=== PATIENT | female | born 1995 | race Caucasian/White ===

== ENCOUNTER 2023-02-10 20:54 | Outpatient (REF) | payer SELFPAY ==
[2023-02-14 16:08] LABS: Age Gdln ACOG Testing Note (.); IGP, rfx Aptima HPV ASCU Note (.)
== END 2023-02-10 20:55 | disposition home or self-care (01) ==
LOC: LAB 20:54
PROVIDERS: Visit Provider Obstetrics & Gynecology
DX: Z12.4 Encounter for screening for malignant neoplasm of cervix (principal)
CPT/HCPCS: G0145

== ENCOUNTER 2023-03-21 11:03 | Outpatient (OUT) | payer OTHER, SELFPAY ==
[2023-03-21 11:42] LABS: Basophils Percent Auto 0.2 % (0.2-2.0); Eosinophils Absolute Auto 0.1 10^3/uL (0.0-0.7); Eosinophils Percent Auto 1.4 % (0.9-7.0); Hematocrit 34.2 % (36.0-48.0); Hemoglobin 11.3 g/dL (12.0-16.0); Immature Granulocytes Abs Auto 0.01 10^3/uL (0.00-0.03); Immature Granulocytes Pct Auto 0.2 % (0.0-0.5); Lymphocytes Absolute Auto 1.6 10^3/uL (1.2-3.8); Lymphocytes Percent Auto 28.8 % (20.5-60.0); Mean Corpuscular Volume 87.9 fL (81.0-99.0); Mean Platelet Volume 8.9 fL (9.5-13.5); Monocytes Absolute Auto 0.4 10^3/uL (0.3-0.8); Monocytes Percent Auto 7.4 % (1.7-12.0); Neutrophils Absolute Auto 3.4 10^3/uL (1.4-6.5); Platelet Count 234 10^3/uL (150-450); Red Blood Count 3.89 10^6/uL (4.20-5.40); Red Cell Distribution Width 12.8 % (11.0-15.0); White Blood Count 5.5 10^3/uL (4.0-11.0)
[2023-03-21 11:44] LABS: Erythrocyte Sedimentation Rate 9 mm/hr (<=20)
[2023-03-21 12:11] LABS: Estimated Average Glucose 100 mg/dL; Glycohemoglobin A1C 5.1 % (4.5-6.2)
[2023-03-21 12:26] LABS: Alanine Aminotransferase 58 U/L (14-59); Albumin Globulin Ratio 0.9; Albumin Level 3.6 g/dL (3.4-5.0); Alkaline Phosphatase 73 U/L (46-116); Anion Gap 8.5; Aspartate Amino Transferase 29 U/L (15-37); BUN Creatinine Ratio 16.4; Bilirubin Total 0.3 mg/dL (0.2-1.0); Calcium 8.5 mg/dL (8.5-10.1); Carbon Dioxide 27.5 mmol/L (21.0-32.0); Chloride 103 mmol/L (98-107); Estimated GFR (African America >60 (>=60); Estimated GFR (Non-African Ame >60 (>=60); Free T3 2.52 pg/mL (2.18-3.98); Globulin 3.8 g/dL; Glucose 81 mg/dL (74-106); Magnesium 1.9 mg/dL (1.8-2.4); Sodium 135 mmol/L (136-145); Total Protein 7.4 g/dL (6.4-8.2)
--- NOTE | 2023-03-21 13:19 | CA_ITS ---
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: : 1995 Requested By: SABRINA RAMIREZ Order Number: [id number] Reading MD: SHAHLA KENDALL Interpretive Statements Predominant rhythm is sinus with average rate of 75 bpm w 1st degree AV block Tachycardia - max rate of 123 bpm - longest episode of 14min 51sec with rates between 110-117 bpm Bradycardia - min rate of 46 bpm - longest episodeof 5min 49sec with rates between 55-59 bpm Ventricular ectopy - 9 PVC Patient triggered events: 21 - associated with symptoms or palpitations, chest pain, dizziness - associated with ventricular ectopy, PACs - associated with rates of 100, 120 and the remainder NSR Impression: Predominant rhythm is sinus with average rate of 75 bpm w 1st degree AV block FAstest rate of 123 bpm and slowest rate of 46 bpm 9 PVC Electronically Signed On 04-04-2023 7:18:00 EST by SHAHLA KENDALL
[2023-03-22 04:07] LABS: Antistreptolysin O Ab 91.2 IU/mL (0.0-200.0)
== END 2023-03-21 11:04 | disposition home or self-care (01) ==
LOC: CARD 11:03
PROVIDERS: PCP Family Medicine; Visit Provider Family Medicine
DX: R00.2 Palpitations (principal)
CPT/HCPCS: 36415; 80053; 83036; 83540; 83735; 84436; 84443; 84481; 85025; 85652; 86060; 93246

== ENCOUNTER 2023-09-10 15:18 | Outpatient (OUT) | payer OTHER, SELFPAY ==
--- NOTE | 2023-09-10 15:21 | US_ITS ---
Patient Name: MINNIE TURCIOS MR#: [id number] : 1995 Exam Date: 09/10/2023 Ordering Doctor: DR Saul Eugene . RADIOLOGY REPORT PROCEDURE: US BREAST LT LIMITED COMPARISON: None. INDICATIONS: mass of left breast, unspecified quadrant N63.20 TECHNIQUE: Breast ultrasound was performed, with evaluation focusing only on specific areas of concern. FINDINGS: DIAGNOSTIC CATEGORY 0--INCOMPLETE: NEED ADDITIONAL IMAGING EVALUATION. LEFT BREAST: No abnormal or suspicious findings via ultrasound evaluation. If palpable finding persists diagnostic mammography of left breast should be performed for further evaluation. RECOMMENDATIONS: MAMMOGRAPHIC VIEWS: LEFT BREAST - MLO, CC PLEASE NOTE: A NORMAL ULTRASOUND EXAMINATION DOES NOT EXCLUDE THE POSSIBILITY OF BREAST CANCER. A CLINICALLY SUSPICIOUS PALPABLE LUMP SHOULD BE BIOPSIED. Dictated by: Daljit Chamberlain M.D. on 09/12/2023 at 14:28 Approved by: Daljit Chamberlain M.D. on 09/12/2023 at 14:31
--- OUTSIDE RECORDS SUMMARY | 2023-09-10 15:48 | XMS_ITS | CCD ---
Author Organization [facility] Care Team Providers Care Length Control Tester Name Role Phone Bakari Amezcua Unavailable Unavailable Sadiq, Michael L Unavailable Unavailable Sadiq, Michael L Unavailable Unavailable BAKRAI AMEZCUA Unavailable Unavailable NO FAMILY DOCTOR, NO FAMILY DOCTOR Unavailable Unavailable GABINITHYA DELMY RUSS Unavailable Unav ailable NO FAMILY DOCTOR, NO FAMILY DOCTOR Unavailable Unavailable HOY ., DR BENNETT Admitting Unavailable HOY ., DR BENNETT Attending Unavailable HOY ., DR BENNETT Primary Care Unavailable HOY ., DR BENNETT Consulting Unavailable HOY ., DR BENNETT Admitting Unavailable HOY ., DR BENNETT Attending Unavailable HOY ., DR BENNETT Primary Care Unavailable HOY ., DR BENNETT Consulting Unavailable MIKE ., DR HO Admitting Unavailable MIKE ., DR HO Attending Unavailable BRENDA, DR HAL Varma Primary Care Unavailable MIKE ., DR HO Consulting Unavailable Problems Active Problems Problem Classification Problem Date Documented Da te Episodic/Chronic Malaise and fatigue (1 source) Other fatigue; Translations: [OTHER FATIGUE] Onset: 09-09-2022 Episodic Other upper respiratory infections (1 source) Chronic sinusitis, unspecified; Translations: [Chronic sinusitis, unspecified] Onset: 11-25-2017 Chronic Unclassified (2 sources) Unspecified infectious disease / B99.9(ICD-9) Onset: 01-15-2018 Unclassified (2 sources) Chronic sinusitis, unspecified / J32.9(ICD-9) Onset: 11-25-2017 Past or Other Problems Problem Classification Problem Date Documented Date Episodic/Chronic Immunizations and screening for infectious disease (2 sources) Encounter for screening for human papillomavirus (HPV); Translations: [Encounter for screening for infections with a predominantly sexual mode of transmission] Onset: 12-28-2021 Episodic Other female genital disorders (1 source) Other specified noninflammatory disorders of vagina; Translations: [OTH SPEC NONINFLAMMATORY D/O VAGINA] Onset: 12-28-2021 Episodic Other screening for suspected conditions (not mental disorders or infectious disease) (4 sources) Encounter for screening for malignant neoplasm of cervix; Translations: [ENC SCREENING MALIG NEOPLASM CERV] Onset: 12-25-2021 Episodic Unclassified (1 source) Unspecified infectious disease; Translations: [Unspecified infectious disease] Onset: 01-15-2018 Results Test Name Value Interpretation Reference Range Facility CBC AUTO DIFFon 09-04-2022 BASO # 0.0 103/ul Normal 0.0-0.1 [facility] Comment on above: Performed By: #### C BC #### [facility] [address] [address] [address] Jinny Palomino Basophils/100 WBC (Bld) 0.2 % Normal 0.2-2.0 [facility] Comment on above: Performed By: #### C BC #### [facility] [address] [address] [address] Jinny Palomino EO # 0.1 103/ul Normal 0.0-0.7 [facility] Comment on above: Performed By: #### C BC #### [facility] [address] [address] [address] Jinny Palomino Eosinophils/100 WBC (Bld) 1.9 % Normal 0.9-7.0 [facility] Comment on above: Performed By: #### C BC #### [facility] [address] [address] [address] Jinny Palomino Erythrocyte distribution width (RBC) [Ratio] 12.6 % Normal 11.0-15.0 [facility] Comment on above: Performed By: #### C BC #### [facility] [address] [address] [address] Jinny Palomino Hematocrit (Bld) [Volume fraction] 35.7 % Critically low 36.0-48.0 [facility] Comment on above: Performed By: #### C BC #### [facility] [address] [address] [address] Jinny Palomino Hemoglobin (Bld) [Mass/Vol] 12.3 g/dL Normal 12.0-16.0 [facility] Comment on above: Performed By: #### C BC #### [facility] [address] [place] [address] Dr. Jinny Palomino IG # 0.01 10e3/ul Normal 0.00-0.03 [facility] Comment on above: Performed By: #### C BC #### [facility] [address] [place] [address] Dr. Jinyn Palomino IG % 0.2 % Normal 0.0-0.5 [facility] Comment on above: Performed By: #### C BC #### [facility] [address] [place] [address] Dr. Jinny Palomino LYMPH # 2.2 103/ul Normal 1.2-3.8 [facility] Comment on above: Performed By: #### C BC #### [facility] [address] [place] [address] Dr. Jinny Palomino Lymphocytes/100 WBC (Bld) 37.2 % Normal 20.5-60.0 [facility] Comment on above: Performed By: #### C BC #### [facility] [address] [place] [address] Dr. Jinny Palomino MANUAL DIFF REQ NO Normal [facility] Comment on above: Performed By: #### C BC #### [facility] [address] [place] [address] Dr. Jinny Palomino MCH (RBC) [Entitic mass] 29.1 pg Normal 26.7-34.0 [facility] Comment on above: Performed By: #### C BC #### [facility] [address] [place] [address] Dr. Jinny Palomino MCHC (RBC) [Mass/Vol] 34.5 g/dL Normal 29.9-35.2 [facility] Comment on above: Performed By: #### C BC #### [facility] [address] [place] [address] Dr. Jinny Palomino MCV (RBC) [Entitic vol] 84.6 fL Normal 81.0-99.0 [facility] Comment on above: Performed By: #### C BC #### [facility] [address] [place] [address] Dr. Jinny Palomino MONO # 0.6 103/ul Normal 0.3-0.8 [facility] Comment on above: Performed By: #### C BC #### [facility] [address] [place] [address] Dr. Jinny Palomino Monocytes/100 WBC (Bld) 9.9 % Normal 1.7-12.0 [facility] Comment on above: Performed By: #### C BC #### [facility] [address] [place] [address] Dr. Jinny Palomino NEUT # 3.0 103/ul Normal 1.4-6.5 [facility] Comment on above: Performed By: #### C BC #### [facility] [address] [place] [address] Dr. Jinny Palomino Neutrophils/100 WBC (Bld) 50.6 % Normal 43.0-75.0 [facility] Comment on above: Performed By: #### C BC #### [facility] [address] [place] [address] Dr. Jinny Palomino Platelet mean volume (Bld) [Entitic vol] 9.2 fL Critically low 9.5-13.5 [facility] Comment on above: Performed By: #### C BC #### [facility] [address] [place] [address] Dr. Jinny Palomino PLT 271 103/ul Normal 150-450 [facility] Comment on above: Performed By: #### C BC #### [facility] [address] [place] [address] Dr. Jinny Palomino RBC 4.22 106/ul Normal 4.20-5.40 [facility] Comment on above: Performed By: #### C BC #### [facility] [address] [place] [address] Dr. Jinny Palomino WBC 5.8 103/ul Normal 4.0-11.0 [facility] Comment on above: Performed By: #### C BC #### [facility] [address] [place] [address] Dr. Jinny Palomino FREE THYROXINE INDEX T7on FTI 2.87 Normal 1.30-4.50 [facility] Comment on above: Performed By: #### T SH, CMP, T7 #### [facility] [address] [place] [address] Dr. Jinny Palomino T3U 35.0 % Normal 30.0-39.0 [facility] Comment on above: Performed By: #### T SH, CMP, T7 #### [facility] [address] [place] [address] Dr. Jinny Palomino T4 [Mass/Vol] 8.20 ug/dL Normal 4.80-13.90 [facility] Comment on above: Performed By: #### T SH, CMP, T7 #### [facility] [address] [place] [address] Dr. Jinny Palomino PROF 14(COMP METB)on 023 Albumin [Mass/Vol] 3.8 g/dL Normal 3.4-5.0 [facility] Comment on above: Performed By: #### T SH, CMP, T7 #### [facility] [address] [place] [address] Dr. Jinny Palomino Albumin/Globulin [Mass ratio] 0.9 {ratio} Normal [facility] Comment on above: Performed By: #### T SH, CMP, T7 #### [facility] [address] [place] [address] Dr. Jinny Palomino ALP [Catalytic activity/Vol] 68 U/L Normal 46-116 [facility] Comment on above: Performed By: #### T SH, CMP, T7 #### [facility] [address] [place] [address] Dr. Jinny Palomino ALT [Catalytic activity/Vol] 34 U/L Normal 14-59 [facility] Comment on above: Performed By: #### T SH, CMP, T7 #### [facility] [address] [place] [address] Dr. Jinny Palomino Anion gap [Moles/Vol] 11.9 mmol/L Normal [facility] Comment on above: Performed By: #### T SH, CMP, T7 #### [facility] [address] [place] [address] Dr. Jinny Palomino AST [Catalytic activity/Vol] 16 U/L Normal 15-37 [facility] Comment on above: Performed By: #### T SH, CMP, T7 #### [facility] [address] [place] [address] Dr. Jinny Palomino Bilirubin [Mass/Vol] 0.2 mg/dL Normal 0.2-1.0 [facility] Comment on above: Performed By: #### T SH, CMP, T7 #### [facility] [address] [place] [address] Dr. Jinny Palomino Calcium [Mass/Vol] 9.3 mg/dL Normal 8.5-10.1 [facility] Comment on above: Performed By: #### T SH, CMP, T7 #### [facility] [address] [place] [address] Dr. Jinny Palomino Chloride [Moles/Vol] 104 mmol/L Normal 98-107 [facility] Comment on above: Performed By: #### T SH, CMP, T7 #### [facility] [address] [place] [address] Dr. Jinny Palomino CO2 [Moles/Vol] 24.7 mmol/L Normal 21.0-32.0 [facility] Comment on above: Performed By: #### T SH, CMP, T7 #### [facility] [address] [place] [address] Dr. Jinny Palomino Creatinine [Mass/Vol] 0.58 mg/dL Normal 0.55-1.02 [facility] Comment on above: Performed By: #### T SH, CMP, T7 #### [facility] [address] [place] [address] Dr. Jinny Palomino EGFR-AF VINCENTIAN >60 Normal >=60 [facility] Comment on above: Performed By: #### T SH, CMP, T7 #### [facility] [address] [place] [address] Dr. Jinny Palomino EGFR-NON AF VINCENTIAN >60 Normal >=60 [facility] Comment on above: Performed By: #### T LIV, CMP, T7 #### [facility] [address] [address] [address] Jinny Palomino Globulin (S) [Mass/Vol] 4.0 g/dL Normal [facility] Comment on above: Performed By: #### T LIV, CMP, T7 #### [facility] [address] [place] [address] Dr. iJnny Palomino Glucose [Mass/Vol] 88 mg/dL Normal 74-106 [facility] Comment on above: Performed By: #### T LIV CMP, T7 #### [facility] [address] [place] [address] Dr. Jinny Palomino Potassium [Moles/Vol] 3.6 mmol/L Normal 3.5-5.1 [facility] Comment on above: Performed By: #### T LIV CMP, T7 #### [facility] [address] [place] [address] Dr. Jinny Palomino Protein [Mass/Vol] 7.8 g/dL Normal 6.4-8.2 [facility] Comment on above: Performed By: #### T LIV CMP, T7 #### [facility] [address] [place] [address] Dr. Jinny Palomino Sodium [Moles/Vol] 137 mmol/L Normal 136-145 [facility] Comment on above: Performed By: #### T LIV CMP, T7 #### [facility] [address] [place] [address] Dr. Jinny Palomino Urea nitrogen [Mass/Vol] 10.0 mg/dL Normal 7.0-18.0 [facility] Comment on above: Performed By: #### T LIV, CMP, T7 #### [facility] [address] [place] [address] Dr. Jinny Palomino Urea nitrogen/Creatinin e [Mass ratio] 17.2 mg/mg Normal [facility] Comment on above: Performed By: #### T LIV, CMP, T7 #### [facility] [address] [place] [address] Dr. Jinny Palomino TSHon 09-04-2022 TSH 2.195 uIU/mL Normal 0.358-3.740 [facility] Comment on above: Performed By: #### T SH, CMP, T7 #### [facility] [address] [place] [address] Dr. Jinny Palomino VITAMIN D 25 OHon 09-04-2022 VIT D 25-OH 40.3 ng/mL Normal [facility] Comment on above: Performed By: #### V ITAD #### [facility] [address] [place] [address] Dr. Jinny Palomino VIT D RANGES SEE BELOW Normal [facility] Comment on above: Result Comment: <20 ng/mL Vit D deficient 20 - <30 ng/mL Vit D insufficient 30 - 100 ng/mL Vit D sufficient >100 ng/mL Potential Toxicity Performed By: #### V ITAD #### [facility] [address] [place] [address] Dr. Jinny Palomino GLYCOHEMOGLOBIN A1Con 2022 ADA RECOMMENDATION SEE BELOW Normal [facility] Comment on above: Result Comment: ADA RECOMMENDED LIMIT 4.0 - 6.0 ADA THERAPEUTIC TARGET < 7.0 ACTION SUGGESTED > 7.0 Performed By: #### D ATA1C #### [facility] [address] [place] [address] Dr. Jinny Palomino Glucose [Mass/Vol] 105 mg/dL Normal [facility] Comment on above: Performed By: #### D ATA1C #### [facility] [address] [place] [address] Dr. Jinny Palomino HbA1c (Bld) [Mass fraction] 5.3 % Normal 4.5-6.2 [facility] Comment on above: Performed By: #### D ATA1C #### [facility] [address] [place] [address] Dr. Jinny Palomino US Pelvic Complete w/Transva ginalon 06-18-2022 US Pelvic Complete w/Transvaginal COMPARISON: NONE. TECHNIQUE: Grayscale images and Doppler images transabdominal and endovaginal images of the pelvis were obtained in multiple planes. FINDINGS: The uterus measures 5.9 x 4.6 x 3.2 cm, the endometrium measures 7 mm There is no free fluid. The right ovary measures 2.2 x 1.9 x 2.2 cm The left ovary measures 3.9 x 1.9 x 2.5cm Both ovaries demonstrate vascular flow. There are small follicular cysts. The largest simple cyst in the left ovary width a diameter of 1.2 x 1.3 x 1.2 cm. IMPRESSION: The study is within normal limits. 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 Performed at: [address] [id number] PhD Preet Blevins Performed By: #### 8 [id number], [id number], [id number], [id number], [id number], [id number] ####[facility] [address] [place] [address] HCV Antibody RFX to Quant PC José Luis 02-01-2022 HCV Ab Signal/Cutoff IA [Rel units/Vol] {ratio} Invalid Interpretation Code 0.0-0.9 [facility] Comment on above: Result Comment: Perf ormed at: [address] [id number] PhD Preet Blevins Performed By: #### 8 [id number], [id number], [id number], [id number], [id number], [id number] ####[facility] [address] [place] [address] Hep Bs Abon 02-01-2022 HBV surface Ab Ql (S) Reactive Invalid Interpretation Code [facility] Comment on above: Result Comment: Non Reactive: Inconsistent with immunity, less than 10 mIU/mL Reactive: Consistent with immunity, greater than 9.9 mIU/mL Performed at: [address] [id number] PhD Preet Blevins Performed By: #### 8 [id number], [id number], [id number], [id number], [id number], [id number] #### [facility] [address] [place] [address] Hep Bs Agon 02-01-2022 HBV surface Ag IA Ql Negative Invalid Interpretation Code Negative [facility] Comment on above: Result Comment: Perf ormed at: [facility] [address] [id number] PhD Preet Blevins Performed By: #### 8 [id number], [id number], [id number], [id number], [id number], [id number] ####[facility] [address] [place] [address] Jhony 01-30-2022 ALT No additional P-5'-P [Catalytic activity/Vol] 16 Int._Unit/L Normal 6-46 [facility] Comment on above: Performed By: #### 8 [id number], [id number], [id number], [id number], [id number], [id number] #### [facility] [address] [place] [address] Consent for Treatmenton Consent for Treatment [id number]:12 7 Normal [facility] HIV-1/2 Ag/Ab Comboon 2021 HIV 1+2 Ab and HIV1 p24 Ag IA.rapid Nom (S/P/Bld) Negative Normal Negative [facility] Comment on above: Performed By: #### 8 [id number], [id number], [id number], [id number], [id number], [id number] #### [facility] [address] [place] [address] HIV 1+2 Ab+HIV1 p24 Ag IA Ql Non-Reactive Normal Non-Reactive [facility] Comment on above: Performed By: #### 8 [id number], [id number], [id number], [id number], [id number], [id number] #### [facility] [address] [place] [address] HIV Combo Internal Control Line Reactive Normal Reactive [facility] Comment on above: Performed By: #### 8 [id number], [id number], [id number], [id number], [id number], [id number] #### [facility] [address] [place] [address] HIV-1/2 Ag/Ab Combo Negative for HIV-1 and/or HIV-2 antibodies and HIV-1 p24 antigen. Normal Negative [facility] Physician Orderon 01-30-2022 Physician Order [id number]:1 27 Normal [facility] PAP ACOG PANEL 2: 21 to 29on 12-29-2021 . . Normal [facility] Comment on above: Performed By: #### 4 [id number] #### [facility] [address] [place] [address] Dr. Jinny Palomino Age Gdln ACOG Testing - [facility] Comment on above: Performed By: #### 4 [id number] #### [facility] [address] [place] [address] Dr. Jinny Palomino DIAGNOSIS: Comment [facility] Comment on above: Result Comment: NEGA TIVE FOR INTRAEPITHELIAL LESION OR MALIGNANCY. Performed By: #### 4 [id number] #### [facility] [address] [place] [address] Dr. Jinny Palomino Methodology: Comment [facility] Comment on above: Result Comment: This liquid based ThinPrep(R) pap test was screened with the use of an image guided system. Performed By: #### 4 [id number] #### [facility] [address] [place] [address] Dr. Jinny Palomino Note: Comment [facility] Comment on above: Result Comment: The Pap smear is a screening test designed to aid in the detection of premalignant and malignant conditions of the uterine cervix. It is not a diagnostic procedure and should not be used as the sole means of detecting cervical cancer. Both false-positive and false-negative reports do occur. . Performed By: #### 4 [id number] #### [facility] [address] [place] [address] Dr. Jinny Palomino Performed by: Comment Normal [facility] Comment on above: Result Comment: Allison Coyle, Gasoline Attendant (ASCP) Performed By: #### 4 [id number] #### [facility] [address] [place] [address] Dr. Jinny Palomino Reflex Criteria: Comment Normal [facility] Comment on above: Result Comment: The HPV DNA reflex criteria were not met with this specimen result therefore, no HPV testing was performed. . Performed By: #### 4 [id number] #### [facility] [address] [place] [address] Dr. Jinny Palomino Specimen adequacy: Comment Normal [facility] Comment on above: Result Comment: Sati sfactory for evaluation. Endocervical and/or squamous metaplastic cells (endocervical component) are present. Performed By: #### 4 [id number] #### [facility] [address] [place] [address] Dr. Jinny Palomino CHLAMYDIA/GONOCOCCUS RANDALL (SW AB/URINE/PAPon 12-28-2021 Chlamydia trachomatis, RANDALL Negative Normal Negative [facility] Comment on above: Performed By: #### C T/NGNA #### [facility] [address] [place] [address] Dr. Jinny Palomino Neisseria gonorrhoeae, RANDALL Negative Normal Negative [facility] Comment on above: Performed By: #### C T/NGNA #### [facility] [address] [place] [address] Dr. Jinny Palomino VAGINITIS/VAGINOSIS DNA PROB Prosper 12-27-2021 [place] species Negative Normal Negative [facility] Comment on above: Performed By: #### V AGINT #### [facility] [address] [place] [address] Dr. Jinny Palomino Gardnerella vaginalis Negative Normal Negative [facility] Comment on above: Performed By: #### V AGINT #### [facility] [address] [address] [address] Jinny Palomino Trichomonas vaginalis Negative Normal Negative [facility] Comment on above: Performed By: #### V AGINT #### [facility] [address] [address] [address] Jinny Palomino Hep Bs Abon 2021 HBV surface Ab Ql (S) Reactive Invalid Interpretation Code [facility] Comment on above: Result Comment: Non Reactive: Inconsistent with immunity, less than 10 mIU/mL Reactive: Consistent with immunity, greater than 9.9 mIU/mL Performed at: [address] [id number] PhD Preet Blevins Performed By: #### 1 [id number], [id number], [id number], [id number] #### [facility] [address] [place] [address] Measles/Mumps/Rubella Immuni tyon 2021 MeV IgG IA Qn (S) 59.4 A unit/mL Invalid Interpretation Code Immune >16.4 [facility] Comment on above: Result Comment: Nega tive <13.5 Equivocal 13.5 - 16.4 Positive >16.4 Presence of antibodies to Rubeola is presumptive evidence of immunity except when acute infection is suspected. Performed By: #### 1 [id number], [id number], [id number], [id number] #### [facility] [address] [place] [address] MuV IgG IA Qn (S) 52.4 A unit/mL Invalid Interpretation Code Immune >10.9 [facility] Comment on above: Result Comment: Nega tive <9.0 Equivocal 9.0 - 10.9 Positive >10.9 A positive result generally indicates past exposure to Mumps virus or previous vaccination. Performed at: [facility] [address] [place] [address] [id number] PhD Preet Blevins Performed By: #### 1 [id number], [id number], [id number], [id number] #### [facility] [address] [place], [place] [id number] Rubella virus IgG Qn (S) [IU]/mL Low Immune >0.99 [facility] Comment on above: Result Comment: Non- immune <0.90 Equivocal 0.90 - 0.99 Immune >0.99 Performed By: #### 1 [id number], [id number], [id number], [id number] #### [facility] [address] [place] [address]31 Quantiferon-TB Plus (Client Incubated)on 2021 Gamma interferon background IA Qn (Bld) 0.03 International_Unit/mL Invalid Interpretation Code [facility] Comment on above: Performed By: #### 1 [id number], [id number], [id number], [id number] #### [facility] [address] [place] [address] 32622 M. tuberculosis stim IFN-g by CD4+ CD8+ T-cells corrected for background Qn (Bld) 0.06 International_Unit/mL Invalid Interpretation Code [facility] Comment on above: Performed By: #### 1 [id number], [id number], [id number], [id number] #### [facility] [address] [place], [place] [id number] M. tuberculosis stim IFN-g by CD4+ T-cells corrected for background Qn (Bld) 0.04 International_Unit/mL Invalid Interpretation Code [facility] Comment on above: Performed By: #### 1 [id number], [id number], [id number], [id number] #### [facility] [address] [place] [address] 43930 M. tuberculosis stim IFN-g Ql (Bld) [Interp] Negative Invalid Interpretation Code Negative [facility] Comment on above: Result Comment: The specimen received for QuantiFERON testing was incubated by the ordering institution. Specific procedures outlined in our Directory of Services and in the package insert for the QuantiFERON Gold (In Tube) test must be followed to enable for proper stimulation of cells for the production of interferon gamma. Chemiluminescence immunoassay methodology Performed at: [address] [id number] PhD Preet Blevins Performed By: #### 1 [id number], [id number], [id number], [id number] #### [facility] [address] [place] [address] Mitogen stimulated gamma interferon Qn (Bld) >10.00 Invalid Interpretation Code [facility] Comment on above: Performed By: #### 1 [id number], [id number], [id number], [id number] #### [facility] [address] [place] [address] Service comment (Unsp spec) [Interp] Comment Invalid Interpretation Code [facility] Comment on above: Result Comment: The QuantiFERON-TB Gold Plus result is determined by subtracting the Nil value from either TB antigen (Ag) tube. The mitogen tube serves as a control for the test. Performed By: #### 1 [id number], [id number], [id number], [id number] #### [facility] [address] [place] [address]24 Varic IgGon 2021 VZV IgG IA Qn (S) 236 Invalid Interpretation Code Immune >165 [facility] Comment on above: Result Comment: Nega tive <135 Equivocal 135 - 165 Positive >165 A positive result generally indicates exposure to the pathogen or administration of specific immunoglobulins, but it is not indication of active infection or stage of disease. Performed at: [facility] [address] [place], [place] [id number] PhD Preet Blevins Performed By: #### 1 [id number], [id number], [id number], [id number] #### [facility] [address] [place] [address] Consent for Treatmenton 07-24 Consent for Treatment [id number]#1.00CD:12 7 Normal [facility] Physician Orderon 08-03-2021 Physician Order [id number]#1.00CD:1 27 Normal [facility] Pneumococcal Abs, IgG (23 Se rotypes)on 01-15-2018 Pneumo Serotyp 10A, IgG (PNX) 16.60 ug/mL Normal [facility] Comment on above: Performed By: #### P NEM2 ####[id number] [place] [address] Pneumo Serotyp 11A, IgG (PNX) 8.89 ug/mL Normal [facility] Comment on above: Performed By: #### P NEM2 ####[id number] [place] [address] Pneumo Serotyp 12F, IgG (PNX) 3.13 ug/mL [facility] Comment on above: Performed By: #### P NEM2 ####[id number] [place] [address] Pneumo Serotyp 15B, IgG (PNX) 27.97 ug/mL [facility] Comment on above: Performed By: #### P NEM2 ####[id number] [place] [address] Pneumo Serotyp 17F, IgG (PNX) 18.01 ug/mL Normal [facility] Comment on above: Performed By: #### P NEM2 ####[id number] [place] [address] Pneumo Serotyp 18C, IgG (P7,P13,PNX) 3.28 ug/mL Normal [facility] Comment on above: Performed By: #### P NEM2 ####[id number] [place] [address] Pneumo Serotyp 19A, IgG (P13,PNX) 5.63 ug/mL Normal [facility] Comment on above: Performed By: #### P NEM2 ####[id number] [place] [address] Pneumo Serotyp 19F, IgG (P7,P13,PNX) 0.73 ug/mL Normal [facility] Comment on above: Performed By: #### P NEM2 ####[id number] [place] [address] Pneumo Serotyp 2, IgG (PNX) 13.09 ug/mL Normal [facility] Comment on above: Performed By: #### P NEM2 ####[id number] [place] [address] Pneumo Serotyp 20, IgG (PNX) 4.93 ug/mL Normal [facility] Comment on above: Performed By: #### P NEM2 ####[id number] [place] [address] Pneumo Serotyp 22F, IgG (PNX) 1.92 ug/mL Normal [facility] Comment on above: Performed By: #### P NEM2 ####[id number] [place] [address] Pneumo Serotyp 23F, IgG (P7,P13,PNX) 2.05 ug/mL Normal [facility] Comment on above: Performed By: #### P NEM2 ####[id number] [place] [address] Pneumo Serotyp 33F, IgG (PNX) 2.40 ug/mL Normal [facility] Comment on above: Performed By: #### P NEM2 ####[id number] [place] [address] Pneumo Serotype 1, IgG (P13,PNX) 10.98 ug/mL Normal [facility] Comment on above: Performed By: #### P NEM2 ####[id number] [place] [address] Pneumo Serotype 14, IgG (P7,P13,PNX) 1.63 ug/mL Normal [facility] Comment on above: Performed By: #### P NEM2 ####[id number] [place] [address] Pneumo Serotype 3, IgG (P13,PNX) 2.46 ug/mL Normal [facility] Comment on above: Performed By: #### P NEM2 ####[id number] [place] [address] Pneumo Serotype 4, IgG (P7,P13,PNX) 4.97 ug/mL Normal [facility] Comment on above: Performed By: #### P NEM2 ####[id number] [place] [address] Pneumo Serotype 5, IgG (P13,PNX) 6.58 ug/mL Normal [facility] Comment on above: Performed By: #### P NEM2 ####[id number] [place] [address] Pneumo Serotype 6B, IgG (P7,P13,PNX) 0.37 ug/mL Normal [facility] Comment on above: Performed By: #### P NEM2 ####[id number] [place] [address] Pneumo Serotype 7F, IgG (P13,PNX) 14.71 ug/mL Normal [facility] Comment on above: Performed By: #### P NEM2 ####[id number] [place] [address] Pneumo Serotype 8, IgG (PNX) 7.28 ug/mL Normal [facility] Comment on above: Performed By: #### P NEM2 ####[id number] [place] [address] Pneumo Serotype 9N, IgG (PNX) 1.94 ug/mL Normal [facility] Comment on above: Performed By: #### P NEM2 ####[id number] [place] [address] Pneumo Serotype 9V, IgG (P7,P13,PNX) 2.30 ug/mL [facility] Comment on above: Performed By: #### P NEM2 ####[id number] [place] [address] Pneumo Serotype Interp See Note Normal [facility] Comment on above: Result Comment: INTE RPRETIVE INFORMATION: Streptococcus pneumoniae Antibodies,IgGA pre- and post-vaccination comparison is required toadequately assess the humoral immune response to Prevnar 7(P7), Prevnar 13 (P13), and/or Pneumovax 23 (PNX)Streptococcus pneumoniae vaccines. Pre-vaccination samplesshould be collected prior to vaccine administration.Post-vaccination samples should be obtained at least 4 weeksafter immunization. Testing of post-vaccination samples alonewill provide only general immune status of the individual tovarious pneumococcal serotypes.In the case of pure polysaccharide vaccine, indication ofimmune system competence is further delineated as an adequateresponse to at least 50 percent of the serotypes in thevaccine challenge for those 2-5 years of age and to at least70 percent of the serotypes in the vaccine challenge for those6-65 years of age. Individual immune response may vary basedon age, past exposure, immunocompetence, and pneumococcalserotype.Responder Status Antibody RatioNon-Responder . . . . . . . . . . . . . . Less than 2-foldWeak Responder . . . . . . . . . . . . . 2-fold to 4-foldGood Responder . . . . . . . . . . . . . Greater than 4-foldA response to 50-70 percent or more of the serotypes in thevaccine challenge is considered a normal humoral response(1).Antibody concentration greater than 1.0 - 1.3 ug/mL isgenerally considered long-term protection(2).References:1. Sherry BUENROSTRO, Stanley JW, Jordy X, HE, Clemente HR.Multilaboratory assessment of threshold versus fold-changealgorithms for minimizing analytical variability inmultiplexed pneumococcal IgG measurements. Clin VaccineImmunol. 2014;21(7):982-8.2. Sherry BUENROSTRO, Clemente HR. Use and Clinical Interpretation ofPneumococcal Antibody Measurements in the Evaluation ofHumoral Immune Function. Clin Vaccine Immunol.2015;22(2):148-152.Test developed and characteristics determined by [employer]. See Compliance Statement B: appAttach/CSPerformed by [employer],[address] [place] [address] [email or web address], Vishnu Queen MD - Lab. Director Performed By: #### P NEM2 ####[id number] [place] [address] Complement Act, Totalon 07-0 Complement Act, Total 137 Units Normal 60-144 [facility] Comment on above: Result Comment: INTE RPRETIVE INFORMATION: Complement Activity, Total EIA59 Units or less .......... Num00-458 Units .............. Fjveex924 Units or greater ....... HighPerformed by [employer],[address] [id number] [email or web address], Vishnu Queen MD - Lab. Director Performed By: #### 1 [id number] ####[id number] [place] [address] Diphtheria/Tetanus IgGon Diptheria Ab, IgG 4.8 IU/mL Normal [facility] Comment on above: Result Comment: INTE RPRETIVE INFORMATION: Diphtheria Ab, IgGAntibody concentration of greater than 0.1 IU/mL is usuallyconsidered protective.Responder status is determined according to the ratio of a onemonth post-vaccination sample to pre-vaccinationconcentrations of Diphtheria IgG Abs as follows:1. If the one month post-vaccination concentration is lessthan 1.0 IU/mL, the patient is considered to be anon-responder.2. If the post-vaccination concentration is greater than orequal to 1.0 IU/mL, a patient with a ratio of less than1.5 is a non-responder, a ratio of 1.5 to less than 3.0,a weak responder, and a ratio of 3.0 or greater, a goodresponder.3. If the pre-vaccination concentration is greater than1.0 IU/mL, it may be difficult to assess the responsebased on a ratio alone. A post-vaccination concentrationabove 2.5 IU/mL in this case is usually adequate.Test developed and characteristics determined by [employer]. See Compliance Statement B: [employer]/ Performed By: #### 0 [id number] ####[id number] [place] [address] Tetanus Ab, IgG 5.2 IU/mL Normal [facility] Comment on above: Result Comment: INTE RPRETIVE INFORMATION: Tetanus Ab, IgGAntibody concentration of greater than 0.1 IU/mL is usuallyconsidered protective.Responder status is determined according to the ratio of aone-month post-vaccination sample to pre-vaccinationconcentration of Tetanus IgG Abs as follows:1. If the one month post-vaccination concentration isless than 1.0 IU/mL, the patient is considered anon-responder.2. If the post-vaccination concentration is greater thanor equal to 1.0 IU/mL, a patient with a ratio of lessthan 1.5 is a non-responder, a ratio of 1.5 to lessthan 3.0, a weak responder, and a ratio of 3.0 orgreater, a good responder.3. If the pre-vaccination concentration is greater than1.0 IU/mL, it may be difficult to assess the responsebased on a ratio alone. A post-vaccinationconcentration above 2.5 IU/mL in this case is usuallyadequate.Test developed and characteristics determined by [employer]. See Compliance Statement B: appAttach/CSPerformed by [employer],[address] [place] [address] [email or web address], Vishnu Queen MD - Lab. Director Performed By: #### 0 [id number] ####[id number] [place] [address] H. Influenzae B, IgGon 11-25 H. Influenzae B, IgG 4.1 ug/mL Normal [facility] Comment on above: Result Comment: INTE RPRETIVE INFORMATION: H. Influenzae b Ab, IgGLess than 1.0 ug/mL ...... Antibody concentration notprotective.1.0 ug/mL or greater ..... Antibodies to H. Influenzae bdetected. Suggestive ofprotection.Responder status is determined according to the ratio ofpost-vaccination concentration to pre-vaccinationconcentration of Haemophilus influenza b antibody, IgG asfollows:1. If the post-vaccination concentration is less than3.0 ug/mL, the patient is considered to be anon-responder.2. If the post-vaccination concentration is greater thanor equal to 3.0 ug/mL, a patient with a ratio ofgreater than or equal to 4 is a good responder, a ratioof 2-4 is a weak responder, and a ratio of less than 2is considered a non-responder.Test developed and characteristics determined by [employer]. See Compliance Statement B: appAttach/CSPerformed by [employer],[address] [place] [address] [email or web address], Vishnu Queen MD - Lab. Director Performed By: #### 0 [id number] ####[id number] [place] [address] IgG Subclasseson 11-25-2017 IgG mass conc 1130 mg/dL Normal 700-1600 [facility] Comment on above: Result Comment: MONO CLONAL PROTEINS MAY CAUSE FALSELY LOWRESULTS IN THIS ASSAY. SERUM PROTEINELECTROPHORESIS SHOULD BE DONE THEFIRST TEST TO EVALUATE MONOCLONAL GAMMOPATHY. IgG Subclass 1 841 mg/dL Normal 490-1140 [facility] IgG Subclass 2 288 mg/dL Normal 150-640 [facility] IgG Subclass 3 55 mg/dL Normal 11-85 [facility] IgG Subclass 4 10 mg/dL Normal 3-[address] [facility] [address] [facility] Comment on above: Result Comment: DUE TO INHERENT IMPRECISION OF METHODS, THESUM OF COMPONENTS MAY DIFFER FROM TOTAL IGGBY MUCH 20%. Immunoglobulin Qnt (IgA, IgG , IgM)on 11-25-2017 IgA mass conc 241 mg/dL Normal 70-[address] [facility] Comment on above: Result Comment: MONO CLONAL PROTEINS MAY CAUSE FALSELY LOWRESULTS IN THIS ASSAY. SERUM PROTEINELECTROPHORESIS SHOULD BE DONE THEFIRST TEST TO EVALUATE MONOCLONAL GAMMOPATHY. IgM mass conc 60 mg/dL Normal 40-[address] [facility] Comment on above: Result Comment: MONO CLONAL PROTEINS MAY CAUSE FALSELY LOWRESULTS IN THIS ASSAY. SERUM PROTEINELECTROPHORESIS SHOULD BE DONE THEFIRST TEST TO EVALUATE MONOCLONAL GAMMOPATHY. Office Visit (Otolaryngology )on 11-25-2017 Office Visit (Otolaryngology) Chief ComplaintRECURRENT STREP THROAT NO PCP History of Present IllnessThe patient is a 22-year-old female who is seen today were evaluation of recurrent strep pharyngitis. According to the patient she has had too many episodes to count. She gets associated bouts of stomatitis. She has no other worrisome ENT issues. Prior to surgical wisdom teeth removal otherwise unremarkable. Numerous rounds of antibiotic therapy for her previous throat infections.The patient's intake form incorporating patient medical history, social history, family history, and review of systems was reviewed by me today in the office and signed on this date and entered into the EMR system. Review of SystemsA detailed review of systems is as noted on the intake form and is reviewed with the patient and is signed by me on this date. Family History No pertinent family history Social History Never a smoker Allergies No Known Drug Allergies Recorded By: Emelina Rosario; 11/25/2017 3:23:22 PM Vitals Vital Signs Recorded: [id number] 03:14FVUxjtmw6 ft 2 tsAvsfiq459 lb BMI Vbywljiypw75.61BSA Calculated1.64 Physical ExamGeneral appearance: No acute distress. Normal facies. Symmetric facial movement. No gross lesions of the face are noted.No acute distress.The external ear structures appear normal. The ear canals patent and the tympanic membranes are intact without evidence of air-fluid levels, retraction, or congenital defects. Anterior rhinoscopy notes essentially a midline nasal septum. Examination is noted for normal healthy mucosal membranes without any evidence of lesions, polyps, or exudate. The tongue is normally mobile. There are no lesions on the gingiva, buccal, or oral mucosa. There are no oral cavity masses.The neck is negative for mass lymphadenopathy. The trachea and parotid are clear. The thyroid bed is grossly unremarkable. The salivary gland structures are grossly unremarkable. The laryngeal structures are noted for grossly normal appearance. The true vocal cords, the false focal cords, and the remaining structures including the epiglottis, piriform sinuses, and base of tongue are all grossly normal. There is no evidence of gross mass nodule, polyp, tumor or other defect. Diagnoses/Problems Chronic pharyngitis (472.1) (J31.2) Provider ImpressionsHistory of chronic pharyngitis. At this point in time if not seen her with an active infection and based on her history she certainly could have some evidence of stomatitis or mucositis in addition to the history of pharyngitis. I would like to see her the next time she gets an infection plan accordingly. Based on the numerous recurrent pattern however she could certainly also be considered a candidate for tonsillectomy and I may consider that if indeed she gets further issues. I will go ahead and check an immune blood panel just to make sure were not missing some sort of immune deficiency. If that is all unremarkable I will ask that she make a definitive decision as to how aggressive she wants to get with tonsillectomy. Long thorough discussion today with the patient and her mother in that regard.Thank you again for allowing us to participate in the care of this patient.This note was created with voice recognition software and has not been corrected for typographical or grammatical errors. Patient Discussion/SummaryHistory of chronic pharyngitis. At this point in time if not seen her with an active infection and based on her history she certainly could have some evidence of stomatitis or mucositis in addition to the history of pharyngitis. I would like to see her the next time she gets an infection plan accordingly. Based on the numerous recurrent pattern however she could certainly also be considered a candidate for tonsillectomy and I may consider that if indeed she gets further issues. I will go ahead and check an immune blood panel just to make sure were not missing some sort of immune deficiency. If that is all unremarkable I will ask that she make a definitive decision as to how aggressive she wants to get with tonsillectomy. Long thorough discussion today with the patient and her mother in that regard. Signatures Electronically signed by : Bakari Amezcua MD; Nov 25 2017 6:08PM EST (Author) Normal [facility] Pneumococcal Abs, IgG (23 Se rotypes)on 11-25-2017 Pneumo Serotyp 10A, IgG (PNX) 3.18 ug/mL Normal [facility] Comment on above: Performed By: #### P NEM2 ####[id number] [place] [address] Pneumo Serotyp 11A, IgG (PNX) 1.78 ug/mL Normal [facility] Comment on above: Performed By: #### P NEM2 ####[id number] [place] [address] Pneumo Serotyp 12F, IgG (PNX) 0.25 ug/mL Normal [facility] Comment on above: Performed By: #### P NEM2 ####[id number] [place] [address] Pneumo Serotyp 15B, IgG (PNX) 4.19 ug/mL Normal [facility] Comment on above: Performed By: #### P NEM2 ####[id number] [place] [address] Pneumo Serotyp 17F, IgG (PNX) 3.99 ug/mL Normal [facility] Comment on above: Performed By: #### P NEM2 ####[id number] [place] [address] Pneumo Serotyp 18C, IgG (P7,P13,PNX) 0.08 ug/mL Normal [facility] Comment on above: Performed By: #### P NEM2 ####[id number] [place] [address] Pneumo Serotyp 19A, IgG (P13,PNX) 1.98 ug/mL Normal [facility] Comment on above: Performed By: #### P NEM2 ####[id number] [place] [address] Pneumo Serotyp 19F, IgG (P7,P13,PNX) 0.27 ug/mL Normal [facility] Comment on above: Performed By: #### P NEM2 ####[id number] [place] [address] Pneumo Serotyp 2, IgG (PNX) 6.07 ug/mL Normal [facility] Comment on above: Performed By: #### P NEM2 ####[id number] [place] [address] Pneumo Serotyp 20, IgG (PNX) 1.46 ug/mL Normal [facility] Comment on above: Performed By: #### P NEM2 ####[id number] [place] [address] Pneumo Serotyp 22F, IgG (PNX) 0.12 ug/mL Normal [facility] Comment on above: Performed By: #### P NEM2 ####[id number] [place] [address] Pneumo Serotyp 23F, IgG (P7,P13,PNX) 0.27 ug/mL Normal [facility] Comment on above: Performed By: #### P NEM2 ####[id number] [place] [address] Pneumo Serotyp 33F, IgG (PNX) 1.01 ug/mL Normal [facility] Comment on above: Performed By: #### P NEM2 ####[id number] [place] [address] Pneumo Serotype 1, IgG (P13,PNX) 0.07 ug/mL Normal [facility] Comment on above: Performed By: #### P NEM2 ####[id number] [place] [address] Pneumo Serotype 14, IgG (P7,P13,PNX) 0.16 ug/mL Normal [facility] Comment on above: Performed By: #### P NEM2 ####[id number] [place] [address] Pneumo Serotype 3, IgG (P13,PNX) 0.71 ug/mL Normal [facility] Comment on above: Performed By: #### P NEM2 ####[id number] [place] [address] Pneumo Serotype 4, IgG (P7,P13,PNX) 0.41 ug/mL Normal [facility] Comment on above: Performed By: #### P NEM2 ####[id number] [place] [address] Pneumo Serotype 5, IgG (P13,PNX) 1.93 ug/mL Normal [facility] Comment on above: Performed By: #### P NEM2 ####[id number] [place] [address] Pneumo Serotype 6B, IgG (P7,P13,PNX) 0.23 ug/mL Normal [facility] Comment on above: Performed By: #### P NEM2 ####[id number] [place] [address] Pneumo Serotype 7F, IgG (P13,PNX) 0.82 ug/mL Normal [facility] Comment on above: Performed By: #### P NEM2 ####[id number] [place] [address] Pneumo Serotype 8, IgG (PNX) 0.37 ug/mL Normal [facility] Comment on above: Performed By: #### P NEM2 ####[id number] [place] [address] Pneumo Serotype 9N, IgG (PNX) 0.30 ug/mL Normal [facility] Comment on above: Performed By: #### P NEM2 ####[id number] [place] [address] Pneumo Serotype 9V, IgG (P7,P13,PNX) 0.05 ug/mL Normal [facility] Comment on above: Performed By: #### P NEM2 ####[id number] [place] [address] Pneumo Serotype Interp See Note Normal [facility] Comment on above: Result Comment: INTE RPRETIVE INFORMATION: Streptococcus pneumoniae Antibodies,IgGA pre- and post-vaccination comparison is required toadequately assess the humoral immune response to Prevnar 7(P7), Prevnar 13 (P13), and/or Pneumovax 23 (PNX)Streptococcus pneumoniae vaccines. Pre-vaccination samplesshould be collected prior to vaccine administration.Post-vaccination samples should be obtained at least 4 weeksafter immunization. Testing of post-vaccination samples alonewill provide only general immune status of the individual tovarious pneumococcal serotypes.In the case of pure polysaccharide vaccine, indication ofimmune system competence is further delineated as an adequateresponse to at least 50 percent of the serotypes in thevaccine challenge for those 2-5 years of age and to at least70 percent of the serotypes in the vaccine challenge for those6-65 years of age. Individual immune response may vary basedon age, past exposure, immunocompetence, and pneumococcalserotype.Responder Status Antibody RatioNon-Responder . . . . . . . . . . . . . . Less than 2-foldWeak Responder . . . . . . . . . . . . . 2-fold to 4-foldGood Responder . . . . . . . . . . . . . Greater than 4-foldA response to 50-70 percent or more of the serotypes in thevaccine challenge is considered a normal humoral response(1).Antibody concentration greater than 1.0 - 1.3 ug/mL isgenerally considered long-term protection(2).References:1. Sherry BUENROSTRO, Stanley RUSHING, Jordy X, Prince OLEA, Clemente NULL.Multilaboratory assessment of threshold versus fold-changealgorithms for minimizing analytical variability inmultiplexed pneumococcal IgG measurements. Clin VaccineImmunol. 2014;21(7):982-8.2. Sherry BUENROSTRO, Clemente NULL. Use and Clinical Interpretation ofPneumococcal Antibody Measurements in the Evaluation ofHumoral Immune Function. Clin Vaccine Immunol.2015;22(2):148-152.Test developed and characteristics determined by [employer]. See Compliance Statement B: [employer]/CSPerformed by [employer],[address] [place] [address] [email or web address], Vishnu Queen MD - Lab. Director Performed By: #### P NEM2 ####[id number] [place] [address] Encounters Encounter Date Encounter Type Care Provider Facility Start: 09-09-2022 Encounter for genera l adult medical examination without abnormal findings DR SABRINA RAMIREZ . [facility] Start: 09-04-2022 End: 09-05-[address] SABRINA RAMIREZ . Facility:[facility] Start: 09-04-2022 End: 09-05-2022 Encounter for general adult medical examination without abnormal findings DR SABRINA RAMIREZ . Facility:[facility] Start: 08-22-2022 End: 08-23-[address] SABRINA RAMIREZ . Facility:[facility] Start: 12-25-2021 End: 12-25-[address] VIC MCKEON . Facility:[facility] Start: 01-15-2018 Patient encounter DELMY ASHLEY NITHYA P[place]TA [place]DA Facility:[facility] Start: 11-25-2017 Patient encounter BAKARI AMEZCUA Jimena y:[facility] Start: 11-25-2017 Ambulatory Bakari Amezcua Facility :[id number] Payers Date Payer Category Payer Unknown [id number] 1995 Unknown [id number] 1995 Unknown [id number] 1959 Private Health Insurance [id number] 1959 Self-pay Unknown [id number] Unknown [id number] [id number] Unknown [id number] Summary Purpose Family History No Family History Records FoundNo Family History Records FoundNo Family History Records FoundNo Family History Records FoundNo Family History Records FoundNo Family History Records Found Advance Directives No Advanced Directives Records FoundNo Advanced Directives Records FoundNo Advanced Directives Records FoundNo Advanced Directives Records FoundNo Advanced Directives Records FoundNo Advanced Directives Records Found Additional Source Comments INFORMATION SOURCE (unrecogn ized section and content) DATE CREATED AUTHOR 11/25/2017 [employer] DATE CREATED AUTHOR AUTHOR'S ORGANIZ ATION 12/02/2017 [facility] DATE CREATED AUTHOR AUTHOR'S ORGANIZ ATION 02/16/2018 [facility] DATE CREATED AUTHOR AUTHOR'S ORGANIZ ATION 02/01/2022 Ilir Wallace [facility] DATE CREATED AUTHOR AUTHOR'S ORGANIZ ATION 06/19/2022 [facility] dical Specialist DATE CREATED AUTHOR AUTHOR'S ORGANIZ ATION 09/09/2022 Agap[employer] prado FOR RECORDS PERTAINING TO PATIENTS WHO ARE OR HAVE BEEN ENROLLED IN A CHEMICAL DEPENDENCY/SUBSTANCEABUSE PROGRAM, SOME INFORMATION MAY BE OMITTED. This clinical summary was aggregated from multiple sources. Caution should be exercised in using it in the provision of clinical care. This summary normalizes information from multiple sources, and as a consequence, information in this document may materially change the coding, format and clinical context of patient data. In addition, data may be omitted in some cases. CLINICAL DECISIONS SHOULD BE BASED ON THE PRIMARY CLINICAL RECORDS. [employer] provides no warranty or guarantee of the accuracy or completeness of information in this document.
== END 2023-09-10 15:19 | disposition home or self-care (01) ==
LOC: US 15:18
PROVIDERS: PCP Family Medicine; Visit Provider Obstetrics & Gynecology
DX: N63.20 Unspecified lump in the left breast, unspecified quadrant (principal); N60.22 Fibroadenosis of left breast
CPT/HCPCS: 76642

== ENCOUNTER 2023-11-03 12:46 | Outpatient (OUT) | payer OTHER, SELFPAY ==
--- NOTE | 2023-11-03 | MM_ITS ---
Patient Name: MINNIE TURCIOS MR#: [id number] : 1995 Exam Date: 11/03/2023 Ordering Doctor: DR Saul Eugene . CORRECTION: UNDER THE FINDINGS THE LEFT AND RIGHT BREAST ARE SWITCHED. THE FINDINGS were changed to read: RIGHT BREAST: No significant suspicious finding LEFT BREAST: No significant suspicious finding. Llewellyn marker upper outer quadrant, anterior breast corresponding to the patient's palpable abnormality. No mammographic abnormality Corrected on: 11/06/2023; RADIOLOGY REPORT PROCEDURE: MM TOMOSYNTHESIS DIAGNOSTIC BI COMPARISON: US BREAST LT LIMITED, 09/10/2023. INDICATIONS: Mass of Left Breast Calculator Name NCI Breast Cancer Risk Assessment Tool 5 Year Breast Cancer Risk Not Applicable. Lifetime Breast Cancer Risk Not Applicable. Personal Breast Cancer No Personal Ovarian Cancer No Treatments None Family Cancers None LOCATION: [facility] BREAST COMPOSITION: There are scattered areas of fibroglandular density. FINDINGS: DIAGNOSTIC CATEGORY 1--NEGATIVE. Scattered benign-appearing lymph nodes are present. RIGHT BREAST: No significant suspicious finding LEFT BREAST: No significant suspicious finding. Llewellyn marker upper outer quadrant, anterior breast corresponding to the patient's palpable abnormality. No mammographic abnormality RECOMMENDATIONS: No mammographic or ultrasound abnormality to correspond to the patient's left breast mass. Further evaluation should be based on CLINICAL EVALUATION. PLEASE NOTE: A NORMAL MAMMOGRAM DOES NOT EXCLUDE THE POSSIBILITY OF BREAST CANCER. A CLINICALLY SUSPICIOUS PALPABLE LUMP SHOULD BE BIOPSIED. Dictated by: Farshad Fitzgerald MD on 11/03/2023 at 13:12 Approved by: Farshad Fitzgerald MD on 11/03/2023 at 13:17 Dictated by: Farshad Fitzgerald MD on 11/06/2023 at 10:34 Approved by: Farshad Fitzgerald MD on 11/06/2023 at 10:34
--- OUTSIDE RECORDS SUMMARY | 2023-11-03 12:53 | XMS_ITS | CCD ---
Author Organization [facility] Care Team Providers Care Ultra Sound Technician Name Role Phone Bakari Amezcua Unavailable Unavailable Sadiq, Michael L Unavailable Unavailable Kb Babcockberto L Unavailable Unavailable BAKARI AMEZCUA Unavailable Unavailable NO FAMILY DOCTOR, NO FAMILY DOCTOR Unavailable Unavailable CHELSI ZAPATACY Unavailable Unav ailable NO FAMILY DOCTOR, NO [...] Unavailable MIKE ., DR HO Attending Unavailable GUTIERREZ, DR HAL Varma Primary Care Unavailable MIKE [...] 09-04-2022 BASO # 0.0 103/ul Normal 0.0-0.1 [facility] Comment on above: Performed By: #### C BC #### [facility] [address] [address] [address] Jinny Palomino Basophils/100 WBC (Bld) 0.2 % Normal 0.2-2.0 [facility] Comment on above: Performed By: #### C BC #### [facility] [address] [address] [address] Jinny Palomino EO # 0.1 103/ul Normal 0.0-0.7 [facility] Comment on above: Performed By: #### C BC #### [facility] [address] [address] [address] Jinny Palomino Eosinophils/100 WBC (Bld) 1.9 % Normal 0.9-7.0 [facility] Comment on above: Performed By: #### C BC #### [facility] [address] [address] [address] Jinny Palomino Erythrocyte distribution width (RBC) [Ratio] 12.6 % Normal 11.0-15.0 [facility] Comment on above: Performed By: #### C BC #### [facility] [address] [address] [address] Jinny Palomino Hematocrit (Bld) [Volume fraction] 35.7 % Critically low 36.0-48.0 [facility] Comment on above: Performed By: #### C BC #### [facility] [address] [address] [address] Jinny Palomino Hemoglobin (Bld) [Mass/Vol] 12.3 g/dL Normal 12.0-16.0 [facility] Comment on above: Performed By: #### C BC #### [facility] [address] [place] [address] Dr. Jinny Palomino IG # 0.01 10e3/ul Normal 0.00-0.03 [facility] Comment on above: Performed By: #### C BC #### [facility] [address] [place] [address] Dr. Jinny Palomino IG % 0.2 % Normal 0.0-0.5 [facility] Comment on above: Performed By: #### C BC #### [facility] [address] [place] [address] Dr. Jinny Palomino LYMPH # 2.2 103/ul Normal 1.2-3.8 [facility] Comment on above: Performed By: #### C BC #### [facility] [address] [place] [address] Dr. Jinny Palomino Lymphocytes/100 WBC (Bld) 37.2 % Normal 20.5-60.0 [facility] Comment on above: Performed By: #### C BC #### [facility] [address] [place] [address] Dr. Jinny Palomino MANUAL DIFF REQ NO Normal [facility] Comment on above: Performed By: #### C BC #### [facility] [address] [place] [address] Dr. Jinny Palomino MCH (RBC) [Entitic mass] 29.1 pg Normal 26.7-34.0 [facility] Comment on above: Performed By: #### C BC #### [facility] [address] [place] [address] Dr. Jinny Palomino MCHC (RBC) [Mass/Vol] 34.5 g/dL Normal 29.9-35.2 [facility] Comment on above: Performed By: #### C BC #### [facility] [address] [place] [address] Dr. Jinny Palomino MCV (RBC) [Entitic vol] 84.6 fL Normal 81.0-99.0 [facility] Comment on above: Performed By: #### C BC #### [facility] [address] [place] [address] Dr. Jinny Palomino MONO # 0.6 103/ul Normal 0.3-0.8 [facility] Comment on above: Performed By: #### C BC #### [facility] [address] [place] [address] Dr. Jinny Palomino Monocytes/100 WBC (Bld) 9.9 % Normal 1.7-12.0 [facility] Comment on above: Performed By: #### C BC #### [facility] [address] [place] [address] Dr. Jinny Palomino NEUT # 3.0 103/ul Normal 1.4-6.5 [facility] Comment on above: Performed By: #### C BC #### [facility] [address] [place] [address] Dr. Jinny Palomino Neutrophils/100 WBC (Bld) 50.6 % Normal 43.0-75.0 [facility] Comment on above: Performed By: #### C BC #### [facility] [address] [place] [address] Dr. Jinny Palomino Platelet mean volume (Bld) [Entitic vol] 9.2 fL Critically low 9.5-13.5 [facility] Comment on above: Performed By: #### C BC #### [facility] [address] [place] [address] Dr. Jinny Palomino PLT 271 103/ul Normal 150-450 [facility] Comment on above: Performed By: #### C BC #### [facility] [address] [place] [address] Dr. Jinny Palomino RBC 4.22 106/ul Normal 4.20-5.40 [facility] Comment on above: Performed By: #### C BC #### [facility] [address] [place] [address] Dr. Jinny Palomino WBC 5.8 103/ul Normal 4.0-11.0 [facility] Comment on above: Performed By: #### C BC #### [facility] [address] [place] [address] Dr. Jinny Palomino FREE THYROXINE INDEX T7on FTI 2.87 Normal 1.30-4.50 [facility] Comment on above: Performed By: #### T SH, CMP, T7 #### [facility] [address] [place] [address] Dr. Jinny Palomino T3U 35.0 % Normal 30.0-39.0 [facility] Comment on above: Performed By: #### T SH, CMP, T7 #### [facility] [address] [place] [address] Dr. Jinny Palomino T4 [Mass/Vol] 8.20 ug/dL Normal 4.80-13.90 [facility] Comment on above: Performed By: #### T SH, CMP, T7 #### [facility] [address] [place] [address] Dr. Jinny Palomino PROF 14(COMP METB)on 023 Albumin [Mass/Vol] 3.8 g/dL Normal 3.4-5.0 [facility] Comment on above: Performed By: #### T SH, CMP, T7 #### [facility] [address] [place] [address] Dr. Jinny Palomino Albumin/Globulin [Mass ratio] 0.9 {ratio} Normal [facility] Comment on above: Performed By: #### T SH, CMP, T7 #### [facility] [address] [place] [address] Dr. Jinny Palomino ALP [Catalytic activity/Vol] 68 U/L Normal 46-116 [facility] Comment on above: Performed By: #### T SH, CMP, T7 #### [facility] [address] [place] [address] Dr. Jinny Palomino ALT [Catalytic activity/Vol] 34 U/L Normal 14-59 [facility] Comment on above: Performed By: #### T SH, CMP, T7 #### [facility] [address] [place] [address] Dr. Jinny Palomino Anion gap [Moles/Vol] 11.9 mmol/L Normal [facility] Comment on above: Performed By: #### T SH, CMP, T7 #### [facility] [address] [address] [address] Jinny Palomino AST [Catalytic activity/Vol] 16 U/L Normal 15-37 [facility] Comment on above: Performed By: #### T SH, CMP, T7 #### [facility] [address] [place] [address] Dr. Jinny Palomino Bilirubin [Mass/Vol] 0.2 mg/dL Normal 0.2-1.0 [facility] Comment on above: Performed By: #### T SH, CMP, T7 #### [facility] [address] [place] [address] Dr. Jinny Palomino Calcium [Mass/Vol] 9.3 mg/dL Normal 8.5-10.1 [facility] Comment on above: Performed By: #### T SH, CMP, T7 #### [facility] [address] [place] [address] Dr. Jinny Palomino Chloride [Moles/Vol] 104 mmol/L Normal 98-107 [facility] Comment on above: Performed By: #### T SH, CMP, T7 #### [facility] [address] [place] [address] Dr. Jinny Palomino CO2 [Moles/Vol] 24.7 mmol/L Normal 21.0-32.0 [facility] Comment on above: Performed By: #### T SH, CMP, T7 #### [facility] [address] [place] [address] Dr. Jinny Palomino Creatinine [Mass/Vol] 0.58 mg/dL Normal 0.55-1.02 [facility] Comment on above: Performed By: #### T SH, CMP, T7 #### [facility] [address] [place] [address] Dr. Jinny Palomino EGFR-AF SOMALI >60 Normal >=60 [facility] Comment on above: Performed By: #### T SH, CMP, T7 #### [facility] [address] [place] [address] Dr. Jinny Palomino EGFR-NON AF SOMALI >60 Normal >=60 [facility] Comment on above: Performed By: #### T LIV CMP, T7 #### [facility] [address] [place] [address] Dr. Jinny Palomino Globulin (S) [Mass/Vol] 4.0 g/dL Normal [facility] Comment on above: Performed By: #### T LIV CMP, T7 #### [facility] [address] [place] [address] Dr. Jinny Palomino Glucose [Mass/Vol] 88 mg/dL Normal 74-106 [facility] Comment on above: Performed By: #### T LIV CMP, T7 #### [facility] [address] [place] [address] Dr. Jinny Palomino Potassium [Moles/Vol] 3.6 mmol/L Normal 3.5-5.1 [facility] Comment on above: Performed By: #### T LIV CMP, T7 #### [facility] [address] [place] [address] Dr. Jinny Palomino Protein [Mass/Vol] 7.8 g/dL Normal 6.4-8.2 [facility] Comment on above: Performed By: #### T LIV CMP, T7 #### [facility] [address] [place] [address] Dr. Jinny Palomino Sodium [Moles/Vol] 137 mmol/L Normal 136-145 [facility] Comment on above: Performed By: #### T LIV CMP, T7 #### [facility] [address] [place] [address] Dr. Jinny Palomino Urea nitrogen [Mass/Vol] 10.0 mg/dL Normal 7.0-18.0 [facility] Comment on above: Performed By: #### T LIV CMP, T7 #### [facility] [address] [place] [address] Dr. Jinny Palomino Urea nitrogen/Creatinin e [Mass ratio] 17.2 mg/mg Normal [facility] Comment on above: Performed By: #### T LIV CMP, T7 #### [facility] [address] [place] [address] Dr. Jinny Palomino TSHon 09-04-2022 TSH 2.195 uIU/mL Normal 0.358-3.740 [facility] Comment on above: Performed By: #### T SH, CMP, T7 #### [facility] [address] [place] [address] Dr. Jinny Palomino VITAMIN D 25 OHon 09-04-2022 VIT D 25-OH 40.3 ng/mL Normal [facility] Comment on above: Performed By: #### V ITAD #### [facility] [address] [place] [address] Dr. Jinny Palomino VIT D RANGES SEE BELOW Normal [facility] Comment on above: Result Comment: <20 ng/mL Vit D deficient 20 - <30 ng/mL Vit D insufficient 30 - 100 ng/mL Vit D sufficient >100 ng/mL Potential Toxicity Performed By: #### V ITAD #### [facility] [address] [place] [address] Dr. Jinny Palomino GLYCOHEMOGLOBIN A1Con 2022 ADA RECOMMENDATION SEE BELOW Normal [facility] Comment on above: Result Comment: ADA RECOMMENDED LIMIT 4.0 - 6.0 ADA THERAPEUTIC TARGET < 7.0 ACTION SUGGESTED > 7.0 Performed By: #### D ATA1C #### [facility] [address] [place] [address] Dr. Jinny Palomino Glucose [Mass/Vol] 105 mg/dL Normal [facility] Comment on above: Performed By: #### D ATA1C #### [facility] [address] [place] [address] Dr. Jinny Palomino HbA1c (Bld) [Mass fraction] 5.3 % Normal 4.5-6.2 [facility] Comment on above: Performed By: #### D ATA1C #### [facility] [address] [place] [address] Dr. Jinny Palomino US Pelvic Complete w/Transva [...] by CELSO GONZALEZ on 06/18/2022 1404 Normal [facility] Assistant Media Buyer .Interpretation:on HCV Ab IA Ql Comment Invalid Interpretation Code [facility] Comment on above: Result Comment: Nega tive Not infected with HCV, unless recent infection is suspected or other evidence exists to indicate HCV infection. Performed at: [address] [id number] PhD Preet Blevins Performed By: #### 8 [id number], [id number], [id number], 0063954, [id number], [id number] ####[facility] [id number] [place] [address] HCV Antibody RFX to Quant PC José Luis 02-01-2022 HCV Ab Signal/Cutoff IA [Rel units/Vol] {ratio} Invalid Interpretation Code 0.0-0.9 [facility] Comment on above: Result Comment: Perf ormed at: [address] [id number] PhD Preet Blevins Performed By: #### 8 [id number], [id number], [id number], [id number], [id number], [id number] ####[facility] [id number] [place] [address] Hep Bs Abon 02-01-2022 HBV surface Ab Ql (S) Reactive Invalid Interpretation Code [facility] Comment on above: Result Comment: Non Reactive: Inconsistent with immunity, less than 10 mIU/mL Reactive: Consistent with immunity, greater than 9.9 mIU/mL Performed at: [address] [id number] PhD Preet Blevins Performed By: #### 8 [id number], [id number], [id number], 8969630, [id number], [id number] #### [facility] [address] [place] [address] Hep Bs Agon 02-01-2022 HBV surface Ag IA Ql Negative Invalid Interpretation Code Negative [facility] Comment on above: Result Comment: Perf ormed at: [facility] [address] [place], [place] [id number] PhD Preet Blevins Performed By: #### 8 [id number], [id number], [id number], 0836470, [id number], [id number] ####[facility] [address] [place] [address] Jhony 01-30-2022 ALT No additional P-5'-P [Catalytic activity/Vol] 16 Int._Unit/L Normal 6-46 [facility] Comment on above: Performed By: #### 8 [id number], [id number], 6684921, 9885784, [id number], [id number] #### [facility] [address] [place] [address] Consent for Treatmenton 090 Consent for Treatment [id number]#1.00CD:12 7 Normal [facility] HIV-1/2 Ag/Ab Comboon 2021 HIV 1+2 Ab and HIV1 p24 Ag IA.rapid Nom (S/P/Bld) Negative Normal Negative [facility] Comment on above: Performed By: #### 8 [id number], [id number], 6037644, 7513621, [id number], [id number] #### [facility] [address] [place] [address] HIV 1+2 Ab+HIV1 p24 Ag IA Ql Non-Reactive Normal Non-Reactive [facility] Comment on above: Performed By: #### 8 [id number], [id number], 0184299, 2903845, [id number], [id number] #### [facility] [address] [place] [address] HIV Combo Internal Control Line Reactive Normal Reactive [facility] Comment on above: Performed By: #### 8 [id number], [id number], 3269322, 4805392, [id number], [id number] #### [facility] [address] [place] [address] HIV-1/2 Ag/Ab Combo Negative for HIV-1 and/or HIV-2 antibodies and HIV-1 p24 antigen. Normal Negative [facility] Physician Orderon 01-30-2022 Physician Order [id number]#1.00CD:1 27 Normal [facility] PAP ACOG PANEL 2: 21 to 29on 12-29-2021 . . Normal [facility] Comment on above: Performed By: #### 4 [id number] #### [facility] [address] [place] [address] Dr. Jinny Palomino Age Gdln ACOG Testing 21- [facility] Comment on above: Performed By: #### 4 [id number] #### [facility] [address] [place] [address] Dr. Jinny Palomino DIAGNOSIS: Comment [facility] Comment on above: Result Comment: NEGA TIVE FOR INTRAEPITHELIAL LESION OR MALIGNANCY. Performed By: #### 4 [id number] #### [facility] [address] [place] [address] Dr. Jinny Palomino Methodology: Comment [facility] Comment on above: Result Comment: This liquid based ThinPrep(R) pap test was screened with the use of an image guided system. Performed By: #### 4 [id number] #### [facility] [address] [place] [address] Dr. Jinny Palomino Note: Comment [facility] Comment on above: Result Comment: The Pap smear is a screening test designed to aid in the detection of premalignant and malignant conditions of the uterine cervix. It is not a diagnostic procedure and should not be used as the sole means of detecting cervical cancer. Both false-positive and false-negative reports do occur. . Performed By: #### 4 [id number] #### [facility] [address] [place] [address] Dr. Jinny Palomino Performed by: Comment Normal [facility] Comment on above: Result Comment: Allison Coyle, Manager Qa (ASCP) Performed By: #### 4 [id number] #### [facility] [address] [place] [address] Dr. Jinny Palomino Reflex Criteria: Comment Normal [facility] Comment on above: Result Comment: The HPV DNA reflex criteria were not met with this specimen result therefore, no HPV testing was performed. . Performed By: #### 4 [id number] #### [facility] [address] [place] [address] Dr. Jinny Palomino Specimen adequacy: Comment Normal [facility] Comment on above: Result Comment: Sati sfactory for evaluation. Endocervical and/or squamous metaplastic cells (endocervical component) are present. Performed By: #### 4 [id number] #### [facility] [address] [place] [address] Dr. Jinny Palomino CHLAMYDIA/GONOCOCCUS RANDALL (SW AB/URINE/PAPon 12-28-2021 Chlamydia trachomatis, RANDALL Negative Normal Negative [facility] Comment on above: Performed By: #### C T/NGNA #### [facility] [address] [place] [address] Dr. Jinny Palomino Neisseria gonorrhoeae, RANDALL Negative Normal Negative [facility] Comment on above: Performed By: #### C T/NGNA #### [facility] [address] [place] [address] Dr. Jinny Palomino VAGINITIS/VAGINOSIS DNA PROB Prosper 12-27-2021 [place] species Negative Normal Negative [facility] Comment on above: Performed By: #### V AGINT #### [facility] [address] [place] [address] Dr. Jinny Palomino Gardnerella vaginalis Negative Normal Negative [facility] Comment on above: Performed By: #### V AGINT #### [facility] [address] [address] [address] Jinny Palomino Trichomonas vaginalis Negative Normal Negative [facility] Comment on above: Performed By: #### V AGINT #### [facility] [address] [place], [place] [address] Dr. Jinny Palomino Hep Bs Abon 2021 HBV surface Ab Ql (S) Reactive Invalid Interpretation Code [facility] Comment on above: Result Comment: Non Reactive: Inconsistent with immunity, less than 10 mIU/mL Reactive: Consistent with immunity, greater than 9.9 mIU/mL Performed at: [address] [id number] PhD Preet Blevins Performed By: #### 1 [id number], [id number], 5846116, [id number] #### [facility] [address] [id number] Measles/Mumps/Rubella Immuni tyon 2021 MeV IgG IA Qn (S) 59.4 A unit/mL Invalid Interpretation Code Immune >16.4 [facility] Comment on above: Result Comment: Nega tive <13.5 Equivocal 13.5 - 16.4 Positive >16.4 Presence of antibodies to Rubeola is presumptive evidence of immunity except when acute infection is suspected. Performed By: #### 1 [id number], [id number], 4987272, [id number] #### [facility] [address] [id number] MuV IgG IA Qn (S) 52.4 A unit/mL Invalid Interpretation Code Immune >10.9 [facility] Comment on above: Result Comment: Nega tive <9.0 Equivocal 9.0 - 10.9 Positive >10.9 A positive result generally indicates past exposure to Mumps virus or previous vaccination. Performed at: [facility] [address] [place] [address] [id number] PhD Preet Blevins Performed By: #### 1 [id number], [id number], 9301152, [id number] #### [facility] [address] [place] [address] Rubella virus IgG Qn (S) [IU]/mL Low Immune >0.99 [facility] Comment on above: Result Comment: Non- immune <0.90 Equivocal 0.90 - 0.99 Immune >0.99 Performed By: #### 1 [id number], [id number], 4220396, [id number] #### [facility] [address] [place], [place] [id number] Quantiferon-TB Plus (Client Incubated)on 2021 Gamma interferon background IA Qn (Bld) 0.03 International_Unit/mL Invalid Interpretation Code [facility] Comment on above: Performed By: #### 1 [id number], [id number], 8643428, [id number] #### [facility] [address] [place] [address] M. tuberculosis stim IFN-g by CD4+ CD8+ T-cells corrected for background Qn (Bld) 0.06 International_Unit/mL Invalid Interpretation Code [facility] Comment on above: Performed By: #### 1 7812995, 206843556, 8747372, [id number] #### [facility] [address] [place], [place] [address] M. tuberculosis stim IFN-g by CD4+ T-cells corrected for background Qn (Bld) 0.04 International_Unit/mL Invalid Interpretation Code [facility] Comment on above: Performed By: #### 1 [id number], 262990930, 0675258, [id number] #### [facility] [address] [place] [address] M. tuberculosis stim IFN-g Ql (Bld) [Interp] Negative Invalid Interpretation Code Negative [facility] Comment on above: Result Comment: The specimen received for QuantiFERON testing was incubated by the ordering institution. Specific procedures outlined in our Directory of Services and in the package insert for the QuantiFERON Gold (In Tube) test must be followed to enable for proper stimulation of cells for the production of interferon gamma. Chemiluminescence immunoassay methodology Performed at: [facility] [address] [place], [place] [id number] PhD Preet Blevins Performed By: #### 1 [id number], [id number], 8656336, [id number] #### [facility] [address] [place] [address] Mitogen stimulated gamma interferon Qn (Bld) >10.00 Invalid Interpretation Code [facility] Comment on above: Performed By: #### 1 [id number], [id number], 8429404, [id number] #### [facility] [address] [place] [address] Service comment (Unsp spec) [Interp] Comment Invalid Interpretation Code [facility] Comment on above: Result Comment: The QuantiFERON-TB Gold Plus result is determined by subtracting the Nil value from either TB antigen (Ag) tube. The mitogen tube serves as a control for the test. Performed By: #### 1 [id number], [id number], 0737506, [id number] #### [facility] [address] [place] [address] Varic IgGon 2021 VZV IgG IA Qn (S) 236 Invalid Interpretation Code Immune >165 [facility] Comment on above: Result Comment: Nega tive <135 Equivocal 135 - 165 Positive >165 A positive result generally indicates exposure to the pathogen or administration of specific immunoglobulins, but it is not indication of active infection or stage of disease. Performed at: [facility] [address] [place], [place] [id number] PhD Preet Blevins Performed By: #### 1 [id number], [id number], 3730204, [id number] #### [facility] [address] [place] [address] Consent for Treatmenton 07-24 Consent for Treatment [id number]#[id number]:12 7 Normal [facility] Physician Orderon 08-03-2021 Physician Order [id number]#1.00CD:1 27 Normal [facility] Pneumococcal Abs, IgG (23 Se rotypes)on 01-15-2018 Pneumo Serotyp 10A, IgG (PNX) 16.60 ug/mL Normal [facility] Comment on above: Performed By: #### P NEM2 ####[id number] [place] [address] Pneumo Serotyp 11A, IgG (PNX) 8.89 ug/mL Normal [facility] Comment on above: Performed By: #### P NEM2 ####[id number] [place] [address] Pneumo Serotyp 12F, IgG (PNX) 3.13 ug/mL Normal [facility] Comment on above: Performed By: #### P NEM2 ####[id number] [place] [address] Pneumo Serotyp 15B, IgG (PNX) 27.97 ug/mL [facility] Comment on above: Performed By: #### P NEM2 ####[id number] [place] [address] Pneumo Serotyp 17F, IgG (PNX) 18.01 ug/mL Normal [facility] Comment on above: Performed By: #### P NEM2 ####[id number] [place] [address] Pneumo Serotyp 18C, IgG (P7,P13,PNX) 3.28 ug/mL Normal [facility] Comment on above: Performed By: #### P NEM2 ####[id number] [place] [address] Pneumo Serotyp 19A, IgG (P13,PNX) 5.63 ug/mL Normal [facility] Comment on above: Performed By: #### P NEM2 ####[id number] [place] [address] Pneumo Serotyp 19F, IgG (P7,P13,PNX) 0.73 ug/mL Normal [facility] Comment on above: Performed By: #### P NEM2 ####[id number] [place] [address] Pneumo Serotyp 2, IgG (PNX) 13.09 ug/mL Normal [facility] Comment on above: Performed By: #### P NEM2 ####[id number] [place] [address] Pneumo Serotyp 20, IgG (PNX) 4.93 ug/mL Normal [facility] Comment on above: Performed By: #### P NEM2 ####[id number] [place] [address] Pneumo Serotyp 22F, IgG (PNX) 1.92 ug/mL Normal [facility] Comment on above: Performed By: #### P NEM2 ####[id number] [place] [address] Pneumo Serotyp 23F, IgG (P7,P13,PNX) 2.05 ug/mL Normal [facility] Comment on above: Performed By: #### P NEM2 ####[id number] [place] [address] Pneumo Serotyp 33F, IgG (PNX) 2.40 ug/mL Normal [facility] Comment on above: Performed By: #### P NEM2 ####[id number] [place] [address] Pneumo Serotype 1, IgG (P13,PNX) 10.98 ug/mL Normal [facility] Comment on above: Performed By: #### P NEM2 ####[id number] [place] [address] Pneumo Serotype 14, IgG (P7,P13,PNX) 1.63 ug/mL Normal [facility] Comment on above: Performed By: #### P NEM2 ####[id number] [place] [address] Pneumo Serotype 3, IgG (P13,PNX) 2.46 ug/mL Normal [facility] Comment on above: Performed By: #### P NEM2 ####[id number] [place] [address] Pneumo Serotype 4, IgG (P7,P13,PNX) 4.97 ug/mL Normal [facility] Comment on above: Performed By: #### P NEM2 ####[id number] [place] [address] Pneumo Serotype 5, IgG (P13,PNX) 6.58 ug/mL Normal [facility] Comment on above: Performed By: #### P NEM2 ####[id number] [place] [address] Pneumo Serotype 6B, IgG (P7,P13,PNX) 0.37 ug/mL Normal [facility] Comment on above: Performed By: #### P NEM2 ####[id number] [place] [address] Pneumo Serotype 7F, IgG (P13,PNX) 14.71 ug/mL Normal [facility] Comment on above: Performed By: #### P NEM2 ####[id number] [place] [address] Pneumo Serotype 8, IgG (PNX) 7.28 ug/mL Normal [facility] Comment on above: Performed By: #### P NEM2 ####[id number] [place] [address] Pneumo Serotype 9N, IgG (PNX) 1.94 ug/mL Normal [facility] Comment on above: Performed By: #### P NEM2 ####[id number] [place] [address] Pneumo Serotype 9V, IgG (P7,P13,PNX) 2.30 ug/mL Normal [facility] Comment on above: Performed By: #### P NEM2 ####[id number] [place] [address] Pneumo Serotype Interp See Note Normal [facility] Comment on above: Result Comment: INTE [...] Vaccine Immunol.2015;22(2):148-152.Test developed and characteristics determined by [facility]. See Compliance Statement B: [employer]/CSPerformed by [employer],[address] [place] [address] xpp.[employer], Vishnu Queen MD - Lab. Director Performed By: #### P NEM2 ####[id number] [place] [address] Complement Act, Totalon 07-0 Complement Act, Total 137 Units Normal 60-144 [facility] Comment on above: Result Comment: INTE RPRETIVE INFORMATION: Complement Activity, Total EIA59 Units or less .......... Aum98-145 Units .............. Mhbxgx205 Units or greater ....... HighPerformed by [employer],[address] [facility],[place] [id number] www.[employer], Vishnu Queen MD - Lab. Director Performed By: #### 1 [id number] ####[id number] [place] [address] Diphtheria/Tetanus IgGon Diptheria Ab, IgG 4.8 IU/mL Normal [facility] Comment on above: Result Comment: INTE RPRETIVE [...] usually adequate.Test developed and characteristics determined by [facility]. See Compliance Statement B: [employer]/CS Performed By: #### 0 [id number] ####[id number] [place] [address] Tetanus Ab, IgG 5.2 IU/mL Normal [facility] Comment on above: Result Comment: INTE RPRETIVE [...] is usuallyadequate.Test developed and characteristics determined by [facility]. See Compliance Statement B: [employer]/CSPerformed by [employer],[address] [place] [address] zun.[employer], Vishnu Queen MD - Lab. Director Performed By: #### 0 [id number] ####[id number] [place] [address] H. Influenzae B, IgGon 11-25 H. Influenzae B, IgG 4.1 ug/mL Normal [facility] Comment on above: Result Comment: INTE RPRETIVE [...] a non-responder.Test developed and characteristics determined by [facility]. See Compliance Statement B: [employer]/CSPerformed by [employer],[address] [place] [address] btj.[employer], Vishnu Queen MD - Lab. Director Performed By: #### 0 [id number] ####[id number] [place] [address] IgG Subclasseson 11-25-2017 IgG mass conc 1130 mg/dL Normal 700-1600 [facility] Comment on above: Result Comment: MONO CLONAL PROTEINS MAY CAUSE FALSELY LOWRESULTS IN THIS ASSAY. SERUM PROTEINELECTROPHORESIS SHOULD BE DONE THEFIRST TEST TO EVALUATE MONOCLONAL GAMMOPATHY. IgG Subclass 1 841 mg/dL Normal 490-1140 [facility] IgG Subclass 2 288 mg/dL Normal 150-640 [facility] IgG Subclass 3 55 mg/dL Normal 11-85 [facility] IgG Subclass 4 10 mg/dL Normal 3-200 [facility] Comment on above: Result Comment: DUE TO INHERENT IMPRECISION OF METHODS, THESUM OF COMPONENTS MAY DIFFER FROM TOTAL IGGBY MUCH 20%. Immunoglobulin Qnt (IgA, IgG , IgM)on 11-25-2017 IgA mass conc 241 mg/dL Normal 70-400 [facility] Comment on above: Result Comment: MONO CLONAL PROTEINS MAY CAUSE FALSELY LOWRESULTS IN THIS ASSAY. SERUM PROTEINELECTROPHORESIS SHOULD BE DONE THEFIRST TEST TO EVALUATE MONOCLONAL GAMMOPATHY. IgM mass conc 60 mg/dL Normal 40-230 [facility] Comment on above: Result Comment: MONO CLONAL [...] 11/25/2017 3:23:22 PM Vitals Vital Signs Recorded: [id number] 03:18NCYrvqfq5 ft 2 aeZzewft496 lb BMI Wfjzaflpqd14.61BSA Calculated1.64 Physical ExamGeneral appearance: No acute distress. [...] Nov 25 2017 6:08PM EST (Author) [facility] Pneum[facility] Abs, IgG (23 Se rotypes)on 11-25-2017 Pneumo Serotyp 10A, IgG (PNX) 3.18 ug/mL Normal [facility] Comment on above: Performed By: #### P NEM2 ####[id number] [place] [address] Pneumo Serotyp 11A, IgG (PNX) 1.78 ug/mL Normal [facility] Comment on above: Performed By: #### P NEM2 ####[id number] [place] [address] Pneumo Serotyp 12F, IgG (PNX) 0.25 ug/mL Normal [facility] Comment on above: Performed By: #### P NEM2 ####[id number] [place] [address] Pneumo Serotyp 15B, IgG (PNX) 4.19 ug/mL Normal [facility] Comment on above: Performed By: #### P NEM2 ####[id number] [place] [address] Pneumo Serotyp 17F, IgG (PNX) 3.99 ug/mL Normal [facility] Comment on above: Performed By: #### P NEM2 ####[id number] [place] [address] Pneumo Serotyp 18C, IgG (P7,P13,PNX) 0.08 ug/mL Normal [facility] Comment on above: Performed By: #### P NEM2 ####[id number] [place] [address] Pneumo Serotyp 19A, IgG (P13,PNX) 1.98 ug/mL Normal [facility] Comment on above: Performed By: #### P NEM2 ####[id number] [place] [address] Pneumo Serotyp 19F, IgG (P7,P13,PNX) 0.27 ug/mL Normal [facility] Comment on above: Performed By: #### P NEM2 ####[id number] [place] [address] Pneumo Serotyp 2, IgG (PNX) 6.07 ug/mL Normal [facility] Comment on above: Performed By: #### P NEM2 ####[id number] [place] [address] Pneumo Serotyp 20, IgG (PNX) 1.46 ug/mL Normal [facility] Comment on above: Performed By: #### P NEM2 ####[id number] [place] [address] Pneumo Serotyp 22F, IgG (PNX) 0.12 ug/mL Normal [facility] Comment on above: Performed By: #### P NEM2 ####[id number] [place] [address] Pneumo Serotyp 23F, IgG (P7,P13,PNX) 0.27 ug/mL Normal [facility] Comment on above: Performed By: #### P NEM2 ####[id number] [place] [address] Pneumo Serotyp 33F, IgG (PNX) 1.01 ug/mL Normal [facility] Comment on above: Performed By: #### P NEM2 ####[id number] [place] [address] Pneumo Serotype 1, IgG (P13,PNX) 0.07 ug/mL Normal [facility] Comment on above: Performed By: #### P NEM2 ####[id number] [place] [address] Pneumo Serotype 14, IgG (P7,P13,PNX) 0.16 ug/mL Normal [facility] Comment on above: Performed By: #### P NEM2 ####[id number] [place] [address] Pneumo Serotype 3, IgG (P13,PNX) 0.71 ug/mL [facility] Comment on above: Performed By: #### P NEM2 ####[id number] [place] [address] Pneumo Serotype 4, IgG (P7,P13,PNX) 0.41 ug/mL Normal [facility] Comment on above: Performed By: #### P NEM2 ####[id number] [place] [address] Pneumo Serotype 5, IgG (P13,PNX) 1.93 ug/mL Normal [facility] Comment on above: Performed By: #### P NEM2 ####[id number] [place] [address] Pneumo Serotype 6B, IgG (P7,P13,PNX) 0.23 ug/mL [facility] Comment on above: Performed By: #### P NEM2 ####[id number] [place] [address] Pneumo Serotype 7F, IgG (P13,PNX) 0.82 ug/mL Normal [facility] Comment on above: Performed By: #### P NEM2 ####[id number] [place] [address] Pneumo Serotype 8, IgG (PNX) 0.37 ug/mL Normal [facility] Comment on above: Performed By: #### P NEM2 ####[id number] [place] [address] Pneumo Serotype 9N, IgG (PNX) 0.30 ug/mL Normal [facility] Comment on above: Performed By: #### P NEM2 ####[id number] [place] [address] Pneumo Serotype 9V, IgG (P7,P13,PNX) 0.05 ug/mL Normal [facility] Comment on above: Performed By: #### P NEM2 ####[id number] [place] [address] Pneumo Serotype Interp See Note Normal [facility] [...] Vaccine Immunol.2015;22(2):148-152.Test developed and characteristics determined by [facility]. See Compliance Statement B: [employer]/CSPerformed by [employer],[address] [place] [address] qte.[employer], Vishnu Queen MD - Lab. Director Performed By: #### P NEM2 ####[id number] [place] [address] Encounters Encounter Date Encounter Type Care Provider Facility Start: 09-09-2022 Encounter for genera l adult medical examination without abnormal findings DR SABRINA RAMIREZ . [facility] Start: 09-04-2022 End: 09-05-[address] SABRINA RAMIREZ . Facility:[facility] Start: 09-04-2022 End: 09-05-2022 Encounter for general adult medical examination without abnormal findings DR SABRINA RAMIREZ . Facility:[facility] Start: 08-22-2022 End: 08-23-[address] SABRINA RAMIREZ . Facility:[facility] Start: 12-25-2021 End: 12-25-[address] VIC MCKEON . Facility:[facility] Start: 01-15-2018 Patient encounter DELMY ASHLEY NITHYA LITTLE CHUTE Facility:[facility] Start: 11-25-2017 Patient encounter BAKARI AMEZCUA Jimena y:[facility] Start: 11-25-2017 Ambulatory Bakari Amezcua Facility :9242 Payers Date Payer Category Payer Unknown [id number] 1995 Unknown [id number] 2.16.84 [id number] 1995 Unknown [id number] 2.16.84 [id number] 1959 Private Health Insurance [id number] 1959 Self-pay Unknown [id number] Unknown [id number] 2.16.84 [id number] Unknown [id number] Summary Purpose Family History No Family History [...] section and content) DATE CREATED AUTHOR 11/25/2017 [facility] DATE CREATED AUTHOR AUTHOR'S ORGANIZ ATION 12/02/2017 [facility] DATE CREATED AUTHOR AUTHOR'S ORGANIZ ATION 02/16/2018 [facility] DATE CREATED AUTHOR AUTHOR'S ORGANIZ ATION 02/01/2022 Ilir Wallace [facility] DATE CREATED AUTHOR AUTHOR'S ORGANIZ ATION 06/19/2022 [facility] dical Specialist DATE CREATED AUTHOR AUTHOR'S [...] BE BASED ON THE PRIMARY CLINICAL RECORDS. [employer] provides no warranty or guarantee of the accuracy or completeness of information in this document.
== END 2023-11-03 12:47 | disposition home or self-care (01) ==
LOC: MAMMO 12:47
PROVIDERS: PCP Family Medicine; Visit Provider Obstetrics & Gynecology
DX: N63.21 Unspecified lump in the left breast, upper outer quadrant (principal)
CPT/HCPCS: 77066; G0279

== ENCOUNTER 2024-02-23 21:37 | Outpatient (REF) | payer OTHER, SELFPAY ==
--- OUTSIDE RECORDS SUMMARY | 2024-02-23 21:41 | XMS_ITS | CCD ---
Author Organization [facility] Care Team Providers Care Commercial Management Accountant Name Role Phone Bakari Amezcua Unavailable Unavailable [...] 09-04-2022 BASO # 0.0 103/ul Normal 0.0-0.1 [facility] Comment on above: Performed By: #### C BC #### [facility] [address] [address] [address] Jinny Palomino Basophils/100 WBC (Bld) 0.2 % Normal 0.2-2.0 [facility] Comment on above: Performed By: #### C BC #### [facility] [address] [address] [address] Jinny Palomino EO # 0.1 103/ul Normal 0.0-0.7 [facility] Comment on above: Performed By: #### C BC #### [facility] [address] [address] [address] Jinny Palomino Eosinophils/100 WBC (Bld) 1.9 % Normal 0.9-7.0 [facility] Comment on above: Performed By: #### C BC #### [facility] [address] [address] [address] Jinny Palomino Erythrocyte distribution width (RBC) [Ratio] 12.6 % Normal 11.0-15.0 [facility] Comment on above: Performed By: #### C BC #### [facility] [address] [address] [address] Jinny Palomino Hematocrit (Bld) [Volume fraction] 35.7 % Critically low 36.0-48.0 [facility] Comment on above: Performed By: #### C BC #### [facility] [address] [address] [address] Jinny Palomino Hemoglobin (Bld) [Mass/Vol] 12.3 g/dL Normal 12.0-16.0 [facility] Comment on above: Performed By: #### C BC #### [facility] [address] [place] [address] Dr. Jinny Palomino IG # 0.01 10e3/ul Normal 0.00-0.03 [facility] Comment on above: Performed By: #### C BC #### [facility] [address] [place] [address] Dr. Jinny Palomino IG % 0.2 % Normal 0.0-0.5 [facility] Comment on above: Performed By: #### C BC #### [facility] [address] [place] [address] Dr. Jinny Palomino LYMPH # 2.2 103/ul Normal 1.2-3.8 [facility] Comment on above: Performed By: #### C BC #### [facility] [address] [place] [address] Dr. Jinny Palomino Lymphocytes/100 WBC (Bld) 37.2 % Normal 20.5-60.0 [facility] Comment on above: Performed By: #### C BC #### [facility] [address] [place] [address] Dr. Jinny Palomino MANUAL DIFF REQ NO Normal [facility] Comment on above: Performed By: #### C BC #### [facility] [address] [place] [address] Dr. Jinny Palomino MCH (RBC) [Entitic mass] 29.1 pg Normal 26.7-34.0 [facility] Comment on above: Performed By: #### C BC #### [facility] [address] [place] [address] Dr. Jinny Palomino MCHC (RBC) [Mass/Vol] 34.5 g/dL Normal 29.9-35.2 [facility] Comment on above: Performed By: #### C BC #### [facility] [address] [place] [address] Dr. Jinny Palomino MCV (RBC) [Entitic vol] 84.6 fL Normal 81.0-99.0 [facility] Comment on above: Performed By: #### C BC #### [facility] [address] [place] [address] Dr. Jinny Palomino MONO # 0.6 103/ul Normal 0.3-0.8 [facility] Comment on above: Performed By: #### C BC #### [facility] [address] [place] [address] Dr. Jinny Palomino Monocytes/100 WBC (Bld) 9.9 % Normal 1.7-12.0 [facility] Comment on above: Performed By: #### C BC #### [facility] [address] [place] [address] Dr. Jinny Palomino NEUT # 3.0 103/ul Normal 1.4-6.5 [facility] Comment on above: Performed By: #### C BC #### [facility] [address] [place] [address] Dr. Jinny Palomino Neutrophils/100 WBC (Bld) 50.6 % Normal 43.0-75.0 [facility] Comment on above: Performed By: #### C BC #### [facility] [address] [place] [address] Dr. Jinny Palomino Platelet mean volume (Bld) [Entitic vol] 9.2 fL Critically low 9.5-13.5 [facility] Comment on above: Performed By: #### C BC #### [facility] [address] [place] [address] Dr. Jinny Palomino PLT 271 103/ul Normal 150-450 [facility] Comment on above: Performed By: #### C BC #### [facility] [address] [place] [address] Dr. Jinny Palomino RBC 4.22 106/ul Normal 4.20-5.40 [facility] Comment on above: Performed By: #### C BC #### [facility] [address] [place] [address] Dr. Jinny Palomino WBC 5.8 103/ul Normal 4.0-11.0 [facility] Comment on above: Performed By: #### C BC #### [facility] [address] [place] [address] Dr. Jinny Palomino FREE THYROXINE INDEX T7on FTI 2.87 Normal 1.30-4.50 [facility] Comment on above: Performed By: #### T SH, CMP, T7 #### [facility] [address] [place] [address] Dr. Jinny Palomino T3U 35.0 % Normal 30.0-39.0 [facility] Comment on above: Performed By: #### T SH, CMP, T7 #### [facility] [address] [place] [address] Dr. Jinny Palomino T4 [Mass/Vol] 8.20 ug/dL Normal 4.80-13.90 [facility] Comment on above: Performed By: #### T SH, CMP, T7 #### [facility] [address] [place] [address] Dr. Jinny Palomino PROF 14(COMP METB)on 023 Albumin [Mass/Vol] 3.8 g/dL Normal 3.4-5.0 [facility] Comment on above: Performed By: #### T SH, CMP, T7 #### [facility] [address] [place] [address] Dr. Jinny Palomino Albumin/Globulin [Mass ratio] 0.9 {ratio} Normal [facility] Comment on above: Performed By: #### T SH, CMP, T7 #### [facility] [address] [place] [address] Dr. Jinny Palomino ALP [Catalytic activity/Vol] 68 U/L Normal 46-116 [facility] Comment on above: Performed By: #### T SH, CMP, T7 #### [facility] [address] [place] [address] Dr. Jinny Palomino ALT [Catalytic activity/Vol] 34 U/L Normal 14-59 [facility] Comment on above: Performed By: #### T SH, CMP, T7 #### [facility] [address] [place] [address] Dr. Jinny Palomino Anion gap [Moles/Vol] 11.9 mmol/L Normal [facility] Comment on above: Performed By: #### T SH, CMP, T7 #### [facility] [address] [address] [address] Jinny Palomino AST [Catalytic activity/Vol] 16 U/L Normal 15-37 [facility] Comment on above: Performed By: #### T SH, CMP, T7 #### [facility] [address] [place] [address] Dr. Jinny Palomino Bilirubin [Mass/Vol] 0.2 mg/dL Normal 0.2-1.0 [facility] Comment on above: Performed By: #### T SH, CMP, T7 #### [facility] [address] [place] [address] Dr. Jinny Palomino Calcium [Mass/Vol] 9.3 mg/dL Normal 8.5-10.1 [facility] Comment on above: Performed By: #### T SH, CMP, T7 #### [facility] [address] [place] [address] Dr. Jinny Palomino Chloride [Moles/Vol] 104 mmol/L Normal 98-107 [facility] Comment on above: Performed By: #### T SH, CMP, T7 #### [facility] [address] [place] [address] Dr. Jinny Palomino CO2 [Moles/Vol] 24.7 mmol/L Normal 21.0-32.0 [facility] Comment on above: Performed By: #### T SH, CMP, T7 #### [facility] [address] [place] [address] Dr. Jinny Palomino Creatinine [Mass/Vol] 0.58 mg/dL Normal 0.55-1.02 [facility] Comment on above: Performed By: #### T SH, CMP, T7 #### [facility] [address] [place] [address] Dr. Jinny Palomino EGFR-AF AZERBAIJANI >60 Normal >=60 [facility] Comment on above: Performed By: #### T SH, CMP, T7 #### [facility] [address] [place] [address] Dr. Jinny Palomino EGFR-NON AF AZERBAIJANI >60 Normal >=60 [facility] Comment on above: Performed By: #### T LIV CMP, T7 #### [facility] [address] [place] [address] Dr. Jinny Palomino Globulin (S) [Mass/Vol] 4.0 g/dL Normal [facility] Comment on above: Performed By: #### T LIV CMP, T7 #### [facility] [address] [place] [address] Dr. Jinny Palomino Glucose [Mass/Vol] 88 mg/dL Normal 74-106 [facility] Comment on above: Performed By: #### T LIV CMP, T7 #### [facility] [address] [place] [address] Dr. Jinny Palomino Potassium [Moles/Vol] 3.6 mmol/L Normal 3.5-5.1 [facility] Comment on above: Performed By: #### T LVI CMP, T7 #### [facility] [address] [place] [address] Dr. Jinny Palomino Protein [Mass/Vol] 7.8 g/dL Normal 6.4-8.2 [facility] Comment on above: Performed By: #### T LIV CMP, T7 #### [facility] [address] [place] [address] Dr. Jinny Palomino Sodium [Moles/Vol] 137 mmol/L Normal 136-145 [facility] Comment on above: Performed By: #### T LIV CMP, T7 #### [facility] [address] [place] [address] Dr. Jinny Palomino Urea nitrogen [Mass/Vol] 10.0 mg/dL Normal 7.0-18.0 [facility] Comment on above: Performed By: #### T LIV CMP, T7 #### [facility] [address] [place] [address] Dr. Jinny Palomino Urea nitrogen/Creatinin e [Mass ratio] 17.2 mg/mg Normal [facility] Comment on above: Performed By: #### T LIV CMP, T7 #### [facility] [address] [place] [address] Dr. Jinny Palomino TSHon 09-04-2022 TSH 2.195 uIU/mL Normal 0.358-3.740 [facility] Comment on above: Performed By: #### T SH, CMP, T7 #### [facility] [address] [place] [address] Dr. Jinny Palomino VITAMIN D 25 OHon 09-04-2022 VIT D 25-OH 40.3 ng/mL Normal [facility] Comment on above: Performed By: #### V ITAD #### [facility] [address] [place] [address] Dr. Jinny Palomino VIT D RANGES SEE BELOW Normal [facility] Comment on above: Result Comment: <20 ng/mL Vit D deficient 20 - <30 ng/mL Vit D insufficient 30 - 100 ng/mL Vit D sufficient >100 ng/mL Potential Toxicity Performed By: #### V ITAD #### [facility] [address] [place] [address] Dr. Jinny Palomino GLYCOHEMOGLOBIN A1Con 2022 ADA RECOMMENDATION SEE BELOW Normal [facility] Comment on above: Result Comment: ADA RECOMMENDED LIMIT 4.0 - 6.0 ADA THERAPEUTIC TARGET < 7.0 ACTION SUGGESTED > 7.0 Performed By: #### D ATA1C #### [facility] [address] [place] [address] Dr. Jinny Palomino Glucose [Mass/Vol] 105 mg/dL Normal [facility] Comment on above: Performed By: #### D ATA1C #### [facility] [address] [place] [address] Dr. Jinny Palomino HbA1c (Bld) [Mass fraction] 5.3 % Normal 4.5-6.2 [facility] Comment on above: Performed By: #### D ATA1C #### [facility] [address] [place] [address] Dr. Jinny Palomino US Pelvic Complete w/Transva [...] by CELSO GONZALEZ on 06/18/2022 1404 Normal [facility] Inspector Repairer [place] .Interpretation:on HCV Ab IA Ql Comment Invalid Interpretation Code [facility] Comment on above: Result Comment: Nega tive Not infected with HCV, unless recent infection is suspected or other evidence exists to indicate HCV infection. Performed at: [address] [id number] PhD Preet Blevins Performed By: #### 8 [id number], [id number], [id number], [id number], [id number], [id number] ####[facility] [id number] [place] [address] HCV Antibody RFX to Quant PC José Luis 02-01-2022 HCV Ab Signal/Cutoff IA [Rel units/Vol] {ratio} Invalid Interpretation Code 0.0-0.9 [facility] Comment on above: Result Comment: Perf ormed at: [address] [id number] PhD Preet Blevins Performed By: #### 8 [id number], [id number], [id number], [id number], [id number], [id number] ####[facility] [id number] [place] [address] Hep Bs Abon 02-01-2022 HBV surface Ab Ql (S) Reactive Invalid Interpretation Code [facility] Comment on above: Result Comment: Non Reactive: Inconsistent with immunity, less than 10 mIU/mL Reactive: Consistent with immunity, greater than 9.9 mIU/mL Performed at: [address] [id number] PhD Preet Blevins Performed By: #### 8 [id number], [id number], [id number], [id number], [id number], [id number] #### [facility] [address] [place] [address] Hep Bs Agon 02-01-2022 HBV surface Ag IA Ql Negative Invalid Interpretation Code Negative [facility] Comment on above: Result Comment: Perf ormed at: [facility] [address] [place], [place] [id number] PhD Preet Blevins Performed By: #### 8 [id number], [id number], [id number], 7827362, [id number], [id number] ####[facility] [id number] [place] [address] Jhony 01-30-2022 ALT No additional P-5'-P [Catalytic activity/Vol] 16 Int._Unit/L Normal 6-46 [facility] Comment on above: Performed By: #### 8 [id number], [id number], [id number], 2516558, [id number], [id number] #### [facility] [address] [place] [address] Consent for Treatmenton 090 Consent for Treatment [id number]:12 7 Normal [facility] HIV-1/2 Ag/Ab Comboon 2021 HIV 1+2 Ab and HIV1 p24 Ag IA.rapid Nom (S/P/Bld) Negative Normal Negative [facility] Comment on above: Performed By: #### 8 [id number], [id number], [id number], [id number], [id number], [id number] #### [facility] [address] [place] [address] HIV 1+2 Ab+HIV1 p24 Ag IA Ql Non-Reactive Normal Non-Reactive [facility] Comment on above: Performed By: #### 8 [id number], [id number], 1690058, 4424403, [id number], [id number] #### [facility] [address] [place] [address] HIV Combo Internal Control Line Reactive Normal Reactive [facility] Comment on above: Performed By: #### 8 [id number], [id number], 5214362, 1537334, [id number], [id number] #### [facility] [address] [place] [address] HIV-1/2 Ag/Ab Combo Negative for HIV-1 and/or HIV-2 antibodies and HIV-1 p24 antigen. Normal Negative [facility] Physician Orderon 01-30-2022 Physician Order [id number]:1 27 Normal [facility] PAP ACOG PANEL 2: 21 to 29on 12-29-2021 . . Normal [facility] Comment on above: Performed By: #### 4 [id number] #### [facility] [address] [place] [address] Dr. Jinny Palomino Age Gdln ACOG Testing 21- [facility] Comment on above: Performed By: #### 4 [id number] #### [facility] [address] [place] [address] Dr. Jinny Palomino DIAGNOSIS: Comment [facility] Comment on above: Result Comment: NEGA TIVE FOR INTRAEPITHELIAL LESION OR MALIGNANCY. Performed By: #### 4 [id number] #### [facility] [address] [place] [address] Dr. Jinny Palomino Methodology: Comment [facility] Comment on above: Result Comment: This liquid based ThinPrep(R) pap test was screened with the use of an image guided system. Performed By: #### 4 [id number] #### [facility] [address] [place] [address] Dr. Jinny Palomino Note: Comment [facility] Comment on above: Result Comment: The Pap smear is a screening test designed to aid in the detection of premalignant and malignant conditions of the uterine cervix. It is not a diagnostic procedure and should not be used as the sole means of detecting cervical cancer. Both false-positive and false-negative reports do occur. . Performed By: #### 4 [id number] #### [facility] [address] [place] [address] Dr. Jinny Palomino Performed by: Comment Normal [facility] Comment on above: Result Comment: Allison Coyle, Supervisor Order Takers (ASCP) Performed By: #### 4 [id number] #### [facility] [address] [place] [address] Dr. Jinny Palomino Reflex Criteria: Comment Normal [facility] Comment on above: Result Comment: The HPV DNA reflex criteria were not met with this specimen result therefore, no HPV testing was performed. . Performed By: #### 4 [id number] #### [facility] [address] [place] [address] Dr. Jinny Palomino Specimen adequacy: Comment Normal [facility] Comment on above: Result Comment: Sati sfactory for evaluation. Endocervical and/or squamous metaplastic cells (endocervical component) are present. Performed By: #### 4 [id number] #### [facility] [address] [place] [address] Dr. Jinny Palomino CHLAMYDIA/GONOCOCCUS RANDALL (SW AB/URINE/PAPon 12-28-2021 Chlamydia trachomatis, RANDALL Negative Normal Negative [facility] Comment on above: Performed By: #### C T/NGNA #### [facility] [address] [place] [address] Dr. Jinny Palomino Neisseria gonorrhoeae, RANDALL Negative Normal Negative [facility] Comment on above: Performed By: #### C T/NGNA #### [facility] [address] [place] [address] Dr. Jinny Palomino VAGINITIS/VAGINOSIS DNA PROB Prosper 12-27-2021 [place] species Negative Normal Negative [facility] Comment on above: Performed By: #### V AGINT #### [facility] [address] [place] [address] Dr. Jinny Palomino Gardnerella vaginalis Negative Normal Negative [facility] Comment on above: Performed By: #### V AGINT #### [facility] [address] [address] [address] Jinny Palomino Trichomonas vaginalis Negative Normal Negative [facility] Comment on above: Performed By: #### V AGINT #### [facility] [address] [place], [place] [id number] Dr. Jinny Palomino Hep Bs Abon 2021 HBV surface Ab Ql (S) Reactive Invalid Interpretation Code [facility] Comment on above: Result Comment: Non Reactive: Inconsistent with immunity, less than 10 mIU/mL Reactive: Consistent with immunity, greater than 9.9 mIU/mL Performed at: [address] [id number] PhD Preet Blevins Performed By: #### 1 [id number], [id number], [id number], [id number] #### [facility] [address] [id number] Measles/Mumps/Rubella Immuni tyon 2021 MeV IgG IA Qn (S) 59.4 A unit/mL Invalid Interpretation Code Immune >16.4 [facility] Comment on above: Result Comment: Nega tive <13.5 Equivocal 13.5 - 16.4 Positive >16.4 Presence of antibodies to Rubeola is presumptive evidence of immunity except when acute infection is suspected. Performed By: #### 1 [id number], [id number], 5788489, [id number] #### [facility] [address] [id number] MuV IgG IA Qn (S) 52.4 A unit/mL Invalid Interpretation Code Immune >10.9 [facility] Comment on above: Result Comment: Nega tive <9.0 Equivocal 9.0 - 10.9 Positive >10.9 A positive result generally indicates past exposure to Mumps virus or previous vaccination. Performed at: [facility] [address] [place] [address] [id number] PhD Preet Blevins Performed By: #### 1 [id number], [id number], [id number], [id number] #### [facility] [address] [place] [address] Rubella virus IgG Qn (S) [IU]/mL Low Immune >0.99 [facility] Comment on above: Result Comment: Non- immune <0.90 Equivocal 0.90 - 0.99 Immune >0.99 Performed By: #### 1 [id number], [id number], 2193296, [id number] #### [facility] [address] [place], [place] [id number] Quantiferon-TB Plus (Client Incubated)on 2021 Gamma interferon background IA Qn (Bld) 0.03 International_Unit/mL Invalid Interpretation Code [facility] Comment on above: Performed By: #### 1 [id number], [id number], [id number], [id number] #### [facility] [address] [place] [address] M. tuberculosis stim IFN-g by CD4+ CD8+ T-cells corrected for background Qn (Bld) 0.06 International_Unit/mL Invalid Interpretation Code [facility] Comment on above: Performed By: #### 1 [id number], [id number], [id number], [id number] #### [facility] [address] [place], [place] [address] M. tuberculosis stim IFN-g by CD4+ T-cells corrected for background Qn (Bld) 0.04 International_Unit/mL Invalid Interpretation Code [facility] Comment on above: Performed By: #### 1 [id number], [id number], 7345922, [id number] #### [facility] [address] [place] [address] M. tuberculosis stim IFN-g Ql (Bld) [Interp] Negative Invalid Interpretation Code Negative [facility] Comment on above: Result Comment: The specimen received for QuantiFERON testing was incubated by the ordering institution. Specific procedures outlined in our Directory of Services and in the package insert for the QuantiFERON Gold (In Tube) test must be followed to enable for proper stimulation of cells for the production of interferon gamma. Chemiluminescence immunoassay methodology Performed at: [facility] [address] [place], [place] [id number] PhD Preet Blevins Performed By: #### 1 [id number], [id number], 4063562, [id number] #### [facility] [address] [place] [address] Mitogen stimulated gamma interferon Qn (Bld) >10.00 Invalid Interpretation Code [facility] Comment on above: Performed By: #### 1 [id number], [id number], 5805072, [id number] #### [facility] [address] [place] [address] Service comment (Unsp spec) [Interp] Comment Invalid Interpretation Code [facility] Comment on above: Result Comment: The QuantiFERON-TB Gold Plus result is determined by subtracting the Nil value from either TB antigen (Ag) tube. The mitogen tube serves as a control for the test. Performed By: #### 1 [id number], [id number], [id number], [id number] #### [facility] [address] [place] [address] Varic IgGon 2021 VZV IgG IA Qn (S) 236 Invalid Interpretation Code Immune >165 [facility] Comment on above: Result Comment: Nega tive <135 Equivocal 135 - 165 Positive >165 A positive result generally indicates exposure to the pathogen or administration of specific immunoglobulins, but it is not indication of active infection or stage of disease. Performed at: [facility] [address] [place], [place] [id number] PhD Preet Blevins Performed By: #### 1 [id number], [id number], [id number], [id number] #### [facility] [address] [place] [address] Consent for Treatmenton 07-24 Consent for Treatment [id number]#1.00CD:12 7 Normal [facility] Physician Orderon 08-03-2021 Physician Order [id number]#1.00CD:1 27 Normal [facility] Pneumococcal Abs, IgG (23 Se rotypes)on 01-15-2018 Pneumo Serotyp 10A, IgG (PNX) 16.60 ug/mL Normal [facility] Comment on above: Performed By: #### P NEM2 ####[id number] [place] [address] Pneumo Serotyp 11A, IgG (PNX) 8.89 ug/mL Normal [facility] Comment on above: Performed By: #### P NEM2 ####[id number] [place] [address] Pneumo Serotyp 12F, IgG (PNX) 3.13 ug/mL Normal [facility] Comment on above: Performed By: #### P NEM2 ####[id number] [place] [address] Pneumo Serotyp 15B, IgG (PNX) 27.97 ug/mL [facility] Comment on above: Performed By: #### P NEM2 ####[id number] [place] [address] Pneumo Serotyp 17F, IgG (PNX) 18.01 ug/mL Normal [facility] Comment on above: Performed By: #### P NEM2 ####[id number] [place] [address] Pneumo Serotyp 18C, IgG (P7,P13,PNX) 3.28 ug/mL Normal [facility] Comment on above: Performed By: #### P NEM2 ####[id number] [place] [address] Pneumo Serotyp 19A, IgG (P13,PNX) 5.63 ug/mL Normal [facility] Comment on above: Performed By: #### P NEM2 ####[id number] [place] [address] Pneumo Serotyp 19F, IgG (P7,P13,PNX) 0.73 ug/mL Normal [facility] Comment on above: Performed By: #### P NEM2 ####[id number] [place] [address] Pneumo Serotyp 2, IgG (PNX) 13.09 ug/mL Normal [facility] Comment on above: Performed By: #### P NEM2 ####[id number] [place] [address] Pneumo Serotyp 20, IgG (PNX) 4.93 ug/mL Normal [facility] Comment on above: Performed By: #### P NEM2 ####[id number] [place] [address] Pneumo Serotyp 22F, IgG (PNX) 1.92 ug/mL Normal [facility] Comment on above: Performed By: #### P NEM2 ####[id number] [place] [address] Pneumo Serotyp 23F, IgG (P7,P13,PNX) 2.05 ug/mL Normal [facility] Comment on above: Performed By: #### P NEM2 ####[id number] [place] [address] Pneumo Serotyp 33F, IgG (PNX) 2.40 ug/mL Normal [facility] Comment on above: Performed By: #### P NEM2 ####[id number] [place] [address] Pneumo Serotype 1, IgG (P13,PNX) 10.98 ug/mL Normal [facility] Comment on above: Performed By: #### P NEM2 ####[id number] [place] [address] Pneumo Serotype 14, IgG (P7,P13,PNX) 1.63 ug/mL Normal [facility] Comment on above: Performed By: #### P NEM2 ####[id number] [place] [address] Pneumo Serotype 3, IgG (P13,PNX) 2.46 ug/mL Normal [facility] Comment on above: Performed By: #### P NEM2 ####[id number] [place] [address] Pneumo Serotype 4, IgG (P7,P13,PNX) 4.97 ug/mL Normal [facility] Comment on above: Performed By: #### P NEM2 ####[id number] [place] [address] Pneumo Serotype 5, IgG (P13,PNX) 6.58 ug/mL Normal [facility] Comment on above: Performed By: #### P NEM2 ####[id number] [place] [address] Pneumo Serotype 6B, IgG (P7,P13,PNX) 0.37 ug/mL Normal [facility] Comment on above: Performed By: #### P NEM2 ####[id number] [place] [address] Pneumo Serotype 7F, IgG (P13,PNX) 14.71 ug/mL Normal [facility] Comment on above: Performed By: #### P NEM2 ####[id number] [place] [address] Pneumo Serotype 8, IgG (PNX) 7.28 ug/mL Normal [facility] Comment on above: Performed By: #### P NEM2 ####[id number] [place] [address] Pneumo Serotype 9N, IgG (PNX) 1.94 ug/mL Normal [facility] Comment on above: Performed By: #### P NEM2 ####[id number] [place] [address] Pneumo Serotype 9V, IgG (P7,P13,PNX) 2.30 ug/mL Normal [facility] Comment on above: Performed By: #### P NEM2 ####[id number] [place] [address] Pneumo Serotype Interp See Note Normal [facility] [...] Vaccine Immunol.2015;22(2):148-152.Test developed and characteristics determined by [employer]. See Compliance Statement B: [employer]/CSPerformed by [employer],[address] [place] [address] rli.[employer], Vishnu Queen MD - Lab. Director Performed By: #### P NEM2 ####[id number] [place] [address] Complement Act, Totalon 07-0 Complement Act, Total 137 Units Normal 60-144 [facility] Comment on above: Result Comment: INTE RPRETIVE INFORMATION: Complement Activity, Total EIA59 Units or less .......... Xof09-764 Units .............. Kdeuym214 Units or greater ....... HighPerformed by [employer],[address] [facility],[place] [id number] www.[employer], Vishnu Queen MD - Lab. Director Performed By: #### 1 [id number] ####[id number] [place] [address] Diphtheria/Tetanus IgGon Diptheria Ab, IgG 4.8 IU/mL Normal [facility] Comment on above: Result Comment: INTE RPRETIVE [...] usually adequate.Test developed and characteristics determined by [employer]. See Compliance Statement B: [employer] Performed By: #### 0 [id number] ####[id number] [place] [address] Tetanus Ab, IgG 5.2 IU/mL Normal [facility] Comment on above: Result Comment: INTE RPRETIVE [...] is usuallyadequate.Test developed and characteristics determined by [facility]. See Compliance Statement B: [employer]/CSPerformed by [employer],[address] [place] [address] ily.[employer], Vishnu Queen MD - Lab. Director Performed By: #### 0 [id number] ####[id number] [place] [address] H. Influenzae B, IgGon 11-25 H. Influenzae B, IgG 4.1 ug/mL Normal [facility] Comment on above: Result Comment: INTE RPRETIVE [...] a non-responder.Test developed and characteristics determined by [employer]. See Compliance Statement B: [employer]/CSPerformed by [employer],[address] [place] [address] oos.[employer], Vishnu Queen MD - Lab. Director Performed By: #### 0 [id number] ####[id number] [place] [address] IgG Subclasseson 11-25-2017 IgG mass conc 1130 mg/dL Normal 700-1600 [facility] Comment on above: Result Comment: MONO CLONAL PROTEINS MAY CAUSE FALSELY LOWRESULTS IN THIS ASSAY. SERUM PROTEINELECTROPHORESIS SHOULD BE DONE THEFIRST TEST TO EVALUATE MONOCLONAL GAMMOPATHY. IgG Subclass 1 841 mg/dL Normal 490-1140 [facility] IgG Subclass 2 288 mg/dL Normal 150-640 [facility] IgG Subclass 3 55 mg/dL Normal 11-85 [facility] IgG Subclass 4 10 mg/dL Normal 3-200 [facility] Comment on above: Result Comment: DUE TO INHERENT IMPRECISION OF METHODS, THESUM OF COMPONENTS MAY DIFFER FROM TOTAL IGGBY MUCH 20%. Immunoglobulin Qnt (IgA, IgG , IgM)on 11-25-2017 IgA mass conc 241 mg/dL Normal 70-400 [facility] Comment on above: Result Comment: [...] 11/25/2017 3:23:22 PM Vitals Vital Signs Recorded: [id number] 03:65QILdbcnw0 ft 2 hzCaauxi662 lb BMI Wunpyxsyhx07.61BSA Calculated1.64 Physical ExamGeneral appearance: No acute distress. [...] Nov 25 2017 6:08PM EST (Author) [facility] P[facility] Abs, IgG (23 Se rotypes)on 11-25-2017 Pneumo Serotyp 10A, IgG (PNX) 3.18 ug/mL Normal [facility] Comment on above: Performed By: #### P NEM2 ####[id number] [place] [address] Pneumo Serotyp 11A, IgG (PNX) 1.78 ug/mL Normal [facility] Comment on above: Performed By: #### P NEM2 ####[id number] [place] [address] Pneumo Serotyp 12F, IgG (PNX) 0.25 ug/mL Normal [facility] Comment on above: Performed By: #### P NEM2 ####[id number] [place] [address] Pneumo Serotyp 15B, IgG (PNX) 4.19 ug/mL Normal [facility] Comment on above: Performed By: #### P NEM2 ####[id number] [place] [address] Pneumo Serotyp 17F, IgG (PNX) 3.99 ug/mL Normal [facility] Comment on above: Performed By: #### P NEM2 ####[id number] [place] [address] Pneumo Serotyp 18C, IgG (P7,P13,PNX) 0.08 ug/mL Normal [facility] Comment on above: Performed By: #### P NEM2 ####[id number] [place] [address] Pneumo Serotyp 19A, IgG (P13,PNX) 1.98 ug/mL [facility] Comment on above: Performed By: #### P NEM2 ####[id number] [place] [address] Pneumo Serotyp 19F, IgG (P7,P13,PNX) 0.27 ug/mL Normal [facility] Comment on above: Performed By: #### P NEM2 ####[id number] [place] [address] Pneumo Serotyp 2, IgG (PNX) 6.07 ug/mL Normal [facility] Comment on above: Performed By: #### P NEM2 ####[id number] [place] [address] Pneumo Serotyp 20, IgG (PNX) 1.46 ug/mL Normal [facility] Comment on above: Performed By: #### P NEM2 ####[id number] [place] [address] Pneumo Serotyp 22F, IgG (PNX) 0.12 ug/mL Normal [facility] Comment on above: Performed By: #### P NEM2 ####[id number] [place] [address] Pneumo Serotyp 23F, IgG (P7,P13,PNX) 0.27 ug/mL Normal [facility] Comment on above: Performed By: #### P NEM2 ####[id number] [place] [address] Pneumo Serotyp 33F, IgG (PNX) 1.01 ug/mL Normal [facility] Comment on above: Performed By: #### P NEM2 ####[id number] [place] [address] Pneumo Serotype 1, IgG (P13,PNX) 0.07 ug/mL Normal [facility] Comment on above: Performed By: #### P NEM2 ####[id number] [place] [address] Pneumo Serotype 14, IgG (P7,P13,PNX) 0.16 ug/mL [facility] Comment on above: Performed By: #### P NEM2 ####[id number] [place] [address] Pneumo Serotype 3, IgG (P13,PNX) 0.71 ug/mL [facility] Comment on above: Performed By: #### P NEM2 ####[id number] [place] [address] Pneumo Serotype 4, IgG (P7,P13,PNX) 0.41 ug/mL [facility] Comment on above: Performed By: #### P NEM2 ####[id number] [place] [address] Pneumo Serotype 5, IgG (P13,PNX) 1.93 ug/mL Normal [facility] Comment on above: Performed By: #### P NEM2 ####[id number] [place] [address] Pneumo Serotype 6B, IgG (P7,P13,PNX) 0.23 ug/mL Normal [facility] Comment on above: Performed By: #### P NEM2 ####[id number] [place] [address] Pneumo Serotype 7F, IgG (P13,PNX) 0.82 ug/mL Normal [facility] Comment on above: Performed By: #### P NEM2 ####[id number] [place] [address] Pneumo Serotype 8, IgG (PNX) 0.37 ug/mL Normal [facility] Comment on above: Performed By: #### P NEM2 ####[id number] [place] [address] Pneumo Serotype 9N, IgG (PNX) 0.30 ug/mL Normal [facility] Comment on above: Performed By: #### P NEM2 ####[id number] [place] [address] Pneumo Serotype 9V, IgG (P7,P13,PNX) 0.05 ug/mL [facility] Comment on above: Performed By: #### P NEM2 ####[id number] [place] [address] Pneumo Serotype Interp See Note Normal [facility] [...] Vaccine Immunol.2015;22(2):148-152.Test developed and characteristics determined by [employer]. See Compliance Statement B: [employer]/CSPerformed by [employer],[address] [place] [address] xyl.[employer], Vishnu Queen MD - Lab. Director Performed By: #### P NEM2 ####[id number] [place] [address] Encounters Encounter Date Encounter Type Care Provider Facility Start: 09-09-2022 Encounter for genera l adult medical examination without abnormal findings DR SABRINA RAMIREZ . [facility] Start: 09-04-2022 End: 09-05-[address] SABRINA RAMIREZ . Facility:[facility] Start: 09-04-2022 End: 09-05-2022 Encounter for general adult medical examination without abnormal findings DR SABRINA RAMIREZ . Facility:[facility] Start: 08-22-2022 End: 08-23-[address] SABRINA RAMIREZ . Facility:[facility] Start: 12-25-2021 End: 12-25-[address] VIC MCKEON . Facility:[facility] Start: 01-15-2018 Patient encounter DELMY ASHLEY [place] Facility:[facility] Start: 11-25-2017 Patient encounter BAKARI AMEZCUA Jimena y:[facility] Start: 11-25-2017 Ambulatory Bakari Amezcua Facility :9242 Payers Date Payer Category Payer Unknown [id number] 1995 Unknown [id number] [id number] [id number] 1995 Unknown [id number] 2.16.84 [id number] 1959 Private Health Insurance [id number] 1959 Self-pay Unknown [id number] Unknown [id number] 2.16.84 [id number] Unknown [id number] Summary Purpose Family History No Family History [...] section and content) DATE CREATED AUTHOR 11/25/2017 [email or web address] DATE CREATED AUTHOR AUTHOR'S ORGANIZ ATION 12/02/2017 [facility] DATE CREATED AUTHOR AUTHOR'S ORGANIZ ATION 02/16/2018 [facility] DATE CREATED AUTHOR AUTHOR'S ORGANIZ ATION 02/01/[address] [facility] DATE CREATED AUTHOR AUTHOR'S ORGANIZ ATION 06/19/2022 [facility] dical Specialist DATE CREATED AUTHOR AUTHOR'S ORGANIZ [...] BE BASED ON THE PRIMARY CLINICAL RECORDS. [email or web address] provides no warranty or guarantee of the accuracy or completeness of information in this document.
== END 2024-02-23 21:38 | disposition home or self-care (01) ==
LOC: LAB 21:37
PROVIDERS: PCP Family Medicine; Visit Provider Obstetrics & Gynecology
DX: Z01.419 Encounter for gynecological examination (general) (routine) without abnormal findings (principal)
CPT/HCPCS: 88175

== ENCOUNTER 2024-08-13 10:30 | Outpatient (OUT) | payer OTHER, SELFPAY ==
[2024-08-13 11:10] LABS: Eosinophils Percent Auto 0.3 % (0.9-7.0); Hemoglobin 12.4 g/dL (12.0-16.0); Immature Granulocytes Abs Auto 0.01 10^3/uL (0.00-0.03); Immature Granulocytes Pct Auto 0.2 % (0.0-0.5); Lymphocytes Absolute Auto 1.1 10^3/uL (1.2-3.8); Lymphocytes Percent Auto 18.6 % (20.5-60.0); Mean Corpuscular HGB Conc 35.4 g/dL (29.9-35.2); Mean Corpuscular Hemoglobin 30.2 pg (26.7-34.0); Mean Corpuscular Volume 85.2 fL (81.0-99.0); Mean Platelet Volume 9.1 fL (9.5-13.5); Monocytes Absolute Auto 0.4 10^3/uL (0.3-0.8); Monocytes Percent Auto 7.5 % (1.7-12.0); Neutrophils Absolute Auto 4.3 10^3/uL (1.4-6.5); Neutrophils Percent Auto 73.4 % (43.0-75.0); Platelet Count 244 10^3/uL (150-450); Red Blood Count 4.11 10^6/uL (4.20-5.40); Red Cell Distribution Width 12.3 % (11.0-15.0); White Blood Count 5.9 10^3/uL (4.0-11.0)
[2024-08-13 11:26] LABS: Amphetamine Screen Urine NEGATIVE (NEGATIVE); Barbiturates Screen Urine NEGATIVE (NEGATIVE); Benzodiazepines Screen Urine NEGATIVE (NEGATIVE); Buprenorphine Screen Urine NEGATIVE (NEGATIVE); Cannabinoid Screen Urine NEGATIVE (NEGATIVE); Cocaine Screen Urine NEGATIVE (NEGATIVE); Methadone Screen Urine NEGATIVE (NEGATIVE); Methamphetamines Screen Urine NEGATIVE (NEGATIVE); Opiate Screen Urine NEGATIVE (NEGATIVE); Oxycodone Screen Urine NEGATIVE (NEGATIVE); Phencyclidine Screen Urine NEGATIVE (NEGATIVE); Tricyclic Antidepressant Urine NEGATIVE (NEGATIVE)
[2024-08-13 11:41] LABS: Estimated Average Glucose 108 mg/dL; Glycohemoglobin A1C 5.4 % (4.5-6.2)
[2024-08-14 06:12] LABS: HBsAg Screen Negative (Negative); HCV Ab Non Reactive (Non Reactive); HIV Ab/p24 Ag Screen Non Reactive (Non Reactive)
[2024-08-14 11:10] LABS: Rubella Antibodies, IgG <0.90 index (Immune >0.99)
[2024-08-14 12:08] LABS: Rapid Plasma Reagin, Quant Non Reactive titer (NonRea<1:1)
== END 2024-08-13 10:31 | disposition home or self-care (01) ==
PROVIDERS: PCP Family Medicine; Visit Provider Obstetrics & Gynecology
DX: Z34.01 Encounter for supervision of normal first pregnancy, first trimester (principal); N92.6 Irregular menstruation, unspecified
CPT/HCPCS: 36415; 80307; 83036; 85025; 86592; 86762; 86803; 86850; 86900; 86901; 87086; 87340; 87389

== ENCOUNTER 2024-09-23 15:01 | Outpatient (REF) | payer OTHER, SELFPAY ==
[2024-09-27 12:09] LABS: Age Gdln ACOG Testing Note (.); IGP, rfx Aptima HPV ASCU Note (.)
== END 2024-09-23 15:02 | disposition home or self-care (01) ==
LOC: LAB 15:01
PROVIDERS: PCP Family Medicine; Visit Provider Obstetrics & Gynecology
DX: Z01.419 Encounter for gynecological examination (general) (routine) without abnormal findings (principal)
CPT/HCPCS: 88175

== ENCOUNTER 2024-11-24 12:09 | Outpatient (OUT) | payer OTHER, SELFPAY ==
--- OUTSIDE RECORDS SUMMARY | 2023-12-18 13:03 | XMS_ITS ---
Author Organization The [facility] in [place] Address [address] [place] [address] Care Team Providers Care Underwriting Clerks Supervisor Name Role Phone Harsh Laguna Primary Care Provider REASON FOR VISIT Massage rx- Medications Medication SIG (Take, Route, Fr equency, Duration) Notes Start Date End Date Status Cyproheptadine HCl 4 MG Take 1 tablet by mouth once daily for 90 days Active Encounters Encounter Location Date Provider Diagnosis [facility] [address] [place] [address] 12/18/2023 Harsh Laguna Headache, unspecifie d R51.9 Assessments Encounter Date Diagnosis (ICD Code) Assessment Notes Treatment Notes Treatment Clinical Notes Section Notes 12/18/2023 Headache, unspecified (ICD-10 - R51.9) Plan Of Treatment Medication Medication Name Sig Start Date Stop Date Notes Cyproheptadine HCl 4 MG Take 1 tablet by mouth once daily for 90 days Progress Notes * Alia TURCIOS ADOB: [birth year] (28 yo F)Acc No.[id number]:12/18/2023 Patient: Christopher GONZALEZAlia ANGELA :1995 A ge:28 Y S ex:Female Address:[facility] [place] [address] * Refills Refill Cyproheptadine HCl Tablet, 4 MG, 90 Tablet, Take 1 tablet by mouth once daily, 90 days, Refills=3 * true * Date: Generated for Denis slacedo/Uzair/Maribell on: 0 11/24/2024 12:12 PM EDT
--- OUTSIDE RECORDS SUMMARY | 2023-12-18 13:18 | XMS_ITS ---
Author Organization The [facility] in [place] Address [address] [place] [address] Care Team Providers Care Hr Business Partner Name Role Phone Harsh Laguna Primary Care Provider [phone] REASON FOR VISIT RE:Doctor Encounters Encounter Location Date Provider Diagnosis [facility] [address] [place] [address] 12/18/2023 Harsh Laguna Plan Of Treatment No Information Progress Notes * Alia TURCIOS ADOB: [birth year] (28 yo F)Acc No.[id number]:12/18/2023 Patient: Christopher REYES Alia Avani :1995 A ge:28 Y S ex:Female Address:[facility] [address], [place] [address] * true * Date: Generated for Printi ng/Fadavidg/eTransmitting on: 0 11/24/2024 12:11 PM EDT
--- OUTSIDE RECORDS SUMMARY | 2024-04-09 07:00 | XMS_ITS ---
Author Organization The [facility] in [place] Address [address] [place] [address] Care Team Providers Care Palletizer Name Role Phone Harsh Laguna Primary Care [...] 04/09/2024 Encounters Encounter Location Date Provider Diagnosis [facility] [address] [facility] [place] [address] 04/09/2024 Harsh Laguna Migraine G43.909 Assessments Encounter [...] BRAIN WO CON 04/09/2024 Progress Notes * SAQIBREBEKA Aila ADOB: [birth year] (28 yo F)Acc No.[id number]:04/09/2024 Progress Note Patient: Alia BETANCOURT Provider: Sandra Laguna ([facility])MD :1995 A ge:28 Y S ex:Female Date:04/09/2024 Address:[facility] [address], [id number] Check In:10:54 AM ESTCheck O ut:11:45 AM EST Subjective: * Chief Complaints: * P resents to office with mom for c/o headaches for the past 2 months since stopping BCPAlso says she stopped the Cyproheptadine and Gabapentin * HPI: D epression Screening: PHQ-2 (2015 Edition) L ittle interest or pleasure in doing things?�Not at all F eeling down, depressed, or hopeless? 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 * ROS: E ENT: hearing changes d enies. v isual changes d enies.�non-healing mouth sores d enies. s wollen glands or neck lumps d enies. h oarseness d enies. s ore throat d enies. d ifficulty swallowing d enies. n ose bleeds d enies. n shon congestion d enies. e ar ache d enies. e ar discharge�denies. r inging in ears d enies. l ight sensitivity d enies. e ye pain d enies. b lurring d enies. e ye irritation d enies. d ouble vision d enies.�vision loss d enies. G eneral/Constitutional: Sweats: D enies. F atigue d enies. S leep problems d enies. A norexia d enies. M alaise d enies. W eight loss d enies.�Fatigue or Weakness d enies. F ever or [...] frequent cough d enies. C oughing up blood�denies. D ifficulty breathing d enies. P roductive cough d enies. S noring�denies. S hortness of breath that awakens from [...] face Modified On:08/31/2019W/U Status:confirmed E16.2 Hypoglycemia Modified On:08/24/2020/U Status:confirmed G89.29 Other chronic pain Modified On:12/04/2022W/U Status:confirmed R00.2 Palpitation Modified On:03/19/2023W/U Status:confirmed G43.909 Migraine Modified On:04/09/2024/U Status:confirmed * Medical History: * Surgical History: w isdom teeth Appendectomy 08/08/2018 * Hospitalization/Major Diagno stic Procedure: S ee above * Family History: F ather: , AVM- passed in 40's, diagnosed with Unspecified essential hypertension.�Mother: alive, Trigeminal Neuralgia. V-tach with cardiac ablation, diagnosed with Unspecified essential hypertension. P aternal Grandfather: , diagnosed with Unspecified heart disease.�Paternal Grandmother: , diagnosed with Other malignant neoplasm [...] NOSE: n o deformity, discharge, inflammation, or lesions.� MOUTH: m ucous membranes moist, normal oropharynx and posterior pharynx without lesions or exudates, tongue normal, dentition normal. NECK: n alfredo supple, no masses or palpable cervical nodes, trachea midline, thyroid without nodules, masses, tenderness, or enlargement. CHEST: n o chest wall deformity, no chest wall tenderness.� LUNGS: n ormal respiratory effort and clear [...] and affect. Assessment: * Assessment: [facility]. [facility] (Primary) Plan: * Treatment: * Procedure Codes: * Preventive Medicine: Screenings/Counseling: B [place] ACTION PLAN Above Normal BMI Follow-up D ietary management education, guidance, and counseling See treatment section of progress note for complete details of management plan. * * Sign off status: Completed Visit Status: C HK (Check Out) true * Provider: Sandra Laguna ([facility])MD Date: 1 06/09/2023 Generated for Printi ng/Fadavidg/eTransmitting on: 0 11/24/2024 12:11 PM EDT History and Physical Notes * HPI (History of Present Illness) Category Sub-Category Detail Notes Category Not es Depression Screening PHQ-2 (2015 Edition) Little interest or pleasure in doing things?: Not at all was on gabapentin for trigeminal neuralgia - not had headaches in the pats\ now does more in necka nd into scientologist area constant pressure Chnage in headche - [...]
--- OUTSIDE RECORDS SUMMARY | 2024-09-10 07:15 | XMS_ITS ---
Author Organization [facility] vices Address [address] [place] [phone] Care Team Providers Care Car Cleaner Name Role Phone Heaven Vera Unavailable [phone] Yuliet Lozano Unavailable [phone] REASON FOR VISIT Recall (A) (28) Social History Sex Assigned At : Social History Observation Description Sex Assigned At Female Encounters Encounter Location Date Provider Diagnosis [facility] [address] [place] [phone] 09/10/2024 Yuliet Lozano Plan Of Treatment Next Appt Details Provider Name:Deshawn Moon , 06/10/2025 09:45:00 AM, [address] [place], [place], [phone], Progress Notes * Alia BUNCHDOB: 6 (29 yo F)Acc No.[id number]:09/10/2024 Patient: Alia BETANCOURT Provider: Kimberlee Lozano DMD :1995 A ge:29 Y S ex:Female Date:09/10/2024 Address[address], [id number] Subjective: * Chief Complaints: * 1 . Recall (A) (28). * Medical History: Objective: * Vitals: Assessment: Plan: * Treatment: * Billing Information: * Visit Code: * Procedure Codes: * Electronic signature of Audra Lozano DMD on 11/24/2024 at 12:12 PM EDT Sign off status: Pending * Provider: Kimberlee Lozano DMD Date: 0 09/10/2024 Generated for Denis salcedo/Patrick on: 0 11/24/2024 12:12 PM EDT
--- OUTSIDE RECORDS SUMMARY | 2024-11-15 12:47 | XMS_ITS | Encounter Summary ---
Author Organization [employer] [facility] tem Address [id number] [address] [place] [address] Care Team Providers Care Commercial Attache Name Role Phone Belén Rooney MD Primary Care Provider [phone] Reason for Referral * Diagnostic Imaging (Routine) - Pending Review Specialty Diagnoses / Procedures Referred By Contac t Referred To Contact Maternal and Medicine Diagnoses Encounter for other screening follow-up Monochorionic diamniotic twin gestation in second trimester Procedures [facility] with or without consult Jefferson Anders MD [address] [facility], [address] [place] [address] Phone: tel: fax: Maternal- Medicine at [facility] [address] [place] [address] Phone: tel: fax: Referral ID Status Reason Start Date Expiration Date V isits Requested Visits Authorized [id number] Pending Review 11/12/2024 11/12/2025 1 1 Reason for Visit * Diagnostic Imaging (Routine) - Pending Review Specialty Diagnoses / Procedures Referred By Contac t Referred To Contact Maternal and Medicine Diagnoses Encounter for other screening follow-up Monochorionic diamniotic twin gestation in second trimester Procedures [facility] with or without consult Jefferson Anders MD [address], [address] [place] [address] Phone: tel: fax: Maternal- Medicine at [facility] [address] [place] [address] Phone: tel: fax: Referral ID Status Reason Start Date Expiration Date V isits Requested Visits Authorized [id number] Pending Review 11/12/2024 11/12/2025 1 1 Encounter Details Date Type Department Care Team (Latest Contact Info) Description 11/15/2024 12:47 PM EDT - 11/15/2024 11:59 PM EDT Hospital Encounter [facility] - [facility] US Imaging [address] [place] [address] Encounter for other screening follow-up; Monochorionic diamniotic twin gestation in second trimester Discharge Disposition: Home Social History Tobacco Use Types Packs/Day Years Used Date Smoking Tobacco: Never Smokeless Tobacco: Never Alcohol Use Standard Drinks/Week Comments Not Currently 0 (1 standard drink = 0.6 oz pur e alcohol) [facility] Utilities Answer Date Recorded In the past 12 months has e electric, gas, oil, or water company threatened to shut off services in your home? No 11/07/2024 PRAPARE - Transportation Answer Date Re corded In the past 12 months, has l ack of transportation kept you from medical appointments or from getting medications? No 10/24 In the past 12 months, has l ack of transportation kept you from meetings, work, or from getting things needed for daily living? No 11/07/2024 Housing Instability Answer Date Recorde d Are you worried or concerned that in the next two months you may not have stable housing that you own, rent or stay in as a part of a household? No 11/07/2024 Childcare Answer Date Recorded Childcare Unknown 11/04/2018 Employment Answer Date Recorded Employment Unknown 11/04/2018 Hunger Screening Answer Date Recorded Within the past 12 months we worried whether our food would run out before we got money to buy more. Never True 11/07/2024 Within the past 12 months th e food we bought just didn't last and we didn't have money to get more. Never True 11/07/2024 Purpose - Life Answer Date Recorded Purpose and direction in life Unknown Estimated Date of Delivery Comme nts Yes 03/15/2025 Based on last me nstrual period of 06/08/2024 Sex and Gender Information Value Date Recorded Sex Assigned at Not on file Legal Sex Female 11:52 AM EDT Gender Identity Female 10/04/2024 7:53 AM EDT Sexual Orientation Not on file documented as of this encounter Medications at Time of Discharge aspirin 81 mg Take 1 tablet (81 mg total) by mouth in the morning. busPIRone (BUSPAR) 5 mg tablet Take 1 tablet (5 mg total) by mouth in the morning and 1 tablet (5 mg total) before bedtime. 01/07/2023 cyproheptadine (PERIACTIN) 4 mg tablet 09/24/2016 docusate sodium (COLACE) 100 mg capsule Take 1 capsule (100 mg total) by mouth in the morning. doxepin (SINEquan) 10 mg capsule Take 1 capsule (10 mg total) by mouth in the morning and 1 capsule (10 mg total) before bedtime. 03/21/2023 escitalopram (LEXAPRO) 20 mg tablet Take 1 tablet (20 mg total) by mouth in the morning. 03/21/2023 magnesium oxide (MAG-OX) 400 mg tablet 09/24/2016 ondansetron (ZOFRAN) 4 mg tablet Take 4 mg by mouth every 8 (eight) hours as needed for nausea or vomiting. PIRMELLA 1-35 mg-mcg per tablet 10/01/2016 no115/iron/folic acid ( 19 ORAL) Take 1 tablet by mouth in the morning. documented as of this encounter Plan of Treatment Upcoming Encounters Date Type Department Care Team (Late st Contact Info) Description 11/29/2024 3:00 PM EDT Appointment [facility] - [facility] US Imaging [address] [place] [address] 12/06/2024 8:00 AM EDT Appointment [facility] - MFM US Imaging [address] [place] [address] 01/10/2025 8:30 AM EDT Office Visit Maternal- Medicine at [facility] [address] [place] [address] Jefferson Anders MD [address], [address] [place] [address] documented as of this encounter Procedures Procedure Name Priority Date/Time Associated Diagnosis Comments US MFM OB FOLLOW-UP, 1 FETUS Routine 11/15/2024 3:55 PM EDT Encounter for other screening follow-up Monochorionic diamniotic twin gestation in second trimester documented in this encounter Results * US MFM OB FOLLOW-UP, 1 FETUS (11/15/2024 3:55 PM EDT) Anatomical Region Laterality Modality OB-COMMUNICATIONS EDITOR Ultrasound 11/15/2024 1:46 PM EDT Narrative 11/16/2024 1:40 PM EDT NAME: ALIVIA HARTMAN : 1995 SEX: F Accession Number: [id number] ORDERING PHYSICIAN: JEFFERSON ANDERS REFERRING PHYSICIAN: VIC MCKEON Coding ----- --------- Procedures 46522: Follow-up Ultrasound, per fetus. 2 32993: Echocardiography, , cardiovascular system, real time with image documentation (2D), with or without M-mode recording; follow-up or repeat study. 2 14740: Transvaginal Ultrasound (OB) 56063: Doppler velocimetry, ; umbilical artery. 2 48009: Doppler velocimetry, ; middle cerebral artery. 2 20351: Doppler Ductus Venosus. 2 Indication ----- --------- Screening for follow-up survey, Screening for cervical length, Liberty-Di twin , IUGR-Poor growth-twin A, Pre term contractions. History ----- --------- OB History 1. Para 0 [id number] Maternal Assessment ----- --------- Physical Exam Height 157 cm, 5 ft 2 in. Weight 67 kg, 147 lb. Initial weight 64 kg, 141 lb. BMI 26.89 kg/m . Initial BMI 25.79 kg/m . Weight gain 3 kg, 6 lb Method ----- --------- Transabdominal and transvaginal ultrasound examination ----- --------- Twin . Number of fetuses: 2. Monochorionic-diamniotic Dating ----- --------- LMP on: 06/08/2024 GA by LMP 22 w + 6 d VICTOR M by LMP: 03/15/2025 Ultrasound examination on: 11/15/2024 GA by U/S based upon: AC, BPD, Femur, HC GA by U/S 21 w + 3 d VICTOR M by U/S: 03/25/2025 GA by U/S based upon (Fetus 2): AC, BPD, Femur, HC GA by U/S (Fetus 2) 22 w + 0 d VICTOR M by U/S (Fetus 2): 03/21/2025 Assigned: based on the LMP, selected on 09/27/2024 Assigned GA 22 w + 6 d Assigned VICTOR M: 03/15/2025 Fetus A: General Evaluation ----- --------- Cardiac activity Present. FHR 148 bpm. Presentation: cephalic, lower right Placenta: Placental site: posterior, previously documented away from cervical os Umbilical cord: Cord vessels: 3 vessel cord. Insertion site: velamentous insertion Amniotic fluid: Amount of AF: normal amount. MVP 4.3 cm Fetus B: General Evaluation ----- --------- Cardiac activity Present. FHR 159 bpm. Presentation: cephalic, upper left Placenta: Placental site: posterior, previously documented away from cervical os Umbilical cord: Cord vessels: 3 vessel cord. Insertion site: documented previously Amniotic fluid: Amount of AF: normal amount. MVP 4.0 cm Fetus A: Biometry ----- --------- Standard BPD 51.9 mm 21w 5d 11% Hadlock OFD 65.8 mm 22w 1d 27% Tamica HC 189.8 mm 21w 2d 2% Hadlock AC 160.5 mm 21w 1d 5% Hadlock Femur 37.0 mm 21w 5d 11% Hadlock Humerus 32.8 mm 21w 0d 5% Tamica HC / AC 1.18 EFW 424 g 4% Hadlock EFW discordance 18.8 % EFW (lb) 0 lb EFW (oz) 15 oz EFW by: Hadlock ([id number]) Extended Tibia 32.2 mm 21w 6d 16% Tamica Field Appraiser 5.5 mm Head / Face / Neck Cephalic index 0.79 54% Nicolaides Nasal bone: documented previously Extremities / Bony Struc FL / BPD 0.71 FL / HC 0.19 FL / AC 0.23 Other Structures FHR 148 bpm Fetus B: Biometry ----- --------- Standard BPD 50.1 mm 21w 1d 3% Hadlock OFD 66.7 mm 22w 3d 34% Tamica HC 188.1 mm 21w 1d 1% Hadlock Cerebellum tr 22.9 mm 21w 2d 26% Hill AC 179.0 mm 22w 5d 39% Hadlock Femur 40.4 mm 23w 0d 46% Hadlock Humerus 36.0 mm 22w 4d 30% Tamica HC / AC 1.05 EFW 522 g 33% Hadlock EFW discordance 18.8 % EFW (lb) 1 lb EFW (oz) 2 oz EFW by: Hadlock ([id number]) Extended Tibia 32.3 mm 22w 0d 18% Tamica Field Appraiser 5.3 mm CM 5.2 mm 35% Nicolaides Head / Face / Neck Cephalic index 0.75 16% Nicolaides Nasal bone: documented previously Extremities / Bony Struc FL / BPD 0.81 FL / HC 0.21 FL / AC 0.23 Other Structures FHR 159 bpm Fetus A: Anatomy ----- --------- The following structures appear normal: Head/Neck: Cranium. Lateral ventricles. Cavum septi pellucidi. Parenchyma. Face: Lips. Nose. Heart/Thorax: 4-chamber view. Diaphragm. Abdomen: Stomach. Kidneys. Bladder. Small bowel. Large bowel. Spine: Cervical spine. Thoracic spine. Lumbar spine. Sacral spine. Extremities/Skeleton: Right foot. Left foot. Skeleton The following structures were documented previously: Head / Neck Choroid plexus. Midline falx. Cerebellum. Cisterna magna. Vermis. Neck. Nuchal fold. Face Profile. Nasal bone. Maxilla. Mandible. Orbits. Heart / Thorax RVOT view. LVOT view. 3-vessel view. 7-bltoom-bdelbta view. Great vessels. Right lung. Left lung. Abdomen Abdom. wall. Cord insertion. Right renal artery. Left renal artery. Genitals. Extremities / Right upper arm. Right forearm. Right hand. Left upper arm. Left forearm. Left hand. Right upper leg. Right lower leg. Left upper leg. Left lower leg. Fetus B: Anatomy ----- --------- The following structures appear normal: Head / Neck Cranium. Lateral ventricles. Cavum septi pellucidi. Cerebellum. Cisterna magna. Parenchyma. Face Profile. Maxilla. Mandible. Heart / Thorax 4-chamber view. RVOT view. LVOT view. 3-vessel view. 3-wcbmzs-mbrqejw view. Great vessels. Diaphragm. Abdomen Stomach. Kidneys. Bladder. Small bowel. Large bowel. Extremities / Right hand. Left hand. Right foot. Left foot. Skeleton The following structures were documented previously: Head / Neck Choroid plexus. Midline falx. Vermis. Neck. Nuchal fold. Face Lips. Nose. Nasal bone. Orbits. Heart / Thorax Right lung. Left lung. Abdomen Abdom. wall. Cord insertion. Right renal artery. Left renal artery. Genitals. Spine Cervical spine. Thoracic spine. Lumbar spine. Sacral spine. Extremities / Right upper arm. Right forearm. Left upper arm. Left forearm. Right upper leg. Right lower leg. Left Skeleton upper leg. Left lower leg. Fetus A: Echocardiogram ----- --------- Situs documented previously Cardiac position normal Cardiac axis normal Cardiac size normal (approx. 1/3 of thoracic area) Cardiac rhythm regular (normal) 4-chamber view normal LVOT view documented previously RVOT view documented previously 3-vessel view documented previously 0-cliiwb-kbxcbfn view documented previously Aortic arch view documented previously Ductal arch view documented previously Bicaval view documented previously Interventricular septum documented previously Venous-atrial connections documented previously AV connections documented previously VA connections documented previously Pulmonary veins documented previously Right atrium documented previously Left atrium documented previously Atrial septum documented previously Foramen ovale documented previously Right ventricle documented previously Left ventricle documented previously Ventricular septum documented previously Cross-over gr. arteries documented previously Main PA documented previously Pulmonary arteries documented previously Linear insertion of AV valves no Pericardial effusion no Fetus B: Echocardiogram ----- --------- Situs situs solitus (normal) Cardiac position normal Cardiac axis normal Cardiac size normal (approx. 1/3 of thoracic area) Cardiac rhythm regular (normal) 4-chamber view normal LVOT view normal RVOT view normal 3-vessel view normal 4-eksvms-cixsony view normal Aortic arch view normal Ductal arch view normal Bicaval view normal Interventricular septum normal Venous-atrial connections normal AV connections normal VA connections normal Pulmonary veins normal Right atrium normal Left atrium normal Atrial septum normal Foramen ovale normal Right ventricle normal Left ventricle normal Ventricular septum normal Cross-over gr. arteries anterior great artery (confirmed to be the pulmonary artery by its branching) which crosses the course of the proximal aorta, indicative of normal relationship of the great arteries Main PA the main pulmonary artery can be seen bifurcating into the ductus arteriosus and the right pulmonary artery Pulmonary arteries normal Linear insertion of AV valves no Pericardial effusion no Fetus A: Doppler ----- --------- Umbilical Artery: normal PI 1.35 91% Ebbing PS 49.55 cm/s 96% Ebbing TAmax 27.62 cm/s 79% Ebbing MD 12.06 cm/s S / D 4.36 77% Kiran Mid Cerebral Artery: normal PI 1.32 5% Ebbing RI 0.72 28% Bahlmann PS 28.08 cm/s PS 0.97 MoM ED 7.82 cm/s TAmax 15.53 cm/s 82% Ebbing CPR PI 0.98 3% Ebbing Fetus B: Doppler ----- --------- Umbilical Artery: normal PI 1.12 53% Ebbing PS -42.21 cm/s TAmax -26.66 cm/s MD -12.97 cm/s S / D 3.38 35% Kiran Mid Cerebral Artery: normal PI 1.90 64% Ebbing RI 0.78 59% Bahlmann PS 24.82 cm/s PS 0.85 MoM ED 5.36 cm/s TAmax 12.69 cm/s 47% Ebbing CPR PI 1.70 57% Ebbing Maternal Structures ----- --------- Uterus Visualized Cervix Visualized Approach - Transvaginal: Cervical length 3.78 cm Right Ovary Not visualized Left Ovary Not visualized Cul de Sac Suboptimal. No free fluid visualized Impression ----- --------- Monochorionic-diamniotic twin . Twin A is cephalic, lower right. EFW is 424 g at the 4%, which is consistent with FGR. anatomic survey and echocardiogram did not reveal sonographic evidence of any gross structural abnormalities. The HC measures less than the 3rd percentile for the gestational age but reference biometric measurement within 2 SD of the mean (Chervenak and colleagues, 1984). Amniotic fluid MVP measures 4.3 cm. bladder and stomach are visualized. Umbilical artery S/D ratio in normal range. MCA PSV is in the unremarkable range for the evaluation of anemia. Ductus venosus demonstrates continuous forward flow. Twin B is cephalic, upper left. EFW is 522 g at the 33%. anatomic survey and echocardiogram did not reveal sonographic evidence of any gross structural abnormalities. The HC measures less than the 3rd percentile for the gestational age but reference biometric measurement within 2 SD of the mean (Chervenak and colleagues, 1984). Amniotic fluid MVP measures 4 cm. bladder and stomach are visualized. Umbilical artery S/D ratio in normal range. MCA PSV is in the unremarkable range for the evaluation of anemia. Ductus venosus demonstrates continuous forward flow. Velamentous cord insertion at the tip of the placenta appearing like marginal cord insertion. Previously documented vasa previa is now resolved measuring 3.3 cm away from the cervix. Recommendations ----- --------- Please see [facility] documentation from today. The patient is scheduled for weekly Umbilical, MCA, and Ductus Dopplers. The patient is scheduled in three weeks for Growth ultrasound and Dopplers. Subsequent follow up or other follow up as clinically determined by primary OB provider unless otherwise specified by [facility]. Results forwarded to ordering provider so they can follow up with the patient as necessary. Procedure Note Jefferson Anders MD - 11/16/2024 NAME: ALIVIA HARTMAN : 1995 SEX: F Accession Number: [id number] ORDERING PHYSICIAN: JEFFERSON ANDERS REFERRING PHYSICIAN: VIC MCKEON Coding ----- --------- Procedures 16079: Follow-up Ultrasound, per fetus. 2 21739: Echocardiography, , cardiovascular system, real timewith image documentation (2D), with or without M-mode recording; follow-up or repeat study. 2 34754: Transvaginal Ultrasound (OB) 11767: Doppler velocimetry, ; umbilical artery. 2 07775: Doppler velocimetry, ; middle cerebral artery. 2 87256: Doppler Ductus Venosus. 2 Indication ----- --------- Screening for follow-up survey, Screening for cervical length, Liberty-Ditwin , IUGR-Poor growth-twin A, Pre term contractions. History ----- --------- OB History 1. Para 0 [id number] Maternal Assessment ----- --------- Physical Exam Height 157 cm, 5 ft 2 in. Weight 67 kg, 147 lb. Initialweight 64 kg, 141 lb. BMI 26.89 kg/m . Initial BMI 25.79 kg/m . Weight gain 3 kg, 6 lb Method ----- --------- Transabdominal and transvaginal ultrasound examination ----- --------- Twin . Number of fetuses: 2. Monochorionic-diamniotic Dating ----- --------- LMP on: 06/08/2024 GA by LMP 22 w + 6 d VICTOR M by LMP: 03/15/2025 Ultrasound examination on: 11/15/2024 GA by U/S based upon: AC, BPD, Femur, HC GA by U/S 21 w + 3 d VICTOR M by U/S: 03/25/2025 GA by U/S based upon (Fetus 2): AC, BPD, Femur, HC GA by U/S (Fetus 2) 22 w + 0 d VCITOR M by U/S (Fetus 2): 03/21/2025 Assigned: based on the LMP, selected on 09/27/2024 Assigned GA 22 w + 6 d Assigned VICTOR M: 03/15/2025 Fetus A: General Evaluation ----- --------- Cardiac activity Present. FHR 148 bpm. Presentation: cephalic, lowerright Placenta: Placental site: posterior, previously documented away fromcervical os Umbilical cord: Cord vessels: 3 vessel cord. Insertion site: velamentousinsertion Amniotic fluid: Amount of AF: normal amount. MVP 4.3 cm Fetus B: General Evaluation ----- --------- Cardiac activity Present. FHR 159 bpm. Presentation: cephalic, upperleft Placenta: Placental site: posterior, previously documented away fromcervical os Umbilical cord: Cord vessels: 3 vessel cord. Insertion site: documentedpreviously Amniotic fluid: Amount of AF: normal amount. MVP 4.0 cm Fetus A: Biometry ----- --------- Standard BPD 51.9 mm 21w 5d 11% Hadlock OFD 65.8 mm 22w 1d 27% Tamica HC 189.8 mm 21w 2d 2% Hadlock AC 160.5 mm 21w 1d 5% Hadlock Femur 37.0 mm 21w 5d 11% Hadlock Humerus 32.8 mm 21w 0d 5% Tamica HC / AC 1.18 EFW 424 g 4% Hadlock EFW discordance 18.8 % EFW (lb) 0 lb EFW (oz) 15 oz EFW by: Hadlock ([id number]) Extended Tibia 32.2 mm 21w 6d 16% Tamica Field Appraiser 5.5 mm Head / Face / Neck Cephalic index 0.79 54% Nicolaides Nasal bone: documented previously Extremities / Bony Struc FL / BPD 0.71 FL / HC 0.19 FL / AC 0.23 Other Structures FHR 148 bpm Fetus B: Biometry ----- --------- Standard BPD 50.1 mm 21w 1d 3% Hadlock OFD 66.7 mm 22w 3d 34% Tamica HC 188.1 mm 21w 1d 1% Hadlock Cerebellum tr 22.9 mm 21w 2d 26% Hill AC 179.0 mm 22w 5d 39% Hadlock Femur 40.4 mm 23w 0d 46% Hadlock Humerus 36.0 mm 22w 4d 30% Tamica HC / AC 1.05 EFW 522 g 33% Hadlock EFW discordance 18.8 % EFW (lb) 1 lb EFW (oz) 2 oz EFW by: Hadlock ([id number]) Extended Tibia 32.3 mm 22w 0d 18% Tamica Field Appraiser 5.3 mm CM 5.2 mm 35% Nicolaides Head / Face / Neck Cephalic index 0.75 16% Nicolaides Nasal bone: documented previously Extremities / Bony Struc FL / BPD 0.81 FL / HC 0.21 FL / AC 0.23 Other Structures FHR 159 bpm Fetus A: Anatomy ----- --------- The following structures appear normal: Head/Neck: Cranium. Lateral ventricles. Cavum septi pellucidi.Parenchyma. Face: Lips. Nose. Heart/Thorax: 4-chamber view. Diaphragm. Abdomen: Stomach. Kidneys. Bladder. Small bowel. Large bowel. Spine: Cervical spine. Thoracic spine. Lumbar spine. Sacral spine. Extremities/Skeleton: Right foot. Left foot. Skeleton The following structures were documented previously: Head / Neck Choroid plexus. Midline falx. Cerebellum. Cisterna magna.Vermis. Neck. Nuchal fold. Face Profile. Nasal bone. Maxilla. Mandible. Orbits. Heart / Thorax RVOT view. LVOT view. 3-vessel view. 6-pjgdjw-okokuqk view.Great vessels. Right lung. Left lung. Abdomen Abdom. wall. Cord insertion. Right renal artery. Left renalartery. Genitals. Extremities / Right upper arm. Right forearm. Right hand. Left upper arm.Left forearm. Left hand. Right upper leg. Right lower leg. Left upper leg. Left lower leg. Fetus B: Anatomy ----- --------- The following structures appear normal: Head / Neck Cranium. Lateral ventricles. Cavum septi pellucidi.Cerebellum. Cisterna magna. Parenchyma. Face Profile. Maxilla. Mandible. Heart / Thorax 4-chamber view. RVOT view. LVOT view. 3-vessel view.4-sunezb-gyuzbba view. Great vessels. Diaphragm. Abdomen Stomach. Kidneys. Bladder. Small bowel. Large bowel. Extremities / Right hand. Left hand. Right foot. Left foot. Skeleton The following structures were documented previously: Head / Neck Choroid plexus. Midline falx. Vermis. Neck. Nuchal fold. Face Lips. Nose. Nasal bone. Orbits. Heart / Thorax Right lung. Left lung. Abdomen Abdom. wall. Cord insertion. Right renal artery. Left renalartery. Genitals. Spine Cervical spine. Thoracic spine. Lumbar spine. Sacral spine. Extremities / Right upper arm. Right forearm. Left upper arm. Leftforearm. Right upper leg. Right lower leg. Left Skeleton upper leg. Left lower leg. Fetus A: Echocardiogram ----- --------- Situs documented previously Cardiac position normal Cardiac axis normal Cardiac size normal (approx. 1/3 of thoracic area) Cardiac rhythm regular (normal) 4-chamber view normal LVOT view documented previously RVOT view documented previously 3-vessel view documented previously 9-xtvzva-yagcswx view documented previously Aortic arch view documented previously Ductal arch view documented previously Bicaval view documented previously Interventricular septum documented previously Venous-atrial connections documented previously AV connections documented previously VA connections documented previously Pulmonary veins documented previously Right atrium documented previously Left atrium documented previously Atrial septum documented previously Foramen ovale documented previously Right ventricle documented previously Left ventricle documented previously Ventricular septum documented previously Cross-over gr. arteries documented previously Main PA documented previously Pulmonary arteries documented previously Linear insertion of AV valves no Pericardial effusion no Fetus B: Echocardiogram ----- --------- Situs situs solitus (normal) Cardiac position normal Cardiac axis normal Cardiac size normal (approx. 1/3 of thoracic area) Cardiac rhythm regular (normal) 4-chamber view normal LVOT view normal RVOT view normal 3-vessel view normal 5-njntlz-gkntdll view normal Aortic arch view normal Ductal arch view normal Bicaval view normal Interventricular septum normal Venous-atrial connections normal AV connections normal VA connections normal Pulmonary veins normal Right atrium normal Left atrium normal Atrial septum normal Foramen ovale normal Right ventricle normal Left ventricle normal Ventricular septum normal Cross-over gr. arteries anterior great artery (confirmed to be thepulmonary artery by its branching) which crosses the course of the proximal aorta, indicative ofnormal relationship of the great arteries Main PA the main pulmonary artery can be seen bifurcatinginto the ductus arteriosus and the right pulmonary artery Pulmonary arteries normal Linear insertion of AV valves no Pericardial effusion no Fetus A: Doppler ----- --------- Umbilical Artery: normal PI 1.35 91% Ebbing PS 49.55 cm/s 96% Ebbing TAmax 27.62 cm/s 79% Ebbing MD 12.06 cm/s S / D 4.36 77% Kiran Mid Cerebral Artery: normal PI 1.32 5% Ebbing RI 0.72 28% Bahlmann PS 28.08 cm/s PS 0.97 MoM ED 7.82 cm/s TAmax 15.53 cm/s 82% Ebbing CPR PI 0.98 3% Ebbing Fetus B: Doppler ----- --------- Umbilical Artery: normal PI 1.12 53% Ebbing PS -42.21 cm/s TAmax -26.66 cm/s MD -12.97 cm/s S / D 3.38 35% Kiran Mid Cerebral Artery: normal PI 1.90 64% Ebbing RI 0.78 59% Bahlmann PS 24.82 cm/s PS 0.85 MoM ED 5.36 cm/s TAmax 12.69 cm/s 47% Ebbing CPR PI 1.70 57% Ebbing Maternal Structures ----- --------- Uterus Visualized Cervix Visualized Approach - Transvaginal: Cervical length 3.78 cm Right Ovary Not visualized Left Ovary Not visualized Cul de Sac Suboptimal. No free fluid visualized Impression ----- --------- Monochorionic-diamniotic twin . Twin A is cephalic, lower right. EFW is 424 g at the 4%, which is consistent with FGR. anatomic survey and echocardiogram did not reveal sonographicevidence of any gross structural abnormalities. The HC measures less than the 3rd percentile for the gestational agebut reference biometric measurement within 2 SD of the mean (Yonyak and colleagues, 1984). Amniotic fluid MVP measures 4.3 cm. bladder and stomach are visualized. Umbilical artery S/D ratio in normal range. MCA PSV is in the unremarkable range for the evaluation of anemia. Ductus venosus demonstrates continuous forward flow. Twin B is cephalic, upper left. EFW is 522 g at the 33%. anatomic survey and echocardiogram did not reveal sonographicevidence of any gross structural abnormalities. The HC measures less than the 3rd percentile for the gestational agebut reference biometric measurement within 2 SD of the mean (Yonyak and colleagues, 1984). Amniotic fluid MVP measures 4 cm. bladder and stomach are visualized. Umbilical artery S/D ratio in normal range. MCA PSV is in the unremarkable range for the evaluation of anemia. Ductus venosus demonstrates continuous forward flow. Velamentous cord insertion at the tip of the placenta appearing likemarginal cord insertion. Previously documented vasa previa is now resolved measuring 3.3 cm away from the cervix. Recommendations ----- --------- Please see [facility] documentation from today. The patient is scheduled for weekly Umbilical, MCA, and Ductus Dopplers. The patient is scheduled in three weeks for Growth ultrasound andDopplers. Subsequent follow up or other follow up as clinically determined byprimary OB provider unless otherwise specified by [facility]. Results forwarded to ordering provider so they can follow up with thepatient as necessary. us Jefferson Anders MD [facility] ORDERABLES Final Resul t documented in this encounter Visit Diagnoses Diagnosis Encounter for other screening follow-up Monochorionic diamniotic twin gestation in second trimester documented in this encounter Care Teams Commercial Attache Relationship Specialty Start Date End Date Belén Rooney MD [address] [place] [phone] PCP - General Family Medicine 09/29/18 documented as of this encounter
--- OUTSIDE RECORDS SUMMARY | 2024-11-15 14:30 | XMS_ITS | Encounter Summary ---
[facility] Organization [facility] tem Address [id number] [address] [place] [address] Care Team Providers Care Qa Developer Name Role Phone Belén Rooney MD Primary Care Provider [phone] Reason for Visit * Reason Comments Monochorionic Diamniotic Twin Growth Restriction Twin A Vasa Previa Encounter Details Date Type Department Care Team (Latest Contact Info) Description 11/15/2024 2:30 PM EDT Office Visit Maternal- Medicine at [facility] [address] [place] [phone] Jefferson Anders MD [address] [facility] [address] [place] [address] Monochorionic diamniotic twin gestation in second trimester (Primary Dx) Social History Tobacco Use Types Packs/Day Years Used Date Smoking Tobacco: Never Smokeless Tobacco: Never Tobacco Cessation:Counseling Given: Not Answered Alcohol Use Standard Drinks/Week Comments Not Currently 0 (1 standard drink = 0.6 oz pur e alcohol) [facility] Utilities Answer Date Recorded In the past 12 months has th e electric, gas, oil, or water company [...] on file documented as of this encounter Last Filed Vital Signs Vital Sign Reading Time Taken Comments Blood Pressure 108/70 11/15/2024 1:38 PM EDT Pulse 72 11/15/2024 1:38 PM EDT Temperature - - Respiratory Rate - - Oxygen Saturation - - Inhaled Oxygen Concentration - - Weight 66.9 kg (147 lb 6.4 oz) 11/15/2024 1:38 P M EDT Height 157.5 cm (5' 2.01 ) 11/15/2024 1:38 PM ED T Body Mass Index 26.95 11/15/2024 1:38 PM EDT documented in this encounter Progress Notes * Geeta Jacobs RN - 11/15/2024 2:30 PM EDT Headache/epigastric pain/blurry vision/swelling? No Cramping/contractions? No Spotting or vaginal bleeding? No Loss or gush of fluid like your water may have broken? No Recent ER visits or hospitalizations? 11/07/24 TTH for contractions Any concerns that you would like me to mention to the provider today? No ' * Jefferson Anders MD - 11/15/2024 2:30 PM EDT REASON FOR OFFICE VISIT: Monochorionic diamniotic twins HISTORY OF PRESENT ILLNESS: Alia Pedro is a pleasant 29 y.o. G 1 P0 at 22w6d due on Estimated Date of Delivery: 03/15/25 . has been complicated with Spontaneously conceiving monochorionic diamniotic twin gestation without evidence of hair-kn-opld transfusion syndrome. 2. Marginal cord insertion in twin a with growth restriction in twin A. Normal Doppler studies. 3. Suspected velamentous cord insertion within 2 cm from the internal os mimicking vasa previa ruled out. Placental cord insertion more than 3 cm away from the cervix. Placenta also 3 cm away from the cervix. Marginal cord insertion seen on transvaginal ultrasound. Currently the patient has no complaints. The patient denies nausea, vomiting, abdominal pain, vaginal bleeding, SOB or chest pain. Patient Active Problem List Diagnosis Trigeminal neuralgia uterine contractions Monochorionic diamniotic twin gestation in second trimester ALLERGIES: No Known Allergies CURRENT MEDICATIONS: Current Outpatient Medications: aspirin 81 mg, Take 1 tablet (81 mg total) by mouth in the morning., Disp: , Rfl: docusate sodium (COLACE) 100 mg capsule, Take 1 capsule (100 mg total) by mouth in the morning., Disp: , Rfl: no115/iron/folic acid ( 19 ORAL), Take 1 tablet by mouth in the morning., Disp: , Rfl: busPIRone (BUSPAR) 5 mg tablet, Take 1 tablet (5 mg total) by mouth in the morning and 1 tablet (5 mg total) before bedtime., Disp: , Rfl: cyproheptadine (PERIACTIN) 4 mg tablet, , Disp: , Rfl: doxepin (SINEquan) 10 mg capsule, Take 1 capsule (10 mg total) by mouth in the morning and 1 capsule (10 mg total) before bedtime. (Patient not taking: Reported on 04/13/2024), Disp: , Rfl: escitalopram (LEXAPRO) 20 mg tablet, Take 1 tablet (20 mg total) by mouth in the morning., Disp: , Rfl: magnesium oxide (MAG-OX) 400 mg tablet, , Disp: , Rfl: ondansetron (ZOFRAN) 4 mg tablet, Take 4 mg by mouth every 8 (eight) hours as needed for nausea or vomiting. (Patient not taking: Reported on 04/13/2024), Disp: , Rfl: PIRMELLA 1-35 mg-mcg per tablet, , Disp: , Rfl: Past Medical History: Diagnosis Date Depression Migraines Trigeminal neuralgia REVIEW OF SYSTEMS: Head and Neck: Negative for any dizziness and headaches. Cardiovascular and Respiratory System: Denies any chest pain, shortness of breath, and coughing. Abdominal and System: Denies any abdominal pain, nausea, vomiting, vaginal bleeding, and vaginal discharge REVIEW OF ULTRASOUND. Pertinent Ultrasound findings are see report. PHYSICAL EXAMINATION: BP 108/70 Pulse 72 Ht 157.5 cm (5' 2.01 ) Wt 66.9 kg (147 lb 6.4 oz) LMP 06/08/2024 BMI 26.95 kg/m² . Gravid abdomen, Respirations not labored. Normal gait well oriented in time place and person. RECOMMENDATION: 1. Pelvic rest discontinued. Vasa previa ruled out. 2. Weekly Doppler studies based on growth restriction. 3. Timing of delivery is contingent with growth restriction and twins and will be discussed later in the . 4. Will continue follow patient. 5. Follow-up office visit with growth ultrasound and 7-8 weeks at [facility]. 6. Initiate outpatient testing form once a week NST and NATHAN at 28 weeks gestation at her local Ob office. Thank you for allowing me to participate in [facility]. If there are any questions, please do not hesitate to call me. Sincerely, JEFFERSON ANDERS MD documented in this encounter Plan of Treatment Upcoming Encounters Date Type Department Care Team (Late st Contact Info) Description 11/29/2024 3:00 PM EDT Appointment [facility] [address] [place] [address] 12/06/2024 8:00 AM EDT Appointment [facility] - [facility] [address] [place] [address] 01/10/2025 8:30 AM EDT Office Visit Maternal- Medicine at [facility] [address] [place] [phone] Jefferson Anders MD [address] [facility], [address] [place] [address] documented as of this encounter Visit Diagnoses Diagnosis Monochorionic diamniotic twin gestation in second trimester- Primary documented in this encounter Care Teams Qa Developer Relationship Specialty Start Date End Date Belén Rooney MD [address] [place] [phone] PCP - General Family Medicine 09/29/18 documented as of this encounter
--- OUTSIDE RECORDS SUMMARY | 2024-11-16 14:20 | XMS_ITS | Encounter Summary ---
Author Organization [facility] Address [address] [place] [address] Care Team Providers Care Button Clamper Name Role Phone Marlon Laguna MD Primary Care Provider [phone] Saul Eugene DO Unavailable Reason for Visit * Reason Comments Routine Visit Encounter Details Date Type Department Care Team (Late st Contact Info) Description 11/16/2024 2:20 PM EDT Routine [facility] [address] [place] [address] Saul Eugene [address] [place], [facility] Second trimester ([facility]); 23 weeks gestation of ([facility]); Diabetes mellitus screening; Monochorionic diamniotic twin gestation in second trimester ([facility]) Social History Tobacco Use Types Packs/Day Years Used Date Smoking Tobacco: Never Alcohol Use Standard Drinks/Week Comments Not Currently 0 (1 standard drink = 0.6 oz pure alcohol) Occaisonal alcohol use Caffeine:1-2 cups per day Estimated Date of Delivery Comme nts Yes 03/15/2025 Based on last me nstrual period of 06/08/2024 Sex and Gender Information Value Date Recorded Sex Assigned at Female 02/10/2023 2:43 PM EDT Legal Sex Female 7:34 PM EDT Gender Identity Female 02/10/2023 2:43 PM EDT Sexual Orientation Straight 02/10/2023 2: 43 PM EDT documented as of this encounter Last Filed Vital Signs Vital Sign Reading Time Taken Comments Blood Pressure 108/70 11/16/2024 2:28 PM EDT Pulse - - Temperature - - Respiratory Rate - - Oxygen Saturation - - Inhaled Oxygen Concentration - - Weight 67 kg (147 lb 12.8 oz) 11/16/2024 2:28 PM EDT Height - - Body Mass Index 27.03 02/10/2023 11:39 AM EDT documented in this encounter Plan of Treatment Upcoming Encounters Date Type Department Care Team (Late st Contact Info) Description 11/30/2024 1:00 PM EDT Routine [facility] [address] [place] [phone] Saul Eugene, DO [address] [place] [address] [place] [address] 03/28/2025 2:00 PM EST Office Visit [facility] OB [address] [place], [place] [address] [phone] Saul Eugene, DO [address] [place] [address] Scheduled Orders Name Type Priority Associated Diagnoses Orde r Schedule CBC Lab Routine Diabetes mellitus screening Expected: 11/16/2024 (Approximate), Expires: 11/16/2025 Glucose tolerance, 1 hour Lab Routine Diabetes mellitus screening Expected: 11/16/2024 (Approximate), Expires: 11/16/2025 documented as of this encounter Goals Goal Patient Goal Type Associated Problems Recent Progress Patient-Stated? Author Reminders Care Plan OB Reminders No Open Scheduling, Background documented as of this encounter Visit Diagnoses Diagnosis Second trimester ([facility]) state, incidental 23 weeks gestation of ([facility]) Diabetes mellitus screening Screening for diabetes mellitus Monochorionic diamniotic twin gestation in second trimester ([facility]) documented in this encounter Additional Health Concerns Active Problems Noted Date Diagnosed Date OB Reminders 08/14/2024 documented as of this encounter Care Teams Button Clamper Relationship Specialty Start Date End Date Marlon Laguna MD [address] [place] [address] PCP - General Family Medicine 08/29/23 Saul Eugene DO [address] [place] [address] [place] [address] Referring Physician Obstetrics and Gynecology 08/16/24 documented as of this encounter
--- OUTSIDE RECORDS SUMMARY | 2024-11-22 07:59 | XMS_ITS | Encounter Summary ---
Author Organization [facility] tem Address [id number] [address] [place] [address] Care Team Providers Care Improvement Spec Name Role Phone Belén Rooney MD Primary Care Provider + [phone] Reason for Referral * Diagnostic Imaging (Routine) - Pending Review Specialty Diagnoses / Procedures Referred By Contac t Referred To Contact Maternal and Medicine Diagnoses Monochorionic diamniotic twin gestation in second trimester Procedures US [facility] with or without consult Benjamin Subramanian MD [address] [address] Phone: tel: fax: Maternal- Medicine at [address] [address] Phone: tel: fax: Referral ID Status Reason Start Date Expiration Date V isits Requested Visits Authorized [id number] Pending Review 10/13/2024 10/13/2025 1 1 Reason for Visit * Diagnostic Imaging (Routine) - Pending Review Specialty Diagnoses / Procedures Referred By Contac t Referred To Contact Maternal and Medicine Diagnoses Monochorionic diamniotic twin gestation in second trimester Procedures US [facility] with or without consult Benjamin Subramanian MD [address] [place] [address] Phone: tel: fax: Maternal- Medicine at [facility] [address] [facility] [place] [address] Phone: tel: fax: Referral ID Status Reason Start Date Expiration Date V isits Requested Visits Authorized [id number] Pending Review 10/13/2024 10/13/2025 1 1 Encounter Details Date Type Department Care Team (Latest Contact Info) Description 11/22/2024 7:59 AM EDT - 11/22/2024 11:59 PM EDT Hospital Encounter [facility] US Imaging [address] [place] [address] Monochorionic diamniotic twin gestation in second trimester Discharge Disposition: Home Social History Tobacco Use Types Packs/Day Years Used Date Smoking Tobacco: Never Smokeless Tobacco: Never Alcohol Use Standard Drinks/Week Comments Not Currently 0 (1 standard drink = 0.6 oz pur e alcohol) [facility]ARE [facility] Utilities Answer Date Recorded In [...] Info) Description 11/29/2024 3:00 PM EDT Appointment [facility] US Imaging [address] [place] [address] 12/06/2024 8:00 AM EDT Appointment [facility] US Imaging [address] [place] [phone] 01/10/2025 8:30 AM EDT Office Visit Maternal- Medicine at [facility] [address] [facility] [place] [phone] Jefferson Nava MD [address] [facility] [address] [place], [place] [phone] documented as of this encounter Procedures Procedure Name Priority Date/Time Associated Diagnosis Comments US MFM LMTD OB, 1 OR MORE FETUS Routine 11/22/2024 9:53 AM EDT Monochorionic diamniotic twin gestation in second trimester documented in this encounter Results * US MFM LMTD OB, 1 OR MORE FETUS (11/22/2024 9:53 AM EDT) Anatomical Region Laterality Modality OB-SEWER CONTRACTOR Ultrasound 11/22/2024 8:10 AM EDT Narrative 11/22/2024 10:59 AM EDT NAME: ALIVIA HARTMAN : 1995 SEX: F Accession Number: [id number] ORDERING PHYSICIAN: BNEJAMIN SUBRAMANIAN REFERRING PHYSICIAN: VIC MCKEON Coding ----- --------- Procedures 19771: Limited OB / NATHAN, 1 or More Fetuses 35002: Doppler velocimetry, ; umbilical artery. 2 04677: Doppler velocimetry, ; middle cerebral artery. 2 32048: Doppler Ductus Venosus. 2 Indication ----- --------- [place]-Di twin , IUGR-Poor growth-twin A, Pre term contractions, Supervision of high risk (elevated Doppler - Twin B) History ----- --------- OB History 1. Para 0 [id number] Maternal Assessment ----- --------- Physical Exam Height 157 cm, 5 ft 2 in. Weight 67 kg, 147 lb. Initial weight 64 kg, 141 lb. BMI 26.89 kg/m . Initial BMI 25.79 kg/m . Weight gain 3 kg, 6 lb Method ----- --------- Transabdominal ultrasound examination ----- --------- Twin . Number of fetuses: 2. Monochorionic-diamniotic Dating ----- --------- LMP on: 06/08/2024 GA by LMP 23 w + 6 d VICTOR M by LMP: 03/15/2025 Assigned: based on the LMP, selected on 09/27/2024 Assigned GA 23 w + 6 d Assigned VICTOR M: 03/15/2025 Fetus A: General Evaluation ----- --------- Cardiac activity Present. FHR 142 bpm. Presentation: lower, cephalic right Placenta: Placental site: posterior, previously documented away from cervical os Umbilical cord: Cord vessels: 3 vessel cord Amniotic fluid: Amount of AF: normal amount. MVP 3.9 cm Fetus B: General Evaluation ----- --------- Cardiac activity Present. FHR 140 bpm. Presentation: upper, cephalic left Placenta: Placental site: anterior, previously documented away from cervical os Umbilical cord: Cord vessels: 3 vessel cord Amniotic fluid: Amount of AF: normal amount. MVP 4.3 cm Fetus A: Anatomy ----- --------- The following structures appear normal: Face: Lips. Nose. Heart/Thorax: 4-chamber view. RVOT view. LVOT view. 3-vessel view. 2-kxrdnt-sqapqpv view. Situs. Bicaval view. Cardiac position. Cardiac axis. Cardiac size. Cardiac rhythm. Diaphragm. Abdomen: Stomach. Bladder. Fetus B: Anatomy ----- --------- The following structures appear normal: Face Lips. Heart / Thorax Cardiac rhythm. Abdomen Stomach. Bladder. Fetus A: Doppler ----- --------- Umbilical Artery: normal PI 1.35 93% Ebbing PS 33.70 cm/s 14% Ebbing TAmax -21.33 cm/s MD -9.87 cm/s S / D 4.10 74% Kiran Mid Cerebral Artery: normal PI 1.34 4% Ebbing RI 0.76 39% Bahlmann PS 29.59 cm/s PS 0.97 MoM ED 7.21 cm/s TAmax 16.69 cm/s 87% Ebbing CPR PI 0.99 2% Ebbing Ductus Venosus: normal Fetus B: Doppler ----- --------- Umbilical Artery: abnormal PI 1.42 97% Ebbing PS 62.41 cm/s >99% Ebbing TAmax 37.38 cm/s >99% Ebbing MD 14.63 cm/s S / D 5.13 96% Kiran Mid Cerebral Artery: normal PI 1.65 25% Ebbing RI 0.80 64% Bahlmann PS 28.75 cm/s PS 0.94 MoM ED 5.64 cm/s TAmax 14.00 cm/s 59% Ebbing CPR PI 1.16 5% Ebbing Ductus Venosus: normal Maternal Structures ----- --------- Uterus Visualized Cervix Suboptimal Approach - Transabdominal Right Ovary Not visualized Left Ovary Not examined Cul de Sac Suboptimal Impression ----- --------- Monochorionic-diamniotic twin . Twin A is lower, cephalic right with known FGR. Amniotic fluid MVP measures 3.9 cm. bladder and stomach are visualized. Umbilical artery S/D ratio in normal range. MCA PSV 0.97 MoM is in the unremarkable range for the evaluation of anemia. Ductus venosus demonstrates continuous forward flow. Velamentous cord insertion was not evaluated on today's exam. Twin B is upper, cephalic left. Amniotic fluid MVP measures 4.3 cm. bladder and stomach are visualized. Umbilical artery S/D ratio is measuring greater than the 95 percentile. MCA PSV 0.94 MoM is in the unremarkable range for the evaluation of anemia. Ductus venosus demonstrates continuous forward flow. There is no evidence of twin-twin transfusion syndrome or twin anemia polycythemia sequence. Recommendations ----- --------- Findings and limitations of sonogram explained to patient. The patient is scheduled for weekly for Dopplers and MVP. TTTS surveillance follow up every 2 weeks with growth of each fetus every 4 weeks. The patient is scheduled in two weeks for follow up growth ultrasound and Dopplers. Subsequent follow up or other follow up as clinically determined by primary OB provider unless otherwise specified by [facility]. Results forwarded to ordering provider so they can follow up with the patient as necessary. Procedure Note Gracy Woodall MD - 11/22/2024 NAME: ALIVIA HARTMAN : 1995 SEX: F Accession Number: [id number] ORDERING PHYSICIAN: BENJAMIN SUBRAMANIAN REFERRING PHYSICIAN: VIC MCKEON Coding ----- --------- Procedures 83512: Limited OB / NATHAN, 1 or More Fetuses 22904: Doppler velocimetry, ; umbilical artery. 2 39829: Doppler velocimetry, ; middle cerebral artery. 2 60142: Doppler Ductus Venosus. 2 Indication ----- --------- [place]-Di twin , IUGR-Poor growth-twin A, Pre termcontractions, Supervision of high risk (elevated Doppler - Twin B) History ----- --------- OB History 1. Para 0 [id number] Maternal Assessment ----- --------- Physical Exam Height 157 cm, 5 ft 2 in. Weight 67 kg, 147 lb. Initialweight 64 kg, 141 lb. BMI 26.89 kg/m . Initial BMI 25.79 kg/m . Weight gain 3 kg, 6 lb Method ----- --------- Transabdominal ultrasound examination ----- --------- Twin . Number of fetuses: 2. Monochorionic-diamniotic Dating ----- --------- LMP on: 06/08/2024 GA by LMP 23 w + 6 d VICTOR M by LMP: 03/15/2025 Assigned: based on the LMP, selected on 09/27/2024 Assigned GA 23 w + 6 d Assigned VICTOR M: 03/15/2025 Fetus A: General Evaluation ----- --------- Cardiac activity Present. FHR 142 bpm. Presentation: lower, cephalicright Placenta: Placental site: posterior, previously documented away fromcervical os Umbilical cord: Cord vessels: 3 vessel cord Amniotic fluid: Amount of AF: normal amount. MVP 3.9 cm Fetus B: General Evaluation ----- --------- Cardiac activity Present. FHR 140 bpm. Presentation: upper, cephalicleft Placenta: Placental site: anterior, previously documented away fromcervical os Umbilical cord: Cord vessels: 3 vessel cord Amniotic fluid: Amount of AF: normal amount. MVP 4.3 cm Fetus A: Anatomy ----- --------- The following structures appear normal: Face: Lips. Nose. Heart/Thorax: 4-chamber view. RVOT view. LVOT view. 3-vessel view.5-lnufrm-fwbalue view. Situs. Bicaval view. Cardiac position. Cardiac axis. Cardiac size. Cardiac rhythm. Diaphragm. Abdomen: Stomach. Bladder. Fetus B: Anatomy ----- --------- The following structures appear normal: Face Lips. Heart / Thorax Cardiac rhythm. Abdomen Stomach. Bladder. Fetus A: Doppler ----- --------- Umbilical Artery: normal PI 1.35 93% Ebbing PS 33.70 cm/s 14% Ebbing TAmax -21.33 cm/s MD -9.87 cm/s S / D 4.10 74% Kiran Mid Cerebral Artery: normal PI 1.34 4% Ebbing RI 0.76 39% Bahlmann PS 29.59 cm/s PS 0.97 MoM ED 7.21 cm/s TAmax 16.69 cm/s 87% Ebbing CPR PI 0.99 2% Ebbing Ductus Venosus: normal Fetus B: Doppler ----- --------- Umbilical Artery: abnormal PI 1.42 97% Ebbing PS 62.41 cm/s >99% Ebbing TAmax 37.38 cm/s >99% Ebbing MD 14.63 cm/s S / D 5.13 96% Kiran Mid Cerebral Artery: normal PI 1.65 25% Ebbing RI 0.80 64% Bahlmann PS 28.75 cm/s PS 0.94 MoM ED 5.64 cm/s TAmax 14.00 cm/s 59% Ebbing CPR PI 1.16 5% Ebbing Ductus Venosus: normal Maternal Structures ----- --------- Uterus Visualized Cervix Suboptimal Approach - Transabdominal Right Ovary Not visualized Left Ovary Not examined Cul de Sac Suboptimal Impression ----- --------- Monochorionic-diamniotic twin . Twin A is lower, cephalic right with known FGR. Amniotic fluid MVP measures 3.9 cm. bladder and stomach are visualized. Umbilical artery S/D ratio in normal range. MCA PSV 0.97 MoM is in the unremarkable range for the evaluation of fetalanemia. Ductus venosus demonstrates continuous forward flow. Velamentous cord insertion was not evaluated on today's exam. Twin B is upper, cephalic left. Amniotic fluid MVP measures 4.3 cm. bladder and stomach are visualized. Umbilical artery S/D ratio is measuring greater than the 95 percentile. MCA PSV 0.94 MoM is in the unremarkable range for the evaluation of fetalanemia. Ductus venosus demonstrates continuous forward flow. There is no evidence of twin-twin transfusion syndrome or twin anemiapolycythemia sequence. Recommendations ----- --------- Findings and limitations of sonogram explained to patient. The patient is scheduled for weekly for Dopplers and MVP. TTTS surveillance follow up every 2 weeks with growth of each fetus every4 weeks. The patient is scheduled in two weeks for follow up growth ultrasound andDopplers. Subsequent follow up or other follow up as clinically determined byprimary OB provider unless otherwise specified by MFM. Results forwarded to ordering provider so they can follow up with thepatient as necessary. us Benjamin Subramanian MD [facility] ORDERABLES Final Re sult documented in this encounter Visit Diagnoses Diagnosis Monochorionic diamniotic twin gestation in second trimester documented in this encounter Care Teams Improvement Spec Relationship Specialty Start Date End Date Belén Rooney MD [address] [place] [phone] PCP - General Family Medicine 09/29/18 documented as of this encounter
--- OUTSIDE RECORDS SUMMARY | 2024-11-24 12:12 | XMS_ITS | Encounter Summary ---
Author Organization [facility] Address [address] [place] [address] Care Team Providers Care Aerial Installer Name Role Phone Marlon Laguna MD Primary Care Provider [phone] Saul Eugene DO Unavailable Encounter Details Date Type Department Care Team (Late st Contact Info) Description 08/16/2024 Abstract [facility] OB [address] [place] [phone] Saul Eugene [address] [place], [place] [phone] Social History Tobacco Use Types Packs/Day Years [...] PM EDT documented as of this encounter Plan of Treatment Upcoming Encounters Date Type Department Care Team (Late st Contact Info) Description 11/30/2024 1:00 PM EDT Routine [facility] OB [address] [place] [phone] Saul Eugene, DO [address] [place] [address] 03/28/2025 2:00 PM EST Office Visit [facility] [address] [facility] [address] Saul Eugene, [address] [place] [address] documented as of this encounter Goals Goal Patient Goal Type Associated Problems Recent Progress Patient-Stated? Author Reminders Care Plan OB Reminders No Open Scheduling, Background documented as of this encounter Visit Diagnoses Not on filedocumented in this encounter Additional Health Concerns Active Problems Noted Date Diagnosed Date OB Reminders 08/14/2024 documented as of this encounter Care Teams Aerial Installer Relationship Specialty Start Date End Date Marlon Laguna MD [address] [facility] [place] [address] PCP - General Family Medicine 08/29/23 Saul Eugene DO [address] [place] [address] Referring Physician Obstetrics and Gynecology 08/16/24 documented as of this encounter
--- OUTSIDE RECORDS SUMMARY | 2024-11-24 12:12 | XMS_ITS | Encounter Summary ---
Author Organization [facility] Address [address] [place] [address] Care Team Providers Care Rehab Physician Name Role Phone Marlon Laguna MD Primary Care Provider [phone] Saul Eugene DO Unavailable Encounter Details Date Type Department Care Team (Late st Contact Info) Description 08/16/2024 Abstract [facility] OB [address] [place] [phone] Saul Eugene [address] [place], [place] [phone] Social History Tobacco Use Types Packs/Day Years [...] Description 11/30/2024 1:00 PM EDT Routine [facility] OB [address] [place] [phone] Saul Eugene, DO [address] [place] [address] 03/28/2025 2:00 PM EST Office Visit [facility] [address] [facility] [place] [address] Saul Eugene, [address] [address] documented as of this encounter Goals Goal Patient Goal Type Associated Problems Recent Progress Patient-Stated? Author Reminders Care Plan OB Reminders No Open Scheduling, Background documented as of this encounter Visit Diagnoses Not on filedocumented in this encounter Additional Health Concerns Active Problems Noted Date Diagnosed Date OB Reminders 08/14/2024 documented as of this encounter Care Teams Rehab Physician Relationship Specialty Start Date End Date Marlon Laguna MD [address] [facility] [place] [phone] PCP - General Family Medicine 08/29/23 Saul Eugene DO [address] [place] [address] Referring Physician Obstetrics and Gynecology 08/16/24 documented as of this encounter
--- OUTSIDE RECORDS SUMMARY | 2024-11-24 12:12 | XMS_ITS | Encounter Summary ---
Author Organization [employer] tem Address [id number] [address] [place] [address] Care Team Providers Care Machine Stone Polisher Name Role Phone Belén Rooney MD Primary Care Provider [phone] Encounter Details Date Type Department Care Team (Latest Contact Info) Description 11/13/2024 Travel Social History Tobacco Use Types Packs/Day Years Used Date Smoking Tobacco: Never Smokeless Tobacco: Never Alcohol Use Standard Drinks/Week Comments Not Currently 0 (1 standard drink = 0.6 oz pur e alcohol) RARE [facility] Utilities Answer Date Recorded In [...] on file documented as of this encounter Plan of Treatment Upcoming Encounters Date Type Department Care Team (Late st Contact Info) Description 11/29/2024 3:00 PM EDT Appointment [facility] US Imaging [address] [place] [address] 12/06/2024 8:00 AM EDT Appointment [facility] US Imaging [address] [place] [address] 01/10/2025 8:30 AM EDT Office Visit Maternal- Medicine at [facility] [address] [place] [address] Jefferson Nava MD [address] [facility] [address] [place] [address] documented as of this encounter Visit Diagnoses Not on filedocumented in this encounter Care Teams Machine Stone Polisher Relationship Specialty Start Date End Date Belén Rooney MD [address] [place] [phone] PCP - General Family Medicine 09/29/18 documented as of this encounter
--- OUTSIDE RECORDS SUMMARY | 2024-11-24 12:12 | XMS_ITS | Encounter Summary ---
Author Organization [email or web address] tem Address [id number] [address] [place] [address] Care Team Providers Care Bookkeepers Supervisor Name Role Phone Belén Rooney MD Primary Care Provider Encounter Details Date Type Department Care Team (Latest Contact Info) Description 11/20/2024 Travel Social History Tobacco Use Types Packs/Day Years Used Date Smoking Tobacco: Never Smokeless Tobacco: Never Alcohol Use Standard Drinks/Week Comments Not Currently 0 (1 standard drink = 0.6 oz pur e alcohol) [facility]ARE [facility] Utilities Answer Date Recorded In the past [...] Info) Description 11/29/2024 3:00 PM EDT Appointment [facility] US Imaging [address] [place] [address] 12/06/2024 8:00 AM EDT Appointment [facility] US Imaging [address] [place] [address] 01/10/2025 8:30 AM EDT Office Visit Maternal- Medicine at [facility] [address] [place] [address] Jefferson Nava MD [address] [facility], [address] [place] [address] documented as of this encounter Visit Diagnoses Not on filedocumented in this encounter Care Teams Bookkeepers Supervisor Relationship Specialty Start Date End Date Belén Rooney MD [address] [place] [phone] PCP - General Family Medicine 09/29/18 documented as of this encounter
--- OUTSIDE RECORDS SUMMARY | 2024-11-24 12:12 | XMS_ITS | Encounter Summary ---
Author Organization [employer] [facility] tem Address [id number] [address] [place] [address] Care Team Providers Care Overhauler Helper Name Role Phone Belén Rooney MD Primary Care Provider [phone] Reason for Referral * Diagnostic Imaging (Routine) - Pending Review Specialty Diagnoses / Procedures Referred By Burt sellers Referred To Contact Maternal and Medicine Diagnoses Monochorionic diamniotic twin gestation in second trimester Procedures US [facility] with or without consult Benjamin Subramanian MD [address] [address] Phone: tel: fax: Maternal- Medicine at [facility] [address] [place] [address] Phone: tel: fax: Referral ID Status Reason Start Date Expiration Date V isits Requested Visits Authorized [id number] Pending Review 10/13/2024 10/13/2025 1 1 Encounter Details Date Type Department Care Team (Late st Contact Info) Description 10/13/2024 Orders Only Maternal- Medicine at [facility] [address] [place] [phone] Brooklyn Campos RN Monochorionic diamniotic twin gestation in second trimester (Primary Dx) Social History Tobacco Use Types Packs/Day Years Used Date Smoking Tobacco: Never Smokeless Tobacco: Never Alcohol Use Standard Drinks/Week Comments Not Currently 0 (1 standard drink = 0.6 oz pur e alcohol) [facility] Child[facility] Answer Date Recorded Childcare Unknown 11/04/2018 Employment Answer Date Recorded Employment Unknown 11/04/2018 Hunger Screening Answer Date Recorded Within the past 12 months we worried whether our food would run out before we got money to buy more. Never True 09/27/2024 Within the past 12 months th e food we bought just didn't last and we didn't have money to get more. Never True 09/27/2024 Purpose - Life Answer Date Recorded Purpose [...] Info) Description 11/29/2024 3:00 PM EDT Appointment [facility] US Imaging [address] [place] [address] 12/06/2024 8:00 AM EDT Appointment [facility] US Imaging [address] [place] [address] 01/10/2025 8:30 AM EDT Office Visit Maternal- Medicine at [facility] [address] [place] [address] Jefferson Nava MD [address] [place] [address] documented as of this encounter Results * US MFM LMTD OB, 1 OR MORE FETUS (11/22/2024 9:53 AM EDT) Anatomical Region Laterality Modality OB-CONCRETE ENGINEER Ultrasound 11/22/2024 8:10 AM EDT Narrative 11/22/2024 10:59 AM EDT NAME: ALIVIA HARTMAN : 1995 SEX: F Accession Number: [id number] ORDERING PHYSICIAN: BENJAMIN SUBRAMANIAN REFERRING PHYSICIAN: VIC MCKEON Coding ----- --------- Procedures 73337: Limited OB / NATHAN, 1 or More Fetuses 38614: Doppler velocimetry, ; umbilical artery. 2 99133: Doppler velocimetry, ; middle cerebral artery. 2 53174: Doppler Ductus Venosus. 2 Indication ----- --------- [place]-Di twin , IUGR-Poor growth-twin A, Pre term contractions, Supervision of high risk (elevated Doppler - Twin B) History ----- --------- OB History 1. Para 0 [id number] Maternal Assessment ----- --------- Physical Exam Height [...] view. RVOT view. LVOT view. 3-vessel view. 7-aukxwd-bzfskgh view. Situs. Bicaval view. Cardiac position. Cardiac [...] PI 1.34 4% Ebbing RI 0.76 39% [facility] PS 29.59 cm/s PS 0.97 MoM ED [...] primary OB provider unless otherwise specified by MFM. Results forwarded to ordering provider so they can follow up with the patient as necessary. Procedure Note Gracy Woodall MD - 11/22/2024 NAME: ALIVIA HARTMAN : 1995 SEX: F Accession Number: [id number] ORDERING PHYSICIAN: BENJAMIN SUBRAMANIAN REFERRING PHYSICIAN: VIC MCKEON Coding ----- --------- Procedures 46095: Limited OB / NATHAN, 1 or More Fetuses 79847: Doppler velocimetry, ; umbilical artery. 2 12144: Doppler velocimetry, ; middle cerebral artery. 2 12441: Doppler Ductus Venosus. 2 Indication ----- --------- [place]-Di twin , IUGR-Poor growth-twin A, Pre termcontractions, Supervision of high risk (elevated Doppler - Twin B) History ----- --------- OB History 1. Para 0 [id number] Maternal Assessment ----- --------- Physical Exam Height [...] 4-chamber view. RVOT view. LVOT view. 3-vessel view.4-uaghiy-ccgrndp view. Situs. Bicaval view. Cardiac position. Cardiac [...] byprimary OB provider unless otherwise specified by [facility]. Results forwarded to ordering provider so they can follow up with thepatient as necessary. us Benjamin Subramanian MD [facility] ORDERABLES Final Re sult documented in this encounter Visit Diagnoses Diagnosis Monochorionic diamniotic twin gestation in second trimester- Primary Monochorionic diamniotic twin gestation in second trimester documented in this encounter Care Teams Overhauler Helper Relationship Specialty Start Date End Date Belén Rooney MD [address] [place] [phone] PCP - General Family Medicine 09/29/18 documented as of this encounter
--- OUTSIDE RECORDS SUMMARY | 2024-11-24 12:12 | XMS_ITS | Encounter Summary ---
Author Organization [facility] [employer] [facility] tem Address [facility][id number] [address] [place] [address] Care Team Providers Care Forming Machine Upkeep Mechanic Helper Name Role Phone Belén Rooney MD Primary Care Provider [phone] Encounter Details Date Type Department Care Team (Late st Contact Info) Description 11/23/2024 Orders Only Maternal- Medicine at [facility] [address] [facility] [place] [phone] Susan Beltran LPN Monochorionic diamniotic twin gestation in second trimester (Primary Dx); Intrauterine growth restriction affecting antepartum care of mother in second trimester, fetus 1; Velamentous insertion of umbilical cord in second trimester; Vasa previa, fetus 1 of multiple gestation; Palpitations Social History Tobacco Use Types Packs/Day Years Used Date Smoking Tobacco: Never Smokeless Tobacco: Never Alcohol Use Standard Drinks/Week Comments Not Currently 0 (1 standard drink = 0.6 oz pur e alcohol) [facility] Utilities Answer Date Recorded In the past 12 months has [employer] electric, gas, oil, or water company threatened [...] Info) Description 11/29/2024 3:00 PM EDT Appointment [facility] Imaging [address] [place] [address] 12/06/2024 8:00 AM EDT Appointment [facility] [address] [facility] [place] [place] [address] 01/10/2025 8:30 AM EDT Office Visit Maternal- Medicine at [facility] [address] [place] [address] Jefferson Nava MD [address], [address] [place] [address] documented as of this encounter Results * Unlisted Lab Test (11/12/2024) Free Cell Dna LOW RISK MANUALLY TRANSCRIBED RESULTS Blood (Arm) 11/12/2024 us Gracy Woodall MD LAB BLOOD ORDERABLES Final Resul t MANUALLY TRANSCRIBED RESULTS documented in this encounter Visit Diagnoses Diagnosis Monochorionic diamniotic twin gestation in second trimester- Primary Intrauterine growth restriction affecting antepartum care of mother in second trimester, fetus 1 Velamentous insertion of umbilical cord in second trimester Vasa previa, fetus 1 of multiple gestation Palpitations documented in this encounter Care Teams Forming Machine Upkeep Mechanic Helper Relationship Specialty Start Date End Date Belén Rooney MD [address] [place] [phone] PCP - General Family Medicine 09/29/18 documented as of this encounter
--- OUTSIDE RECORDS SUMMARY | 2024-11-24 12:12 | XMS_ITS | Encounter Summary ---
Author Organization [facility] [employer] [facility] tem Address [facility]-[id number] [address] [place] [address] Care Team Providers Care Building Equipment Operator Name Role Phone Belén Rooney MD Primary Care Provider [phone] Encounter Details Date Type Department Care Team (Late st Contact Info) Description 11/23/2024 Orders Only Maternal- Medicine at [facility] [address] [facility] [place] [phone] Susan Beltran LPN Monochorionic diamniotic twin gestation in second trimester; Intrauterine growth restriction affecting antepartum care of mother in second trimester, fetus 1; Velamentous insertion of umbilical cord in second trimester; Vasa previa, fetus 1 of multiple gestation; Palpitations Social History Tobacco Use Types Packs/Day Years Used Date Smoking Tobacco: Never Smokeless Tobacco: Never Alcohol Use Standard Drinks/Week Comments Not Currently 0 (1 standard drink = 0.6 oz pur e alcohol) [facility] Utilities Answer Date Recorded In the past 12 months has [employer] electric, gas, oil, or water company threatened [...] Info) Description 11/29/2024 3:00 PM EDT Appointment [facility] US Imaging [address] [place] [address] 12/06/2024 8:00 AM EDT Appointment [facility] US Imaging [address] [place] [address] 01/10/2025 8:30 AM EDT Office Visit Maternal- Medicine at [facility] [address] [place] [address] Jefferson Nava MD [address], [address] [place] [address] documented as of this encounter Procedures Procedure Name Priority Date/Time Associated Diagnosis Comments UNLISTED LAB TEST Routine 11/12/2024 Monochorionic diamniotic twin gestation in second trimester Intrauterine growth restriction affecting antepartum care of mother in second trimester, fetus 1 Velamentous insertion of umbilical cord in second trimester Vasa previa, fetus 1 of multiple gestation Palpitations documented in this encounter Results * Unlisted Lab Test (11/12/2024) Free Cell Dna LOW RISK MANUALLY TRANSCRIBED RESULTS Blood (Arm) 11/12/2024 us Gracy Woodall MD LAB BLOOD ORDERABLES Final Resul t MANUALLY TRANSCRIBED RESULTS documented in this encounter Visit Diagnoses Diagnosis Monochorionic diamniotic twin gestation in second trimester Intrauterine growth restriction affecting antepartum care of mother in second trimester, fetus 1 Velamentous insertion of umbilical cord in second trimester Vasa previa, fetus 1 of multiple gestation Palpitations documented in this encounter Care Teams Building Equipment Operator Relationship Specialty Start Date End Date Belén Rooney MD [address] [place] [phone] PCP - General Family Medicine 09/29/18 documented as of this encounter
--- OUTSIDE RECORDS SUMMARY | 2024-11-24 12:12 | XMS_ITS | Encounter Summary ---
Author Organization [facility] Address [address] [place] [address] Care Team Providers Care Loan Review Officer Name Role Phone Marlon Laguna MD Primary Care Provider [phone] Saul Eugene DO Unavailable Encounter Details Date Type Department Care Team (Late st Contact Info) Description 08/16/2024 Abstract [facility] OB [address] [place] [phone] Saul Eugene [address] [place], [place] [id number] Social History Tobacco Use Types Packs/Day Years [...] Description 11/30/2024 1:00 PM EDT Routine [facility] [address] [place] [address] Saul Eugene, DO [address] [place] [address] 03/28/2025 2:00 PM EST Office Visit [facility] [address] [place] [address] Saul Eugene, [address] [address] documented as of this encounter Goals Goal Patient Goal Type Associated Problems Recent Progress Patient-Stated? Author Reminders Care Plan OB Reminders No Open Scheduling, Background documented as of this encounter Visit Diagnoses Not on filedocumented in this encounter Additional Health Concerns Active Problems Noted Date Diagnosed Date OB Reminders 08/14/2024 documented as of this encounter Care Teams Loan Review Officer Relationship Specialty Start Date End Date Marlon Laguna MD [address] [facility] [place] [phone] PCP - General Family Medicine 08/29/23 Saul Eugene DO [address] [place] [address] Referring Physician Obstetrics and Gynecology 08/16/24 documented as of this encounter
--- OUTSIDE RECORDS SUMMARY | 2024-11-24 12:12 | XMS_ITS | Encounter Summary ---
Author Organization [facility] Address [address] [place] [address] Care Team Providers Care Chairman And Ceo Name Role Phone Marlon Laguna MD Primary Care Provider [phone] Saul Eugene DO Unavailable Encounter Details Date Type Department Care Team (Late st Contact Info) Description 03/03/2024 Orders Only [facility] OB [address] [place] [address] Gabrielle Mayer LPN [address] [place] [id number] Social History Tobacco Use Types Packs/Day Years Used Date Smoking Tobacco: Never Alcohol Use Standard Drinks/Week Comments Not Currently 0 (1 standard drink = 0.6 oz pure alcohol) Occaisonal alcohol use Caffeine:1-2 cups per day Comments No Sex and Gender Information Value Date Recorded Sex Assigned at Female 02/10/2023 2:43 PM EDT Legal Sex Female 7:34 PM EDT Gender Identity Female 02/10/2023 2:43 PM EDT Sexual Orientation Straight 02/10/2023 2: 43 PM EDT documented as of this encounter Plan of Treatment Upcoming Encounters Date Type Department Care Team (Late st Contact Info) Description 11/30/2024 1:00 PM EDT Routine [facility] [address] [place] [address] Saul Eugene, DO [address] [place] [address] 03/28/2025 2:00 PM EST Office Visit [facility] [address] [place] [phone] Saul Eugene, DO [address] [place], [place] [phone] documented as of this encounter Procedures Procedure Name Priority Date/Time Associated Diagnosis Comments PAP SMEAR Routine 02/23/2024 12:00 AM EDT documented in this encounter Results * Pap Smear (02/23/2024 12:00 AM EDT) Swab Cervical swab / Unknown us Saul Eugene DO LAB CYTOLOGY ORDERABLES Final Re sult EXTERNAL LAB documented in this encounter Visit Diagnoses Not on filedocumented in this encounter Care Teams Chairman And Ceo Relationship Specialty Start Date End Date Marlon Laguna MD [address] [facility] [place] [phone] PCP - General Family Medicine 08/29/23 Saul Eugene DO [address] [place] [address] Referring Physician Obstetrics and Gynecology 08/16/24 documented as of this encounter
--- OUTSIDE RECORDS SUMMARY | 2024-11-24 12:12 | XMS_ITS | Encounter Summary ---
Author Organization [facility] [employer] [facility] tem Address [facility]-[id number] [address] [place] [address] Care Team Providers Care Sr Community Manager Name Role Phone Belén Rooney MD Primary Care Provider Encounter Details Date Type Department Care Team (Late st Contact Info) Description 11/23/2024 Telephone Maternal- Medicine at [facility] [address] [place] [address] Susan Beltran LPN Social History Tobacco Use Types Packs/Day Years Used Date Smoking Tobacco: Never Smokeless Tobacco: Never Alcohol Use Standard Drinks/Week Comments Not Currently 0 (1 standard drink = 0.6 oz pur e alcohol) [facility] Utilities Answer Date Recorded In the past 12 months has e [employer], gas, oil, or water [employer] threatened to shut off services in your [...] on file documented as of this encounter Miscellaneous Notes * Telephone Encounter - Susan Beltran LPN - 11/23/2024 3:05 PM EDT Notified patient via voicemail of negative CFDNA results. documented in this encounter Plan of Treatment Upcoming Encounters Date Type Department Care Team (Late st Contact Info) Description 11/29/2024 3:00 PM EDT Appointment [facility] US Imaging [address] [place] [address] 12/06/2024 8:00 AM EDT Appointment [facility] Imaging [address] [place] [address] 01/10/2025 8:30 AM EDT Office Visit Maternal- Medicine at [facility] [address] [place] [address] Jefferson Nava MD [address], [address] [place] [address] documented as of this encounter Visit Diagnoses Not on filedocumented in this encounter Care Teams Sr Community Manager Relationship Specialty Start Date End Date Belén Rooney MD [address] [place] [phone] PCP - General Family Medicine 09/29/18 documented as of this encounter
--- OUTSIDE RECORDS SUMMARY | 2024-11-24 12:12 | XMS_ITS | Encounter Summary ---
Author Organization [facility] [employer] [facility] tem Address [id number] [address] [place] [address] Care Team Providers Care Slash Trimmer Name Role Phone Belén Rooney MD Primary Care Provider [phone] Encounter Details Date Type Department Care Team (Late st Contact Info) Description 11/17/2024 Telephone Maternal- Medicine at [facility] [address] [phone] Jefferson Nava MD [address] [facility], [address] [place] [address] Social History Tobacco Use Types Packs/Day Years Used Date Smoking Tobacco: Never Smokeless Tobacco: Never Alcohol Use Standard Drinks/Week Comments Not Currently 0 (1 standard drink = 0.6 oz pur e alcohol) [facility] Utilities Answer Date Recorded In the past 12 months has [employer] electric, gas, oil, or water company threatened [...] encounter Miscellaneous Notes * Telephone Encounter - Sherri Story - 11/17/2024 1:52 PM EDT Sales Management Intern lvm asking if pt would be able to come at 8:00 a.m. for her ultrasound on 12/06 instead of 9:00. documented in this encounter Plan of Treatment Upcoming Encounters Date Type Department Care Team (Late st Contact Info) Description 11/29/2024 3:00 PM EDT Appointment [facility] US Imaging [address] [place] [address] 12/06/2024 8:00 AM EDT Appointment [facility] US Imaging [address] [place] [address] 01/10/2025 8:30 AM EDT Office Visit Maternal- Medicine at [facility] [address] [place] [address] Jefferson Nava MD [address], [address] [place] [address] documented as of this encounter Visit Diagnoses Not on filedocumented in this encounter Care Teams Slash Trimmer Relationship Specialty Start Date End Date Belén Rooney MD [address] [place] [phone] PCP - General Family Medicine 09/29/18 documented as of this encounter
--- OUTSIDE RECORDS SUMMARY | 2024-11-24 12:12 | XMS_ITS | Encounter Summary ---
Author Organization [facility] tem Address [facility]-[id number] [address] [place] [address] Care Team Providers Care Technical Photographer Name Role Phone Belén Rooney MD Primary Care Provider Encounter Details Date Type Department Care Team (Late st Contact Info) Description 11/04/2024 Orders Only Maternal- Medicine at [facility] [address] [facility] [place] [phone] Susan Beltran LPN Intrauterine growth restriction affecting antepartum care of mother in second trimester, fetus 1; Velamentous insertion of umbilical cord in second trimester; Monochorionic diamniotic twin gestation in second trimester; Vasa previa, fetus 1 of multiple gestation; Palpitations Social History Tobacco Use Types Packs/Day Years Used Date Smoking Tobacco: Never Smokeless Tobacco: Never Alcohol Use Standard Drinks/Week Comments Not Currently 0 (1 standard drink = 0.6 oz pur e alcohol) [facility] Utilities Answer Date Recorded In the past 12 months has [employer] electric, gas, oil, or water company threatened [...] on file documented as of this encounter Functional Status documented as of this encounter Plan of Treatment Upcoming Encounters Date Type Department Care Team (Late st Contact Info) Description 11/29/2024 3:00 PM EDT Appointment [facility] US Imaging [address] [place] [address] 12/06/2024 8:00 AM EDT Appointment [facility] US Imaging [address] [place] [address] 01/10/2025 8:30 AM EDT Office Visit Maternal- Medicine at [facility] [address] [place] [address] Jefferson Nava MD [address], [address] [place] [address] documented as of this encounter Procedures Procedure Name Priority Date/Time Associated Diagnosis Comments UNLISTED LAB TEST Routine 10/26/2024 Intrauterine growth restriction affecting antepartum care of mother in second trimester, fetus 1 Velamentous insertion of umbilical cord in second trimester Monochorionic diamniotic twin gestation in second trimester Vasa previa, fetus 1 of multiple gestation Palpitations documented in this encounter Results * Unlisted Lab Test (10/26/2024) Free Cell Dna SEE SCANNED RESULTS MANUALLY TRANSCRIBED RESULTS Blood (Arm) 10/26/2024 us Gracy Woodall MD LAB BLOOD ORDERABLES Final Resul t MANUALLY TRANSCRIBED RESULTS documented in this encounter Visit Diagnoses Diagnosis Intrauterine growth restriction affecting antepartum care of mother in second trimester, fetus 1 Velamentous insertion of umbilical cord in second trimester Monochorionic diamniotic twin gestation in second trimester Vasa previa, fetus 1 of multiple gestation Palpitations documented in this encounter Care Teams Technical Photographer Relationship Specialty Start Date End Date Belén Rooney MD [address] [place] [phone] PCP - General Family Medicine 09/29/18 documented as of this encounter
--- OUTSIDE RECORDS SUMMARY | 2024-11-24 12:13 | XMS_ITS | Encounter Summary ---
Author Organization [facility] Address [address] [place] [address] Care Team Providers Care Furrier Apprentice Name Role Phone Marlon Laguna MD Primary Care Provider [phone] Saul Eugene DO Unavailable Encounter Details Date Type Department Care Team (Late st Contact Info) Description 11/22/2024 Abstract [facility] OB [address] [place] [phone] Saul Eugene [address] [place], [place] [phone] Social History Tobacco Use Types Packs/Day Years [...] Description 11/30/2024 1:00 PM EDT Routine [facility] [address] [place] [address] Saul Eugene, DO [address] [place] [address] 03/28/2025 2:00 PM EST Office Visit [facility] [address] [facility] [place] [address] Saul Eugene, [address] [place] [address] documented as of this encounter Goals Goal Patient Goal Type Associated Problems Recent Progress Patient-Stated? Author Reminders Care Plan OB Reminders No Open Scheduling, Background documented as of this encounter Visit Diagnoses Not on filedocumented in this encounter Additional Health Concerns Active Problems Noted Date Diagnosed Date OB Reminders 08/14/2024 documented as of this encounter Care Teams Furrier Apprentice Relationship Specialty Start Date End Date Marlon Laguna MD [address] [facility] [place] [address] PCP - General Family Medicine 08/29/23 Saul Eugene DO [address] [place] [address] Referring Physician Obstetrics and Gynecology 08/16/24 documented as of this encounter
--- OUTSIDE RECORDS SUMMARY | 2024-11-24 12:13 | XMS_ITS | Encounter Summary ---
Author Organization [employer] tem Address [id number] [address] [place] [address] Care Team Providers Care Java Portal Developer Name Role Phone Belén Rooney MD Primary Care Provider Reason for Visit * Reason Onset Date Comments Med Refill 07/05/2021 Encounter Details Date Type Department Care Team (Late st Contact Info) Description 07/05/2021 Refill [facility] - Farshad Ramsay MD [address] [address] Farshad Ramsay MD [address] [place] [address] Trigeminal neuralgia (Primary Dx) Social History Tobacco Use Types Packs/Day Years Used Date Smoking Tobacco: Never Smokeless Tobacco: Never Alcohol Use Standard Drinks/Week Comments Yes 0 (1 standard drink = 0.6 oz pur e alcohol) [facility] [employer] Answer Date Recorded Childcare Unknown 11/04/2018 Employment Answer Date Recorded Employment Unknown 11/04/2018 Purpose - Life Answer Date Recorded Purpose and direction in life Unknown Comments Unknown Sex and Gender Information Value Date Recorded Sex Assigned at Not on file Legal Sex Female 11:52 AM EDT Gender Identity Female 10/04/2024 7:53 AM EDT Sexual Orientation Not on file documented as of this encounter Miscellaneous Notes * Telephone Encounter - Dorothy Ramsay - 07/05/2021 2:51 PM EST At last appointment you discussed weaning her off of Neurontin for Trigeminal neuralgia. She is down to 300mg capsule daily but is asking if you would call in 100mg capsule to continue wean. Please advise. documented in this encounter Plan of Treatment Upcoming Encounters Date Type Department Care Team (Late st Contact Info) Description 11/29/2024 3:00 PM EDT Appointment [facility] US Imaging [address] [place] [address] 12/06/2024 8:00 AM EDT Appointment [facility] US Imaging [address] [place] [address] 01/10/2025 8:30 AM EDT Office Visit Maternal- Medicine at [facility] [address] [place] [address] Jefferson Nava MD [address] [facility] [place], [address] [place] [address] documented as of this encounter Visit Diagnoses Diagnosis Trigeminal neuralgia- Primary documented in this encounter Care Teams Java Portal Developer Relationship Specialty Start Date End Date Belén Rooney MD [address] [place] [phone] PCP - General Family Medicine 09/29/18 documented as of this encounter
--- OUTSIDE RECORDS SUMMARY | 2024-11-24 12:13 | XMS_ITS | Clinical Summary ---
Author Organization Weddingful tem Address [facility] [id number] [address] [place] [address] Care Team Providers Care Gas Welder Apprentice Name Role Phone Belén Rooney MD Primary Care Provider [phone] Allergies No known active allergies Medications PIRMELLA 1-35 mg-mcg per tablet 10/01/2016 Active magnesium oxide (MAG-OX) 400 mg tablet 09/24/2016 Active cyproheptadine (PERIACTIN) 4 mg tablet 09/24/2016 Active ondansetron (ZOFRAN) 4 mg tablet Take 4 mg by mouth every 8 (eight) hours as needed for nausea or vomiting. Active busPIRone (BUSPAR) 5 mg tablet Take 1 tablet (5 mg total) by mouth in the morning and 1 tablet (5 mg total) before bedtime. 01/07/2023 Active doxepin (SINEquan) 10 mg capsule Take 1 capsule (10 mg total) by mouth in the morning and 1 capsule (10 mg total) before bedtime. 03/21/2023 Active escitalopram (LEXAPRO) 20 mg tablet Take 1 tablet (20 mg total) by mouth in the morning. 03/21/2023 Active no115/iron/foli c acid ( 19 ORAL) Take 1 tablet by mouth in the morning. Active docusate sodium (COLACE) 100 mg capsule Take 1 capsule (100 mg total) by mouth in the morning. Active aspirin 81 mg Take 1 tablet (81 mg total) by mouth in the morning. Active Active Problems Problem Noted Date Diagnosed Date Monochorionic diamniotic twin gestation in secon d trimester 11/15/2024 uterine contractions 11/07/2024 Trigeminal neuralgia 04/11/2022 Estimated Date of Delivery Comme nts Yes 03/15/2025 Based on last me nstrual period of 06/08/2024 Encounters Date Type Department Care Team Description 11/23/2024 Orders Only Maternal- Medicine at [facility] [address] [place] [address] Susan Beltran LPN Monochorionic diamniotic twin gestation in second trimester; Intrauterine growth restriction affecting antepartum care of mother in second trimester, fetus 1; Velamentous insertion of umbilical cord in second trimester; Vasa previa, fetus 1 of multiple gestation; Palpitations 11/23/2024 Orders Only Maternal- Medicine at [facility] [address] [place] [address] Susan Beltran LPN Monochorionic diamniotic twin gestation in second trimester (Primary Dx); Intrauterine growth restriction affecting antepartum care of mother in second trimester, fetus 1; Velamentous insertion of umbilical cord in second trimester; Vasa previa, fetus 1 of multiple gestation; Palpitations 11/23/2024 Telephone Maternal- Medicine at [facility] [address] [place] [address] Susan Beltran LPN 11/22/2024 7:59 AM EDT - 11/22/2024 11:59 PM EDT Hospital Encounter [facility] US Imaging [address] [place] [address] Monochorionic diamniotic twin gestation in second trimester Discharge Disposition: Home 11/20/2024 Travel 11/17/2024 Telephone Maternal- Medicine at [facility] [address] [place] [address] Jefferson Nava MD 11/15/2024 2:30 PM EDT Office Visit Maternal- Medicine at [facility] [address] [facility] [place] [address] Jefferson Nava MD Monochorionic diamniotic twin gestation in second trimester (Primary Dx) 11/15/2024 12:47 PM EDT - 11/15/2024 11:59 PM EDT Hospital Encounter [facility] US Imaging [address] [place] [address] Encounter for other screening follow-up; Monochorionic diamniotic twin gestation in second trimester Discharge Disposition: Home 11/13/2024 Travel 11/08/2024 9:42 AM EDT - 11/08/2024 11:59 PM EDT Hospital Encounter [facility] US Imaging [address] [place] [address] Discharge Disposition: Home 11/08/2024 [facility] [address] [place] [address] Services, [facility]'s 11/07/2024 9:04 AM EDT - 11/07/2024 11:59 PM EDT Hospital Encounter [facility] US Imaging [address] [facility] [place] [address] Discharge Disposition: Home 11/07/2024 6:22 AM EDT - 11/08/2024 2:17 PM EDT Hospital Encounter [facility] - GEN 3 Antepartum [address] [place] [address] Farshad Negro MD Discharge Disposition: Home 11/07/2024 Travel 11/04/2024 Orders Only Maternal- Medicine at [facility] [address] [facility] [place] [address] Susan Betlran, MEDICAL PAYMENT POSTER Intrauterine growth restriction affecting antepartum care of mother in second trimester, fetus 1; Velamentous insertion of umbilical cord in second trimester; Monochorionic diamniotic twin gestation in second trimester; Vasa previa, fetus 1 of multiple gestation; Palpitations 11/04/2024 Orders Only Maternal- Medicine at [facility] [address] [place] [address] Susan Beltran LPN Intrauterine growth restriction affecting antepartum care of mother in second trimester, fetus 1 (Primary Dx); Velamentous insertion of umbilical cord in second trimester; Monochorionic diamniotic twin gestation in second trimester; Vasa previa, fetus 1 of multiple gestation; Palpitations 11/04/2024 Telephone Maternal- Medicine at [facility] [address] [place] [address] Susan Beltran LPN 11/01/2024 12:49 PM EDT - 11/01/2024 11:59 PM EDT Hospital Encounter [facility] US Imaging [address] [place] [address] Monochorionic diamniotic twin gestation in second trimester Discharge Disposition: Home 11/01/2024 Travel 10/30/2024 Travel 10/26/2024 11:30 AM EDT Office Visit Maternal- Medicine at [facility] [address] [place] [address] Gracy Woodall MD Intrauterine growth restriction affecting antepartum care of mother in second trimester, fetus 1 (Primary Dx); 20 weeks gestation of ; Velamentous insertion of umbilical cord in second trimester; Monochorionic diamniotic twin gestation in second trimester; Vasa previa, fetus 1 of multiple gestation 10/26/2024 9:00 AM EDT - 10/26/2024 11:59 PM EDT Hospital Encounter [facility] US Imaging [address] [place] [address] Palpitations; Monochorionic diamniotic twin gestation in second trimester Discharge Disposition: Home 10/24/2024 Travel 10/13/2024 Orders Only Maternal- Medicine at [facility] [address] [place] [address] Brooklyn Campos RN Monochorionic diamniotic twin gestation in second trimester (Primary Dx) 10/11/2024 3:29 PM EDT - 10/11/2024 11:59 PM EDT Hospital Encounter [facility] Imaging [address] [place] [address] Palpitations; Monochorionic diamniotic twin gestation in second trimester Discharge Disposition: Home 10/10/2024 Travel 10/04/2024 4:45 PM EDT - 10/04/2024 11:59 PM EDT Hospital Encounter [facility] - Cardiovascular [address] [place] [address] Palpitations Discharge Disposition: Home 10/04/2024 Travel 10/01/2024 Telephone Maternal- Medicine at [facility] [address] [place] [address] Susan Beltran LPN 10/01/2024 Telephone Maternal- Medicine at [facility] [address] [place] [address] Susan Beltran LPN 09/27/2024 10:30 AM EDT Office Visit Maternal- Medicine at [facility] [address] [place] [address] Benjamin Slade MD Simmonds, Lisa E, MD Monochorionic diamniotic twin gestation in second trimester (Primary Dx) 09/27/2024 9:01 AM EDT - 09/27/2024 11:59 PM EDT Hospital Encounter [facility] US Imaging [address] [place] [address] Screening, , for anatomic survey Discharge Disposition: Home 09/27/2024 Orders Only Maternal- Medicine at [facility] [address] [place] [address] Susan Beltran LPN Palpitations (Primary Dx); Monochorionic diamniotic twin gestation in second trimester 09/27/2024 Orders Only Maternal- Medicine at [facility] [address] [place] [address] Susan Beltran LPN Palpitations (Primary Dx) 09/25/2024 Travel from Last 3 Months Family History Medical History Relation Name Comments Heart disease Father Hypertension Father Stroke Father Cancer Maternal Aunt Diabetes Maternal Grandfather Heart disease Maternal Grandfather Brain cancer Maternal Grandmother Lung cancer Maternal Grandmother Hypertension Mother Heart disease Paternal Grandfather Lung cancer Paternal Grandmother Relation Name Status Comments Father Maternal Aunt Maternal Grandfather Maternal Grandmother Mother Paternal Grandfather Paternal Grandmother Social History Tobacco Use Types Packs/Day Years Used Date Smoking Tobacco: Never Smokeless Tobacco: Never Tobacco Cessation:Counseling Given: Not Answered Alcohol Use Standard Drinks/Week Comments Not Currently 0 (1 standard drink = 0.6 oz pur e alcohol) [facility] Utilities Answer Date Recorded In the past 12 months has th e [employer], gas, oil, or water enVerid threatened to shut off services in your [...] AM EDT Sexual Orientation Not on file Last Filed Vital Signs Vital Sign Reading Time Taken Comments Blood Pressure 108/70 11/15/2024 1:38 PM EDT Pulse 72 11/15/2024 1:38 PM EDT Temperature 37 C (98.6 F) 11/08/2024 8:30 AM EDT Respiratory Rate 14 11/08/2024 8:30 AM EDT Oxygen Saturation 100% 02/04/2019 10:34 AM EDT Inhaled Oxygen Concentration - - Weight 66.9 kg (147 lb 6.4 oz) 11/15/2024 1:38 P M EDT Height 157.5 cm (5' 2.01 ) 11/15/2024 1:38 PM ED T Body Mass Index 26.95 11/15/2024 1:38 PM EDT Plan of Treatment Upcoming Encounters Date Type Department Care Team (Late st Contact Info) Description 11/29/2024 3:00 PM EDT Appointment [facility] Imaging [address] [place] [address] 12/06/2024 8:00 AM EDT Appointment [facility] Imaging [address] [place] [address] 01/10/2025 8:30 AM EDT Office Visit Maternal- Medicine at [facility] [address] [place] [address] Jefferson Nava MD [address] [place] [address] Health Maintenance Due Date Last Done Comments Depression Screening 2007 Adult BMI Follow Up Plan 08/06/2013 DTaP,Tdap and Td Vaccines (7 - Td or Tdap) 04/26/2023 04/26/2013, 08/28/2000, 12/27/1996, Additional history exists Influenza Vaccine 01/24/2025 03/09/2019, , 03/05/2017, Additional history exists Adult BMI Screening 11/15/2025 11/15/2024 Tobacco Screening 11/15/2025 11/15/2024 Pap Smear 09/24/2027 09/23/2024, 02/23/2024 Medical Devices Not on file Procedures Procedure Name Priority Date/Time Associated Diagnosis Comments US MFM LMTD OB, 1 OR MORE FETUS Routine 11/22/2024 9:53 AM EDT Monochorionic diamniotic twin gestation in second trimester US M OB FOLLOW-UP, 1 FETUS Routine 11/15/2024 3:55 PM EDT Encounter for other screening follow-up Monochorionic diamniotic twin gestation in second trimester UNLISTED LAB TEST Routine 11/12/2024 Monochorionic diamniotic twin gestation in second trimester Intrauterine growth restriction affecting antepartum care of mother in second trimester, fetus 1 Velamentous insertion of umbilical cord in second trimester Vasa previa, fetus 1 of multiple gestation Palpitations US MFM LMTD OB, 1 OR MORE FETUS Routine 11/08/2024 10:45 AM EDT REPEATED ABORH Routine 11/07/2024 12:05 PM EDT REPEATED ABORH Routine 11/07/2024 11:18 AM EDT US M OB TRANSVAGINAL Routine 10:45 AM EDT EXTRA TUBES SST TOP Routine 11/07/2024 1 0:18 AM EDT EXTRA TUBES Routine 11/07/2024 10:18 AM EDT TYPE AND SCREEN Routine 11/07/2024 10:03 AM EDT CBC WITH AUTO DIFFERENTIAL STAT 11/07/2024 10:03 AM EDT STREP B SCREEN Routine 11/07/2024 8:50 AM EDT CHLAMYDIA/GC BY PCR CLARITZA SWAB Routine 11/07/2024 8:50 AM EDT VAGINITIS PANEL PCR Routine 11/07/2024 8 :50 AM EDT ER EXTRA URINE Routine 11/07/2024 7:39 AM EDT URINALYSIS Routine 11/07/2024 7:39 AM EDT URINE CULTURE STAT 11/07/2024 7:39 AM EDT US [facility] LMTD OB, 1 OR MORE FETUS Routine 11/01/2024 2:40 PM EDT Monochorionic diamniotic twin gestation in second trimester [facility] COMPREHENSIVE ANATOMIC SURVEY Routine 10/26/2024 12:47 PM EDT Palpitations Monochorionic diamniotic twin gestation in second trimester CYTOMEGALOVIRUS ANTIBODY, IGG Routine 10/26/2024 12:37 PM EDT Intrauterine growth restriction affecting antepartum care of mother in second trimester, fetus 1 20 weeks gestation of CMV IGM Routine 10/26/2024 12:37 PM EDT Intrauterine growth restriction affecting antepartum care of mother in second trimester, fetus 1 20 weeks gestation of UNLISTED LAB TEST Routine 10/26/2024 Intrauterine growth restriction affecting antepartum care of mother in second trimester, fetus 1 Velamentous insertion of umbilical cord in second trimester Monochorionic diamniotic twin gestation in second trimester Vasa previa, fetus 1 of multiple gestation Palpitations [facility] LMTD OB, 1 OR MORE FETUS Routine 10/11/2024 4:49 PM EDT Palpitations Monochorionic diamniotic twin gestation in second trimester ECG 12-LEAD Routine 10/04/2024 5:06 PM EDT Palpitations US MFM BASIC OB >/=14 WEEKS, 1 FETUS Routine 09/27/2024 10:59 AM EDT Screening, , for anatomic survey from Last 3 Months Results * US MFM LMTD OB, 1 OR MORE FETUS (11/22/2024 9:53 AM EDT) Only the most recent of8 resultswithin the time period is included. Anatomical Region Laterality Modality OB-PROVIDER RELATIONS MANAGER Ultrasound 11/22/2024 8:10 AM EDT Narrative 11/22/2024 10:59 AM EDT NAME: ALIVIA HARTMAN : 1995 SEX: F Accession Number: [id number] ORDERING PHYSICIAN: BENJAMIN SLADE REFERRING PHYSICIAN: VIC MCKEON Coding ----- --------- Procedures 96531: Limited OB / NATHAN, 1 or More Fetuses 72055: Doppler velocimetry, ; umbilical artery. 2 90670: Doppler velocimetry, ; middle cerebral artery. 2 87891: Doppler Ductus Venosus. 2 Indication ----- --------- Rincon-Di twin , IUGR-Poor growth-twin A, Pre term contractions, Supervision of high risk (elevated Doppler - Twin B) History ----- --------- OB History 1. Para 0 [id number] Maternal Assessment ----- --------- Physical Exam Height [...] view. RVOT view. LVOT view. 3-vessel view. 7-pfjdeb-slyqeac view. Situs. Bicaval view. Cardiac position. Cardiac [...] PI 1.34 4% [place] RI 0.76 39% [facility] PS 29.59 cm/s PS 0.97 MoM ED [...] primary OB provider unless otherwise specified by M. Results forwarded to ordering provider so they can follow up with the patient as necessary. Procedure Note Gracy Woodall MD - 11/22/2024 NAME: ALIVIA HARTMAN : 1995 SEX: F Accession Number: [id number] ORDERING PHYSICIAN: BENJAMIN SLADE REFERRING PHYSICIAN: VIC MCKEON Coding ----- --------- Procedures 53120: Limited OB / NATHAN, 1 or More Fetuses 83463: Doppler velocimetry, ; umbilical artery. 2 64890: Doppler velocimetry, ; middle cerebral artery. 2 30963: Doppler Ductus Venosus. 2 Indication ----- --------- Rincon-Di twin , IUGR-Poor growth-twin A, Pre termcontractions, Supervision of high risk (elevated Doppler - Twin B) History ----- --------- OB History 1. Para 0 [id number] Maternal Assessment ----- --------- Physical Exam Height [...] 4-chamber view. RVOT view. LVOT view. 3-vessel view.4-recgzo-arfnmmq view. Situs. Bicaval view. Cardiac position. Cardiac [...] byprimary OB provider unless otherwise specified by M. Results forwarded to ordering provider so they can follow up with thepatient as necessary. Benjamin Slade MD [facility] ORDERABLES Final Re sult * Unlisted Lab Test (11/12/2024) Only the most recent of2 resultswithin the time period is included. Free Cell Dna LOW RISK MANUALLY TRANSCRIBED RESULTS Blood (Arm) 11/12/2024 Gracy Woodall MD LAB BLOOD ORDERABLES Final Resul t MANUALLY TRANSCRIBED RESULTS * ABO Rh Repeat (11/07/2024 12:05 PM EDT) Only the most recent of2 resultswithin the time period is included. 11/07/2024 12:0 5 PM EDT Melody Estes MD BLOOD BANK TEST ORDERABLES F inal Result SUNQUEST * SST TOP (11/07/2024 10:18 AM EDT) Pathologist [facility] Extra Tube Auto Resulted 11/07/2024 12:01 PM EDT [facility] Blood Venous blood / Unknown 11/07/2024 10:18 AM EDT 11/07/2024 10:18 AM EDT Farshad Negro MD LAB BLOOD ORDERABLES Final Res ult Performing Organization Address City/[facility]/ZIP Co de Phone Number [facility] [address] [place] [address], [place] [phone] * (ABNORMAL) CBC auto differential (11/07/2024 10:03 AM EDT) WBC 9.6 4 - 11 x10E9/L 11/07/2024 10:34 AM EDT [facility] RBC Count 3.85 3.8 - 5.2 X10E12/L 11/07/2024 10:34 AM EDT [facility] Hemoglobin 11.3(L) 11.7 - 15.5 g/dL 11/07/2024 10:34 AM EDT [facility] Hematocrit 33.3(L) 35 - 47 % 11/07/2024 10:34 AM EDT [facility] MCV 86 80 - 100 fL 11/07/2024 10:34 AM EDT [facility] MCH 29.2 27 - 34 pg 11/07/2024 10:34 AM EDT [facility] MCHC 33.9 32 - 36 g/dL 11/07/2024 10:34 AM EDT [facility] RDW 13.8 11.5 - 15 % 11/07/2024 10:34 AM EDT [facility] Platelet Count 253 150 - 450 X10E9/L 11/07/2024 10:34 AM EDT [facility] MPV 7.4 7 - 12 fL 11/07/2024 10:34 AM EDT [facility] Neutrophils % 84.5 % 11/07/2024 10:34 AM EDT [facility] Lymphocytes % 9.8 % 11/07[facility]2024 [facility] Monocytes % 5.5 % 11/07/2024 10:34 AM EDT [facility] Eosinophils % 0.1 % 11/07/2024 10:34 AM EDT [facility] Basophils % 0.1 % 11/07/2024 10:34 AM EDT [facility] Neutrophils Absolute (A) 8.1(H) 1.5 - 6.6 10*3/uL 11/07/2024 10:34 AM EDT [facility] Lymphocytes Absolute 0.9(L) 1.0 - 3.5 10*3/uL 11/07/2024 10:34 AM EDT [facility] Monocytes Absolute 0.5 0.0 - 0.9 10*3/uL 11/07/2024 10:34 AM EDT [facility] Eosinophils Absolute 0.0 0.0 - 0.4 10*3/uL 11/07/2024 10:34 AM EDT [facility] Basophils Absolute 0.0 0.0 - 0.2 10*3/uL 11/07/2024 10:34 AM EDT [facility] Differential Type AUTOMATED DIFFERENTIAL 11/07/2024 10:34 AM EDT [facility] Blood Venous blood / Unknown Venipuncture / Unknown 11/07/2024 10:03 AM EDT 11/07/2024 10:03 AM EDT us Melody Estes MD LAB BLOOD ORDERABLES Final R esult [facility] [address] [place] [address], * Type and screen(includes indirect pedro) (11/07/2024 10:03 AM EDT) ABO A 11/07/2024 10:48 AM EDT [facility] RH Positive 11/07/2024 10:48 AM EDT [facility] Antibody Screen Negative 11/07/2024 10:48 AM EDT [facility] Blood Venous blood / Unknown Venipuncture / Unknown 11/07/2024 10:03 AM EDT 11/07/2024 10:03 AM EDT us Melody Estes MD BLOOD BANK TEST ORDERABLES E dited Result - Final [facility] [address] [place] [address], [facility] [address] [place] [address], * Chlamydia/GC by PCR Claritza Swab (11/07/2024 8:50 AM EDT) CHLAMYDIA DNA(PCR) Negative Negative 11/08/2024 11:15 AM EDT [facility] Comment:Chlamydia trachomati s not detected by nucleic acid amplification. This does not exclude the possibility of infection because results are dependent on adequate specimen collection. GONORRHOEAE DNA(PCR) Negative Negative 11/08/2024 11:15 AM EDT [facility] Comment:Neisseria gonorrhoea e not detected by nucleic acid amplification. This does not exclude the possibility of infection because results are dependent on adequate specimen collection. Swab Vaginal structure / Unknown 11/07/2024 8:50 AM EDT 11/07/2024 9:12 AM EDT Lisa Lopez ACCOUNTANT CONTROLLER-CNM MICROBIOLOGY - GENE RAL ORDERABLES Final Result [facility] [address] [place] [address], [place] [phone] * Vaginitis Panel PCR (11/07/2024 8:50 AM EDT) BACT. VAGINOSIS DNA Not Detected Not Detected 11/07/2024 3:09 PM EDT [facility] Comment:Qualitative results are reported based on detection and quantitation of targeted organism markers which include: Lactobacillus spp. (L. crispatus and L. jensenii), Gardnerella vaginalis, Atopobium vaginae, Bacterial Vaginosis Associated Bacteria-2 (BVAB-2) and Megasphaera-1. KENYA SPECIES DNA Not Detected Not Detected 11/07/2024 3:09 PM EDT [facility] Comment:[place] species not detected include: C. albicans, C. tropicalis, C. parapsilosis or C. dubliniensis. KENYA KRUSEI DNA Not Detected Not Detected 11/07/2024 3:09 PM EDT [facility] Comment:No [place] krusei de tected. KENYA GLABRATA DNA Not Detected Not Detected 11/07/2024 3:09 PM EDT [facility] Comment:No [place] glabrata detected. TRICHOMONAS VAG DNA Not Detected Not Detected 11/07/2024 3:09 PM EDT [facility] Comment: No Trichomonas vaginalis detected. BD MAX Vaginal Panel has not been evaluated for patients under 18 years old. Results for these patients should be reviewed and assessed in accordance with clinical presentation to determine patient diagnosis. Swab Vaginal structure / Unknown 11/07/2024 8:50 AM EDT 11/07/2024 9:12 AM EDT Lisa Lopez APRN-DORIS MICROBIOLOGY - GENE RAL ORDERABLES Final Result [facility] [address] [place] [address], * Strep B screen (11/07/2024 8:50 AM EDT) CULTURE RESULTS NEGATIVE FOR GROUP B STREPTOCOCCUS BY NUCLEIC ACID AMPLIFICATION 11/08/2024 3:27 PM EDT [facility] Swab (Vagina/Rectum) 11/07/2024 8:50 AM EDT 11/07/2024 9:12 AM EDT us Lisa Lopez APRN-DORIS MICROBIOLOGY - GENE RAL ORDERABLES Final Result Performing Organization Address City/[facility]/ZIP Co de Phone Number [facility] [address] [place] [address], [place] [phone] * Er Extra Urine (11/07/2024 7:39 AM EDT) Extra Tube Auto Resulted 11/07/2024 9:01 AM EDT [facility] Urine Urine specimen collection, clean catch / Unknown 11/07/2024 7:39 AM EDT 11/07/2024 7:51 AM EDT us Farshad Negro MD URINE ORDERABLES Final Result [facility] [address] [place] [address], * (ABNORMAL) Urinalysis (11/07/2024 7:39 AM EDT) COLOR Colorless Yellow, Colorless 11/07/2024 8:04 AM EDT [facility] TURBIDITY Hazy(A) Clear 11/07/2024 8:04 AM EDT [facility] SPECIFIC GRAVITY 1.003 1.003 - 1.035 11/07/2024 8:04 AM EDT [facility] NITRITE Negative Negative 11/07/2024 8:04 AM EDT [facility] PH,URINE 6.5 5.0 - 8.5 11/07/2024 8:04 AM EDT [facility] LEUKOCYTE ESTERASE Small(A) Negative 11/07/2024 8:04 AM EDT [facility] PROTEIN Negative Negative 11/07/2024 8:04 AM EDT [facility] KETONES (URINE) Negative Negative 8:04 AM EDT [facility] UROBILINOGEN <1.1 eu/dL <1.1 eu/dL 11/07/2024 8:04 AM EDT [facility] BILIRUBIN (URINE) Negative Negative 11/07/2024 8:04 AM EDT [facility] BLOOD/HGB Negative Negative 11/07/2024 8:04 AM EDT [facility] MUCOUS Present(A) None 11/07/2024 8:04 AM EDT [facility] R.B.CELLS 3 0 - 5 11/07/2024 8:04 AM EDT [facility] SQUAMOUS EPITHELIUM 9(H) 0 - 5 11/07/2024 8:04 AM EDT [facility] W.B.CELLS 9(H) 0 - 5 11/07/2024 8:04 AM EDT [facility] GLUCOSE (URINE) Negative Negative 8:04 AM EDT [facility] Urine 11/07/2024 7:39 AM EDT 11/07/2024 7:50 AM EDT us Lisa Nayely Lopez ACCOUNTANT CONTROLLER-CNM URINE ORDERABLES Fi nal Result [facility] [address] [place] [address], * Urine Culture Urine, Clean Catch Midstream (11/07/2024 7:39 AM EDT) CULTURE RESULTS NO GROWTH AT <1000 CFU/mL 11/08/2024 8:24 AM EDT [facility] Urine Urine specimen collection, clean catch / Unknown 11/07/2024 7:39 AM EDT 11/07/2024 7:50 AM EDT Lisa Lopez ACCOUNTANT CONTROLLER-CNM MICROBIOLOGY - GENE RAL ORDERABLES Final Result Performing Organization Address City/[facility]/ZIP Co de Phone Number [facility] [address] [place] [address], * CMV IgM (10/26/2024 12:37 PM EDT) CYTOMEGALOVIRUS IGM 0.2 <0.9 AI 10/26 2:54 PM EDT [facility] Blood Venous blood / Unknown Venipuncture / Unknown 10/26/2024 12:37 PM EDT 10/26/2024 12:37 PM EDT Narrative [facility] - 10/26/2024 2:54 PM EDT Intepretation < 0.9 Negative 0.9 - 1.0 Equivocal > 1.0 Positive The following results were obtained with the [employer] [address] [employer] IgM test. Results obtained from other [employer] assay methods may not be used interchangeably. Gracy Woodall MD LAB BLOOD ORDERABLES Final Resul t [facility] [address] [place] [address], * (ABNORMAL) Cytomegalovirus antibody, IgG (10/26/2024 12:37 PM EDT) CYTOMEGALOVIRUS IGG >8.0(H) <0.9 AI 10/26 2:54 PM EDT [facility] Blood Venous blood / Unknown Venipuncture / Unknown 10/26/2024 12:37 PM EDT 10/26/2024 12:37 PM EDT Narrative [facility] - 10/26/2024 2:54 PM EDT Intepretation < 0.9 Negative 0.9 - 1.0 Equivocal > 1.0 Positive Gracy Woodall MD LAB BLOOD ORDERABLES Final Resul t [facility] [address] [place] [address], * ECG 12 lead (10/04/2024 5:06 PM EDT) 10/04/2024 5:06 PM EDT Narrative [facility] - 10/06/2024 11:23 AM EDT Mya Dumont MD ECG ORDERABLES Final Result [facility] from Last 3 Months Insurance COUNT INCLUDES THE [facility] Advance Directives * Full Code (Latest Code Status on File) Date Activated Date Inactivated Comments 11/07/2024 9:33 AM 11/08/2024 4:22 PM Care Teams Gas Welder Apprentice Relationship Specialty Start Date End Date Belén Rooney MD [address] [place] [phone] PCP - General Family Medicine 09/29/18
--- OUTSIDE RECORDS SUMMARY | 2024-11-24 12:13 | XMS_ITS | Encounter Summary ---
Author Organization [facility] Address [address] [place] [address] Care Team Providers Care Jewelsmith Name Role Phone Marlon Laguna MD Primary Care Provider [phone] Saul Eugene DO Unavailable Encounter Details Date Type Department Care Team (Late st Contact Info) Description 10/27/2024 Abstract [facility] [address] [place] [phone] Saul Eugene [address] [place], [place] [id number] Social History Tobacco Use Types Packs/Day Years [...] Description 11/30/2024 1:00 PM EDT Routine [facility] [address] [place] [phone] Saul Eugene, DO [address] [place] [address] 03/28/2025 2:00 PM EST Office Visit [facility] [address] [facility] [place] [phone] Saul Eugene, [address] [place] [address] documented as of this encounter Goals Goal Patient Goal Type Associated Problems Recent Progress Patient-Stated? Author Reminders Care Plan OB Reminders No Open Scheduling, Background documented as of this encounter Visit Diagnoses Not on filedocumented in this encounter Additional Health Concerns Active Problems Noted Date Diagnosed Date OB Reminders 08/14/2024 documented as of this encounter Care Teams Jewelsmith Relationship Specialty Start Date End Date Marlon Laguna MD [address] [facility] [place] [phone] PCP - General Family Medicine 08/29/23 Saul Eugene DO [address] [place] [address] Referring Physician Obstetrics and Gynecology 08/16/24 documented as of this encounter
--- OUTSIDE RECORDS SUMMARY | 2024-11-24 12:13 | XMS_ITS | Encounter Summary ---
Author Organization [facility] Address [address] [place] [address] Care Team Providers Care Accounting Assistant Name Role Phone Marlon Laguna MD Primary Care Provider [phone] Saul Eugene DO Unavailable Encounter Details Date Type Department Care Team (Late st Contact Info) Description 10/11/2024 Abstract [facility] [address] [place] [phone] Saul Eugene [address] [place], [place] [phone] Social History Tobacco Use Types Packs/Day Years [...] Description 11/30/2024 1:00 PM EDT Routine [facility] [address] [place] [phone] Saul Eugene, DO [address] [place] [address] 03/28/2025 2:00 PM EST Office Visit [facility] [address] [facility] [place] [phone] Saul Eugene, [address] [place] [address] documented as of this encounter Goals Goal Patient Goal Type Associated Problems Recent Progress Patient-Stated? Author Reminders Care Plan OB Reminders No Open Scheduling, Background documented as of this encounter Visit Diagnoses Not on filedocumented in this encounter Additional Health Concerns Active Problems Noted Date Diagnosed Date OB Reminders 08/14/2024 documented as of this encounter Care Teams Accounting Assistant Relationship Specialty Start Date End Date Marlon Laguna MD [address] [facility] [place] [phone] PCP - General Family Medicine 08/29/23 Saul Eugene DO [address] [place] [address] Referring Physician Obstetrics and Gynecology 08/16/24 documented as of this encounter
--- OUTSIDE RECORDS SUMMARY | 2024-11-24 12:13 | XMS_ITS | Encounter Summary ---
Author Organization [facility] Address [address] [place] [address] Care Team Providers Care Nuclear Radiation Engineer Name Role Phone Marlon Laguna MD Primary Care Provider [phone] Saul Eugene DO Unavailable Encounter Details Date Type Department Care Team (Late st Contact Info) Description 09/27/2024 Abstract [facility] [address] [place] [phone] Saul Eugene [address] [place], [place] [phone] Social History Tobacco Use Types Packs/Day Years [...] Description 11/30/2024 1:00 PM EDT Routine [facility] [address] [place] [phone] Saul Eugene, DO [address] [place] [address] 03/28/2025 2:00 PM EST Office Visit [facility] [address] [facility] [place] [phone] Saul Eugene, [address] [place] [address] documented as of this encounter Goals Goal Patient Goal Type Associated Problems Recent Progress Patient-Stated? Author Reminders Care Plan OB Reminders No Open Scheduling, Background documented as of this encounter Visit Diagnoses Not on filedocumented in this encounter Additional Health Concerns Active Problems Noted Date Diagnosed Date OB Reminders 08/14/2024 documented as of this encounter Care Teams Nuclear Radiation Engineer Relationship Specialty Start Date End Date Marlon Laguna MD [address] [facility] [place] [phone] PCP - General Family Medicine 08/29/23 Saul Eugene DO [address] [place] [address] Referring Physician Obstetrics and Gynecology 08/16/24 documented as of this encounter
--- OUTSIDE RECORDS SUMMARY | 2024-11-24 12:13 | XMS_ITS | Encounter Summary ---
Author Organization [facility] Address [address] [place] [address] Care Team Providers Care Auto Body Estimator Name Role Phone Marlon Laguna MD Primary Care Provider [phone] Saul Eugene DO Unavailable Encounter Details Date Type Department Care Team (Late st Contact Info) Description 09/28/2024 Abstract [facility] [address] [place] [phone] Saul Eugene [address] [place], [place] [phone] Social History Tobacco Use Types Packs/Day Years [...] Description 11/30/2024 1:00 PM EDT Routine [facility] [address] [place] [phone] Saul Eugene, DO [address] [place] [address] 03/28/2025 2:00 PM EST Office Visit [facility] [address] [facility] [place] [place] [phone] Saul Eugene, [address] [place] [address] documented as of this encounter Goals Goal Patient Goal Type Associated Problems Recent Progress Patient-Stated? Author Reminders Care Plan OB Reminders No Open Scheduling, Background documented as of this encounter Visit Diagnoses Not on filedocumented in this encounter Additional Health Concerns Active Problems Noted Date Diagnosed Date OB Reminders 08/14/2024 documented as of this encounter Care Teams Auto Body Estimator Relationship Specialty Start Date End Date Marlon Laguna MD [address] [facility] [place] [phone] PCP - General Family Medicine 08/29/23 Saul Eugene DO [address] [place] [address] Referring Physician Obstetrics and Gynecology 08/16/24 documented as of this encounter
--- OUTSIDE RECORDS SUMMARY | 2024-11-24 12:13 | XMS_ITS | Clinical Summary ---
Author Organization [facility] Address [address] [place] [address] Care Team Providers [employer] Tax Manager Name Role Phone Marlon Laguna MD Primary Care Provider [phone] Vic Eugene DO Unavailable Allergies No known active allergies Medications Vit-Fe Fumarate-FA ( Vitamins) 28-0.8 MG tabletIndications :Well woman exam with routine gynecological exam Take 1 tablet by mouth Daily 30 tablet 11 4 02/23/20 25 Active magnesium oxide (Mag-Ox) 400 mg tablet Take 400 mg by mouth Daily Active docusate sodium (Colace) 100 MG capsule Take 100 mg by mouth in the morning and 100 mg before bedtime. Active aspirin 81 MG EC tablet Take 81 mg by mouth in the morning. Active Docusate Sodium (DSS) 100 MG capsule Take 100 mg by mouth in the morning. 11/17/19 25 Discontinu ed(Other) Encounters Date Type Department Care Team Description 11/23/2024 Travel 11/22/2024 Abstract [facility] OB [address] [place] [address] Vic Eugene, 11/22/2024 Abstract [facility] OB [facility] [place] [place] [address] Vic Eugene, 11/16/2024 2:20 PM EDT Routine [facility] OB [facility] [place] [address] Vic Eugene, DO Second trimester ([facility]); 23 weeks gestation of ([facility]); Diabetes mellitus screening; Monochorionic diamniotic twin gestation in second trimester ([facility]) 11/16/2024 Bamboo flowsheet [facility] [address] [place] [address] Vic Eugene, DO 11/09/2024 Travel 11/02/2024 Abstract [facility] OB [address] [place] [address] Ximena Aly MA 10/27/2024 Abstract [facility] [address] [place] [address] Vic Eugene, DO 10/20/2024 3:50 PM EDT Routine [facility] [address] [place] [address] Vic Eugene, 19 weeks gestation of ([facility]); Second trimester ([facility]) 10/20/2024 Bamboo flowsheet [facility] [address] [place] [address] Vic Eugene, DO 10/13/2024 Travel 10/12/2024 Abstract [facility] OB [address] [place] [address] Vic Eugene, DO 10/11/2024 Abstract [facility] OB [address] [place] [address] Vic Eugene, DO 10/01/2024 Orders Only [facility] OB [address] [place] [address] Ximena Aly MA 09/28/2024 Abstract [facility] [address] [place] [address] Vic Eugene, DO 09/27/20[address] Abstract [facility] [address] [place] [address] Vic Eugene, DO 09/24/[address] [address] [place] [address] Vic Eugene, DO 09/23/2024 11:10 AM EDT Routine [facility] [address] [place] [address] Vic Eugene, DO 15 weeks gestation of ([facility]); Second trimester ([facility]); Well woman exam with routine gynecological exam; Exposure to STD; Vaginal discharge; Monochorionic diamniotic twin gestation in second trimester ([facility]) 09/23/2024 Clinisync Result Encounter [facility] External Department Unsolicited Vic Eugene, DO 09/23/2024 External Result Encounter [facility] External Department Unsolicited Vic Eugene, DO 09/23/2024 Bamboo flowsheet [facility] [address] [place] [address] Vic Eugene, DO 09/19/2024 Travel 09/13/[address] [facility] [address] [place] [address] Gabrielle Mayer LPN 09/01/2024 1:10 PM EDT Routine [facility] [address] [place] [address] Vic Eugene, DO First trimester ([facility]); 12 weeks gestation of ([facility]); Monochorionic diamniotic twin gestation in first trimester ([facility]) 09/01/2024 Bamboo flowsheet [facility] [address] [place] [address] Vic Eugene, DO 08/25/2024 Travel from Last 3 Months Family History Medical History Relation Name Comments Hypertension Father Stroke Father Diabetes Maternal Grandfather Heart disease Maternal Grandfather Brain cancer Maternal Grandmother Lung cancer Maternal Grandmother Hypertension Mother Heart disease Paternal Grandfather Lung cancer Paternal Grandmother Relation Name Status Comments Father Maternal Grandfather Maternal Grandmother Mother Alive Paternal Grandfather Paternal Grandmother Social History Tobacco Use Types Packs/Day Years Used Date Smoking Tobacco: Never Tobacco Cessation:Counseling Given: Not Answered [...] Orientation Straight 02/10/2023 2: 43 PM EDT Last Filed Vital Signs Vital Sign Reading Time Taken Comments Blood Pressure 108/70 11/16/2024 2:28 PM EDT Pulse - - Temperature - - Respiratory Rate - - Oxygen Saturation - - Inhaled Oxygen Concentration - - Weight 67 kg (147 lb 12.8 oz) 11/16/2024 2:28 PM EDT Height 157.5 cm (5' 2 ) 02/10/2023 11:39 AM EDT Body Mass Index 27.03 02/10/2023 11:39 AM EDT Plan of Treatment Upcoming Encounters Date Type Department Care Team (Late st Contact Info) Description 11/30/2024 1:00 PM EDT Routine [facility] [address] [place] [place] [address] Vic Eugene, DO [address] [place] [address] 03/28/2025 2:00 PM EST Office Visit [facility] [address] [place] [address] Vic Eugene, DO [address] [place], [place] [id number] Goals Goal Patient Goal Type Associated Problems Recent Progress Patient-Stated? Author Reminders Care Plan OB Reminders No Open Scheduling, Background Procedures Procedure Name Priority Date/Time Associated Diagnosis Comments POCT URINALYSIS DIPSTICK Routine 10/20/2024 4:19 PM EDT 19 weeks gestation of ([facility]) Second trimester ([facility]) US OB 14+ WEEKS ANATOMY SCAN 09/27/2024 12:17 PM EDT RECURRENT VAGINITIS (HTRX) Routine 09/23/2024 11:57 AM EDT POCT URINALYSIS DIPSTICK Routine 09/23/2024 11:34 AM EDT 15 weeks gestation of ([facility]) Second trimester ([facility]) IGP,APTIMA HPV,AGE GDLN Routine 09/23/2024 11:12 AM EDT PAP SMEAR Routine 09/23/2024 12:00 AM EDT POCT URINALYSIS DIPSTICK Routine 09/01/2024 1:11 PM EDT First trimester ([facility]) 12 weeks gestation of ([facility]) from Last 3 Months Results * POCT urinalysis dipstick manually resulted (10/20/2024 4:19 PM EDT) Only the most recent of3 resultswithin the time period is included. Color, UA Yellow Clarity, UA Clear Glucose, UA Negative Negative - 1999(110) ++++ mg/dL Bilirubin, UA Negative Negative - 4(70) +++ mg/dL Ketones, UA Negative Negative - 160(16) ++++ mg/dL Spec Grav, UA 1.015 1 - 1.03 Blood, UA Negative Negative - 50 Nuno/mcL pH, UA 6.0 5 - 9 Protein, UA Negative Negative - 1999(20) ++++ mg/dL Urobilinogen, UA 0.2 0.2 - 12 mg/dL Leukocytes, UA Negative Negative - 500+++ Lisa/mcL Nitrite, UA Negative Negative - Positive Urine 10/20/2024 4:19 PM EDT us Vic Eugene DO POINT OF CARE TEST ENTER/EDIT OR DERABLES Final Result * US OB 14+ weeks anatomy scan (09/27/2024 12:17 PM EDT) Anatomical Region Laterality Modality Body Ultrasound 09/27/2024 12:1 7 PM EDT Narrative 09/27/2024 12:17 PM EDT THIS EXAM WAS PERFORMED AT [facility] NAME: ALIVIA HARTMAN : 1995 SEX: F Accession Number: [id number] ORDERING PHYSICIAN: VIC EUGENE REFERRING PHYSICIAN: VIC EUGENE Coding ----- --------- Procedures [id number]: Ultrasound, uterus, real time with image documentation, and maternal evaluation, after first trimester (> or = 14 weeks 0 days), transabdominal approach; single or first gestation. 2 Indication ----- --------- Screening for Anatomic Survey, Imperial-Di twin , History ----- --------- OB History 1. Para 0 [id number] Maternal Assessment ----- --------- Physical Exam Height 157 cm, 5 ft 2 in. Weight 64 kg, 141 lb. Initial weight 64 kg, 141 lb. BMI 25.79 kg/m???. Initial BMI 25.79 kg/m???. Weight gain 0 kg, 0 lb Method ----- --------- Transabdominal ultrasound examination. View: Suboptimal view: limited by early gestational age and positions ----- --------- Twin . Number of fetuses: 2. Monochorionic-diamniotic Dating ----- --------- LMP on: 06/08/2024 GA by LMP 15 w + 6 d VICTOR M by LMP: 03/15/2025 Ultrasound examination on: 09/27/2024 GA by U/S based upon: AC, BPD, Femur, HC GA by U/S 15 w + 3 d VICTOR M by U/S: 03/18/2025 GA by U/S based upon (Fetus 2): AC, BPD, Femur, HC GA by U/S (Fetus 2) 15 w + 5 d VICTOR M by U/S (Fetus 2): 03/16/2025 Assigned: based on the LMP, selected on 09/27/2024 Assigned GA 15 w + 6 d Assigned VICTOR M: 03/15/2025 Fetus A: General Evaluation ----- --------- Cardiac activity Present. FHR 144 bpm. Presentation: breech, Lower Right Placenta: Placental site: posterior Umbilical cord: Cord vessels: Not examined. Insertion site: not examined Amniotic fluid: Amount of AF: normal amount. MVP 2.1 cm Fetus B: General Evaluation ----- --------- Cardiac activity Present. FHR 146 bpm. Presentation: variable, Upper Left Placenta: Placental site: posterior Umbilical cord: Cord vessels: 3 vessel cord. Insertion site: not examined Amniotic fluid: Amount of AF: normal amount. MVP 2.2 cm Fetus A: Biometry ----- --------- Standard BPD 30.0 mm 15w 3d 28% Hadlock OFD 39.6 mm 15w 6d 52% Tamica HC 112.3 mm 15w 3d 16% Hadlock Cerebellum tr 14.3 mm 15w 2d 7% Hill AC 99.8 mm 16w 0d 58% Hadlock Femur 15.5 mm 14w 4d 6% Hadlock Humerus 16.9 mm 14w 6d 14% Tamica HC / AC 1.13 9% Hadlock EFW 121 g 14% Hadlock EFW discordance 10.4 % EFW (lb) 0 lb EFW (oz) 4 oz EFW by: Hadlock ([id number]) Extended Tibia 14.3 mm 15w 0d 17% Tamica CM 1.8 mm 2% Nicolaides Inner IOD 10.0 mm Outer IOD 21.8 mm Head / Face / Neck Cephalic index 0.76 12% Nicolaides Nasal bone: present Extremities / Bony Struc FL / BPD 0.52 1% Hadlock FL / HC 0.14 1% Hadlock FL / AC 0.16 <1% Hadlock Other Structures FHR 144 bpm Fetus B: Biometry ----- --------- Standard BPD 29.8 mm 15w 3d 25% Hadlock OFD 39.4 mm 15w 6d 50% Tamica HC 112.3 mm 15w 3d 16% Hadlock Cerebellum tr 15.1 mm 15w 6d 24% Hill AC 106.2 mm 16w 4d 75% Hadlock Femur 17.3 mm 15w 1d 18% Hadlock Humerus 17.9 mm 15w 1d 25% Tamica HC / AC 1.06 <1% Hadlock EFW 135 g 36% Hadlock EFW discordance 10.4 % EFW (lb) 0 lb EFW (oz) 5 oz EFW by: Hadlock ([id number]) Extended Tibia 14.7 mm 15w 0d 21% Tamica CM 2.5 mm 9% Nicolaides Head / Face / Neck Cephalic index 0.76 11% Nicolaides Nasal bone: not examined Extremities / Bony Struc FL / BPD 0.58 27% Hadlock FL / HC 0.15 10% Hadlock FL / AC 0.16 <1% Hadlock Other Structures FHR 146 bpm Fetus A: Anatomy ----- --------- The following structures appear normal: Head/Neck: Cranium. Choroid plexus. Midline falx. Cerebellum. Cisterna magna. Face: Profile. Nasal bone. Orbits. Heart/Thorax: Situs. Cardiac position. Cardiac axis. Cardiac size. Cardiac rhythm. Abdomen: Cord insertion. Stomach. Bladder. Extremities/Skeleton: Arms. Hands. Legs. Skeleton The following structures could not be adequately visualized: Head / Neck Cavum septi pellucidi. Face Maxilla. Mandible. Heart / Thorax 4-chamber view. Interventricular septum. Great vessels. Abdomen Small bowel. Large bowel. Extremities / Feet. Skeleton The following structures could not be examined: Head / Neck Lateral ventricles. Neck. Face Lips. Nose. Heart / Thorax RVOT view. LVOT view. 3-vessel view. 8-rwyvkm-weeaqef view. Diaphragm. Abdomen Kidneys. Right renal artery. Left renal artery. Genitals. Spine: Cervical spine. Thoracic spine. Lumbar spine. Sacral spine. Fetus B: Anatomy ----- --------- The following structures appear normal: Head / Neck Cranium. Choroid plexus. Midline falx. Cerebellum. Cisterna magna. Heart / Thorax Situs. Cardiac position. Cardiac axis. Cardiac size. Cardiac rhythm. Abdomen Abdom. wall. Cord insertion. Stomach. Bladder. Genitals. Extremities / Right upper arm. Right forearm. Right hand. Left upper arm. Left forearm. Right upper leg. Right lower leg. Left upper leg. Left lower leg. The following structures could not be adequately visualized: Head / Neck Cavum septi pellucidi. Heart / Thorax 4-chamber view. Interventricular septum. Great vessels. Abdomen Small bowel. Large bowel. The following structures could not be examined: Head / Neck Lateral ventricles. Vermis. Neck. Nuchal fold. Face Lips. Profile. Nose. Nasal bone. Maxilla. Mandible. Orbits. Heart / Thorax RVOT view. LVOT view. 3-vessel view. 2-pmyuis-pafaaqv view. Aortic arch view. Bicaval view. Ductal arch view. Right lung. Left lung. Diaphragm. Abdomen Kidneys. Right renal artery. Left renal artery. Spine Cervical spine. Thoracic spine. Lumbar spine. Sacral spine. Extremities / Left hand. Right foot. Left foot. Skeleton Maternal Structures ----- --------- Uterus Visualized Cervix Suboptimal Approach - Transabdominal Right Ovary Not visualized Left Ovary Not visualized Cul de Sac Suboptimal Impression ----- --------- Monochorionic-diamniotic twin consistent with 15w 6d with an VICTOR M of 03/15/2025. Twin A is breech, Lower Right. EFW is 121 g at the 14%. Amniotic fluid MVP measures 2.1 cm. Twin B is variable, Upper Left. EFW is 135 g at the 36%. Amniotic fluid MVP measures 2.2 cm. Recommendations ----- --------- Please see [facility] documentation from today. Subsequent follow up or other follow up as clinically determined by primary OB provider unless otherwise specified by M. Results forwarded to ordering provider so they can follow up with the patient as necessary. Procedure Note Radiology, Radiologist, - 09/27/2024 THIS EXAM WAS PERFORMED AT [facility] NAME: ALIVIA HARTMAN MANOJ : 1995 SEX: F Accession Number: [id number] ORDERING PHYSICIAN: VIC EUGENE REFERRING PHYSICIAN: VIC EUGENE Coding ----- --------- Procedures [id number]: Ultrasound, uterus, real time with imagedocumentation, and maternal evaluation, after first trimester (> or = 14 weeks 0 days), transabdominalapproach; single or first gestation. 2 Indication ----- --------- Screening for Anatomic Survey, Imperial-Di twin , History ----- --------- OB History 1. Para 0 [id number] Maternal Assessment ----- --------- Physical Exam Height 157 cm, 5 ft 2 in. Weight 64 kg, 141 lb. Initialweight 64 kg, 141 lb. BMI 25.79 kg/m???. Initial BMI 25.79 kg/m???. Weight gain 0 kg, 0 lb Method ----- --------- Transabdominal ultrasound examination. View: Suboptimal view: limited byearly gestational age and positions ----- --------- Twin . Number of fetuses: 2. Monochorionic-diamniotic Dating ----- --------- LMP on: 06/08/2024 GA by LMP 15 w + 6 d VICTOR M by LMP: 03/15/2025 Ultrasound examination on: 09/27/2024 GA by U/S based upon: AC, BPD, Femur, HC GA by U/S 15 w + 3 d VICTOR M by U/S: 03/18/2025 GA by U/S based upon (Fetus 2): AC, BPD, Femur, HC GA by U/S (Fetus 2) 15 w + 5 d VICTOR M by U/S (Fetus 2): 03/16/2025 Assigned: based on the LMP, selected on 09/27/2024 Assigned GA 15 w + 6 d Assigned VICTOR M: 03/15/2025 Fetus A: General Evaluation ----- --------- Cardiac activity Present. FHR 144 bpm. Presentation: breech, Lower Right Placenta: Placental site: posterior Umbilical cord: Cord vessels: Not examined. Insertion site: not examined Amniotic fluid: Amount of AF: normal amount. MVP 2.1 cm Fetus B: General Evaluation ----- --------- Cardiac activity Present. FHR 146 bpm. Presentation: variable, UpperLeft Placenta: Placental site: posterior Umbilical cord: Cord vessels: 3 vessel cord. Insertion site: notexamined Amniotic fluid: Amount of AF: normal amount. MVP 2.2 cm Fetus A: Biometry ----- --------- Standard BPD 30.0 mm 15w 3d 28% Hadlock OFD 39.6 mm 15w 6d 52% Tamica HC 112.3 mm 15w 3d 16% Hadlock Cerebellum tr 14.3 mm 15w 2d 7% Hill AC 99.8 mm 16w 0d 58% Hadlock Femur 15.5 mm 14w 4d 6% Hadlock Humerus 16.9 mm 14w 6d 14% Tamica HC / AC 1.13 9% Hadlock EFW 121 g 14% Hadlock EFW discordance 10.4 % EFW (lb) 0 lb EFW (oz) 4 oz EFW by: Hadlock ([id number]) Extended Tibia 14.3 mm 15w 0d 17% Tamica CM 1.8 mm 2% Nicolaides Inner IOD 10.0 mm Outer IOD 21.8 mm Head / Face / Neck Cephalic index 0.76 12% Nicolaides Nasal bone: present Extremities / Bony Struc FL / BPD 0.52 1% Hadlock FL / HC 0.14 1% Hadlock FL / AC 0.16 <1% Hadlock Other Structures FHR 144 bpm Fetus B: Biometry ----- --------- Standard BPD 29.8 mm 15w 3d 25% Hadlock OFD 39.4 mm 15w 6d 50% Tamica HC 112.3 mm 15w 3d 16% Hadlock Cerebellum tr 15.1 mm 15w 6d 24% Hill AC 106.2 mm 16w 4d 75% Hadlock Femur 17.3 mm 15w 1d 18% Hadlock Humerus 17.9 mm 15w 1d 25% Tamica HC / AC 1.06 <1% Hadlock EFW 135 g 36% Hadlock EFW discordance 10.4 % EFW (lb) 0 lb EFW (oz) 5 oz EFW by: Hadlock ([id number]) Extended Tibia 14.7 mm 15w 0d 21% Tamica CM 2.5 mm 9% Nicolaides Head / Face / Neck Cephalic index 0.76 11% Nicolaides Nasal bone: not examined Extremities / Bony Struc FL / BPD 0.58 27% Hadlock FL / HC 0.15 10% Hadlock FL / AC 0.16 <1% Hadlock Other Structures FHR 146 bpm Fetus A: Anatomy ----- --------- The following structures appear normal: Head/Neck: Cranium. Choroid plexus. Midline falx. Cerebellum. Cisternamagna. Face: Profile. Nasal bone. Orbits. Heart/Thorax: Situs. Cardiac position. Cardiac axis. Cardiac size. Cardiacrhythm. Abdomen: Cord insertion. Stomach. Bladder. Extremities/Skeleton: Arms. Hands. Legs. Skeleton The following structures could not be adequately visualized: Head / Neck Cavum septi pellucidi. Face Maxilla. Mandible. Heart / Thorax 4-chamber view. Interventricular septum. Great vessels. Abdomen Small bowel. Large bowel. Extremities / Feet. Skeleton The following structures could not be examined: Head / Neck Lateral ventricles. Neck. Face Lips. Nose. Heart / Thorax RVOT view. LVOT view. 3-vessel view. 1-aapfmh-ppujwndbxch. Diaphragm. Abdomen Kidneys. Right renal artery. Left renal artery. Genitals. Spine: Cervical spine. Thoracic spine. Lumbar spine. Sacral spine. Fetus B: Anatomy ----- --------- The following structures appear normal: Head / Neck Cranium. Choroid plexus. Midline falx. Cerebellum. Cisternamagna. Heart / Thorax Situs. Cardiac position. Cardiac axis. Cardiac size.Cardiac rhythm. Abdomen Abdom. wall. Cord insertion. Stomach. Bladder. Genitals. Extremities / Right upper arm. Right forearm. Right hand. Left upper arm.Left forearm. Right upper leg. Right lower leg. Left upper leg. Left lower leg. The following structures could not be adequately visualized: Head / Neck Cavum septi pellucidi. Heart / Thorax 4-chamber view. Interventricular septum. Great vessels. Abdomen Small bowel. Large bowel. The following structures could not be examined: Head / Neck Lateral ventricles. Vermis. Neck. Nuchal fold. Face Lips. Profile. Nose. Nasal bone. Maxilla. Mandible. Orbits. Heart / Thorax RVOT view. LVOT view. 3-vessel view. 9-yizyzu-aqtsqkh view.Aortic arch view. Bicaval view. Ductal arch view. Right lung. Left lung. Diaphragm. Abdomen Kidneys. Right renal artery. Left renal artery. Spine Cervical spine. Thoracic spine. Lumbar spine. Sacral spine. Extremities / Left hand. Right foot. Left foot. Skeleton Maternal Structures ----- --------- Uterus Visualized Cervix Suboptimal Approach - Transabdominal Right Ovary Not visualized Left Ovary Not visualized Cul de Sac Suboptimal Impression ----- --------- Monochorionic-diamniotic twin consistent with 15w 6d with an EDDof 03/15/2025. Twin A is breech, Lower Right. EFW is 121 g at the 14%. Amniotic fluid MVP measures 2.1 cm. Twin B is variable, Upper Left. EFW is 135 g at the 36%. Amniotic fluid MVP measures 2.2 cm. Recommendations ----- --------- Please see M documentation from today. Subsequent follow up or other follow up as clinically determined byprimary OB provider unless otherwise specified by [facility]. Results forwarded to ordering provider so they can follow up with thepatient as necessary. Vic Valorie DO IMG OB US PROCEDURES Final Resul t * (ABNORMAL) RECURRENT VAGINITIS (HTRX) (09/23/2024 11:57 AM EDT) [facility] ATOPOBIUM VAGINAE 0.000 19.961 - 24.689 ppm 09/24/2024 6:03 AM EDT [facility] ATOPOBIUM VAGINAE Not Detected 19.961 - 24.689 ppm 09/24/2024 6:03 AM EDT [facility] BVAB 2,3 (BACTERIAL VAGINOSIS ASSOCIATED BACTERIA 2, 3); MOBILUNCUS SPP 0.000 19.961 - 24.689 ppm 09/24/2024 6:03 AM EDT [facility] BVAB 2,3 (BACTERIAL VAGINOSIS ASSOCIATED BACTERIA 2, 3); MOBILUNCUS SPP Not Detected 19.961 - 24.689 ppm 09/24/2024 6:03 AM EDT [facility] ANDREIA ALBICANS, PARAPSILOSIS, TROPICALIS 0.000 19.961 - 30.770 ppm 09/24/2024 6:03 AM EDT [facility] ANDREIA ALBICANS, PARAPSILOSIS, TROPICALIS Not Detected 19.961 - 30.770 ppm 09/24/2024 6:03 AM EDT [facility] ANDREIA GLABRATA 0.000 23.000 - 32.138 ppm 09/24/2024 6:03 AM EDT [facility] ANDREIA GLABRATA Not Detected 23.000 - 32.138 ppm 09/24/2024 6:03 AM EDT [facility] ANDREIA KRUSEI 0.000 23.000 - 32.271 ppm 09/24/2024 6:03 AM EDT [facility] ANDREIA KRUSEI Not Detected 23.000 - 32.271 ppm 09/24/2024 6:03 AM EDT [facility] CHLAMYDIA TRACHOMATIS 0.000 23.000 - 31.467 ppm 09/24/2024 6:03 AM EDT [facility] CHLAMYDIA TRACHOMATIS Not Detected 23.000 - 31.467 ppm 09/24/2024 6:03 AM EDT [facility] GARDNERELLA VAGINALIS 32.818(A) 19.961 - 24.689 ppm 09/24/2024 6:03 AM EDT [facility] GARDNERELLA VAGINALIS Detected(A) 19.961 - 24.689 ppm 09/24/2024 6:03 AM EDT [facility] MEGASPHAERA (TYPES 1, 2) 0.000 19.961 - 24.689 ppm 09/24/2024 6:03 AM EDT [facility] MEGASPHAERA (TYPES 1, 2) Not Detected 19.961 - 24.689 ppm 09/24/2024 6:03 AM EDT [facility] NEISSERIA GONORRHOEAE 0.000 23.000 - 32.117 ppm 09/24/2024 6:03 AM EDT [facility] NEISSERIA GONORRHOEAE Not Detected 23.000 - 32.117 ppm 09/24/2024 6:03 AM EDT [facility] TRICHOMONAS VAGINALIS 0.000 23.000 - 32.119 ppm 09/24/2024 6:03 AM EDT [facility] TRICHOMONAS VAGINALIS Not Detected 23.000 - 32.119 ppm 09/24/2024 6:03 AM EDT [facility] MYCOPLASMA GENITALIUM 0.000 19.961 - 24.689 ppm 09/24/2024 6:03 AM EDT [facility] MYCOPLASMA GENITALIUM Not Detected 19.961 - 24.689 ppm 09/24/2024 6:03 AM EDT [facility] Tissue 09/23/2024 11:5 7 AM EDT 09/24/2024 1:38 AM EDT us Vic Valorie DO LAB BLOOD ORDERABLES Final Resul t [employer] [facility] [place] [address] * IGP,APTIMA HPV,AGE GDLN (09/23/2024 11:12 AM EDT) AGE GDLN ACOG TESTING Note . [facility] Comment: TESTS RESULT FLAG UNITS REF RANGE LAB Clinician Provided Cytology Information Source.............Cervix Other.............. No. of containers..01 ThinPrep Vial Age Algo ACOG Jill... - 01 FLAG LEGEND: L-Low Normal,H-High Normal,LL-Alert Low,HH-Alert High <-Panic Low,>-Panic High,A-Abnormal,AA-Critical Abnormal Performed at: 01 =[facility] [place] [address] Yuni Barakat MD, IGP, RFX APTIMA HPV ASCU Note . [facility] Comment: TESTS RESULT FLAG UNITS REF RANGE LAB DIAGNOSIS: 02 NEGATIVE FOR INTRAEPITHELIAL LESION OR MALIGNANCY. Specimen adequacy: 02 Satisfactory for evaluation. No endocervical component is identified. An endocervical component is not commonly seen in the patient. Performed by: 02 Karen Fitzgerald [employer] ([facility]) . 02 Note: Note 02 The Pap smear is a screening test designed to aid in the detection of premalignant and malignant conditions of the uterine cervix. It is not a diagnostic procedure and should not be used as the sole means of detecting cervical cancer. Both false-positive and false-negative reports do occur. Test Methodology: Note 02 This liquid based ThinPrep(R) pap test was screened with the use of an image guided system. . 02 The HPV DNA reflex criteria were not met with this specimen result therefore, no HPV testing was performed. FLAG LEGEND: L-Low Normal,H-High Normal,LL-Alert Low,HH-Alert High <-Panic Low,>-Panic High,A-Abnormal,AA-Critical Abnormal Performed at: [address] [place] [address] Yuni Barakat MD, Performed at: = - [facility] [id number] Equipment Cleaner And Tester: Yuni Barakat MD, Phone: [phone] Performed at: [address] [id number] Equipment Cleaner And Tester: Yuni Barakat MD, Phone: [phone] 09/23/2024 11:1 2 AM EDT 09/23/2024 3:08 PM EDT Narrative [facility] - 09/27/2024 12:09 PM EDT SPATULA-ALONE CERVIX us Vic Valorie DO LAB BLOOD ORDERABLES Final Resul t [facility] * Pap Smear (09/23/2024 12:00 AM EDT) Swab Cervical swab / Unknown us Vic Valorie DO LAB CYTOLOGY ORDERABLES Final Re sult EXTERNAL LAB from Last 3 Months Additional Health Concerns Active Problems Noted Date Diagnosed Date OB Reminders 08/14/2024 Insurance Care Teams International Tax Manager Relationship Specialty Start Date End Date Marlon Laguna MD [address] [place] [address] PCP - General Family Medicine 08/29/23 Vic Eugene DO [address] [place] [address] [place] [address] Referring Physician Obstetrics and Gynecology 08/16/24
--- OUTSIDE RECORDS SUMMARY | 2024-11-24 12:13 | XMS_ITS | Encounter Summary ---
Author Organization [facility] Address [address] [place] [address] Care Team Providers Care Equipment Maintenance Supervisor Name Role Phone Marlon Laguna MD Primary Care Provider [phone] Saul Eugene DO Unavailable Encounter Details Date Type Department Care Team (Latest Contact Info) Description 11/23/2024 Travel Social History Tobacco Use Types Packs/Day [...] BCP OB [address] [place] [phone] Saul Eugene DO [address] [place], [place] [phone] 03/28/2025 2:00 PM EST Office Visit [facility] [address] [facility] [place] [address] Saul Eugene DO [address] [place] [address] documented as of this encounter Goals Goal Patient Goal Type Associated Problems Recent Progress Patient-Stated? Author Reminders Care Plan OB Reminders No Open Scheduling, Background documented as of this encounter Visit Diagnoses Not on filedocumented in this encounter Additional Health Concerns Active Problems Noted Date Diagnosed Date OB Reminders 08/14/2024 documented as of this encounter Care Teams Equipment Maintenance Supervisor Relationship Specialty Start Date End Date Marlon Laguna MD [address] [facility] [place] [address] PCP - General Family Medicine 08/29/23 Saul Eugene DO [address] [place] [address] Referring Physician Obstetrics and Gynecology 08/16/24 documented as of this encounter
--- OUTSIDE RECORDS SUMMARY | 2024-11-24 12:13 | XMS_ITS | Encounter Summary ---
Author Organization [facility] Address [address] [place] [address] Care Team Providers Care Oim Consultant Name Role Phone Marlon Laguna MD Primary Care Provider [phone] Saul Eugene DO Unavailable Encounter Details Date Type Department Care Team (Late st Contact Info) Description 10/12/2024 Abstract [facility] OB [address] [place] [phone] Saul Eugene [address] [place], [place] [phone] Social History Tobacco Use Types Packs/Day Years [...] Description 11/30/2024 1:00 PM EDT Routine [facility] OB [address] [place] [address] Saul Eugene, DO [address] [place] [address] 03/28/2025 2:00 PM EST Office Visit [facility] OB [address] [facility] [place] [address] Saul Eugene, [address] [place] [address] documented as of this encounter Goals Goal Patient Goal Type Associated Problems Recent Progress Patient-Stated? Author Reminders Care Plan OB Reminders No Open Scheduling, Background documented as of this encounter Visit Diagnoses Not on filedocumented in this encounter Additional Health Concerns Active Problems Noted Date Diagnosed Date OB Reminders 08/14/2024 documented as of this encounter Care Teams Oim Consultant Relationship Specialty Start Date End Date Marlon Laguna MD [address] [facility] [place] [address] PCP - General Family Medicine 08/29/23 Saul Eugene DO [address] [place] [address] Referring Physician Obstetrics and Gynecology 08/16/24 documented as of this encounter
--- OUTSIDE RECORDS SUMMARY | 2024-11-24 12:13 | XMS_ITS | Patient Health Record ---
Author Organization [facility] [place] Address [address] [place] [address] Care Team Providers Care Parking Attendant Name Role Phone Hrash Laguna Primary Care Provider Allergies No Known Allergies Results Component Value Reference Range Notes CBC AUTO DIFF Reviewed date:08/13/2024 04:12:48 PM Interpretation: Performing Lab: Notes/Report: [facility] , White Blood Count 5.9 4.0-11.0 10 3/uL Red Blood Count 4.11 4.20-5.40 10 6/uL Hemoglobin 12.4 12.0-16.0 g/dL Hematocrit 35.0 36.0-48.0 % Mean Corpuscular Volume 85.2 81.0-99.0 fL Mean Corpuscular Hemoglobin 30.2 26.7-34.0 pg Mean Corpuscular HGB Conc 35.4 29.9-35.2 g/dL Red Cell Distribution Width 12.3 11.0-15.0 % Platelet Count 244 150-450 10 3/uL Mean Platelet Volume 9.1 9.5-13.5 fL Neutrophils Percent Auto 73.4 43.0-75.0 % Lymphocytes Percent Auto 18.6 20.5-60.0 % Monocytes Percent Auto 7.5 1.7-12.0 % Eosinophils Percent Auto 0.3 0.9-7.0 % Basophils Percent Auto 0.0 0.2-2.0 % Immature Granulocytes Pct Auto 0.2 0.0-0.5 % Neutrophils Absolute Auto 4.3 1.4-6.5 10 3/uL Lymphocytes Absolute Auto 1.1 1.2-3.8 10 3/uL Monocytes Absolute Auto 0.4 0.3-0.8 10 3/uL Eosinophils Absolute Auto 0.0 0.0-0.7 10 3/uL Basophils Absolute Auto 0.0 0.0-0.1 10 3/uL Immature Granulocytes Abs Auto 0.01 0.00-0.03 10 3/uL Performing Lab: see note - [facility] LB DRUG SCREEN RAPID (URINE) Reviewed date:08/13/2024 04:12:48 PM Interpretation: Performing Lab: Notes/Report: [facility] , Cannabinoid Screen Urine NEGATIVE NEGATIVE Phencyclidine Screen Urine NEGATIVE NEGATIVE Cocaine Screen Urine NEGATIVE NEGATIVE Methamphetamines Screen Urine NEGATIVE NEGATIVE Opiate Screen Urine NEGATIVE NEGATIVE Amphetamine Screen Urine NEGATIVE NEGATIVE Benzodiazepines Screen Urine NEGATIVE NEGATIVE Tricyclic Antidepressant Urine NEGATIVE NEGATIVE Methadone Screen Urine NEGATIVE NEGATIVE Barbiturates Screen Urine NEGATIVE NEGATIVE Oxycodone Screen Urine NEGATIVE NEGATIVE Buprenorphine Screen Urine NEGATIVE NEGATIVE DRUG CLASS TEST SYSTEM CUT-OFF CONCENTRATIONS ARE FOLLOWS: AMP (Amphetamine): 500 ng/mL BAR (Barbiturates): 200 ng/mL BZO (Benzodiazepines): 150 ng/mL BUP (Buprenorphine): 10 ng/mL CHICHI (Cocaine): 150 ng/mL mAMP (Methamphetamine): 500 ng/mL MTD (Methadone): 200 ng/mL OPI (Opiates): 100 ng/mL OXY (Oxycodone): 100 ng/mL PCP (Phencyclidine): 25 ng/mL THC (Cannabinoids): 50 ng/mL TCA (Trycyclic Antidepressants): 300 ng/mL Performing Lab: see note ML - [facility] LB RUBELLA AB IGG Reviewed date:08/14/2024 11:30:48 AM Interpretation: Performing Lab: Notes/Report: [facility] , Rubella Antibodies, IgG <0.90 Immune > 0.99 index Non-immune <0.90 Equivocal 0.90 - 0.99 Immune >0.99 Performed at: [address] [id number] Dry Food Products Mixer: Gen Oviedo PhD, Phone: [phone] Performing Lab: see note [facility] LB HIV Ab/p24 Ag with Reflex Reviewed date:08/14/2024 11:30:48 AM Interpretation: Performing Lab: Notes/Report: [facility] , HIV Ab/p24 Ag Screen Non Reactive Non Reactive HIV-1/HIV-2 antibodies and HIV-1 p24 antigen were NOT detected. There is no laboratory evidence of HIV infection. HIV Negative Performed at: [address] [id number] Dry Food Products Mixer: Gen Oviedo PhD, Phone: [phone] Performing Lab: see note - [facility] LB Rapid Plasma Reagin, Quant Reviewed date:08/14/2024 12:25:13 PM Interpretation: Performing Lab: Notes/Report: [facility] , Rapid Plasma Reagin, Quant Non Reactive NonRea<1:1 titer Please Note: This test does not meet current guidelines for screening and diagnosis of syphilis. This test is intended for following treatment response in patients being treated for syphilis infection. To screen for syphilis infection, a reflex cascade that includes both RPR and a treponema-specific assay should be utilized, such as Treponema pallidum (Syphilis) Screening [place] (315532) or Rapid Plasma Reagin (RPR) Test With Reflex to Quantitative RPR and Confirmatory Treponema pallidum Antibodies (534982). Performed at: [address] [id number] Dry Food Products Mixer: Gen Oviedo PhD, Phone: [phone] Performing Lab: see note [facility] LB HCV Antibody RFX to Quant PC R Reviewed date:08/14/2024 11:30:48 AM Interpretation: Performing Lab: Notes/Report: [facility] , HCV Ab Non Reactive Non Reactive Interpretation: Comment . Not infected with HCV unless early or acute infection is suspected (which may be delayed in an immunocompromised individual), or other evidence exists to indicate HCV infection. Performing Lab: see note [facility] HBsAg Screen Reviewed date:08/14/2024 12:25:02 PM Interpretation: Performing Lab: Notes/Report: [facility] , HBsAg Screen Negative Negative Performed at: [address] [id number] Dry Food Products Mixer: Gen Oviedo PhD, Phone: [phone] Performing Lab: see note [facility] Type and Screen Reviewed date:08/13/2024 04:12:48 PM Interpretation: Performing Lab: Notes/Report: [facility] , Blood Type A Positive Antibody Screen NEGATIVE GLYCOHEMOGLOBIN A1C Reviewed date:08/13/2024 04:12:48 PM Interpretation: Performing Lab: Notes/Report: [facility] , Glycohemoglobin A1C 5.4 4.5-6.2 % ADA RECOMMENDED LIMIT 4.0 - 6.0 ADA THERAPEUTIC TARGET < 7.0 ACTION SUGGESTED > 7.0 Estimated Average Glucose 108 Performing Lab: see note ML - [facility] LB IGP,Aptima HPV,Age Gdln Reviewed date:02/29/2024 10:30:54 AM Interpretation: Performing Lab: Notes/Report: BRUSH-SPATULA CERVIX ENDOCERVIX [facility] , Age Gdln ACOG Testing Note . TESTS RESULT FLAG UNITS REF RANGE LAB Clinician Provided Cytology Information Source.............Cervi x;Endocervix No. of containers..01 ThinPrep Vial Age Algo ACOG Jill... - 01 FLAG LEGEND: L-Low Normal,H-High Normal,LL-Alert Low,HH-Alert High <-Panic Low,>-Panic High,A-Abnormal,AA-Criti winsome Abnormal Performed at: 01 =G [facility] [address] [place] [address] Yuni Barakat MD, IGP, rfx Aptima HPV ASCU Note . TESTS RESULT FLAG UNITS REF RANGE LAB DIAGNOSIS: 02 NEGATIVE FOR INTRAEPITHELIAL LESION OR MALIGNANCY. Specimen adequacy: 02 Satisfactory for evaluation. Endocervical and/or squamous metaplastic cells (endocervical component) are present. Performed by: Mateus Coyle Picker Packer (ASC) . 02 Note: Note 02 The Pap [...] L-Low Normal,H-High Normal,LL-Alert Low,HH-Alert High <-Panic Low,>-Panic High,A-Abnormal,AA-Criti winsome Abnormal Performed at: [address] [facility] [address] [place] [address] Yuni Barakat MD, Performed at: = - [facility] [address], [place] [id number] Dry Food Products Mixer: Yuni Barakat MD, Phone: [phone] Performed at: - [facility] [id number] Dry Food Products Mixer: Yuni Barakat MD, Phone: [phone] Performing Lab: see note LC - [facility] LB IGP,Aptima HPV,Age Gdln Reviewed date:09/27/2024 07:57:34 PM Interpretation: Performing Lab: Notes/Report: SPATULA-ALONE CERVIX [facility] , Age Gdln ACOG Testing Note . TESTS RESULT FLAG UNITS REF RANGE LAB Clinician Provided Cytology Information Source.............Cervi x Other..............Pregn ant No. of containers..01 ThinPrep Vial Age Algo ACOG Jill... -23 06 FLAG LEGEND: L-Low Normal,H-High Normal,LL-Alert Low,HH-Alert High <-Panic Low,>-Panic High,A-Abnormal,AA-Criti winsome Abnormal Performed at: 01 =[facility] [place] [address] [facility] [place] [address] Yuni Baraakt MD, IGP, rfx Aptima HPV ASCU Note . TESTS RESULT FLAG UNITS REF RANGE LAB DIAGNOSIS: 02 NEGATIVE FOR INTRAEPITHELIAL LESION OR MALIGNANCY. Specimen adequacy: 02 Satisfactory for evaluation. No endocervical component is identified. An endocervical component is not commonly seen in the patient. Performed by: 02 Karen Fitzgerald Drafting Instructor ([facility]) . 02 Note: Note 02 The Pap [...] L-Low Normal,H-High Normal,LL-Alert Low,HH-Alert High <-Panic Low,>-Panic High,A-Abnormal,AA-Criti winsome Abnormal Performed at: [address] [facility] [address] [place] [address] Yuni Barakat MD, Performed at: =G - [facility] [address] [id number] Dry Food Products Mixer: Yuni Barakat MD, Phone: [phone] Performed at: - [facility] [id number] Dry Food Products Mixer: Yuni Barakat MD, Phone: [phone] Performing Lab: see note LC - [facility] LB Urine Culture, Routine Reviewed date:08/15/2024 09:38:56 AM Interpretation: Performing Lab: Notes/Report: [facility] , Urine Culture, Routine See Below For Report Urine Culture, Routine Urine Culture, Routine No growth Urine Culture, Routine Urine Culture, Routine Performed at: - [facility] [place] Urine Culture, Routine Urine Culture, Routine [address] [place], [place] [id number] Urine Culture, Routine Urine Culture, Routine Dry Food Products Mixer: Gen Oviedo PhD, Phone: [phone] Urine Culture, Routine Performing Lab: see note LC - [facility] LB SEE REPORT - Talent Acquisition Sourcer Id information not found for OBX-specific honey producer legend Reason For Referral No Information Medications Medication SIG (Take, Route, Frequency, Duration) Notes Start Date End Date Status Imitrex 100 MG 1 tablet at least 2 hours between doses as needed Orally Twice a day 04/09/2024 Active Flonase Allergy Relief 50 MCG/ACT 1 spray in each nostril Nasally Once a day for 60 Active Vitamin D 50 MCG (1999) 1 capsule Ora lly Once a day Active Magnesium 200 MG 2 tablets with a jonah l Orally Once a day Active Immunizations Vaccine Route Administration Date Status Comme nts Tdap Unknown 04/26/2013 Administered Social History Tobacco Use: Social History Observation Description Date Details (start date - stop date) Never Smoker NA - NA Tobacco Use/Smoking Question Answer Notes Patient is a nonsmoker Alcohol Screen (Audit-C) Question Answer Notes Did you have a drink contain ing alcohol in the past year? Yes How often did you have 6 or more drinks on one occasion in the past year? Never (0 point) How many drinks did you have on a typical day when you were drinking in the past year? 1 or 2 drinks (0 point) How often did you have a dri nk containing alcohol in the past year? Less than monthly (1 point) Points 1 Interpretation Negative AUDIT-C (Standard) Question Answer Notes Did you have a drink containing alcohol in the p ast year? No Points 0 Interpretation Negative Section Notes: Pursuing RN now () Pursuing RN now () Pursuing RN now () Pursuing RN now () Pursuing RN now () Pursuing RN now () Pursuing RN now () Pursuing RN now () Pursuing RN now () Pursuing RN now () Pursuing RN now () Pursuing RN now () Pursuing RN now () Pursuing RN now () Pursuing RN now () Pursuing RN now () Problems Problem Type SNOMED Code ICD Code Onset Dates Problem Status W/U Status Risk Notes Problem 54064268 Other chronic pain (G89.29) Active confirmed Problem 01943970 Anxiety (F41.9) Active confirmed Problem Palpitation (R00.2) Active confirmed Problem Migraine (72943321) Migraine (G43.909) Active confirmed Problem 516055492 Hypoglycemia (E16.2) Active confirmed Problem Seasonal allergy (460518255) Seasonal allergies (J30.2) Active confirmed Problem 95790819 Left-sided face pain (R51) Active confirmed Problem [id number] Trigeminal neuralgia of left side of face (G50.0) Active confirmed Vital Signs Blood pressure diastolic 78 mm Hg 04/09/2024 Height 62.5 in 04/09/2024 Blood pressure systolic 126 mm Hg 04/09/2024 Weight 143.8 lbs 04/09/2024 BMI 25.88 kg/m2 04/09/2024 Encounters Encounter Location Date Provider Diagnosis [facility] [address] [place] [address] 12/18/2023 Harsh Hoy Headache, unspecifie d R51.9 [facility] [address] [place] [address] 12/18/2023 Harsh Hoy [facility] [address] [place] [address] 04/09/2024 Harsh Hoy Migraine G43.909 Assessments Encounter Date Diagnosis (ICD Code) Assessment Notes Treatment Notes Treatment Clinical Notes Section Notes 04/09/2024 Migraine (ICD-10 - G43.909) 12/18/2023 Headache, unspecified (ICD-10 - R51.9) Plan Of Treatment Pending Test Test Name Order Date CMP (COMPLETE METABOLIC PANEL) HEMOGLOBIN A1C (GLYCO) 03/19/2023 IRON, TOTAL 03/19/2023 CBC WITH DIFF 03/19/2023 IGE 10/10/2022 IGG 10/10/2022 IGA 10/10/2022 IGM 10/10/2022 ANTISTREPTOLYSIN O AB (ASO) 03/19/2023 CBC AUTO DIFF 03/22/2023 FERRITIN 03/22/2023 IRON 03/22/2023 SED RATE WESTERGREN 03/19/2023 MRI BRAIN WO CON 04/09/2024 THYROID PANEL (T4/TSH/FREE T3) 3 ECHOCARDIO M/2D COMPLETE 03/19/2023 Holter Monitor - 3 days up to 14 days Insurance Providers Payer Name Payer Address Payer Phone Subscriber Number Group Number Insured Name Patient Relationship to Insured Coverage Start Date Coverage End Date [employer] [address] [place] [phone] [id number] Binta Bunch Spouse - patient is the spouse of the insured Medical (General) History Medical History History ICD Code Abdominal migraines Anxiety Trigeminal neuralgia Surgical History Surgery Date(Month/Year) wisdom teeth Appendectomy 08/08/2018 Hospitalization History Reason Date(Month/Year) See above
--- OUTSIDE RECORDS SUMMARY | 2024-11-24 12:13 | XMS_ITS | Encounter Summary ---
Author Organization [facility] Address [address] [place] [address] Care Team Providers Care General Intern Name Role Phone Marlon Laguna MD Primary Care Provider [phone] Saul Eugene DO Unavailable Encounter Details Date Type Department Care Team (Late st Contact Info) Description 11/02/2024 Abstract [facility] OB [address] [place] [address] Ximena Aly MA Social History Tobacco Use Types Packs/Day Years [...] Description 11/30/2024 1:00 PM EDT Routine [facility] OB [address] [place] [address] Saul Eugene DO [address] [place] [address] 03/28/2025 2:00 PM EST Office Visit [facility] OB [address] [facility] [place] [address] Saul Eugene DO [address] [facility] [place] [address] documented as of this encounter Goals Goal Patient Goal Type Associated Problems Recent Progress Patient-Stated? Author Reminders Care Plan OB Reminders No Open Scheduling, Background documented as of this encounter Visit Diagnoses Not on filedocumented in this encounter Additional Health Concerns Active Problems Noted Date Diagnosed Date OB Reminders 08/14/2024 documented as of this encounter Care Teams General Intern Relationship Specialty Start Date End Date Marlon Laguna MD [address] [facility] [place] [place] [address] PCP - General Family Medicine 08/29/23 Saul Eugene DO [address] [place] [address] Referring Physician Obstetrics and Gynecology 08/16/24 documented as of this encounter
--- OUTSIDE RECORDS SUMMARY | 2024-11-24 12:13 | XMS_ITS | Encounter Summary ---
Author Organization [facility] Address [address] [place] [address] Care Team Providers Care Radio Host Name Role Phone Marlon Laguna MD Primary Care Provider [phone] Saul Eugene DO Unavailable Encounter Details Date Type Department Care Team (Late st Contact Info) Description 09/12/2023 Clinisync Result Encounter [facility] External Department Unsolicited Saul Eugene, DO [address] [place], [place] [phone] Social History Tobacco Use Types Packs/Day Years [...] PM EDT Routine [facility] OB [address] [place] [phone] Saul Eugene, DO [address] [place], [place] [phone] 03/28/2025 2:00 PM EST Office Visit [facility] OB [address] [facility] [place] [phone] Saul Eugene, DO [address] [facility] [place] [address] documented as of this encounter Procedures Procedure Name Priority Date/Time Associated Diagnosis Comments US BREAST LT LIMITED 09/12/2023 2:31 PM EDT documented in this encounter Results * US BREAST LT LIMITED (09/12/2023 2:31 PM EDT) Anatomical Region Laterality Modality Other 09/12/2023 2:31 PM EDT Narrative 09/12/2023 2:32 PM EDT [address] [address] Ultrasound Report Signed Patient: MINNIE SWIFT MR#: [id number] : 1995 Acct:[id number] Age/Sex: 28 / F ADM Date: 09/10/23 Loc: US Attending Dr: Saul Eugene D.O. Ordering Physician: Saul Eugene D.O. Date of Service: 09/10/23 Procedure(s): US breast LT limited Accession Number(s): [id number] cc: Saul Eugene D.O.; Marlon Laguna M.D. Patient Name: MINNIE SWIFT MR#: [id number] : 1995 Exam Date: 09/10/2023 Ordering Doctor: DR Saul Eugene . RADIOLOGY REPORT PROCEDURE: US BREAST LT LIMITED COMPARISON: None. INDICATIONS: mass of left breast, unspecified quadrant N63.20 TECHNIQUE: Breast ultrasound was performed, with evaluation focusing only on specific areas of concern. FINDINGS: DIAGNOSTIC CATEGORY 0--INCOMPLETE: NEED ADDITIONAL IMAGING EVALUATION. LEFT BREAST: No abnormal or suspicious findings via ultrasound evaluation. If palpable finding persists diagnostic mammography of left breast should be performed for further evaluation. RECOMMENDATIONS: MAMMOGRAPHIC VIEWS: LEFT BREAST - MLO, CC PLEASE NOTE: A NORMAL ULTRASOUND EXAMINATION DOES NOT EXCLUDE THE POSSIBILITY OF BREAST CANCER. A CLINICALLY SUSPICIOUS PALPABLE LUMP SHOULD BE BIOPSIED. Dictated by: Daljit Chamberlain M.D. on 09/12/2023 at 14:28 Approved by: Daljit Chamberlain M.D. on 09/12/2023 at 14:31 Dictated By: Daljit Chamberlain M.D. Signed By: 09/12/23 1432 DD/ 1431 TD/TT: Slurry Control Operator Helper: Procedure Note Radiology, Radiologist, MD - 09/12/2023 [place] [address] Ultrasound Report Signed Patient: MINNIE SWIFT AMR#: [id number] : 1995Acct:[id number] Age/Sex: 28 FADM Date: 09/10/23 Loc: US Attending Dr: Saul Eugene D.O. Ordering Physician: Saul Eugene D.O. Date of Service: 09/10/23 Procedure(s): US breast LT limited Accession Number(s): [id number] cc: Saul Eugene D.O.; Marlon Laguna M.D. Patient Name: MINNIE SWIFT MR#: [id number] : 1995 Exam Date: 09/10/2023 Ordering Doctor: DR Saul Eugene . RADIOLOGY REPORT PROCEDURE: US BREAST LT LIMITED COMPARISON: None. INDICATIONS: mass of left breast, unspecified quadrant N63.20 TECHNIQUE: Breast ultrasound was performed, with evaluation focusingonly on specific areas of concern. FINDINGS: DIAGNOSTIC CATEGORY 0--INCOMPLETE: NEED ADDITIONAL IMAGING EVALUATION. LEFT BREAST: No abnormal or suspicious findings via ultrasoundevaluation. If palpable finding persists diagnostic mammography of left breast shouldbe performed for further evaluation. RECOMMENDATIONS: MAMMOGRAPHIC VIEWS: LEFT BREAST - MLO, CC PLEASE NOTE: A NORMAL ULTRASOUND EXAMINATION DOES NOT EXCLUDE THEPOSSIBILITY OF BREAST CANCER. A CLINICALLY SUSPICIOUS PALPABLE LUMP SHOULD BEBIOPSIED. Dictated by: Daljit Chamberlain M.D. on 09/12/2023 at 14:28 Approved by: Daljit Chamberlain M.D. on 09/12/2023 at 14:31 Dictated By: Daljit Chamberlain M.D. Signed By:09/12/23 1432 DD/ 143 TD/TT: Slurry Control Operator Helper: Saul Eugene DO [facility] Final Result documented in this encounter Visit Diagnoses Not on filedocumented in this encounter Care Teams Radio Host Relationship Specialty Start Date End Date Marlon Laguna MD [address] [facility] [place] [address] PCP - General Family Medicine 08/29/23 Saul Eugene DO [address] [place] [address] [place] [address] Referring Physician Obstetrics and Gynecology 08/16/24 documented as of this encounter
--- OUTSIDE RECORDS SUMMARY | 2024-11-24 12:13 | XMS_ITS | Encounter Summary ---
Author Organization [facility] Address [address] [place] [address] Care Team Providers Care Aeronautical Engineering Officer Name Role Phone Marlon Laguna MD Primary Care Provider [phone] Saul Eugene DO Unavailable Encounter Details Date Type Department Care Team (Late st Contact Info) Description 11/03/2023 Clinisync Result Encounter [facility] External Department Unsolicited Saul Eugene, DO [address] [place], [place] [phone] Social History Tobacco Use Types Packs/Day Years [...] Routine [facility] [address] [place] [phone] Saul Eugene, DO [address] [place], [place] [phone] 03/28/2025 2:00 PM EST Office Visit [facility] [address] [facility] [place] [address] Saul Eugene, DO [address] [facility] [place] [address] documented as of this encounter Procedures Procedure Name Priority Date/Time Associated Diagnosis Comments MM TOMOSYNTHESIS DIAGNOSTIC BI 11/03/2023 1:17 PM EDT documented in this encounter Results * MM TOMOSYNTHESIS DIAGNOSTIC BI (11/03/2023 1:17 PM EDT) Anatomical Region Laterality Modality Other 11/03/2023 1:17 PM EDT Narrative 11/03/2023 1:18 PM EDT The [address] [address] Mammography Report Signed Patient: MINNIE SWIFT MR#: [id number] : 1995 Acct:[id number] Age/Sex: 28 / F ADM Date: 11/03/23 Loc: MAMMO Attending Dr: Saul Eugene D.O. Ordering Physician: Saul Eugene D.O. Results: Date of Service: 11/03/23 Follow Up: Procedure(s): MM tomosynthesis diagnostic BI Accession Number(s): [id number] cc: Saul Eugene D.O.; Marlon Laguna M.D. Patient Name: MINNIE SWIFT MR#: [id number] : 1995 Exam Date: 11/03/2023 Ordering Doctor: DR Saul Eugene . RADIOLOGY REPORT PROCEDURE: MM TOMOSYNTHESIS DIAGNOSTIC BI COMPARISON: US BREAST LT LIMITED, 09/10/2023. INDICATIONS: Mass of Left Breast Calculator Name NCI Breast Cancer Risk Assessment Tool 5 Year Breast Cancer Risk Not Applicable. Lifetime Breast Cancer Risk Not Applicable. Personal Breast Cancer No Personal Ovarian Cancer No Treatments None Family Cancers None LOCATION: The [facility] BREAST COMPOSITION: There are scattered areas of fibroglandular density. FINDINGS: DIAGNOSTIC CATEGORY 1--NEGATIVE. Scattered benign-appearing lymph nodes are present. RIGHT BREAST: No significant suspicious finding. [place] marker upper outer quadrant, anterior breast corresponding to the patient's palpable abnormality. No mammographic abnormality LEFT BREAST: No significant suspicious finding. RECOMMENDATIONS: No mammographic or ultrasound abnormality to correspond to the patient's left breast mass. Further evaluation should be based on CLINICAL EVALUATION. PLEASE NOTE: A NORMAL MAMMOGRAM DOES NOT EXCLUDE THE POSSIBILITY OF BREAST CANCER. A CLINICALLY SUSPICIOUS PALPABLE LUMP SHOULD BE BIOPSIED. Dictated by: Farshad Fitzgerald MD on 11/03/2023 at 13:12 Approved by: Farshad Fitzgerald MD on 11/03/2023 at 13:17 Dictated By: Farshad Fitzgerald M.D. Signed By: 11/03/23 1318 DD/ 16 TD/TT: Streetcar Motorman: Procedure Note Radiology, Radiologist, MD - 11/03/2023 [place] [address] Mammography Report Signed Patient: MINNIE SWIFT AMR#: [id number] : 1995Acct:[id number] Age/Sex: Date: 11/03/23 Loc: MAMMO Attending Dr: Saul Eugene D.O. Ordering Physician: Saul Eugene D.O.Results: Date of Service: 11/03/23Follow Up: Procedure(s): MM tomosynthesis diagnostic BI Accession Number(s): [id number] cc: Saul Eugene D.O.; Marlon Laguna M.D. Patient Name: MINNIE SWIFT MR#: [id number] : 1995 Exam Date: 11/03/2023 Ordering Doctor: DR Saul Eugene . RADIOLOGY REPORT PROCEDURE: MM TOMOSYNTHESIS DIAGNOSTIC BI COMPARISON: US BREAST LT LIMITED, 09/10/2023. INDICATIONS: Mass of Left Breast Calculator Name NCI Breast Cancer Risk Assessment Tool 5 Year Breast Cancer Risk Not Applicable. Lifetime Breast Cancer Risk Not Applicable. Personal Breast Cancer No Personal Ovarian Cancer No Treatments None Family Cancers None LOCATION: The [facility] BREAST COMPOSITION: There are scattered areas of fibroglandulardensity. FINDINGS: DIAGNOSTIC CATEGORY 1--NEGATIVE. Scattered benign-appearing lymph nodes are present. RIGHT BREAST: No significant suspicious finding. [place] marker upperouter quadrant, anterior breast corresponding to the patient's palpableabnormality. No mammographic abnormality LEFT BREAST: No significant suspicious finding. RECOMMENDATIONS: No mammographic or ultrasound abnormality to correspond to the patient'sleft breast mass. Further evaluation should be based on CLINICAL EVALUATION. PLEASE NOTE: A NORMAL MAMMOGRAM DOES NOT EXCLUDE THE POSSIBILITY OFBREAST CANCER. A CLINICALLY SUSPICIOUS PALPABLE LUMP SHOULD BE BIOPSIED. Dictated by: Farshad Fitzgerald MD on 11/03/2023 at 13:12 Approved by: Farshad Fitzgerald MD on 11/03/2023 at 13:17 Dictated By: Farshad Fitzgerald M.D. Signed By:11/03/23 1318 DD/ TD/TT: Streetcar Motorman: Saul Eugene DO [facility] Final Result documented in this encounter Visit Diagnoses Not on filedocumented in this encounter Care Teams Aeronautical Engineering Officer Relationship Specialty Start Date End Date Marlon Laguna MD [address] [place] [address] PCP - General Family Medicine 08/29/23 Saul Eugene DO [address] [place] [address] [place] [address] Referring Physician Obstetrics and Gynecology 08/16/24 documented as of this encounter
--- OUTSIDE RECORDS SUMMARY | 2024-11-24 12:13 | XMS_ITS | Patient Health Record ---
Author Organization [facility] vices Address [address] [place], [place] [id number] Care Team Providers Care Vacuum Pan Tender Name Role Phone Heaven Vera Unavailable [phone] Yuliet Lozano Unavailable [phone] Allergies No Known Allergies Reason For Referral No Information Medications Medication SIG (Take, Route, Frequency, Duration) Notes Start Date End Date Status Wilmer 24 FE 1-20 MG-MCG(24) 1 tablet Orally Once a day Not-Taking Aspirin 81 Active Cyproheptadine HCl 4 MG 1 tablet Orally Twice a day Not-Taking Lexapro 20 MG 1 tablet Orally Once a day Not-Taking Active Amoxicillin 500 MG 1 tablet Orally Thre e times a day for 7 days 09/15/2023 Not-Takin g Gabapentin 100 MG 1 capsule Orally Onc e a day Not-Taking Ibuprofen 800 MG 1 tablet with food o r milk as needed Orally every 8 hrs for 7 days 09/15/2023 Not-Takin g Diflucan 150 MG 1 tablet Orally once for 1 days 09/15/2023 Not-Taking Social History Sex Assigned At : Social History Observation Description Sex Assigned At Female Tobacco Use/Smoking Question Answer Notes Additional Findings: Tobacco Non-User Current no n-smoker PRAPARE Question Answer Notes Date Completed/Updated: 06/20/2023 larry nt entered data What is your current housing situation? I have housing patient entered data Are you worried about losing your housing? No patient entered data What is the highest level of school that you have finished? 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 Check all that apply I do not have problems meeting my needs patient entered data Has lack of transportation k ept you from medical appointments, meetings, work or from getting things needed for daily living? No patient entered razia a How often do you see or talk to people that you care about and feel close to? (For example: talking to friends on the phone, visiting friends or family, going to mandaen or club meetings) More than 5 times a week patient entered data How stressed are you? Stress is when someone feels tense, nervous, anxious, or can't sleep at night because their mind is troubled A little bit patient entered data In the past year have you sp ent more than 2 nights in a row in a longterm, mcc, group home center, or juvenile correctional facility? No patient entered razia a Do you feel physically and emotionally safe where you currently live? Yes patient entered data In the past year, have you b een afraid of your partner or ex-partner? No patient entered data Are you a refugee? No patient en tered data What country are you from? [place] hannah chinchilla entered data Problems Problem Type SNOMED Code ICD Code Onset Dates Problem Status W/U Status Risk Notes Problem BMI 25.0-25.9,ad ult (Z68.25) Active confirmed Vital Signs Heart Rate 77 /min 11/19/2024 Blood pressure diastolic 63 mm Hg 11/19/2024 Height-cm 157.48 cm 11/19/2024 Weight-kg 66.23 kg 11/19/2024 Height 62 in 11/19/2024 Blood pressure systolic 101 mm Hg 11/19/2024 Weight 146 lbs 11/19/2024 BMI 26.7 kg/m2 11/19/2024 Encounters Encounter Location Date Provider Diagnosis Dental Main [address] [place] [phone] 02/23/2024 Heaven French-Hudley Necrosis of pulp K 04.1 and Encounter for dental examination and cleaning without abnormal findings Z01.20 Dental Main [address] [place], [place] [id number] 11/19/2024 Yuliet Lozano Dental caries into dentine K02.62 and Encounter for dental examination and cleaning with abnormal findings Z01.21 Assessments Encounter Date Diagnosis (ICD Code) Assessment Notes Treatment Notes Treatment Clinical Notes Section Notes 02/23/2024 Necrosis of pulp (ICD-10 - K04.1) 11/19/2024 Dental caries into dentine (ICD-10 - K02.62) 02/23/2024 Encounter for dental examination and cleaning without abnormal findings (ICD-10 - Z01.20) 11/19/2024 Encounter for dental examination and cleaning with abnormal findings (ICD-10 - Z01.21) Plan Of Treatment Next Appt Details Provider Name:Deshawn Moon , 06/10/2025 09:45:00 AM, [address] [place], [place], [id number], Insurance Providers Payer Name Payer Address Payer Phone Subscriber Number Group Number Insured Name Patient Relationship to Insured Coverage Start Date Coverage End Date [facility] [address] [place], [place] [id number] Sukhwinder Pedro Spouse - patient is the spouse of the insured
--- OUTSIDE RECORDS SUMMARY | 2024-11-24 12:13 | XMS_ITS | Encounter Summary ---
Author Organization [facility] Address [address] [place] [address] Care Team Providers Care Gate Cutter Name Role Phone Marlon Laguna MD Primary Care Provider [phone] Saul Eugene DO Unavailable Encounter Details Date Type Department Care Team (Late st Contact Info) Description 10/01/2024 Orders Only [facility] [address] [place] [address] Ximena Aly MA Social History Tobacco [...] Routine [facility] OB [address] [place] [address] Saul Eugene, [address] [place] [address] 03/28/2025 2:00 PM EST Office Visit [facility] [address] [facility] [place] [phone] Saul Eugene DO [address] [facility] [place] [address] documented as of this encounter Goals Goal Patient Goal Type Associated Problems Recent Progress Patient-Stated? Author Reminders Care Plan OB Reminders No Open Scheduling, Background documented as of this encounter Procedures Procedure Name Priority Date/Time Associated Diagnosis Comments PAP SMEAR Routine 09/23/2024 12:00 AM EDT documented in this encounter Results * Pap Smear (09/23/2024 12:00 AM EDT) Swab Cervical swab / Unknown Saul Eugene DO LAB CYTOLOGY ORDERABLES Final Re sult EXTERNAL LAB documented in this encounter Visit Diagnoses Not on filedocumented in this encounter Additional Health Concerns Active Problems Noted Date Diagnosed Date OB Reminders 08/14/2024 documented as of this encounter Care Teams Gate Cutter Relationship Specialty Start Date End Date Marlon Laguna MD [address] [facility] [place] [address] PCP - General Family Medicine 08/29/23 Saul Eugene DO [address] [place] [address] Referring Physician Obstetrics and Gynecology 08/16/24 documented as of this encounter
--- OUTSIDE RECORDS SUMMARY | 2024-11-24 12:13 | XMS_ITS | Encounter Summary ---
Author Organization [facility] Address [address] [place] [address] Care Team Providers Care Automobile Service Station Manager Name Role Phone Marlon Laguna MD Primary Care Provider [phone] Saul Eugene DO Unavailable Encounter Details Date Type Department Care Team (Late st Contact Info) Description 11/16/2024 Bamboo flowsheet [facility] OB [address] [place] [address] Saul Eugene [address] [place], [facility] Social History Tobacco Use Types Packs/Day Years [...] EDT Routine [facility] OB [address] [place] [address] Saul Eugene, [address] [place] [address] 03/28/2025 2:00 PM EST Office Visit [facility] B[facility] OB [address] [facility] [phone] Saul Eugene, [address] [facility] [place] [address] documented as of this encounter Goals Goal Patient Goal Type Associated Problems Recent Progress Patient-Stated? Author Reminders Care Plan OB Reminders No Open Scheduling, Background documented as of this encounter Visit Diagnoses Not on filedocumented in this encounter Additional Health Concerns Active Problems Noted Date Diagnosed Date OB Reminders 08/14/2024 documented as of this encounter Care Teams Automobile Service Station Manager Relationship Specialty Start Date End Date Marlon Laguna MD [address] [place] [address] PCP - General Family Medicine 08/29/23 Saul Eugene DO [address] [place] [address] Referring Physician Obstetrics and Gynecology 08/16/24 documented as of this encounter
--- OUTSIDE RECORDS SUMMARY | 2024-11-24 12:13 | XMS_ITS | Encounter Summary ---
Author Organization [facility] Address [id number] [address] [place] [address] Care Team Providers Care Order Department Supervisor Name Role Phone Belén Rooney MD Primary Care Provider [phone] Encounter Details Date Type Department Care Team (Late st Contact Info) Description 04/26/2021 Orders Only [facility] Neurology - Farshad Ramsay MD [address] [address] Farshad Ramsay MD [address] [place] [address] Trigeminal neuralgia Social History Tobacco Use Types Packs/Day Years [...] AM EDT Sexual Orientation Not on file COVID-19 Exposure Response Date Recorded In the last month, have you been in contact with someone who was confirmed or suspected to have Coronavirus / COVID-19? No / Unsure 04/23/2021 9:37 AM EST documented as of this encounter Plan of Treatment Upcoming Encounters Date Type Department Care Team (Late st Contact Info) Description 11/29/2024 3:00 PM EDT Appointment [facility] [address] [place] [address] 12/06/2024 8:00 AM EDT Appointment [facility] [address] [place] [address] 01/10/2025 8:30 AM EDT Office Visit Maternal- Medicine at [facility] [address] [place] [address] Jefferson Nava MD [address] [facility], [address] [place] [address] documented as of this encounter Procedures Procedure Name Priority Date/Time Associated Diagnosis Comments CBC WITH AUTO DIFFERENTIAL Routine 04/25/2021 Trigeminal neuralgia LIVER PANEL Routine 04/25/2021 Trigeminal neuralgia documented in this encounter Results * CBC auto differential (04/25/2021) 04/25/2021 us Farshad Ramsay MD LAB BLOOD ORDERABLES Final Result Performing Organization Address [facility] de Phone Number MANUALLY TRANSCRIBED RESULTS * Liver panel (04/25/2021) 04/25/2021 Farshad Ramsay MD LAB BLOOD ORDERABLES Edited Result - Final Performing Organization Address [facility] de Phone Number MANUALLY TRANSCRIBED RESULTS documented in this encounter Visit Diagnoses Diagnosis Trigeminal neuralgia documented in this encounter Care Teams Order Department Supervisor Relationship Specialty Start Date End Date Belén Rooney MD [address] [place] [phone] PCP - General Family Medicine 09/29/18 documented as of this encounter
--- OUTSIDE RECORDS SUMMARY | 2024-11-24 12:13 | XMS_ITS | Encounter Summary ---
Author Organization [facility] Address [address] [place] [address] Care Team Providers Care Binding Bench Worker Name Role Phone Marlon Laguna MD Primary Care Provider [phone] Saul Eugene DO Unavailable Encounter Details Date Type Department Care Team (Late st Contact Info) Description 11/22/2024 Abstract [facility] OB [address] [place] [phone] Saul Eugene [address], [place] [phone] Social History Tobacco Use Types Packs/Day Years [...] Description 11/30/2024 1:00 PM EDT Routine [facility] OB [address] [place] [address] Saul Eugene, DO [address] [place] [address] 03/28/2025 2:00 PM EST Office Visit [facility] [address] [facility] [place] [address] Saul Eugene, [address] [place] [address] documented as of this encounter Goals Goal Patient Goal Type Associated Problems Recent Progress Patient-Stated? Author Reminders Care Plan OB Reminders No Open Scheduling, Background documented as of this encounter Visit Diagnoses Not on filedocumented in this encounter Additional Health Concerns Active Problems Noted Date Diagnosed Date OB Reminders 08/14/2024 documented as of this encounter Care Teams Binding Bench Worker Relationship Specialty Start Date End Date Marlon Laguna MD [address] [facility] [place] [address] PCP - General Family Medicine 08/29/23 Saul Eugene DO [address] [place] [address] Referring Physician Obstetrics and Gynecology 08/16/24 documented as of this encounter
[2024-11-24 13:38] LABS: Hematocrit 32.1 % (36.0-48.0); Hemoglobin 10.8 g/dL (12.0-16.0); Immature Granulocytes Abs Auto 0.06 10^3/uL (0.00-0.03); Immature Granulocytes Pct Auto 0.6 % (0.0-0.5); Lymphocytes Absolute Auto 1.0 10^3/uL (1.2-3.8); Mean Corpuscular HGB Conc 33.6 g/dL (29.9-35.2); Mean Corpuscular Hemoglobin 29.4 pg (26.7-34.0); Mean Corpuscular Volume 87.5 fL (81.0-99.0); Platelet Count 231 10^3/uL (150-450); Red Blood Count 3.67 10^6/uL (4.20-5.40); White Blood Count 10.0 10^3/uL (4.0-11.0)
[2024-11-24 13:57] LABS: Glucose 1 Hour 165 mg/dL (<130)
== END 2024-11-24 12:10 | disposition home or self-care (01) ==
LOC: LAB 12:09
PROVIDERS: PCP Family Medicine; Visit Provider Obstetrics & Gynecology
DX: Z13.1 Encounter for screening for diabetes mellitus (principal)
CPT/HCPCS: 36415; 82950; 85025

== ENCOUNTER 2024-12-21 11:07 | Outpatient (OUT) | payer OTHER, SELFPAY ==
--- NOTE | 2024-12-21 | US_ITS ---
The [address] [address] Patient Name: MINNIE BUNCH MRN: [facility]:[id number] date: 1995 Sex: F Assigned Patient Location: Current Patient Location: Accession/Order Number: [id number] Exam Date: 12/21/2024 14:56 Report Date: 12/21/2024 15:00 At the request of: VIC MCKEON DO Procedure: US OB BPP w non-stress Biophysical profile. Reason for exam: No chorionic diamniotic twin gestation. COMPARISON: None TECHNIQUE: Transabdominal imaging of the gravid uterus was obtained. FINDINGS: The supervisor baking reports a fetus A BPP of 6 out of 8 with 0 points for breathing.. MVP is 6.3 cm. heart rate 135 bpm. The supervisor baking reports fetus B BPP of 8 out of 8. MVP is 3.7 cm. heart rate 139 bpm. US/US OB BPP w non-stress IMPRESSION: BPP 6out of 8 for Fetus A. Correlation with NST is recommended. BPP 8 out of 8 for fetus B. Impression dictated by: Barrington Spears Jr., D.O. 12/21/2024 3:00 PM Dictation Location: [facility] Electronically authenticated by: [id number] Y Date: 12/21/2024 15:00
--- NOTE | 2024-12-21 | US_ITS ---
The [address] [address] Patient Name: MINNIE BUNCH MRN: [facility]:[id number] date: 1995 Sex: F Assigned Patient Location: Current Patient Location: Accession/Order Number: [id number] Exam Date: 12/21/2024 14:56 Report Date: 12/21/2024 15:00 At the request of: VIC MCKEON DO Procedure: US OB BPP w non-stress Biophysical profile. Reason for exam: No chorionic diamniotic twin gestation. COMPARISON: None TECHNIQUE: Transabdominal imaging of the gravid uterus was obtained. FINDINGS: The brake repairer bus reports a fetus A BPP of 6 out of 8 with 0 points for breathing.. MVP is 6.3 cm. heart rate 135 bpm. The brake repairer bus reports fetus B BPP of 8 out of 8. MVP is 3.7 cm. heart rate 139 bpm. US/US OB BPP w non-stress IMPRESSION: BPP 6out of 8 for Fetus A. Correlation with NST is recommended. BPP 8 out of 8 for fetus B. Impression dictated by: Barrington Spears Jr., D.O. 12/21/2024 3:00 PM Dictation Location: [email or web address] Electronically authenticated by: [id number] Y Date: 12/21/2024 15:00
== END 2024-12-21 13:10 | disposition home or self-care (01) ==
LOC: US 11:07 → FBC 11:11
PROVIDERS: PCP Family Medicine; Visit Provider Obstetrics & Gynecology
DX: O30.033 Twin pregnancy, monochorionic/diamniotic, third trimester (principal); Z3A.28 28 weeks gestation of pregnancy
CPT/HCPCS: 76818

== ENCOUNTER 2024-12-24 09:58 | Outpatient (OUT) | payer OTHER, SELFPAY ==
--- OUTSIDE RECORDS SUMMARY | 2023-12-18 13:03 | XMS_ITS ---
Author Organization The [facility] in [place] Address [address] [place] [address] Care Team Providers Care Online Communications Manager Name Role Phone Harsh Laguna Primary Care Provider REASON FOR VISIT Massage rx- Medications Medication SIG (Take, Route, Fr equency, Duration) Notes Start Date End Date Status Cyproheptadine HCl 4 MG Take 1 tablet by mouth once daily for 90 days Active Encounters Encounter Location Date Provider Diagnosis [facility] [address] [place] [address] 12/18/2023 Harsh Laguna Headache, unspecifie d R51.9 [...] Alia TURCIOS ADOB: [birth year] (28 yo F)Acc No.[id number]:12/18/2023 Patient: Christopher GONZALEZAlia ANGELA :1995 A ge:28 Y S ex:Female Address:[facility] [place] [address] * Refills Refill Cyproheptadine HCl Tablet, 4 MG, 90 Tablet, Take 1 tablet by mouth once daily, 90 days, Refills=3 * true * Date: Generated for Denis salcedo/Uzair/Maribell on: 0 12/24/2024 10:03 AM EDT
--- OUTSIDE RECORDS SUMMARY | 2023-12-18 13:18 | XMS_ITS ---
Author Organization The [facility] in [place] Address [address] [place] [address] Care Team Providers Care Branch Coordinator Name Role Phone Harsh Laguna Primary Care Provider REASON FOR VISIT RE:Doctor Encounters Encounter Location Date Provider Diagnosis [facility] [address] [place] [address] 12/18/2023 Harsh Laguna Plan Of Treatment No Information Progress Notes * Alia TURCIOS ADOB: [birth year] (28 yo F)Acc No.[id number]:12/18/2023 Patient: Christopher REYES Alia Avani :1995 A ge:28 Y S ex:Female Address:[facility] [address], [place] [address] * true * Date: Generated for Printi ng/Fadavidg/eTransmitting on: 0 12/24/2024 10:01 AM EDT
--- OUTSIDE RECORDS SUMMARY | 2024-04-09 07:00 | XMS_ITS ---
Author Organization The [facility] in [place] Address [address] [place] [address] Care Team Providers Care Bracer Name Role Phone Harsh Laguna Primary Care [...] Status W/U Status Risk Notes Problem Migraine ([id number]) Migraine (G43.909) Active confirmed Vital Signs Blood pressure systolic 126 mm Hg 04/09/20 24 Blood pressure diastolic 78 mm Hg 024 Height 62.5 in 04/09/2024 Weight 143.8 lbs 04/09/2024 BMI 25.88 kg/m2 04/09/2024 Encounters Encounter Location Date Provider Diagnosis [facility] [address] [place] [address] 04/09/2024 Harsh Laguna Migraine G43.909 Assessments Encounter [...] BRAIN WO CON 04/09/2024 Progress Notes * Alia BUNCH ADOB: [birth year] (28 yo F)Acc No.[id number]:04/09/2024 Progress Note Patient: Alia BETANCOURT Provider: Sandra Laguna ([facility])MD :1995 A ge:28 Y S ex:Female Date:04/09/2024 Address:[facility] [address], [facility] Check In:10:54 AM ESTCheck O ut:11:45 AM [...] now does more in necka nd into jain area constant pressure Chnage in headche - [...] Procedure Codes: * Preventive Medicine: Screenings/Counseling: B [place] ACTION PLAN Above Normal BMI Follow-up D ietary management education, guidance, and counseling See treatment section of progress note for complete details of management plan. * * Sign off status: Completed Visit Status: C HK (Check Out) true * Provider: Sandra Laguna ([facility])MD Date: 1 06/09/2023 Generated for Printi ng/Fadavidg/eTransmitting on: 0 12/24/2024 10:01 AM EDT History and Physical Notes * HPI (History of Present Illness) Category Sub-Category Detail Notes Category Not es Depression Screening PHQ-2 (2015 Edition) Little interest or pleasure in doing things?: Not at all was on gabapentin for trigeminal neuralgia - not had headaches in the pats\ now does more in necka nd into jain area constant pressure Chnage in headche - [...]
--- OUTSIDE RECORDS SUMMARY | 2024-09-10 07:15 | XMS_ITS ---
Author Organization [facility] vices Address [address] [place] [phone] Care Team Providers Care Court Commissioner Name Role Phone Heaven Vera Unavailable [phone] Yuliet Lozano Unavailable [phone] REASON FOR VISIT Recall (A) (28) Social History Sex Assigned At : Social History Observation Description Sex Assigned At Female Encounters Encounter Location Date Provider Diagnosis [facility] [address] [place] [phone] 09/10/2024 Yuliet Lozano Plan Of Treatment Next Appt Details Provider Name:Deshawn Moon , 06/10/2025 09:45:00 AM, [address] [place] [address], [phone], Progress Notes * Alia BUNCHDOB: 6 (29 yo F)Acc No.[id number]:09/10/2024 Patient: Alia BETANCOURT Provider: Kimberlee Lozano DMD :1995 A ge:29 Y S ex:Female Date:09/10/2024 Address:[address], [id number] Subjective: * Chief Complaints: * 1 . Recall (A) (28). * Medical History: Objective: * Vitals: Assessment: Plan: * Treatment: * Billing Information: * Visit Code: * Procedure Codes: * Electronic signature of Audra Lozano DMD on 12/24/2024 at 10:02 AM EDT Sign off status: Pending * Provider: Kimberlee Lozano DMD Date: 0 09/10/2024 Generated for Denis salcedo/Uzair/Maribell on: 0 12/24/2024 10:02 AM EDT
--- OUTSIDE RECORDS SUMMARY | 2024-12-13 15:15 | XMS_ITS | Encounter Summary ---
Author Organization [facility] [place] [facility] tem Address [id number] [address] [place] [address] Care Team Providers Care Vendor Quality Supervisor Name Role Phone Belén Rooney MD Primary Care Provider + [phone] Reason for Referral * Diagnostic Imaging (Routine) - Pending Review Specialty Diagnoses / Procedures Referred By Burt sellers Referred To Contact Maternal and Medicine Diagnoses Intrauterine growth restriction affecting antepartum care of mother in second trimester, fetus 1 of multiple gestation Intrauterine growth restriction affecting antepartum care of mother in second trimester, fetus 2 of multiple gestation Monochorionic diamniotic twin gestation in second trimester Procedures US MF with or without consult Blaise Woodall MD [address] [facility] 1st [place] [address] Phone: tel: fax: Maternal- Medicine at [facility] [address] [place] [address] Phone: tel: fax: Referral ID Status Reason Start Date Expiration Date V isits Requested Visits Authorized [id number] Pending Review 12/08/2024 12/08/2025 1 1 Reason for Visit * Diagnostic Imaging (Routine) - Pending Review Specialty Diagnoses / Procedures Referred By Burt sellers Referred To Contact Maternal and Medicine Diagnoses Intrauterine growth restriction affecting antepartum care of mother in second trimester, fetus 1 of multiple gestation Intrauterine growth restriction affecting antepartum care of mother in second trimester, fetus 2 of multiple gestation Monochorionic diamniotic twin gestation in second trimester Procedures US [facility] with or without consult Blaise Woodall MD [address] [facility] 1st [place] [address] Phone: tel: fax: Maternal- Medicine at [facility] [address] [place] [address] Phone: tel: fax: Referral ID Status Reason Start Date Expiration Date V isits Requested Visits Authorized [id number] Pending Review 12/08/2024 12/08/2025 1 1 Encounter Details Date Type Department Care Team (Latest Contact Info) Description 12/13/2024 3:15 PM EDT - 12/13/2024 11:59 PM EDT Hospital Encounter [facility] US Imaging [address] [place] [address] Intrauterine growth restriction affecting antepartum care of mother in second trimester, fetus 1 of multiple gestation; Intrauterine growth restriction affecting antepartum care of mother in second trimester, fetus 2 of multiple gestation; Monochorionic diamniotic twin gestation in second trimester Discharge Disposition: Home Social History Tobacco Use Types Packs/Day Years Used Date Smoking Tobacco: Never Smokeless Tobacco: Never Alcohol Use Standard Drinks/Week Comments Not Currently 0 (1 standard drink = 0.6 oz pur e alcohol) [facility] Utilities Answer Date Recorded In the past 12 months has [employer], gas, oil, or water [employer] threatened to shut off services in your [...] got money to buy more. Never True 12/06/2024 Within the past 12 months th e food we bought just didn't last and we didn't have money to get more. Never True 12/06/2024 Purpose - Life Answer Date Recorded Purpose [...] Care Team (Late st Contact Info) Description 12/29/2024 11:[address] [facility] US Imaging [address] [place] [address] 12/29/2024 1:00 PM EDT Office Visit Maternal- Medicine at [facility] [address] [place] [address] Alex Subramanian MD [address], [address] [place] [address] 01/10/2025 8:30 AM EDT Office Visit Maternal- Medicine at [facility] [address] [place] [address] Jefferson Nava MD [address], [address] [place] [address] documented as of this encounter Procedures Procedure Name Priority Date/Time Associated Diagnosis Comments US MFM LMTD OB, 1 OR MORE FETUS Routine 12/13/2024 4:52 PM EDT Intrauterine growth restriction affecting antepartum care of mother in second trimester, fetus 1 of multiple gestation Intrauterine growth restriction affecting antepartum care of mother in second trimester, fetus 2 of multiple gestation Monochorionic diamniotic twin gestation in second trimester documented in this encounter Results * US MFM LMTD OB, 1 OR MORE FETUS (12/13/2024 4:52 PM EDT) Anatomical Region Laterality Modality OB-EXTERMINATOR HELPER Ultrasound 12/13/2024 3:39 PM EDT Narrative 12/13/2024 5:20 PM EDT NAME: ALIVIA HARTMAN MANOJ : 1995 SEX: F Accession Number: [id number] ORDERING PHYSICIAN: BLAISE WOODALL REFERRING PHYSICIAN: VIC MCKEON Coding ----- --------- Procedures 50015: Limited OB / NATHAN, 1 or More Fetuses 79855: Transvaginal Ultrasound (OB) 63836: Doppler velocimetry, ; umbilical artery. 2 65378: Doppler velocimetry, ; middle cerebral artery. 2 41383: Doppler Ductus Venosus. 2 Indication ----- --------- Banner-Di twin , IUGR-Poor growth-twin A & B, Pre term contractions, Supervision of high risk History ----- --------- OB History 1. Para 0 [id number] Maternal Assessment ----- --------- Physical Exam Height [...] --------- LMP on: 06/08/2024 GA by LMP 26 w + 6 d VICTOR M by LMP: 03/15/2025 Assigned: based on the LMP, selected on 09/27/2024 Assigned GA 26 w + 6 d Assigned VICTOR M: 03/15/2025 Fetus A: General Evaluation ----- --------- Cardiac activity Present. FHR 136 bpm. Presentation: lower, cephalic right Placenta: Placental site: posterior, away from cervical os Umbilical cord: Cord vessels: 3 vessel cord Amniotic fluid: Amount of AF: normal amount. MVP 5.5 cm Fetus B: General Evaluation ----- --------- Cardiac activity Present. FHR 146 bpm. Presentation: upper, breech left Placenta: Placental site: posterior, away from cervical os Umbilical cord: Cord vessels: 3 vessel cord Amniotic fluid: Amount of AF: normal amount. MVP 4.4 cm Fetus A: Anatomy ----- --------- The following structures appear normal: Face: Profile. Nasal bone. Heart/Thorax: 4-chamber view. RVOT view. LVOT view. 3-vessel view. 9-lzwawm-edzlyoh view. Cardiac position. Cardiac axis. Cardiac size. Cardiac rhythm. Diaphragm. Abdomen: Stomach. Bladder. Fetus B: Anatomy ----- --------- The following structures appear normal: Heart / Thorax Cardiac position. Cardiac axis. Cardiac size. Cardiac rhythm. Abdomen Stomach. Bladder. Fetus A: Doppler ----- --------- Umbilical Artery: normal PI 1.05 56% Ebbing PS 42.65 cm/s 52% Ebbing TAmax 28.09 cm/s 56% Ebbing MD 15.17 cm/s S / D 3.03 43% Kiran Mid Cerebral Artery: normal PI 1.26 <1% Ebbing RI 0.75 27% Bahlmann PS 30.91 cm/s PS 0.88 MoM ED 7.79 cm/s TAmax 18.37 cm/s 83% Ebbing CPR PI 1.20 2% Ebbing Ductus Venosus: normal Fetus B: Doppler ----- --------- Umbilical Artery: normal PI 1.18 82% Ebbing PS 57.12 cm/s 98% Ebbing TAmax 36.99 cm/s 96% Ebbing MD 17.80 cm/s S / D 3.61 71% Kiran Mid Cerebral Artery: normal PI 1.37 1% Ebbing RI 0.78 40% Bahlmann PS 30.13 cm/s PS 0.86 MoM ED 6.69 cm/s TAmax 17.05 cm/s 73% Ebbing CPR PI 1.17 1% Ebbing Ductus Venosus: normal Maternal Structures ----- --------- Uterus Visualized Cervix Visualized Approach - Transvaginal: Cervical length 3.60 cm Right Ovary Not visualized Left Ovary Not visualized Cul de Sac Visualized Impression ----- --------- Monochorionic-diamniotic twin at 26w6d gestation. Twin A is lower, cephalic right with known FGR (EFW 4%). Amniotic fluid MVP measures 5.5 cm. bladder and stomach are visualized. Umbilical artery S/D ratio in normal range. MCA PSV 0.88 MoM is in the unremarkable range for the evaluation of anemia. Ductus venosus demonstrates continuous forward flow. Previously suspected velamentous vs marginal cord insertion appears marginal, insertion at inferior aspect of placental edge. The cord insertion is measuring >4cm away from internal os. Twin B is upper, breech left, with known FGR (EFW 8%). Amniotic fluid MVP measures 4.4 cm. bladder and stomach are visualized. Umbilical artery S/D ratio in normal range. MCA PSV 0.86 MoM is in the unremarkable range for the evaluation of anemia. Ductus venosus demonstrates continuous forward flow. There is no evidence of twin-twin transfusion syndrome or twin anemia polycythemia sequence. Transvaginal cervical length measures 3.6 cm. Recommendations ----- --------- The patient is scheduled in 1 week(s) for Dopplers and MVP. The patient is scheduled in 2 week(s) for growth and Doppler. Subsequent follow up or other follow up as clinically determined by primary OB provider unless otherwise specified by MFM. Results forwarded to ordering provider so they can follow up with the patient as necessary. Procedure Note Blaise Woodall MD - 12/13/2024 NAME: ALIVIA HARTMAN : 1995 SEX: F Accession Number: [id number] ORDERING PHYSICIAN: BLAISE WOODALL REFERRING PHYSICIAN: VIC MCKEON Coding ----- --------- Procedures 42104: Limited OB / NATHAN, 1 or More Fetuses 95720: Transvaginal Ultrasound (OB) 13838: Doppler velocimetry, ; umbilical artery. 2 18462: Doppler velocimetry, ; middle cerebral artery. 2 58104: Doppler Ductus Venosus. 2 Indication ----- --------- Banner-Di twin , IUGR-Poor growth-twin A & B, Pre termcontractions, Supervision of high risk History ----- --------- OB History 1. Para 0 [id number] Maternal Assessment ----- --------- Physical Exam Height [...] --------- LMP on: 06/08/2024 GA by LMP 26 w + 6 d VICTOR M by LMP: 03/15/2025 Assigned: based on the LMP, selected on 09/27/2024 Assigned GA 26 w + 6 d Assigned VICTOR M: 03/15/2025 Fetus A: General Evaluation ----- --------- Cardiac activity Present. FHR 136 bpm. Presentation: lower, cephalicright Placenta: Placental site: posterior, away from cervical os Umbilical cord: Cord vessels: 3 vessel cord Amniotic fluid: Amount of AF: normal amount. MVP 5.5 cm Fetus B: General Evaluation ----- --------- Cardiac activity Present. FHR 146 bpm. Presentation: upper, breech left Placenta: Placental site: posterior, away from cervical os Umbilical cord: Cord vessels: 3 vessel cord Amniotic fluid: Amount of AF: normal amount. MVP 4.4 cm Fetus A: Anatomy ----- --------- The following structures appear normal: Face: Profile. Nasal bone. Heart/Thorax: 4-chamber view. RVOT view. LVOT view. 3-vessel view.8-imdhsm-cpuwbip view. Cardiac position. Cardiac axis. Cardiac size. Cardiac rhythm. Diaphragm. Abdomen: Stomach. Bladder. Fetus B: Anatomy ----- --------- The following structures appear normal: Heart / Thorax Cardiac position. Cardiac axis. Cardiac size. Cardiacrhythm. Abdomen Stomach. Bladder. Fetus A: Doppler ----- --------- Umbilical Artery: normal PI 1.05 56% Ebbing PS 42.65 cm/s 52% Ebbing TAmax 28.09 cm/s 56% Ebbing MD 15.17 cm/s S / D 3.03 43% Kiran Mid Cerebral Artery: normal PI 1.26 <1% Ebbing RI 0.75 27% [facility] 30.91 cm/s PS 0.88 MoM ED 7.79 cm/s TAmax 18.37 cm/s 83% Ebbing CPR PI 1.20 2% Ebbing Ductus Venosus: normal Fetus B: Doppler ----- --------- Umbilical Artery: normal PI 1.18 82% Ebbing PS 57.12 cm/s 98% Ebbing TAmax 36.99 cm/s 96% Ebbing MD 17.80 cm/s S / D 3.61 71% Kiran Mid Cerebral Artery: normal PI 1.37 1% Ebbing RI 0.78 40% Bahlmann PS 30.13 cm/s PS 0.86 MoM ED 6.69 cm/s TAmax 17.05 cm/s 73% Ebbing CPR PI 1.17 1% Ebbing Ductus Venosus: normal Maternal Structures ----- --------- Uterus Visualized Cervix Visualized Approach - Transvaginal: Cervical length 3.60 cm Right Ovary Not visualized Left Ovary Not visualized Cul de Sac Visualized Impression ----- --------- Monochorionic-diamniotic twin at 26w6d gestation. Twin A is lower, cephalic right with known FGR (EFW 4%). Amniotic fluid MVP measures 5.5 cm. bladder and stomach are visualized. Umbilical artery S/D ratio in normal range. MCA PSV 0.88 MoM is in the unremarkable range for the evaluation of fetalanemia. Ductus venosus demonstrates continuous forward flow. Previously suspected velamentous vs marginal cord insertion appearsmarginal, insertion at inferior aspect of placental edge. The cord insertion is measuring >4cm away from internal os. Twin B is upper, breech left, with known FGR (EFW 8%). Amniotic fluid MVP measures 4.4 cm. bladder and stomach are visualized. Umbilical artery S/D ratio in normal range. MCA PSV 0.86 MoM is in the unremarkable range for the evaluation of fetalanemia. Ductus venosus demonstrates continuous forward flow. There is no evidence of twin-twin transfusion syndrome or twin anemiapolycythemia sequence. Transvaginal cervical length measures 3.6 cm. Recommendations ----- --------- The patient is scheduled in 1 week(s) for Dopplers and MVP. The patient is scheduled in 2 week(s) for growth and Doppler. Subsequent follow up or other follow up as clinically determined byprimary OB provider unless otherwise specified by [facility]. Results forwarded to ordering provider so they can follow up with thepatient as necessary. Blaise Woodall MD [facility] ORDERABLES Final Result documented in this encounter Visit Diagnoses Diagnosis Intrauterine growth restriction affecting antepartum care of mother in second trimester, fetus 1 of multiple gestation Intrauterine growth restriction affecting antepartum care of mother in second trimester, fetus 2 of multiple gestation Monochorionic diamniotic twin gestation in second trimester documented in this encounter Care Teams Vendor Quality Supervisor Relationship Specialty Start Date End Date Belén Rooney MD [facility] [place] [address] PCP - General Family Medicine 09/29/18 documented as of this encounter
--- OUTSIDE RECORDS SUMMARY | 2024-12-14 13:50 | XMS_ITS | Encounter Summary ---
Author Organization [facility] Address [address] [place] [address] Care Team Providers Care Search Developer Name Role Phone Marlon Laguna MD Primary Care Provider [phone] Saul Eugene DO Unavailable Reason for Visit * Reason Comments Routine Visit Encounter Details Date Type Department Care Team (Late st Contact Info) Description 12/14/2024 1:50 PM EDT Routine [facility] [address] [place] [address] Saul Eugene DO [address] [place], [facility] Second trimester ([facility]); 27 weeks gestation of ([facility]); Monochorionic diamniotic twin gestation in second trimester ([facility]) Social History Tobacco Use Types [...] Info) Description 12/30/2024 11:30 AM EDT Routine [facility] [address] [place], [place] [address] [address] Saul Eugene [address] [place] [address] 03/28/2025 2:00 PM EST Office Visit [facility] [place] [address] Saul Eugene [address] [place] [address] documented as of this encounter Goals Goal Patient Goal Type Associated Problems Recent Progress Patient-Stated? Author Reminders Care Plan OB Reminders No Open Scheduling, Background documented as of this encounter Procedures Procedure Name Priority Date/Time Associated Diagnosis Comments POCT URINALYSIS DIPSTICK Routine 12/14/2024 2:03 PM EDT Second trimester ([facility]) documented in this encounter Results [...] - 9 Protein, UA Negative Negative - 2000(20) ++++ mg/dL Urobilinogen, UA 0.2 0.2 - 12 mg/dL Leukocytes, UA Negative Negative - 500+++ Lisa/mcL Nitrite, UA Negative Negative - Positive Urine 12/14/2024 2:03 PM EDT Saul Eugene DO POINT OF CARE TEST ENTER/EDIT OR DERABLES Final Result documented in this encounter Visit Diagnoses Diagnosis Second trimester ([facility]) state, incidental 27 weeks gestation of ([facility]) Monochorionic diamniotic twin gestation in second trimester ([facility]) documented in this encounter Additional Health Concerns Active Problems Noted Date Diagnosed Date OB Reminders 08/14/2024 documented as of this encounter Care Teams Search Developer Relationship Specialty [place] [address] [place], [place] [address], [place] [address] PCP - General Family Medicine 08/29/23 Saul Eugene DO [address] [place] [address] [place] [address] Referring Physician Obstetrics and Gynecology 08/16/24 documented as of this encounter
--- OUTSIDE RECORDS SUMMARY | 2024-12-20 14:54 | XMS_ITS | Encounter Summary ---
Author Organization [facility] tem Address [id number] [place] [address] Care Team Providers Care Machine Hoop Maker Name Role Phone eBlén Rooney MD Primary Care Provider [phone] Reason for Referral * Diagnostic Imaging (Routine) [...] without consult Blaise Woodall MD [address] [facility] 1[address] [place] [address] Phone: tel: fax: Maternal- Medicine at [facility] [address] [place] [address] Phone: tel: fax: Referral ID Status Reason Start Date Expiration Date V isits Requested Visits Authorized [id number] Pending Review 12/08/2024 12/08/2025 1 1 Reason [...] twin gestation in second trimester Procedures US [facility] with or without consult Blaise Woodall MD [address] [facility] 1st [place] [address] Phone: tel: fax: Maternal- Medicine at [facility] [address] [place] [address] Phone: tel: fax: Referral ID Status Reason Start Date Expiration Date V isits Requested Visits Authorized [id number] Pending Review 12/08/2024 12/08/2025 1 1 Encounter Details Date Type Department Care Team (Latest Contact Info) Description 12/20/2024 2:54 PM EDT - 12/20/2024 11:59 PM EDT Hospital Encounter [facility] - [facility] US Imaging [address] [place] [address] Intrauterine growth restriction affecting antepartum [...] oz pur e alcohol) [facility] Utilities Answer Date Recorded In the past 12 months has [employer], gas, oil, or water [employer] threatened to shut off services in your [...] Info) Description 12/29/2024 11:00 AM EDT Appointment [facility] - [facility] US Imaging [address] [place] [address] 12/29/2024 1:00 PM EDT Office Visit Maternal- Medicine at [facility] [address] [place] [address] Alex Subramanian MD [address], [address] [place] [address] 01/10/2025 8:30 AM EDT Office Visit Maternal- Medicine at [facility] [address] [place] [address] Jefferson Nava MD [address], [address] [place] [address] documented as of this encounter Procedures Procedure Name Priority Date/Time Associated Diagnosis Comments US MFM LMTD OB, 1 OR MORE FETUS Routine 12/20/2024 3:58 PM EDT Intrauterine growth restriction affecting antepartum care of mother in second trimester, fetus 1 of multiple gestation Intrauterine growth restriction affecting antepartum care of mother in second trimester, fetus 2 of multiple gestation Monochorionic diamniotic twin gestation in second trimester documented in this encounter Results * US MFM LMTD OB, 1 OR MORE FETUS (12/20/2024 3:58 PM EDT) Anatomical Region Laterality Modality OB-BUILDING SURVEYOR Ultrasound 12/20/2024 3:17 PM EDT Narrative 12/20/2024 4:11 PM EDT NAME: ALIVIA HARTMAN MANOJ : 1995 SEX: F Accession Number: [id number] ORDERING PHYSICIAN: BLAISE WOODALL REFERRING PHYSICIAN: VIC MCKEON Coding ----- --------- Procedures 14927: Limited OB / NATHAN, 1 or More Fetuses 27364: Doppler velocimetry, ; umbilical artery. 2 50061: Doppler velocimetry, ; middle cerebral artery. 2 21651: Doppler Ductus Venosus. 2 Indication ----- --------- [place]-Di twin , IUGR-Poor growth-twin A & B, Pre term contractions, Supervision of high risk History ----- --------- OB History 1. Para 0 [id number] Maternal Assessment ----- --------- Physical Exam Height 157 cm, 5 ft 2 in. Weight 67 kg, 147 lb. Initial weight 64 kg, 141 lb. BMI 26.89 kg/m . Initial BMI 25.79 kg/m . Weight gain 3 kg, 6 lb Method ----- --------- Transabdominal ultrasound examination ----- --------- Twin . Number of fetuses: 2. Monochorionic-diamniotic Dating ----- --------- LMP on: 06/08/2024 GA by LMP 27 w + 6 d VICTOR M by LMP: 03/15/2025 Assigned: based on the LMP, selected on 09/27/2024 Assigned GA 27 w + 6 d Assigned VICTOR M: 03/15/2025 Fetus A: General Evaluation ----- --------- Cardiac activity Present. FHR 138 bpm. Presentation: lower, cephalic right Placenta: Placental site: posterior, previously documented away from cervical os Umbilical cord: Cord vessels: 3 vessel cord Amniotic fluid: Amount of AF: normal amount. MVP 5.1 cm Fetus B: General Evaluation ----- --------- Cardiac activity Present. FHR 154 bpm. Presentation: upper, variable Left Placenta: Placental site: posterior, previously documented away from cervical os Umbilical cord: Cord vessels: 3 vessel cord Amniotic fluid: Amount of AF: normal amount. MVP 6.5 cm Fetus A: Anatomy ----- --------- The following structures appear normal: Heart/Thorax: Diaphragm. Abdomen: Stomach. Bladder. Fetus B: Anatomy ----- --------- The following structures appear normal: Abdomen Stomach. Bladder. Fetus A: Doppler ----- --------- Umbilical Artery: normal PI 1.08 68% Ebbing PS 40.41 cm/s 31% Ebbing TAmax 26.45 cm/s 35% Ebbing MD 12.88 cm/s S / D 3.43 68% Kiran Mid Cerebral Artery: normal PI 1.97 34% Ebbing RI 0.84 72% Bahlmann PS 37.04 cm/s PS 1.01 MoM ED 5.93 cm/s TAmax 15.80 cm/s 52% Ebbing CPR PI 1.82 23% Ebbing Ductus Venosus: normal Fetus B: Doppler ----- --------- Umbilical Artery: normal PI 1.27 94% Ebbing PS -47.56 cm/s TAmax -27.96 cm/s MD -11.88 cm/s S / D 3.98 88% Kiran Mid Cerebral Artery: normal PI 1.72 12% Ebbing RI 0.82 61% Bahlmann PS 36.18 cm/s PS 0.99 MoM ED 6.50 cm/s TAmax 17.22 cm/s 67% Ebbing CPR PI 1.36 3% Ebbing Ductus Venosus: normal Impression ----- --------- Monochorionic-diamniotic twin at 26w6d gestation. Twin A is lower, cephalic right with known FGR (EFW 4%). Amniotic fluid MVP measures 5.1 cm. bladder and stomach are visualized. Umbilical artery S/D ratio in normal range. MCA PSV 1.01 MoM is in the unremarkable range for the evaluation of anemia. Ductus venosus demonstrates continuous forward flow. Previously suspected velamentous vs marginal cord insertion was not evaluated on today's exam. Twin B is upper, variable Left, with known FGR (EFW 8%). Amniotic fluid MVP measures 6.5 cm. bladder and stomach are visualized. Umbilical artery S/D ratio in normal range. MCA PSV 0.99 MoM is in the unremarkable range for the evaluation of anemia. Ductus venosus demonstrates continuous forward flow. There is no evidence of twin-twin transfusion syndrome or twin anemia polycythemia sequence. Recommendations ----- --------- The patient is scheduled in 1 week(s) for growth and Doppler. Subsequent follow up or other follow up as clinically determined by primary OB provider unless otherwise specified by M. Results forwarded to ordering provider so they can follow up with the patient as necessary. Procedure Note Jefferson Nava MD - 12/20/2024 NAME: ALIVIA HARTMAN : 1995 SEX: F Accession Number: [id number] ORDERING PHYSICIAN: BLAISE WOODALL REFERRING PHYSICIAN: VIC MCKEON Coding ----- --------- Procedures 24303: Limited OB / NATHAN, 1 or More Fetuses 39821: Doppler velocimetry, ; umbilical artery. 2 08528: Doppler velocimetry, ; middle cerebral artery. 2 77224: Doppler Ductus Venosus. 2 Indication ----- --------- [place]-Di twin , IUGR-Poor growth-twin A & B, Pre termcontractions, Supervision of high risk History ----- --------- OB History 1. Para 0 [id number] Maternal Assessment ----- --------- Physical Exam Height 157 cm, 5 ft 2 in. Weight 67 kg, 147 lb. Initialweight 64 kg, 141 lb. BMI 26.89 kg/m . Initial BMI 25.79 kg/m . Weight gain 3 kg, 6 lb Method ----- --------- Transabdominal ultrasound examination ----- --------- Twin . Number of fetuses: 2. Monochorionic-diamniotic Dating ----- --------- LMP on: 06/08/2024 GA by LMP 27 w + 6 d VICTOR M by LMP: 03/15/2025 Assigned: based on the LMP, selected on 09/27/2024 Assigned GA 27 w + 6 d Assigned VICTOR M: 03/15/2025 Fetus A: General Evaluation ----- --------- Cardiac activity Present. FHR 138 bpm. Presentation: lower, cephalicright Placenta: Placental site: posterior, previously documented away fromcervical os Umbilical cord: Cord vessels: 3 vessel cord Amniotic fluid: Amount of AF: normal amount. MVP 5.1 cm Fetus B: General Evaluation ----- --------- Cardiac activity Present. FHR 154 bpm. Presentation: upper, variableLeft Placenta: Placental site: posterior, previously documented away fromcervical os Umbilical cord: Cord vessels: 3 vessel cord Amniotic fluid: Amount of AF: normal amount. MVP 6.5 cm Fetus A: Anatomy ----- --------- The following structures appear normal: Heart/Thorax: Diaphragm. Abdomen: Stomach. Bladder. Fetus B: Anatomy ----- --------- The following structures appear normal: Abdomen Stomach. Bladder. Fetus A: Doppler ----- --------- Umbilical Artery: normal PI 1.08 68% Ebbing PS 40.41 cm/s 31% Ebbing TAmax 26.45 cm/s 35% Ebbing MD 12.88 cm/s S / D 3.43 68% Kiran Mid Cerebral Artery: normal PI 1.97 34% Ebbing RI 0.84 72% Bahlmann PS 37.04 cm/s PS 1.01 MoM ED 5.93 cm/s TAmax 15.80 cm/s 52% Ebbing CPR PI 1.82 23% Ebbing Ductus Venosus: normal Fetus B: Doppler ----- --------- Umbilical Artery: normal PI 1.27 94% Ebbing PS -47.56 cm/s TAmax -27.96 cm/s MD -11.88 cm/s S / D 3.98 88% Kiran Mid Cerebral Artery: normal PI 1.72 12% Ebbing RI 0.82 61% Bahlmann PS 36.18 cm/s PS 0.99 MoM ED 6.50 cm/s TAmax 17.22 cm/s 67% Ebbing CPR PI 1.36 3% Ebbing Ductus Venosus: normal Impression ----- --------- Monochorionic-diamniotic twin at 26w6d gestation. Twin A is lower, cephalic right with known FGR (EFW 4%). Amniotic fluid MVP measures 5.1 cm. bladder and stomach are visualized. Umbilical artery S/D ratio in normal range. MCA PSV 1.01 MoM is in the unremarkable range for the evaluation of fetalanemia. Ductus venosus demonstrates continuous forward flow. Previously suspected velamentous vs marginal cord insertion was notevaluated on today's exam. Twin B is upper, variable Left, with known FGR (EFW 8%). Amniotic fluid MVP measures 6.5 cm. bladder and stomach are visualized. Umbilical artery S/D ratio in normal range. MCA PSV 0.99 MoM is in the unremarkable range for the evaluation of fetalanemia. Ductus venosus demonstrates continuous forward flow. There is no evidence of twin-twin transfusion syndrome or twin anemiapolycythemia sequence. Recommendations ----- --------- The patient is scheduled in 1 week(s) for growth and Doppler. Subsequent follow up or other follow up as clinically determined byprimary OB provider unless otherwise specified by M. Results forwarded to ordering provider so they can follow up with thepatient as necessary. us Blaise Woodall MD [facility] US ORDERABLES Final Result documented in this encounter Visit Diagnoses Diagnosis Intrauterine growth restriction affecting antepartum care of mother in second trimester, fetus 1 of multiple gestation Intrauterine growth restriction affecting antepartum care of mother in second trimester, fetus 2 of multiple gestation Monochorionic diamniotic twin gestation in second trimester documented in this encounter Care Teams Machine Hoop Maker Relationship Specialty Start Date End Date Belén Rooney MD [address] [place] [phone] (work) PCP - General Family Medicine 09/29/18 documented as of this encounter
--- OUTSIDE RECORDS SUMMARY | 2024-12-23 04:45 | XMS_ITS ---
Author Organization [facility] vices Address [address] [place] [phone] Care Team Providers Care Public Health Aide Name Role Phone Heaven Vera Unavailable [phone] Deshawn Moon Unavailable [phone] REASON FOR VISIT Recall (A) 29 Social History Sex Assigned At : Social History Observation Description Sex Assigned At Female Encounters Encounter Location Date Provider Diagnosis Dental Main [address] [place] [phone] 12/23/2024 Deshawn Moon Plan Of Treatment Next Appt Details Provider Name:Deshawn Moon , 06/10/2025 09:45:00 AM, [address] [place], [place], [phone], Progress Notes * Alia BUNCHDOB: 6 (29 yo F)Acc No.[id number]:12/23/2024 Patient: Alia BETANCOURT Provider: Christopher Moon DDS :1995 A ge:29 Y S ex:Female Date:12/23/2024 Address[address] [place], [id number] Subjective: * Chief Complaints: * 1 . Recall (A) 29. * Medical History: Objective: * Vitals: Assessment: Plan: * Treatment: * Billing Information: * Visit Code: * Procedure Codes: * Electronic signature of Nessa Moon DDS on 12/24/2024 at 10:02 AM EDT Sign off status: Pending * Provider: Christopher Moon DDS Date: 0 12/23/2024 Generated for Denis salcedo/Uzair/Maribell on: 0 12/24/2024 10:02 AM EDT
--- NOTE | 2024-12-24 | US_ITS ---
[address] [address] Patient Name: MINNIE BUNCH MRN: [id number] date: 1995 Sex: F Assigned Patient Location: [facility] Current Patient Location: Accession/Order Number: [id number] Exam Date: 12/24/2024 14:00 Report Date: 12/24/2024 14:02 At the request of: VIC MCKEON DO Procedure: US OB BPP w non-stress Biophysical profile. Reason for exam: Twin COMPARISON: 12/21/2024 TECHNIQUE: The folder operator reports a fetus A BPP of 8 out of 8. MVP is 8.4 cm. heart rate 163 bpm. The folder operator reports fetus B BPP of 8 out of 8. MVP is 5.4 cm. heart rate 147 bpm. US/US OB BPP w non-stress IMPRESSION: BPP 8out of 8 for Fetus A. BPP 8 out of 8 for fetus B. Impression dictated by: Barrington Spears Jr., D.O. 12/24/2024 2:02 PM Dictation Location: [place] [address] Electronically authenticated by: [id number] Y Date: 12/24/2024 14:02
--- OUTSIDE RECORDS SUMMARY | 2024-12-24 10:02 | XMS_ITS | Encounter Summary ---
Author Organization [facility] Address [address] [place] [address] Care Team Providers Care Zigzag Topstitcher Name Role Phone Marlon Laguna MD Primary Care Provider [phone] Saul Eugene DO Unavailable Encounter Details Date Type Department Care Team (Late st Contact Info) Description 10/12/2024 Abstract [facility] [address] [place] [phone] Saul Eugene DO [address] [place], [facility]11 Social History Tobacco Use Types Packs/Day Years [...] 11:30 AM EDT Routine [facility] [address] [place] [address] Saul Eugene DO [address] [place] [address] 03/28/2025 2:00 PM EST Office Visit [facility] [address] [place] [phone] Saul Eugene DO [address] [facility] [place] [address] documented as of this encounter Goals Goal Patient Goal Type Associated Problems Recent Progress Patient-Stated? Author Reminders Care Plan OB Reminders No Open Scheduling, Background documented as of this encounter Visit Diagnoses Not on filedocumented in this encounter Additional Health Concerns Active Problems Noted Date Diagnosed Date OB Reminders 08/14/2024 documented as of this encounter Care Teams Zigzag Topstitcher Relationship Specialty Start Date End Date Marlon Laguna MD [address] [facility] [place] [address] PCP - General Family Medicine 08/29/23 Saul Eugene DO [address] [place] [address] Referring Physician Obstetrics and Gynecology 08/16/24 documented as of this encounter
--- OUTSIDE RECORDS SUMMARY | 2024-12-24 10:02 | XMS_ITS | Encounter Summary ---
Author Organization [facility] Address [address] [place] [address] Care Team Providers Care It Network Engineer Name Role Phone Marlon Laguna MD Primary Care Provider [phone] Saul Eugene DO Unavailable Encounter Details Date Type Department Care Team (Late st Contact Info) Description 10/27/2024 Abstract [facility] [address] [place] [phone] Saul Eugene DO [address] [place], [facility]11 Social History Tobacco Use Types Packs/Day Years [...] [facility] [address] [place] [address] Saul Eugene DO [address] [place] [address] 03/28/2025 2:00 PM EST Office Visit [facility] [address] [place] [phone] Saul Eugene DO [address] [facility] [place] [address] documented as of this encounter Goals Goal Patient Goal Type Associated Problems Recent Progress Patient-Stated? Author Reminders Care Plan OB Reminders No Open Scheduling, Background documented as of this encounter Visit Diagnoses Not on filedocumented in this encounter Additional Health Concerns Active Problems Noted Date Diagnosed Date OB Reminders 08/14/2024 documented as of this encounter Care Teams It Network Engineer Relationship Specialty Start Date End Date Marlon Laguna MD [address] [facility] [place] [address] PCP - General Family Medicine 08/29/23 Saul Eugene DO [address] [place] [address] Referring Physician Obstetrics and Gynecology 08/16/24 documented as of this encounter
--- OUTSIDE RECORDS SUMMARY | 2024-12-24 10:02 | XMS_ITS | Encounter Summary ---
Author Organization [facility] Address [address] [place] [address] Care Team Providers Care Dining Services Director Name Role Phone Marlon Laguna MD Primary Care Provider [phone] Saul Eugene DO Unavailable Encounter Details Date Type Department Care Team (Late Contact Info) Description 10/01/2024 Orders Only [facility] [address] [place] [address] Ximena Aly MA Social History Tobacco [...] Encounters Date Type Department Care Team (Late Contact Info) Description 12/30/2024 11:30 AM EDT Routine [facility] [address] [place] [address] Saul Eugene DO [address] [place] [address] 03/28/2025 2:00 PM EST Office Visit [facility] [address] [place] [phone] Saul Eugene DO [address] [place] [address] documented as of this encounter Goals Goal [...] documented as of this encounter Care Teams Dining Services Director Relationship Specialty Start Date End Date Marlon Laguna MD [address] [facility] [place] [address] PCP - General Family Medicine 08/29/23 Saul Eugene DO [address] [place] [address] Referring Physician Obstetrics and Gynecology 08/16/24 documented as of this encounter
--- OUTSIDE RECORDS SUMMARY | 2024-12-24 10:02 | XMS_ITS | Encounter Summary ---
Author Organization [facility] Address [address] [place] [address] Care Team Providers Care Hand Stitcher Name Role Phone Marlon Laguna MD Primary Care Provider [phone] Saul Eugene DO Unavailable Encounter Details Date Type Department Care Team (Late st Contact Info) Description 08/16/2024 Abstract [facility] [address] [place] [phone] Saul Eugene DO [address] [place], [facility]11 Social History Tobacco Use Types Packs/Day Years [...] [facility] [address] [place] [address] Saul Eugene DO [address] [place] [address] 03/28/2025 2:00 PM EST Office Visit [facility] [address] [facility] [place] [phone] Saul Eugene DO [address] [facility] [place] [address] documented as of this encounter Goals Goal Patient Goal Type Associated Problems Recent Progress Patient-Stated? Author Reminders Care Plan OB Reminders No Open Scheduling, Background documented as of this encounter Visit Diagnoses Not on filedocumented in this encounter Additional Health Concerns Active Problems Noted Date Diagnosed Date OB Reminders 08/14/2024 documented as of this encounter Care Teams Hand Stitcher Relationship Specialty Start Date End Date Marlon Laguna MD [address] [facility] [place] [address] PCP - General Family Medicine 08/29/23 Saul Eugene DO [address] [place] [address] Referring Physician Obstetrics and Gynecology 08/16/24 documented as of this encounter
--- OUTSIDE RECORDS SUMMARY | 2024-12-24 10:02 | XMS_ITS | Clinical Summary ---
Author Organization DriverSide tem Address [id number] [address] [place] [address] Care Team Providers Care Vacuum Drier Operator Name Role Phone Belén Rooney MD Primary Care Provider [phone] Allergies No known active allergies Medications PIRMELLA [...] Encounters Date Type Department Care Team Description 12/20/2024 2:54 PM EDT - 12/20/2024 11:59 PM EDT Hospital Encounter [facility] US Imaging [address] [place] [address] Intrauterine growth restriction affecting antepartum care of mother in second trimester, fetus 1 of multiple gestation; Intrauterine growth restriction affecting antepartum care of mother in second trimester, fetus 2 of multiple gestation; Monochorionic diamniotic twin gestation in second trimester Discharge Disposition: Home 12/18/2024 Travel 12/13/2024 3:15 PM EDT - 12/13/2024 11:59 PM EDT Hospital Encounter [facility] US Imaging [address] [place] [address] Intrauterine growth restriction affecting antepartum care of mother in second trimester, fetus 1 of multiple gestation; Intrauterine growth restriction affecting antepartum care of mother in second trimester, fetus 2 of multiple gestation; Monochorionic diamniotic twin gestation in second trimester Discharge Disposition: Home 12/11/2024 Travel 12/08/2024 Orders Only Maternal- Medicine at [facility] [address] [place] [address] Geeta Jacobs, RN Intrauterine growth restriction affecting antepartum care of mother in second trimester, fetus 1 of multiple gestation (Primary Dx); Intrauterine growth restriction affecting antepartum care of mother in second trimester, fetus 2 of multiple gestation; Monochorionic diamniotic twin gestation in second trimester 12/07/2024 Telephone Maternal- Medicine at [facility] [address] [place] [address] Susan Beltran LPN 12/06/2024 9:45 AM EDT Office Visit Maternal- Medicine at [facility] [address] [place] [address] Blaise Tse MD Intrauterine growth restriction affecting antepartum care of mother in second trimester, fetus 2 of multiple gestation (Primary Dx); Intrauterine growth restriction affecting antepartum care of mother in second trimester, fetus 1 of multiple gestation; 25 weeks gestation of ; Velamentous insertion of umbilical cord in second trimester; Monochorionic diamniotic twin gestation in second trimester 12/06/2024 8:00 AM EDT - 12/06/2024 11:59 PM EDT Hospital Encounter [facility] US Imaging [address] [place] [address] Vasa previa, fetus 1 of multiple gestation; Intrauterine growth restriction affecting antepartum care of mother in second trimester, fetus 1; Monochorionic diamniotic twin gestation in second trimester Discharge Disposition: Home 12/06/2024 Orders Only Maternal- Medicine at [facility] [address] [place] [address] Ref Prov, Not In System 12/04/2024 Travel 12/01/2024 Orders Only Maternal- Medicine at [facility] [address] [place] [address] Arleth Jefferson CMA Vasa previa, fetus 1 of multiple gestation (Primary Dx); Intrauterine growth restriction affecting antepartum care of mother in second trimester, fetus 1; Monochorionic diamniotic twin gestation in second trimester 11/29/2024 2:56 PM EDT - 11/29/2024 11:59 PM EDT Hospital Encounter [facility] US Imaging [address] [place] [address] Monochorionic diamniotic twin , antepartum; IUGR (intrauterine growth restriction) affecting care of mother, second trimester, not applicable or unspecified fetus Discharge Disposition: Home 11/27/2024 Travel 11/23/2024 Orders Only Maternal- Medicine at [facility] [address] [place] [address] Susan Beltran LPN Monochorionic diamniotic twin gestation in second trimester; Intrauterine growth restriction affecting antepartum care of mother in second trimester, fetus 1; Velamentous insertion of umbilical cord in second trimester; Vasa previa, fetus 1 of multiple gestation; Palpitations 11/23/2024 Orders Only Maternal- Medicine at [facility] [address] [place] [address] Susan Beltran LPN Monochorionic diamniotic twin gestation in second trimester (Primary Dx); Intrauterine growth restriction affecting antepartum care of mother in second trimester, fetus 1; Velamentous insertion of umbilical cord in second trimester; Vasa previa, fetus 1 of multiple gestation; Palpitations 11/23/2024 Telephone Maternal- Medicine at [facility] [address] [place] [address] Susan Beltran LPN 11/22/2024 7:59 AM EDT - 11/22/2024 11:59 PM EDT Hospital Encounter [facility] US Imaging [address] [place] [address] Monochorionic diamniotic twin gestation in second trimester Discharge Disposition: Home 11/20/2024 Travel 11/17/2024 Telephone Maternal- Medicine at [facility] [address] [place] [address] Jefferson Nava MD 11/15/2024 2:30 PM EDT Office Visit Maternal- Medicine at [facility] [address] [address] Jefferson Nava MD Monochorionic diamniotic twin gestation in second trimester (Primary Dx) 11/15/2024 12:47 PM EDT - 11/15/2024 11:59 PM EDT Hospital Encounter [facility] US Imaging [address] [place] [address] Encounter for other screening follow-up; Monochorionic diamniotic twin gestation in second trimester Discharge Disposition: Home 11/13/2024 Travel 11/08/2024 9:42 AM EDT - 11/08/2024 11:59 PM EDT Hospital Encounter [facility] US Imaging [address] [place] [address] Discharge Disposition: Home 11/08/2024 Telephone [facility] [address] [place] [address] Services, [facility] 11/07/2024 9:04 AM EDT - 11/07/2024 11:59 PM EDT Hospital Encounter [facility] US Imaging [address] [place] [address] Discharge Disposition: Home 11/07/2024 6:22 AM EDT - 11/08/2024 2:17 PM EDT Hospital Encounter [facility] - GEN 3 Antepartum [address] [place] [address] Farshda Negro MD Discharge Disposition: Home 11/07/2024 Travel 11/04/2024 Orders Only Maternal- Medicine at [facility] [address] [place] [address] Susan Beltran LPN Intrauterine growth restriction affecting antepartum care of mother in second trimester, fetus 1; Velamentous insertion of umbilical cord in second trimester; Monochorionic diamniotic twin gestation in second trimester; Vasa previa, fetus 1 of multiple gestation; Palpitations 11/04/2024 Orders Only Maternal- Medicine at [facility] [address] [place] [address] Susan Beltran LPN Intrauterine growth restriction affecting antepartum care of mother in second trimester, fetus 1 (Primary Dx); Velamentous insertion of umbilical cord in second trimester; Monochorionic diamniotic twin gestation in second trimester; Vasa previa, fetus 1 of multiple gestation; Palpitations 11/04/2024 Telephone Maternal- Medicine at [facility] [address] [place] [address] Susan Beltran LPN 11/01/2024 12:49 PM EDT - 11/01/2024 11:59 PM EDT Hospital Encounter [facility] US Imaging [address] [place] [address] Monochorionic diamniotic twin gestation in second trimester Discharge Disposition: Home 11/01/2024 Travel 10/30/2024 Travel 10/26/2024 11:30 AM EDT Office Visit Maternal- Medicine at [facility] [address] [place] [address] Blaise Tse MD Intrauterine growth restriction affecting antepartum care of mother in second trimester, fetus 1 (Primary Dx); 20 weeks gestation of ; Velamentous insertion of umbilical cord in second trimester; Monochorionic diamniotic twin gestation in second trimester; Vasa previa, fetus 1 of multiple gestation 10/26/2024 9:00 AM EDT - 10/26/2024 11:59 PM EDT Hospital Encounter [facility] US Imaging [address] [place] [address] Palpitations; Monochorionic diamniotic twin gestation in second trimester Discharge Disposition: Home 10/24/2024 Travel 10/13/2024 Orders Only Maternal- Medicine at [facility] [address] [place] [address] Brooklyn Campos RN Monochorionic diamniotic twin gestation in second trimester (Primary Dx) 10/11/2024 3:29 PM EDT - 10/11/2024 11:59 PM EDT Hospital Encounter [facility] US Imaging [address] [place] [address] Palpitations; Monochorionic diamniotic twin gestation in second trimester Discharge Disposition: Home 10/10/2024 Travel 10/04/2024 4:45 PM EDT - 10/04/2024 11:59 PM EDT Hospital Encounter [facility] [address] [facility] [place] [address] Palpitations Discharge Disposition: Home 10/04/2024 Travel 10/01/2024 Telephone Maternal- Medicine at [facility] [address] [facility] [place] [address] Susan Beltran LPN 10/01/2024 Telephone Maternal- Medicine at [facility] [address] [place] [address] Susan Beltran LPN 09/27/2024 10:30 AM EDT Office Visit Maternal- Medicine at [facility] [address] [place] [address] Alex Subramanian MD Simmonds, Lisa E, MD Monochorionic diamniotic twin gestation in second trimester (Primary Dx) 09/27/2024 9:01 AM EDT - 09/27/2024 11:59 PM EDT Hospital Encounter [facility] US Imaging [address] [facility] [place] [address] Screening, , for anatomic survey Discharge Disposition: Home 09/27/2024 Orders Only Maternal- Medicine at [facility] [address] [place] [address] Susan Beltran LPN Palpitations (Primary Dx); Monochorionic diamniotic twin gestation in second trimester 09/27/2024 Orders Only Maternal- Medicine at [facility] [address] [facility] [place] [address] Susan Beltran LPN Palpitations (Primary Dx) 09/25/2024 [...] = 0.6 oz pur e alcohol) [facility] Utilities Answer Date Recorded In [...] Sign Reading Time Taken Comments Blood Pressure 114/63 12/06/2024 10:01 AM EDT Pulse 72 12/06/2024 10:01 AM EDT Temperature 37 C (98.6 F) 11/08/2024 [...] Info) Description 12/29/2024 11:00 AM EDT Appointment [facility] US Imaging [address] [place] [address] 12/29/2024 1:00 PM EDT Office Visit Maternal- Medicine at [facility] [address] [place] [address] Alex Subramanian MD [address], [address] [place] [address] 01/10/2025 8:30 AM EDT Office Visit Maternal- Medicine at [facility] [address] [place] [address] Jefferson Nava MD [address], [address] [place] [address] Health Maintenance Due Date Last Done Comments Depression Screening 2007 Adult BMI Follow Up Plan 08/06/2013 DTaP,Tdap and Td Vaccines (7 - Td or Tdap) 04/26/2023 04/26/2013, 08/28/2000, 12/27/1996, Additional history exists Influenza Vaccine 01/24/2025 03/09/2019, , 03/05/2017, Additional history exists Adult BMI Screening 11/15/2025 11/15/2024 Tobacco Screening 12/06/2025 12/06/2024 Pap Smear 09/24/2027 09/23/2024, 02/23/2024 Medical Devices [...] diamniotic twin gestation in second trimester US MFM LMTD OB, 1 OR MORE FETUS Routine 12/13/2024 4:52 PM EDT Intrauterine growth restriction affecting antepartum care of mother in second trimester, fetus 1 of multiple gestation Intrauterine growth restriction affecting antepartum care of mother in second trimester, fetus 2 of multiple gestation Monochorionic diamniotic twin gestation in second trimester US M OB FOLLOW-UP, 1 FETUS Routine 12/06/2024 10:02 AM EDT Vasa previa, fetus 1 of multiple gestation Intrauterine growth restriction affecting antepartum care of mother in second trimester, fetus 1 Monochorionic diamniotic twin gestation in second trimester US M LMTD OB, 1 OR MORE FETUS Routine 11/29/2024 4:12 PM EDT Monochorionic diamniotic twin , antepartum IUGR (intrauterine growth restriction) affecting care of mother, second trimester, not applicable or unspecified fetus US MFM LMTD OB, 1 OR MORE FETUS Routine 11/22/2024 9:53 AM EDT Monochorionic diamniotic twin gestation in second trimester US M OB FOLLOW-UP, 1 FETUS Routine 11/15/2024 3:55 PM EDT Encounter for other screening follow-up Monochorionic diamniotic twin gestation in second trimester FREE CELL DNA (NON-[facility] SEND OUT) Routine 11/13/2024 11:51 AM EDT UNLISTED LAB TEST Routine 11/12/2024 Monochorionic diamniotic [...] ABORH Routine 11/07/2024 11:18 AM EDT US MFM OB TRANSVAGINAL Routine 10:45 AM EDT EXTRA [...] CULTURE STAT 11/07/2024 7:39 AM EDT US MFM LMTD OB, 1 OR MORE FETUS Routine 11/01/2024 2:40 PM EDT Monochorionic diamniotic twin gestation in second trimester US MFM COMPREHENSIVE ANATOMIC SURVEY Routine 10/26/2024 12:47 PM [...] fetus 1 of multiple gestation Palpitations US [facility] LMTD OB, 1 OR MORE FETUS Routine 10/11/2024 4:49 PM EDT Palpitations Monochorionic diamniotic twin gestation in second trimester ECG 12-LEAD Routine 10/04/2024 5:06 PM EDT Palpitations US [facility] BASIC OB >/=14 WEEKS, 1 FETUS Routine 09/27/2024 10:59 AM EDT Screening, , for anatomic survey from Last 3 Months Results * US [facility] LMTD OB, 1 OR MORE FETUS (12/20/2024 3:58 PM EDT) Only the most recent of12 resultswithin the time period is included. Anatomical Region Laterality Modality OB-DIRECTOR MUSEUM OR ZOO Ultrasound 12/20/2024 3:17 PM EDT Narrative 12/20/2024 4:11 PM EDT NAME: ALIVIA HARTMAN MANOJ : 1995 SEX: F Accession Number: [id number] ORDERING PHYSICIAN: BLAISE TSE REFERRING PHYSICIAN: VIC MCKEON Coding ----- --------- Procedures 55961: Limited OB / NATHAN, 1 or More Fetuses 33229: Doppler velocimetry, ; umbilical artery. 2 85431: Doppler velocimetry, ; middle cerebral artery. 2 71231: Doppler Ductus Venosus. 2 Indication ----- --------- Shoshone-Di twin , IUGR-Poor growth-twin A & B, Pre term contractions, Supervision of high risk History ----- --------- OB History 1. Para 0 [id number] Maternal Assessment ----- --------- Physical Exam Height [...] primary OB provider unless otherwise specified by [facility]. Results forwarded to ordering provider so they can follow up with the patient as necessary. Procedure Note Jefferson Nava MD - 12/20/2024 NAME: ALIVIA HARTMAN : 1995 SEX: F Accession Number: [id number] ORDERING PHYSICIAN: BLAISE TSE REFERRING PHYSICIAN: VIC MCKEON Coding ----- --------- Procedures 17904: Limited OB / NATHAN, 1 or More Fetuses 27008: Doppler velocimetry, ; umbilical artery. 2 91249: Doppler velocimetry, ; middle cerebral artery. 2 75045: Doppler Ductus Venosus. 2 Indication ----- --------- Shoshone-Di twin , IUGR-Poor growth-twin A & B, Pre termcontractions, Supervision of high risk History ----- --------- OB History 1. Para 0 [id number] Maternal Assessment ----- --------- Physical Exam Height [...] byprimary OB provider unless otherwise specified by [facility]. Results forwarded to ordering provider so they can follow up with thepatient as necessary. us Blaise Tse MD [facility] ORDERABLES Final Result * Free Cell DNA (Non-[facility] Send Out) (11/13/2024 11:51 AM EDT) us Not In System Ref Prov LAB BLOOD ORDERABLES Inga l Result MANUALLY TRANSCRIBED RESULTS * Unlisted Lab Test (11/12/2024) Only the most recent of2 resultswithin the time period is included. Free Cell Dna LOW RISK MANUALLY TRANSCRIBED RESULTS Blood (Arm) 11/12/2024 us Blasie Tse MD LAB BLOOD ORDERABLES Final Resul t MANUALLY TRANSCRIBED RESULTS * ABO Rh Repeat (11/07/2024 12:05 PM EDT) Only the most recent of2 resultswithin the time period is included. 11/07/2024 12:0 5 PM EDT us Melody Estes MD BLOOD BANK TEST ORDERABLES F inal Result [facility]QUEST * SST TOP (11/07/2024 10:18 AM EDT) Extra Tube Auto Resulted 11/07/2024 12:01 PM EDT [facility] Blood Venous blood / Unknown 11/07/2024 10:18 AM EDT 11/07/2024 10:18 AM EDT us Farshad Negro MD LAB BLOOD ORDERABLES Final Res ult Performing Organization Address City/[facility]/ZIP Co de Phone Number [facility] [address] [place] [address], [place] [phone] * (ABNORMAL) CBC auto differential (11/07/2024 10:03 AM EDT) WBC 9.6 4 - 11 x10E9/L 11/07/2024 10:34 AM EDT [facility] RBC Count 3.85 3.8 - 5.2 X10E12/L 11/07/2024 10:34 AM EDT [facility] Hemoglobin 11.3(L) 11.7 - 15.5 g/dL 11/07/2024 10:34 AM EDT [facility] Hematocrit 33.3(L) 35 - 47 % 11/07/2024 10:34 AM EDT [facility] MCV 86 80 - 100 fL 11/07/2024 10:34 AM EDT [facility] MCH 29.2 27 - 34 pg 11/07/2024 10:34 AM [facility] MCHC 33.9 32 - 36 g/dL 11/07/2024 10:34 AM EDT [facility] RDW 13.8 11.5 - 15 % 11/07/2024 10:34 AM EDT [facility] Platelet Count 253 150 - 450 X10E9/L 11/07/2024 10:34 AM EDT [facility] MPV 7.4 7 - 12 fL 11/07/2024 10:34 AM [facility] Neutrophils % 84.5 % 11/07/2024 10:34 AM [facility] Lymphocytes % 9.8 % 11/07/2024 10:34 AM EDT [facility] Monocytes % 5.5 % 11/07/2024 10:34 AM [facility] Eosinophils % 0.1 % 11/07/2024 10:34 AM EDT [facility] Basophils % 0.1 % 11/07/2024 10:34 AM [facility] Neutrophils Absolute (A) 8.1(H) 1.5 - 6.6 10*3/uL 11/07/2024 10:34 AM EDT [facility] Lymphocytes Absolute 0.9(L) 1.0 - 3.5 10*3/uL 11/07/2024 10:34 AM EDT [facility] Monocytes Absolute 0.5 0.0 - 0.9 10*3/uL 11/07/2024 10:34 AM EDT [facility] Eosinophils Absolute 0.0 0.0 - 0.4 10*3/uL 11/07/2024 10:34 AM EDT [facility] Basophils Absolute 0.0 0.0 - 0.2 10*3/uL 11/07/2024 10:34 AM EDT [facility] Differential Type AUTOMATED DIFFERENTIAL 11/07/2024 10:34 AM EDT [facility] Blood Venous blood / Unknown Venipuncture / Unknown 11/07/2024 10:03 AM EDT 11/07/2024 10:03 AM EDT us Melody Estes MD LAB BLOOD ORDERABLES Final R esult [facility] [address] [place] [address], * Type and screen(includes indirect pedro) (11/07/2024 10:03 AM EDT) Pathologist [facility] ABO A 11/07/2024 10:48 AM EDT [facility] RH Positive 11/07/2024 10:48 AM EDT [facility] Antibody Screen Negative 11/07/2024 10:48 AM EDT [facility] Blood Venous blood / Unknown Venipuncture / Unknown 11/07/2024 10:03 AM EDT 11/07/2024 10:03 AM EDT us Melody Estes MD BLOOD BANK TEST ORDERABLES E dited Result - Final [facility] BB - [facility] [address] [place] [address], [facility] [address] [place] [address], * Chlamydia/GC by PCR Claritza Swab (11/07/2024 8:50 AM EDT) Pathologist [facility] CHLAMYDIA DNA(PCR) Negative Negative 11/08/2024 11:15 AM EDT [facility] Comment:Chlamydia trachomati s not detected by nucleic acid amplification. This does not exclude the possibility of infection because results are dependent on adequate specimen collection. GONORRHOEAE DNA(PCR) Negative Negative 11/08/2024 11:15 AM EDT [facility] Comment:Neisseria gonorrhoea e not detected by nucleic acid amplification. This does not exclude the possibility of infection because results are dependent on adequate specimen collection. Swab Vaginal structure / Unknown 11/07/2024 8:50 AM EDT 11/07/2024 9:12 AM EDT Lisa Lopez MANAGER TRAFFIC-[facility] MICROBIOLOGY - GENE RAL ORDERABLES Final Result [facility] [address] [place] [address], * Vaginitis Panel PCR (11/07/2024 8:50 AM EDT) BACT. VAGINOSIS DNA Not Detected Not Detected 11/07/2024 3:09 PM EDT [facility] Comment:Qualitative results are reported based on detection and quantitation of targeted organism markers which include: Lactobacillus spp. (L. crispatus and L. jensenii), Gardnerella vaginalis, Atopobium vaginae, Bacterial Vaginosis Associated Bacteria-2 (BVAB-2) and Megasphaera-1. KENYA SPECIES DNA Not Detected Not Detected 11/07/2024 3:09 PM EDT [facility] Comment:[place] species not detected include: C. albicans, C. tropicalis, C. parapsilosis or C. dubliniensis. KENYA KRUSEI DNA Not Detected Not Detected 11/07/2024 3:09 PM EDT [facility] Comment:No [place] krusei de tected. KENYA GLABRATA DNA Not Detected Not Detected 11/07/2024 3:09 PM EDT [facility] Comment:No [place] glabrata detected. TRICHOMONAS VAG DNA Not Detected Not Detected 11/07/2024 3:09 PM EDT [facility] Comment: No Trichomonas vaginalis detected. BD MAX Vaginal Panel has not been evaluated for patients under 18 years old. Results for these patients should be reviewed and assessed in accordance with clinical presentation to determine patient diagnosis. Swab Vaginal structure / Unknown 11/07/2024 8:50 AM EDT 11/07/2024 9:12 AM EDT Lisa Lopez MANAGER TRAFFIC-[facility] MICROBIOLOGY - GENE RAL ORDERABLES Final Result Performing Organization Address City/[facility]/ZIP Co de Phone Number [facility] [address] [place] [address], [place] [phone] * Strep B screen (11/07/2024 8:50 AM EDT) CULTURE RESULTS NEGATIVE FOR GROUP B STREPTOCOCCUS BY NUCLEIC ACID AMPLIFICATION 11/08/2024 3:27 PM EDT [facility] Swab (Vagina/Rectum) 11/07/2024 8:50 AM EDT 11/07/2024 9:12 AM EDT Lisa Lopez APRN-CL[facility] MICROBIOLOGY - GENE RAL ORDERABLES Final Result Performing Organization Address [facility] de Phone Number [facility] [address] [place] [address], [place] [phone] * Er Extra Urine (11/07/2024 7:39 AM EDT) Extra Tube Auto Resulted 11/07/2024 9:01 AM EDT [facility] Urine Urine specimen collection, clean catch / Unknown 11/07/2024 7:39 AM EDT 11/07/2024 7:51 AM EDT Farshad Negro MD URINE ORDERABLES Final Result Performing Organization Address [facility]/ZIP Co de Phone Number [facility] [address] [place] [address], [place] [phone] * (ABNORMAL) Urinalysis (11/07/2024 7:39 AM EDT) COLOR Colorless Yellow, Colorless 11/07/2024 8:04 AM EDT [facility] TURBIDITY Hazy(A) Clear 11/07/2024 8:04 AM EDT [facility] SPECIFIC GRAVITY 1.003 1.003 - 1.035 11/07/2024 8:04 AM EDT [facility] NITRITE Negative Negative 11/07/2024 8:04 AM EDT [facility] PH,URINE 6.5 5.0 - 8.5 11/07/2024 8:04 AM EDT [facility] LEUKOCYTE ESTERASE Small(A) Negative 11/07/2024 8:04 AM EDT [facility] PROTEIN Negative Negative 11/07/2024 8:04 AM EDT [facility] KETONES (URINE) Negative Negative 8:04 AM EDT [facility] UROBILINOGEN <1.1 eu/dL <1.1 eu/dL 11/07/2024 8:04 AM EDT [facility] BILIRUBIN (URINE) Negative Negative 11/07/2024 8:04 AM EDT [facility] BLOOD/HGB Negative Negative 11/07/2024 8:04 AM EDT [facility] MUCOUS Present(A) None 11/07/2024 8:04 AM EDT [facility] R.B.CELLS 3 0 - 5 11/07/2024 8:04 AM EDT [facility] SQUAMOUS EPITHELIUM 9(H) 0 - 5 11/07/2024 8:04 AM EDT [facility] W.B.CELLS 9(H) 0 - 5 11/07/2024 8:04 AM EDT [facility] GLUCOSE (URINE) Negative Negative 8:04 AM EDT [facility] Urine 11/07/2024 7:39 AM EDT 11/07/2024 7:50 AM EDT us Lisa Lopez MANAGER TRAFFIC-CNM URINE ORDERABLES Fi nal Result [facility] [address] [place] [address], [place] [phone] * Urine Culture Urine, Clean Catch Midstream (11/07/2024 7:39 AM EDT) CULTURE RESULTS NO GROWTH AT <1000 CFU/mL 11/08/2024 8:24 AM EDT [facility] Urine Urine specimen collection, clean catch / Unknown 11/07/2024 7:39 AM EDT 11/07/2024 7:50 AM EDT Lisa Lopez APRN-[facility] MICROBIOLOGY - GENE RAL ORDERABLES Final Result Performing Organization Address City/[facility]/ZIP Co de Phone Number [facility] [address] [place] [address], * CMV IgM (10/26/2024 12:37 PM EDT) CYTOMEGALOVIRUS IGM 0.2 <0.9 AI 10/26 2:54 PM EDT [facility] Blood Venous blood / Unknown Venipuncture / Unknown 10/26/2024 12:37 PM EDT 10/26/2024 12:37 PM EDT Narrative [facility] - 10/26/2024 2:54 PM EDT Intepretation < 0.9 Negative 0.9 - 1.0 Equivocal > 1.0 Positive The following results were obtained with the [employer] 2[address] To[address] IgM test. Results obtained from other Supervisor [employer]'s assay methods may not be used interchangeably. Blaise Tse MD LAB BLOOD ORDERABLES Final Resul t [facility] [address] [place] [address], * (ABNORMAL) Cytomegalovirus antibody, IgG (10/26/2024 12:37 PM EDT) CYTOMEGALOVIRUS IGG >8.0(H) <0.9 AI 10/26 2:54 PM EDT [facility] Blood Venous blood / Unknown Venipuncture / Unknown 10/26/2024 12:37 PM EDT 10/26/2024 12:37 PM EDT Narrative [facility] - 10/26/2024 2:54 PM EDT Intepretation < 0.9 Negative 0.9 - 1.0 Equivocal > 1.0 Positive Blaise Tse MD LAB BLOOD ORDERABLES Final Resul t [facility] [address] [place] [address], * ECG 12 lead (10/04/2024 5:06 PM EDT) 10/04/2024 5:06 PM EDT Narrative [facility] - 10/06/2024 11:23 AM EDT Mya Dumont MD ECG ORDERABLES Final Result Performing Organization Address City/State/[facility] Co de Phone Number [facility] from Last 3 Months Insurance AENA Member Subscriber Plan / Payer (Ef fective 2024-Present) Name:MINNIE BUNCH Relation to Subscriber:Spouse Name:Sukhwinder Bunch Date of :1993 (Home) (Work) Address: [address] [place] [address] Payer ID:[id number] (NAIC) Type:Not on file Address: [facility] [id number] [place] [id number] Advance Directives * Full Code (Latest Code Status on File) Date Activated Date Inactivated Comments 11/07/2024 9:33 AM 11/08/2024 4:22 PM Care Teams Vacuum Drier Operator Relationship Specialty Start Date End Date Belén Rooney MD [address] [place] [phone] PCP - General Family Medicine 09/29/18
--- OUTSIDE RECORDS SUMMARY | 2024-12-24 10:02 | XMS_ITS | Encounter Summary ---
Author Organization [facility] Address [address] [place] [address] Care Team Providers Care Computer Art Instructor Name Role Phone Marlon Laguna MD Primary Care Provider [phone] Saul Eugene DO Unavailable Encounter Details Date Type Department Care Team (Late st Contact Info) Description 09/28/2024 Abstract [facility] [address] [place] [phone] Saul Eugene DO [address] [place], [facility]11 Social History Tobacco Use Types Packs/Day [...] [facility] [address] [place] [address] Saul Eugene DO [address] [place] [address] 03/28/2025 2:00 PM EST Office Visit [facility] [address] [facility] [phone] Saul Eugene DO [address] [facility] [place] [address] documented as of this encounter Goals Goal Patient Goal Type Associated Problems Recent Progress Patient-Stated? Author Reminders Care Plan OB Reminders No Open Scheduling, Background documented as of this encounter Visit Diagnoses Not on filedocumented in this encounter Additional Health Concerns Active Problems Noted Date Diagnosed Date OB Reminders 08/14/2024 documented as of this encounter Care Teams Computer Art Instructor Relationship Specialty Start Date End Date Marlon Laguna MD [address] [facility] [place] [address] PCP - General Family Medicine 08/29/23 Saul Eugene DO [address] [place] [address] Referring Physician Obstetrics and Gynecology 08/16/24 documented as of this encounter
--- OUTSIDE RECORDS SUMMARY | 2024-12-24 10:02 | XMS_ITS | Encounter Summary ---
Author Organization [facility] Address [address] [place] [address] Care Team Providers Care Academic Support Specialist Name Role Phone Marlon Laguna MD Primary Care Provider [phone] Saul Eugene DO Unavailable Encounter Details Date Type Department Care Team (Late st Contact Info) Description 12/06/2024 Abstract [facility] [address] [place] [phone] Saul Eugene DO [address] [place], [facility]11 Social History Tobacco Use Types Packs/Day [...] [facility] [address] [place] [address] Saul Eugene DO [address] [place] [address] 03/28/2025 2:00 PM EST Office Visit [facility] [address] [facility] [place] [place] [phone] Saul Eugene DO [address] [facility] [place] [address] documented as of this encounter Goals Goal Patient Goal Type Associated Problems Recent Progress Patient-Stated? Author Reminders Care Plan OB Reminders No Open Scheduling, Background documented as of this encounter Visit Diagnoses Not on filedocumented in this encounter Additional Health Concerns Active Problems Noted Date Diagnosed Date OB Reminders 08/14/2024 documented as of this encounter Care Teams Academic Support Specialist Relationship Specialty Start Date End Date Marlon Laguna MD [address] [facility] [place] [address] PCP - General Family Medicine 08/29/23 Saul Eugene DO [address] [place] [address] Referring Physician Obstetrics and Gynecology 08/16/24 documented as of this encounter
--- OUTSIDE RECORDS SUMMARY | 2024-12-24 10:02 | XMS_ITS | Encounter Summary ---
Author Organization [facility] Address [address] [place] [address] Care Team Providers Care Scaffold Builder Name Role Phone Marlon Laguna MD Primary Care Provider [phone] Saul Eugene DO Unavailable Encounter Details Date Type Department Care Team (Late st Contact Info) Description 12/01/2024 Abstract [facility] [address] [facility] [place] [address] Ximena Aly MA Social History Tobacco [...] 11:30 AM EDT Routine [facility] [address] [place] [address] Saul Eugene DO [address] [place] [address] 03/28/2025 2:00 PM EST Office Visit [facility] [address] [place] [phone] Saul uEgene DO [address] [place] [address] documented as of this encounter Goals Goal Patient Goal Type Associated Problems Recent Progress Patient-Stated? Author Reminders Care Plan OB Reminders No Open Scheduling, Background documented as of this encounter Visit Diagnoses Not on filedocumented in this encounter Additional Health Concerns Active Problems Noted Date Diagnosed Date OB Reminders 08/14/2024 documented as of this encounter Care Teams Scaffold Builder Relationship Specialty Start Date End Date Marlon Laguna MD [address] [place] [address] PCP - General Family Medicine 08/29/23 Saul Eugene DO [address] [place] [address] Referring Physician Obstetrics and Gynecology 08/16/24 documented as of this encounter
--- OUTSIDE RECORDS SUMMARY | 2024-12-24 10:02 | XMS_ITS | Encounter Summary ---
Author Organization [facility] Address [address] [place] [address] Care Team Providers Care Regional Truck Driver Name Role Phone Marlon Laguna MD Primary Care Provider [phone] Saul Eugene DO Unavailable Encounter Details Date Type Department Care Team (Late Contact Info) Description 03/03/2024 Orders Only [facility] [address] [place] [address] Gabrielle Mayer LPN [address] [place] [phone] Social History Tobacco Use Types Packs/Day Years [...] AM EDT Routine [facility] [address] [place] [address] Saul Eugene DO [address] [facility] [place] [address] 03/28/2025 2:00 PM EST Office Visit [facility] [address] [facility] [place] [phone] Saul Eugene DO [address] [facility] [place] [address] documented as of this encounter Procedures Procedure Name Priority Date/Time Associated Diagnosis Comments PAP SMEAR Routine 02/23/2024 12:00 AM EDT documented in this encounter Results * Pap Smear (02/23/2024 12:00 AM EDT) Swab Cervical swab / Unknown us Saul Eugene DO LAB CYTOLOGY ORDERABLES Final Re sult EXTERNAL LAB documented in this encounter Visit Diagnoses Not on filedocumented in this encounter Care Teams Regional Truck Driver Relationship Specialty Start Date End Date Marlon Laguna MD [address] [facility] [place] [address] PCP - General Family Medicine 08/29/23 Saul Eugene DO [address] [facility] [place] [address] Referring Physician Obstetrics and Gynecology 08/16/24 documented as of this encounter
--- OUTSIDE RECORDS SUMMARY | 2024-12-24 10:02 | XMS_ITS | Encounter Summary ---
Author Organization [employer] tem Address [id number] [address] [place] [address] Care Team Providers Care Rice Cleaning Machine Tender Name Role Phone Belén Rooney MD Primary Care Provider Encounter Details Date Type Department Care Team (Latest Contact Info) Description 12/11/2024 Travel Social History Tobacco Use Types Packs/Day Years Used Date Smoking Tobacco: Never Smokeless Tobacco: Never Alcohol Use Standard Drinks/Week Comments Not Currently 0 (1 standard drink = 0.6 oz pur e alcohol) [facility] Utilities Answer Date Recorded In the [...] Info) Description 12/29/2024 11:00 AM EDT Appointment [facility] US Imaging [address] [facility] [place] [address] 12/29/2024 1:00 PM EDT Office Visit Maternal- Medicine at [facility] [address] [facility] [place] [address] Alex Subramanian MD [address], [address] [place] [address] 01/10/2025 8:30 AM EDT Office Visit Maternal- Medicine at [facility] [address] [facility] [place] [address] Jefferson Nava MD [address], [address] [place] [address] documented as of this encounter Visit Diagnoses Not on filedocumented in this encounter Care Teams Rice Cleaning Machine Tender Relationship Specialty Start Date End Date Belén Rooney MD [address] [place] [phone] PCP - General Family Medicine 09/29/18 documented as of this encounter
--- OUTSIDE RECORDS SUMMARY | 2024-12-24 10:02 | XMS_ITS | Encounter Summary ---
Author Organization [facility] Address [address] [place] [address] Care Team Providers Care Patient Observation Assistant Name Role Phone Marlon Laguna MD Primary Care Provider [phone] Saul Eugene DO Unavailable Encounter Details Date Type Department Care Team (Late st Contact Info) Description 11/24/2024 Abstract [facility] [address] [place] [phone] Saul Eugene DO [address] [place], [facility]11 Social History Tobacco Use Types Packs/Day [...] [facility] [address] [place] [address] Saul Eugene DO [address] [place] [address] 03/28/2025 2:00 PM EST Office Visit [facility] [address] [facility] [place] [address] Saul Eugene DO [address] [facility] [place] [address] documented as of this encounter Goals Goal Patient Goal Type Associated Problems Recent Progress Patient-Stated? Author Reminders Care Plan OB Reminders No Open Scheduling, Background documented as of this encounter Visit Diagnoses Not on filedocumented in this encounter Additional Health Concerns Active Problems Noted Date Diagnosed Date OB Reminders 08/14/2024 documented as of this encounter Care Teams Patient Observation Assistant Relationship Specialty Start Date End Date Marlon Laguna MD [address] [facility] [place] [address] PCP - General Family Medicine 08/29/23 Saul Eugene DO [address] [place] [address] Referring Physician Obstetrics and Gynecology 08/16/24 documented as of this encounter
--- OUTSIDE RECORDS SUMMARY | 2024-12-24 10:02 | XMS_ITS | Encounter Summary ---
Author Organization [facility] [employer] [facility] tem Address [id number] [address] [place] [address] Care Team Providers Care Game Preserve Manager Name Role Phone Belén Rooney MD Primary Care Provider Encounter Details Date Type Department Care Team (Late st Contact Info) Description 11/04/2024 Orders Only Maternal- Medicine at [facility] [address] [facility] [place] [phone] Susan Beltran LPN Intrauterine growth restriction affecting [...] = 0.6 oz pur e alcohol) [facility] Utilities Answer Date Recorded In the past 12 months has [employer] electric, gas, oil, or water company threatened [...] Info) Description 12/29/2024 11:00 AM EDT Appointment [facility] US Imaging [address] [place] [phone] 12/29/2024 1:00 PM EDT Office Visit Maternal- Medicine at [facility] [address] [place] [address] Alex Subramanian MD [address], [address] [place] [address] 01/10/2025 8:30 AM EDT Office Visit Maternal- Medicine at [facility] [address] [place] [phone] Jefferson Nava MD [address], [address] [place] [address] documented as of this encounter Procedures Procedure [...] Palpitations documented in this encounter Care Teams Game Preserve Manager Relationship Specialty Start Date End Date Belén Rooney MD [address] [place] [phone] PCP - General Family Medicine 09/29/18 documented as of this encounter
--- OUTSIDE RECORDS SUMMARY | 2024-12-24 10:02 | XMS_ITS | Patient Health Record ---
Author Organization [facility] vices Address [address] [facility] [phone] Care Team Providers Care Express Manager Name Role Phone Heaven Vera Unavailable [phone] Deshawn Moon Unavailable [phone] Yuliet Lozano Unavailable [phone] Allergies No Known Allergies Reason For Referral [...] 1 tablet Orally Thre e times a day; Duration: 7 days 09/15/2023 Not-Taking Gabapentin 100 MG 1 capsule Orally Onc e a day Not-Taking Ibuprofen 800 MG 1 tablet with food o r milk as needed Orally every 8 hrs; Duration: 7 days 09/15/2023 Not-Taking Diflucan 150 MG 1 tablet Orally once ; Duration: 1 days 09/15/2023 Not-Taking Social History Sex Assigned At : Social History Observation Description Sex Assigned At Female Tobacco Use/Smoking Question Answer Notes Additional Findings: Tobacco Non-User Current no n-smoker PRAPARE Question Answer Notes Date Completed/Updated: 06/20/2023 juleee nt entered data What is your current housing situation? I have housing patient entered data Are you worried about losing your housing? No patient entered data What is the highest level of school that you have finished? 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 Stress is when someone feels tense, nervous, anxious, or can't sleep at night because their mind is troubled A little bit patient entered data In the past year have you sp ent more than 2 nights in a row in a nursing home, shelter, mcc center, or juvenile correctional facility? No patient [...] Encounter Location Date Provider Diagnosis Dental Main [facility] [place], [place] [id number] 02/23/2024 Heaven French-Hudley Necrosis of pulp K 04.1 and Encounter for dental examination and cleaning without abnormal findings Z01.20 Dental Main [address] [place], [place] [id number] 11/19/2024 Yuliet Lozano Dental caries into dentine [...] Name:Deshawn Moon , 06/10/2025 09:45:00 AM, [address] [place], [place], [id number], Insurance Providers Payer Name Payer Address Payer Phone Subscriber Number Group Number Insured Name Patient Relationship to Insured Coverage Start Date Coverage End Date [facility] [address] [place], [place] [id number] Sukhwinder Pedro Spouse - patient is the spouse of the insured
--- OUTSIDE RECORDS SUMMARY | 2024-12-24 10:02 | XMS_ITS | Encounter Summary ---
Author Organization [facility] Address [address] [place] [address] Care Team Providers Care Dean Of Faculty Name Role Phone Marlon Laguna MD Primary Care Provider [phone] Saul Eugene DO Unavailable Encounter Details Date Type Department Care Team (Late st Contact Info) Description 08/16/2024 Abstract [facility] [address] [place] [phone] Saul Eugene DO [address] [place], [place] [...] [facility] [address] [place] [address] Saul Eugene DO [address] [place] [address] 03/28/2025 2:00 PM EST Office Visit [facility] [address] [facility] [place] [address] Saul Eugene DO [address] [facility] [place] [address] documented as of this encounter Goals Goal Patient Goal Type Associated Problems Recent Progress Patient-Stated? Author Reminders Care Plan OB Reminders No Open Scheduling, Background documented as of this encounter Visit Diagnoses Not on filedocumented in this encounter Additional Health Concerns Active Problems Noted Date Diagnosed Date OB Reminders 08/14/2024 documented as of this encounter Care Teams Dean Of Faculty Relationship Specialty Start Date End Date Marlon Laguna MD [address] [place] [address] PCP - General Family Medicine 08/29/23 Saul Eugene DO [address] [place] [address] Referring Physician Obstetrics and Gynecology 08/16/24 documented as of this encounter
--- OUTSIDE RECORDS SUMMARY | 2024-12-24 10:02 | XMS_ITS | Encounter Summary ---
Author Organization [facility] [employer] [facility] tem Address [id number] [address] [place] [address] Care Team Providers Care Mobile Engineer Name Role Phone Belén Rooney MD Primary Care Provider Encounter Details Date Type Department Care Team (Late st Contact Info) Description 11/23/2024 Orders Only Maternal- Medicine at [facility] [address] [facility] [place] [phone] Susan Beltran LPN Monochorionic diamniotic twin gestation [...] Recorded In the past 12 months has [employer] electric, gas, oil, or water company threatened [...] Description 12/29/2024 11:00 AM EDT Appointment [facility] US Imaging [address] [place] [phone] 12/29/2024 1:00 PM EDT Office Visit Maternal- Medicine at [facility] [address] [place] [phone] Alex Subramanian MD [address], [address] [place] [address] 01/10/2025 8:30 AM EDT Office Visit Maternal- Medicine at [facility] [address] [place] [address] Jefferson Nava MD [address], [address] [place] [address] documented as of this encounter Procedures Procedure [...] Palpitations documented in this encounter Care Teams Mobile Engineer Relationship Specialty Start Date End Date Belén Rooney MD [address] [place] [phone] PCP - General Family Medicine 09/29/18 documented as of this encounter
--- OUTSIDE RECORDS SUMMARY | 2024-12-24 10:02 | XMS_ITS | Encounter Summary ---
Author Organization [facility] Address [address] [place] [address] Care Team Providers Care Icicle Machine Operator Name Role Phone Marlon Laguna MD Primary Care Provider [phone] Saul Eugene DO Unavailable Encounter Details Date Type Department Care Team (Late st Contact Info) Description 09/27/2024 Abstract [facility] [address] [place] [phone] Saul Eugene DO [address] [place], [facility]11 Social History Tobacco Use Types Packs/Day [...] [facility] [address] [place] [address] Saul Eugene DO [address] [place] [address] 03/28/2025 2:00 PM EST Office Visit [facility] [address] [facility] [place] [address] Saul Eugene DO [address] [facility] [place] [address] documented as of this encounter Goals Goal Patient Goal Type Associated Problems Recent Progress Patient-Stated? Author Reminders Care Plan OB Reminders No Open Scheduling, Background documented as of this encounter Visit Diagnoses Not on filedocumented in this encounter Additional Health Concerns Active Problems Noted Date Diagnosed Date OB Reminders 08/14/2024 documented as of this encounter Care Teams Icicle Machine Operator Relationship Specialty Start Date End Date Marlon Laguna MD [address] [facility] [place] [address] PCP - General Family Medicine 08/29/23 Saul Eugene DO [address] [place] [address] Referring Physician Obstetrics and Gynecology 08/16/24 documented as of this encounter
--- OUTSIDE RECORDS SUMMARY | 2024-12-24 10:02 | XMS_ITS | Encounter Summary ---
Author Organization [facility] Address [address] [place] [address] Care Team Providers Care Blocking Machine Operator Second Name Role Phone Marlon Laguna MD Primary Care Provider [phone] Saul Eugene DO Unavailable Encounter Details Date Type Department Care Team (Late st Contact Info) Description 10/11/2024 Abstract [facility] [address] [place] [phone] Saul Eugene DO [address] [place], [facility]11 Social History Tobacco Use Types Packs/Day Years [...] [facility] [address] [place] [address] Saul Eugene DO [address] [place] [address] 03/28/2025 2:00 PM EST Office Visit [facility] [address] [facility] [place] [address] Saul Eugene DO [address] [facility] [place] [address] documented as of this encounter Goals Goal Patient Goal Type Associated Problems Recent Progress Patient-Stated? Author Reminders Care Plan OB Reminders No Open Scheduling, Background documented as of this encounter Visit Diagnoses Not on filedocumented in this encounter Additional Health Concerns Active Problems Noted Date Diagnosed Date OB Reminders 08/14/2024 documented as of this encounter Care Teams Blocking Machine Operator Second Relationship Specialty Start Date End Date Marlon Laguna MD [address] [facility] [place] [address] PCP - General Family Medicine 08/29/23 Saul Eugene DO [address] [place] [address] Referring Physician Obstetrics and Gynecology 08/16/24 documented as of this encounter
--- OUTSIDE RECORDS SUMMARY | 2024-12-24 10:02 | XMS_ITS | Encounter Summary ---
Author Organization [employer] tem Address [id number] [address] [place] [address] Care Team Providers Care Superintendent Drivers Name Role Phone Belén Rooney MD Primary Care Provider [phone] Encounter Details Date Type Department Care Team (Latest Contact Info) Description 12/18/2024 Travel Social History Tobacco Use Types Packs/Day Years Used Date Smoking Tobacco: Never Smokeless Tobacco: Never Alcohol Use Standard Drinks/Week Comments Not Currently 0 (1 standard drink = 0.6 oz pur e alcohol) [facility] Utilities Answer Date Recorded In the [...] Info) Description 12/29/2024 11:00 AM EDT Appointment [facility] US Imaging [address] [facility] [place] [address] 12/29/2024 1:00 PM EDT Office Visit Maternal- Medicine at [facility] [address] [facility] [place] [address] Alex Subramanian MD [address], [address] [place] [address] 01/10/2025 8:30 AM EDT Office Visit Maternal- Medicine at [facility] [address] [facility] [place] [address] Jefferson Nava MD [address], [address] [place] [address] documented as of this encounter Visit Diagnoses Not on filedocumented in this encounter Care Teams Superintendent Drivers Relationship Specialty Start Date End Date Belén Rooney MD [address] [place] [phone] PCP - General Family Medicine 09/29/18 documented as of this encounter
--- OUTSIDE RECORDS SUMMARY | 2024-12-24 10:02 | XMS_ITS | Encounter Summary ---
Author Organization [facility] Address [address] [place] [address] Care Team Providers Care Outpatient Dietitian Name Role Phone Marlon Laguna MD Primary Care Provider [phone] Saul Eugene DO Unavailable Encounter Details Date Type Department Care Team (Late st Contact Info) Description 08/16/2024 Abstract [facility] [address] [place] [phone] Saul Eugene DO [address] [place], [id number] Social History Tobacco Use Types Packs/Day Years [...] [facility] [address] [place] [address] Saul Eugene DO [address] [place] [address] 03/28/2025 2:00 PM EST Office Visit [facility] [address] [place] [phone] Saul Eugene DO [address] [facility] [address] documented as of this encounter Goals Goal Patient Goal Type Associated Problems Recent Progress Patient-Stated? Author Reminders Care Plan OB Reminders No Open Scheduling, Background documented as of this encounter Visit Diagnoses Not on filedocumented in this encounter Additional Health Concerns Active Problems Noted Date Diagnosed Date OB Reminders 08/14/2024 documented as of this encounter Care Teams Outpatient Dietitian Relationship Specialty Start Date End Date Marlon Laguna MD [address] [facility] [place] [address] PCP - General Family Medicine 08/29/23 Saul Eugene DO [address] [place] [address] Referring Physician Obstetrics and Gynecology 08/16/24 documented as of this encounter
--- OUTSIDE RECORDS SUMMARY | 2024-12-24 10:02 | XMS_ITS | Encounter Summary ---
Author Organization [facility] Address [address] [place] [address] Care Team Providers Care Plastic Tool Maker Name Role Phone Marlon Laguna MD Primary Care Provider [phone] Saul Eugene DO Unavailable Encounter Details Date Type Department Care Team (Late st Contact Info) Description 11/02/2024 Abstract [facility] [address] [place] [address] Ximena Aly MA Social History Tobacco [...] EDT Routine [facility] [address] [place] [address] Saul Eugene DO [address] [place] [address] 03/28/2025 2:00 PM EST Office Visit [facility] [address] [place] [phone] Saul Eugene DO [address] [place] [address] documented as of this encounter Goals Goal Patient Goal Type Associated Problems Recent Progress Patient-Stated? Author Reminders Care Plan OB Reminders No Open Scheduling, Background documented as of this encounter Visit Diagnoses Not on filedocumented in this encounter Additional Health Concerns Active Problems Noted Date Diagnosed Date OB Reminders 08/14/2024 documented as of this encounter Care Teams Plastic Tool Maker Relationship Specialty Start Date End Date Marlon Laguna MD [address] [facility] [place] [phone] PCP - General Family Medicine 08/29/23 Saul Eugene DO [address] [place] [address] Referring Physician Obstetrics and Gynecology 08/16/24 documented as of this encounter
--- OUTSIDE RECORDS SUMMARY | 2024-12-24 10:02 | XMS_ITS | Encounter Summary ---
Author Organization [facility] [employer] [facility] tem Address [id number] [address] [place] [address] Care Team Providers Care Ambulatory Services Representative Name Role Phone Belén Rooney MD Primary Care Provider [phone] Encounter Details Date Type Department Care Team (Late st Contact Info) Description 12/06/2024 Orders Only Maternal- Medicine at [facility] [address] [place] [phone] Ref Prov, [place] [address] Social History Tobacco Use Types Packs/Day Years Used Date Smoking Tobacco: Never Smokeless Tobacco: Never Alcohol Use Standard Drinks/Week Comments Not Currently 0 (1 standard drink = 0.6 oz pur e alcohol) [facility] Utilities Answer Date Recorded In the past 12 months has [employer], [employer], or [employer] threatened to shut off services in your [...] EDT Appointment [facility] US Imaging [address] [place] [phone] 12/29/2024 1:00 PM EDT Office Visit Maternal- Medicine at [facility] [address] [place] [phone] Alex Subramanian MD [address], [address] [place] [address] 01/10/2025 8:30 AM EDT Office Visit Maternal- Medicine at [facility] [address] [place] [phone] Jefferson Nava MD [address], [address] [place] [address] documented as of this encounter Procedures Procedure Name Priority Date/Time Associated Diagnosis Comments FREE CELL DNA (NON-[facility] SEND OUT) Routine 11/13/2024 11:51 AM EDT documented in this encounter Results * Free Cell DNA (Non-[facility] Send Out) (11/13/2024 11:51 AM EDT) us Not In System Ref Prov LAB BLOOD ORDERABLES Inga l Result MANUALLY TRANSCRIBED RESULTS documented in this encounter Visit Diagnoses Not on filedocumented in this encounter Care Teams Ambulatory Services Representative Relationship Specialty Start Date End Date Belén Rooney MD [address] [place] [phone] PCP - General Family Medicine 09/29/18 documented as of this encounter
--- OUTSIDE RECORDS SUMMARY | 2024-12-24 10:03 | XMS_ITS | Patient Health Record ---
Author Organization [facility] [place] Address [address] [place] [address] Care Team Providers Care Successfactors Consultant Name Role Phone Harsh Laguna Primary Care Provider Allergies No Known Allergies Results Component Value Reference Range Notes CBC AUTO DIFF Reviewed date:08/13/2024 04:12:48 PM Interpretation: Performing Lab: Notes/Report: [facility] , White Blood Count 5.9 4.0-11.0 10 [...] 0.00-0.03 10 3/uL Performing Lab: see note ML - [facility] LB DRUG SCREEN RAPID (URINE) Reviewed date:08/13/2024 04:12:48 PM Interpretation: Performing Lab: Notes/Report: [facility] , Cannabinoid Screen Urine NEGATIVE NEGATIVE Phencyclidine [...] ng/mL Performing Lab: see note ML - [facility] LB CBC AUTO DIFF Reviewed date:11/24/2024 06:33:39 PM Interpretation: Performing Lab: Notes/Report: [facility] , White Blood Count 10.0 4.0-11.0 10 3/uL Red Blood Count 3.67 4.20-5.40 10 6/uL Hemoglobin 10.8 12.0-16.0 g/dL Hematocrit 32.1 36.0-48.0 % Mean Corpuscular Volume 87.5 81.0-99.0 fL Mean Corpuscular Hemoglobin 29.4 26.7-34.0 pg Mean Corpuscular HGB Conc 33.6 29.9-35.2 g/dL Red Cell Distribution Width 13.3 11.0-15.0 % Platelet Count 231 150-450 10 3/uL Mean Platelet Volume 9.3 9.5-13.5 fL Neutrophils Percent Auto 83.0 43.0-75.0 % Lymphocytes Percent Auto 10.4 20.5-60.0 % Monocytes Percent Auto 5.5 1.7-12.0 % Eosinophils Percent Auto 0.4 0.9-7.0 % Basophils Percent Auto 0.1 0.2-2.0 % Immature Granulocytes Pct Auto 0.6 0.0-0.5 % Neutrophils Absolute Auto 8.3 1.4-6.5 10 3/uL Lymphocytes Absolute Auto 1.0 1.2-3.8 10 3/uL Monocytes Absolute Auto 0.6 0.3-0.8 10 3/uL Eosinophils Absolute Auto 0.0 0.0-0.7 10 3/uL Basophils Absolute Auto 0.0 0.0-0.1 10 3/uL Immature Granulocytes Abs Auto 0.06 0.00-0.03 10 3/uL Performing Lab: see note ML - [facility] LB Glucose 1 Hour Reviewed date:11/24/2024 06:33:39 PM Interpretation: Performing Lab: Notes/Report: [facility] , Glucose 1 Hour 165 <130 mg/dL Performing Lab: see note ML - [facility] LB IGP,Aptima HPV,Age Gdln Reviewed date:09/27/2024 07:57:34 PM Interpretation: Performing Lab: Notes/Report: SPATULA-ALONE CERVIX [facility] , Age Gdln ACOG Testing Note . TESTS RESULT FLAG UNITS REF RANGE LAB Clinician Provided Cytology Information Source.............Cerv ix Other..............Preg nant No. of containers..01 ThinPrep Vial Age Algo ACOG Jill... -23 06 FLAG LEGEND: L-Low Normal,H-High Normal,LL-Alert Low,HH-Alert High <-Panic Low,>-Panic High,A-Abnormal,AA-Crit ical Abnormal Performed at: 01 [facility] [address] [place] [address] Yuni Barakat MD, IGP, rfx Aptima HPV ASCU Note . TESTS RESULT FLAG UNITS REF RANGE LAB DIAGNOSIS: 02 NEGATIVE FOR INTRAEPITHELIAL LESION OR MALIGNANCY. Specimen adequacy: 02 Satisfactory for evaluation. No endocervical component is identified. An endocervical component is not commonly seen in the patient. Performed by: Mateus Fitzgerald, Concrete Pump Operator (ASC) . 02 Note: Note 02 The [...] L-Low Normal,H-High Normal,LL-Alert Low,HH-Alert High <-Panic Low,>-Panic High,A-Abnormal,AA-Crit ical Abnormal Performed at: [address] [address] Yuni Barakat MD, Performed at: =[address] [id number] Rehabilitation Director: Yuni Barakat MD, Phone: [phone] Performed at: [address] [id number] Rehabilitation Director: Yuni Barakat MD, Phone: [phone] Performing Lab: see note [facility] LB Urine Culture, Routine Reviewed date:08/15/2024 09:38:56 AM Interpretation: Performing Lab: Notes/Report: [facility] , Urine Culture, Routine See Below For Report Urine Culture, Routine Urine Culture, Routine No growth Urine Culture, Routine Urine Culture, Routine Performed at: [facility] Urine Culture, Routine Urine Culture, Routine [address] [place] [phone] Urine Culture, Routine Urine Culture, Routine Rehabilitation Director: Reuben Oviedo PhD, Phone: [phone] Urine Culture, Routine Performing Lab: see note [facility] SEE [facility]PORT - Freezer Machine Operator Id information not found for OBX-specific music video producer legend HBsAg Screen Reviewed date:08/14/2024 12:25:02 PM Interpretation: Performing Lab: Notes/Report: [facility] , HBsAg Screen Negative Negative Performed at: [address] [id number] Rehabilitation Director: Gen Oviedo PhD, Phone: [phone] Performing Lab: see note [facility] HCV Antibody RFX to Quant PC R Reviewed date:08/14/2024 11:30:48 AM Interpretation: Performing Lab: Notes/Report: [facility] , HCV Ab Non Reactive Non Reactive Interpretation: Comment . Not infected with HCV unless early or acute infection is suspected (which may be delayed in an immunocompromised individual), or other evidence exists to indicate HCV infection. Performing Lab: see note - [facility] LB [...] utilized, such as Treponema pallidum (Syphilis) Screening [place] (190194) or Rapid Plasma Reagin (RPR) Test With Reflex to Quantitative RPR and Confirmatory Treponema pallidum Antibodies (673981). Performed at: [address] [id number] Rehabilitation Director: Gen Oviedo PhD, Phone: [phone] Performing Lab: see note [facility] HIV Ab/p24 Ag with Reflex Reviewed date:08/14/2024 11:30:48 AM Interpretation: Performing Lab: Notes/Report: [facility] , HIV Ab/p24 Ag Screen Non Reactive Non Reactive HIV-1/HIV-2 antibodies and HIV-1 p24 antigen were NOT detected. There is no laboratory evidence of HIV infection. HIV Negative Performed at: [address] [id number] Rehabilitation Director: Gen Oviedo PhD, Phone: [phone] Performing Lab: see note [facility] Type and Screen Reviewed date:08/13/2024 04:12:48 PM Interpretation: Performing Lab: Notes/Report: [facility] , Blood Type A Positive Antibody Screen NEGATIVE RUBELLA AB IGG Reviewed date:08/14/2024 11:30:48 AM Interpretation: Performing Lab: Notes/Report: [facility] , Rubella Antibodies, IgG <0.90 Immune > 0.99 index Non-immune <0.90 Equivocal 0.90 - 0.99 Immune >0.99 Performed at: [address], [place], [place] [id number] Rehabilitation Director: Gen Oviedo PhD, Phone: [phone] Performing Lab: see note LC - [facility] LB GLYCOHEMOGLOBIN A1C Reviewed date:08/13/2024 04:12:48 PM Interpretation: Performing Lab: Notes/Report: [facility] , Glycohemoglobin A1C 5.4 4.5-6.2 % ADA RECOMMENDED LIMIT 4.0 - 6.0 ADA THERAPEUTIC TARGET < 7.0 ACTION SUGGESTED > 7.0 Estimated Average Glucose 108 Performing Lab: see note ML - [facility] LB IGP,Aptima HPV,Age Gdln Reviewed date:02/29/2024 10:30:54 AM Interpretation: Performing Lab: Notes/Report: BRUSH-SPATULA CERVIX ENDOCERVIX [facility] , Age Gdln ACOG Testing Note . TESTS RESULT FLAG UNITS REF RANGE LAB Clinician Provided Cytology Information Source.............Cerv ix;Endocervix No. of containers..01 ThinPrep Vial Age Algo ACOG Jill... -23 06 FLAG LEGEND: L-Low Normal,H-High Normal,LL-Alert Low,HH-Alert High <-Panic Low,>-Panic High,A-Abnormal,AA-Crit ical Abnormal Performed at: 01 =G [facility] [address] Yuni Barakat MD, IGP, rfx Aptima HPV ASCU Note . TESTS RESULT FLAG UNITS REF RANGE LAB DIAGNOSIS: 02 NEGATIVE FOR INTRAEPITHELIAL LESION OR MALIGNANCY. Specimen adequacy: 02 Satisfactory for evaluation. Endocervical and/or squamous metaplastic cells (endocervical component) are present. Performed by: 02 Zak Coyle, Lip Cutter And Scorer ([facility]) . 02 Note: Note 02 The [...] L-Low Normal,H-High Normal,LL-Alert Low,HH-Alert High <-Panic Low,>-Panic High,A-Abnormal,AA-Crit ical Abnormal Performed at: [facility] [address] [place] [address] Yuni Barakat MD, Performed at: = - [facility] [id number] Rehabilitation Director: Yuni Barakat MD, Phone: [phone] Performed at: [facility] [place] [id number] Rehabilitation Director: Yuni Barakat MD, Phone: [phone] Performing Lab: see note - [facility] LB US OB BPP w non-stress Reviewed date:12/21/2024 03:07:55 PM Interpretation: Performing Lab: Notes/Report: Source Facility: [place] [address] Ultrasound Report Signed Patient: MINNIE BUNCH MR#: [id number] : 1995 Acct:[id number] Age/Sex: 29 / F ADM Date: 12/21/24 Loc: US Attending Dr: Vic Eugene D.O. Ordering Physician: Vic Eugene D.O. Date of Service: 12/21/24 Procedure(s): US OB BPP w non-stress Accession Number(s): [id number] cc: Vic Eugene D.O.; Marlon Laguna M.D. [place] [address] Patient Name: MINNIE BUNCH MRN: [facility]:[id number] date: 1995 Sex: F Assigned Patient Location: Current Patient Location: Accession/Order Number: [id number] Exam Date: 12/21/2024 14:56 Report Date: 12/21/2024 15:00 At the request of: VIC EUGENE DO Procedure: US OB BPP w non-stress Biophysical profile. Reason for exam: No chorionic diamniotic twin gestation. COMPARISON: None TECHNIQUE: Transabdominal imaging of the gravid uterus was obtained. FINDINGS: The geometry tutor reports a fetus A BPP of 6 out of 8 with 0 points for breathing.. MVP is 6.3 cm. heart rate 135 bpm. The geometry tutor reports fetus B BPP of 8 out of 8. MVP is 3.7 cm. heart rate 139 bpm. US/US OB BPP w non-stress IMPRESSION: BPP 6out of 8 for Fetus A. Correlation with NST is recommended. BPP 8 out of 8 for fetus B. Impression dictated by: Barrington Spears Jr., D.O. 12/21/2024 3:00 PM Dictation Location: [place] [address] Electronically authenticated by: [id number] Y Date: 12/21/2024 15:00 Dictated By: Barrington Spears M.D. Signed By: 12/21/24 1502 DD/ 1500 TD/TT: Artificial Log Machine Operator: [place] [address] Ultrasound Report Signed Patient: MINNIE BUNCH MR#: [id number] : 1995 Acct:[id number] Age/Sex: 29 / F ADM Date: 12/21/24 Loc: US Attending Dr: Vic Eugene D.O. Ordering Physician: Vic Eugene D.O. Date of Service: 12/21/24 Procedure(s): US OB BPP w non-stress Accession Number(s): [id number] cc: Vic Eugene D.O. ; Marlon Laguna M.D. [place] [id number] Patient Name: MINNIE BUNCH MRN: [id number] date: 1995 Sex: F Assigned Patient Location: US Current Patient Location: Accession/Order Number: [id number] Exam Date: 12/21/2024 14:56 Report Date: 12/21/2024 15:00 At the request of: VIC EUGENE DO Procedure: US OB fet al BPP w non-stress Biophysical profile. Reason for exam: No chorionic diamniotic twin gestation. COMPARISON: None TECHNIQUE: Transabdominal imaging of the gravid uterus was obtained. FINDINGS: The geometry tutor reports a fetus A BPP of 6 out of 8 with 0 points for breathing. . MVP is 6.3 cm. heart rate 135 bpm. The geometry tutor reports fetus B BPP of 8 out of 8. MVP is 3.7 cm. heart rate 139 bpm. US/US OB BPP w non-stress IMPRESSION: BPP 6out of 8 for Fetus A. Correlation with NST is recommended. BPP 8 out of 8 for fetus B. Impression dictated by: Barrington Spears Jr., D.O. 12/21/2024 3:00 PM Dictation Location: [place] [address] Electronically authenticated by: [id number] Y Date: 12/21/2024 15:00 Dictated By: Barrington Spears M.D. Signed By: 12/21/24 1502 DD/ 1500 TD/TT: Artificial Log Machine Operator: US OB BPP w non-stress Reviewed date:12/21/2024 03:07:55 PM Interpretation: Performing Lab: Notes/Report: Source Facility: [place] [address] Ultrasound Report Signed Patient: MINNIE BUNCH MR#: [id number] : 1995 Acct:[id number] Age/Sex: 29 / F ADM Date: 12/21/24 Loc: US Attending Dr: Vic Eugene D.O. Ordering Physician: Vic Eugene D.O. Date of Service: 12/21/24 Procedure(s): US OB BPP w non-stress Accession Number(s): [id number] cc: Vic Eugene D.O.; Marlon Laguna M.D. [place] [address] Patient Name: MINNIE BUNCH MRN: [id number] date: 1995 Sex: F Assigned Patient Location: US Current Patient Location: Accession/Order Number: [id number] Exam Date: 12/21/2024 14:56 Report Date: 12/21/2024 15:00 At the request of: VIC EUGENE DO Procedure: US OB BPP w non-stress Biophysical profile. Reason for exam: No chorionic diamniotic twin gestation. COMPARISON: None TECHNIQUE: Transabdominal imaging of the gravid uterus was obtained. FINDINGS: The geometry tutor reports a fetus A BPP of 6 out of 8 with 0 points for breathing.. MVP is 6.3 cm. heart rate 135 bpm. The geometry tutor reports fetus B BPP of 8 out of 8. MVP is 3.7 cm. heart rate 139 bpm. US/US OB BPP w non-stress IMPRESSION: BPP 6out of 8 for Fetus A. Correlation with NST is recommended. BPP 8 out of 8 for fetus B. Impression dictated by: Barrington Spears Jr., D.O. 12/21/2024 3:00 PM Dictation Location: [place] [address] Electronically authenticated by: [id number] Y Date: 12/21/2024 15:00 Dictated By: Barrington Spears M.D. Signed By: 12/21/24 1502 DD/ 1500 TD/TT: Artificial Log Machine Operator: [place] [address] Ultrasound Report Signed Patient: MINNIE BUNCH MR#: [id number] : 1995 Acct:[id number] Age/Sex: 29 / F ADM Date: 12/21/24 Loc: US Attending Dr: Vic Eugene D.O. Ordering Physician: Vic Eugene D.O. Date of Service: 12/21/24 Procedure(s): US OB BPP w non-stress Accession Number(s): [id number] cc: Vic Eugene D.O. ; Marlon Laguna M.D. [place] [id number] Patient Name: MINNIE BUNCH MRN: [id number] date: 1995 Sex: F Assigned Patient Location: US Current Patient Location: Accession/Order Number: [id number] Exam Date: 12/21/2024 14:56 Report Date: 12/21/2024 15:00 At the request of: VIC EUGENE DO Procedure: US OB fet al BPP w non-stress Biophysical profile. Reason for exam: No chorionic diamniotic twin gestation. COMPARISON: None TECHNIQUE: Transabdominal imaging of the gravid uterus was obtained. FINDINGS: The geometry tutor reports a fetus A BPP of 6 out of 8 with 0 points for breathing. . MVP is 6.3 cm. heart rate 135 bpm. The geometry tutor reports fetus B BPP of 8 out of 8. MVP is 3.7 cm. heart rate 139 bpm. US/US OB BPP w non-stress IMPRESSION: BPP 6out of 8 for Fetus A. Correlation with NST is recommended. BPP 8 out of 8 for fetus B. Impression dictated by: Barrington Spears Jr., D.ORodri 12/21/2024 3:00 PM Dictation Location: [employer] Electronically authenticated by: [id number] Y Date: 12/21/2024 15:00 Dictated By: Barrington Separs M.D. Signed By: 12/21/24 1502 DD/ 1500 TD/TT: Artificial Log Machine Operator: Reason For Referral No Information Medications Medication SIG (Take, Route, Frequency, Duration) Notes Start Date End Date Status Imitrex 100 MG 1 tablet at least 2 hours between doses as needed Orally Twice a day 04/09/2024 Active Flonase Allergy Relief 50 MCG/ACT 1 spray in each nostril Nasally Once a day for 60 Active Vitamin D 50 MCG (1999 UT) [...] Problem Status W/U Status Risk Notes Problem 53717909 Other chronic pain (G89.29) Active confirmed Problem 82593506 Anxiety (F41.9) Active confirmed Problem Palpitations (03506264) Palpitation (R00.2) Active confirmed Problem Migraine (81682400) Migraine (G43.909) Active confirmed Problem 126079272 Hypoglycemia (E16.2) Active confirmed Problem Seasonal allergy (510083886) Seasonal allergies (J30.2) Active confirmed Problem 06064180 Left-sided face pain (R51) Active confirmed Problem 74526161189895981 Trigeminal neuralgia of left side of face (G50.0) Active confirmed Vital Signs Blood pressure diastolic 78 mm Hg 04/09/2024 Height 62.5 in 04/09/2024 Blood pressure systolic 126 mm Hg 04/09/2024 Weight 143.8 lbs 04/09/2024 BMI 25.88 kg/m2 04/09/2024 Encounters Encounter Location Date Provider Diagnosis [facility] [address] [place] [address] 04/09/2024 Harsh Hoy Migraine G43.909 Assessments Encounter Date Diagnosis (ICD Code) Assessment Notes Treatment Notes Treatment Clinical Notes Section Notes 04/09/2024 Migraine (ICD-10 - G43.909) Plan Of Treatment Pending Test Test Name Order Date CMP (COMPLETE METABOLIC PANEL) HEMOGLOBIN A1C (GLYCO) 03/19/2023 IRON, TOTAL 03/19/2023 CBC WITH DIFF 03/19/2023 IGE 10/10/2022 IGG 10/10/2022 IGA 10/10/2022 IGM 10/10/2022 ANTISTREPTOLYSIN O AB (ASO) 03/19/2023 CBC AUTO DIFF 03/22/2023 FERRITIN 03/22/2023 IRON 03/22/2023 SED RATE WESTERGREN 03/19/2023 MRI BRAIN WO CON 04/09/2024 THYROID PANEL (T4/TSH/FREE T3) ECHOCARDIO M/2D COMPLETE 03/19/2023 Holter Monitor - 3 days up to 14 days Insurance Providers Payer Name Payer Address Payer Phone Subscriber Number Group Number Insured Name Patient Relationship to Insured Coverage Start Date Coverage End Date [facility] [address] [place] [phone] [id number] Binta Bunch Spouse - patient is the spouse of the insured Medical (General) History Medical History History ICD Code Abdominal migraines Anxiety Trigeminal neuralgia Surgical History Surgery Date(Month/Year) wisdom teeth Appendectomy 08/08/2018 Hospitalization History Reason Date(Month/Year) See above
--- OUTSIDE RECORDS SUMMARY | 2024-12-24 10:03 | XMS_ITS | Encounter Summary ---
Author Organization [facility] Address [address] [place] [address] Care Team Providers Care Hatchery Worker Name Role Phone Marlon Laguna MD Primary Care Provider [phone] Vic Eugene DO Unavailable Encounter Details Date Type Department Care Team (Late st Contact Info) Description 12/21/2024 Clinisync Result Encounter [facility] Unsolicited Vic Eugene, [address] [place], [place] [phone] Social History Tobacco Use Types Packs/Day Years [...] 12/30/2024 11:30 AM EDT Routine [facility] [place] [facility] [address] [place] [address] Vic Eugene, DO [address] [facility] [place] [address] 03/28/2025 2:00 PM EST Office Visit [facility] [place] [facility] [address] [facility] [place] [phone] Vic Eugene, DO [address] [facility] [place] [address] documented as of this encounter Goals Goal Patient Goal Type Associated Problems Recent Progress Patient-Stated? Author Reminders Care Plan OB Reminders No Open Scheduling, Background documented as of this encounter Procedures Procedure Name Priority Date/Time Associated Diagnosis Comments US OB BPP W NON-STRESS 12/21/2024 3:00 PM EDT documented in this encounter Results * US OB BPP W NON-STRESS (12/21/2024 3:00 PM EDT) Anatomical Region Laterality Modality Other 12/21/2024 3:00 PM EDT Narrative 12/21/2024 3:02 PM EDT The [address] [address] Ultrasound Report Signed Patient: MINNIE BUNCH MR#: [id number] : 1995 Acct:[id number] Age/Sex: 29 / F ADM Date: 12/21/24 Loc: US Attending Dr: Vic Eugene D.O. Ordering Physician: Vic Eugene D.O. Date of Service: 12/21/24 Procedure(s): US OB BPP w non-stress Accession Number(s): [id number] cc: Vic Eugene D.O.; Marlon Laguna M.D. The [address] [address] Patient Name: MINNIE BUNCH MRN: [id number] date: 1995 Sex: F Assigned Patient Location: US Current Patient Location: Accession/Order Number: [id number] Exam Date: 12/21/2024 14:56 Report Date: 12/21/2024 15:00 At the request of: VIC EUGENE DO Procedure: US OB BPP w non-stress Biophysical profile. Reason for exam: No chorionic diamniotic twin gestation. COMPARISON: None TECHNIQUE: Transabdominal imaging of the gravid uterus was obtained. FINDINGS: The sports medicine physician reports a fetus A BPP of 6 out of 8 with 0 points for breathing.. MVP is 6.3 cm. heart rate 135 bpm. The sports medicine physician reports fetus B BPP of 8 out of 8. MVP is 3.7 cm. heart rate 139 bpm. US/US OB BPP w non-stress IMPRESSION: BPP 6out of 8 for Fetus A. Correlation with NST is recommended. BPP 8 out of 8 for fetus B. Impression dictated by: Barrington Spears Jr., D.O. 12/21/2024 3:00 PM Dictation Location: [place] [address] Electronically authenticated by: [id number] Y Date: 12/21/2024 15:00 Dictated By: Barrington Spears M.D. Signed By: 12/21/24 1502 DD/ 1500 TD/TT: [employer] Freight Car Cleaner: Procedure Note Radiology, Radiologist, MD - 12/21/2024 [place] [address] Ultrasound Report Signed Patient: MINNIE BUNCH [facility]#: [id number] : 1995Acct:[id number] Age/Sex: Date: 12/21/24 Loc: US Attending Dr: Vic Eugene D.O. Ordering Physician: Vic Eugene D.O. Date of Service: 12/21/24 Procedure(s): US OB BPP w non-stress Accession Number(s): [id number] cc: Vic Eugene D.O.; Marlon Laguna M.D. The [place] [id number] Patient Name: MINNIE BUNCH MRN: [id number] date: 1995 Sex: F Assigned Patient Location: Current Patient Location: Accession/Order Number: [id number] Exam Date: 12/21/2024 14:56 Report Date: 12/21/2024 15:00 At the request of: VIC EUGENE DO Procedure: US OB BPP w non-stress Biophysical profile. Reason for exam: No chorionic diamniotic twin gestation. COMPARISON: None TECHNIQUE: Transabdominal imaging of the gravid uterus was obtained. FINDINGS: The sports medicine physician reports a fetus A BPP of 6 out of 8 with 0points for breathing.. MVP is 6.3 cm. heart rate 135 bpm. The sports medicine physician reports fetus B BPP of 8 out of 8. MVP is 3.7 cm. heart rate 139 bpm. US/US OB BPP w non-stress IMPRESSION: BPP 6out of 8 for Fetus A. Correlation with NST is recommended. BPP 8 out of 8 for fetus B. Impression dictated by: Barrington Spears Jr., D.O. 12/21/2024 3:00 PM Dictation Location: [place] [address] Electronically authenticated by: [id number] Y Date: 5:00 Dictated By: Barrington Spears M.D. Signed By:12/21/24 1502 DD/ 1500 TD/TT: [employer] Freight Car Cleaner: Vic Eugene DO [facility] Final Result documented in this encounter Visit Diagnoses Not on filedocumented in this encounter Additional Health Concerns Active Problems Noted Date Diagnosed Date OB Reminders 08/14/2024 documented as of this encounter Care Teams Hatchery Worker Relationship Specialty Start Date End Date Marlon Laguna MD [address] [facility] [place] [address] PCP - General Family Medicine 08/29/23 Vic Eugene DO [address] [place] [address] [place] [address] Referring Physician Obstetrics and Gynecology 08/16/24 documented as of this encounter
--- OUTSIDE RECORDS SUMMARY | 2024-12-24 10:03 | XMS_ITS | Encounter Summary ---
Author Organization [facility] Address [address] [place] [address] Care Team Providers Care Foxing Cutting Machine Operator Name Role Phone Marlon Laguna MD Primary Care Provider [phone] Saul Eugene DO Unavailable Encounter Details Date Type Department Care Team (Late st Contact Info) Description 12/14/2024 Bamboo flowsheet [facility] [address] [facility] [place] [address] Saul Eugene DO [address] [place], [facility] Social History Tobacco Use Types Packs/Day Years [...] AM EDT Routine [facility] [place] [facility] [address] [place] [address] Saul Eugene DO [address] [facility] [place] [address] 03/28/2025 2:00 PM EST Office Visit [facility] [place] [facility] [address] [place] [address] Saul Eugene DO [address] [facility] [place] [address] documented as of this encounter Goals Goal Patient Goal Type Associated Problems Recent Progress Patient-Stated? Author Reminders Care Plan OB Reminders No Open Scheduling, Background documented as of this encounter Visit Diagnoses Not on filedocumented in this encounter Additional Health Concerns Active Problems Noted Date Diagnosed Date OB Reminders 08/14/2024 documented as of this encounter Care Teams Foxing Cutting Machine Operator Relationship Specialty Start Date End Date Marlon Laguna MD [address] [facility] [place] [address] PCP - General Family Medicine 08/29/23 Saul Eugene DO [address] [facility] [place] [address] Referring Physician Obstetrics and Gynecology 08/16/24 documented as of this encounter
--- OUTSIDE RECORDS SUMMARY | 2024-12-24 10:03 | XMS_ITS | Encounter Summary ---
Author Organization [facility] Address [address] [place] [address] Care Team Providers Care Refining Machine Operator Name Role Phone Marlon Laguna MD Primary Care Provider [phone] Saul Eugene DO Unavailable Encounter Details Date Type Department Care Team (Late st Contact Info) Description 11/03/2023 Clinisync Result Encounter [facility] Unsolicited Saul Eugene DO [address] [place], [place] [phone] Social History Tobacco Use Types Packs/Day Years [...] AM EDT Routine [facility] [address] [place] [phone] Saul Eugene DO [address] [place] [address] 03/28/2025 2:00 PM EST Office Visit [facility] [address] [place] [phone] Saul Eugene DO [address] [place] [address] documented as of this encounter Procedures Procedure Name Priority Date/Time Associated Diagnosis Comments MM TOMOSYNTHESIS DIAGNOSTIC BI 11/03/2023 1:17 PM EDT documented in this encounter Results * MM TOMOSYNTHESIS DIAGNOSTIC BI (11/03/2023 1:17 PM EDT) Anatomical Region Laterality Modality Other 11/03/2023 1:17 PM EDT Narrative 11/03/2023 1:18 PM EDT The [address] [address] Mammography Report Signed Patient: MINNIE SWIFT MR#: [id number] : 1995 Acct:[id number] Age/Sex: 28 / F ADM Date: 11/03/23 Loc: MAMMO Attending Dr: Saul Eugene D.O. Ordering Physician: Saul Eugene D.O. Results: Date of Service: 11/03/23 Follow Up: Procedure(s): MM tomosynthesis diagnostic BI Accession Number(s): [id number] cc: Saul Eugene D.O.; Marlon Laguna M.D. Patient Name: MINNIE SWIFT MR#: [id number] : 1995 Exam Date: 11/03/2023 Ordering Doctor: [...] Treatments None Family Cancers None LOCATION: [facility] BREAST COMPOSITION: There are scattered areas of fibroglandular density. FINDINGS: DIAGNOSTIC CATEGORY 1--NEGATIVE. Scattered benign-appearing lymph nodes are present. RIGHT BREAST: No significant suspicious finding. [place] marker upper outer quadrant, anterior breast corresponding [...] Fitzgerald M.D. Signed By: 11/03/23 1318 DD/ 1317 TD/TT: Skidder Driver: Procedure Note Radiology, Radiologist, MD - 11/03/2023 [place] [address] Mammography Report Signed Patient: MINNIE SWIFT AMR#: [id number] : 1995Acct:[id number] Age/Sex: Date: 11/03/23 Loc: MAMMO Attending Dr: Saul Eugene D.O. Ordering Physician: Saul Eugene D.O.Results: Date of Service: 11/03/23Follow Up: Procedure(s): MM tomosynthesis diagnostic BI Accession Number(s): [id number] cc: Saul Eugene D.O.; Marlon Laguna M.D. Patient Name: MINNIE SWIFT MR#: [id number] : 1995 Exam Date: 11/03/2023 Ordering Doctor: [...] Treatments None Family Cancers None LOCATION: [facility] BREAST COMPOSITION: There are scattered areas of fibroglandulardensity. FINDINGS: DIAGNOSTIC CATEGORY 1--NEGATIVE. Scattered benign-appearing lymph nodes are present. RIGHT BREAST: No significant suspicious finding. [place] marker upperouter quadrant, anterior breast corresponding to [...] Fitzgerald M.D. Signed By:11/03/23 1318 DD/ TD/TT: Skidder Driver: Saul Eugene DO [facility] Final Result documented in this encounter Visit Diagnoses Not on filedocumented in this encounter Care Teams Refining Machine Operator Relationship Specialty Start Date End Date Marlon Laguna MD [address] [place] [phone] PCP - General Family Medicine 08/29/23 Saul Eugene DO [address] [place] [address] [place] [address] Referring Physician Obstetrics and Gynecology 08/16/24 documented as of this encounter
--- OUTSIDE RECORDS SUMMARY | 2024-12-24 10:03 | XMS_ITS | Clinical Summary ---
Author Organization [facility] Address [address] [place] [address] Care Team Providers Care Electrical Mechanic Name Role Phone Marlon Laguna MD Primary Care Provider [phone] Vic Eugene DO Unavailable Allergies No known active allergies Medications Vit-Fe Fumarate-FA ( Vitamins) 28-0.8 MG tabletIndications: Well woman exam with routine gynecological exam Take [...] mg by mouth in the morning. Active Lancets Ultra Thin miscIndications:Ge stational diabetes mellitus (GDM), antepartum, gestational diabetes method of control unspecified (HHS-HCC),Elevated glucose tolerance test 1 each by In Vitro route Daily Use to check FSBS four times daily 150 each 3 5 12/25/19 25 Active Alcohol Swabs (Alcohol Prep Pad) 70 % padsIndications:Ge stational diabetes mellitus (GDM), antepartum, gestational diabetes method of control unspecified (HHS-HCC),Elevated glucose tolerance test Apply 1 Pad topically Daily Use four times daily to check FSBS. 150 each 3 5 Active Glucose Blood (Blood Glucose Test) stripIndications:G estational diabetes mellitus (GDM), antepartum, gestational diabetes method of control unspecified ([facility]),Elevated glucose tolerance test 1 strip by In Vitro route Daily Use in the morning prior to breakfast, 1 hour after each meal for a total of 4times daily. 150 strip 3 5 12/25/19 25 Active Blood Glucose Monitoring Suppl (D-Care Glucometer) w/Device kitIndications:Ges tational diabetes mellitus (GDM), antepartum, gestational diabetes method of control unspecified ([facility]),Elevated glucose tolerance test 1 kit Daily Use four times daily to check FSBS. In the morning prior to breakfast & 1 hour after each meal for a total of 4times daily. 1 kit 5 11/25/19 26 Active Encounters Date Type Department Care Team Description 12/23/2024 Travel 12/21/2024 Clinisync Result Encounter [facility] External Department Unsolicited Vic Eugene, DO 12/21/2024 Clinisync Result Encounter [facility]OM[facility] External Department Unsolicited Vic Eugene, DO 12/14/2024 1:50 [place] [address] Vic Eugene, DO Second trimester ([facility]); 27 weeks gestation of ([facility]); Monochorionic diamniotic twin gestation in second trimester ([facility]) 12/14/20[place] [address] Vic Eugene, DO 12/14/2024 [place] [address] Vic Eugene, DO 12/07/2024 Travel 12/06/2024 [place] [address] Vic Eugene, DO 12/01/2024 [place] [address] Ximena Aly MA 11/30/2024 1:00 PM EDT Routine [facility] [place] [facility] [address] [place] [address] Vic Eugene, DO Second trimester ([facility]); 25 weeks gestation of ([facility]); Monochorionic diamniotic twin gestation in second trimester ([facility]) 11/30/2024 Bamboo flowsheet [facility] [address] [place] [address] Vic Eugene, DO 11/24/2024 Abstract [facility] [facility] [address] [place] [address] Vic Eugene, DO 11/24/2024 Telephone [facility] [place] [facility] [address] [place] [phone] Vic Eugene, DO 11/24/2024 Clinisync Result Encounter [facility] External Department Unsolicited Vic Eugene, DO 11/23/2024 Travel 11/22/2024 Abstract [facility] [address] [place] [address] Vic Eugene, DO 11/22/2024 Abstract [facility] [facility] [address] [place] [address] Vic Eugene, DO 11/16/2024 2:20 PM EDT Routine [facility] [place] [facility] [address] [place] [address] Vic Eugene, DO Second trimester ([facility]); 23 weeks gestation of ([facility]); Diabetes mellitus screening; Monochorionic diamniotic twin gestation in second trimester ([facility]) 11/16/2024 Bamboo flowsheet [facility] [place] [facility] [address] [place] [address] Vic Eugene, DO 11/09/2024 Travel 11/02/2024 Abstract [facility] [address] [place] [address] Ximena Aly, [place] 10/27/2024 Abstract [facility] [facility] [address] [place] [address] Vic Eugnee, DO 10/20/2024 3:50 PM EDT Routine [facility] [facility] [address] [place] [address] Vic Eugene, DO 19 weeks gestation of ([facility]); Second trimester ([facility]) 10/20/2024 Bamboo flowsheet [facility] [facility] [address] [place] [address] Vic Eugene, DO 10/13/2024 Travel 10/12/2024 Abstract [facility] [facility] [address] [place] [address] Vic Eugene, DO 10/11/2024 Abstract [facility] [facility] [address] [place] [address] Vic Eugene, DO 10/01/2024 Orders Only [facility] [place] [facility] [address] [place] [address] Ximena Aly, [place] 09/28/2024 Abstract [facility] [facility] [address] [place] [address] Vic Eugene, DO 09/27/2024 Abstract [facility] [place] [facility] [address] [place] [address] Vic Eugene, DO 09/24/2024 Telephone [facility] [address] [place] [address] [phone] Vic Eugene DO 09/23/2024 11:10 AM EDT [place] [address] Vic Eugene DO 15 weeks gestation of ([facility]); Second trimester ([facility]); Well woman exam with routine gynecological exam; Exposure to STD; Vaginal discharge; Monochorionic diamniotic twin gestation in second trimester ([facility]) 09/23/2024 Clinisync Result Encounter [facility]OMS External Department Unsolicited Vic Eugene, 09/23/2024 External Result Encounter [facility]OM[facility] External Department Unsolicited Vic Eugene, 09/23/2024 Bamboo flowsheet [facility] [address] [place] [address] Vic Eugene DO from Last 3 Months Family History Medical [...] 8 oz) 12/14/2024 1:57 PM EDT Height 157.5 cm (5' 2 ) 02/10/2023 11:39 AM EDT Body Mass Index 27.71 02/10/2023 11:39 AM EDT Plan of Treatment Upcoming Encounters Date Type Department Care Team (Late st Contact Info) Description 12/30/2024 11:30 AM EDT Routine [facility] [address] [place] [address] Vic Eugene, DO [address] [place] [address] 03/28/2025 2:00 PM EST Office Visit [facility] [address] [place] [phone] Vic Eugene, DO [address] [place], [place] [phone] Goals Goal Patient Goal Type Associated Problems Recent Progress Patient-Stated? Author Reminders Care Plan OB Reminders No Open Scheduling, Background Procedures Procedure Name Priority Date/Time Associated Diagnosis Comments US OB BPP W NON-STRESS 12/21/2024 3:00 PM EDT US OB BPP W NON-STRESS 12/21/2024 3:00 PM EDT POCT URINALYSIS DIPSTICK Routine 12/14/2024 2:03 PM EDT Second trimester ([facility]) GLUCOSE 1 HOUR Routine 11/24/2024 1:13 PM EDT ALL CBC WITH AUTO DIFF Routine 11/24/2024 1:13 PM EDT POCT URINALYSIS DIPSTICK Routine 10/20/2024 4:19 PM EDT 19 weeks gestation of ([facility]) Second trimester ([facility]) US OB 14+ WEEKS ANATOMY SCAN 09/27/2024 12:17 PM EDT RECURRENT VAGINITIS (HTRX) Routine 09/23/2024 11:57 AM EDT POCT URINALYSIS DIPSTICK Routine 09/23/2024 11:34 AM EDT 15 weeks gestation of ([facility]) Second trimester ([facility]) IGP,APTIMA HPV,AGE GDLN Routine 09/23/2024 11:12 AM EDT PAP SMEAR Routine 09/23/2024 12:00 AM EDT from Last 3 Months Results * US OB BPP W NON-STRESS (12/21/2024 3:00 PM EDT) Only the most recent of2 resultswithin the time period is included. Anatomical Region Laterality Modality Other 12/21/2024 3:00 PM EDT Narrative 12/21/2024 3:02 [place] [address] Ultrasound Report Signed Patient: MINNIE BUNCH MR#: [id number] : 1995 Acct:[id number] Age/Sex: 29 / F ADM Date: 12/21/24 Loc: US Attending Dr: Vic Eugene D.O. Ordering Physician: Vic Eugene D.O. Date of Service: 12/21/24 Procedure(s): US OB BPP w non-stress Accession Number(s): [id number] cc: Vic Eugene D.O.; Marlon Laguna M.D. [address] [address] Patient Name: MINNIE BUNCH MRN: [id number] date: 1995 Sex: F Assigned Patient Location: US Current Patient Location: Accession/Order Number: [id number] Exam Date: 12/21/2024 14:56 Report Date: 12/21/2024 15:00 At the request of: VIC EUGENE DO Procedure: US OB BPP w non-stress Biophysical profile. Reason for exam: No chorionic diamniotic twin gestation. COMPARISON: None TECHNIQUE: Transabdominal imaging of the gravid uterus was obtained. FINDINGS: The bioprocess engineer reports a fetus A BPP of 6 out of 8 with 0 points for breathing.. MVP is 6.3 cm. heart rate 135 bpm. The bioprocess engineer reports fetus B BPP of 8 out of 8. MVP is 3.7 cm. heart rate 139 bpm. US/US OB BPP w non-stress IMPRESSION: BPP 6out of 8 for Fetus A. Correlation with NST is recommended. BPP 8 out of 8 for fetus B. Impression dictated by: Barrington Spears Jr., D.O. 12/21/2024 3:00 PM Dictation Location: [facility] Electronically authenticated by: [id number] Y Date: 12/21/2024 15:00 Dictated By: Barrington Spears M.D. Signed By: 12/21/24 1502 DD/ 1500 TD/TT: Designer/Writer: Procedure Note Radiology, Radiologist, - 12/21/2024 [place] [address] Ultrasound Report Signed Patient: MINNIE BUNCH AMR#: [id number] : 1995Acct:[id number] Age/Sex: Date: 12/21/24 Loc: US Attending Dr: Vic Eugene D.O. Ordering Physician: Vic Eugene D.O. Date of Service: 12/21/24 Procedure(s): US OB BPP w non-stress Accession Number(s): [id number] cc: Vic Eugene D.O.; Marlon Laguna M.D. [facility] [place] [address] Patient Name: MINNIE BUNCH MRN: [facility]:[id number] date: 1995 Sex: F Assigned Patient Location: Current Patient Location: Accession/Order Number: [id number] Exam Date: 12/21/2024 14:56 Report Date: 12/21/2024 15:00 At the request of: VIC EUGENE DO Procedure: US OB BPP w non-stress Biophysical profile. Reason for exam: No chorionic diamniotic twin gestation. COMPARISON: None TECHNIQUE: Transabdominal imaging of the gravid uterus was obtained. FINDINGS: The bioprocess engineer reports a fetus A BPP of 6 out of 8 with 0points for breathing.. MVP is 6.3 cm. heart rate 135 bpm. The bioprocess engineer reports fetus B BPP of 8 out of 8. MVP is 3.7 cm. heart rate 139 bpm. US/US OB BPP w non-stress IMPRESSION: BPP 6out of 8 for Fetus A. Correlation with NST is recommended. BPP 8 out of 8 for fetus B. Impression dictated by: Barrington Spears Jr., D.O. 12/21/2024 3:00 PM Dictation Location: [place] [address] Electronically authenticated by: [id number] Y Date: 5:00 Dictated By: Barrington Spears M.D. Signed By:12/21/24 1502 DD/ 1500 TD/TT: Designer/Writer: us Vic Eugene DO [facility] Final Result * POCT urinalysis dipstick manually resulted (12/14/2024 2:03 PM EDT) Only the most recent of3 [...] - Positive Urine 12/14/2024 2:03 PM EDT Vic Valorie DO POINT OF CARE TEST ENTER/EDIT OR DERABLES Final Result * (ABNORMAL) GLUCOSE 1 HOUR (11/24/2024 1:13 PM EDT) GLUCOSE 1 HOUR 165(H) <130 mg/dL [facility] 11/24/2024 1:13 PM EDT 11/24/2024 1:34 PM EDT Narrative [facility] - 11/24/2024 1:58 PM EDT Vic Valorie DO LAB BLOOD ORDERABLES Final Resul t [facility] * (ABNORMAL) ALL CBC WITH AUTO DIFF (11/24/2024 1:13 PM EDT) Pathologist [facility] TB WBC 10.0 4.0 - 11.0 10 3/uL [facility] TB RBC 3.67(L) 4.20 - 5.40 10 6/uL [facility] TB HGB 10.8(L) 12.0 - 16.0 g/dL TB TB HCT 32.1(L) 36.0 - 48.0 % TB TB MCV 87.5 81.0 - 99.0 fL TB TB MCH 29.4 26.7 - 34.0 pg TBH TB MCHC 33.6 29.9 - 35.2 g/dL TB TB RDW 13.3 11.0 - 15.0 % TBH TBH PLT 231 150 - 450 10 3/uL TBH TBH MPV 9.3(L) 9.5 - 13.5 fL [facility]H NEUTROPHILS PERCENT AUTO 83.0(H) 43.0 - 75.0 % TBH LYMPHOCYTES PERCENT AUTO 10.4(L) 20.5 - 60.0 % TBH MONOCYTES PERCENT AUTO 5.5 1.7 - 12.0 % TBH TBH EO % 0.4(L) 0.9 - 7.0 % [facility]H BASOPHILS PERCENT AUTO 0.1(L) 0.2 - 2.0 % [facility] IMMATURE GRANULOCYTES PCT AUTO 0.6(H) 0.0 - 0.5 % TBH NEUTROPHILS ABSOLUTE AUTO 8.3(H) 1.4 - 6.5 10 3/uL TBH LYMPHOCYTES ABSOLUTE AUTO 1.0(L) 1.2 - 3.8 10 3/uL TBH MONOCYTES ABSOLUTE AUTO 0.6 0.3 - 0.8 10 3/uL TBH TBH EO # 0.0 0.0 - 0.7 10 3/uL TBH BASOPHILS ABSOLUTE AUTO 0.0 0.0 - 0.1 10 3/uL TB[facility] IMMATURE GRANULOCYTES ABS AUTO 0.06(H) 0.00 - 0.03 10 3/uL [facility] 11/24/2024 1:13 PM EDT 11/24/2024 1:34 PM EDT Narrative [facility] - 11/24/2024 1:39 PM EDT us Vic Eugene DO [facility] Final Result [facility] * US OB 14+ weeks anatomy scan (09/27/2024 12:17 PM EDT) Anatomical Region Laterality Modality Body Ultrasound 09/27/2024 12:1 7 PM EDT Narrative 09/27/2024 12:17 PM EDT THIS EXAM WAS PERFORMED AT [facility] NAME: ALIVIA HARTMAN : 1995 SEX: F Accession Number: [id number] ORDERING PHYSICIAN: VIC EUGENE REFERRING PHYSICIAN: VIC EUGENE Coding ----- --------- Procedures [id number]: Ultrasound, uterus, real time with image documentation, and maternal evaluation, after first trimester (> or = 14 weeks 0 days), transabdominal approach; single or first gestation. 2 Indication ----- --------- Screening for Anatomic Survey, Stafford-Di twin , History ----- --------- OB History 1. Para 0 [id number] Maternal Assessment ----- --------- Physical Exam Height [...] EFW (oz) 4 oz EFW by: Hadlock (BLU-II-FP-FL) Extended Tibia 14.3 mm 15w 0d 17% [...] EFW (oz) 5 oz EFW by: Hadlock (OGW-UY-CN-FL) Extended Tibia 14.7 mm 15w 0d 21% [...] Thorax RVOT view. LVOT view. 3-vessel view. 7-ekzgnr-bvhwrmn view. Diaphragm. Abdomen Kidneys. Right renal artery. [...] Thorax RVOT view. LVOT view. 3-vessel view. 3-ouuorh-jxxecbq view. Aortic arch view. Bicaval view. Ductal [...] 2.2 cm. Recommendations ----- --------- Please see [facility] documentation from today. Subsequent follow up or other follow up as clinically determined by primary OB provider unless otherwise specified by MFM. Results forwarded to ordering provider so they can follow up with the patient as necessary. Procedure Note Radiology, Radiologist, - 09/27/2024 THIS EXAM WAS PERFORMED AT [facility] NAME: ALIVIA HARTMAN : 1995 SEX: F Accession Number: [id number] ORDERING PHYSICIAN: VIC EUGENE REFERRING PHYSICIAN: VIC EUGENE Coding ----- --------- Procedures [id number]: Ultrasound, uterus, real time with imagedocumentation, and maternal evaluation, after first trimester (> or = 14 weeks 0 days), transabdominalapproach; single or first gestation. 2 Indication ----- --------- Screening for Anatomic Survey, Stafford-Di twin , History ----- --------- OB History 1. Para 0 [id number] Maternal Assessment ----- --------- Physical Exam Height [...] EFW (oz) 4 oz EFW by: Hadlock (TLE-KU-CH-FL) Extended Tibia 14.3 mm 15w 0d 17% [...] EFW (oz) 5 oz EFW by: Hadlock (ZSW-JL-CA-FL) Extended Tibia 14.7 mm 15w 0d 21% [...] Thorax RVOT view. LVOT view. 3-vessel view. 9-tlidnu-zixnehvpfqb. Diaphragm. Abdomen Kidneys. Right renal artery. Left [...] Thorax RVOT view. LVOT view. 3-vessel view. 0-cfyajs-pxvswzw view.Aortic arch view. Bicaval view. Ductal arch [...] 2.2 cm. Recommendations ----- --------- Please see [facility] documentation from today. Subsequent follow up or other follow up as clinically determined byprimary OB provider unless otherwise specified by MFM. Results forwarded to ordering provider so they can follow up with thepatient as necessary. us Vic Eugene DO [facility] OB US PROCEDURES Final Resul t * (ABNORMAL) RECURRENT VAGINITIS (HTRX) (09/23/2024 11:57 AM EDT) ATOPOBIUM VAGINAE 0.000 19.961 - 24.689 ppm 09/24/2024 6:03 AM EDT [facility] ATOPOBIUM VAGINAE Not Detected 19.961 - 24.689 ppm 09/24/2024 6:03 AM EDT [facility] BVAB 2,3 (BACTERIAL VAGINOSIS ASSOCIATED BACTERIA 2, 3); MOBILUNCUS SPP 0.000 19.961 - 24.689 ppm 09/24/2024 6:03 AM EDT [facility] BVAB 2,3 (BACTERIAL VAGINOSIS ASSOCIATED BACTERIA 2, 3); MOBILUNCUS SPP Not Detected 19.961 - 24.689 ppm 09/24/2024 6:03 AM EDT [facility] ANDREIA ALBICANS, PARAPSILOSIS, TROPICALIS 0.000 19.961 - 30.770 ppm 09/24/2024 6:03 AM EDT [facility] ANDREIA ALBICANS, PARAPSILOSIS, TROPICALIS Not Detected 19.961 - 30.770 ppm 09/24/2024 6:03 AM EDT [facility] ANDREIA GLABRATA 0.000 23.000 - 32.138 ppm 09/24/2024 6:03 AM EDT [facility] ANDREIA GLABRATA Not Detected 23.000 - 32.138 ppm 09/24/2024 6:03 AM EDT [facility] ANDREIA KRUSEI 0.000 23.000 - 32.271 ppm 09/24/2024 6:03 AM EDT [facility] ANDREIA KRUSEI Not Detected 23.000 - 32.271 ppm 09/24/2024 6:03 AM EDT [facility] CHLAMYDIA TRACHOMATIS 0.000 23.000 - 31.467 ppm 09/24/2024 6:03 AM EDT [facility] CHLAMYDIA TRACHOMATIS Not Detected 23.000 - 31.467 ppm 09/24/2024 6:03 AM EDT [facility] GARDNERELLA VAGINALIS 32.818(A) 19.961 - 24.689 ppm 09/24/2024 6:03 AM EDT [facility] GARDNERELLA VAGINALIS Detected(A) 19.961 - 24.689 ppm 09/24/2024 6:03 AM EDT [facility] MEGASPHAERA (TYPES 1, 2) 0.000 19.961 - 24.689 ppm 09/24/2024 6:03 AM EDT [facility] MEGASPHAERA (TYPES 1, 2) Not Detected 19.961 - 24.689 ppm 09/24/2024 6:03 AM EDT [facility] NEISSERIA GONORRHOEAE 0.000 23.000 - 32.117 ppm 09/24/2024 6:03 AM EDT [facility] NEISSERIA GONORRHOEAE Not Detected 23.000 - 32.117 ppm 09/24/2024 6:03 AM EDT [facility] TRICHOMONAS VAGINALIS 0.000 23.000 - 32.119 ppm 09/24/2024 6:03 AM EDT [facility] TRICHOMONAS VAGINALIS Not Detected 23.000 - 32.119 ppm 09/24/2024 6:03 AM EDT [facility] MYCOPLASMA GENITALIUM 0.000 19.961 - 24.689 ppm 09/24/2024 6:03 AM EDT [facility] MYCOPLASMA GENITALIUM Not Detected 19.961 - 24.689 ppm 09/24/2024 6:03 AM EDT [facility] Tissue 09/23/2024 11:5 7 AM EDT 09/24/2024 1:38 AM EDT us Vic Eugene DO LAB BLOOD ORDERABLES Final Resul t [facility] [address] [place] [address] * IGP,APTIMA HPV,AGE GDLN (09/23/2024 11:12 AM EDT) AGE GDLN ACOG TESTING Note . [facility] Comment: TESTS RESULT FLAG UNITS REF RANGE LAB Clinician Provided Cytology Information Source.............Cervix Other.............. No. of containers..01 ThinPrep Vial Age Algo ACOG Ijll... 21-23 06 FLAG LEGEND: L-Low Normal,H-High Normal,LL-Alert Low,HH-Alert High <-Panic Low,>-Panic High,A-Abnormal,AA-Critical Abnormal Performed at: 01 =G [facility] [address] [facility] [place] [address] Yuni Barakat MD, IGP, RFX APTIMA HPV ASCU Note . [facility] Comment: TESTS RESULT FLAG UNITS REF RANGE LAB DIAGNOSIS: 02 NEGATIVE FOR INTRAEPITHELIAL LESION OR MALIGNANCY. Specimen adequacy: 02 Satisfactory for evaluation. No endocervical component is identified. An endocervical component is not commonly seen in the patient. Performed by: Mateus Fitzgerald, Farm Assistant ([facility]) . 02 Note: Note 02 [...] <-Panic Low,>-Panic High,A-Abnormal,AA-Critical Abnormal Performed at: [address] [address] Yuni Barakat MD, Performed at: = - [facility] [address] [id number] Director Engineering: Yuni Barakat MD, Phone: [phone] Performed at: [facility] [id number] Director Engineering: Yuni Barakat MD, Phone: [phone] 09/23/2024 11:1 2 AM EDT 09/23/2024 3:08 PM EDT Narrative [facility] - 09/27/2024 12:09 PM EDT SPATULA-ALONE CERVIX Vic Valorie DO LAB BLOOD ORDERABLES Final Resul t Performing Organization Address [facility] Co de Phone Number [facility] * Pap Smear (09/23/2024 12:00 AM EDT) Swab Cervical swab / Unknown Vic Valorie DO LAB CYTOLOGY ORDERABLES Final Re sult Performing Organization Address [facility]/ZIP Co de Phone Number EXTERNAL LAB from Last 3 Months Additional Health Concerns Active Problems Noted Date Diagnosed Date OB Reminders 08/14/2024 Insurance Care Teams Electrical Mechanic Relationship Specialty Start Date End Date Marlon Laguna MD [address] [place] [address] PCP - General Family Medicine 08/29/23 Vic Eugene DO [address] [place] [address] [place] [address] Referring Physician Obstetrics and Gynecology 08/16/24
--- OUTSIDE RECORDS SUMMARY | 2024-12-24 10:03 | XMS_ITS | Encounter Summary ---
Author Organization [facility] Address [address] [place] [address] Care Team Providers Care Electronics Assembler Name Role Phone Marlon Laguna MD Primary Care Provider [phone] Saul Eugene DO Unavailable Encounter Details Date Type Department Care Team (Late st Contact Info) Description 11/22/2024 Abstract [facility] [address] [place] [phone] Saul Eugene DO [address] [place], [facility]11 Social History Tobacco Use Types Packs/Day [...] [facility] [address] [place] [address] Saul Eugene DO [address] [place] [address] 03/28/2025 2:00 PM EST Office Visit [facility] [place] [facility] [address] [place] [phone] Saul Eugene DO [address] [facility] [place] [address] documented as of this encounter Goals Goal Patient Goal Type Associated Problems Recent Progress Patient-Stated? Author Reminders Care Plan OB Reminders No Open Scheduling, Background documented as of this encounter Visit Diagnoses Not on filedocumented in this encounter Additional Health Concerns Active Problems Noted Date Diagnosed Date OB Reminders 08/14/2024 documented as of this encounter Care Teams Electronics Assembler Relationship Specialty Start Date End Date Marlon Laguna MD [address] [facility] [place] [address] PCP - General Family Medicine 08/29/23 Saul Eugene DO [address] [place] [address] Referring Physician Obstetrics and Gynecology 08/16/24 documented as of this encounter
--- OUTSIDE RECORDS SUMMARY | 2024-12-24 10:03 | XMS_ITS | Encounter Summary ---
Author Organization [facility] Address [address] [place] [address] Care Team Providers Care Fitness Plan Coordinator Name Role Phone Marlon Laguna MD Primary Care Provider [phone] Saul Eugene DO Unavailable Encounter Details Date Type Department Care Team (Latest Contact Info) Description 12/23/2024 Travel Social History Tobacco Use Types Packs/Day [...] AM EDT Routine [facility] [place] [facility] [address] [facility] [place] [address] Saul Eugene DO [address] [place], [place] [phone] 03/28/2025 2:00 PM EST Office Visit [facility] [place] [facility] [address] [place] [address] Saul Eugene DO [address] [place] [address] documented as of this encounter Goals Goal Patient Goal Type Associated Problems Recent Progress Patient-Stated? Author Reminders Care Plan OB Reminders No Open Scheduling, Background documented as of this encounter Visit Diagnoses Not on filedocumented in this encounter Additional Health Concerns Active Problems Noted Date Diagnosed Date OB Reminders 08/14/2024 documented as of this encounter Care Teams Fitness Plan Coordinator Relationship Specialty Start Date End Date Marlon Laguna MD [address] [facility] [place] [address] PCP - General Family Medicine 08/29/23 Saul Eugene DO [address] [place] [address] Referring Physician Obstetrics and Gynecology 08/16/24 documented as of this encounter
--- OUTSIDE RECORDS SUMMARY | 2024-12-24 10:03 | XMS_ITS | Encounter Summary ---
Author Organization [facility] Address [id number] [address] [place] [address] Care Team Providers Care Farm Agent Name Role Phone Belén Rooney MD Primary Care Provider Reason for Visit * Reason Onset Date Comments Med Refill 07/05/2021 Encounter Details Date Type Department Care Team (Late st Contact Info) Description 07/05/2021 Refill [facility] Neurology - Farshad Ramsay MD [address] [address] Farshad Ramsay MD [address] [place] [address] Trigeminal neuralgia (Primary Dx) Social History Tobacco [...] Info) Description 12/29/2024 11:00 AM EDT Appointment [facility] US Imaging [address] [place] [phone] 12/29/2024 1:00 PM EDT Office Visit Maternal- Medicine at [facility] [address] [facility] [place] [address] Alex Subramanian MD [address] [facility] [place], [address] [place] [address] 01/10/2025 8:30 AM EDT Office Visit Maternal- Medicine at [facility] [address] [place] [address] Jefferson Nava MD [address] [place], [address] [place] [address] documented as of this encounter Visit Diagnoses Diagnosis Trigeminal neuralgia- Primary documented in this encounter Care Teams Farm Agent Relationship Specialty Start Date End Date Belén Rooney MD [address] [place] [phone] PCP - General Family Medicine 09/29/18 documented as of this encounter
--- OUTSIDE RECORDS SUMMARY | 2024-12-24 10:03 | XMS_ITS | Encounter Summary ---
Author Organization [facility] Address [address] [place] [address] Care Team Providers Care Cooling System Operator Name Role Phone Marlon Laguna MD Primary Care Provider [phone] Vic Eugene DO Unavailable Encounter Details Date Type Department Care Team (Late st Contact Info) Description 12/21/2024 Clinisync Result Encounter [facility] External Department Unsolicited Vic Eugene, [address] [place], [place] [phone] Social History Tobacco Use Types Packs/Day Years [...] AM EDT Routine [facility] [place] [facility] [address] [place] [address] Vic Eugene, DO [address] [facility] [place] [address] 03/28/2025 2:00 PM EST Office Visit [facility] [place] [facility] [address] [facility] [place] [phone] Vic Eugene, DO [address] [facility] [place] [address] documented as of this encounter Goals Goal [...] EDT Narrative 12/21/2024 3:02 PM EDT The [address] [address] Ultrasound Report Signed Patient: MINNIE BUNCH MR#: [id number] : 1995 Acct:[id number] Age/Sex: 29 / F ADM Date: 12/21/24 Loc: US Attending Dr: Vic Eugene D.O. Ordering Physician: Vic Eugene D.O. Date of Service: 12/21/24 Procedure(s): US OB BPP w non-stress Accession Number(s): [id number] cc: Vic Eugene D.O.; Marlon Laguna M.D. The [address] [address] Patient Name: MINNIE BUNCH MRN: [id number] date: 1995 Sex: F Assigned Patient Location: US Current Patient Location: Accession/Order Number: [id number] Exam Date: 12/21/2024 14:56 Report Date: 12/21/2024 15:00 At the request of: VIC EUGENE DO Procedure: US OB BPP w non-stress Biophysical profile. Reason for exam: No chorionic diamniotic twin gestation. COMPARISON: None TECHNIQUE: Transabdominal imaging of the gravid uterus was obtained. FINDINGS: The senior oracle adf developer reports a fetus A BPP of 6 out of 8 with 0 points for breathing.. MVP is 6.3 cm. heart rate 135 bpm. The senior oracle adf developer reports fetus B BPP of 8 out of 8. MVP is 3.7 cm. heart rate 139 bpm. US/US OB BPP w non-stress IMPRESSION: BPP 6out of 8 for Fetus A. Correlation with NST is recommended. BPP 8 out of 8 for fetus B. Impression dictated by: Barrington Spears Jr., D.O. 12/21/2024 3:00 PM Dictation Location: [place] [address] Electronically authenticated by: [id number] Y Date: 12/21/2024 15:00 Dictated By: Barrington Spears M.D. Signed By: 12/21/24 1502 DD/ 1500 TD/TT: Wood Model Builder: Procedure Note Radiology, Radiologist, MD - 12/21/2024 [place] [address] Ultrasound Report Signed Patient: MINNIE BUNCH [facility]#: [id number] : 1995Acct:[id number] Age/Sex: Date: 12/21/24 Loc: US Attending Dr: Vic Eugene D.O. Ordering Physician: Vic Eugene D.O. Date of Service: 12/21/24 Procedure(s): US OB BPP w non-stress Accession Number(s): [id number] cc: Vic Eugene D.O.; Marlon Laguna M.D. The [place] [id number] Patient Name: MINNIE BUNCH MRN: [id number] date: 1995 Sex: F Assigned Patient Location: Current Patient Location: Accession/Order Number: [id number] Exam Date: 12/21/2024 14:56 Report Date: 12/21/2024 15:00 At the request of: VIC EUGENE DO Procedure: US OB BPP w non-stress Biophysical profile. Reason for exam: No chorionic diamniotic twin gestation. COMPARISON: None TECHNIQUE: Transabdominal imaging of the gravid uterus was obtained. FINDINGS: The senior oracle adf developer reports a fetus A BPP of 6 out of 8 with 0points for breathing.. MVP is 6.3 cm. heart rate 135 bpm. The senior oracle adf developer reports fetus B BPP of 8 out of 8. MVP is 3.7 cm. heart rate 139 bpm. US/US OB BPP w non-stress IMPRESSION: BPP 6out of 8 for Fetus A. Correlation with NST is recommended. BPP 8 out of 8 for fetus B. Impression dictated by: Barrington Spears Jr., D.O. 12/21/2024 3:00 PM Dictation Location: [place] [address] Electronically authenticated by: [id number] Y Date: 5:00 Dictated By: Barrington Spears M.D. Signed By:12/21/24 1502 DD/ 1500 TD/TT: Wood Model Builder: Vic Eugene DO [facility] Final Result documented in this encounter Visit Diagnoses Not on filedocumented in this encounter Additional Health Concerns Active Problems Noted Date Diagnosed Date OB Reminders 08/14/2024 documented as of this encounter Care Teams Cooling System Operator Relationship Specialty Start Date End Date Marlon Laguna MD [address] [facility] [place] [address] PCP - General Family Medicine 08/29/23 Vic Eugene DO [address] [place] [address] [place] [address] Referring Physician Obstetrics and Gynecology 08/16/24 documented as of this encounter
--- OUTSIDE RECORDS SUMMARY | 2024-12-24 10:03 | XMS_ITS | Encounter Summary ---
Author Organization [facility] Address [address] [place] [address] Care Team Providers Care Hairspring Vibrator Name Role Phone Marlon Laguna MD Primary Care Provider [phone] Saul Eugene DO Unavailable Encounter Details Date Type Department Care Team (Late st Contact Info) Description 11/22/2024 Abstract [facility] [address] [place] [phone] Saul Eugene DO [address] [place], [facility] Social History Tobacco Use Types Packs/Day [...] [facility] [address] [place] [address] Saul Eugene DO [address] [place] [address] 03/28/2025 2:00 PM EST Office Visit [facility] [place] [facility] [address] [facility] [place] [phone] Saul Eugene DO [address] [facility] [place] [address] documented as of this encounter Goals Goal Patient Goal Type Associated Problems Recent Progress Patient-Stated? Author Reminders Care Plan OB Reminders No Open Scheduling, Background documented as of this encounter Visit Diagnoses Not on filedocumented in this encounter Additional Health Concerns Active Problems Noted Date Diagnosed Date OB Reminders 08/14/2024 documented as of this encounter Care Teams Hairspring Vibrator Relationship Specialty Start Date End Date Marlon Laguna MD [address] [facility] [place] [address] PCP - General Family Medicine 08/29/23 Saul Eugene DO [address] [place] [address] Referring Physician Obstetrics and Gynecology 08/16/24 documented as of this encounter
--- OUTSIDE RECORDS SUMMARY | 2024-12-24 10:03 | XMS_ITS | Encounter Summary ---
Author Organization [facility] Address [address] [place] [address] Care Team Providers Care Licensed Funeral Director Name Role Phone Marlon Laguna MD Primary Care Provider [phone] Saul Eugene DO Unavailable Encounter Details Date Type Department Care Team (Late st Contact Info) Description 12/14/2024 Abstract [facility] [address] [place] [phone] Saul Eugene DO [address] [place], [facility] Social History Tobacco Use Types [...] [facility] [address] [place] [address] Saul Eugene DO [address] [place] [address] 03/28/2025 2:00 PM EST Office Visit [facility] [place] [facility] [address] [facility] [place] [phone] Saul Eugene DO [address] [facility] [place] [address] documented as of this encounter Goals Goal Patient Goal Type Associated Problems Recent Progress Patient-Stated? Author Reminders Care Plan OB Reminders No Open Scheduling, Background documented as of this encounter Visit Diagnoses Not on filedocumented in this encounter Additional Health Concerns Active Problems Noted Date Diagnosed Date OB Reminders 08/14/2024 documented as of this encounter Care Teams Licensed Funeral Director Relationship Specialty Start Date End Date Marlon Laguna MD [address] [facility] [place] [address] PCP - General Family Medicine 08/29/23 Saul Eugene DO [address] [place] [address] Referring Physician Obstetrics and Gynecology 08/16/24 documented as of this encounter
--- OUTSIDE RECORDS SUMMARY | 2024-12-24 10:03 | XMS_ITS | Encounter Summary ---
Author Organization [facility] Address [address] [place] [address] Care Team Providers Care Twenty One Dealer Name Role Phone Marlon Laguna MD Primary Care Provider [phone] Saul Eugene DO Unavailable Encounter Details Date Type Department Care Team (Late st Contact Info) Description 09/12/2023 Clinisync Result Encounter [facility] External Department Unsolicited Saul Eugene DO [address] [place] [place], [place] [phone] Social History Tobacco Use Types Packs/Day Years [...] AM EDT Routine [facility] [place] [facility] [address] [place] [phone] Saul Eugene DO [address] [place] [address] 03/28/2025 2:00 PM EST Office Visit [facility] [place] [facility] [address] [facility] [place] [phone] Saul Eugene DO [address] [facility] [place] [address] documented as of this encounter Procedures Procedure Name Priority Date/Time Associated Diagnosis Comments US BREAST LT LIMITED 09/12/2023 2:31 PM EDT documented in this encounter Results * US BREAST LT LIMITED (09/12/2023 2:31 PM EDT) Anatomical Region Laterality Modality Other 09/12/2023 2:31 PM EDT Narrative 09/12/2023 2:32 PM EDT [address] [address] Ultrasound Report Signed Patient: MINNIE SWIFT MR#: [id number] : 1995 Acct:[id number] Age/Sex: 28 / F ADM Date: 09/10/23 Loc: US Attending Dr: Saul Eugene D.O. Ordering Physician: Saul Eugene D.O. Date of Service: 09/10/23 Procedure(s): US breast LT limited Accession Number(s): [id number] cc: Saul Eugene D.O.; Marlon Laguna M.D. Patient Name: MINNIE SWIFT MR#: [id number] : 1995 Exam Date: 09/10/2023 Ordering Doctor: [...] Signed By: 09/12/23 1432 DD/ 1431 TD/TT: Commercial Management Accountant: Procedure Note Radiology, Radiologist, MD - 09/12/2023 [place] [address] Ultrasound Report Signed Patient: MINNIE SWIFT AMR#: [id number] : 1995Acct:[id number] Age/Sex: Date: 09/10/23 Loc: US Attending Dr: Saul Eugene D.O. Ordering Physician: Saul Eugene D.O. Date of Service: 09/10/23 Procedure(s): US breast LT limited Accession Number(s): [id number] cc: Saul Eugene D.O.; Marlon Laguna M.D. Patient Name: MINNIE SWIFT MR#: [id number] : 1995 Exam Date: 09/10/2023 Ordering Doctor: [...] evaluation. RECOMMENDATIONS: MAMMOGRAPHIC VIEWS: LEFT BREAST - MLO CC PLEASE NOTE: A NORMAL ULTRASOUND EXAMINATION DOES NOT EXCLUDE THEPOSSIBILITY OF BREAST CANCER. A CLINICALLY SUSPICIOUS PALPABLE LUMP SHOULD BEBIOPSIED. Dictated by: Daljit Chamberlain M.D. on 09/12/2023 at 14:28 Approved by: Daljit Chamberlain M.D. on 09/12/2023 at 14:31 Dictated By: Daljit Chamberlain M.D. Signed By:09/12/23 1432 DD/ 1431 TD/TT: Commercial Management Accountant: Saul Eugene DO [facility] Final Result documented in this encounter Visit Diagnoses Not on filedocumented in this encounter Care Teams Twenty One Dealer Relationship Specialty Start Date End Date Marlon Laguna MD [address] [place] [address] PCP - General Family Medicine 08/29/23 Saul Eugene DO [address] [place] [address] [place] [address] Referring Physician Obstetrics and Gynecology 08/16/24 documented as of this encounter
--- OUTSIDE RECORDS SUMMARY | 2024-12-24 10:03 | XMS_ITS | Encounter Summary ---
Author Organization [facility] Address [id number] [address] [place] [address] Care Team Providers Care Etiquette Teacher Name Role Phone Belén Rooney MD Primary Care Provider [phone] Encounter Details Date Type Department Care Team (Late st Contact Info) Description 04/26/2021 Orders Only [facility] Neu[facility] - Farshad Ramsay MD [address] [address] Farshad Ramsay MD [address] [place] [address] Trigeminal neuralgia Social History Tobacco Use Types [...] Info) Description 12/29/2024 11:00 AM EDT Appointment [facility] US Imaging [address] [place] [address] 12/29/2024 1:00 PM EDT Office Visit Maternal- Medicine at [facility] [address] [place] [address] Alex Subramanian MD [address], [address] [place] [address] 01/10/2025 8:30 AM EDT Office Visit Maternal- Medicine at [facility] [address] [place] [phone] Jefferson Nava MD [address], [address] [place] [address] documented as of this encounter Procedures Procedure Name Priority Date/Time Associated Diagnosis Comments CBC WITH AUTO DIFFERENTIAL Routine 04/25/2021 Trigeminal neuralgia LIVER PANEL Routine 04/25/2021 Trigeminal neuralgia documented in this encounter Results * CBC auto differential (04/25/2021) 04/25/2021 us Farshad Ramsay MD LAB BLOOD ORDERABLES Final Result Performing Organization Address City/[facility]/ZIP Co de Phone Number MANUALLY TRANSCRIBED RESULTS * Liver panel (04/25/2021) 04/25/2021 us Farshad Ramsay MD LAB BLOOD ORDERABLES Edited Result - Final MANUALLY TRANSCRIBED RESULTS documented in this encounter Visit Diagnoses Diagnosis Trigeminal neuralgia documented in this encounter Care Teams Etiquette Teacher Relationship Specialty Start Date End Date Belén Rooney MD [address] [place] [address] PCP - General Family Medicine 09/29/18 documented as of this encounter
--- OUTSIDE RECORDS SUMMARY | 2024-12-24 10:10 | XMS_ITS | CCD ---
Author Organization [facility] Care Team Providers Care Teacher Tutor Name Role Phone Seven Bakari Tavera Unavailable Unavailable Sadiq, Michael L Unavailable Unavailable Sadiq, Michael L Unavailable Unavailable BAKARI AMEZCUA Unavailable Unavailable NO FAMILY DOCTOR, NO FAMILY DOCTOR Unavailable Unavailable DELMY ZAPATA Unavailable Unav ailable NO FAMILY DOCTOR, NO FAMILY DOCTOR Unavailable Unavailable HOY ., DR BENNETT Admitting Unavailable HOY ., DR BENNETT Attending Unavailable HOY ., DR BENNETT Primary Care Unavailable HOY ., DR BENNETT Consulting Unavailable HOY ., DR BENNETT Admitting Unavailable HOY ., DR BENNETT Attending Unavailable HOY ., DR BENNETT Primary Care Unavailable HOY ., DR BENNETT Consulting Unavailable VALORIE ., DR HO Admitting Unavailable VALORIE ., DR HO Attending Unavailable BRENDA, DR BELÉN Varma Primary Care Unavailable VALORIE ., DR HO Consulting Unavailable Sabrina Ramirez MD Primary Care Provider [phone] PARMINDER RAMSAY Attending Unavailable ROONEY, BELÉN A Referring Unavailable BRENDA BELÉN A Primary Care Unavailable Belén Rooney MD Primary Care Provider [phone] Valorie DO, Saul Unavailable MYA WALTON Referring Unavailable JJ ROONEYHER A Primary Care Unavailable Sabrina Ramirez MD Primary Care Provider [phone] VALORIE, SAUL Attending Unavailable VALORIE, SAUL Attending Unavailable VALORIE, SAUL Attending Unavailable VALORIE, SAUL Attending Unavailable VALORIE, SAUL Attending Unavailable VALORIE, SAUL Attending Unavailable VALORIE, SAUL Attending Unavailable VALORIE, SAUL R Referring Unavailable BRENDA BELÉN A Primary Care Unavailable MYA WALTON Attending Unavailable VALORIE, SAUL R Referring Unavailable ROONEY, BELÉN A Primary Care Unavailable VALORIE, SAUL R Referring Unavailable ROONEY, BELÉN A Primary Care Unavailable VALORIE, SAUL R Referring Unavailable ROONEY, BELÉN A Primary Care Unavailable BLAISE WOODALL Attending Unavailable VALORIE, SAUL R Referring Unavailable ROONEY, BELÉN A Primary Care Unavailable VALORIE, SAUL R Referring Unavailable ROONEY, BELÉN A Primary Care Unavailable VALORIE, SAUL R Referring Unavailable ROONEY, BELÉN A Primary Care Unavailable PARMINDER NEGRO Admitting Unavailable PARMINDER NEGRO Attending Unavailable ROONEY, BELÉN A Primary Care Unavailable AMINA ANDERS Consulting Unavailable ELIEYMELODY Referring Unavailable ROONEY, BELÉN A Primary Care Unavailable ROONEY, BELÉN A Primary Care Unavailable VALORIE, SAUL R Referring Unavailable AMINA ANDERS Attending Unavailable VALORIE, SAUL R Referring Unavailable ROONEY, BELÉN A Primary Care Unavailable VALORIE, SAUL R Referring Unavailable ROONEY, BELÉN A Primary Care Unavailable VALORIE, SAUL R Referring Unavailable ROONEY, BELÉN A Primary Care Unavailable VALORIE, SAUL R Referring Unavailable ROONEY, BELÉN A Primary Care Unavailable VALORIE, SAUL R Referring Unavailable ROONEY, BELÉN A Primary Care Unavailable BLAISE WOODALL Attending Unavailable VALORIE, SAUL R Referring Unavailable ROONEY, BELÉN A Primary Care Unavailable VALORIE, SAUL R Referring Unavailable ROONEY, BELÉN A Primary Care Unavailable VALORIE, SAUL R Referring Unavailable ROONEY, BELÉN A Primary Care Unavailable Medications Current Medications Medication Drug Class(es) Dates Sig (Normalized) Sig (Original) acetaminophen 325 mg / butalbital 50 mg oral tablet (7 sources) Barbiturate End: 09-01-2024 Butalbital-Acetamin ophen 50-325 MG tablet 1 tablet as needed Orally Prn 09/01/2024 Discontinued (Other) acetaminophen 325 mg / butalbital 50 mg / caffeine 40 mg / codeine phosphate 30 mg oral capsule (7 sources) Opioid Agonist, Barbiturate, Central Nervous System Stimulant, Methylxanthine End: 09-01-2024 take 1 capsule by mouth every four hours as needed butalbital-acetamin fymyh-[id number]-zgwq ine (Fioricet W/Codeine) 53-409-65-30 MG capsule Take 1 capsule by mouth every 4 (four) hours if needed 09/01/2024 Discontinued (Other) aspirin 81 mg delayed release oral tablet (20 sources) Platelet Aggregation Inhibitor, Nonsteroidal Anti-inflammatory Drug take 1 tablet by mouth in the morning aspirin 81 MG EC tablet Take 81 mg by mouth in the morning. Active Blood Glucose Monitoring Suppl (D-Care Glucometer) w/Device kit (6 sources) Start: 11-24-2024 End: 11-24-2025 Blood Glucose Monitoring Suppl (D-Care Glucometer) w/Device kit Indications: Gestational diabetes mellitus (GDM), antepartum, gestational diabetes method of control unspecified ([facility]) , Elevated glucose tolerance test 1 kit Daily Use four times daily to check FSBS. In the morning prior to breakfast & 1 hour after each meal for a total of 4times daily. 1 kit 11/24/2024 11/24/2025 Active cyproheptadine hydrochloride 4 mg oral tablet (20 sources) Start: 09-24-2016 End: 09-01-2024 cyproheptadine (PERIACTIN) 4 mg tablet 09/24/2016 Active docusate sodium 100 mg oral capsule (20 sources) End: 11-16-2024 take 1 capsule by mouth in the morning docusate sodium (Colace) 100 MG capsule Take 100 mg by mouth in the morning and 100 mg before bedtime. Active doxepin hydrochloride 10 mg oral capsule (20 sources) Tricyclic Antidepressant Start: 03-21-2023 End: 09-01-2024 take 1 capsule by mouth in the morning, then take 1 capsule by mouth at bedtime doxepin (SINEquan) 10 mg capsule Take 1 capsule (10 mg total) by mouth in the morning and 1 capsule (10 mg total) before bedtime. 03/21/2023 Active ethinyl estradiol 0.035 mg / norethindrone 1 mg oral tablet (20 sources) Estrogen Start: 10-01-2016 PIRMELLA 1-35 mg-mcg per tablet 10/01/2016 Active End: 02-23-2024 norethindrone-ethinyl estrad iol (Nortrel 1/35, 21,) 1-35 MG-MCG tablet 1 tablet Orally Daily for Three Weeks, 1 Week off 02/23/2024 Discontinued (Therapy completed) isopropyl alcohol 0.7 ml/ml medicated pad (6 sources) Start: 11-24-2024 Alcohol Swabs (Alcohol Prep Pad) 70 % pads Indications: Gestational diabetes mellitus (GDM), antepartum, gestational diabetes method of control unspecified ([facility]) , Elevated glucose tolerance test Apply 1 Pad topically Daily Use four times daily to check FSBS. 150 each 3 11/24/2024 Active magnesium oxide 400 mg oral tablet (20 sources) Start: 09-24-2016 magnesium oxid e (MAG-OX) 400 mg tablet 09/24/2016 Active ondansetron 4 mg oral tablet (20 sources) Serotonin-3 Receptor Antagonist take 1 tablet by mouth every eight hours as needed for nausea and vomiting ondansetron (ZOFRAN) 4 mg tablet Take 4 mg by mouth every 8 (eight) hours as needed for nausea or vomiting. Active no115/iron/folic acid ( 19 ORAL) (19 sources) take 1 tablet by mouth in the morning no115/iron/folic acid ( 19 ORAL) Take 1 tablet by mouth in the morning. take 1 tablet by mouth in the mo rning no115/iron/folic acid ( 19 ORAL) Take 1 tablet by mouth in the morning. Active Vit-Fe Fumarate-FA ( Vitamins) 28-0.8 MG tablet (20 sources) Start: 02-23-2024 End: 02-22-2025 take 1 tablet by mouth once daily Vit-Fe Fumarate-FA ( Vitamins) 28-0.8 MG tablet Indications: Well woman exam with routine gynecological exam Take 1 tablet by mouth Daily 30 tablet 11 02/23/2024 02/22/2025 Active Completed/Discontinued Medications Medication Drug Class(es) Dates Sig (Normalized) Sig (Original) acetaminophen 500 mg oral tablet (1 source) Start: 11-07-2024 End: 11-08-2024 1,000 mg, oral, As needed, moderate pain - pain scale 4-6, Starting on 11/07/24 at 1047 ARIPiprazole 5 mg oral tablet (4 sources) Atypical Antipsychotic Start: 07-18-2023 End: 02-23-2024 take 1 tablet by mouth once daily, then take 0.5 tablet by mouth once daily ARIPiprazole (Abilify) 5 MG tablet TAKE 1 TABLET BY MOUTH DAILY FOR 1 WEEK, THEN 1/2 TABLET DAILY FOR 1 WEEK. 07/18/2023 02/23/2024 Discontinued (Therapy completed) Start: 05-27-2023 End: 02-23-2024 take 1 tablet by mouth once daily ARIPiprazole (Abilify) 2 MG tablet Take 2 mg by mouth Daily 05/27/2023 02/23/2024 Discontinued (Therapy completed) busPIRone hydrochloride 10 mg oral tablet (20 sources) Start: 11-07-2024 End: 11-08-2024 take 5 mg by mouth once daily 5 mg, oral, Daily, First dose on 11/07/24 at 1100, Look-alike/sound-alike medication - verify indication for use. Avoid grapefruit juice. Start: 01-07-2023 take 1 tablet by naty th in the morning, then take 1 tablet by mouth at bedtime busPIRone (BUSPAR) 5 mg tablet Take 1 tablet (5 mg total) by mouth in the morning and 1 tablet (5 mg total) before bedtime. 01/07/2023 Active calcium carbonate 500 mg chewable tablet (1 source) Start: 11-07-2024 End: 11-08-2024 200 mg, oral, Every 8 hours PRN, indigestion, heartburn, GI Distress, Starting on 11/07/24 at 0932, L&D Pre-Delivery, Ordered as elemental calcium. 200 mg elemental calcium = 500 mg calcium carbonate calcium chloride 0.0014 meq/ml / potassium chloride 0.004 meq/ml / sodium chloride 0.103 meq/ml / sodium lactate 0.028 meq/ml injectable solution (2 sources) Start: 11-07-2024 End: 11-07-2024 take 125 mL intravenously every hour 125 mL/hr, intravenous, Continuous, Starting on 11/07/24 at 0945, For 1 day, L&D Pre-Delivery Start: 11-07-2024 End: 11-07-2024 1,000 mL, intravenous, at 98 4 mL/hr, Administer over 61 Minutes, Once, On 11/07/24 at 0715, For 1 dose escitalopram 10 mg oral tablet (20 sources) Serotonin Reuptake Inhibitor Start: 11-07-2024 End: 11-08-2024 take 20 mg by mouth once daily 20 mg, oral, Daily, First dose on 11/07/24 at 1100, Look-alike/sound-alike medication - verify indication for use. Start: 03-21-2023 take 1 tablet by naty th in the morning escitalopram (LEXAPRO) 20 mg tablet Take 1 tablet (20 mg total) by mouth in the morning. 03/21/2023 Active Start: 01-21-2023 End: 02-23-2024 take 1 tablet by mouth in the morning escitalopram (Lexapro) 10 MG tablet Take 10 mg by mouth in the morning. 01/21/2023 02/23/2024 Discontinued Ethinyl Estradiol / Ferrous fumarate / Norethindrone (6 sources) Estrogen Start: 06-02-2023 End: 02-23-2024 norethindrone-ethinyl estrad iol (Wilmer Fe 1/20) 1-20 MG-MCG tablet Indications: Uses control Take 1 tablet by mouth in the morning. 28 tablet 12 06/02/2023 02/23/2024 Discontinued Start: 06-02-2023 End: 06-01-2024 norethindrone-ethinyl estrad iol (Wilmer Fe 1/20) 1-20 MG-MCG tablet Indications: Uses control Take 1 tablet by mouth in the morning. 28 tablet 12 06/02/2023 06/01/2024 Active Start: 02-18-2023 End: 02-23-2024 take 1 tablet by mouth in the morning norethindrone-ethinyl estradiol-iron (Lo Loestrin Fe) 1 MG-10 MCG / 10 MCG tablet Indications: control counseling Take 1 tablet by mouth in the morning. 28 tablet 2 02/18/2023 02/23/2024 Discontinued Start: 02-18-2023 take 1 tablet by naty th in the morning norethindrone-ethinyl estradiol-iron (Lo Loestrin Fe) 1 MG-10 MCG / 10 MCG tablet Indications: control counseling Take 1 tablet by mouth in the morning. 28 tablet 2 02/18/2023 Active Ethinyl Estradiol / Levonorgestrel (3 sources) Progestin, Estrogen, Progestin-containing Intrauterine Device Start: 02-10-2023 End: 02-23-2024 Levonorgest-Eth Estradiol-Iron (Balcoltra) 0.1-20 MG-MCG(21) tablet Indications: Uses control Balcoltra 28 tablet 11 02/10/2023 02/23/2024 Discontinued Start: 02-10-2023 Levonorgest-Et h Estradiol-Iron (Balcoltra) 0.1-20 MG-MCG(21) tablet Indications: Uses control Balcoltra 28 tablet 11 02/10/2023 Active ferrous sulfate 325 mg oral tablet (2 sources) Start: 03-25-2023 End: 02-23-2024 take 1 tablet by mouth in the morning SV Iron 325 (65 Fe) MG tablet Take 1 tablet by mouth in the morning and 1 tablet before bedtime. 03/25/2023 02/23/2024 Discontinued gabapentin 100 mg oral capsule (4 sources) Anti-epileptic Agent Start: 11-30-2022 End: 04-13-2024 take 1 capsule by mouth in the morning gabapentin (NEURONTIN) 100 mg capsule Indications: Trigeminal neuralgia Take 1 capsule (100 mg total) by mouth in the morning. 90 capsule 4 04/10/2023 04/13/2024 Discontinued hydrOXYzine hydrochloride 50 mg oral tablet (3 sources) Antihistamine Start: 12-23-2022 End: 02-23-2024 hydrOXYzine HCl (Atarax) 50 MG tablet Take 50 mg by mouth in the morning and 50 mg at noon and 50 mg in the evening and 50 mg before bedtime. 12/23/2022 02/23/2024 Discontinued ibuprofen 800 mg oral tablet (2 sources) Nonsteroidal Anti-inflammatory Drug Start: 09-15-2023 End: 02-23-2024 take 1 tablet by mouth every eight hours as needed ibuprofen 800 MG tablet TAKE 1 TABLET BY MOUTH EVERY 8 HOURS NEEDED WITH FOOD OR MILK 09/15/2023 02/23/2024 Discontinued (Therapy completed) LORazepam 0.5 mg oral tablet (2 sources) Benzodiazepine End: 02-23-2024 LORazepam (Ativan) 0.5 MG tablet 1 capsule 02/23/2024 Discontinued (Therapy completed) PNV,calcium 69-nyki-gqayj acid ( PLUS) 27 mg iron- 1 mg tablet 1 tablet (1 source) Start: 11-07-2024 End: 11-08-2024 take 1 tablet by mouth once daily 1 tablet, oral, Daily, First dose on 11/07/24 at 0945, L&D Pre-Delivery 125 ml sodium chloride 9 mg/ml prefilled syringe (1 source) Start: 11-07-2024 End: 11-08-2024 3 mL, intravenous, Every 12 hours, First dose on 11/07/24 at 2245 triazolam 0.25 mg oral tablet (2 sources) Benzodiazepine Start: 09-30-2023 End: 02-23-2024 triazolam (Halcion) 0.25 MG tablet TAKE 1 TABLET BY MOUTH THE NIGHT PRIOR TO PROCEDURE, THEN TAKE 1 TAB 1 HOUR PRIOR TO PROCEDURE 09/30/2023 02/23/2024 Discontinued (Therapy completed) Problems Active Problems Problem Classification Problem Date Documented Date Episodic/Chronic Cardiac dysrhythmias (10 sources) Palpitations; Translations: [Palpitations] Onset: 10-04-2024 09-27-2024 Episodic Early or threatened labor (12 sources) Premature uterine contraction; Translations: [False labor before 37 completed weeks of gestation, unspecified trimester] Onset: 11-07-2024 11-07-2024 Episodic Immunizations and screening for infectious disease (4 sources) Encounter for screening for human papillomavirus (HPV); Translations: [Encounter for screening for infections with a predominantly sexual mode of transmission] Onset: 12-28-2021 09-23-2024 Episodic Malaise and fatigue (1 source) Other fatigue; Translations: [OTHER FATIGUE] Onset: 09-09-2022 Episodic Other complications of (15 sources) growth restriction; Translations: [Maternal care for other known or suspected poor growth, second trimester, fetus 1] 11-04-2024 Episodic Other complications of (1 source) Maternal care for other known or suspected poor growth, second trimester, fetus 2; Translations: [Maternal care for other known or suspected poor growth, second trimester, fetus 2] Onset: 12-06-2024 Episodic Other complications of (1 source) Maternal care for other known or suspected poor growth, second trimester, not applicable or unspecified; Translations: [Maternal care for other known or suspected poor growth, second trimester, not applicable or unspecified] Onset: 11-29-2024 Episodic Other complications of (1 source) Maternal care for other known or suspected poor growth, second trimester, fetus 1; Translations: [Maternal care for other known or suspected poor growth, second trimester, fetus 1] Onset: 10-26-2024 Episodic Other female genital disorders (2 sources) Vaginal discharge; Translations: [Other specified noninflammatory disorders of vagina] 09-23-2024 Episodic Other and delivery including normal (20 sources) First trimester ; Translations: [Encounter for supervision of normal , unspecified, first trimester] Onset: 11-15-2024 09-01-2024 Episodic Other screening for suspected conditions (not mental disorders or infectious disease) (8 sources) Encounter for screening for malignant neoplasm of cervix; Translations: [Patient encounter status] Onset: 12-25-2021 Episodic Other upper respiratory infections (1 source) Chronic sinusitis, unspecified; Translations: [Chronic sinusitis, unspecified] Onset: 11-25-2017 Chronic Residual codes; unclassified (2 sources) Gestation period, 12 weeks; Translations: [12 weeks gestation of ] 09-01-2024 Episodic Residual codes; unclassified (2 sources) Gestation period, 15 weeks; Translations: [15 weeks gestation of ] 09-23-2024 Episodic Residual codes; unclassified (2 sources) Gestation period, 19 weeks; Translations: [19 weeks gestation of ] 10-20-2024 Episodic Residual codes; unclassified (1 source) Gestation period, 20 weeks; Translations: [20 weeks gestation of ] 10-26-2024 Episodic Residual codes; unclassified (2 sources) Gestation period, 23 weeks; Translations: [23 weeks gestation of ] 11-16-2024 Episodic Residual codes; unclassified (3 sources) Gestation period, 25 weeks; Translations: [25 weeks gestation of ] 11-30-2024 Episodic Residual codes; unclassified (1 source) 25 weeks gestation of ; Translations: [25 weeks gestation of ] Onset: 12-06-2024 Episodic Residual codes; unclassified (1 source) 20 weeks gestation of ; Translations: [20 weeks gestation of ] Onset: 10-26-2024 Episodic Umbilical cord complication (11 sources) Velamentous insertion of umbilical cord; Translations: [Velamentous insertion of umbilical cord, second trimester] Onset: 12-06-2024 5 Episodic Unclassified (2 sources) Unspecified infectious disease / B99.9(ICD-9) Onset: 01-15-2018 Unclassified (2 sources) Chronic sinusitis, unspecified / J32.9(ICD-9) Onset: 11-25-2017 Unclassified (20 sources) OB Reminders Onset: 08-14-2024 08-14-2024 Unclassified (1 source) PM MYCHART PREG BODY CHANGES Onset: 11-30-2024 11-30-2024 Unclassified (1 source) Contractions Onset: 11-07-2024 Unclassified (1 source) [place] Onset: 09-27-2024 Past or Other Problems Problem Classification Problem Date Documented Date Episodic/Chronic Other female genital disorders (1 source) Other specified noninflammatory disorders of vagina; Translations: [OTH SPEC NONINFLAMMATORY D/O VAGINA] Onset: 12-28-2021 Episodic Other nervous system disorders (20 sources) Trigeminal neuralgia; Translations: [Trigeminal neuralgia] Onset: 04-11-2022 04-13-2024 Episodic Unclassified (1 source) Unspecified infectious disease; Translations: [Unspecified infectious disease] Onset: 01-15-2018 Results Test Name Value Interpretation Reference Range Facility No Panel InformationOrdered By: Radiologist Radiology on 12-21-2024 [facility] Work Phone: No Panel Informationon 12-21 Radiology Study observation (narrative) [facility] OB BPP W NON-STRESS on 12-21-2024 [place] [address] Ultrasound Report Signed Patient: MINNIE BUNCH MR#: [id number] : 1995 Acct:[id number] Age/Sex: 29 / F ADM Date: 12/21/24 Loc: US Attending Dr: Saul Eugene D.O. Ordering Physician: Saul Eugene D.O. Date of Service: 12/21/24 Procedure(s): US OB BPP w non-stress Accession Number(s): [id number] cc: Saul Eugene D.O.; Sabrina Ramirez M.D. The [address] [address] Patient Name: MINNIE BUNCH MRN: [facility]:[id number] date: 1995 Sex: F Assigned Patient Location: US Current Patient Location: Accession/Order Number: [id number] Exam Date: 12/21/2024 14:56 Report Date: 12/21/2024 15:00 At the request of: SAUL EUGENE DO Procedure: US OB BPP w non-stress Biophysical profile. Reason for exam: No chorionic diamniotic twin gestation. COMPARISON: None TECHNIQUE: Transabdominal imaging of the gravid uterus was obtained. FINDINGS: The activities coordinator reports a fetus A BPP of 6 out of 8 with 0 points for breathing.. MVP is 6.3 cm. heart rate 135 bpm. The activities coordinator reports fetus B BPP of 8 out of 8. MVP is 3.7 cm. heart rate 139 bpm. US/US OB BPP w non-stress IMPRESSION: BPP 6out of 8 for Fetus A. Correlation with NST is recommended. BPP 8 out of 8 for fetus B. Impression dictated by: Barrington Spears Jr., D.O. 12/21/2024 3:00 PM Dictation Location: [place] [address] Electronically authenticated by: [id number] Y Date: 12/21/2024 15:00 Dictated By: Barrington Spears M.D. Signed By: 12/21/24 1502 DD/ 1500 TD/TT: Brush Maker Machine: [facility] Radiology, Radiologi MD carlos - 12/21/2024 [place] [address] Ultrasound Report Signed Patient: MINNIE BUNCH MR#: [id number] : 1995 Acct:[id number] Age/Sex: 29 / F ADM Date: 12/21/24 Loc: US Attending Dr: Saul Eugene D.O. Ordering Physician: Saul Eugene D.O. Date of Service: 12/21/24 Procedure(s): US OB BPP w non-stress Accession Number(s): [id number] cc: Saul Eugene D.O.; Sabrina Ramirez M.D. [place] [id number] Patient Name: MINNIE BUNCH MRN: [id number] date: 1995 Sex: F Assigned Patient Location: US Current Patient Location: Accession/Order Number: [id number] Exam Date: 12/21/2024 14:56 Report Date: 12/21/2024 15:00 At the request of: SAUL EUGENE DO Procedure: US OB BPP w non-stress Biophysical profile. Reason for exam: No chorionic diamniotic twin gestation. COMPARISON: None TECHNIQUE: Transabdominal imaging of the gravid uterus was obtained. FINDINGS: The activities coordinator reports a fetus A BPP of 6 out of 8 with 0 points for breathing.. MVP is 6.3 cm. heart rate 135 bpm. The activities coordinator reports fetus B BPP of 8 out of 8. MVP is 3.7 cm. heart rate 139 bpm. US/US OB BPP w non-stress IMPRESSION: BPP 6out of 8 for Fetus A. Correlation with NST is recommended. BPP 8 out of 8 for fetus B. Impression dictated by: Barrington Spears Jr., D.O. 12/21/2024 3:00 PM Dictation Location: [place] [address] Electronically authenticated by: [id number] Y Date: 12/21/2024 15:00 Dictated By: Barrington Spears M.D. Signed By: 12/21/24 1502 DD/ 1500 TD/TT: Brush Maker Machine: [facility] [place] [address] Ultrasound Report Signed Patient: MINNIE BUNCH MR#: [id number] : 1995 Acct:[id number] Age/Sex: 29 / F ADM Date: 12/21/24 Loc: US Attending Dr: Saul Eugene D.O. Ordering Physician: Saul Eugene D.O. Date of Service: 12/21/24 Procedure(s): US OB BPP w non-stress Accession Number(s): [id number] cc: Saul Eugene D.O.; Sabrina Ramirez M.D. The [place] [address] Patient Name: MINNIE BUNCH MRN: [facility]:[id number] date: 1995 Sex: F Assigned Patient Location: US Current Patient Location: Accession/Order Number: [id number] Exam Date: 12/21/2024 14:56 Report Date: 12/21/2024 15:00 At the request of: SAUL EUGENE DO Procedure: US OB BPP w non-stress Biophysical profile. Reason for exam: No chorionic diamniotic twin gestation. COMPARISON: None TECHNIQUE: Transabdominal imaging of the gravid uterus was obtained. FINDINGS: The activities coordinator reports a fetus A BPP of 6 out of 8 with 0 points for breathing.. MVP is 6.3 cm. heart rate 135 bpm. The activities coordinator reports fetus B BPP of 8 out of 8. MVP is 3.7 cm. heart rate 139 bpm. US/US OB BPP w non-stress IMPRESSION: BPP 6out of 8 for Fetus A. Correlation with NST is recommended. BPP 8 out of 8 for fetus B. Impression dictated by: Barrington Spears Jr., D.O. 12/21/2024 3:00 PM Dictation Location: [place] [address] Electronically authenticated by: [id number] Y Date: 12/21/2024 15:00 Dictated By: Barrington Spears M.D. Signed By: 12/21/24 1502 DD/ 1500 TD/TT: Brush Maker Machine: [facility] Radiology Radiologdede gonzalez MD - 12/21/2024 [place] [address] Ultrasound Report Signed Patient: MINNIE BUNCH MR#: [id number] : 1995 Acct:[id number] Age/Sex: 29 / F ADM Date: 12/21/24 Loc: US Attending Dr: Saul Eugene D.O. Ordering Physician: Saul Eugene D.O. Date of Service: 12/21/24 Procedure(s): US OB BPP w non-stress Accession Number(s): [id number] cc: Saul Eugene D.O.; Sabrina Ramirez M.D. [place] [id number] Patient Name: MINNIE BUNCH MRN: [id number] date: 1995 Sex: F Assigned Patient Location: US Current Patient Location: Accession/Order Number: [id number] Exam Date: 12/21/2024 14:56 Report Date: 12/21/2024 15:00 At the request of: SAUL EUGENE DO Procedure: US OB BPP w non-stress Biophysical profile. Reason for exam: No chorionic diamniotic twin gestation. COMPARISON: None TECHNIQUE: Transabdominal imaging of the gravid uterus was obtained. FINDINGS: The activities coordinator reports a fetus A BPP of 6 out of 8 with 0 points for breathing.. MVP is 6.3 cm. heart rate 135 bpm. The activities coordinator reports fetus B BPP of 8 out of 8. MVP is 3.7 cm. heart rate 139 bpm. US/US OB BPP w non-stress IMPRESSION: BPP 6out of 8 for Fetus A. Correlation with NST is recommended. BPP 8 out of 8 for fetus B. Impression dictated by: Barrington Spears Jr., D.O. 12/21/2024 3:00 PM Dictation Location: [place] [address] Electronically authenticated by: [id number] Y Date: 12/21/2024 15:00 Dictated By: Barrington Spears M.D. Signed By: 12/21/24 1502 DD/ 1500 TD/TT: Brush Maker Machine: [facility] ALL CBC WITH AUTO DIFFon BASOPHILS ABSOLUTE AUTO 0 [facility] Basophils/100 WBC (Bld) 0.1 % Low 0.2 - 2.0 % [facility] Eosinophils/100 WBC (Bld) 0.4 % Low 0.9 - 7.0 % [facility] Erythrocyte distribution width (RBC) [Ratio] 13.3 % 11.0 - 15.0 % [facility] Hematocrit (Bld) [Volume fraction] 32.1 % Low 36.0 - 48.0 % [facility] Hemoglobin (Bld) [Mass/Vol] 10.8 g/dL Low 12.0 - 16.0 g/dL [facility] IMMATURE GRANULOCYTES ABS AUTO 0.06 High [facility] Immature granulocytes/100 WBC (Bld) 0.6 % High 0.0 - 0.5 % [facility] Interpretation and review of laboratory results Abnormal [facility] LYMPHOCYTES ABSOLUTE AUTO 1 Low [facility] Lymphocytes/100 WBC (Bld) 10.4 % Low 20.5 - 60.0 % [facility] MCH (RBC) [Entitic mass] 29.4 pg 26.7 - 34.0 pg [facility] MCHC (RBC) [Mass/Vol] 33.6 g/dL 29.9 - 35.2 g/dL [facility] MCV (RBC) [Entitic vol] 87.5 fL 81.0 - 99.0 fL [facility] MONOCYTES ABSOLUTE AUTO 0.6 [facility] Monocytes/100 WBC (Bld) 5.5 % 1.7 - 12.0 % [facility] NEUTROPHILS ABSOLUTE AUTO 8.3 High [facility] Neutrophils/100 WBC (Bld) 83 % High 43.0 - 75.0 % [facility] Platelet mean volume (Bld) [Entitic vol] 9.3 fL Low 9.5 - 13.5 fL [facility] TBH EO # 0 [facility] TBH PLT 231 [facility] RBC 3.67 Low [facility] TB WBC 10 [facility] Unlisted Lab Teston 11-24-19 25 Free Cell Dna LOW RISK [facility] Bacteria identified Cx Nom ( U)on 11-08-2024 Bacteria identified Aer cx Nom (Unsp spec) NO GROWTH AT <1000 CFU/mL [facility] C. trachomatis DNA RANDALL+probe Ql (Unsp spec)Ordered By: Fidelina Lin on 11-08-2024 Interpretation and review of laboratory results Normal [facility] N. gonorrhoeae DNA RANDALL+probe Ql (Unsp spec) Negative Negative [facility] Comment on above: Neisseria gonorrhoea e not detected by nucleic acid amplification. This does not exclude the possibility of infection because results are dependent on adequate specimen collection. [facility] Chlamydia/GC by PCR Alexandra Sw abOrdered By: Fidelina Lin on 11-08-2024 C. trachomatis DNA RANDALL+probe Ql (Unsp spec) Negative Negative [facility] Comment on above: Chlamydia trachomati s not detected by nucleic acid amplification. This does not exclude the possibility of infection because results are dependent on adequate specimen collection. Strep B screenOrdered By: Jackelin Sigala on 11-08-2024 Bacteria identified Aer cx Nom (Unsp spec) NEGATIVE FOR GROUP B STREPTOCOCCUS BY NUCLEIC ACID AMPLIFICATION [facility] US MFM with or without consu lton 11-08-2024 NAME: ALIVIA HARTMAN : 1995 SEX: F Accession Number: [id number] ORDERING PHYSICIAN: ARMINDA ROME REFERRING PHYSICIAN: SAUL EUGENE Coding Procedures 66663: Limited OB / NATHAN, 1 or More Fetuses 81230: Doppler velocimetry, ; umbilical artery. 2 11637: Doppler velocimetry, ; middle cerebral artery. 2 54887: Doppler Ductus Venosus. 2 Indication [place]-Di twin , IUGR-Poor growth-twin A, Pre term contractions. History OB History 1. Para 0 [id number] Maternal Assessment Physical Exam Height 157 cm, 5 ft 2 in. Weight 65 kg, 144 lb. Initial weight 64 kg, 141 lb. BMI 26.34 kg/m . Initial BMI 25.79 kg/m . Weight gain 1 kg, 3 lb Method Transabdominal ultrasound examination Twin . Number of fetuses: 2. Monochorionic-diamniotic Dating LMP on: 06/08/2024 GA by LMP 21 w + 6 d VICTOR M by LMP: 03/15/2025 Assigned: based on the LMP, selected on 09/27/2024 Assigned GA 21 w + 6 d Assigned VICTOR M: 03/15/2025 Fetus A: General Evaluation Cardiac activity Present. FHR 151 bpm. movements: visualized. Presentation: Cephalic, Lower Right Placenta: Placental site: posterior, away from cervical os Umbilical cord: Cord vessels: 3 vessel cord Amniotic fluid: Amount of AF: normal amount. MVP 3.6 cm Fetus B: General Evaluation Cardiac activity Present. FHR 154 bpm. movements: visualized. Presentation: Breech, Upper Left Placenta: Placental site: posterior, away from cervical os Umbilical cord: Cord vessels: 3 vessel cord Amniotic fluid: Amount of AF: normal amount. MVP 3.4 cm Fetus A: Doppler Umbilical Artery: normal PI 1.38 92% Ebbing PS -35.76 cm/s TAmax -20.45 cm/s MD -7.97 cm/s S / D 4.58 78% Kiran Mid Cerebral Artery: normal PI 1.11 2% Ebbing RI 0.68 19% Bahlmann PS 21.81 cm/s PS 0.79 MoM ED 6.93 cm/s TAmax 12.79 cm/s 54% Ebbing CPR PI 0.80 2% Ebbing Ductus Venosus: normal Fetus B: Doppler Umbilical Artery: normal PI 1.07 36% Ebbing PS -42.76 cm/s TAmax -26.29 cm/s MD -12.39 cm/s S / D 3.21 21% Kiran Mid Cerebral Artery: normal PI 1.43 18% Ebbing RI 0.77 56% Bahlmann PS 25.71 cm/s PS 0.93 MoM ED 6.02 cm/s TAmax 14.62 cm/s 77% Ebbing CPR PI 1.34 30% Ebbing Ductus Venosus: normal Impression Monochorionic-diamniotic twin . Twin A is Cephalic, Lower Right. Amniotic fluid MVP measures 3.6 cm. ladder and stomach are visualized. Umbilical artery S/D ratio in normal range. MCA PSV is in the unremarkable range for the evaluation of anemia. Ductus venosus demonstrates continuous forward flow. Twin B is Breech, Upper Left. Amniotic fluid MVP measures 3.4 cm. bladder and stomach are visualized. Umbilical artery S/D ratio in normal range. MCA PSV is in the unremarkable range for the evaluation of anemia. Ductus venosus demonstrates continuous forward flow. Recommendations Subsequent follow up or other follow up as clinically determined by primary OB provider unless otherwise specified by [facility]. Results forwarded to ordering provider so they can follow up with the patient as necessary. [facility] Mya Walton MD - 11/08/2024 NAME: ALIVIA HARTMAN : 1995 SEX: F Accession Number: [id number] ORDERING PHYSICIAN: ARMINDA ROME REFERRING PHYSICIAN: SAUL EUGENE Coding Procedures 44396: Limited OB / NATHAN, 1 or More Fetuses 65990: Doppler velocimetry, ; umbilical artery. 2 23409: Doppler velocimetry, ; middle cerebral artery. 2 93460: Doppler Ductus Venosus. 2 Indication [place]-Di twin , IUGR-Poor growth-twin A, Pre term contractions. History OB History 1. Para 0 [id number] Maternal Assessment Physical Exam Height 157 cm, 5 ft 2 in. Weight 65 kg, 144 lb. Initial weight 64 kg, 141 lb. BMI 26.34 kg/m . Initial BMI 25.79 kg/m . Weight gain 1 kg, 3 lb Method Transabdominal ultrasound examination Twin . Number of fetuses: 2. Monochorionic-diamniotic Dating LMP on: 06/08/2024 GA by LMP 21 w + 6 d VICTOR M by LMP: 03/15/2025 Assigned: based on the LMP, selected on 09/27/2024 Assigned GA 21 w + 6 d Assigned VICTOR M: 03/15/2025 Fetus A: General Evaluation Cardiac activity Present. FHR 151 bpm. movements: visualized. Presentation: Cephalic, Lower Right Placenta: Placental site: posterior, away from cervical os Umbilical cord: Cord vessels: 3 vessel cord Amniotic fluid: Amount of AF: normal amount. MVP 3.6 cm Fetus B: General Evaluation Cardiac activity Present. FHR 154 bpm. movements: visualized. Presentation: Breech, Upper Left Placenta: Placental site: posterior, away from cervical os Umbilical cord: Cord vessels: 3 vessel cord Amniotic fluid: Amount of AF: normal amount. MVP 3.4 cm Fetus A: Doppler Umbilical Artery: normal PI 1.38 92% Ebbing PS -35.76 cm/s TAmax -20.45 cm/s MD -7.97 cm/s S / D 4.58 78% Kiran Mid Cerebral Artery: normal PI 1.11 2% Ebbing RI 0.68 19% Bahlmann PS 21.81 cm/s PS 0.79 MoM ED 6.93 cm/s TAmax 12.79 cm/s 54% Ebbing CPR PI 0.80 2% Ebbing Ductus Venosus: normal Fetus B: Doppler Umbilical Artery: normal PI 1.07 36% Ebbing PS -42.76 cm/s TAmax -26.29 cm/s MD -12.39 cm/s S / D 3.21 21% Kiran Mid Cerebral Artery: normal PI 1.43 18% Ebbing RI 0.77 56% Bahlmann PS 25.71 cm/s PS 0.93 MoM ED 6.02 cm/s TAmax 14.62 cm/s 77% Ebbing CPR PI 1.34 30% Ebbing Ductus Venosus: normal Impression Monochorionic-diamniotic twin . Twin A is Cephalic, Lower Right. Amniotic fluid MVP measures 3.6 cm. ladder and stomach are visualized. Umbilical artery S/D ratio in normal range. MCA PSV is in the unremarkable range for the evaluation of anemia. Ductus venosus demonstrates continuous forward flow. Twin B is Breech, Upper Left. Amniotic fluid MVP measures 3.4 cm. bladder and stomach are visualized. Umbilical artery S/D ratio in normal range. MCA PSV is in the unremarkable range for the evaluation of anemia. Ductus venosus demonstrates continuous forward flow. Recommendations Subsequent follow up or other follow up as clinically determined by primary OB provider unless otherwise specified by [facility]. Results forwarded to ordering provider so they can follow up with the patient as necessary. [facility] Radiology Study observation (narrative) [facility] ABO Rh Repeaton 11-07-2024 [facility] ABO A [facility] Rh Nom (Bld) Positive [facility] CBC WITH AUTO DIFFERENTIALon 11-07-2024 BASOPHILS ABSOLUTE COUNT (10*3/UL) BY AUTOMATED COUNT 0.0 10*3/uL Normal 0.0-0.2 [facility] Comment on above: Performed By: #### C BCA #### [facility] ([facility]) [address] [place] [address] VIR BASOPHILS RELATIVE PERCENT BY AUTOMATED COUNT 0.1 % Normal [facility] Comment on above: Performed By: #### C BCA #### [facility] ([facility]) [address] [place] [address] VIR CELLAVISION DIFFERENTIAL TYPE AUTOMATED DIFFERENTIAL Normal [facility] Comment on above: Performed By: #### C BCA #### [facility] ([facility]) [address] [place] [address] VIR Eosinophils (Bld) [#/Vol] 0.0 10*3/uL Normal 0.0-0.4 [facility] Comment on above: Performed By: #### C BCA #### [facility] ([facility]) [address] [place] [address] VIR EOSINOPHILS RELATIVE PERCENT BY AUTOMATED COUNT 0.1 % Normal [facility] Comment on above: Performed By: #### C BCA #### [facility] ([facility]) [address] [place] [address] VIR Erythrocyte distribution width (RBC) [Ratio] 13.8 % Normal 11.5-15 [facility] Comment on above: Performed By: #### C BCA #### [facility] ([facility]) [address] [place] [address] VIR Hematocrit (Bld) [Volume fraction] 33.3 % Low 35-47 [facility] Comment on above: Performed By: #### C BCA #### [facility] ([facility]) [address] [place] [address] VIR Hemoglobin (Bld) [Mass/Vol] 11.3 g/dL Low 11.7-15.5 [facility] Comment on above: Performed By: #### C BCA #### [facility] ([facility]) [address] [place] [address] VIR LYMPHOCYTES ABSOLUTE COUNT (10*3/UL) BY AUTOMATED COUNT 0.9 10*3/uL Low 1.0-3.5 [facility] Comment on above: Performed By: #### C BCA #### [facility] ([facility]) [address] [place] [address] VIR LYMPHOCYTES RELATIVE PERCENT BY AUTOMATED COUNT 9.8 % Normal [facility] Comment on above: Performed By: #### C BCA #### [facility] ([facility]) [address] [place] [address] VIR MCH (RBC) [Entitic mass] 29.2 pg Normal 27-34 [facility] Comment on above: Performed By: #### C BCA #### [facility] ([facility]) [address] [place] [address] VIR MCHC (RBC) [Mass/Vol] 33.9 g/dL Normal 32-36 [facility] Comment on above: Performed By: #### C BCA #### [facility] ([facility]) [address] [place] [address] VIR MCV (RBC) [Entitic vol] 86 fL Normal 80-100 [facility] Comment on above: Performed By: #### C BCA #### [facility] ([facility]) [address] [place] [address] VIR MONOCYTES ABSOLUTE COUNT (10*3/UL) BY AUTOMATED COUNT 0.5 10*3/uL Normal 0.0-0.9 [facility] Comment on above: Performed By: #### C BCA #### [facility] ([facility]) [address] [place] [address] VIR MONOCYTES RELATIVE PERCENT BY AUTOMATED COUNT 5.5 % Normal [facility] Comment on above: Performed By: #### C BCA #### [facility] ([facility]) [address] [place] [address] VIR NEUTROPHILS ABSOLUTE COUNT BY AUTOMATED COUNT 8.1 10*3/uL High 1.5-6.6 [facility] Comment on above: Performed By: #### C BCA #### [facility] ([facility]) [address] [place] [address] VIR NEUTROPHILS RELATIVE PERCENT BY AUTOMATED COUNT 84.5 % Normal [facility] Comment on above: Performed By: #### C BCA #### [facility] ([facility]) [address] [place] [address] VIR Platelet mean volume (Bld) [Entitic vol] 7.4 fL Normal 7-12 [facility] Comment on above: Performed By: #### C BCA #### [facility] ([facility]) [address] [place] [address] VIR Platelets (Bld) [#/Vol] 253 10*3/uL Normal 150-450 [facility] Comment on above: Performed By: #### C BCA #### [facility] ([facility]) [address] [place] [address] VIR RBC COUNT 3.85 X10E12/L Normal 3.8-5.2 [facility] Comment on above: Performed By: #### C BCA #### [facility] ([facility]) [address] [place] [address] VIR WBC (Bld) [#/Vol] 9.6 10*3/uL Normal 4-11 [facility] Comment on above: Performed By: #### C BCA #### [facility] ([facility]) [address] [place] [address] VIR CBC auto differentialon 06-1 5-2025 Basophils (Bld) [#/Vol] 0 10*3/uL 0.0 - 0.2 10*3/uL [facility] Basophils/100 WBC (Bld) 0.1 % [facility] Differential cell count method Nom (Bld) AUTOMATED DIFFERENTIAL [facility] Eosinophils (Bld) [#/Vol] 0 10*3/uL 0.0 - 0.4 10*3/uL [facility] Eosinophils/100 WBC (Bld) 0.1 % [facility] Erythrocyte distribution width (RBC) [Ratio] 13.8 % 11.5 - 15 % [facility] Hematocrit (Bld) [Volume fraction] 33.3 % Low 35 - 47 % [facility] Hemoglobin (Bld) [Mass/Vol] 11.3 g/dL Low 11.7 - 15.5 g/dL [facility] Interpretation and review of laboratory results Abnormal [facility] Lymphocytes (Bld) [#/Vol] 0.9 10*3/uL Low 1.0 - 3.5 10*3/uL [facility] Lymphocytes/100 WBC (Bld) 9.8 % [facility] MCH (RBC) [Entitic mass] 29.2 pg 27 - 34 pg [facility] MCHC (RBC) [Mass/Vol] 33.9 g/dL 32 - 3 6 g/dL [facility] MCV (RBC) [Entitic vol] 86 fL 80 - 100 fL [facility] Monocytes (Bld) [#/Vol] 0.5 10*3/uL 0.0 - 0.9 10*3/uL [facility] Monocytes/100 WBC (Bld) 5.5 % [facility] Neutrophils (Bld) [#/Vol] 8.1 10*3/uL High 1.5 - 6.6 10*3/uL [facility] Neutrophils/100 WBC (Bld) 84.5 % [facility] Platelet mean volume (Bld) [Entitic vol] 7.4 fL 7 - 12 fL [facility] Platelets (Bld) [#/Vol] 253 10*3/uL [facility] RBC (Bld) [#/Vol] 3.85 10*6/uL [facility] WBC LM Ql (Sput) 9.6 [facility] CHLAMYDIA/GC BY PCR ALEXANDRA SW ABon 11-07-2024 CHLAMYDIA/GC BY PCR ALEXANDRA SWAB CHLAMYDIA DNA(PCR) Negative Chlamydia trachomatis not detected by nucleic acid amplification. This does not exclude the possibility of infection because results are dependent on adequate specimen collection. GONORRHOEAE DNA(PCR) Negative Neisseria gonorrhoeae not detected by nucleic acid amplification. This does not exclude the possibility of infection because results are dependent on adequate specimen collection. Normal [facility] Comment on above: Performed By: #### C GS #### [facility] ([facility]) [address] [place] [address] VIR Er Extra Urineon 11-07-2024 Extra Tube Auto Resulted [facility] REPEATED ABORHon 11-07-2024 ABO_INTEP A Normal [facility] Comment on above: Performed By: #### A LANDEN #### [facility] ([facility]) [address] [place] [address] VIR RH_INTEP Positive [facility] Comment on above: Performed By: #### A LANDEN #### [facility] ([facility]) [address] [place] [address] VIR SST TOPon 11-07-2024 Extra Tube Auto Resulted [facility] STREP B SCREENon 11-07-2024 STREP B SCREEN CULTURE RESULTS NEGATIVE FOR GROUP B STREPTOCOCCUS BY NUCLEIC ACID AMPLIFICATION [facility] Comment on above: Performed By: #### S BSC #### [facility] ([facility]) [address] [place] [address] VIR TYPE AND SCREENon 11-07-2024 ABO_INTEP A [facility] Comment on above: Performed By: #### T SC #### [facility] ([facility]) [address] [place] [address] VIR RH_INTEP Positive [facility] Comment on above: Performed By: #### T SC #### [facility] ([facility]) [address] [place] [address] VIR Type and screen(includes ind irect pedro)on 11-07-2024 ABO A [facility] Rh Nom (Bld) Positive [facility] URINALYSISon 11-07-2024 Bilirubin Ql (U) Negative Normal Negative [facility] Comment on above: Performed By: #### U A #### [facility] ([facility]) [address] [place] [address] VIR BLOOD/HGB Negative Normal Negative [facility] Comment on above: Performed By: #### U A #### [facility] ([facility]) [address] [place] [address] VIR Color (U) Colorless Normal Yellow, Colorless [facility] Comment on above: Performed By: #### U A #### [facility] ([facility]) [address] [place] [address] VIR Glucose Ql (U) Negative Normal Negative [facility] Comment on above: Performed By: #### U A #### [facility] ([facility]) [address] [place] [address] VIR Ketones Ql (U) Negative Normal Negative [facility] Comment on above: Performed By: #### U A #### [facility] ([facility]) [address] [place] [address] VIR Leukocyte esterase Test strip Ql (U) Small Abnormal Negative [facility] Comment on above: Performed By: #### U A #### [facility] ([facility]) [address] [place] [address] VIR MUCOUS Present Abnormal None [facility] Comment on above: Performed By: #### U A #### [facility] ([facility]) [address] [place] [address] VIR Nitrite Ql (U) Negative Normal Negative [facility] Comment on above: Performed By: #### U A #### [facility] ([facility]) [address] [place] [address] VIR PH,URINE 6.5 Normal 5.0-8.5 [facility] Comment on above: Performed By: #### U A #### [facility] ([facility]) [address] [place] [address] VIR Protein Ql (U) Negative Normal Negative [facility] Comment on above: Performed By: #### U A #### [facility] ([facility]) [address] [place] [address] VIR R.B.CELLS 3 Normal 0-5 [facility] Comment on above: Performed By: #### U A #### [facility] ([facility]) [address] [place] [address] VIR Specific gravity (U) [Rel density] 1.003 Normal 1.003-1.035 [facility] Comment on above: Performed By: #### U A #### [facility] ([facility]) [address] [place] [address] VIR SQUAMOUS EPITHELIUM 9 High 0-5 [facility] Comment on above: Performed By: #### U A #### [facility] ([facility]) [address] [place] [address] VIR TURBIDITY Hazy Abnormal Clear [facility] Comment on above: Performed By: #### U A #### [facility] ([facility]) [address] [place] [address] VIR UROBILINOGEN <1.1 eu/dL Normal <1.1 eu/dL [facility] Comment on above: Performed By: #### U A #### [facility] ([facility]) [address] [place] [address] VIR W.B.CELLS 9 High 0-5 [facility] Comment on above: Performed By: #### U A #### [facility] ([facility]) [address] [place] [address] VIR URINE CULTUREon 11-07-2024 Bacteria identified Cx Nom (U) CULTURE RESULTS NO GROWTH AT <1000 CFU/mL Normal [facility] Comment on above: Performed By: #### U C #### [facility] ([facility]) [address] [place] [address] VIR US MFM with or without consu lton 11-07-2024 NAME: ALIVIA HARTMAN : 1995 SEX: F Accession Number: [id number] ORDERING PHYSICIAN: MYA WALTON REFERRING PHYSICIAN: MELODY ESTES Coding Procedures 89818: Limited OB / NATHAN, 1 or More Fetuses [address]9558: Transvaginal Ultrasound (OB) STAT Patient Location: Triage Indication [place]-Di twin , IUGR-Poor growth-twin A, Screening for cervical length History OB History 1. Para 0 [id number] Maternal Assessment Physical Exam Height 157 cm, 5 ft 2 in. Initial weight 64 kg, 141 lb. Initial BMI 25.79 kg/m Method Transabdominal and transvaginal ultrasound examination Twin . Number of fetuses: 2. Monochorionic-diamniotic Dating LMP on: 06/08/2024 GA by LMP 21 w + 5 d VICTOR M by LMP: 03/15/2025 Assigned: based on the LMP, selected on 09/27/2024 Assigned GA 21 w + 5 d Assigned VICTOR M: 03/15/2025 Fetus A: General Evaluation Cardiac activity Present. FHR 146 bpm. Presentation: cephalic, Lower Right Placenta: Placental site: posterior, away from cervical os Amniotic fluid: Amount of AF: normal amount. MVP 4.0 cm Fetus B: General Evaluation Cardiac activity Present. FHR 146 bpm. Presentation: transverse head maternal right, Upper Left Placenta: Placental site: posterior, away from cervical os Amniotic fluid: Amount of AF: normal amount. MVP 4.2 cm Fetus A: Anatomy The following structures appear normal: Abdomen: Stomach. Bladder. Fetus B: Anatomy The following structures appear normal: Abdomen Stomach. Bladder. Maternal Structures Uterus Visualized Cervix Visualized Approach - Transvaginal: Cervical length 3.00 cm Right Ovary Not visualized Left Ovary Not visualized Cul de Sac Visualized. No free fluid visualized Impression Monochorionic-diamniotic twin . Twin A is cephalic, Lower Right. Amniotic fluid MVP measures 4 cm. Bladder and stomach visualized. Velamentous cord insertion measures 2.78 cm away from internal os. Vasa Previa appears resolved on today's exam. Twin B is transverse head maternal right, Upper Left. Amniotic fluid MVP measures 4.2 cm. Bladder and stomach visualized. Recommendations Subsequent follow up or other follow up as clinically determined by primary OB provider unless otherwise specified by MFM. Results forwarded to ordering provider so they can follow up with the patient as necessary. [facility] Mya Walton MD - 11/07/2024 NAME: ALIVIA HARTMAN : 1995 SEX: F Accession Number: [id number] ORDERING PHYSICIAN: MYA WALTON REFERRING PHYSICIAN: MELODY ESTES Coding Procedures 36845: Limited OB / NATHAN, 1 or More Fetuses 29720: Transvaginal Ultrasound (OB) STAT Patient Location: Triage Indication [place]-Di twin , IUGR-Poor growth-twin A, Screening for cervical length History OB History 1. Para 0 [id number] Maternal Assessment Physical Exam Height 157 cm, 5 ft 2 in. Initial weight 64 kg, 141 lb. Initial BMI 25.79 kg/m Method Transabdominal and transvaginal ultrasound examination Twin . Number of fetuses: 2. Monochorionic-diamniotic Dating LMP on: 06/08/2024 GA by LMP 21 w + 5 d VICTOR M by LMP: 03/15/2025 Assigned: based on the LMP, selected on 09/27/2024 Assigned GA 21 w + 5 d Assigned VICTOR M: 03/15/2025 Fetus A: General Evaluation Cardiac activity Present. FHR 146 bpm. Presentation: cephalic, Lower Right Placenta: Placental site: posterior, away from cervical os Amniotic fluid: Amount of AF: normal amount. MVP 4.0 cm Fetus B: General Evaluation Cardiac activity Present. FHR 146 bpm. Presentation: transverse head maternal right, Upper Left Placenta: Placental site: posterior, away from cervical os Amniotic fluid: Amount of AF: normal amount. MVP 4.2 cm Fetus A: Anatomy The following structures appear normal: Abdomen: Stomach. Bladder. Fetus B: Anatomy The following structures appear normal: Abdomen Stomach. Bladder. Maternal Structures Uterus Visualized Cervix Visualized Approach - Transvaginal: Cervical length 3.00 cm Right Ovary Not visualized Left Ovary Not visualized Cul de Sac Visualized. No free fluid visualized Impression Monochorionic-diamniotic twin . Twin A is cephalic, Lower Right. Amniotic fluid MVP measures 4 cm. Bladder and stomach visualized. Velamentous cord insertion measures 2.78 cm away from internal os. Vasa Previa appears resolved on today's exam. Twin B is transverse head maternal right, Upper Left. Amniotic fluid MVP measures 4.2 cm. Bladder and stomach visualized. Recommendations Subsequent follow up or other follow up as clinically determined by primary OB provider unless otherwise specified by M. Results forwarded to ordering provider so they can follow up with the patient as necessary. [facility] Radiology Study observation (narrative) [facility] UrinalysisOrdered By: Susan brady on 11-07-2024 Bilirubin Ql (U) Negative Negative [facility] Color (U) Colorless Yellow, Colorless [facility] Epithelial cells Auto (Urine sed) [#/Area] 9 High 0 - 5 [facility] Glucose (U) [Mass/Vol] Negative Negative [facility] Hemoglobin Auto test strip Ql (U) Negative Negative [facility] Interpretation and review of laboratory results Abnormal [facility] Ketones (U) [Mass/Vol] Negative Negative [facility] Leukocyte esterase Auto test strip Ql (U) Small Abnormal Negative [facility] Mucus Ql (Urine sed) Present Abnormal None [facility] Nitrite Auto test strip Ql (U) Negative Negative [facility] pH (U) 6.5 [pH] 5.0 - 8.5 [facility] Protein (U) [Mass/Vol] Negative Negative [facility] RBC Auto (Urine sed) [#/Area] 3 0 - 5 [facility] Specific gravity Refractometry automated (U) [Rel density] 1.003 1.003 - 1.035 [facility] Turbidity Ql (U) Hazy Abnormal Clear [facility] Urobilinogen Qn (U) {Carline'U}/dL <1.1 eu/dL P [facility] WBC Auto (Urine sed) [#/Area] 9 High 0 - 5 [facility] VAGINITIS PANEL PCRon 2024 VAGINITIS PANEL PCR BACT. VAGINOSIS DNA Not Detected Qualitative results are reported based on detection and quantitation of targeted organism markers which include: Lactobacillus spp. (L. crispatus and L. jensenii), Gardnerella vaginalis, Atopobium vaginae, Bacterial Vaginosis Associated Bacteria-2 (BVAB-2) and Megasphaera-1. ANDREIA SPECIES DNA Not Detected Andreia species not detected include: C. albicans, C. tropicalis, C. parapsilosis or C. dubliniensis. ANDREIA KRUSEI DNA Not Detected No Andreia krusei detected. ANDREIA GLABRATA DNA Not Detected No Andreia glabrata detected. TRICHOMONAS VAG DNA Not Detected No Trichomonas vaginalis detected. BD MAX Vaginal Panel has not been evaluated for patients under 18 years old. Results for these patients should be reviewed and assessed in accordance with clinical presentation to determine patient diagnosis. Normal [facility] Comment on above: Performed By: #### V PPCR #### [facility] ([facility]) [address] [place] [address] VIR Vaginitis Panel PCROrdered B y: Lacie Duarte on 11-07-2024 Bacterial vaginosis DNA panel RANDALL+probe (Vag fld) Not detected Not Detected [facility] Comment on above: Qualitative results are reported based on detection and quantitation of targeted organism markers which include: Lactobacillus spp. (L. crispatus and L. jensenii), Gardnerella vaginalis, Atopobium vaginae, Bacterial Vaginosis Associated Bacteria-2 (BVAB-2) and Megasphaera-1. C. glabrata DNA RANDALL+probe Ql (Vag fld) Not detected Not Detected [facility] Comment on above: No Andreia glabrata detected. C. krusei DNA RANDALL+probe Ql (Vag fld) Not detected Not Detected [facility] Comment on above: No Andreia krusei de tected. Andreia sp 6 panel RANDALL+probe (Vag fld) Not detected Not Detected [facility] Comment on above: Andreia species not detected include: C. albicans, C. tropicalis, C. parapsilosis or C. dubliniensis. Interpretation and review of laboratory results Normal [facility] T. vaginalis DNA RANDALL+probe Ql (Vag fld) Not detected Not Detected [facility] Comment on above: No Trichomonas vagin reji detected. BD MAX Vaginal Panel has not been evaluated for patients under 18 years old. Results for these patients should be reviewed and assessed in accordance with clinical presentation to determine patient diagnosis. [facility] Unlisted Lab Teston 11-05-19 25 Free Cell Dna SEE SCANNED RESULTS [facility] CMV IGMon 10-26-2024 CYTOMEGALOVIRUS IGM 0.2 AI Normal <0.9 [facility] Comment on above: Order Comment: Intep retation < 0.9 Negative 0.9 - 1.0 Equivocal > 1.0 Positive The following results were obtained with the [employer] 2200 ToRC IgM test. Results obtained from other Railroad Surveyor's assay methods may not be used interchangeably. Performed By: #### C VM #### [facility] ([facility]) [facility] [address] [place] [address] VIR CMV IgMon 10-26-2024 CMV IgM IA Ql 0.2 NINF [facility] Interpretation and review of laboratory results Normal [facility] Intepretation < 0.9 Negative 0.9 - 1.0 Equivocal > 1.0 Positive The following results were obtained with the [employer] 2200 ToRC IgM test. Results obtained from other Railroad Surveyor[employer] assay methods may not be used interchangeably. [facility] CYTOMEGALOVIRUS ANTIBODY, IG Angel 10-26-2024 CYTOMEGALOVIRUS IGG >^8.0 High <0.9 [facility] Comment on above: Order Comment: Intep retation < 0.9 Negative 0.9 - 1.0 Equivocal > 1.0 Positive Performed By: #### C VG #### [facility] ([facility]) [address] [place] [address] VIR Cytomegalovirus antibody, Ig Angel 10-26-2024 CMV IgG IA Qn High NINF [facility] Interpretation and review of laboratory results Abnormal [facility] Intepretation < 0.9 Negative 0.9 - 1.0 Equivocal > 1.0 Positive [facility] Urinalysis macro (dipstick) panel (U)on 10-20-2024 Bilirubin, UA Negative Negative - 4(70) +++ mg/dL [facility] Blood, UA Negative Negative - 50 Nuno/mcL [facility] Clarity, UA Clear [facility] Color, UA Yellow [facility] Glucose, UA Negative Negative - 1999(110) ++++ mg/dL [facility] Interpretation and review of laboratory results Normal [facility] Ketones, UA Negative Negative - 160(16) ++++ mg/dL [facility] Leukocytes, UA Negative Negative - 500+++ Lisa/mcL [facility] Nitrite, UA Negative Negative - Positive [facility] pH, UA 6 5 - 9 [facility] Protein, UA Negative Negative - 1999(20) ++++ mg/dL [facility] Spec Grav, UA 1.015 1 - 1.03 [facility] Urobilinogen, UA 0.2 0.2 - 12 mg/dL [facility] IGP,APTIMA HPV,AGE GDLNon AGE GDLN ACOG TESTING Note . [facility] Comment on above: TESTS RESULT FLAG UN ITS REF RANGE LAB Clinician Provided Cytology Information Source.............Cervix Other.............. No. of containers..01 ThinPrep Vial Age Algo ACOG Jill... FLAG LEGEND: L-Low Normal,H-High Normal,LL-Alert Low,HH-Alert High <-Panic Low,>-Panic High,A-Abnormal,AA-Critical Abnormal Performed at: 01 =G [address] [address] Yuni Barakat MD, IGP, RFX APTIMA HPV ASCU Note . [facility] Comment on above: TESTS RESULT FLAG UN ITS REF RANGE LAB DIAGNOSIS: 02 NEGATIVE FOR INTRAEPITHELIAL LESION OR MALIGNANCY. Specimen adequacy: 02 Satisfactory for evaluation. No endocervical component is identified. An endocervical component is not commonly seen in the patient. Performed by: Mateus Fitzgerald, Alligator Hunter ([facility]) . 02 Note: Note 02 [...] <-Panic Low,>-Panic High,A-Abnormal,AA-Critical Abnormal Performed at: [address] [address] Yuni Barakat MD, Performed at: = - [facility] [id number] Rib Matcher And Fitter: Yuni Barakat MD, Phone: [phone] Performed at: [facility] [address] [id number] Rib Matcher And Fitter: Yuni Barakat MD, Phone: [phone] SPATULA-ALONE CERVIX [facility] RECURRENT VAGINITIS (HTRX)on 09-24-2024 ATOPOBIUM VAGINAE 0 [facility] ATOPOBIUM VAGINAE Not detected [facility] BVAB 2,3 (BACTERIAL VAGINOSIS ASSOCIATED BACTERIA 2, 3); MOBILUNCUS SPP 0 [facility] BVAB 2,3 (BACTERIAL VAGINOSIS ASSOCIATED BACTERIA 2, 3); MOBILUNCUS SPP Not detected [facility] ANDREIA ALBICANS, PARAPSILOSIS, TROPICALIS 0 [facility] ANDREIA ALBICANS, PARAPSILOSIS, TROPICALIS Not detected [facility] ANDREIA GLABRATA 0 [facility] ANDREIA GLABRATA Not detected [facility] ANDREIA KRUSEI 0 [facility] ANDREIA KRUSEI Not detected [facility] CHLAMYDIA TRACHOMATIS 0 [facility] CHLAMYDIA TRACHOMATIS Not detected [facility] GARDNERELLA VAGINALIS 32.818 Abnormal [facility] GARDNERELLA VAGINALIS Detected Abnormal [facility] Interpretation and review of laboratory results Abnormal [facility] MEGASPHAERA (TYPES 1, 2) 0 [facility] MEGASPHAERA (TYPES 1, 2) Not detected [facility] MYCOPLASMA GENITALIUM 0 [facility] MYCOPLASMA GENITALIUM Not detected N [facility] NEISSERIA GONORRHOEAE 0 [facility] NEISSERIA GONORRHOEAE Not detected [facility] TRICHOMONAS VAGINALIS 0 [facility] TRICHOMONAS VAGINALIS Not detected N [facility] Urinalysis macro (dipstick) panel (U)on 09-23-2024 Bilirubin, UA Negative Negative - 4(70) +++ mg/dL [facility] Blood, UA Negative Negative - 50 Nuno/mcL [facility] Clarity, UA Clear [facility] Color, UA Yellow [facility] Glucose, UA Negative Negative - 1999(110) ++++ mg/dL [facility] Interpretation and review of laboratory results Normal [facility] Ketones, UA Negative Negative - 160(16) ++++ mg/dL [facility] Leukocytes, UA Negative Negative - 500+++ Lisa/mcL [facility] Nitrite, UA Negative Negative - Positive [facility] pH, UA 6 5 - 9 [facility] Protein, UA Negative Negative - 1999(20) ++++ mg/dL [facility] Spec Grav, UA 1.015 1 - 1.03 [facility] Urobilinogen, UA 0.2 0.2 - 12 mg/dL [facility] Urinalysis macro (dipstick) panel (U)on 09-01-2024 Bilirubin, UA Negative Negative - 4(70) +++ mg/dL [facility] Blood, UA Negative Negative - 50 Nuno/mcL [facility] Clarity, UA Clear [facility] Color, UA Yellow [facility] Glucose, UA Negative Negative - 1999(110) ++++ mg/dL [facility] Interpretation and review of laboratory results Normal [facility] Ketones, UA Negative Negative - 160(16) ++++ mg/dL [facility] Leukocytes, UA Negative Negative - 500+++ Lisa/mcL [facility] Nitrite, UA Negative Negative - Positive [facility] pH, UA 5 5 - 9 [facility] Protein, UA Negative Negative - 1999(20) ++++ mg/dL [facility] Spec Grav, UA 1.02 1 - 1.03 [facility] Urobilinogen, UA 1.0 0.2 - 12 mg/dL [facility] Drug Screen, Urineon 025 Amphetamine/Methamphe tamine Negative [facility] Barbiturates Negative [facility] Benzodiazepines Negative [facility] Cocaine Metabolite Negative [facility] Methadone Negative [facility] Opiates Negative [facility] Oxycodone Negative [facility] Phencyclidine Negative [facility] Thc Marijuana, Urine Negative [facility] HIV 1&2 AB/AG Screen (P24 AG )on 08-13-2024 HIV 1&2 AB/AG Non-Reactive [facility] Hepatitis B surface antigeno n 08-13-2024 Hepatitis B Surface Antigen Negative [facility] Hepatitis C(HCV) Ab w/ Refle x to PCRon 08-13-2024 HCV Ab Ql (S) Non-Reactive [facility] No Panel InformationOrdered By: Geeta Jacobs on 08-13-2024 [facility] Syphilis Total(Unknown Syphi lis Status)on 08-13-2024 Syphilis Non-Reactive [facility] Type and screenOrdered By: Maribel Jacobs on 08-13-2024 Abo/Rh(D) Positive [facility] US OB TRANSVAGINALon 025 US OB TRANSVAGINAL EXAM: US OB TRANSVAG INAL HISTORY: Dating. COMPARISON: None available. TECHNIQUE: Two-dimensional transvaginal grayscale ultrasound imaging of the pelvis was performed. Color Doppler evaluation of the ovaries was also performed. FINDINGS: The uterus demonstrates a normal homogeneous echotexture. The cervix measures 3.6 cm in length and the cervical os is closed. The right ovary measures 3.1 x 1.6 x 2.4 cm and demonstrates a normal echotexture. There is normal color Doppler flow. The left ovary measures 1.9 x 1.6 x 1.8 cm and demonstrates a normal echotexture. There is normal color Doppler flow. No fluid is present within the cul-de-sac. There is a monochorionic/diamniotic, live twin intrauterine gestation identified. There is no subchorionic hemorrhage visualized. Two yolk sacs are visualized. Baby A: heart rate of 174 beats per minute and a crown-rump length measurement of 2.3 cm, correlating to a gestational age of 9 weeks 0 days (+/- 6 days). Baby B: heart rate of 175 beats per minute and a crown-rump length measurement of 2.4 cm, correlating to a gestational age of 9 weeks 0 days (+/-6 days). IMPRESSION: 1. Monochorionic/diamniotic twin, live intrauterine gestation 9 weeks, 3 days by LMP. Baby A's ultrasound measurements correlate with a gestational age of 9 weeks 0 days (+/- 6 days). Baby B's ultrasound measurements correlate with a gestational age of 9 weeks 0 days (+/- 6 days). VICTOR M by today's ultrasound is 03/18/2025. 2. Normal color Doppler evaluation of the bilateral ovaries. Electronically Signed:Electronically signed by JERRY ELI II, MD, PHD at 13-Aug-2024 08:36:36 PM [facility] Normal Not Available Comment on above: Order Comment: US OB TRANSVAGINAL No LMP recorded. IGP,APTIMA HPV,AGE GDLNon AGE GDLN ACOG TESTING Note . [facility] Comment on above: TESTS RESULT FLAG UN ITS REF RANGE LAB Clinician Provided Cytology Information Source.............Cervix;Endocervix No. of containers..01 ThinPrep Vial Age Algo ACOG Jill... FLAG LEGEND: L-Low Normal,H-High Normal,LL-Alert Low,HH-Alert High <-Panic Low,>-Panic High,A-Abnormal,AA-Critical Abnormal Performed at: 01 [facility] [address] Yuni Barakat MD, IGP, RFX APTIMA HPV ASCU Note . [facility] Comment on above: TESTS RESULT FLAG UN ITS REF RANGE LAB DIAGNOSIS: 02 NEGATIVE FOR INTRAEPITHELIAL LESION OR MALIGNANCY. Specimen adequacy: 02 Satisfactory for evaluation. Endocervical and/or squamous metaplastic cells (endocervical component) are present. Performed by: 02 Zak Coyle, [place] Worker (ASCP) . 02 Note: Note 02 The Pap [...] <-Panic Low,>-Panic High,A-Abnormal,AA-Critical Abnormal Performed at: [address] [place] [address] Yuni Barakat MD, Performed at: = - [facility], [place] [id number] Rib Matcher And Fitter: Yuni Barakat MD, Phone: [phone] Performed at: [facility] [address] [id number] Rib Matcher And Fitter: Yuni Barakat MD, Phone: [phone] BRUSH-SPATULA CERVIX ENDOCERVIX [facility] CBC AUTO DIFFon 09-04-2022 BASO # 0.0 103/ul Normal 0.0-0.1 [facility] Comment on above: Performed By: #### C BC #### [facility] [address] [place] [address] Dr. Jinny Palomino Basophils/100 WBC (Bld) 0.2 % Normal 0.2-2.0 [facility] Comment on above: Performed By: #### C BC #### [facility] [address] [place] [address] Dr. Jinny Palomino EO # 0.1 103/ul Normal 0.0-0.7 [facility] Comment on above: Performed By: #### C BC #### [facility] [address] [place] [address] Dr. Jinny Palomino Eosinophils/100 WBC (Bld) 1.9 % Normal 0.9-7.0 [facility] Comment on above: Performed By: #### C BC #### [facility] [address] [place] [address] Dr. Jinny Palomino Erythrocyte distribution width (RBC) [Ratio] 12.6 % Normal 11.0-15.0 [facility] Comment on above: Performed By: #### C BC #### [facility] [address] [place] [address] Dr. Jinny Palomino Hematocrit (Bld) [Volume fraction] 35.7 % Critically low 36.0-48.0 [facility] Comment on above: Performed By: #### C BC #### [facility] [address] [place] [address] Dr. Jinny Palomino Hemoglobin (Bld) [Mass/Vol] 12.3 g/dL Normal 12.0-16.0 [facility] Comment on above: Performed By: #### C BC #### [facility] [address] [place] [address] Dr. Jinny Palomino IG # 0.01 10e3/ul Normal 0.00-0.03 [facility] Comment on above: Performed By: #### C BC #### [facility] [address] [place] [address] Dr. Jinny Palomino IG % 0.2 % Normal 0.0-0.5 [facility] Comment on above: Performed By: #### C BC #### [facility] [address] [place] [address] Dr. Jinny Palomino LYMPH # 2.2 103/ul Normal 1.2-3.8 [facility] Comment on above: Performed By: #### C BC #### [facility] [address] [place] [address] Dr. Jinny Palomino Lymphocytes/100 WBC (Bld) 37.2 % Normal 20.5-60.0 [facility] Comment on above: Performed By: #### C BC #### [facility] [address] [place] [address] Dr. Jinny Palomino MANUAL DIFF REQ NO Normal [facility] Comment on above: Performed By: #### C BC #### [facility] [address] [place] [address] Dr. Jinny Palomino MCH (RBC) [Entitic mass] 29.1 pg Normal 26.7-34.0 [facility] Comment on above: Performed By: #### C BC #### [facility] [address] [place] [address] Dr. Jinny Palomino MCHC (RBC) [Mass/Vol] 34.5 g/dL Normal 29.9-35.2 [facility] Comment on above: Performed By: #### C BC #### [facility] [address] [place] [address] Dr. Jinny Palomino MCV (RBC) [Entitic vol] 84.6 fL Normal 81.0-99.0 [facility] Comment on above: Performed By: #### C BC #### [facility] [address] [place] [address] Dr. Jinny Palomino MONO # 0.6 103/ul Normal 0.3-0.8 [facility] Comment on above: Performed By: #### C BC #### [facility] [address] [place] [address] Dr. Jinny Palomino Monocytes/100 WBC (Bld) 9.9 % Normal 1.7-12.0 [facility] Comment on above: Performed By: #### C BC #### [facility] [address] [place] [address] Dr. Jinny Palomino NEUT # 3.0 103/ul Normal 1.4-6.5 [facility] Comment on above: Performed By: #### C BC #### [facility] [address] [address] [address] Jinny Palomino Neutrophils/100 WBC (Bld) 50.6 % Normal 43.0-75.0 [facility] Comment on above: Performed By: #### C BC #### [facility] [address] [place] [address] Dr. Jinny Palomino Platelet mean volume (Bld) [Entitic vol] 9.2 fL Critically low 9.5-13.5 [facility] Comment on above: Performed By: #### C BC #### [facility] [address] [place] [address] Dr. Jinny Palomino PLT 271 103/ul Normal 150-450 [facility] Comment on above: Performed By: #### C BC #### [facility] [address] [place] [address] Dr. Jinny Palomino RBC 4.22 106/ul Normal 4.20-5.40 [facility] Comment on above: Performed By: #### C BC #### [facility] [facility] [address] [place] [address] Dr. Jinny Palomino WBC 5.8 103/ul Normal 4.0-11.0 [facility] Comment on above: Performed By: #### C BC #### [facility] [address] [place] [address] Dr. Jniny Palomino FREE THYROXINE INDEX T7on FTI 2.87 Normal 1.30-4.50 [facility] Comment on above: Performed By: #### T SH, CMP, T7 #### [facility] [address] [place] [address] Dr. Jinny Palomino T3U 35.0 % Normal 30.0-39.0 [facility] Comment on above: Performed By: #### T SH, CMP, T7 #### [facility] [address] [place] [address] Dr. Jinny Palomino T4 [Mass/Vol] 8.20 ug/dL Normal 4.80-13.90 [facility] Comment on above: Performed By: #### T SH, CMP, T7 #### [facility] [address] [place] [address] Dr. Jinny Palomino PROF 14(COMP METB)on 023 Albumin [Mass/Vol] 3.8 g/dL Normal 3.4-5.0 [facility] Comment on above: Performed By: #### T SH, CMP, T7 #### [facility] [address] [place] [address] Dr. Jinny Palomino Albumin/Globulin [Mass ratio] 0.9 {ratio} Normal [facility] Comment on above: Performed By: #### T SH, CMP, T7 #### [facility] [address] [place] [address] Dr. Jinny Palomino ALP [Catalytic activity/Vol] 68 U/L Normal 46-116 [facility] Comment on above: Performed By: #### T SH, CMP, T7 #### [facility] [address] [place] [address] Dr. Jinny Palomino ALT [Catalytic activity/Vol] 34 U/L Normal 14-59 [facility] Comment on above: Performed By: #### T SH, CMP, T7 #### [facility] [address] [place] [address] Dr. Jinny Palomino Anion gap [Moles/Vol] 11.9 mmol/L Normal [facility] Comment on above: Performed By: #### T SH, CMP, T7 #### [facility] [address] [place] [address] Dr. Jinny Palomino AST [Catalytic activity/Vol] 16 U/L Normal 15-37 [facility] Comment on above: Performed By: #### T SH, CMP, T7 #### [facility] [address] [place] [address] Dr. Jinny Palomino Bilirubin [Mass/Vol] 0.2 mg/dL Normal 0.2-1.0 [facility] Comment on above: Performed By: #### T LIV CMP, T7 #### [facility] [address] [place] [address] Dr. Jinny Palomino Calcium [Mass/Vol] 9.3 mg/dL Normal 8.5-10.1 [facility] Comment on above: Performed By: #### T LIV CMP, T7 #### [facility] [address] [place] [address] Dr. Jinny Palomino Chloride [Moles/Vol] 104 mmol/L Normal 98-107 [facility] Comment on above: Performed By: #### T LIV CMP, T7 #### [facility] [address] [place] [address] Dr. Jinny Palomino CO2 [Moles/Vol] 24.7 mmol/L Normal 21.0-32.0 [facility] Comment on above: Performed By: #### T LIV CMP, T7 #### [facility] [address] [place] [address] Dr. Jinny Palomino Creatinine [Mass/Vol] 0.58 mg/dL Normal 0.55-1.02 [facility] Comment on above: Performed By: #### T LIV CMP, T7 #### [facility] [address] [place] [address] Dr. Jinny Palomino EGFR-AF LAO >60 Normal >=60 [facility] Comment on above: Performed By: #### T LIV CMP, T7 #### [facility] [address] [place] [address] Dr. Jinny Palomino EGFR-NON AF LAO >60 Normal >=60 [facility] Comment on above: Performed By: #### T LIV CMP, T7 #### [facility] [address] [place] [address] Dr. Jinny Palomino Globulin (S) [Mass/Vol] 4.0 g/dL Normal [facility] Comment on above: Performed By: #### T LIV CMP, T7 #### [facility] [address] [place] [address] Dr. Jinny Palomino Glucose [Mass/Vol] 88 mg/dL Normal 74-106 [facility] Comment on above: Performed By: #### T ABIGAIL PECK, T7 #### [facility] [address] [place] [address] Dr. Jinny Palomino Potassium [Moles/Vol] 3.6 mmol/L Normal 3.5-5.1 [facility] Comment on above: Performed By: #### Robin PECK CMP, T7 #### [facility] [address] [place] [address] Dr. Jinny Palomino Protein [Mass/Vol] 7.8 g/dL Normal 6.4-8.2 [facility] Comment on above: Performed By: #### Robin PECK CMP, T7 #### [facility] [address] [place] [address] Dr. Jinny Palomino Sodium [Moles/Vol] 137 mmol/L Normal 136-145 [facility] Comment on above: Performed By: #### Robin PECK CMP, T7 #### [facility] [address] [place] [address] Dr. Jinny Palomino Urea nitrogen [Mass/Vol] 10.0 mg/dL Normal 7.0-18.0 [facility] Comment on above: Performed By: #### Robin PECK CMP, T7 #### [facility] [address] [place] [address] Dr. Jinny Palomino Urea nitrogen/Creatinine [Mass ratio] 17.2 mg/mg Normal [facility] Comment on above: Performed By: #### T ABIGAIL PECK, T7 #### [facility] [address] [place] [address] Dr. Jinny Palomino TSHon 09-04-2022 TSH 2.195 uIU/mL Normal 0.358-3.740 [facility] Comment on above: Performed By: #### Robin PECK CMP, T7 #### [facility] [address] [place] [address] Dr. Jinny Palomino VITAMIN D 25 OHon 09-04-2022 VIT D 25-OH 40.3 ng/mL Normal [facility] Comment on above: Performed By: #### V ITAD #### [facility] [address] [place] [address] Dr. Jinny Palomino VIT D RANGES SEE BELOW Normal [facility] Comment on above: Result Comment: <20 ng/mL Vit D deficient 20 - <30 ng/mL Vit D insufficient 30 - 100 ng/mL Vit D sufficient >100 ng/mL Potential Toxicity Performed By: #### V ITAD #### [facility] [address] [place] [address] Dr. Jinny Palomino GLYCOHEMOGLOBIN A1Con 2022 ADA RECOMMENDATION SEE BELOW Normal [facility] Comment on above: Result Comment: ADA RECOMMENDED LIMIT 4.0 - 6.0 ADA THERAPEUTIC TARGET < 7.0 ACTION SUGGESTED > 7.0 Performed By: #### D ATA1C #### [facility] [address] [place] [address] Dr. Jinny Palomino Glucose [Mass/Vol] 105 mg/dL Normal [facility] Comment on above: Performed By: #### D ATA1C #### [facility] [address] [place] [address] Dr. Jinny Palomino HbA1c (Bld) [Mass fraction] 5.3 % Normal 4.5-6.2 [facility] Comment on above: Performed By: #### D ATA1C #### [facility] [address] [place] [address] Dr. Jinny Palomino US Pelvic Complete w/Transva [...] by CELSO GONZALEZ on 06/18/2022 1404 Normal [facility] Radiology Special Procedure Tech .Interpretation:on HCV Ab IA Ql Comment Invalid Interpretation Code [facility] Comment on above: Result Comment: Wyatt tisapna Not infected with HCV, unless recent infection is suspected or other evidence exists to indicate HCV infection. Performed at: [address] [id number] PhD Preet Blevins Performed By: #### 8 [id number], [id number], [id number], 3973215, [id number], [id number] ####[facility] [address] [place] [address] HCV Antibody RFX to Quant PC José Luis 02-01-2022 HCV Ab Signal/Cutoff IA [Rel units/Vol] {ratio} Invalid Interpretation Code 0.0-0.9 [facility] Comment on above: Result Comment: Perf ormed at: [address] [id number] PhD Preet Blevins Performed By: #### 8 [id number], [id number], 3264072, [id number], [id number], [id number] ####[facility] [address] [place] [address] Hep Bs Abon 02-01-2022 HBV surface Ab Ql (S) Reactive Invalid Interpretation Code [facility] Comment on above: Result Comment: Non Reactive: Inconsistent with immunity, less than 10 mIU/mL Reactive: Consistent with immunity, greater than 9.9 mIU/mL Performed at: [address] [id number] PhD Preet Blevins Performed By: #### 8 [id number], [id number], 6086916, [id number], [id number], [id number] #### [facility] [address] [place] [address] Hep Bs Agon 02-01-2022 HBV surface Ag IA Ql Negative Invalid Interpretation Code Negative [facility] Comment on above: Result Comment: Perf ormed at: [id number] [place], [place] [id number] PhD Preet Blevins Performed By: #### 8 [id number], [id number], 5934446, 4607433, [id number], [id number] ####[facility] [address] [place] [address] Jhony 01-30-2022 ALT No additional P-5'-P [Catalytic activity/Vol] 16 Int._Unit/L Normal 6-46 [facility] Comment on above: Performed By: #### 8 [id number], [id number], 9111287, 7879250, [id number], [id number] #### [facility] [address] [place] [address] Consent for Treatmenton Consent for Treatment [id number]#1.00CD:12 7 Normal [facility] HIV-1/2 Ag/Ab Comboon 2021 HIV 1+2 Ab and HIV1 p24 Ag IA.rapid Nom (S/P/Bld) Negative Normal Negative [facility] Comment on above: Performed By: #### 8 [id number], [id number], 7593973, 0694597, [id number], 1756541 #### [facility] [address] [place] [address] HIV 1+2 Ab+HIV1 p24 Ag IA Ql Non-Reactive Normal Non-Reactiv e [facility] Comment on above: Performed By: #### 8 [id number], [id number], 1651035, 8753413, [id number], 7493946 #### [facility] [address] [place] [address] HIV Combo Internal Control Line Reactive Normal Reactive [facility] Comment on above: Performed By: #### 8 [id number], [id number], 8826966, 4584923, [id number], 5781078 #### [facility] [address] [place] [address] HIV-1/2 Ag/Ab Combo Negative for HIV-1 a nd/or HIV-2 antibodies and HIV-1 p24 antigen. Normal Negative [facility] Physician Orderon 01-30-2022 Physician Order [id number]#1.00CD:1 27 Normal [facility] PAP ACOG PANEL 2: 21 to 29on 12-29-2021 . . Normal [facility] Comment on above: Performed By: #### 4 [id number] #### [facility] [address] [place] [address] Dr. Jinny Palomino Age Gdln ACOG Testing - [facility] Comment on above: Performed By: #### 4 [id number] #### [facility] [address] [place] [address] Dr. Jinny Palomino DIAGNOSIS: Comment [facility] Comment on above: Result Comment: NEGA TIVE FOR INTRAEPITHELIAL LESION OR MALIGNANCY. Performed By: #### 4 [id number] #### [facility] [address] [place] [address] Dr. Jinny Palomino Methodology: Comment [facility] Comment on above: Result Comment: This liquid based ThinPrep(R) pap test was screened with the use of an image guided system. Performed By: #### 4 [id number] #### [facility] [address] [place] [address] Dr. Jinny Palomino Note: Comment [facility] Comment on above: Result Comment: The Pap smear is a screening test designed to aid in the detection of premalignant and malignant conditions of the uterine cervix. It is not a diagnostic procedure and should not be used as the sole means of detecting cervical cancer. Both false-positive and false-negative reports do occur. . Performed By: #### 4 [id number] #### [facility] [address] [place] [address] Dr. Jinny Palomino Performed by: Comment [facility] Comment on above: Result Comment: Allison Coyle, [place] Worker (ASCP) Performed By: #### 4 [id number] #### [facility] [address] [place] [address] Dr. Jinny Palomino Reflex Criteria: Comment Normal [facility] Comment on above: Result Comment: The HPV DNA reflex criteria were not met with this specimen result therefore, no HPV testing was performed. . Performed By: #### 4 [id number] #### [facility] [address] [place] [address] Dr. Jinny Palomino Specimen adequacy: Comment Normal [facility] Comment on above: Result Comment: Sati sfactory for evaluation. Endocervical and/or squamous metaplastic cells (endocervical component) are present. Performed By: #### 4 [id number] #### [facility] [address] [place] [address] Dr. Jinny Palomino CHLAMYDIA/GONOCOCCUS RANDALL (SW AB/URINE/PAPon 12-28-2021 Chlamydia trachomatis, RANDALL Negative Normal Negative [facility] Comment on above: Performed By: #### C T/NGNA #### [facility] [address] [place] [address] Dr. Jinny Palomino Neisseria gonorrhoeae, RANDALL Negative Normal Negative [facility] Comment on above: Performed By: #### C T/NGNA #### [facility] [address] [place] [address] Dr. Jinny Palomino VAGINITIS/VAGINOSIS DNA PROB Prosper 12-27-2021 Andreia species Negative Normal Negative [facility] Comment on above: Performed By: #### V AGINT #### [facility] [address] [place] [address] Dr. Jinny Palomino Gardnerella vaginalis Negative Normal Negative [facility] Comment on above: Performed By: #### V AGINT #### [facility] [address] [place] [address] Dr. Jinny Palomino Trichomonas vaginalis Negative Normal Negative [facility] Comment on above: Performed By: #### V AGINT #### [facility] [address] [place] [address] Dr. Jinny Palomino Hep Bs Abon 2021 HBV surface Ab Ql (S) Reactive Invalid Interpretation Code [facility] Comment on above: Result Comment: Non Reactive: Inconsistent with immunity, less than 10 mIU/mL Reactive: Consistent with immunity, greater than 9.9 mIU/mL Performed at: [address] [id number] PhD Preet Blevins Performed By: #### 1 [id number], [id number], [id number], [id number] #### [facility] [address] [place] [address] Measles/Mumps/Rubella Immuni tyon 2021 MeV IgG IA Qn (S) 59.4 A unit/mL Invalid Interpretation Code Immune >16.4 [facility] Comment on above: Result Comment: Nega tive <13.5 Equivocal 13.5 - 16.4 Positive >16.4 Presence of antibodies to Rubeola is presumptive evidence of immunity except when acute infection is suspected. Performed By: #### 1 [id number], [id number], 4366482, [id number] #### [facility] [address] [place] [address] MuV IgG IA Qn (S) 52.4 A unit/mL Invalid Interpretation Code Immune >10.9 [facility] Comment on above: Result Comment: Nega tive <9.0 Equivocal 9.0 - 10.9 Positive >10.9 A positive result generally indicates past exposure to Mumps virus or previous vaccination. Performed at: [facility] [address] [place], [place] [id number] PhD Preet Blevins Performed By: #### 1 [id number], 916683928, 8676842, [id number] #### [facility] [address] [place] [address] Rubella virus IgG Qn (S) [IU]/mL Low Immune >0.99 [facility] Comment on above: Result Comment: Non- immune <0.90 Equivocal 0.90 - 0.99 Immune >0.99 Performed By: #### 1 [id number], 013268595, 9458148, [id number] #### [facility] [address] [place] [address] Quantiferon-TB Plus (Client Incubated)on 2021 Gamma interferon background IA Qn (Bld) 0.03 International_Unit/mL Invalid Interpretation Code [facility] Comment on above: Performed By: #### 1 7014308, [id number], 2103180, [id number] #### [facility] [address] [place] [address] M. tuberculosis stim IFN-g by CD4+ CD8+ T-cells corrected for background Qn (Bld) 0.06 International_Unit/mL Invalid Interpretation Code [facility] Comment on above: Performed By: #### 1 [id number], 361286258, 5726248, [id number] #### [facility] [address] [place] [address] M. tuberculosis stim IFN-g by CD4+ T-cells corrected for background Qn (Bld) 0.04 International_Unit/mL Invalid Interpretation Code [facility] Comment on above: Performed By: #### 1 [id number], 258856937, 1614911, [id number] #### [facility] [address] [place] [address] M. tuberculosis stim IFN-g Ql (Bld) [Interp] Negative Invalid Interpretation Code Negative [facility] Comment on above: Result Comment: The specimen received for QuantiFERON testing was incubated by the ordering institution. Specific procedures outlined in our Directory of Services and in the package insert for the QuantiFERON Gold (In Tube) test must be followed to enable for proper stimulation of cells for the production of interferon gamma. Chemiluminescence immunoassay methodology Performed at: [facility] [address] [place] [id number] [phone] PhD Preet Blevins Performed By: #### 1 [id number], 926906436, 2943335, [id number] #### [facility] [address] [place] [address] Mitogen stimulated gamma interferon Qn (Bld) >10.00 Invalid Interpretation Code [facility] Comment on above: Performed By: #### 1 [id number], 909075070, 5600323, [id number] #### [facility] [address] [place] [address] Service comment (Unsp spec) [Interp] Comment Invalid Interpretation Code [facility] Comment on above: Result Comment: The QuantiFERON-TB Gold Plus result is determined by subtracting the Nil value from either TB antigen (Ag) tube. The mitogen tube serves as a control for the test. Performed By: #### 1 [id number], [id number], 7326680, [id number] #### [facility] [address] [place] [address] Varic IgGon 2021 VZV IgG IA Qn (S) 236 Invalid Interpretation Code Immune >165 [facility] Comment on above: Result Comment: Nega tive <135 Equivocal 135 - 165 Positive >165 A positive result generally indicates exposure to the pathogen or administration of specific immunoglobulins, but it is not indication of active infection or stage of disease. Performed at: [facility] [id number] PhD Preet Blevins Performed By: #### 1 [id number], [id number], 9224319, [id number] #### [facility] [address] [place] [address] Consent for Treatmenton 07-24 Consent for Treatment [id number]#[id number]:12 7 Normal [facility] Physician Orderon 08-03-2021 Physician Order [id number]#1.00CD:1 27 Normal [facility] Pneumococcal Abs, IgG (23 Se rotypes)on 01-15-2018 Pneumo Serotyp 10A, IgG (PNX) 16.60 ug/mL [facility] Comment on above: Performed By: #### P NEM2 ####[id number] [place] [address] Pneumo Serotyp 11A, IgG (PNX) 8.89 ug/mL [facility] Comment on above: Performed By: #### P NEM2 ####[id number] [place] [address] Pneumo Serotyp 12F, IgG (PNX) 3.13 ug/mL Normal [facility] Comment on above: Performed By: #### P NEM2 ####[id number] [place] [address] Pneumo Serotyp 15B, IgG (PNX) 27.97 ug/mL Normal [facility] Comment on above: Performed By: #### P NEM2 ####[id number] [place] [address] Pneumo Serotyp 17F, IgG (PNX) 18.01 ug/mL Normal [facility] Comment on above: Performed By: #### P NEM2 ####[id number] [place] [address] Pneumo Serotyp 18C, IgG (P7,P13,PNX) 3.28 ug/mL Normal [facility] Comment on above: Performed By: #### P NEM2 ####[id number] [place] [address] Pneumo Serotyp 19A, IgG (P13,PNX) 5.63 ug/mL Normal [facility] Comment on above: Performed By: #### P NEM2 ####[id number] [place] [address] Pneumo Serotyp 19F, IgG (P7,P13,PNX) 0.73 ug/mL Normal [facility] Comment on above: Performed By: #### P NEM2 ####[id number] [place] [address] Pneumo Serotyp 2, IgG (PNX) 13.09 ug/mL Normal [facility] Comment on above: Performed By: #### P NEM2 ####[id number] [place] [address] Pneumo Serotyp 20, IgG (PNX) 4.93 ug/mL Normal [facility] Comment on above: Performed By: #### P NEM2 ####[id number] [place] [address] Pneumo Serotyp 22F, IgG (PNX) 1.92 ug/mL Normal [facility] Comment on above: Performed By: #### P NEM2 ####[id number] [place] [address] Pneumo Serotyp 23F, IgG (P7,P13,PNX) 2.05 ug/mL Normal [facility] Comment on above: Performed By: #### P NEM2 ####[id number] [place] [address] Pneumo Serotyp 33F, IgG (PNX) 2.40 ug/mL Normal [facility] Comment on above: Performed By: #### P NEM2 ####[id number] [place] [address] Pneumo Serotype 1, IgG (P13,PNX) 10.98 ug/mL Normal [facility] Comment on above: Performed By: #### P NEM2 ####[id number] [place] [address] Pneumo Serotype 14, IgG (P7,P13,PNX) 1.63 ug/mL Normal [facility] Comment on above: Performed By: #### P NEM2 ####[id number] [place] [address] Pneumo Serotype 3, IgG (P13,PNX) 2.46 ug/mL Normal [facility] Comment on above: Performed By: #### P NEM2 ####[id number] [place] [address] Pneumo Serotype 4, IgG (P7,P13,PNX) 4.97 ug/mL Normal [facility] Comment on above: Performed By: #### P NEM2 ####[id number] [place] [address] Pneumo Serotype 5, IgG (P13,PNX) 6.58 ug/mL Normal [facility] Comment on above: Performed By: #### P NEM2 ####[id number] [place] [address] Pneumo Serotype 6B, IgG (P7,P13,PNX) 0.37 ug/mL Normal [facility] Comment on above: Performed By: #### P NEM2 ####[id number] [place] [address] Pneumo Serotype 7F, IgG (P13,PNX) 14.71 ug/mL Normal [facility] Comment on above: Performed By: #### P NEM2 ####[id number] [place] [address] Pneumo Serotype 8, IgG (PNX) 7.28 ug/mL Normal [facility] Comment on above: Performed By: #### P NEM2 ####[id number] [place] [address] Pneumo Serotype 9N, IgG (PNX) 1.94 ug/mL Normal [facility] Comment on above: Performed By: #### P NEM2 ####[id number] [place] [address] Pneumo Serotype 9V, IgG (P7,P13,PNX) 2.30 ug/mL Normal [facility] Comment on above: Performed By: #### P NEM2 ####[id number] [place] [address] Pneumo Serotype Interp See Note Normal [facility] Comment on above: Result Comment: INTE RPRETIVE [...] protection(2).References:1. Sherry BUENROSTRO, Stanley JW, Jordy X, Prince OLEA, Clemente NULL.Multilaboratory assessment of threshold versus fold-changealgorithms for minimizing analytical variability inmultiplexed pneumococcal IgG measurements. Clin VaccineImmunol. 2014;21(7):982-8.2. Sherry BUENROSTRO, Clemente NULL. Use and Clinical Interpretation ofPneumococcal Antibody Measurements in the Evaluation ofHumoral Immune Function. Clin Vaccine Immunol.2015;22(2):148-152.Test developed and characteristics determined by [employer]. See Compliance Statement B: [employer],[address] [place] [id number] [employer], Vishnu Queen MD - Lab. Director Performed By: #### P NEM2 ####[id number] [place] [address] Complement Act, Totalon 07- Complement Act, Total 137 Units Normal 60-144 [facility] Comment on above: Result Comment: INTE RPRETIVE INFORMATION: Complement Activity, Total EIA59 Units or less .......... [id number] Units .............. [id number] Units or greater ....... HighPerformed by [employer],[address] [place] [id number] szb.[employer], Vishnu Queen MD - Lab. Director Performed By: #### [id number] ####[id number] [place] [address] Diphtheria/Tetanus IgGon Diptheria Ab, IgG 4.8 IU/mL Normal [facility] Comment on above: Result Comment: INTE RPRETIVE [...] usually adequate.Test developed and characteristics determined by [employer]. See Compliance Statement B: [employer]/CS Performed By: #### [id number] ####[id number] [place] [id number] Tetanus Ab, IgG 5.2 IU/mL [facility] Comment on above: Result Comment: INTE RPRETIVE [...] is usuallyadequate.Test developed and characteristics determined by [employer]. See Compliance Statement B: [employer]/CSPerformed by [employer],[address] [place] [address] jor.[employer], Vishnu Queen MD - Lab. Director Performed By: #### [id number] ####[id number] [place] [address] H. Influenzae B, IgGon 11-25 H. Influenzae B, IgG 4.1 ug/mL Normal [facility] Comment on above: Result [...] a non-responder.Test developed and characteristics determined by [facility]. See Compliance Statement B: [employer]/CSPerformed by [employer],[address] [place] [address] wpa.[employer], Vishnu Queen MD - Lab. Director Performed By: #### [id number] ####[id number] [place] [address] IgG Subclasseson 11-25-2017 IgG mass conc 1130 mg/dL Normal 700-1600 [facility] Comment on above: Result Comment: MONO CLONAL PROTEINS MAY CAUSE FALSELY LOWRESULTS IN THIS ASSAY. SERUM PROTEINELECTROPHORESIS SHOULD BE DONE THEFIRST TEST TO EVALUATE MONOCLONAL GAMMOPATHY. IgG Subclass 1 841 mg/dL Normal 490-1140 [facility] IgG Subclass 2 288 mg/dL Normal 150-640 [facility] IgG Subclass 3 55 mg/dL Normal 11-85 [facility] IgG Subclass 4 10 mg/dL Normal 3-200 [facility] Comment on above: Result Comment: DUE TO INHERENT IMPRECISION OF METHODS, THESUM OF COMPONENTS MAY DIFFER FROM TOTAL IGGBY MUCH 20%. Immunoglobulin Qnt (IgA, IgG , IgM)on 11-25-2017 IgA mass conc 241 mg/dL Normal 70-400 [facility] Comment on above: Result Comment: MONO CLONAL PROTEINS MAY CAUSE FALSELY LOWRESULTS IN THIS ASSAY. SERUM PROTEINELECTROPHORESIS SHOULD BE DONE THEFIRST TEST TO EVALUATE MONOCLONAL GAMMOPATHY. IgM mass conc 60 mg/dL Normal 40-230 [facility] Comment on above: Result Comment: MONO CLONAL [...] 11/25/2017 3:23:22 PM Vitals Vital Signs Recorded: [id number] 03:63SBAsbemr8 ft 2 [id number] lb BMI Nqkgyurqig52.61BSA Calculated1.64 Physical ExamGeneral appearance: No acute distress. [...] Nov 25 2017 6:08PM EST (Author) [facility] P[facility] Abs, IgG (23 Se rotypes)on 11-25-2017 Pneumo Serotyp 10A, IgG (PNX) 3.18 ug/mL Normal [facility] Comment on above: Performed By: #### P NEM2 ####[id number] [place] [address] Pneumo Serotyp 11A, IgG (PNX) 1.78 ug/mL Normal [facility] Comment on above: Performed By: #### P NEM2 ####[id number] [place] [address] Pneumo Serotyp 12F, IgG (PNX) 0.25 ug/mL Normal [facility] Comment on above: Performed By: #### P NEM2 ####[id number] [place] [address] Pneumo Serotyp 15B, IgG (PNX) 4.19 ug/mL Normal [facility] Comment on above: Performed By: #### P NEM2 ####[id number] [place] [address] Pneumo Serotyp 17F, IgG (PNX) 3.99 ug/mL Normal [facility] Comment on above: Performed By: #### P NEM2 ####[id number] [place] [address] Pneumo Serotyp 18C, IgG (P7,P13,PNX) 0.08 ug/mL Normal [facility] Comment on above: Performed By: #### P NEM2 ####[id number] [place] [address] Pneumo Serotyp 19A, IgG (P13,PNX) 1.98 ug/mL Normal [facility] Comment on above: Performed By: #### P NEM2 ####[id number] [place] [address] Pneumo Serotyp 19F, IgG (P7,P13,PNX) 0.27 ug/mL Normal [facility] Comment on above: Performed By: #### P NEM2 ####[id number] [facility] [address] Pneumo Serotyp 2, IgG (PNX) 6.07 ug/mL Normal [facility] Comment on above: Performed By: #### P NEM2 ####[id number] [place] [address] Pneumo Serotyp 20, IgG (PNX) 1.46 ug/mL Normal [facility] Comment on above: Performed By: #### P NEM2 ####[id number] [place] [address] Pneumo Serotyp 22F, IgG (PNX) 0.12 ug/mL Normal [facility] Comment on above: Performed By: #### P NEM2 ####[id number] [place] [address] Pneumo Serotyp 23F, IgG (P7,P13,PNX) 0.27 ug/mL Normal [facility] Comment on above: Performed By: #### P NEM2 ####[id number] [place] [address] Pneumo Serotyp 33F, IgG (PNX) 1.01 ug/mL Normal [facility] Comment on above: Performed By: #### P NEM2 ####[id number] [place] [address] Pneumo Serotype 1, IgG (P13,PNX) 0.07 ug/mL Normal [facility] Comment on above: Performed By: #### P NEM2 ####[id number] [place] [address] Pneumo Serotype 14, IgG (P7,P13,PNX) 0.16 ug/mL Normal [facility] Comment on above: Performed By: #### P NEM2 ####[id number] [place] [address] Pneumo Serotype 3, IgG (P13,PNX) 0.71 ug/mL Normal [facility] Comment on above: Performed By: #### P NEM2 ####[id number] [place] [address] Pneumo Serotype 4, IgG (P7,P13,PNX) 0.41 ug/mL Normal [facility] Comment on above: Performed By: #### P NEM2 ####[id number] [place] [address] Pneumo Serotype 5, IgG (P13,PNX) 1.93 ug/mL Normal [facility] Comment on above: Performed By: #### P NEM2 ####[id number] [place] [address] Pneumo Serotype 6B, IgG (P7,P13,PNX) 0.23 ug/mL Normal [facility] Comment on above: Performed By: #### P NEM2 ####[id number] [place] [address] Pneumo Serotype 7F, IgG (P13,PNX) 0.82 ug/mL Normal [facility] Comment on above: Performed By: #### P NEM2 ####[id number] [place] [address] Pneumo Serotype 8, IgG (PNX) 0.37 ug/mL Normal [facility] Comment on above: Performed By: #### P NEM2 ####[id number] [place] [address] Pneumo Serotype 9N, IgG (PNX) 0.30 ug/mL [facility] Comment on above: Performed By: #### P NEM2 ####[id number] [place] [address] Pneumo Serotype 9V, IgG (P7,P13,PNX) 0.05 ug/mL Normal [facility] Comment on above: Performed By: #### P NEM2 ####[id number] [place] [address] Pneumo Serotype Interp See Note Normal [facility] Comment on above: Result Comment: INTE RPRETIVE [...] protection(2).References:1. Sherry BUENROSTRO, Stanley JW, Jordy X, Prince OLEA, Clemente HR.Multilaboratory assessment of threshold versus fold-changealgorithms for minimizing analytical variability inmultiplexed pneumococcal IgG measurements. Clin VaccineImmunol. 2014;21(7):982-8.2. Sherry BUENROSTRO, Clemente NULL. Use and Clinical Interpretation ofPneumococcal Antibody Measurements in the Evaluation ofHumoral Immune Function. Clin Vaccine Immunol.2015;22(2):148-152.Test developed and characteristics determined by [facility]. See Compliance Statement B: [employer]/CSPerformed by [employer],[address] [place] [id number] fxz.[employer], Vishnu Queen MD - Lab. Director Performed By: #### P NEM2 ####[id number] [place] [address] Vital Signs Date Time Vital Sign Value Performing Clinician Facility 12-06-2024 10:01-0400 Diastolic blood pressure 63 mm[Hg] Blaise Woodall MD Work Phone: [facility] 12-06-2024 10:01-0400 Heart rate 72 /min Blaise Woodall MD Work Phone: [facility] 12-06-2024 10:01-0400 Systolic blood pressure 114 mm[Hg] Blaise Woodall MD Work Phone: [facility] 11-30-2024 13:37-0400 Body mass index (BMI) [Ratio] 27.25 kg/m2 Saul Valorie DO Work Phone: [facility] 11-30-2024 13:37-0400 Body weight 67.59 kg Saul Valorie DO Work Phone: [facility] 11-30-2024 13:37-0400 Diastolic blood pressure 68 mm[Hg] Saul Valorie DO Work Phone: [facility] 11-30-2024 13:37-0400 Systolic blood pressure 108 mm[Hg] Saul Valorie DO Work Phone: [facility] 11-16-2024 14:28-0400 Body mass index (BMI) [Ratio] 27.03 kg/m2 Saul Valorie DO Work Phone: [facility] 11-16-2024 14:28-0400 Body weight 67.04 kg Saul Valorie DO Work Phone: [facility] 11-16-2024 14:28-0400 Diastolic blood pressure 70 mm[Hg] Saul Valorie DO Work Phone: [facility] 11-16-2024 14:28-0400 Systolic blood pressure 108 mm[Hg] Saul Valorie DO Work Phone: [facility] 11-15-2024 13:38-0400 Body height 157.5 cm Amina Anders MD Work Phone: [facility] 11-15-2024 13:38-0400 Body mass index (BMI) [Ratio] 26.95 kg/m2 Amina Anders MD Work Phone: [facility] 11-15-2024 13:38-0400 Body weight 66.86 kg Amina Anders MD Work Phone: [facility] 11-15-2024 13:38-0400 Diastolic blood pressure 70 mm[Hg] Amina Anders MD Work Phone: [facility] 11-15-2024 13:38-0400 Heart rate 72 /min Amina Anders MD Work Phone: [facility] 11-15-2024 13:38-0400 Systolic blood pressure 108 mm[Hg] Amina Anders MD Work Phone: [facility] 11-08-2024 08:30-0400 Body temperature 98.6 [degF] Parminder Negro MD Work Phone: [facility] 11-08-2024 08:30-0400 Diastolic blood pressure 57 mm[Hg] Parminder Negro MD Work Phone: [facility] 11-08-2024 08:30-0400 Heart rate 74 /min Parminder Negro MD Work Phone: [facility] 11-08-2024 08:30-0400 Respiratory rate 14 /min Parminder Negro MD Work Phone: [facility] 11-08-2024 08:30-0400 Systolic blood pressure 99 mm[Hg] Parminder Negro MD Work Phone: [facility] 11-07-2024 06:48-0400 Body height 157.5 cm Parminder Negro MD Work Phone: [facility] 11-07-2024 06:48-0400 Body mass index (BMI) [Ratio] 26.34 kg/m2 Parminder Negro MD Work Phone: [facility] 11-07-2024 06:48-0400 Body weight 65.32 kg Parminder Negro MD Work Phone: [facility] 10-26-2024 09:14-0400 Body height 157.5 cm Blaise Woodall MD Work Phone: [facility] 10-26-2024 09:14-0400 Body mass index (BMI) [Ratio] 26.78 kg/m2 Blaise Woodall MD Work Phone: [facility] 10-26-2024 09:14-0400 Body weight 66.41 kg Blaise Woodall MD Work Phone: [facility] 10-26-2024 09:14-0400 Diastolic blood pressure 67 mm[Hg] Blaise Woodall MD Work Phone: [facility] 10-26-2024 09:14-0400 Heart rate 67 /min Blaise Woodall MD Work Phone: [facility] 10-26-2024 09:14-0400 Systolic blood pressure 109 mm[Hg] Blaise Woodall MD Work Phone: [facility] 10-20-2024 16:13-0400 Body mass index (BMI) [Ratio] 26.85 kg/m2 Saul Valorie DO Work Phone: [facility] 10-20-2024 16:13-0400 Body weight 66.59 kg Saul Valorie DO Work Phone: [facility] 10-20-2024 16:13-0400 Diastolic blood pressure 70 mm[Hg] Saul Valorie DO Work Phone: [facility] 10-20-2024 16:13-0400 Systolic blood pressure 110 mm[Hg] Saul Valorie DO Work Phone: [facility] 09-27-2024 09:58-0400 Body height 157.5 cm Mya Walton MD Work Phone: [facility] 09-27-2024 09:58-0400 Body mass index (BMI) [Ratio] 25.82 kg/m2 Mya Walton MD Work Phone: [facility] 09-27-2024 09:58-0400 Body weight 64.05 kg Mya Walton MD Work Phone: [facility] 09-27-2024 09:58-0400 Diastolic blood pressure 76 mm[Hg] Mya Walton MD Work Phone: [facility] 09-27-2024 09:58-0400 Heart rate 90 /min Mya Walton MD Work Phone: [facility] 09-27-2024 09:58-0400 Systolic blood pressure 122 mm[Hg] Mya Walton MD Work Phone: [facility] 09-23-2024 11:27-0400 Body mass index (BMI) [Ratio] 25.94 kg/m2 Saul Valorie DO Work Phone: [facility] 09-23-2024 11:27-0400 Body weight 64.32 kg Saul Valorie DO Work Phone: [facility] 09-23-2024 11:27-0400 Diastolic blood pressure 60 mm[Hg] Saul Valorie DO Work Phone: [facility] 09-23-2024 11:27-0400 Systolic blood pressure 100 mm[Hg] Saul Valorie DO Work Phone: [facility] 09-01-2024 13:17-0400 Body mass index (BMI) [Ratio] 25.75 kg/m2 Saul Valorie DO Work Phone: [facility] 09-01-2024 13:17-0400 Body weight 63.87 kg Saul Valorie DO Work Phone: [facility] 09-01-2024 13:17-0400 Diastolic blood pressure 70 mm[Hg] Saul Valorie DO Work Phone: [facility] 09-01-2024 13:17-0400 Systolic blood pressure 110 mm[Hg] Saul Valorie DO Work Phone: [facility] 04-13-2024 13:49-0500 Body mass index (BMI) [Ratio] 25.79 kg/m2 Parminder Ramsay MD Work Phone: [facility] 04-13-2024 13:49-0500 Body weight 63.96 kg Parminder Ramsay MD Work Phone: [facility] 04-13-2024 13:49-0500 Diastolic blood pressure 73 mm[Hg] Parminder Ramsay MD Work Phone: [facility] 04-13-2024 13:49-0500 Heart rate 70 /min Parminder Ramsay MD Work Phone: [facility] 04-13-2024 13:49-0500 Systolic blood pressure 108 mm[Hg] Parminder Ramsay MD Work Phone: [facility] 02-23-2024 14:29-0400 Body mass index (BMI) [Ratio] 26.34 kg/m2 Saul Valorie DO Work Phone: [facility] 02-23-2024 14:29-0400 Body weight 65.32 kg Saul Valorie DO Work Phone: [facility] 02-23-2024 14:29-0400 Diastolic blood pressure 62 mm[Hg] Saul Valorie DO Work Phone: [facility] 02-23-2024 14:29-0400 Systolic blood pressure 110 mm[Hg] Saul Valorie DO Work Phone: [facility] Healthcare Encounters Encounter Date Encounter Type Care Provider Facility Start: 12-21-2024 End: 12-21-2024 Clinisync Result Encounter Saul Valorie DO Work Phone: [facility] External Department Unsolicited Start: 12-21-2024 End: 12-21-2024 Clinisync Result Encounter Saul Valorie DO Work Phone: [facility] External Department Unsolicited Start: 12-20-2024 End: 12-20-2024 ambulatory SAUL R VALORIE [facility] Start: 12-14-2024 End: 12-14-2024 Bamboo flowsheet Saul Valorie DO Work Phone: [facility] Start: 12-14-2024 End: 12-14-2024 Bamboo flowsheet Saul Valorie DO Work Phone: [facility] Start: 12-14-2024 End: 12-14-2024 ambulatory SAUL VALORIE Not Available Start: 12-13-2024 End: 12-13-2024 ambulatory [facility] Start: 12-08-2024 End: 12-08-2024 Orders Only Geeta Jacobs RN [facility] Comment on above: Intrauterine growth restriction affecting antepartum care of mother in second trimester, fetus 1 of multiple gestation (Primary Dx); Intrauterine growth restriction affecting antepartum care of mother in second trimester, fetus 2 of multiple gestation; Monochorionic diamniotic twin gestation in second trimester Start: 12-07-2024 End: 12-07-2024 Telephone encounter Susan Beltran LPN [facility] Start: 12-06-2024 End: 12-06-2024 ambulatory BLAISEAvani WOODALL [facility] Start: 12-06-2024 End: 12-06-2024 Office outpatient visit 25 minutes Blaise Woodall MD Work Phone: [facility] Comment on above: Intrauterine growth restriction affecting antepartum care of mother in second trimester, fetus 2 of multiple gestation (Primary Dx); Intrauterine growth restriction affecting antepartum care of mother in second trimester, fetus 1 of multiple gestation; 25 weeks gestation of ; Velamentous insertion of umbilical cord in second trimester; Monochorionic diamniotic twin gestation in second trimester Start: 12-06-2024 End: 12-06-2024 ambulatory [facility] Start: 12-01-2024 End: 12-01-2024 Orders Only Arleth Jefferson CMA [facility] Comment on above: Vasa previa, fetus 1 of multiple gestation (Primary Dx); Intrauterine growth restriction affecting antepartum care of mother in second trimester, fetus 1; Monochorionic diamniotic twin gestation in second trimester Start: 11-30-2024 End: 11-30-2024 Hanso flowsheet Saul Valorie DO Work Phone: [facility] Start: 11-30-2024 End: 11-30-2024 Bamboo flowsheet Saul Valorie DO Work Phone: [facility] Start: 11-30-2024 End: 11-30-2024 ambulatory SAUL VALORIE Not Available Start: 11-30-2024 End: 11-30-2024 flow sheet Saul Valorie DO Work Phone: [facility] Comment on above: Second trimester pre gnancy ([facility]); 25 weeks gestation of ([facility]); Monochorionic diamniotic twin gestation in second trimester ([facility]) Start: 11-29-2024 End: 11-29-2024 ambulatory [facility] Start: 11-24-2024 End: 11-24-2024 Clinisync Result Encounter Saul Valorie DO Work Phone: [facility] External Department Unsolicited Start: 11-24-2024 End: 11-24-2024 Clinisync Result Encounter Saul Valorie DO Work Phone: [facility] Unsolicited Start: 11-23-2024 End: 11-23-2024 Orders Only Susan Beltran LPN [facility] Comment on above: Monochorionic diamni otic twin gestation in second trimester (Primary Dx); Intrauterine growth restriction affecting antepartum care of mother in second trimester, fetus 1; Velamentous insertion of umbilical cord in second trimester; Vasa previa, fetus 1 of multiple gestation; Palpitations Start: 11-22-2024 End: 11-22-2024 ambulatory [facility] Start: 11-17-2024 End: 11-17-2024 Telephone encounter Amina Anders MD Work Phone: [facility] Start: 11-16-2024 End: 11-16-2024 flow sheet Saul Valorie DO Work Phone: [facility] Comment on above: Second trimester pre gnancy ([facility]); 23 weeks gestation of ([facility]); Diabetes mellitus screening; Monochorionic diamniotic twin gestation in second trimester ([facility]) Start: 11-16-2024 End: 11-16-2024 ambulatory SAUL EUGENE Not Available Start: 11-16-2024 End: 11-16-2024 Bamboo flowsheet Saul Maloneo DO Work Phone: [facility] Start: 11-16-2024 End: 11-16-2024 Bamboo flowsheet Saul Maloneo DO Work Phone: [facility] Start: 11-15-2024 End: 11-15-2024 Office outpatient visit 25 minutes Amina Anders MD Work Phone: [facility] Comment on above: Monochorionic diamni otic twin gestation in second trimester (Primary Dx) Start: 11-15-2024 End: [facility]: 11-08-2024 End: 11-08-2024 Telephone encounter [facility] Work Phone: [facility] Start: 11-08-2024 End: 11-08-2024 Evaluation and management of inpatient BELÉN Varma ROONEY [facility] Start: 11-07-2024 End: 11-07-2024 [facility] Start: 11-07-2024 End: 11-08-2024 Evaluation and management of inpatient Parminder Negro MD Work Phone: [facility] - GEN 3 Antepartum Start: 11-04-2024 End: 11-04-2024 Orders Only Susan Beltran LPN [facility] Comment on above: Intrauterine growth restriction affecting antepartum care of mother in second trimester, fetus 1 (Primary Dx); Velamentous insertion of umbilical cord in second trimester; Monochorionic diamniotic twin gestation in second trimester; Vasa previa, fetus 1 of multiple gestation; Palpitations Start: 11-01-2024 End: 11-01-2024 [facility] Start: 10-26-2024 End: 10-26-2024 Office outpatient visit 40 minutes Blaise Woodall MD Work Phone: [facility] Comment on above: Intrauterine growth restriction affecting antepartum care of mother in second trimester, fetus 1 (Primary Dx); 20 weeks gestation of ; Velamentous insertion of umbilical cord in second trimester; Monochorionic diamniotic twin gestation in second trimester; Vasa previa, fetus 1 of multiple gestation Start: 10-26-2024 End: 10-26-2024 ambulatory SAUL R [facility] Start: 10-20-2024 End: 10-20-2024 ambulatory SAUL VALORIE Not Available Start: 10-20-2024 End: 10-20-2024 flow sheet Saul Valorie DO Work Phone: [facility] Comment on above: 19 weeks gestation o f ; Second trimester Start: 10-20-2024 End: 10-20-2024 Bamboo flowsheet Saul Valorie DO Work Phone: [facility] Start: 10-20-2024 End: 10-20-2024 Bamboo flowsheet Saul Valorie DO Work Phone: [facility] Start: 10-11-2024 End: 10-11-2024 [facility] Start: 10-04-2024 End: 10-04-2024 ambulatory [facility] Start: 10-01-2024 End: 10-01-2024 Telephone encounter Susan Beltran LPN [facility] Start: 09-27-2024 End: 09-27-2024 Office outpatient new 45 minutes Alex Subramanian MD Work Phone: [facility] Comment on above: Monochorionic diamni otic twin gestation in second trimester (Primary Dx) Start: 09-27-2024 End: 09-27-2024 Orders Only Susna Beltran LPN [facility] Comment on above: Palpitations (Primar y Dx) Palpitations (Primar y Dx); Monochorionic diamniotic twin gestation in second trimester Start: 09-23-2024 End: 09-23-2024 Bamboo flowsheet Saul Valorie DO Work Phone: [facility] Start: 09-23-2024 End: 09-27-2024 Bamboo flowsheet Saul Valorie DO Work Phone: [facility] Start: 09-23-2024 End: 09-27-2024 Clinisync Result Encounter Saul Valorie DO Work Phone: [facility] External Department Unsolicited Start: 09-23-2024 End: 09-24-2024 External Result Encounter Saul Valorie DO Work Phone: [facility] External Department Unsolicited Start: 09-23-2024 End: 09-23-2024 ambulatory SAUL VALORIE Not Available Start: 09-23-2024 End: 09-23-2024 Patient encounter procedure Saul Valorie DO Work Phone: [facility] Healthcare Start: 09-23-2024 End: 09-23-2024 Periodic preventive med est patient 18-39 yrs Saul Valorie DO Work Phone: [facility] Comment on above: 15 weeks gestation o f ; Second trimester ; Well woman exam with routine gynecological exam; Exposure to STD; Vaginal discharge; Monochorionic diamniotic twin gestation in second trimester Start: 09-01-2024 End: 09-01-2024 Bamboo flowsheet Saul Valorie DO Work Phone: [facility] Start: 09-01-2024 End: 09-01-2024 Bamboo flowsheet Saul Valorie DO Work Phone: [facility] Start: 09-01-2024 End: 09-01-2024 flow sheet Saul Valorie DO Work Phone: [facility] Comment on above: First trimester preg delmy; 12 weeks gestation of ; Monochorionic diamniotic twin gestation in first trimester Start: 09-01-2024 End: 09-01-2024 ambulatory SAUL VALORIE Not Available Start: 08-19-2024 End: 08-19-2024 Chart abstracting Alex Subramanian MD Work Phone: [facility] Start: 08-13-2024 End: 08-13-2024 ambulatory SAUL VALORIE Not Available Start: 04-13-2024 End: 04-13-2024 ambulatory PARMINDER RAMSAY [facility] Start: 04-13-2024 End: 04-13-2024 Office outpatient new 45 minutes Parminder Ramsay MD Work Phone: [facility] - Parminder Ramsay MD Comment on above: Trigeminal neuralgia (Primary Dx) Start: 02-23-2024 End: 02-23-2024 ambulatory SAUL VALORIE Not Available Start: 02-23-2024 End: 02-23-2024 Bamboo flowsheet Saul Valorie DO Work Phone: [facility] Start: 02-23-2024 End: 02-28-2024 Clinisync Result Encounter Saul Valorie DO Work Phone: [facility] External Department Unsolicited Start: 02-23-2024 End: 02-28-2024 Clinisync Result Encounter Saul Valorie DO Work Phone: [facility] Unsolicited Start: 02-23-2024 End: 02-23-2024 Patient encounter procedure Saul Valorie DO Work Phone: [facility] Start: 02-23-2024 End: 02-23-2024 Periodic preventive med est patient 18-39 yrs Saul Valorie DO Work Phone: [facility] Comment on above: Well woman exam with routine gynecological exam Start: 09-09-2022 Encounter for genera l adult medical examination without abnormal findings DR SABRINA RAMIREZ . [facility] Start: 09-04-2022 End: 09-05-[address] SABRINA RAMIREZ . Facility:[facility] Start: 09-04-2022 End: 09-05-2022 Encounter for general adult medical examination without abnormal findings DR SABRINA RAMIREZ . Facility:[facility] Start: 08-22-2022 End: 08-23-[address] SABRINA RAMIREZ . Facility:[facility] Start: 12-25-2021 End: 12-25-[address] SAUL EUGENE . Facility:[facility] Start: 01-15-2018 Patient encounter DELMY BARRIGA RAVENWOOD Facility:[facility] Start: 11-25-2017 Patient encounter BAKARI CARREONTILA Hess ity:[facility] Start: 11-25-2017 Ambulatory Bakari Liang Seven Facility :[id number] Procedures Date Procedure Procedure Detail Performing Clinician Start: 12-21-2024 US OB BPP W NON-STRESS Saul Eugene DO Work Phone: Start: 11-24-2024 ALL CBC WITH AUTO DIFF Saul Eugene DO Work Phone: Start: 11-08-2024 Doppler velocimetry middle cerebral art Arminda Lasalla DO Work Phone: Start: 11-07-2024 End: 11-07-2024 REPEATED ABORH Parminder Negro MD Work Phone: Start: 11-07-2024 End: 11-07-2024 Antibody screen Parminder Negro MD Work Phone: Comment on above: Performed By: #### T SC #### [facility] [address] [place] [address] VIR Start: 11-07-2024 Us uterus l imited 1/> fetuses Mya Walton MD Work Phone: Start: 11-07-2024 EXTRA TUBES Parminder pineda MD Work Phone: Start: 11-07-2024 EXTRA TUBES SST TOP Jameel Negro MD Work Phone: Start: 11-07-2024 Blood count complete auto&auto difrntl wbc Melody Estes MD Work Phone: Start: 11-07-2024 Blood typing serologic abo Melody Estes MD Work Phone: Start: 11-07-2024 Cul prsmptv pthgnc organism scrn w/colony estimj Lisa Daiadez [employer] WORKER[employer]CN Work Phone: Start: 11-07-2024 VAGINITIS PANEL PCR Car victor mchapo Daiadez [employer] WORKER[employer]CN Work Phone: Start: 11-07-2024 Culture bacterial quanttative colony count urine Lisa Daiadez [employer] WORKER[employer] Work Phone: Start: 11-07-2024 ER EXTRA URINE Parminder Negro MD Work Phone: Start: 10-20-2024 Urnls dip stick/tabl et rgnt non-auto w/o micrscp Saul Valorie DO Work Phone: Start: 09-23-2024 RECURRENT VAGINITIS (HTRX) Saul Valorie DO Work Phone: Start: 09-23-2024 Urnls dip stick/tabl et rgnt non-auto w/o micrscp Sual Valorie DO Work Phone: Start: 09-23-2024 IGP,APTIMA HPV,AGE GDLN Saul Valorie DO Work Phone: Start: 09-23-2024 Microscopic observat ion [Identifier] in Cervix by Cyto stain Blaise Woodall MD Work Phone: Start: 09-01-2024 Urnls dip stick/tabl et rgnt non-auto w/o micrscp Saul Valorie DO Work Phone: Start: 08-13-2024 Antibody screen Geovanna Subramanian MD Work Phone: Start: 08-13-2024 Drug scrn 1+ class nonchromo Not In System Ref Prov Start: 08-13-2024 Hepatitis c antibody No t In System Ref Prov Start: 08-13-2024 HIV 1&2 AB/AG SCREEN (P24 AG) Not In System Ref Prov Start: 08-13-2024 Iaad ia hepatitis b surface antigen Not In System Ref Prov Start: 08-13-2024 TYPE AND SCREEN Not In System Ref Prov Start: 02-23-2024 IGP,APTIMA HPV,AGE GDLN Saul Valorie DO Work Phone: Start: 02-23-2024 Microscopic observat ion [Identifier] in Cervix by Cyto stain Parminder Ramsay MD Work Phone: Plan of Treatment Date Care Activity Detail Author Start: 09-24-2027 [facility] Start: 02-22-2027 Screening for malignant neoplasm of cervix [facility] Start: 12-08-2025 End: 12-08-2025 US MFM with or without consult US MFM with or without consult Imaging Routine Intrauterine growth restriction affecting antepartum care of mother in second trimester, fetus 1 of multiple gestation Intrauterine growth restriction affecting antepartum care of mother in second trimester, fetus 2 of multiple gestation Monochorionic diamniotic twin gestation in second trimester Expected: 12/08/2025 (Approximate), Expires: 12/08/2025 [employer] Work Phone: Comment on above: Expected: 12/08/2025 (Approximate), Expires: 12/08/2025 Start: 12-06-2025 Tobacco Screening [facility] Start: 12-01-2025 End: 12-01-2025 US MFM with or without consult US MFM with or without consult Imaging Routine Vasa previa, fetus 1 of multiple gestation Intrauterine growth restriction affecting antepartum care of mother in second trimester, fetus 1 Monochorionic diamniotic twin gestation in second trimester Expected: 12/01/2025 (Approximate), Expires: 12/01/2025 [employer] Work Phone: Comment on above: Expected: 12/01/2025 (Approximate), Expires: 12/01/2025 Start: 11-15-2025 Adult BMI Screening Adult BMI Screen ing [facility] Start: 11-15-2025 Tobacco Screening Tobacco Screening [facility] Start: 11-07-2025 Adult BMI Screening Adult BMI Screen ing [facility] Start: 11-07-2025 Tobacco Screening Tobacco Screening [facility] Start: 10-26-2025 Adult BMI Screening Adult BMI Screen ing [facility] Start: 10-26-2025 Tobacco Screening Tobacco Screening [facility] Start: 09-27-2025 Adult BMI Screening Adult BMI Screen ing [facility] Start: 09-27-2025 Tobacco Screening Tobacco Screening [facility] Start: 04-13-2025 Adult BMI Screening Adult BMI Screen ing [facility] Start: 04-13-2025 Tobacco Screening Tobacco Screening [facility] Start: 03-28-2025 End: 03-28-2025 Patient encounter procedure [facility] Start: 03-01-2025 End: 03-01-2025 Patient encounter procedure 03/01/2025 2:00 PM EDT Office Visit [facility] [address] [place] [phone] Saul Eugene DO [address] [place] [address] [facility] Start: 01-24-2025 Influenza vaccination Influenza Vacc ine [facility] Start: 01-10-2025 End: 01-10-2025 Patient encounter procedure 01/10/2025 8:30 AM EDT Office Visit Maternal- Medicine at [facility] [address] [place] [phone] Amina Anders MD [address] [place] [address] Maternal- Medicine at [facility] Start: 12-30-2024 End: 12-30-2024 Patient encounter procedure 12/30/2024 11:30 AM EDT Routine [facility] [address] [place] [phone] Saul Eugene, DO [address] [place] [address] [facility] Start: 12-29-2024 End: 12-29-2024 Patient encounter procedure [facility] Start: 12-20-2024 End: 12-20-2024 Patient encounter procedure 12/20/2024 3:00 PM EDT Appointment [facility] [address] [facility] [place] [phone] [facility] Start: 12-14-2024 End: 12-14-2024 Patient encounter procedure [facility] Comment on above: Arrived Start: 12-13-2024 End: 12-13-2024 Patient encounter procedure 12/13/2024 3:15 PM EDT Appointment [facility] [address] [facility] [place] [address] [facility] Start: 12-06-2024 End: 12-06-2024 Patient encounter procedure [facility] Start: 11-30-2024 End: 06-02-2025 US biophysical profile w non stress test US biophysical profile w non stress test Imaging Routine Monochorionic diamniotic twin gestation in second trimester ([facility]) Expected: 11/30/2024 (Approximate), Expires: 06/02/2025 [facility] Work Phone: Comment on above: Expected: 11/30/2024 (Approximate), Expires: 06/02/2025 Start: 11-30-2024 End: 11-30-2024 Patient encounter procedure 11/30/2024 1:00 PM EDT Routine [facility] [address] [place] [phone] Saul Eugene, DO [address] [place], [place] [phone] [facility] Start: 11-29-2024 End: 11-29-2024 Patient encounter procedure 11/29/2024 3:00 PM EDT Appointment [facility] [address] [place] [address] [facility] Start: 11-22-2024 End: 11-22-2024 Patient encounter procedure 11/22/2024 8:00 AM EDT Appointment [facility] [address] [place] [address] [facility] Start: 11-16-2024 End: 11-16-2024 Patient encounter procedure 11/16/2024 2:20 PM EDT Routine [facility] [address] [place] [phone] Saul Eugene DO [address] [place] [address] Arrived [facility] Comment on above: Arrived Start: 11-16-2024 End: 11-16-2025 CBC panel - Blood by Automated count CBC Lab Routine Diabetes mellitus screening Expected: 11/16/2024 (Approximate), Expires: 11/16/2025 [facility] Work Phone: Comment on above: Expected: 11/16/2024 (Approximate), Expires: 11/16/2025 Start: 11-16-2024 End: 11-16-2025 Measurement of glucose 1 hour after glucose challenge for glucose tolerance test Glucose tolerance, 1 hour Lab Routine Diabetes mellitus screening Expected: 11/16/2024 (Approximate), Expires: 11/16/2025 [facility] Comment on above: Expected: 11/16/2024 (Approximate), Expires: 11/16/2025 Start: 11-15-2024 End: 11-15-2024 Patient encounter procedure 11/15/2024 2:30 PM EDT Office Visit Maternal- Medicine at [facility] [address] [place] [address] Amina Anders MD [address] [place] [address] [facility]- Medicine at [facility] Start: 11-15-2024 End: 11-15-2024 Patient encounter procedure [facility] Start: 11-09-2024 End: 11-09-2024 Patient encounter procedure 11/09/2024 7:30 AM EDT Appointment [facility] [address] [place] [address] [facility] Start: 11-01-2024 End: 11-01-2024 Patient encounter procedure 11/01/2024 1:00 PM EDT Appointment [facility] [address] [place] [address] [facility] Start: 10-26-2024 End: 10-26-2024 Patient encounter procedure 10/26/2024 9:00 AM EDT Appointment [facility] [address] [place] [address] [facility] Start: 10-20-2024 End: 10-20-2024 Patient encounter procedure 10/20/2024 3:50 PM EDT Routine [facility] [address] [place] [phone] Saul Eugene DO [address] [place] [address] [facility] Start: 10-11-2024 End: 10-11-2024 Patient encounter procedure 10/11/2024 3:30 PM EDT Appointment [facility] [address] [place] [address] [facility] Start: 10-04-2024 End: 10-04-2024 Patient encounter procedure 10/04/2024 4:45 PM EDT Appointment [facility] [address] [place] [address] [facility] Start: 09-27-2024 End: 09-27-2025 US MFM with or without consult US MFM with or without consult Imaging Routine Palpitations Monochorionic diamniotic twin gestation in second trimester Expected: 09/27/2024, Expires: 09/27/2025 [employer] Work Phone: Comment on above: Expected: 09/27/2024 , Expires: 09/27/2025 Start: 09-27-2024 End: 09-27-2024 Patient encounter procedure 09/27/2024 10:30 AM EDT Office Visit Maternal- Medicine at [facility] [address] [place] [address] Alex Subramanian MD [address] [address] [facility] at [facility] Start: 09-27-2024 End: 09-27-2024 Patient encounter procedure 09/27/2024 9:15 AM EDT Appointment [facility] [address] [place] [address] [facility] Start: 09-23-2024 End: 10-24-2024 Alpha fetoprotein, maternal Alpha fetoprotein, maternal Lab Routine 15 weeks gestation of Second trimester Expected: 09/23/2024 (Approximate), Expires: 10/24/2024 [facility] Comment on above: Expected: 09/23/2024 (Approximate), Expires: 10/24/2024 Start: 09-01-2024 End: 09-01-2024 Patient encounter procedure 09/01/2024 1:10 PM EDT Routine [facility] [address] [place] [phone] Saul Eugene DO [address] [place] [address] Arrived [facility] Comment on above: Arrived Start: 01-25-2024 Influenza vaccination Influenza Vacc ine [facility] Start: 04-26-2023 DTaP,Tdap and Td Vaccines (7 - Td or Tdap) DTaP,Tdap and Td Vaccines (7 - Td or Tdap) [facility] Start: 08-06-2013 Adult BMI Follow Up Plan Adult BMI Follow Up Plan [facility] Start: 2007 Depression Screening Depression Scre ening [facility] CHLAMYDIA TRACHOMATI S (GENITO/STI) CHLAMYDIA TRACHOMATIS (GENITO/STI) Lab Routine Exposure to STD Ordered: 09/23/2024 [facility] Comment on above: Ordered: 09/23/2024 Cytology Cervical or vaginal smear or scraping study Pap Smear Pathology and Cytology Routine Well woman exam with routine gynecological exam Ordered: 02/23/2024 [facility] Work Phone: Comment on above: Ordered: 02/23/2024 Cytology Cervical or vaginal smear or scraping study Pap Smear Pathology and Cytology Routine Well woman exam with routine gynecological exam Ordered: 09/23/2024 [facility] Comment on above: Ordered: 09/23/2024 End: 09-27-2025 ECG 12 lead ECG 12 lead ECG Routine Palpitations 1 Occurrences starting 09/27/2024 until 09/27/2025 [facility] Work Phone: Comment on above: 1 Occurrences starti ng 09/27/2024 until 09/27/2025 Neisseria gonorrhoea e DNA [Presence] in Unspecified specimen by RANDALL with probe detection Neisseria gonorrhea DNA probe, direct Lab Routine Exposure to STD Ordered: 09/23/2024 [facility] Comment on above: Ordered: 09/23/2024 SURESWAB(R) ADVANCED VAGINITIS PLUS, TMA SURESWAB(R) ADVANCED VAGINITIS PLUS, TMA Pathology and Cytology Routine Vaginal discharge Ordered: 09/23/2024 [facility] Work Phone: Comment on above: Ordered: 09/23/2024 Immunizations Immunization Date Immunization Notes Care Provider Denisse rosales 03-09-2019 influenza virus vaccine, unspecified formulation Parminder Ramsay MD Work Phone: [facility] Payers Date Payer Category Payer Private Health Insurance [facility] N [id number] 2024 Commercial Managed C are - POS [id number] 2024 Private Health Insurance [id number] 2022 Unknown [employer] [id number] 2022-Present [address] [place] [address] [id number] 2019 Unknown [id number] 1995 Unknown [id number] 2.16.840.1.408323.3.579.2. 593 1995 Unknown [id number] 2.16.840.1.196279.3.579.2. 593 1995 Unknown [id number] 2.16.840.1.230360.3.579.2. 1286 1995 Unknown [id number] 2.16.840.1.872066.3.579.2. 1285 1995 Unknown [id number] 2.16.840.1.878147.3.579.2. 1258 1995 Unknown [id number] 2.16.840.1.623557.3.579.2. 1258 1995 Unknown [id number] 2.16.840.1.771128.3.579.2. 1258 1995 Unknown [id number] 2.16.840.1.764522.3.579.2. 1258 1995 Unknown [id number] 2.16.840.1.179837.3.579.2. 1258 1995 Unknown [id number] 2.16.840.1.662387.3.579.2. 1258 1995 Unknown [id number] 2.16.840.1.291658.3.579.2. 1258 1995 Unknown [id number] 2.16.840.1.458188.3.579.2. 1258 1995 Unknown [id number] 2.16.840.1.202359.3.579.2. 1258 1995 Unknown [id number] 2.16.840.1.577644.3.579.2. 1285 1995 Unknown [id number] 2.16.840.1.948763.3.579.2. 1285 1995 Unknown [id number] 2.16.840.1.171809.3.579.2. 1285 1995 Unknown [id number] 2.16.840.1.693359.3.579.2. 1285 1995 Unknown [id number] 2.16.840.1.189849.3.579.2. 1285 1995 Unknown [id number] 2.16.840.1.477032.3.579.2. 1286 1995 Unknown [id number] 2.16.840.1.675720.3.579.2. 1286 1995 Unknown [id number] 2.16.840.1.992706.3.579.2. 128 1995 Unknown [id number] 2.16.840.1.910987.3.579.2. 1286 1995 Unknown [id number] 2.16.840.1.397445.3.579.2. 128 1995 Unknown [id number] 2.16.840.1.371733.3.579.2. 1285 1995 Unknown [id number] 2.16.840.1.402369.3.579.2. [facility] Unknown [id number] 2.16.840.1.891071.3.579.2. [facility] Unknown [id number] 2.16.840.1.794620.3.579.2. 128 1995 Unknown [id number] 2.16.840.1.119650.3.579.2. 1285 1995 Unknown [id number] 2.16.840.1.309365.3.579.2. 1285 1995 Unknown [id number] 2.16.840.1.171839.3.579.2. 1285 1995 Unknown [id number] 2.16.840.1.479521.3.579.2. 1286 1959 Private Health Insurance [id number] 1959 Self-pay Unknown [id number] Unknown [id number] 2.16.840.1.564494.3.579.2. 593 Unknown [id number] Social History Date Type Detail Facility Start: 01-29-2023 End: 09-27-2024 Tobacco smoking status NHIS Never smoked tobacco [facility] Start: 02-23-2024 End: 10-20-2024 Alcoholic beverage intake Ex-drinker (finding) [facility] Start: 07-06-2020 End: 02-23-2024 History of Social function [facility] Start: 07-06-2020 End: 02-23-[address] [facility] Start: 01-29-2023 Alcohol Comment Occaisonal alcohol use Caffeine:1-2 cups per day [facility] Start: 1995 Sex assigned at Female [facility] Start: 02-10-2023 Gender identity Identifies as female gender (finding) [facility] Start: 02-10-2023 Sexual orientation Heterosexual (finding) [facility] Start: 08-14-2018 End: 09-27-2024 Tobacco use and exposure Smokeless tobacco non-user [facility] Start: 04-13-2024 Alcoholic beverage intake Current drinker of alcohol (finding) [facility] Childcare Unknown [facility] [employer] Start: 10-28-2016 Alcohol Comment RARE [facility] Start: 1995 Sex assigned at Not on file [facility] Start: 12-29-2014 Sex Female (finding) [facility] Start: 06-22-2024 [facility] Has the [employer], or [employer] threatened to shut off services in your home in past 12Mo No [facility] Medical Equipment Procedure Code Equipment Code Equipment Origin al Text Equipment Identifier Dates 1 strip by In Vi tro route Daily Use in the morning prior to breakfast, 1 hour after each meal for a total of 4times daily. [id number] Start: 11-24-2024 End: 12-24-2024 1 each by In Vit ro route Daily Use to check FSBS four times daily [id number] Start: 11-24-2024 End: 12-24-2024 Goals Date Patient Goal Desired Activity /State Personal health goal Personal health goal Functional Status Date Assessment Result Facility 11-07-2024 Humiliation, Afraid, Rape, and Kick questionnaire [HARK] [facility] [employer] [facility] Clinical Notes 02-23-2024 to 12-07-2024 Telephone Encounter - Susan Beltran LPN - 12/07/2024 3:35 PM EDTTelephone Encounter - Susan Beltran LPN - 12/07/2024 3:35 PM EDAnahy Greco RN - 12/06/2024 9:45 AM EDTDischarge Instr - Activity Note Date & Type Note Facility 12-07-2024 Miscellaneous Notes Patient called with additional questions about our mychart conversation. Dr Woodall will call the patient to talk with her. documented in this encounter [facility] 12-07-2024 Telephone encounter Note Patient called with additional questions about our mychart conversation. Dr Woodall will call the patient to talk with her. [facility] 12-06-2024 History of Presen t illness Narrative Headache/epigastric pain/blurry vision/swelling? No Cramping/contractions? No Spotting or vaginal bleeding? No Loss or gush of fluid like your water may have broken? No Recent ER visits or hospitalizations? No Any concerns that you would like me to mention to the provider today? No REASON FOR OFFICE VISIT: add on FGR of twin B in monochorionic diamniotic twin HISTORY OF PRESENT ILLNESS: Minnie Bunch is a pleasant 29 y.o. at 25w6d due on Estimated Date of Delivery: 03/15/25 . has been complicated by: Monochorionic diamniotic twin FGR of twin A and twin B (new diagnosis today). Twin A EFW 4% and twin B EFW 8%. Twin B with elevated SD ratio. Velamentous cord insertion of twin A on posterior lower uterus traveling superiorly to posterior placenta. Velamentous cord measures >3cm from internal os on follow up imaging, no longer consistent with vasa previa. Currently the patient has no complaints. The patient denies headaches, vision changes, nausea, vomiting, right upper quadrant/epigastric pain, SOB or chest pain. She denies contractions, vaginal bleeding, leaking of fluid. She reports good movement. Aneuploidy screening: Low risk cell free DNA for trisomy 13, 18, 21, monosomy X and 22q11 deletion. Monozygotic twins. Carrier screening: Baby Girls x2 I have reviewed the pertinent available patient records including but not limited to notes, labs and images. OB History Para Term AB Living 1 SAB IAB Ectopic Multiple Live Births # Outcome Date GA Lbr Efrain/2nd Weight Sex Type Anes PTL Lv 1 Current ALLERGIES: No Known Allergies CURRENT MEDICATIONS: Current [...] mg-mcg per tablet, , Disp: , Rfl: PHYSICAL EXAMINATION: BP 114/63 Pulse 72 LMP 06/08/2024 . Well-appearing, no acute distress Normal gait well oriented in time place and person. Respirations not labored, speaking comfortably in complete sentences Gravid abdomen Lab Results Component Value Date WBC 9.6 11/07/2024 HGB 11.3 (L) 11/07/2024 HCT 33.3 (L) 11/07/2024 MCV 86 11/07/2024 PLT 253 11/07/2024 OVERALL ASSESMENT -Minnie Bunch is a pleasant 29 y.o. at 25w6d -monochorionic diamniotic twin , spontaneous - growth restriction of twin A - growth restriction of twin B -Velamentous cord insertion of twin A no longer consistent with a vasa previa, measures over 3 cm from internal os Counseling [facility] Guideline Recommendations for Delivery Timing ( committee opinion #[id number]) Multifetal gestation - uncomplicated Monochorionic diamniotic twins 34 0/7 - 37 6/7 Multi gestation complicated Monochorionic diamniotic twins with isolated growth restriction 32 0/7-34 6/7 Summary of Recommendations: Continue weekly umbilical artery Doppler, MCA Doppler and ductus venosus in the setting of isolated growth restriction and monochorionic diamniotic twin , through [facility] Repeat growth ultrasound in 3 weeks Weekly testing starting at 28 weeks gestation, through primary OB Preeclampsia precautions reviewed movement precautions reviewed Delivery at 34 week gestation with ANCS prior to delivery though pending clinical course Mode of delivery to be determined pending further growth. Velementous cord insertion measures >3cm from internal os. Recommend magnesium for neuroprotection/prematurity if delivery before 32 weeks Location of delivery to be discussed with primary OB depending on gestational age cut offs of NICU at local hospital. 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 Patient does have ultrasound and office visit scheduled with us. Thank you for allowing me to participate in the care of Minnie Bunch. If there any questions please do not hesitate to contact us. Total time spent was 35 minutes: Preparing to see the patient (e.g., review of tests) Obtaining and/or reviewing separately obtained history Performing a medically appropriate examination and/or evaluation Counseling and educating the patient/family/caregiver Ordering medications, tests, or procedures Referring and communicating with other health day care center director (not separately reported) Documenting clinical information in the electronic or other health record Blaise Woodall MD Maternal- Medicine [facility] [address] [place] [address] This document was created with [employer] technology. Though I make every effort to review the dictation as it is transcribed, on occasion the spoken word can be misinterpreted by the technology leading to inappropriate words, phrases, or sentences. This note is addressed to the requesting provider as a consultation for clinical guidance. Specific medical abbreviations are occasionally used and those are generally approved by the English?Board of?Obstetrics and?Gynecology?as well as?Amor s abbreviations. The above plan of care was based solely on the diagnoses for which a consultation was requested. ?More frequent testing may be indicated based on her other medical/obstetrical conditions. The management of other or medical conditions is beyond the scope of requested consultation and will continue to be followed by the primary transportation logistics internship or primary care provider. Note to patient: The Cures Act makes medical notes like these available to patients in the interest of transparency. However, be advised this is a medical document. It is intended as peer to peer communication. It is written in medical language and may contain abbreviations or verbiage that are unfamiliar. It may appear blunt or direct. Medical documents are intended to carry relevant information, facts as evident, and the clinical opinion of the practitioner. documented in this encounter [facility] 11-30-2024 History of Presen t illness Narrative Reason for Appointment: Patient ID: Minnie Bunch is a 29 y.o. female who presents for Routine Visit Patient presents today for Return OB appointment. MEDICATIONS Current Outpatient Medications Medication Instructions Alcohol Swabs (Alcohol Prep Pad) 70 % pads 1 Pad, Topical, Daily, Use four times daily to check FSBS. aspirin 81 mg, Oral, Daily RT Blood Glucose Monitoring Suppl (D-Care Glucometer) w/Device kit 1 kit, Does not [...] APPENDECTOMY 07/2018 Dr. Bess WISDOM TOOTH EXTRACTION [place] teeth REVIEW OF SYSTEMS Review of Systems: [...] nursing note reviewed. Exam conducted with a paper twister tender present. Vitals: Estimated body mass index is 27.25 kg/m as calculated from the following: Height as of 02/10/23: 5' 2 . Weight as of this encounter: 149 lb. BP: 108/68 Patient's last menstrual period was 06/08/2024. ASSESSMENT & PLAN ICD-10-CM 1. Second trimester ([facility]) Z34.92 2. 25 weeks gestation of ([facility]) Z3A.25 3. Monochorionic diamniotic twin gestation in second trimester ([facility]) O30.032 Return OB: Patient presents today for a routine obstetrics appointment. Patient is currently 25w0d . Patient states she is doing well but has complaints of being tired due to current . Patient has verbalizes frequent movement. labor precautions was discussed/given and patient was instructed to perform kick counts three times a day. Pt twin gestation. Given NST/BPP orders to start at 28 weeks. Pt to have celestone at 34-35 weeks. No orders of the defined types were placed in this encounter. Follow Up: Patient is to return to office in 3 week for routine OB appointment. Documented by Anali Li LPN on behalf of: Saul Eugene DO documented in this encounter [facility] 11-23-2024 Miscellaneous Notes Notified patient via voicemail of negative CFDNA results. documented in this encounter [facility] 11-23-2024 Telephone encounter Note Notified patient via voicemail of negative CFDNA results. [facility] 06-25-2025 Miscellaneous Notes [employer] Database Analyst mg asking if pt would be able to come at 8:00 a.m. for her ultrasound on 12/06 instead of 9:00. documented in this encounter [facility] 11-17-2024 Telephone encounter Note [employer] Database Analyst mg asking if pt would be able to come at 8:00 a.m. for her ultrasound on 12/06 instead of 9:00. [facility] 11-16-2024 History of Presen t illness Narrative Reason for Appointment: Patient ID: Minnie Bunch is a 29 y.o. female who presents for Routine Visit Patient presents today for Return OB appointment. MEDICATIONS Current Outpatient Medications Medication Instructions aspirin 81 mg, Oral, Daily RT docusate sodium (COLACE) 100 mg, 2 times daily magnesium oxide (MAG-OX) 400 mg, [...] APPENDECTOMY 07/2018 Dr. Bess WISDOM TOOTH EXTRACTION [place] teeth REVIEW OF SYSTEMS Review of Systems: [...] nursing note reviewed. Exam conducted with a paper twister tender present. Vitals: Estimated body mass index is 27.03 kg/m as calculated from the following: Height as of 02/10/23: 5' 2 . Weight as of this encounter: 147 lb 12.8 oz. BP: 108/70 Patient's last menstrual period was 06/08/2024. ASSESSMENT & PLAN ICD-10-CM 1. Second trimester ([facility]) Z34.92 POCT urinalysis dipstick manually resulted 2. 23 weeks gestation of ([facility]) Z3A.23 POCT urinalysis dipstick manually resulted 3. Diabetes mellitus screening Z13.1 CBC Glucose tolerance, 1 hour CBC Glucose tolerance, 1 hour 4. Monochorionic diamniotic twin gestation in second trimester ([facility]) O30.032 Return OB: Patient presents today for a routine obstetrics appointment. Patient is currently 23w0d . Patient states she is doing well but has complaints of being tired due to current . Patient has verbalizes frequent movement. labor precautions was discussed/given. Discussed admission to hospital with contractions. Pt to have cervical lengths as needed. Pt has complaints of bald spot. Pt to start nst/bpp weekly at 28 weeks. Orders Placed This Encounter Procedures CBC Glucose tolerance, 1 hour POCT urinalysis dipstick manually resulted Follow Up: Patient is to return to office in 2 week for routine OB appointment. Documented by Anali Li LPN on behalf of: Saul Eugene DO documented in this encounter [facility] 11-15-2024 History of Presen t illness Narrative Headache/epigastric pain/blurry vision/swelling? No Cramping/contractions? No Spotting or vaginal bleeding? No Loss or gush of fluid like your water may have broken? No Recent ER visits or hospitalizations? 11/07/24 TTH for contractions Any concerns that you would like me to mention to the provider today? No ' REASON FOR OFFICE VISIT: Monochorionic diamniotic twins HISTORY OF PRESENT ILLNESS: Minnie Bunch is a pleasant 29 y.o. G 1 P0 at 22w6d due on Estimated Date of Delivery: 03/15/25 . has been complicated with Spontaneously conceiving monochorionic diamniotic twin gestation without evidence of [id number] transfusion syndrome. 2. Marginal cord insertion in [...] lb 6.4 oz) LMP 06/08/2024 BMI 26.95 kg/m . Gravid abdomen, Respirations not labored. Normal [...] with growth ultrasound and 7-8 weeks at [facility]. 6. Initiate outpatient testing form once a week NST and NATAHN at 28 weeks gestation at her local Ob office. Thank you for allowing me to participate in [facility]. If there are any questions, please do not hesitate to call me. Sincerely, AMINA ANDERS MD documented in this encounter [facility] 11-08-2024 Miscellaneous Notes ----- Message from García Valera MD sent at 11/08/2024 1:27 PM EDT ----- Regarding: follow up Hello this patient is being discharged today. She was admitted for contractions in the setting of a mono/di twin . She was interested in transferring care to [facility]. I know she will have to coordinate that through her OB, but didn't know if we could help at all with that to make sure she has follow up. Thanks, García Images from the original note were not included. García Valera MD P [facility] Women Appointment Desk Hello this patient is being discharged today. She was admitted for contractions in the setting of a mono/di twin . She was interested in transferring care to [facility]. I know she will have to coordinate that through her OB, but didn't know if we could help at all with that to make sure she has follow up. Thanks, García Spoke w/patient she wants to speak w/her primary ob first before she decides to transfer. Cheryle documented in this encounter [facility] 11-08-2024 Telephone encounter Note ----- Message from García Valera MD sent at 11/08/2024 1:27 PM EDT ----- Regarding: follow up Hello this patient is being discharged today. She was admitted for contractions in the setting of a mono/di twin . She was interested in transferring care to [facility]. I know she will have to coordinate that through her OB, but didn't know if we could help at all with that to make sure she has follow up. Thanks, García [facility] 11-08-2024 Telephone encounter Note Images from the original note were not included. García Valera MD P [facility] Women Appointment Desk Tom this patient is being discharged today. She was admitted for contractions in the setting of a mono/di twin . She was interested in transferring care to [facility]. I know she will have to coordinate that through her OB, but didn't know if we could help at all with that to make sure she has follow up. Thanks, García Spoke w/patient she wants to speak w/her primary ob first before she decides to transfer. Cheryle [facility] 11-08-2024 Hospital Discharg e instructions Jennifer Chin RN - 11/08/2024 1:32 PM EDT Discharge Instructions for discharge to home, undelivered, provided to Minnie Bunch Diet: regular Fluids: drink 6-8 glasses of water a day, avoid alcohol, and avoid caffeine Elimination: empty bladder every 2-3 hours Activity: resume previous, unlimited activity Kick Count: Instruction/Reinforcement: discussed with patient N/A will begin at 28 weeks Call Provider: abdominal pain/cramping, burning/pain with urination, decreased or absent movement, dizziness, epigastric distress/pain, gushing of fluid from the vagina, leaking of fluid from the vagina, low, dull backache, severe headache, swelling of the face, hands, or feet, vaginal bleeding, visual disturbances, spots before eyes, or blurry vision, and vomiting/diarrhea 2-3 days in a row Signs of Labor: bloody show, increase in strength or frequency of contractions, leaking amniotic fluid , and regular contractions Next Appointment: keep next scheduled appointment Consults: N/A Prescriptions Given: N/A Discharge: home Discharged by: Jennifer Chin RN 11/08/2024 1:31 PM documented in this encounter [facility] 11-08-2024 Plan of care note Problem: Pain Goal: Patient goal is pain score less than 4, able to rest, and participant in treatment plan as appropriate Description: INTERVENTIONS: 1. Encourage patient or legal sales representative womens health to report early pain and ask for pain medicine when needed 2. Assess pain using appropriate pain scale and include the scale used when documenting 3. Administer analgesics based on type and severity of pain and evaluate response within appropriate time frame 4. Implement non-pharmacological measures as appropriate and evaluate response 5. Consider cultural and social influences on pain and pain management 6. Notify LIP if interventions ineffective or patient reports new pain 7. Monitor vital signs including pulse ox, end-tidal CO2 based on pain intervention 8. Reassess pain per policy 9. Teach patient or legal sales representative womens health interventions for comforting Outcome: Progressing Note: Evaluation of progress towards goal: comfortable Additional Comments: [facility] 11-08-2024 Miscellaneous Notes Problem: Pain Goal: Patient goal is pain score less than 4, able to rest, and participant in treatment plan as appropriate Description: INTERVENTIONS: 1. Encourage patient or legal sales representative womens health to report early pain and ask for pain medicine when needed 2. Assess pain using appropriate pain scale and include the scale used when documenting 3. Administer analgesics based on type and severity of pain and evaluate response within appropriate time frame 4. Implement non-pharmacological measures as appropriate and evaluate response 5. Consider cultural and social influences on pain and pain management 6. Notify LIP if interventions ineffective or patient reports new pain 7. Monitor vital signs including pulse ox, end-tidal CO2 based on pain intervention 8. Reassess pain per policy 9. Teach patient or legal sales representative womens health interventions for comforting Outcome: Progressing Note: Evaluation of progress towards goal: comfortable Additional Comments: Problem: Pain Goal: Patient goal is pain score less than 4, able to rest, and participant in treatment plan as appropriate Description: INTERVENTIONS: 1. Encourage patient or legal sales representative womens health to report early pain and ask for pain medicine when needed 2. Assess pain using appropriate pain scale and include the scale used when documenting 3. Administer analgesics based on type and severity of pain and evaluate response within appropriate time frame 4. Implement non-pharmacological measures as appropriate and evaluate response 5. Consider cultural and social influences on pain and pain management 6. Notify LIP if interventions ineffective or patient reports new pain 7. Monitor vital signs including pulse ox, end-tidal CO2 based on pain intervention 8. Reassess pain per policy 9. Teach patient or legal sales representative womens health interventions for comforting Outcome: Progressing Note: Evaluation of progress towards goal: comfortable Problem: Safety Goal: Patient will be injury free during hospitalization Description: INTERVENTIONS: 1. Assess patient's risk for falls and implement fall prevention plan of care per policy 2. Provide and maintain a safe environment 3. Proper use of double Identifiers 4. Medication administration using the 5 rights 5. Hand hygiene 6. Specimens are labeled at the bedside 7. Instruct patient/ patient sales representative womens health about use of safety devices 8. Include patient/ patient sales representative womens health in decisions related to safety Outcome: Progressing Note: Evaluation of progress towards goal: safety maintained Problem: Infection Goal: Absence of infection during hospitalization Description: INTERVENTIONS 1. Assess and monitor for signs and symptoms of infection. 2. Monitor lab/diagnostic results. 3. Monitor all insertion sites i.e., indwelling lines, tubes and drains. 4. Monitor endotracheal (as able) and nasal secretions for changes in amount and color. 5. Administer medications as ordered. 6. Instruct and encourage patient and family to use good hand hygiene technique. 7. Identify and instruct patient/patient sales representative womens health in use of appropriate isolation precautions for identified infection/symptoms. 8. Provide and discuss with patient/patient sales representative womens health on educational MDRO sheet. 9. Encourage and monitor nutritional status daily and consult sugar cane planter if indicated. 10. Implement neutropenic guidelines as needed. Outcome: Progressing Note: Evaluation of progress towards goal: no s/s infection Problem: Knowledge Deficit Goal: Patient/patient sales representative womens health demonstrates understanding of disease process, treatment plan, medications, and discharge instructions Description: INTERVENTIONS 1. Complete learning assessment and assess knowledge base 2. Provide teaching at level of understanding 3. Provide teaching via preferred learning method(s) Outcome: Progressing Note: Evaluation of progress towards goal: Verbalizing and understands/compliant with poc Problem: Discharge Planning Goal: Discharge to post-acute care, other facility, or home with appropriate resources Description: Patient's goal is: INTERVENTIONS 1. Conduct assessment to determine patient/family and health care team treatment goals, and need for post-acute services based on payer coverage, community resources, and patient preferences, and barriers to discharge 2. Coordinate with Social work, Care Navigation, and Utilization Review to arrange appropriate level of services according to patient's needs based on patient preference and payer coverage in collaboration with the physician and health care team 3. Address psychosocial, clinical, and financial barriers to discharge as identified in assessment in conjunction with the patient/family and health care team 4. Consult appropriate ancillary services (i.e.. PT/OT/ST, etc) as needed 5. Communicate with and update the patient/family, physician, and health care team regarding progress on the discharge plan 6. Identify discharge learning needs (meds, wound care, etc). 7. Arrange for needed discharge transportation as appropriate Outcome: Progressing Note: Evaluation of progress towards goal: awaiting for Drs to round tomorrow for POC Problem: Moderate - High Risk Fall Score Description: Solis Fall Score of =/> 25 or indicated by [facility] Assessment Goal: Patient should be free from fall Description: Interventions: 1. [place] to environment 2. Hourly rounds addressing the 4 P's (Pain, Positioning, Possessions, Potty) 3. Clear area of hazards (spills, clutter, electrical cords, unnecessary equipment) 4. Place equipment (bed & TV controls, call light, phone, urinal) within reach 5. Encourage patient to wear glasses and hearing aides as appropriate 6. Maintain bed in lowest position 7. Lock wheels on bed/wheelchair 8. Provide adequate lighting, including night light 9. Assess need for additional bedding, food/fluids, pain med's prior to sleep/routinely 10. Provide gripper slippers or personal non-skid footwear 11. Teach patient and patient sales representative womens health to maintain environment for safety and engage in all aspects of fall prevention program 12. Remind patient to call for help before getting out of bed 13. Initiate bed/chair/exit alarms supportive devices as appropriate, (chair wedge, no-skid floor mat, raised edge mattress, hip protectors) 14. Locate patient bed assignment for optimal visualization 15. Evaluate and identify Safe Patient Handling Equipment needs 16. Provide supervision when out of bed or chair 17. Utilize gait belt as needed to assist with ambulation 18. Place adaptive equipment (cane, walker) within reach 19. Request patient sales representative womens health bring adaptive equipment/mobility aids from home or obtain and provide as needed 20. Consult pharmacy regarding effects of med's affecting mobility, cognition, and alternatives 21. Obtain physician order for PT if risk factors associated with mobility are present 22. Obtain physician order for OT as appropriate 23. Utilize diversional activities 24. Educate patient and patient sales representative womens health how to maintain a safe environment during visitation times (notify nurse prior to leaving bedside) 25. Consider appropriateness of medical or non-certified medical technician assistant 26. Set up voiding schedule as appropriate (every 2 hours) Outcome: Progressing Note: Evaluation of progress towards goal: safety maintained Problem: Pain Goal: Patient goal is pain score less than 4, able to rest, and participant in treatment plan as appropriate Description: INTERVENTIONS: 1. Encourage patient or legal sales representative womens health to report early pain and ask for pain medicine when needed 2. Assess pain using appropriate pain scale and include the scale used when documenting 3. Administer analgesics based on type and severity of pain and evaluate response within appropriate time frame 4. Implement non-pharmacological measures as appropriate and evaluate response 5. Consider cultural and social influences on pain and pain management 6. Notify LIP if interventions ineffective or patient reports new pain 7. Monitor vital signs including pulse ox, end-tidal CO2 based on pain intervention 8. Reassess pain per policy 9. Teach patient or legal sales representative womens health interventions for comforting Outcome: Progressing Note: Evaluation of progress towards goal: comfortable Problem: Safety Goal: Patient will be injury free during hospitalization Description: INTERVENTIONS: 1. Assess patient's risk for falls and implement fall prevention plan of care per policy 2. Provide and maintain a safe environment 3. Proper use of double Identifiers 4. Medication administration using the 5 rights 5. Hand hygiene 6. Specimens are labeled at the bedside 7. Instruct patient/ patient sales representative womens health about use of safety devices 8. Include patient/ patient sales representative womens health in decisions related to safety Outcome: Progressing Note: Evaluation of progress towards goal: safety maintained Problem: Infection Goal: Absence of infection during hospitalization Description: INTERVENTIONS 1. Assess and monitor for signs and symptoms of infection. 2. Monitor lab/diagnostic results. 3. Monitor all insertion sites i.e., indwelling lines, tubes and drains. 4. Monitor endotracheal (as able) and nasal secretions for changes in amount and color. 5. Administer medications as ordered. 6. Instruct and encourage patient and family to use good hand hygiene technique. 7. Identify and instruct patient/patient sales representative womens health in use of appropriate isolation precautions for identified infection/symptoms. 8. Provide and discuss with patient/patient sales representative womens health on educational MDRO sheet. 9. Encourage and monitor nutritional status daily and consult sugar cane planter if indicated. 10. Implement neutropenic guidelines as needed. Outcome: Progressing Note: Evaluation of progress towards goal: no s/s infection Problem: Knowledge Deficit Goal: Patient/patient sales representative womens health demonstrates understanding of disease process, treatment plan, medications, and discharge instructions Description: INTERVENTIONS 1. Complete learning assessment and assess knowledge base 2. Provide teaching at level of understanding 3. Provide teaching via preferred learning method(s) Outcome: Progressing Note: Evaluation of progress towards goal: Verbalizing and understands/compliant with poc Problem: Discharge Planning Goal: Discharge to post-acute care, other facility, or home with appropriate resources Description: Patient's goal is: INTERVENTIONS 1. Conduct assessment to determine patient/family and health care team treatment goals, and need for post-acute services based on payer coverage, community resources, and patient preferences, and barriers to discharge 2. Coordinate with Social work, Care Navigation, and Utilization Review to arrange appropriate level of services according to patient's needs based on patient preference and payer coverage in collaboration with the physician and health care team 3. Address psychosocial, clinical, and financial barriers to discharge as identified in assessment in conjunction with the patient/family and health care team 4. Consult appropriate ancillary services (i.e.. PT/OT/ST, etc) as needed 5. Communicate with and update the patient/family, physician, and health care team regarding progress on the discharge plan 6. Identify discharge learning needs (meds, wound care, etc). 7. Arrange for needed discharge transportation as appropriate Outcome: Progressing Note: Evaluation of progress towards goal: awaiting for Drs to round tomorrow for POC Problem: Moderate - High Risk Fall Score Description: Solis Fall Score of =/> 25 or indicated by [facility] Assessment Goal: Patient should be free from fall Description: Interventions: 1. [place] to environment 2. Hourly rounds addressing the 4 P's (Pain, Positioning, Possessions, Potty) 3. Clear area of hazards (spills, clutter, electrical cords, unnecessary equipment) 4. Place equipment (bed & TV controls, call light, phone, urinal) within reach 5. Encourage patient to wear glasses and hearing aides as appropriate 6. Maintain bed in lowest position 7. Lock wheels on bed/wheelchair 8. Provide adequate lighting, including night light 9. Assess need for additional bedding, food/fluids, pain med's prior to sleep/routinely 10. Provide gripper slippers or personal non-skid footwear 11. Teach patient and patient sales representative womens health to maintain environment for safety and engage in all aspects of fall prevention program 12. Remind patient to call for help before getting out of bed 13. Initiate bed/chair/exit alarms supportive devices as appropriate, (chair wedge, no-skid floor mat, raised edge mattress, hip protectors) 14. Locate patient bed assignment for optimal visualization 15. Evaluate and identify Safe Patient Handling Equipment needs 16. Provide supervision when out of bed or chair 17. Utilize gait belt as needed to assist with ambulation 18. Place adaptive equipment (cane, walker) within reach 19. Request patient sales representative womens health bring adaptive equipment/mobility aids from home or obtain and provide as needed 20. Consult pharmacy regarding effects of med's affecting mobility, cognition, and alternatives 21. Obtain physician order for PT if risk factors associated with mobility are present 22. Obtain physician order for OT as appropriate 23. Utilize diversional activities 24. Educate patient and patient sales representative womens health how to maintain a safe environment during visitation times (notify nurse prior to leaving bedside) 25. Consider appropriateness of medical or non-certified medical technician assistant 26. Set up voiding schedule as appropriate (every 2 hours) Outcome: Progressing Note: Evaluation of progress towards goal: safety maintained Problem: Discharge Planning Goal: Discharge to post-acute care, other facility, or home with appropriate resources Description: Patient's goal is: INTERVENTIONS 1. Conduct assessment to determine patient/family and health care team treatment goals, and need for post-acute services based on payer coverage, community resources, and patient preferences, and barriers to discharge 2. Coordinate with Social work, Care Navigation, and Utilization Review to arrange appropriate level of services according to patient's needs based on patient preference and payer coverage in collaboration with the physician and health care team 3. Address psychosocial, clinical, and financial barriers to discharge as identified in assessment in conjunction with the patient/family and health care team 4. Consult appropriate ancillary services (i.e.. PT/OT/ST, etc) as needed 5. Communicate with and update the patient/family, physician, and health care team regarding progress on the discharge plan 6. Identify discharge learning needs (meds, wound care, etc). 7. Arrange for needed discharge transportation as appropriate Outcome: Progressing Note: Evaluation of progress towards goal: awaiting for Drs to round tomorrow for POC Additional Comments: Problem: Pain Goal: Patient goal is pain score less than 4, able to rest, and participant in treatment plan as appropriate Description: INTERVENTIONS: 1. Encourage patient or legal sales representative womens health to report early pain and ask for pain medicine when needed 2. Assess pain using appropriate pain scale and include the scale used when documenting 3. Administer analgesics based on type and severity of pain and evaluate response within appropriate time frame 4. Implement non-pharmacological measures as appropriate and evaluate response 5. Consider cultural and social influences on pain and pain management 6. Notify LIP if interventions ineffective or patient reports new pain 7. Monitor vital signs including pulse ox, end-tidal CO2 based on pain intervention 8. Reassess pain per policy 9. Teach patient or legal sales representative womens health interventions for comforting Outcome: Progressing Note: Evaluation of progress towards goal: comfortable Additional Comments: documented in this encounter [facility] 11-08-2024 History of Presen t illness Narrative Maternal- Medicine Minniemerced Bunch is a 29 y.o., at 21w6d, admitted for labor in current , which is monochorionic diamniotic twin gestation Doing well. No c/o. Denies contractions, bleeding, leaking fluid. Appreciates active movement x 2 Denies fever/chills, N/V VS BP 99/57 Pulse 74 Temp 36.8 C (98.2 F) (Oral) Resp 14 Ht 157.5 cm (5' 2 ) Wt 65.3 kg (144 lb) LMP 06/08/2024 BMI 26.34 kg/m Gen: NAD, sitting up comfortably in bed Abdomen: gravid, soft, NT Ext: b/l LEs without edema, erythema, tenderness PLAN: contractions - contractions stable, last SVE closed. Cervical length on TVUS 3.0 yesterday - monitor for labor Patient is comfortable, not in pain, without contractions at this time. Last cervical exam closed. Reviewed patient is ok for discharge with strict precautions to return to hospital with any pain, contractions, vaginal bleeding, or leaking fluid. Discussed that we recommend she continue with accommodations at work - patient should not work without these being abided by given she is at high risk for labor and complications given her monochorionic diamniotic twin gestation and contractions in current . Patient asked regarding viability - reviewed that if patient were to have an increased concern for labor, we will discuss risks and options in detail in regards to varying gestations amongst patient, MFM, and NICU Monochorionic diamniotic twin gestation, FGR on Baby A - continue with growth US q4 weeks and weekly dopplers Vasa previa not seen on US performed on 11/07 Patient is scheduled for [facility] US and appt with MFM on 11/[address] Tim Henning PA-C Maternal- Medicine Office phone: [phone] Genevieve Henning PA-C 11/08/24 0906 Antepartum Progress Note Subjective: Minnie Bunch is a 29 y.o. with an Estimated Date of Delivery: 03/15/25 at 21w6d a/w contractions. No acute events overnight. Patient doing well overall. Patient reports rare contractions overnight, denies loss of fluid, denies vaginal bleeding, reports movement. Vitals: Vitals: 11/07/24 0634 11/07/24 0648 11/07/24 1345 BP: 111/72 113/64 Pulse: 83 81 Resp: 20 16 Temp: 37 C (98.6 F) 37.1 C (98.8 F) TempSrc: Oral Oral Weight: 65.3 kg (144 lb) Height: 157.5 cm (5' 2 ) Physical Exam: Blood pressure 113/64, pulse 81, temperature 37.1 C (98.8 F), temperature source Oral, resp. rate 16, height 157.5 cm (5' 2 ), weight 65.3 kg (144 lb), last menstrual period 06/08/2024. General: Patient is AAO X 3 Abd: soft, no guarding, non tender, no rebound, and not distended, gravid Ext: no edema and negative homans FHT: 146/138 TOCO: none Current Medications: Current Facility-Administered Medications: acetaminophen (TYLENOL EXTRA STRENGTH) tablet 1,000 mg, 1,000 mg, oral, PRN, Chloé French DO busPIRone (BUSPAR) tablet 5 mg, 5 mg, oral, Daily, Chloé French DO calcium carbonate (TUMS) 200 mg elemental (500 mg) chewable tablet 200 mg, 200 mg, oral, Q8H PRN, Melody Estes MD escitalopram (LEXAPRO) tablet 20 mg, 20 mg, oral, Daily, Chloé French DO lactated ringers infusion, 250 mL/hr, intravenous, Continuous PRN, Melody Estes MD lactated ringers infusion, 125 mL/hr, intravenous, Continuous, Melody Estes MD, Last Rate: 125 mL/hr at 11/07/24 1020, 125 mL/hr at 11/07/24 1020 PNV,calcium 78-oavy-aawza acid ( PLUS) 27 mg iron- 1 mg tablet 1 tablet, 1 tablet, oral, Daily, Melody Estes MD sodium chloride 0.9 % infusion, 20 mL/hr, intravenous, Continuous PRN, Melody Estes MD Laboratory Results: No intake or output data in the 24 hours ending 11/07/24 1443 Lab Results Component Value Date WBC 9.6 11/07/2024 HGB 11.3 (L) 11/07/2024 HCT 33.3 (L) 11/07/2024 MCV 86 11/07/2024 PLT 253 11/07/2024 Lab Results Component Value Date GLU 88 09/29/2018 CALCIUM 9.8 12/27/2016 K 3.9 12/27/2016 CO2 25 12/27/2016 BUN 10 12/27/2016 CREATININE 0.58 12/27/2016 Lab Results Component Value Date ALBUMIN 4.6 12/27/2016 AST 17 12/27/2016 ALT 15 12/27/2016 ALKALINEPHO 67 11/17/2014 TOTALPROTEI 7.8 12/27/2016 A/P Minnie Bunch, 29 y.o. with an Estimated Date of Delivery: 03/15/25 at 21w6d, admitted with contractions 1. contractions - s/p fluid hydration - TOCO: none - CL 3cm - improved overnight, rare contractions 2. [place] di twins 3. H/o vasa previa - appears resolved on MFM US 4. FGR Baby A 5. Routine antepartum care - FHT QD - Reg diet - Rh+ - MDM consulted - MFM US 11/07: baby A ceph, post, dvp wnl baby B: transverse maternal right, upper left, post, dvp wnl. Velamentous cord insertion measures 2.78 cm away from internal os. Vasa Previa appears resolved on today's exam. MFM US 11/01: Baby A DVP 4.1cm cephalic nl dopplers, Baby B 4.2cm breech, nl dopplers MFM US 10/27: Baby A EFW 262g (7%), AC 13cm (14%), DVP 3.4cm, post pl, ceph. Vasa previa. Baby B: EFW 286g (15%), AC 14cm (36%), DVP 3.4cm, post pl. CL 3.57cm, discordance 8.5% DC today pending MFM recommendations Chloé French DO Dietary Aide Resident, PGY-2 Cosigned by Parminder Negro MD at 11/08/2024 2:37 PM EDT Associated attestation - Parminder Negro MD - 11/08/2024 2:37 PM EDT Attending Attestation: I saw the patient. I performed the critical/luis portions of the service. I was directly involved in the management and treatment plan of the patient. I reviewed the resident's note. . Additional Notes/Findings: Results from last 7 days Lab Units 11/07/24 1003 WBC x10E9/L 9.6 HEMOGLOBIN g/dL 11.3* HEMATOCRIT % 33.3* PLATELETS X10E9/L 253 No acute events overnight Assessment 1. at 21 weeks 6 days 2. contractions stable no evidence of of labor at this point 3. [place] amniotic diamniotic twin Plan As patient does not appear to be in active labor will discharge home today after MFM ultrasound documented in this encounter [facility] 11-08-2024 Hospital course Narrative Discharge Summary Reason for admission: contractoins Principal diagnosis: Intrauterine at 21w6d Secondary diagnosis: 1. [place]-di twins 2. Vasa previa baby A, appears resolved 3. FGR baby A nl dopplers Procedures: MF ultrasound Hospital course: Minnie Bunch is a 29 y.o. who presented with contractions. VNAP, GCCT, GBS, UA, urine culture all collected. She received fluid hydration and was on intermittent TOCO. Contractions resolved and were rare after this. She had an MFM US which showed a CL of 3cm and possible resolution of vasa previa. She was restarted on her home medications. MFM was consulted. She was given strict return precautions. Laboratory Results: Lab Results Component Value Date WBC 9.6 11/07/2024 HGB 11.3 (L) 11/07/2024 HCT 33.3 (L) 11/07/2024 MCV 86 11/07/2024 PLT 253 11/07/2024 Lab Results Component Value Date GLU 88 09/29/2018 CALCIUM 9.8 12/27/2016 K 3.9 12/27/2016 CO2 25 12/27/2016 BUN 10 12/27/2016 CREATININE 0.58 12/27/2016 Recent Results (from the past 72 hours) Urinalysis Collection Time: 11/07/24 7:39 AM Specimen: Urine Result Value Ref Range COLOR Colorless Yellow, Colorless TURBIDITY Hazy (A) Clear SPECIFIC GRAVITY 1.003 1.003 - 1.035 NITRITE Negative Negative PH,URINE 6.5 5.0 - 8.5 LEUKOCYTE ESTERASE Small (A) Negative PROTEIN Negative Negative KETONES (URINE) Negative Negative UROBILINOGEN <1.1 eu/dL <1.1 eu/dL BILIRUBIN (URINE) Negative Negative BLOOD/HGB Negative Negative MUCOUS Present (A) None R.B.CELLS 3 0 - 5 SQUAMOUS EPITHELIUM 9 (H) 0 - 5 W.B.CELLS 9 (H) 0 - 5 GLUCOSE (URINE) Negative Negative Er Extra Urine Collection Time: 11/07/24 7:39 AM Specimen: Urine, Clean Catch Midstream Result Value Ref Range Extra Tube Auto Resulted Vaginitis Panel PCR Collection Time: 11/07/24 8:50 AM Specimen: Vagina; Swab Result Value Ref Range BACT. VAGINOSIS DNA Not Detected Not Detected ANDREIA SPECIES DNA Not Detected Not Detected ANDREIA KRUSEI DNA Not Detected Not Detected ANDREIA GLABRATA DNA Not Detected Not Detected TRICHOMONAS VAG DNA Not Detected Not Detected Type and screen(includes indirect pedro) Collection Time: 11/07/24 10:03 AM Result Value Ref Range ABO A RH Positive Antibody Screen Negative CBC auto differential Collection Time: 11/07/24 10:03 AM Result Value Ref Range WBC 9.6 4 - 11 x10E9/L RBC Count 3.85 3.8 - 5.2 X10E12/L Hemoglobin 11.3 (L) 11.7 - 15.5 g/dL Hematocrit 33.3 (L) 35 - 47 % MCV 86 80 - 100 fL MCH 29.2 27 - 34 pg MCHC 33.9 32 - 36 g/dL RDW 13.8 11.5 - 15 % Platelet Count 253 150 - 450 X10E9/L MPV 7.4 7 - 12 fL Neutrophils Relative 84.5 % Lymphocytes Relative 9.8 % Monocytes Relative 5.5 % Eosinophils Relative 0.1 % Basophils Relative 0.1 % Neutrophils Absolute (A) 8.1 (H) 1.5 - 6.6 10*3/uL Lymphocytes Absolute 0.9 (L) 1.0 - 3.5 10*3/uL Monocytes Absolute 0.5 0.0 - 0.9 10*3/uL Eosinophils Absolute 0.0 0.0 - 0.4 10*3/uL Basophils Absolute 0.0 0.0 - 0.2 10*3/uL Differential Type AUTOMATED DIFFERENTIAL SST TOP Collection Time: 11/07/24 10:18 AM Result Value Ref Range Extra Tube Auto Resulted ABO Rh Repeat Collection Time: 11/07/24 11:18 AM Result Value Ref Range ABO A RH Positive Imaging Results: [facility] US 11/07: CL: 3cm Baby A ceph, post, dvp wnl baby B: transverse maternal right, upper left, post, dvp wnl. Velamentous cord insertion measures 2.78 cm away from internal os. Vasa Previa appears resolved on today's exam. Prescriptions given at discharge: none Condition of patient at discharge: Stable, good. Special instructions to the patient family: Please call our office ([phone]) or come to triage if you experience any of the following: Leaking or gush of fluid Vaginal bleeding Decreased movement if you are less than 37 weeks () and have more than 5 contractions per hour If you are greater than 37 weeks (term ) and have contractions that are at least 5 minutes apart, lasting a minute for 1 hour Pain or burning with urination Constant headache or dizziness Bad fever or chills Continuous severe pain in your abdomen Please perform kick counts if you are greater than 28 weeks of gestation (thrid trimester): Near your meal time in the morning and in the evening, lie down on yoru left side. Pick a time when your baby is awake. Note the time and start counting each time the baby moves The baby should move 5 times in 30 minutes, if the baby has not done this get up and walk around for a few minutes and try again If the baby still has not moved five times in 30 minutes then call your doctor Recommendations for follow-up care: 11/15 [facility] Disposition: home - Chloé French DO 11/08/24 7:39 AM Cosigned by Parminder Negro MD at 11/08/2024 1:36 PM EDT Associated attestation - Parminder Negro MD - 11/08/2024 1:36 PM EDT I have reviewed the discharge summary created by the resident. I agree with summary, follow-up and instructions. documented in this encounter [facility] 11-07-2024 Plan of care note Problem: Pain Goal: Patient goal is pain score less than 4, able to rest, and participant in treatment plan as appropriate Description: INTERVENTIONS: 1. Encourage patient or legal sales representative womens health to report early pain and ask for pain medicine when needed 2. Assess pain using appropriate pain scale and include the scale used when documenting 3. Administer analgesics based on type and severity of pain and evaluate response within appropriate time frame 4. Implement non-pharmacological measures as appropriate and evaluate response 5. Consider cultural and social influences on pain and pain management 6. Notify LIP if interventions ineffective or patient reports new pain 7. Monitor vital signs including pulse ox, end-tidal CO2 based on pain intervention 8. Reassess pain per policy 9. Teach patient or legal sales representative womens health interventions for comforting Outcome: Progressing Note: Evaluation of progress towards goal: comfortable Problem: Safety Goal: Patient will be injury free during hospitalization Description: INTERVENTIONS: 1. Assess patient's risk for falls and implement fall prevention plan of care per policy 2. Provide and maintain a safe environment 3. Proper use of double Identifiers 4. Medication administration using the 5 rights 5. Hand hygiene 6. Specimens are labeled at the bedside 7. Instruct patient/ patient sales representative womens health about use of safety devices 8. Include patient/ patient sales representative womens health in decisions related to safety Outcome: Progressing Note: Evaluation of progress towards goal: safety maintained Problem: Infection Goal: Absence of infection during hospitalization Description: INTERVENTIONS 1. Assess and monitor for signs and symptoms of infection. 2. Monitor lab/diagnostic results. 3. Monitor all insertion sites i.e., indwelling lines, tubes and drains. 4. Monitor endotracheal (as able) and nasal secretions for changes in amount and color. 5. Administer medications as ordered. 6. Instruct and encourage patient and family to use good hand hygiene technique. 7. Identify and instruct patient/patient sales representative womens health in use of appropriate isolation precautions for identified infection/symptoms. 8. Provide and discuss with patient/patient sales representative womens health on educational MDRO sheet. 9. Encourage and monitor nutritional status daily and consult sugar cane planter if indicated. 10. Implement neutropenic guidelines as needed. Outcome: Progressing Note: Evaluation of progress towards goal: no s/s infection Problem: Knowledge Deficit Goal: Patient/patient sales representative womens health demonstrates understanding of disease process, treatment plan, medications, and discharge instructions Description: INTERVENTIONS 1. Complete learning assessment and assess knowledge base 2. Provide teaching at level of understanding 3. Provide teaching via preferred learning method(s) Outcome: Progressing Note: Evaluation of progress towards goal: Verbalizing and understands/compliant with poc Problem: Discharge Planning Goal: Discharge to post-acute care, other facility, or home with appropriate resources Description: Patient's goal is: INTERVENTIONS 1. Conduct assessment to determine patient/family and health care team treatment goals, and need for post-acute services based on payer coverage, community resources, and patient preferences, and barriers to discharge 2. Coordinate with Social work, Care Navigation, and Utilization Review to arrange appropriate level of services according to patient's needs based on patient preference and payer coverage in collaboration with the physician and health care team 3. Address psychosocial, clinical, and financial barriers to discharge as identified in assessment in conjunction with the patient/family and health care team 4. Consult appropriate ancillary services (i.e.. PT/OT/ST, etc) as needed 5. Communicate with and update the patient/family, physician, and health care team regarding progress on the discharge plan 6. Identify discharge learning needs (meds, wound care, etc). 7. Arrange for needed discharge transportation as appropriate Outcome: Progressing Note: Evaluation of progress towards goal: awaiting for Drs to round tomorrow for POC Problem: Moderate - High Risk Fall Score Description: Solis Fall Score of =/> 25 or indicated by [facility] Assessment Goal: Patient should be free from fall Description: Interventions: 1. [place] to environment 2. Hourly rounds addressing the 4 P's (Pain, Positioning, Possessions, Potty) 3. Clear area of hazards (spills, clutter, electrical cords, unnecessary equipment) 4. Place equipment (bed & TV controls, call light, phone, urinal) within reach 5. Encourage patient to wear glasses and hearing aides as appropriate 6. Maintain bed in lowest position 7. Lock wheels on bed/wheelchair 8. Provide adequate lighting, including night light 9. Assess need for additional bedding, food/fluids, pain med's prior to sleep/routinely 10. Provide gripper slippers or personal non-skid footwear 11. Teach patient and patient sales representative womens health to maintain environment for safety and engage in all aspects of fall prevention program 12. Remind patient to call for help before getting out of bed 13. Initiate bed/chair/exit alarms supportive devices as appropriate, (chair wedge, no-skid floor mat, raised edge mattress, hip protectors) 14. Locate patient bed assignment for optimal visualization 15. Evaluate and identify Safe Patient Handling Equipment needs 16. Provide supervision when out of bed or chair 17. Utilize gait belt as needed to assist with ambulation 18. Place adaptive equipment (cane, walker) within reach 19. Request patient sales representative womens health bring adaptive equipment/mobility aids from home or obtain and provide as needed 20. Consult pharmacy regarding effects of med's affecting mobility, cognition, and alternatives 21. Obtain physician order for PT if risk factors associated with mobility are present 22. Obtain physician order for OT as appropriate 23. Utilize diversional activities 24. Educate patient and patient sales representative womens health how to maintain a safe environment during visitation times (notify nurse prior to leaving bedside) 25. Consider appropriateness of medical or non-certified medical technician assistant 26. Set up voiding schedule as appropriate (every 2 hours) Outcome: Progressing Note: Evaluation of progress towards goal: safety maintained Problem: Pain Goal: Patient goal is pain score less than 4, able to rest, and participant in treatment plan as appropriate Description: INTERVENTIONS: 1. Encourage patient or legal sales representative womens health to report early pain and ask for pain medicine when needed 2. Assess pain using appropriate pain scale and include the scale used when documenting 3. Administer analgesics based on type and severity of pain and evaluate response within appropriate time frame 4. Implement non-pharmacological measures as appropriate and evaluate response 5. Consider cultural and social influences on pain and pain management 6. Notify LIP if interventions ineffective or patient reports new pain 7. Monitor vital signs including pulse ox, end-tidal CO2 based on pain intervention 8. Reassess pain per policy 9. Teach patient or legal sales representative womens health interventions for comforting Outcome: Progressing Note: Evaluation of progress towards goal: comfortable Problem: Safety Goal: Patient will be injury free during hospitalization Description: INTERVENTIONS: 1. Assess patient's risk for falls and implement fall prevention plan of care per policy 2. Provide and maintain a safe environment 3. Proper use of double Identifiers 4. Medication administration using the 5 rights 5. Hand hygiene 6. Specimens are labeled at the bedside 7. Instruct patient/ patient sales representative womens health about use of safety devices 8. Include patient/ patient sales representative womens health in decisions related to safety Outcome: Progressing Note: Evaluation of progress towards goal: safety maintained Problem: Infection Goal: Absence of infection during hospitalization Description: INTERVENTIONS 1. Assess and monitor for signs and symptoms of infection. 2. Monitor lab/diagnostic results. 3. Monitor all insertion sites i.e., indwelling lines, tubes and drains. 4. Monitor endotracheal (as able) and nasal secretions for changes in amount and color. 5. Administer medications as ordered. 6. Instruct and encourage patient and family to use good hand hygiene technique. 7. Identify and instruct patient/patient sales representative womens health in use of appropriate isolation precautions for identified infection/symptoms. 8. Provide and discuss with patient/patient sales representative womens health on educational MDRO sheet. 9. Encourage and monitor nutritional status daily and consult sugar cane planter if indicated. 10. Implement neutropenic guidelines as needed. Outcome: Progressing Note: Evaluation of progress towards goal: no s/s infection Problem: Knowledge Deficit Goal: Patient/patient sales representative womens health demonstrates understanding of disease process, treatment plan, medications, and discharge instructions Description: INTERVENTIONS 1. Complete learning assessment and assess knowledge base 2. Provide teaching at level of understanding 3. Provide teaching via preferred learning method(s) Outcome: Progressing Note: Evaluation of progress towards goal: Verbalizing and understands/compliant with poc Problem: Discharge Planning Goal: Discharge to post-acute care, other facility, or home with appropriate resources Description: Patient's goal is: INTERVENTIONS 1. Conduct assessment to determine patient/family and health care team treatment goals, and need for post-acute services based on payer coverage, community resources, and patient preferences, and barriers to discharge 2. Coordinate with Social work, Care Navigation, and Utilization Review to arrange appropriate level of services according to patient's needs based on patient preference and payer coverage in collaboration with the physician and health care team 3. Address psychosocial, clinical, and financial barriers to discharge as identified in assessment in conjunction with the patient/family and health care team 4. Consult appropriate ancillary services (i.e.. PT/OT/ST, etc) as needed 5. Communicate with and update the patient/family, physician, and health care team regarding progress on the discharge plan 6. Identify discharge learning needs (meds, wound care, etc). 7. Arrange for needed discharge transportation as appropriate Outcome: Progressing Note: Evaluation of progress towards goal: awaiting for Drs to round tomorrow for POC Problem: Moderate - High Risk Fall Score Description: Solis Fall Score of =/> 25 or indicated by [facility] Assessment Goal: Patient should be free from fall Description: Interventions: 1. [place] to environment 2. Hourly rounds addressing the 4 P's (Pain, Positioning, Possessions, Potty) 3. Clear area of hazards (spills, clutter, electrical cords, unnecessary equipment) 4. Place equipment (bed & TV controls, call light, phone, urinal) within reach 5. Encourage patient to wear glasses and hearing aides as appropriate 6. Maintain bed in lowest position 7. Lock wheels on bed/wheelchair 8. Provide adequate lighting, including night light 9. Assess need for additional bedding, food/fluids, pain med's prior to sleep/routinely 10. Provide gripper slippers or personal non-skid footwear 11. Teach patient and patient sales representative womens health to maintain environment for safety and engage in all aspects of fall prevention program 12. Remind patient to call for help before getting out of bed 13. Initiate bed/chair/exit alarms supportive devices as appropriate, (chair wedge, no-skid floor mat, raised edge mattress, hip protectors) 14. Locate patient bed assignment for optimal visualization 15. Evaluate and identify Safe Patient Handling Equipment needs 16. Provide supervision when out of bed or chair 17. Utilize gait belt as needed to assist with ambulation 18. Place adaptive equipment (cane, walker) within reach 19. Request patient sales representative womens health bring adaptive equipment/mobility aids from home or obtain and provide as needed 20. Consult pharmacy regarding effects of med's affecting mobility, cognition, and alternatives 21. Obtain physician order for PT if risk factors associated with mobility are present 22. Obtain physician order for OT as appropriate 23. Utilize diversional activities 24. Educate patient and patient sales representative womens health how to maintain a safe environment during visitation times (notify nurse prior to leaving bedside) 25. Consider appropriateness of medical or non-certified medical technician assistant 26. Set up voiding schedule as appropriate (every 2 hours) Outcome: Progressing Note: Evaluation of progress towards goal: safety maintained Problem: Discharge Planning Goal: Discharge to post-acute care, other facility, or home with appropriate resources Description: Patient's goal is: INTERVENTIONS 1. Conduct assessment to determine patient/family and health care team treatment goals, and need for post-acute services based on payer coverage, community resources, and patient preferences, and barriers to discharge 2. Coordinate with Social work, Care Navigation, and Utilization Review to arrange appropriate level of services according to patient's needs based on patient preference and payer coverage in collaboration with the physician and health care team 3. Address psychosocial, clinical, and financial barriers to discharge as identified in assessment in conjunction with the patient/family and health care team 4. Consult appropriate ancillary services (i.e.. PT/OT/ST, etc) as needed 5. Communicate with and update the patient/family, physician, and health care team regarding progress on the discharge plan 6. Identify discharge learning needs (meds, wound care, etc). 7. Arrange for needed discharge transportation as appropriate Outcome: Progressing Note: Evaluation of progress towards goal: awaiting for Drs to round tomorrow for POC Additional Comments: [facility] 11-07-2024 Plan of care note Problem: Pain Goal: Patient goal is pain score less than 4, able to rest, and participant in treatment plan as appropriate Description: INTERVENTIONS: 1. Encourage patient or legal sales representative womens health to report early pain and ask for pain medicine when needed 2. Assess pain using appropriate pain scale and include the scale used when documenting 3. Administer analgesics based on type and severity of pain and evaluate response within appropriate time frame 4. Implement non-pharmacological measures as appropriate and evaluate response 5. Consider cultural and social influences on pain and pain management 6. Notify LIP if interventions ineffective or patient reports new pain 7. Monitor vital signs including pulse ox, end-tidal CO2 based on pain intervention 8. Reassess pain per policy 9. Teach patient or legal sales representative womens health interventions for comforting Outcome: Progressing Note: Evaluation of progress towards goal: comfortable Additional Comments: [facility] 11-07-2024 Consult note Associated Order (s): IP CONSULT TO MATERNAL MEDICINE Maternal- Medicine Attending: We discussed Minnie Bunch case at morning resident checkout and OB inpatient attending round. I have reviewed the patient's records then I have seen and examined this patient and discussed her history, physical exam, and assessment/plan with the residents, as well as coordination of care with her care team. I was directly involved in the management and treatment plan of the patient. I reviewed the resident's note. Gisel is well-known to our [facility] practice. She presented with complaints of contractions which for present on the monitor with no complaints of vaginal bleeding or leakage of fluid. She otherwise feels well this is complicated by a monochorionic diamniotic twin gestation with growth restriction of baby A. Her cervix appears long on transvaginal ultrasound and it appears that the Vasa previa has resolved. I would recommend following up on that at the next office scan as well. In light of her symptoms we will watch her overnight and if maternal and status continued to be reassuring she can be sent home Additional Notes/Findings: Results from last 7 days Lab Units 11/07/24 1003 WBC x10E9/L 9.6 HEMOGLOBIN g/dL 11.3* HEMATOCRIT % 33.3* PLATELETS X10E9/L 253 Invalid input(s): BRYON MCMAHAN MD [facility], the CDC, and other organizations representing maternal and public health professionals recommend that , , and lactating people and those considering receive the COVID-19 vaccination. Vaccination is the best method to reduce maternal and complications of SARS-CoV-2 infection. This document was created with [employer] technology. Though I make every effort to review the dictation as it is transcribed, on occasion the spoken word can be misinterpreted by the technology leading to inappropriate words, phrases, or sentences. This note is addressed to the requesting provider as a consultation for clinical guidance. Specific medical abbreviations are occasionally used and those are generally approved by the English?Board of?Obstetrics and?Gynecology?as well as?[place] s abbreviations. The above plan of care was based solely on the diagnoses for which a consultation was requested. ?More frequent testing may be indicated based on her other medical/obstetrical conditions. The management of other or medical conditions is beyond the scope of requested consultation and will continue to be followed by the primary transportation logistics internship or primary care provider. [facility] Work Phone: 11-07-2024 Consult note Associated Order (s): IP CONSULT TO MATERNAL MEDICINE Maternal- Medicine Attending: We discussed Minnie Salgadoanand case at morning resident checkout and OB inpatient attending round. I have reviewed the patient's records then I have seen and examined this patient and discussed her history, physical exam, and assessment/plan with the residents, as well as coordination of care with her care team. I was directly involved in the management and treatment plan of the patient. I reviewed the resident's note. Gisel is well-known to our [facility] practice. She presented with complaints of contractions which for present on the monitor with no complaints of vaginal bleeding or leakage of fluid. She otherwise feels well this is complicated by a monochorionic diamniotic twin gestation with growth restriction of baby A. Her cervix appears long on transvaginal ultrasound and it appears that the Vasa previa has resolved. I would recommend following up on that at the next office scan as well. In light of her symptoms we will watch her overnight and if maternal and status continued to be reassuring she can be sent home Additional Notes/Findings: Results from last 7 days Lab Units 11/07/24 1003 WBC x10E9/L 9.6 HEMOGLOBIN g/dL 11.3* HEMATOCRIT % 33.3* PLATELETS X10E9/L 253 Invalid input(s): BRYON MCMAHAN MD [facility], the CDC, and other organizations representing maternal and public health professionals recommend that , , and lactating people and those considering receive the COVID-19 vaccination. Vaccination is the best method to reduce maternal and complications of SARS-CoV-2 infection. This document was created with [employer] technology. Though I make every effort to review the dictation as it is transcribed, on occasion the spoken word can be misinterpreted by the technology leading to inappropriate words, phrases, or sentences. This note is addressed to the requesting provider as a consultation for clinical guidance. Specific medical abbreviations are occasionally used and those are generally approved by the English?Board of?Obstetrics and?Gynecology?as well as?[place] abbreviations. The above plan of care was based solely on the diagnoses for which a consultation was requested. ?More frequent testing may be indicated based on her other medical/obstetrical conditions. The management of other or medical conditions is beyond the scope of requested consultation and will continue to be followed by the primary transportation logistics internship or primary care provider. documented in this encounter [facility] 11-07-2024 History and physical note ObGyn History and Physical Chief Complaint: contractions SUBJECTIVE HPI Minnie Bunch is a 29 y.o. @ 21w5d who presents to triage with contractions. Patient states contractions started yesterday afternoon and have been consistent since. She states they are nonpainful but are present. She reports they occur every few minutes. She denies leakage of fluid or vaginal bleeding. She reports movement x2 complicated by: 1. [place]-di twins 2. Vasa previa baby A 3. FGR baby A nl dopplers Review of Systems - All pertinent positives are noted in the HPI. Other systems reviewed and are negative. Allergies No Known Allergies ObGyn Hx OB History Para Term AB Living 1 SAB IAB Ectopic Multiple Live Births # Outcome Date GA Lbr Efrain/2nd Weight Sex Type Anes PTL Lv 1 Current Medical Hx Past Medical History: Diagnosis Date Depression Migraines Trigeminal neuralgia Surgical Hx Past Surgical History: Procedure Laterality Date APPENDECTOMY WISDOM TOOTH EXTRACTION Family Hx Family History Problem Relation Age of Onset Hypertension Mother Hypertension Father Stroke Father Heart disease Father Cancer Maternal Aunt Lung cancer Maternal Grandmother Brain cancer Maternal Grandmother Diabetes Maternal Grandfather Heart disease Maternal Grandfather Lung cancer Paternal Grandmother Heart disease Paternal Grandfather Psychosocial Social History Socioeconomic History Marital status: Tobacco Use Smoking status: Never Smokeless tobacco: Never Vaping Use Vaping status: Never Used Substance and Sexual Activity Alcohol use: Not Currently Comment: RARE Drug use: No Sexual activity: Yes Social Drivers of Health Food Insecurity: No Food Insecurity (10/26/2024) Hunger Screening Food Insecurity - Worry: Never True Food Insecurity - Inability: Never True OBJECTIVE Vitals Vitals: 11/07/24 0634 11/07/24 0648 BP: 111/72 Pulse: 83 Resp: 20 Temp: 37 C (98.6 F) TempSrc: Oral Weight: 65.3 kg (144 lb) Height: 157.5 cm (5' 2 ) Physical Exam: Gen: NAD Abd: gravid, nontender Ext: no edema or redness in bilateral LE Neuro: AAOx3 SVE: closed FHT: Baby A 150bpm, Baby B 153bpm [place]: q2mins Labs Recent Results (from the past 36 hours) Urinalysis Collection Time: 11/07/24 7:39 AM Specimen: Urine Result Value Ref Range COLOR Colorless Yellow, Colorless TURBIDITY Hazy (A) Clear SPECIFIC GRAVITY 1.003 1.003 - 1.035 NITRITE Negative Negative PH,URINE 6.5 5.0 - 8.5 LEUKOCYTE ESTERASE Small (A) Negative PROTEIN Negative Negative KETONES (URINE) Negative Negative UROBILINOGEN <1.1 eu/dL <1.1 eu/dL BILIRUBIN (URINE) Negative Negative BLOOD/HGB Negative Negative MUCOUS Present (A) None R.B.CELLS 3 0 - 5 SQUAMOUS EPITHELIUM 9 (H) 0 - 5 W.B.CELLS 9 (H) 0 - 5 GLUCOSE (URINE) Negative Negative Er Extra Urine Collection Time: 11/07/24 7:39 AM Specimen: Urine, Clean Catch Midstream Result Value Ref Range Extra Tube Auto Resulted ABO/Rh: No results found for: ABOINTEP , RHINTEP Group B Strep: No results found for: EXTGBS Rubella: No results found for: RUBELLAIMMU Hepatitis B Surface Antigen: Lab Results Component Value Date HEPBSAG NEGATIVE 08/13/2024 HIV: Lab Results Component Value Date HIV4 NON REACTIVE 08/13/2024 RPR (VDRL): No results found for: SYPHILISTOT ASSESSMENT & PLAN Minniemerced Bunch is a 29 y.o. @ 21w5d who presents to triage with contractions in setting of mono/di twins 1. contractions - MFM US ordered - MFM consulted, appreciate recommendations - GCCT, Vaginitis, GBS collected - UA ordered with Ucx - Admit to special care due to preter contractions in setting of vasa previa, mono di twins with FGR - continuous toco - s/p fluid bolus, continue IVF 2. Routine antepartum care - CLD - MFM US 11/01: Baby A DVP 4.1cm cephalic nl dopplers, Baby B 4.2cm breech, nl dopplers - MFM US 10/27: Baby A EFW 262g (7%), AC 13cm (14%), DVP 3.4cm, post pl, ceph. Vasa previa. Baby B: EFW 286g (15%), AC 14cm (36%), DVP 3.4cm, post pl. CL 3.57cm, discordance 8.5% Pt discussed with Dr. Julio Estes MD Dietary Aide Resident, PGY-3 Cosigned by Lynne Kim MD at 11/07/2024 10:55 AM EDT Associated attestation - Lynne Kim MD - 11/07/2024 10:55 AM EDT Attending Attestation: I saw the patient. I performed the critical/luis portions of the service. I was directly involved in the management and treatment plan of the patient. I reviewed the resident's note. Additional Notes/Findings: Will observe d/t vasa previa, twins, contractions. MFM consulted, recs appreciated. Lynne Kim MD [facility] Work Phone: 11-07-2024 History and physical note ObGyn History and Physical Chief Complaint: contractions SUBJECTIVE HPI Minnie Bunch is a 29 y.o. @ 21w5d who presents to triage with contractions. Patient states contractions started yesterday afternoon and have been consistent since. She states they are nonpainful but are present. She reports they occur every few minutes. She denies leakage of fluid or vaginal bleeding. She reports movement x2 complicated by: 1. [place]-di twins 2. Vasa previa baby A 3. FGR baby A nl dopplers Review of Systems - All pertinent positives are noted in the HPI. Other systems reviewed and are negative. Allergies No Known Allergies ObGyn Hx OB History Para Term AB Living 1 SAB IAB Ectopic Multiple Live Births # Outcome Date GA Lbr Efrain/2nd Weight Sex Type Anes PTL Lv 1 Current Medical Hx Past Medical History: Diagnosis Date Depression Migraines Trigeminal neuralgia Surgical Hx Past Surgical History: Procedure Laterality Date APPENDECTOMY WISDOM TOOTH EXTRACTION Family Hx Family History Problem Relation Age of Onset Hypertension Mother Hypertension Father Stroke Father Heart disease Father Cancer Maternal Aunt Lung cancer Maternal Grandmother Brain cancer Maternal Grandmother Diabetes Maternal Grandfather Heart disease Maternal Grandfather Lung cancer Paternal Grandmother Heart disease Paternal Grandfather Psychosocial Social History Socioeconomic History Marital status: Tobacco Use Smoking status: Never Smokeless tobacco: Never Vaping Use Vaping status: Never Used Substance and Sexual Activity Alcohol use: Not Currently Comment: RARE Drug use: No Sexual activity: Yes Social Drivers of Health Food Insecurity: No Food Insecurity (10/26/2024) Hunger Screening Food Insecurity - Worry: Never True Food Insecurity - Inability: Never True OBJECTIVE Vitals Vitals: 11/07/24 0634 11/07/24 0648 BP: 111/72 Pulse: 83 Resp: 20 Temp: 37 C (98.6 F) TempSrc: Oral Weight: 65.3 kg (144 lb) Height: 157.5 cm (5' 2 ) Physical Exam: Gen: NAD Abd: gravid, nontender Ext: no edema or redness in bilateral LE Neuro: AAOx3 SVE: closed FHT: Baby A 150bpm, Baby B 153bpm [place]: q2mins Labs Recent Results (from the past 36 hours) Urinalysis Collection Time: 11/07/24 7:39 AM Specimen: Urine Result Value Ref Range COLOR Colorless Yellow, Colorless TURBIDITY Hazy (A) Clear SPECIFIC GRAVITY 1.003 1.003 - 1.035 NITRITE Negative Negative PH,URINE 6.5 5.0 - 8.5 LEUKOCYTE ESTERASE Small (A) Negative PROTEIN Negative Negative KETONES (URINE) Negative Negative UROBILINOGEN <1.1 eu/dL <1.1 eu/dL BILIRUBIN (URINE) Negative Negative BLOOD/HGB Negative Negative MUCOUS Present (A) None R.B.CELLS 3 0 - 5 SQUAMOUS EPITHELIUM 9 (H) 0 - 5 W.B.CELLS 9 (H) 0 - 5 GLUCOSE (URINE) Negative Negative Er Extra Urine Collection Time: 11/07/24 7:39 AM Specimen: Urine, Clean Catch Midstream Result Value Ref Range Extra Tube Auto Resulted ABO/Rh: No results found for: ABOINTEP , RHINTEP Group B Strep: No results found for: EXTGBS Rubella: No results found for: RUBELLAIMMU Hepatitis B Surface Antigen: Lab Results Component Value Date HEPBSAG NEGATIVE 08/13/2024 HIV: Lab Results Component Value Date HIV4 NON REACTIVE 08/13/2024 RPR (VDRL): No results found for: SYPHILISTOT ASSESSMENT & PLAN Minnie Bunch is a 29 y.o. @ 21w5d who presents to triage with contractions in setting of mono/di twins 1. contractions - MFM US ordered - MFM consulted, appreciate recommendations - GCCT, Vaginitis, GBS collected - UA ordered with Ucx - Admit to special care due to preter contractions in setting of vasa previa, mono di twins with FGR - continuous toco - s/p fluid bolus, continue IVF 2. Routine antepartum care - CLD - MFM US 11/01: Baby A DVP 4.1cm cephalic nl dopplers, Baby B 4.2cm breech, nl dopplers - MFM US 10/27: Baby A EFW 262g (7%), AC 13cm (14%), DVP 3.4cm, post pl, ceph. Vasa previa. Baby B: EFW 286g (15%), AC 14cm (36%), DVP 3.4cm, post pl. CL 3.57cm, discordance 8.5% Pt discussed with Dr. Julio Estes MD Dietary Aide Resident, PGY-3 Cosigned by Lynne Kim MD at 11/07/2024 10:55 AM EDT Associated attestation - Lynne Kim MD - 11/07/2024 10:55 AM EDT Attending Attestation: I saw the patient. I performed the critical/luis portions of the service. I was directly involved in the management and treatment plan of the patient. I reviewed the resident's note. Additional Notes/Findings: Will observe d/t vasa previa, twins, contractions. MFM consulted, recs appreciated. Lynne Kim MD documented in this encounter [facility] 11-04-2024 Miscellaneous Notes Notified patient of no result CFDNA. Oracle Database Analyst let patient know that Ronald should be reaching out to set up a re-draw. Gave patient policy writer sales's direct phone number and told patient to call policy writer sales if patient does not hear from Ronald in the next day or so. documented in this encounter [facility] 11-04-2024 Telephone encounter Note Notified patient of no result CFDNA. Oracle Database Analyst let patient know that Ronald should be reaching out to set up a re-draw. Gave patient policy writer sales's direct phone number and told patient to call policy writer sales if patient does not hear from Ronald in the next day or so. [facility] 10-26-2024 History of Presen t illness Narrative Headache/epigastric pain/blurry vision/swelling? NO Cramping/contractions? NO Abnormal vaginal discharge? NO Spotting or vaginal bleeding? NO Loss or gush of fluid like your water may have broken? NO Recent ER visits or hospitalizations? NO Any concerns that you would like me to mention to the provider today? NO REASON FOR OFFICE VISIT: Monochorionic diamniotic twin HISTORY OF PRESENT ILLNESS: Minnie Bunch is a pleasant 29 y.o. at 20w0d due on Estimated Date of Delivery: 03/15/25 . has been complicated by: Monochorionic diamniotic twin FGR of twin A with growth discrepancy of 8%. Velamentous cord insertion of twin A with vasa previa, measuring 1.6cm from internal os when measured with a relaxed lower uterine segment. Currently the patient has no complaints. The patient denies headaches, vision changes, nausea, vomiting, right upper quadrant/epigastric pain, SOB or chest pain. She denies contractions, vaginal bleeding, leaking of fluid. She reports good movement. Aneuploidy screening: none Carrier screening: Baby Girls x2 I have reviewed the pertinent available patient records including but not limited to notes, labs and images. OB History Para Term AB Living 1 SAB IAB Ectopic Multiple Live Births # Outcome Date GA Lbr Efrain/2nd Weight Sex Type Anes PTL Lv 1 Current ALLERGIES: No Known Allergies CURRENT MEDICATIONS: Current [...] mg-mcg per tablet, , Disp: , Rfl: REVIEW OF SYSTEMS: Head and Neck: Negative for any dizziness and headaches. Cardiovascular and Respiratory System: Denies any chest pain, shortness of breath, and coughing. Abdominal and System: Denies any abdominal pain, nausea, vomiting, vaginal bleeding, and vaginal discharge REVIEW OF ULTRASOUND. Pertinent Ultrasound findings are see report. PHYSICAL EXAMINATION: BP 109/67 (BP Site: Left Arm, BP Postition: Lying, BP CUFF SIZE: S (7-9 inches)) Pulse 67 Ht 157.5 cm (5' 2 ) Wt 66.4 kg (146 lb 6.4 oz) LMP 06/08/2024 BMI 26.78 kg/m . Well-appearing, no acute distress Normal gait well oriented in time place and person. Respirations not labored, speaking comfortably in complete sentences Gravid abdomen Abstract on 08/19/2024 Component Date Value Ref Range Status Abo/Rh(D) 08/13/2024 A Positive Final Antibody Screen 08/13/2024 NEGATIVE Final Methadone 08/13/2024 NEGATIVE Final Opiates 08/13/2024 NEGATIVE Final Amphetamine/Methamphetamine 08/13/2024 NEGATIVE Final Cocaine Metabolite 08/13/2024 NEGATIVE Final Phencyclidine 08/13/2024 NEGATIVE Final Thc Marijuana, Urine 08/13/2024 NEGATIVE Final Oxycodone 08/13/2024 NEGATIVE Final Barbiturates 08/13/2024 NEGATIVE Final Benzodiazepines 08/13/2024 NEGATIVE Final Syphilis 08/13/2024 NON REACTIVE Final HIV 1&2 AB/AG 08/13/2024 NON REACTIVE Final Hepatitis C Antibody 08/13/2024 NON REACTIVE Final Hepatitis B Surface Antigen 08/13/2024 NEGATIVE Final OVERALL ASSESMENT -Minnie Jordyn Bunch is a pleasant 29 y.o. at 20w0d - monochorionic diamniotic twin , spontaneous - growth restriction of twin A -Velamentous cord insertion of twin A with vasa previa Counseling growth restriction Monochorionic diamniotic twin We reviewed that twin pregnancies are more likely to be complicated by growth restriction, either isolated growth restriction or growth restriction of both twins. Today, isolated growth restriction of twin A is identified with EFW at 6%. EFW of twin B is at 15th percentile, with a discrepancy of 8%. We reviewed that monochorionic diamniotic twin pregnancies are monozygous, thus the genetic growth potential of the twins should Be similar. We reviewed the limitations of ultrasound an estimated weight. Today I discussed the possible etiologies of FGR including aneuploidy, infectious, uteroplacental insufficiency, constitutional small fetus, and early development of twin-twin transfusion syndrome. At this time, the umbilical artery Doppler, ductus venosus Doppler and MCA Doppler are normal for both twins. There was no evidence of twin-twin transfusion syndrome or twin anemia polycythemia sequence. diagnostic testing is recommended when unexplained isolated FGR is diagnosed at <32 weeks of gestation. If diagnotic testing is performed than CMV testing should also be performed. If diagnostic testing is not desired, serologic testing for CMV in the third trimester is not warranted in the absence of risk factors or ultrasound markers of infection. Limitations of serologies were reviewed. Options for further testing were discussed in detail during today's visit. The patient was offered cell free DNA screening. Although cell-free DNA is not a diagnostic test , it has high sensitivity and specificity for the most common aneuploidies. A negative cell free DNA does not ensure an unaffected . A patient with a positive screen should be referred for genetic counseling and offered invasive diagnosis for confirmation of screen results. Limitations of cell free DNA screening were reviewed with the patient. Cell free DNA does not replace the accuracy and diagnostic precision of amniocentesis which remains an option for all women. Patient desired to proceed with cell free DNA. We discussed the option of amniocentesis for definitive genetic testing. Amniocentesis allows for testing of chromosomal microarray, which can identify clinically significant microdeletions and microduplications in 6 percent of euploid fetuses with ultrasound abnormalities and 1.7 percent of euploid fetuses without ultrasound abnormalities in whom a karyotype was performed on a chorionic villus sample, amniocytes, or a percutaneous umbilical blood sample. I discussed complications of invasive testing, including a 1 in 900 risk for labor, rupture of membranes, infection or bleeding that may lead to pre-viable or delivery. The patient declined amniocentesis. In twin pregnancies, risk is dependent on chorionicity, gestational age at procedure and numbers of needle insertions. Two separate meta-analyses identified loss rates of 3.07% and 3.5% . A recent meta-analysis reported procedure related complication rate of 2% in dichorionic twins vs 8.7% in monochorionic twins; 2.8% if gestational age <24 vs 7.7% if gestational age >24. Patient declined amniocentesis at this time. Velamentous insertion of umbilical cord in second trimester Vasa previa We reviewed the sonographic assessment from today's images showing that the umbilical cord insertion of twin A appears velamentous inserting on the lower uterine aspect, inferior to the posterior placenta with bridging vessels traveling to the posterior placenta. The velamentous cord insertion is within 2 cm of the internal os, consistent with a diagnosis of vasa previa. In a velamentous cord insertion, the cord inserts into the chorion and the umbilical vessels then diverge as the vessels insert into the placenta. As the vessels diverge, there is no Wang's jelly present and the vessels are surrounded by membranes only. This can lead to potential complications including IUGR, PTD, distress, low scores, , and retained placenta. Vasa previa is a rare but potentially catastrophic complication in which vessels run through the membranes and are at risk of rupture with consequent exsanguination. If the condition goes unrecognized, it is associated with a mortality rate of almost 60%. It has been suggested that patients be hospitalized at 28 to 32 weeks and delivered at 34 to 36 weeks' gestation without confirmation of lung maturity by amniocentesis. This approach is based on the 10% risk of membrane rupture before labor and the high associated mortality rate. However, this risk does not take into account the risk of labor and deliveries with multi gestation. Cervical length today was reassuring at 3.5 cm. We discussed that as long as she maintains a stable cervical length, no vaginal bleeding, and is otherwise is without symptoms of labor or other co-morbid conditions continued outpatient management is possible at this time. [facility] Guideline Recommendations for Delivery Timing ( committee opinion #831) Multifetal gestation - uncomplicated Monochorionic diamniotic twins 34 0/7 - 37 6/7 Multi gestation complicated Monochorionic diamniotic twins with isolated growth restriction 32 0/7-34 6/7 Summary of Recommendations: Aneuploidy screening Ordered, declined amniocentesis CMV serologies ordered, though limitations reviewed with the patient. Recommend weekly umbilical artery Doppler, MCA Doppler and ductus venosus in the setting of isolated growth restriction and monochorionic diamniotic twin , through [facility] Recommend repeat growth ultrasound in 3 weeks with a attempted completion of level 2 anatomy ultrasound / echocardiogram, through [facility] Repeat transvaginal ultrasound evaluation of velamentous cord insertion in 3 weeks. At time of [facility] physician evaluation, lower uterine segment contraction was noted. Anticipate admission at 28 weeks gestation with delivery at 32-34 week GA given isolated growth restriction in mo-di twin and the vasa previa Delivery via section Recommend ANCS if delivery before 34 weeks. Recommend magnesium for neuroprotection/prematurity if delivery before 32 weeks DISPOSITION: At this point the patient is in complete care of her transportation logistics internship. Patient does have ultrasound and office visit scheduled with us. Thank you for allowing me to participate in the care of Minnie Bunch. If there any questions please do not hesitate to contact us. Total time spent was 80 minutes: Preparing to see the patient (e.g., review of tests) Obtaining and/or reviewing separately obtained history Performing a medically appropriate examination and/or evaluation Counseling and educating the patient/family/caregiver Ordering medications, tests, or procedures Referring and communicating with other health day care center director (not separately reported) Documenting clinical information in the electronic or other health record Blaise Woodall MD Maternal- Medicine [place] [id number] [facility] [address] [place] [id number] [facility], the CDC, and other organizations representing maternal and public health professionals recommend that , , and lactating people and those considering receive the COVID-19 vaccination. Vaccination is the best method to reduce maternal and complications of SARS-CoV-2 infection. This document was created with [employer] technology. Though I make every effort to review the dictation as it is transcribed, on occasion the spoken word can be misinterpreted by the technology leading to inappropriate words, phrases, or sentences. This note is addressed to the requesting provider as a consultation for clinical guidance. Specific medical abbreviations are occasionally used and those are generally approved by the English?Board of?Obstetrics and?Gynecology?as well as?Amor herman abbreviations. The above plan of care was based solely on the diagnoses for which a consultation was requested. ?More frequent testing may be indicated based on her other medical/obstetrical conditions. The management of other or medical conditions is beyond the scope of requested consultation and will continue to be followed by the primary transportation logistics internship or primary care provider. Note to patient: The 21st Century Cures Act makes medical notes like these available to patients in the interest of transparency. However, be advised this is a medical document. It is intended as peer to peer communication. It is written in medical language and may contain abbreviations or verbiage that are unfamiliar. It may appear blunt or direct. Medical documents are intended to carry relevant information, facts as evident, and the clinical opinion of the practitioner. documented in this encounter [facility] 10-20-2024 History of Presen t illness Narrative Reason for Appointment: Patient ID: Minnie Bunch is a 29 y.o. female who presents for Routine Visit Patient presents today for Return OB appointment. MEDICATIONS Current Outpatient Medications Medication Instructions docusate sodium (COLACE) 100 mg, 2 times daily magnesium oxide (MAG-OX) 400 mg, [...] Migraine Migraine Paresthesia of hand Trigeminal neuralgia (CMS/HCC) Well woman exam HISTORY PAST MEDICAL HISTORY SOCIAL HISTORY Past Medical History: Diagnosis Date Abnormal uterine bleeding BMI 26.0-26.9,adult Breast lump Herpangina Ingrown hair Migraine Migraine stomach migraine Paresthesia of hand Trigeminal neuralgia (CMS/HCC) Well woman exam Social History Tobacco Use [...] APPENDECTOMY 07/2018 Dr. Bess WISDOM TOOTH EXTRACTION [place] teeth REVIEW OF SYSTEMS Review of Systems: [...] nursing note reviewed. Exam conducted with a paper twister tender present. Vitals: Estimated body mass index is 26.85 kg/m as calculated from the following: Height as of 02/10/23: 5' 2 . Weight as of this encounter: 146 lb 12.8 oz. BP: 110/70 Patient's last menstrual period was 06/08/2024. ASSESSMENT & PLAN ICD-10-CM 1. 19 weeks gestation of Z3A.19 POCT urinalysis dipstick manually resulted 2. Second trimester Z34.92 POCT urinalysis dipstick manually resulted Patient presents today for a routine obstetrics appointment. Patient is currently 19w1d with a Estimated Date of Delivery: 03/15/25. Pt sees [facility] Friday, for anatomy scan. Pt doing well. Pt having racing heart beat, denies chest pain and shortness of breath. Documented by Anali Li LPN on behalf of: Saul Eugene DO documented in this encounter [facility] 10-01-2024 Miscellaneous Notes Oracle Database Analyst spoke with Dr Woodall who states the patient should have the EKG completed. Oracle Database Analyst called and notified patient who verbalized understanding. The number for scheduling EKG was given to the patient. documented in this encounter [facility] 10-01-2024 Telephone encounter Note [employer] Database Analyst spoke with Dr Woodall who states the patient should have the EKG completed. Oracle Database Analyst called and notified patient who verbalized understanding. The number for scheduling EKG was given to the patient. 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 Patient states she is seeing her primary OB next week, is it okay to wait for EKG or get it done? Will confer with Dr Woodall as Dr Walton is [place] and call patient back. 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 Patient states she is seeing her primary OB next week, is it okay to wait for EKG or get it done? Will confer with Dr Woodall as Dr Walton is [place] and call patient back. [facility] 09-27-2024 History of Presen t illness Narrative Headache/epigastric pain/blurry vision/swelling? Having difficulty with vision, but not blurry vision Cramping/contractions? No Abnormal vaginal discharge? No Spotting/vaginal bleeding? No Loss or gush of fluid like your water may have broken? No Do you have cats at home? No Do you change the litter box (reason: risk of toxoplasmosis)? N/A Genetic testing done this here or other office? No Have you been seen here at [facility] in a previous ? No Recent ER visits or hospitalizations? No Bring blood sugar log or meter with you today? (Please bring them with you for every visit at [facility]) No Flu vaccine (Mar-July)? No Any concerns that you would like me to mention to the provider today? She does know gender!! Heart palpitations with normal activity, when resting, when working, feels like a dropped beat. Hx palpitation pre-. Is getting plenty of water intake. Wants to make sure that is normal. REASON FOR CONSULTATION: Monochorionic diamniotic twin gestation. HISTORY OF PRESENT ILLNESS: Minnie Bunch is a pleasant 29 y.o. at 15w6d due on Estimated Date of Delivery: 03/15/25 . Currently the patient has no complaints. The patient denies nausea, vomiting, abdominal pain, vaginal bleeding, SOB or chest pain. PAST OBSTETRICAL HISTORY: OB History 1 Para Term AB Living SAB IAB Ectopic Multiple Live Births SURGICAL HISTORY: Past Surgical History: Procedure Laterality Date APPENDECTOMY WISDOM TOOTH EXTRACTION ALLERGIES: No Known Allergies CURRENT MEDICATIONS: Current Outpatient Medications: docusate sodium (COLACE) 100 mg capsule, Take 1 capsule (100 mg total) by mouth in the morning., Disp: , Rfl: magnesium oxide (MAG-OX) 400 mg tablet, , Disp: , Rfl: no115/iron/folic acid ( 19 [...] mouth in the morning., Disp: , Rfl: ondansetron (ZOFRAN) 4 mg tablet, Take 4 mg by mouth every 8 (eight) hours as needed for nausea or vomiting. (Patient not taking: Reported on 04/13/2024), Disp: , Rfl: PIRMELLA 1-35 mg-mcg per tablet, , Disp: , Rfl: REVIEW OF SYSTEMS: Head and Neck: Negative for any dizziness and headaches. Cardiovascular and Respiratory System: Denies any chest pain, shortness of breath, and coughing. Abdominal and System: Denies any abdominal pain, nausea, vomiting, vaginal bleeding, and vaginal discharge FAMILY/GENETIC HISTORY: No family history of VTE, cardiac defects and mental retardation . SOCIAL HISTORY:Patient denies tobacco use, alcohol use, or drug use. REVIEW OF TESTS AND ULTRASOUND REPORTS: see today's ultrasound report HABITS: Patient activity no restrictions, diet no restrictions PHYSICAL EXAMINATION: BP 122/76 (BP Site: Right Arm, BP Postition: Sitting) Pulse 90 Ht 157.5 cm (5' 2.01 ) Wt 64 kg (141 lb 3.2 oz) LMP 06/08/2024 BMI 25.82 kg/m . Gravid abdomen, Respirations not labored. DISCUSSION: Monochorionic diamniotic (BHARTI) twin gestation. We reviewed with the patient the different types of twinning and the high risk issues that are associated with monochorionic diamniotic twinning. I reviewed with the patient that monochorionic twins are fetuses that share 1 placenta but have 2 separate amniotic sacs. They are also known as identical twins and share genetic material. However, due to the sharing of the placenta there is significant potential for intrauterine growth restriction and this occurs in about 25% of multifetal gestations. I explained to the patient that monochorionic diamniotic twins, due to shared placenta, are at risk of having pathologic vascular connections which may place them at increased risk of sudden intrauterine . Xhfd-ri-wzhd transfusion syndrome due to an aberrant vascular communication between the fetuses with a common placenta occurs about 15% of monochorionic diamniotic twin gestations. Cslb-nm-shyn transfusion syndrome has a great risk for , especially for the donor twin and this can be in the range of 18% to 35%. If there is a demise the other twin has an over 80% chance of serious neurologic comorbidity and mortality related to the of the other twin. Often the case of intrauterine demise of 1 twin the surviving twin also dies. I also reviewed with her the risk of labor due to multiple gestation. We also discussed the risk of preeclampsia or gestational hypertension in multifetal . Preeclampsia or gestational hypertension may necessitate iatrogenic early delivery depending on the severity of these. We recommend early 24 hour urine protein collection and preeclampsia labs and repeating these at 28 weeks gestation to get a new baseline. Delivery timing We explained to the patient that the timing of delivery is contingent upon the status of the babies throughout the and we recommend planned delivery of apparently uncomplicated (for example normal growth and amniotic fluid volume) monochorionic diamniotic twins at 36 -37 weeksgestation. We did remind the patient that a monochorionic diamniotic twin gestation and planned delivery does not necessitate delivery. The mode of delivery will be contingent upon the clinical status of the , the positions, the weights and gestational age at the time of anticipated delivery. This discussion will be undertaken with her obstetric provider later in the . Palpitations- EKG was ordered. If she has persistent palpitations would consider Holter monitor and cardiology consultation SUMMARY/RECOMMENDATION: The following is a summary of our recommendations: 1. Aneuploidy screening- discussed the differences between screening and diagnostic testing and they are still undecided. 2. Baby ASA daily (BMI) 3. Anatomy scan MFM And echocardiogram 20-22 weeks 4. Ultrasound surveillance every 2 weeks for gpfl-gm-ymmk transfusion syndrome 5. GDM screening at 24-28 weeks 6. Initiate surveillance at 32 weeks or sooner if clinically indicated 7. Delivery timing: at 36-37 weeks if remains uncomplicated 8. Delivery method to be determined by the presentation fetus is as we get closer to delivery TIME OF CONSULTATION: We spent 45 minutes with the patient, >50% in discussion and counseling, coordination of care which was [id number]-[id number]-[id number]. documented in this encounter [facility] 09-23-2024 History of Presen t illness Narrative Reason for Appointment: Patient ID: Minnie Bunch is a 29 y.o. female who presents for Routine Visit Patient presents today for Return OB appointment. MEDICATIONS Current Outpatient Medications Medication Instructions magnesium oxide (MAG-OX) 400 mg, Daily Vit-Fe [...] Migraine Migraine Paresthesia of hand Trigeminal neuralgia (CMS/HCC) Well woman exam HISTORY PAST MEDICAL HISTORY SOCIAL HISTORY Past Medical History: Diagnosis Date Abnormal uterine bleeding BMI 26.0-26.9,adult Breast lump Herpangina Ingrown hair Migraine Migraine stomach migraine Paresthesia of hand Trigeminal neuralgia (CMS/HCC) Well woman exam Social History Tobacco Use [...] APPENDECTOMY 07/2018 Dr. Bess WISDOM TOOTH EXTRACTION [place] teeth REVIEW OF SYSTEMS Review of Systems: Review of Systems All other systems reviewed and are negative. OBJECTIVE Objective: Physical Exam Constitutional: Appearance: Normal appearance. She is well-developed. Genitourinary: Vulva normal. Breasts: Breasts are soft. Right: Normal. Left: Normal. Cardiovascular: Rate and Rhythm: Normal rate and [...] nursing note reviewed. Exam conducted with a paper twister tender present. Vitals: Estimated body mass index is 25.94 kg/m as calculated from the following: Height as of 02/10/23: 5' 2 . Weight as of this encounter: 141 lb 12.8 oz. BP: 100/60 Patient's last menstrual period was 06/08/2024. ASSESSMENT & PLAN ICD-10-CM 1. 15 weeks gestation of Z3A.15 POCT urinalysis dipstick manually resulted Alpha fetoprotein, maternal Alpha fetoprotein, maternal 2. Second trimester Z34.92 POCT urinalysis dipstick manually resulted Alpha fetoprotein, maternal Alpha fetoprotein, maternal 3. Well woman exam with routine gynecological exam Z01.419 Pap Smear 4. Exposure to STD Z20.2 CHLAMYDIA TRACHOMATIS (GENITO/STI) Neisseria gonorrhea DNA probe, direct 5. Vaginal discharge N89.8 SURESWAB(R) ADVANCED VAGINITIS PLUS, TMA 6. Monochorionic diamniotic twin gestation in second trimester O30.032 Return OB/Annual Exam: Patient presents today for an annual exam/routine obstetrics appointment. Patient is currently 15w2d with TWIN GESTATION. Patient is doing well and states she has no complaints. Pap/cultures was obtained without difficulty and patient was given [facility] order to have obtained. Discussed delivery concerns/questions. Patient sees [facility]FM next week and will have anatomy done through them. Orders Placed This Encounter Procedures CHLAMYDIA TRACHOMATIS (GENITO/STI) Neisseria gonorrhea DNA probe, direct Alpha fetoprotein, maternal POCT urinalysis dipstick manually resulted Follow Up: Patient is to return to our office in 4 weeks for routine OB appointment Documented by Oneyda Sood LPN on behalf of: Saul Eugene DO documented in this encounter [facility] 09-01-2024 History of Presen t illness Narrative Reason for Appointment: Patient ID: Minnie Bunch is a 29 y.o. female who presents for Routine Visit Patient presents today for Return OB appointment. MEDICATIONS Current Outpatient Medications Medication Instructions Vit-Fe Fumarate-FA ( Vitamins) 28-0.8 MG tablet 1 tablet, Oral, Daily ALLERGIES No Known Allergies PROBLEMS Active Ambulatory Problems Diagnosis Date Noted No Active Ambulatory Problems Resolved Ambulatory Problems Diagnosis Date Noted No Resolved Ambulatory Problems Past Medical History: Diagnosis Date Abnormal uterine bleeding BMI 26.0-26.9,adult Breast lump Herpangina Ingrown hair Migraine Migraine Paresthesia of hand Trigeminal neuralgia (CMS/HCC) Well woman exam HISTORY PAST MEDICAL HISTORY SOCIAL HISTORY Past Medical History: Diagnosis Date Abnormal uterine bleeding BMI 26.0-26.9,adult Breast lump Herpangina Ingrown hair Migraine Migraine stomach migraine Paresthesia of hand Trigeminal neuralgia (CMS/HCC) Well woman exam Social History Tobacco Use [...] APPENDECTOMY 07/2018 Dr. Bess WISDOM TOOTH EXTRACTION [place] teeth REVIEW OF SYSTEMS Review of Systems: [...] nursing note reviewed. Exam conducted with a paper twister tender present. Vitals: Estimated body mass index is 25.75 kg/m as calculated from the following: Height as of 02/10/23: 5' 2 . Weight as of this encounter: 140 lb 12.8 oz. BP: 110/70 Patient's last menstrual period was 06/08/2024. ASSESSMENT & PLAN ICD-10-CM 1. First trimester Z34.91 POCT urinalysis dipstick manually resulted 2. 12 weeks gestation of Z3A.12 POCT urinalysis dipstick manually resulted 3. Monochorionic diamniotic twin gestation in first trimester O30.031 New OB: Patient presents today for 1st time obstetrics appointment with provider. Patient is currently 12w1d . Patients history has been reviewed in great detail including any potential risks. Patient stated she currently has no complaints. Expectations throughout regarding labs, ultrasounds, and appointments have been discussed with the patient in detail. It was reiterated that the patient is to drink 6-8 glasses of water a day, eat 6 small meals a day, do not consume raw or undercooked meat, and [facility] away from [facility]. Patient has been consulted regarding any further do's and don'ts of . Patient voiced understanding and all questions and concerns were answered. Pt is twin gestation referred to [facility]. Pt to start baby aspirin at 14 weeks. Orders Placed This Encounter Procedures POCT urinalysis dipstick manually resulted Follow Up: Patient is to return in 4 weeks for routine OB appointment. Documented by Anali Li LPN on behalf of: Saul Eugene DO documented in this encounter [facility] 04-13-2024 History of Presen t illness Narrative Images from the original note were not included. Neurology 04/13/2024 History of Present Illness: Follow-up for trigeminal neuralgia. She was on low-dose Neurontin 100 mg daily and about this past January she stopped it. She has been pain-free. She has had some regular headaches and she states there are good days and bad days , but the terrible trigeminal pain has not returned. Her PCP has ordered an MRI of the brain. She and her new are going to try to have children. She asked my opinion about medication options. I have told her that any medicine she takes, her baby gets. I have suggested that she only use Tylenol if needed. She agrees. I have told her that I do not manage issues and complications, and if that turns out to be a problem she may need to go to an academic center. Past Medical History: Diagnosis Date Depression Family History Problem Relation Age of Onset Stroke Father Heart disease Father Cancer Maternal Aunt Cancer Maternal Grandmother No Known Allergies Current Outpatient Medications Medication Instructions busPIRone (BUSPAR) 5 mg, oral, 2 times daily cyproheptadine (PERIACTIN) 4 mg tablet No dose, route, or frequency recorded. doxepin (SINEQUAN) 10 mg, 2 times daily escitalopram (LEXAPRO) 20 mg, oral, Daily magnesium oxide (MAG-OX) 400 mg tablet No dose, route, or frequency recorded. ondansetron (ZOFRAN) 4 mg, Every 8 hours PRN PIRMELLA 1-35 mg-mcg per tablet No dose, route, or frequency recorded. Review of systems: Other than what is mentioned above, a review of systems is negative for HEENT, cardiovascular, pulmonary, gastrointestinal, urinary, musculoskeletal, skin, endocrine, and immunologic. Physical Examination: Vitals: 04/13/24 1349 BP: 108/73 BP Site: Left Wrist BP Postition: Sitting Pulse: 70 Weight: 64 kg (141 lb) Neurological Examination: Normal conjugate ocular movements. Equal pupils. Symmetric face. Intact speech. No dysarthria or aphasia. Fully oriented. Friendly and pleasant. Full symmetric motor movements arms/legs. Coordination appears intact. No observed tremor or other abnormal movements. No observed ataxia. Normal gait. Assessment/Plan: 1. Trigeminal neuralgia Please see HPI above. Follow Up: As needed. Parminder Ramsay MD documented in this encounter [facility] 02-23-2024 History of Presen t illness Narrative Reason for Appointment: Patient ID: Minnie Swift is a 28 y.o. female who presents for Gynecologic Exam Patient presents today for Annual Exam. MEDICATIONS Current Outpatient Medications Medication Instructions Butalbital-Acetaminophen 50-325 MG tablet 1 tablet as needed Orally Prn bijpuzjkjo-koayxldmttwbl-pwtlam ne-codeine (Fioricet W/Codeine) 66-628-31-30 MG capsule 1 capsule, Oral, Every 4 hours PRN cyproheptadine (Periactin) 4 MG tablet 1 tablet, Oral, Daily doxepin (SINEquan) 10 MG capsule TAKE 1 TO 2 CAPSULES BY MOUTH EVERY 6 HOURS ALLERGIES No Known Allergies PROBLEMS Active Ambulatory Problems Diagnosis Date Noted No Active Ambulatory Problems Resolved Ambulatory Problems Diagnosis Date Noted No Resolved Ambulatory Problems Past Medical History: Diagnosis Date Abnormal uterine bleeding BMI 26.0-26.9,adult Breast lump Herpangina Ingrown hair Migraine (CMS/HCC) Migraine (CMS/HCC) Paresthesia of hand Trigeminal neuralgia (CMS/HCC) Well woman exam HISTORY PAST MEDICAL HISTORY SOCIAL HISTORY Past Medical History: Diagnosis Date Abnormal uterine bleeding BMI 26.0-26.9,adult Breast lump Herpangina Ingrown hair Migraine (CMS/HCC) Migraine (CMS/HCC) stomach migraine Paresthesia of hand Trigeminal neuralgia (CMS/HCC) Well woman exam Social History Tobacco Use [...] APPENDECTOMY 07/2018 Dr. Bess WISDOM TOOTH EXTRACTION [place] teeth REVIEW OF SYSTEMS Review of Systems: Review of Systems All other systems reviewed and are negative. OBJECTIVE Objective: Physical Exam Constitutional: Appearance: Normal appearance. She is well-developed. Genitourinary: Vulva normal. Breasts: Breasts are soft. Right: Normal. Left: Normal. Cardiovascular: Rate and Rhythm: Normal rate and [...] nursing note reviewed. Exam conducted with a paper twister tender present. Vitals: Estimated body mass index is 26.34 kg/m as calculated from the following: Height as of 02/10/23: 5' 2 . Weight as of this encounter: 144 lb. BP: 110/62 Patient's last menstrual period was 02/17/2024 (exact date). ASSESSMENT & PLAN ICD-10-CM 1. Well woman exam with routine gynecological exam Z01.419 Pap Smear Annual Exam: Patient presents today for an annual exam. Patient states she is doing well and has no complaints. Pap was obtained without difficulty. Follow Up: Patient is to return in one year for annual unless needed otherwise. Documented by Oneyda Sood LPN on behalf of: Saul Eugene DO documented in this encounter [facility] Healthcare Evaluation note Diagnosis Well woman exam with routine gynecological exam Routine gynecological examination documented [facility] encounter [facility] Diagnosis Trigeminal neuralgia- Primary [facility] Diagnosis First trimester state, incidental 12 weeks gestation of Monochorionic diamniotic twin gestation in first trimester documented in this encounter [facility] HealthcareEvaluation note* Diagnosis 15 weeks gestation of Second trimester state, incidental Well woman exam with routine gynecological exam Routine gynecological examination Exposure to STD Vaginal discharge Leukorrhea, not specified as infective Monochorionic diamniotic twin gestation in second trimester documented [facility]* Diagnosis Palpitations- Primary [facility] Diagnosis Palpitations- Primary Monochorionic diamniotic twin gestation in second trimester [facility] Diagnosis Monochorionic diamniotic twin gestation in second trimester- Primary [facility] Diagnosis 19 weeks gestation of Second trimester state, incidental documented [facility]* Diagnosis Intrauterine growth restriction affecting antepartum care of mother in second trimester, fetus 1- Primary Velamentous insertion of umbilical cord in second trimester Monochorionic diamniotic twin gestation in second trimester Vasa previa, fetus 1 of multiple gestation Palpitations [facility]* Diagnosis Intrauterine growth restriction affecting antepartum care of mother in second trimester, fetus 1- Primary 20 weeks gestation of Velamentous insertion of umbilical cord in second trimester Monochorionic diamniotic twin gestation in second trimester Vasa previa, fetus 1 of multiple gestation [facility] Diagnosis uterine contractions- Primary [facility] Diagnosis Monochorionic diamniotic twin gestation in second trimester- Primary [facility] Diagnosis Monochorionic diamniotic twin gestation in second trimester- Primary Intrauterine growth restriction affecting antepartum care of mother in second trimester, fetus 1 Velamentous insertion of umbilical cord in second trimester Vasa previa, fetus 1 of multiple gestation Palpitations [facility] Diagnosis Second trimester (HHS-HCC) state, incidental 23 weeks gestation of (HHS-HCC) Diabetes mellitus screening Screening for diabetes mellitus Monochorionic diamniotic twin gestation in second trimester (HHS-HCC) documented [facility]* Diagnosis Vasa previa, fetus 1 of multiple gestation- Primary Intrauterine growth restriction affecting antepartum care of mother in second trimester, fetus 1 Monochorionic diamniotic twin gestation in second trimester [facility] Diagnosis Second trimester (HHS-HCC) state, incidental 25 weeks gestation of (HHS-HCC) Monochorionic diamniotic twin gestation in second trimester (HHS-HCC) documented [facility]* Diagnosis Intrauterine growth restriction affecting antepartum care of mother in second trimester, fetus 2 of multiple gestation- Primary Intrauterine growth restriction affecting antepartum care of mother in second trimester, fetus 1 of multiple gestation 25 weeks gestation of Velamentous insertion of umbilical cord in second trimester Monochorionic diamniotic twin gestation in second trimester [facility] Diagnosis Intrauterine growth restriction affecting antepartum care of mother in second trimester, fetus 1 of multiple gestation- Primary Intrauterine growth restriction affecting antepartum care of mother in second trimester, fetus 2 of multiple gestation Monochorionic diamniotic twin gestation in second trimester documented [facility] filedocumented in this encounter [facility] on filedocumented in this encounter [facility] filedocumented in this [facility] on filedocumented in this encounter [facility] on filedocumented in this encounter [facility] on filedocumented in this encounter [facility] on filedocumented in this encounter [facility] on filedocumented in this encounter [facility] on filedocumented in this encounter [facility]ructions[facility] on filedocumented in this encounter [facility] System[facility] for referral (narrative)* Misc (Routine) - Pending Review Specialty Diagnoses / Procedures Referred By Burt sellers Referred To Contact Procedures Discharge Follow-Up García Valera MD [address] [address] Phone: tel: fax: Referral ID Status Reason Start Date Expiration Date V isits Requested Visits Authorized [id number] Pending Review 11/08/2024 11/08/2025 1 1 [facility] Summary Purpose Family History No Family History Records FoundNo Family History Records FoundNo Family History Records FoundNo Family History Records FoundNo Family History Records FoundNo Family History Records FoundNo Family History Records FoundNo Family History Records FoundNo Family History Records FoundNo Family History Records Found Advance Directives No Advanced Directives Records Found Date Activated Date Inactivated Comments 11/07/2024 9:33 AM 11/08/2024 4:22 PM Date Activated Date Inactivated Comments 11/07/2024 9:33 AM 11/08/2024 4:22 PM Additional Source Comments INFORMATION SOURCE (unrecogn ized section and content) DATE CREATED AUTHOR 11/25/2017 [facility] DATE CREATED AUTHOR AUTHOR'S ORGANIZ ATION 12/02/2017 [facility] DATE CREATED AUTHOR AUTHOR'S ORGANIZ ATION 02/16/2018 [facility] DATE CREATED AUTHOR AUTHOR'S ORGANIZ ATION 02/01/2022 [facility] DATE CREATED AUTHOR AUTHOR'S ORGANIZ ATION 06/19/2022 [facility] dical Specialist DATE CREATED AUTHOR AUTHOR'S ORGANIZ ATION 09/09/2022 [facility] [place] [facility] DATE CREATED AUTHOR AUTHOR'S ORGANIZ ATION 04/16/2024 [facility] DATE CREATED AUTHOR AUTHOR'S ORGANIZ ATION 10/05/2024 [facility] DATE CREATED AUTHOR AUTHOR'S ORGANIZ ATION 12/16/2024 [facility] dical Specialists EPIC DATE CREATED AUTHOR AUTHOR'S ORGANIZ ATION 12/21/2024 [facility] Care Teams (unrecognized sec tion and content) Teacher Tutor Relationship Specialty Start Date End Date Sabrina Ramirez MD [address] [phone] PCP - General Family Medicine 08/29/23 Teacher Tutor Relationship Specialty Start Date End Date Sabrina Ramirez MD [address] [phone] PCP - General Family Medicine 08/29/23 Teacher Tutor Relationship Specialty Start Date End Date Sabrina Ramirez MD [address] [phone] PCP - General Family Medicine 08/29/23 Teacher Tutor Relationship Specialty Start Date End Date Belén Rooney MD [address] [place] [phone] PCP - General Family Medicine 09/29/18 Teacher Tutor Relationship Specialty Start Date End Date Belén Rooney MD [address] [place] [phone] PCP - General Family Medicine 09/29/18 Teacher Tutor Relationship Specialty Start Date End Date Sabrina Ramirez MD [address] [place] [address] PCP - General Family Medicine 08/29/23 Saul Eugene DO [facility] [address] [facility] [place] [address] Referring Physician Obstetrics and Gynecology 08/16/24 Teacher Tutor Relationship Specialty Start Date End Date Sabrina Ramirez MD [facility] [place] [address] PCP - General Family Medicine 08/29/23 Saul Eugene DO [facility] [address] [place] [address] Referring Physician Obstetrics and Gynecology 08/16/24 Teacher Tutor Relationship Specialty Start Date End Date Sabrina Ramirez MD [facility] [place] [address] PCP - General Family Medicine 08/29/23 Saul Eguene DO [facility] [address] [facility] [place] [address] Referring Physician Obstetrics and Gynecology 08/16/24 Teacher Tutor Relationship Specialty Start Date End Date Sabrina Ramirez MD [address] [place] [address] PCP - General Family Medicine 08/29/23 Saul Eugene DO [facility] [place] [address] Referring Physician Obstetrics and Gynecology 08/16/24 Teacher Tutor Relationship Specialty Start Date End Date Sabrina Ramirez MD [address] [place] [facility] [address] PCP - General Family Medicine 08/29/23 Saul Eugene DO [address] [place] [address] [facility] [place] [address] Referring Physician Obstetrics and Gynecology 08/16/24 Teacher Tutor Relationship Specialty Start Date End Date Belén Rooney MD [address] [place] [address] PCP - General Family Medicine 09/29/18 Teacher Tutor Relationship Specialty Start Date End Date Belén Rooney MD [address] [place] [address] PCP - General Family Medicine 09/29/18 Teacher Tutor Relationship Specialty Start Date End Date Belén Rooney MD [address] [place] [address] PCP - General Family Medicine 09/29/18 Teacher Tutor Relationship Specialty Start Date End Date Sabrina Ramirez MD [address] [place] [address] PCP - General Family Medicine 08/29/23 Saul Eugene DO [address] [place], [place] [address], [place] [address] Referring Physician Obstetrics and Gynecology 08/16/24 Teacher Tutor Relationship Specialty Start Date End Date Sabrina Ramirez MD [address] [place] [address] PCP - General Family Medicine 08/29/23 Saul Eugene DO [address] [place] [address] [place] [address] Referring Physician Obstetrics and Gynecology 08/16/24 Teacher Tutor Relationship Specialty Start Date End Date Belén Rooney MD [address] [phone] (Work) PCP - General Family Medicine 09/29/18 Teacher Tutor Relationship Specialty Start Date End Date Belén Rooney MD [address] [address] PCP - General Family Medicine 09/29/18 Teacher Tutor Relationship Specialty Start Date End Date Belén Rooney MD [address] [phone] (Work) PCP - General Family Medicine 09/29/18 Teacher Tutor Relationship Specialty Start Date End Date Belén Rooney MD [address] [address] PCP - General Family Medicine 09/29/18 Teacher Tutor Relationship Specialty Start Date End Date Belén Rooney MD [address] [address] PCP - General Family Medicine 09/29/18 Teacher Tutor Relationship Specialty Start Date End Date Belén Rooney MD [address] [address] PCP - General Family Medicine 09/29/18 Teacher Tutor Relationship Specialty Start Date End Date Sabrina Ramirez MD [address] [place] [address] PCP - General Family Medicine 08/29/23 Saul Eugene DO [facility] [address] [place] [address] Referring Physician Obstetrics and Gynecology 08/16/24 Teacher Tutor Relationship Specialty Start Date End Date Belén Rooney MD [address] [place] [phone] PCP - General Family Medicine 09/29/18 Teacher Tutor Relationship Specialty Start Date End Date Sabrina Ramirez MD [address] [place] [address] PCP - General Family Medicine 08/29/23 Saul Eugene DO [facility] [address] [phone] Referring Physician Obstetrics and Gynecology 08/16/24 Teacher Tutor Relationship Specialty Start Date End Date Sabrina Ramirez MD [address] [place] [address] PCP - General Family Medicine 08/29/23 Saul Eugene DO [facility] [address] [facility] [place] [address] Referring Physician Obstetrics and Gynecology 08/16/24 Teacher Tutor Relationship Specialty Start Date End Date Sabrina Ramirez MD [address] [place] [address] PCP - General Family Medicine 08/29/23 Saul Eugene DO [facility] [place] [address] Referring Physician Obstetrics and Gynecology 08/16/24 Teacher Tutor Relationship Specialty Start Date End Date Belén Rooney MD [address] [phone] PCP - General Family Medicine 09/29/18 Teacher Tutor Relationship Specialty Start Date End Date Sabrina Ramirez MD [address] [place] [address] PCP - General Family Medicine 08/29/23 Saul Eugene DO [address] [facility] [place] [address] Referring Physician Obstetrics and Gynecology 08/16/24 Teacher Tutor Relationship Specialty Start Date End Date Belén Rooney MD [address] [phone] PCP - General Family Medicine 09/29/18 Teacher Tutor Relationship Specialty Start Date End Date Belén Rooney MD [address] [phone] PCP - General Family Medicine 09/29/18 Reason for Visit (unrecogniz ed section and content) Reason Comments Gynecologic Exam Reason Comments Trigeminal Neuralgia 1 year follow up, S he states that she is doing good and stopped the Gabapentin the end of Jan and is doing great. She does state she has been getting some recurrent headaches since then also. She does have a order to get a MRI brain from her PCP which is not scheduled yet. Reason Comments Routine Visit Reason Comments [place] Reason Comments [place] Palpitations Reason Comments Contractions On and off throughou t the night, worse since 0500 Specialty Diagnoses / Procedures Referred By Contac t Referred To Contact Diagnoses uterine contractions Parminder Negro MD [address], [address] [address] Phone: tel: fax: Referral ID Status Reason Start Date Expiration Date Visits Re quested Visits Authorized [id number] 1 1 Reason Comments Monochorionic Diamniotic Twin Growth Restriction Twin A Vasa Previa Reason Comments Add On FGR Twins Twin B Elevated Dopplers Scheduled Active and Recently Administ ered Medications (unrecognized section and content) Medication Order 11/06/2024 11/07/2024 11/08/2024 busPIRone (BUSPAR) tablet 5 mg 5 mg, oral, Daily, First dose on 11/07/24 at 1100, Look-alike/sound-alike medication - verify indication for use. Avoid grapefruit juice. 1100 (Not Given - Provider: Nely Breaux RN - Reason: Patient/family refused) 0900 (Not Given - Provider: Jennifer Chin RN - Reason: Patient/family refused) escitalopram (LEXAPRO) tablet 20 mg 20 mg, oral, Daily, First dose on 11/07/24 at 1100, Look-alike/sound-alike medication - verify indication for use. 1100 (Not Given - Provider: Nely Breaux RN - Reason: Patient/family refused) 0900 (Not Given - Provider: Jennifer Chin RN - Reason: Patient/family refused) lactated ringers bolus (COMPLETED) 1,000 mL, intravenous, at 984 mL/hr, Administer over 61 Minutes, Once, On 11/07/24 at 0715, For 1 dose 0736 (New Bag - Provider: Nely Breaux RN)0837 (Stop Bag - Provider: Nely Breaux RN) PNV,calcium 78-obik-hjepj acid ( PLUS) 27 mg iron- 1 mg tablet 1 tablet 1 tablet, oral, Daily, First dose on 11/07/24 at 0945, L&D Pre-Delivery 0945 (Hold - Provider: Nely Breaux RN - Reason: Other - Comment: pt does not want her medication right now) 0900 (Not Given - Provider: Jennifer Chin RN - Reason: Patient/family refused) sodium chloride 0.9 % flush 3 mL 3 mL, intravenous, Every 12 hours, First dose on 11/07/24 at 2245 2245 (Given - Provider: Park Paul RN) 0900 (Due - Provider: Britney Cervantes [facility]) Continuous Medication Order 11/06/2024 11/07/2024 11/08/2024 lactated ringers infusion (CANCELED) 125 mL/hr, intravenous, Continuous, Starting on 11/07/24 at 0945, For 1 day, L&D Pre-Delivery 1020 (New Bag - Provider: Violette Breaux RN)1654 (New Bag - Provider: Julia Limon RN)2233 (Stop Bag - Provider: Park Paul RN - Comment: [Order ends at this time. Document the following action when infusion is complete: Stop Bag]) PRN Medication Order 11/06/2024 11/07/2024 11/08/2024 acetaminophen (TYLENOL EXTRA STRENGTH) tablet 1,000 mg 1,000 mg, oral, As needed, moderate pain - pain scale 4-6, Starting on 11/07/24 at 1047 calcium carbonate (TUMS) 200 mg elemental (500 mg) chewable tablet 200 mg 200 mg, oral, Every 8 hours PRN, indigestion, heartburn, GI Distress, Starting on 11/07/24 at 0932, L&D Pre-Delivery, Ordered as elemental calcium. 200 mg elemental calcium = 500 mg calcium carbonate lactated ringers infusion 250 mL/hr, intravenous, Continuous PRN, to improve utero-placental perfusion and/or relieve cord compression, Starting on 11/07/24 at 0932, For 1 day, L&D Pre-Delivery sodium chloride 0.9 % infusion 20 mL/hr, intravenous, Continuous PRN, per policy for blood product transfusion, Starting on 11/07/24 at 0933, For 24 hours, Initiate prior to blood product transfusion. Continue before and after each blood product transfusion. Discontinue upon completion of blood product transfusion(s). FOR RECORDS PERTAINING TO PATIENTS WHO ARE [...] BE BASED ON THE PRIMARY CLINICAL RECORDS. [facility] [employer] [facility]. provides no warranty or guarantee of the accuracy or completeness of information in this document.
--- NOTE | 2024-12-24 10:56 | US_ITS ---
[address] [address] Patient Name: MINNIE BUNCH MRN: [id number] date: 1995 Sex: F Assigned Patient Location: [facility] Current Patient Location: Accession/Order Number: [id number] Exam Date: 12/24/2024 14:00 Report Date: 12/24/2024 14:02 At the request of: LIZABETH BOOKER MD Procedure: US OB BPP w non-stress Biophysical profile. Reason for exam: Twin COMPARISON: 12/21/2024 TECHNIQUE: The hard hat diver reports a fetus A BPP of 8 out of 8. MVP is 8.4 cm. heart rate 163 bpm. The hard hat diver reports fetus B BPP of 8 out of 8. MVP is 5.4 cm. heart rate 147 bpm. US/US OB BPP w non-stress IMPRESSION: BPP 8out of 8 for Fetus A. BPP 8 out of 8 for fetus B. Impression dictated by: Barrington Spears Jr., D.O. 12/24/2024 2:02 PM Dictation Location: [place] [address] Electronically authenticated by: [id number] Date: 12/24/2024 14:02
== END 2024-12-24 11:30 | disposition home or self-care (01) ==
LOC: FBCO 10:00 → FBC 10:07
PROVIDERS: PCP Family Medicine; Visit Provider Obstetrics & Gynecology
DX: O30.039 Twin pregnancy, monochorionic/diamniotic, unspecified trimester (principal)
CPT/HCPCS: 59025; 76818

== ENCOUNTER 2024-12-28 13:54 | Outpatient (OUT) | payer OTHER, SELFPAY ==
--- OUTSIDE RECORDS SUMMARY | 2023-12-18 13:03 | XMS_ITS ---
Author Organization The [facility] in [place] Address [address] [place] [address] Care Team Providers Care Avionics Systems Integration Specialist Name Role Phone Harsh Laguna Primary Care Provider REASON FOR VISIT Massage rx- Medications Medication SIG (Take, Route, Fr equency, Duration) Notes Start Date End Date Status Cyproheptadine HCl 4 MG Take 1 tablet by mouth once daily for 90 days Active Encounters Encounter Location Date Provider Diagnosis [facility] [address] [place] [address] 12/18/2023 Harsh Laguna Headache, unspecifie d R51.9 [...] Alia TURCIOS ADOB: [birth year] (28 yo F)Acc No.[id number]:12/18/2023 Patient: Christopher GONZALEZAlia ANGELA :1995 A ge:28 Y S ex:Female Address:[facility] [place] [address] * Refills Refill Cyproheptadine HCl Tablet, 4 MG, 90 Tablet, Take 1 tablet by mouth once daily, 90 days, Refills=3 * true * Date: Generated for Denis salcedo/Uzair/Maribell on: 0 12/28/2024 01:57 PM EDT
--- OUTSIDE RECORDS SUMMARY | 2023-12-18 13:18 | XMS_ITS ---
Author Organization The [facility] in [place] Address [address] [place] [address] Care Team Providers Care Vice President Corporate Communications Name Role Phone Harsh Laguna Primary Care Provider [phone] REASON FOR VISIT RE:Doctor Encounters Encounter Location Date Provider Diagnosis [facility] [address] [place] [address] 12/18/2023 Harsh Laguna Plan Of Treatment No Information Progress Notes * Alia TURCIOS ADOB: [birth year] (28 yo F)Acc No.[id number]:12/18/2023 Patient: Christopher REYES Alia Avani :1995 A ge:28 Y S ex:Female Address:[facility] [address], [place] [address] * true * Date: Generated for Printi ng/Fadavidg/eTransmitting on: 0 12/28/2024 01:56 PM EDT
--- OUTSIDE RECORDS SUMMARY | 2024-04-09 07:00 | XMS_ITS ---
Author Organization The [facility] in [place] Address [address] [place] [address] Care Team Providers Care Student Services Coordinator Name Role Phone Harsh Laguna Primary Care Provider [phone] Allergies No Known Allergies REASON FOR VISIT [...] 04/09/2024 Encounters Encounter Location Date Provider Diagnosis [facility] [address] [facility] [place] [address] 04/09/2024 Harsh Laguna Migraine G43.909 Assessments Encounter [...] * SAQIBREBEKAAlia ADOB: [birth year] (28 yo F)Acc No.[id number]:04/09/2024 Progress Note Patient: Alia BETANCOURT Provider: Sandra Laguna ([facility])MD :1995 A ge:28 Y S ex:Female Date:04/09/2024 Address:[facility] [address], [facility] Check In:10:54 AM ESTCheck O ut:11:45 AM [...] now does more in necka nd into adventism area constant pressure Chnage in headche - [...] Procedure Codes: * Preventive Medicine: Screenings/Counseling: B [place] ACTION PLAN Above Normal BMI Follow-up D ietary management education, guidance, and counseling See treatment section of progress note for complete details of management plan. * * Sign off status: Completed Visit Status: C HK (Check Out) true * Provider: Sandra Laguna ([facility])MD Date: 1 06/09/2023 Generated for Indui denisse/Uzair/eTransmitting on: 0 12/28/2024 01:55 PM EDT History and Physical Notes * HPI (History of Present Illness) Category Sub-Category Detail Notes Category Not es Depression Screening PHQ-2 (2015 Edition) Little interest or pleasure in doing things?: Not at all was on gabapentin for trigeminal neuralgia - not had headaches in the pats\ now does more in necka nd into adventism area constant pressure Chnage in headche - [...]
--- OUTSIDE RECORDS SUMMARY | 2024-09-10 07:15 | XMS_ITS ---
Author Organization [facility] vices Address [address] [place] [phone] Care Team Providers Care Sock Examiner Name Role Phone Heaven Vera Unavailable [phone] Yuliet Lozano Unavailable [phone] REASON FOR VISIT Recall (A) (28) Social History Sex Assigned At : Social History Observation Description Sex Assigned At Female Encounters Encounter Location Date Provider Diagnosis [facility] [address] [place] [phone] 09/10/2024 Yuliet Lozano Plan Of Treatment Next Appt Details Provider Name:Deshawn Moon , 06/10/2025 09:45:00 AM, [address] [place], [place], [phone], Progress Notes * Alia BUNCHDOB: 6 (29 yo F)Acc No.[id number]:09/10/2024 Patient: Alia BETANCOURT Provider: Kimberlee Lozano DMD :1995 A ge:29 Y S ex:Female Date:09/10/2024 Address[address], [id number] Subjective: * Chief Complaints: * 1 . Recall (A) (28). * Medical History: Objective: * Vitals: Assessment: Plan: * Treatment: * Billing Information: * Visit Code: * Procedure Codes: * Electronic signature of Audra Lozano DMD on 12/28/2024 at 01:57 PM EDT Sign off status: Pending * Provider: Kimberlee Lozano DMD Date: 0 09/10/2024 Generated for Denis salcedo/Uzair/Maribell on: 0 12/28/2024 01:57 PM EDT
--- OUTSIDE RECORDS SUMMARY | 2024-12-13 15:15 | XMS_ITS | Encounter Summary ---
Author Organization [facility] tem Address [id number] [address] [place] [address] Care Team Providers Care Picc Nurse Name Role Phone Belén Rooney MD Primary Care Provider + [phone] Reason for Referral * Diagnostic Imaging (Routine) [...] without consult Blaise Woodall MD [address] [facility] 1st [place] [address] Phone: tel: fax: Maternal- Medicine at [facility] [address] [place] [address] Phone: tel: fax: Referral ID Status Reason Start Date Expiration Date V isits Requested Visits Authorized [id number] Pending Review 12/08/2024 12/08/2025 1 1 Reason [...] twin gestation in second trimester Procedures US [facility] with or without consult Blaise Woodall MD [address] [facility] 1st [place] [address] Phone: tel: fax: Maternal- Medicine at [facility] [address] [place] [address] Phone: tel: fax: Referral ID Status Reason Start Date Expiration Date V isits Requested Visits Authorized [id number] Pending Review 12/08/2024 12/08/2025 1 1 Encounter Details Date Type Department Care Team (Latest Contact Info) Description 12/13/2024 3:15 PM EDT - 12/13/2024 11:59 PM EDT Hospital Encounter [facility] US Imaging [address] [place] [address] Intrauterine growth restriction affecting antepartum [...] = 0.6 oz pur e alcohol) [facility] Utilities Answer Date Recorded In the past 12 months has [email or web address], gas, oil, or water [employer] threatened to shut off services in your [...] Info) Description 12/29/2024 11:00 AM EDT Appointment [facility] US Imaging [address] [place] [address] 12/29/2024 1:00 PM EDT Office Visit Maternal- Medicine at [facility] [address] [place] [address] Alex Subramanian MD [address], [address] [place] [address] 01/10/2025 8:30 AM EDT Office Visit Maternal- Medicine at [facility] [address] [place] [address] Jefferson Nava MD [address], [address] [place] [address] documented as of this encounter Procedures Procedure [...] 4:52 PM EDT) Anatomical Region Laterality Modality OB-SCRAP CHARGER Ultrasound 12/13/2024 3:39 PM EDT Narrative 12/13/2024 5:20 PM EDT NAME: ALIVIA HARTMAN MANOJ : 1995 SEX: F Accession Number: [id number] ORDERING PHYSICIAN: BLAISE WOODALL REFERRING PHYSICIAN: VIC MCKEON Coding ----- --------- Procedures 65550: Limited OB / NATHAN, 1 or More Fetuses 37835: Transvaginal Ultrasound (OB) 45432: Doppler velocimetry, ; umbilical artery. 2 67043: Doppler velocimetry, ; middle cerebral artery. 2 43547: Doppler Ductus Venosus. 2 Indication ----- --------- [place]-Di twin , IUGR-Poor growth-twin A & B, Pre term contractions, Supervision of high risk History ----- --------- OB History 1. Para 0 [id number] Maternal Assessment ----- --------- Physical Exam Height [...] view. RVOT view. LVOT view. 3-vessel view. 2-fpnele-kvudcnj view. Cardiac position. Cardiac axis. Cardiac size. [...] HARTMAN : 1995 SEX: F Accession Number: [id number] ORDERING PHYSICIAN: BLAISE WOODALL REFERRING PHYSICIAN: VIC MCKEON Coding ----- --------- Procedures 37116: Limited OB / NATHAN, 1 or More Fetuses 65002: Transvaginal Ultrasound (OB) 63567: Doppler velocimetry, ; umbilical artery. 2 60163: Doppler velocimetry, ; middle cerebral artery. 2 72259: Doppler Ductus Venosus. 2 Indication ----- --------- [place]-Di twin , IUGR-Poor growth-twin A & B, Pre termcontractions, Supervision of high risk History ----- --------- OB History 1. Para 0 [id number] Maternal Assessment ----- --------- Physical Exam Height [...] 4-chamber view. RVOT view. LVOT view. 3-vessel view.7-rwnokn-ozrucrp view. Cardiac position. Cardiac axis. Cardiac size. [...] PI 1.26 <1% Ebbing RI 0.75 27% [facility] PS 30.91 cm/s PS 0.88 MoM ED [...] byprimary OB provider unless otherwise specified by [facility]. Results forwarded to ordering provider so they can follow up with thepatient as necessary. Blaise Woodall MD [facility] ORDERABLES Final Result documented in this encounter Visit Diagnoses Diagnosis Intrauterine growth restriction affecting antepartum care of mother in second trimester, fetus 1 of multiple gestation Intrauterine growth restriction affecting antepartum care of mother in second trimester, fetus 2 of multiple gestation Monochorionic diamniotic twin gestation in second trimester documented in this encounter Care Teams Picc Nurse Relationship Specialty Start Date End Date Belén Rooney MD [facility] [place] [address] PCP - General Family Medicine 09/29/18 documented as of this encounter
--- OUTSIDE RECORDS SUMMARY | 2024-12-14 13:50 | XMS_ITS | Encounter Summary ---
Author Organization [facility] Address [address] [place] [address] Care Team Providers Care Marketing Financial Analyst Name Role Phone Marlon Laguna MD Primary Care Provider [phone] Saul Eugene DO Unavailable Reason for Visit * Reason Comments Routine Visit Encounter Details Date Type Department Care Team (Late st Contact Info) Description 12/14/2024 1:50 PM EDT Routine [facility] [address] [place] [address] Saul Eugene DO [address] [facility] [address] [address] [place], [facility] Second trimester ([facility]); 27 weeks gestation of ([facility]); Monochorionic diamniotic twin gestation in second trimester ([facility]) Social History Tobacco Use Types [...] Sign Reading Time Taken Comments Blood Pressure 122/64 12/14/2024 1:57 PM EDT Pulse - - Temperature - - Respiratory Rate - - Oxygen Saturation - - Inhaled Oxygen Concentration - - Weight 68.7 kg (151 lb 8 oz) 12/14/2024 1:57 PM EDT Height - - Body Mass Index 27.71 02/10/2023 11:39 AM EDT documented in this encounter Progress Notes * Anali Li LPN - 12/14/2024 1:50 PM EDT Reason for Appointment: Patient ID: Alia Pedro is a 29 y.o. female who presents for Routine Visit Patient presents today for Return OB appointment. MEDICATIONS Current Outpatient Medications Medication Instructions Alcohol Swabs (Alcohol Prep Pad) 70 % pads 1 Pad, Topical, Daily, Use four times daily to check FSBS. aspirin 81 mg, Oral, Daily RT Blood Glucose Monitoring Suppl (D-PlaySight Glucometer) w/Device kit 1 kit, Does not apply, Daily, Use four times daily to check FSBS. In the morning prior to breakfast & 1 hour after each meal for a total of 4times daily. docusate sodium (COLACE) 100 mg, 2 times daily Glucose Blood (Blood Glucose Test) strip 1 strip, In Vitro, Daily, Use in the morning prior to breakfast, 1 hour after each meal for a total of 4times daily. Lancets Ultra Thin misc 1 each, In Vitro, Daily, Use to check FSBS four times daily magnesium oxide (MAG-OX) 400 mg, Daily Vit-Fe Fumarate-FA ( Vitamins) 28-0.8 MG tablet 1 tablet, Oral, Daily ALLERGIES No Known Allergies PROBLEMS Active Ambulatory Problems Diagnosis Date Noted No Active Ambulatory Problems Resolved Ambulatory Problems Diagnosis Date Noted No Resolved Ambulatory Problems Past Medical History: Diagnosis Date Abnormal uterine bleeding BMI 26.0-26.9,adult Breast lump Herpangina Ingrown hair Migraine Migraine Paresthesia of hand Trigeminal neuralgia Well woman exam HISTORY PAST MEDICAL HISTORY SOCIAL HISTORY Past Medical History: Diagnosis Date Abnormal uterine bleeding BMI 26.0-26.9,adult Breast lump Herpangina Ingrown hair Migraine Migraine stomach migraine Paresthesia of hand Trigeminal neuralgia Well woman exam Social History Tobacco Use Smoking status: Never Smokeless tobacco: Not on file Substance Use Topics Alcohol use: Not Currently Comment: Occaisonal alcohol use Caffeine:1-2 cups per day Drug use: Never FAMILY HISTORY Family History Problem Relation Name Age of Onset Hypertension Mother Hypertension Father Stroke Father Lung cancer Maternal Grandmother Brain cancer Maternal Grandmother Heart disease Maternal Grandfather Diabetes Maternal Grandfather Lung cancer Paternal Grandmother Heart disease Paternal Grandfather SURGICAL HISTORY Past Surgical History: Procedure Laterality Date APPENDECTOMY 07/2018 Dr. Bess WISDOM TOOTH EXTRACTION [place] teeth REVIEW OF SYSTEMS Review of Systems: Review of Systems Constitutional: Negative. HENT: Negative. Eyes: Negative. Respiratory: Negative. Cardiovascular: Negative. Gastrointestinal: Negative. Genitourinary: Negative. Musculoskeletal: Negative. Skin: Negative. Neurological: Negative. All other systems reviewed and are negative. Hematological: Negative. Endocrine: Negative. Allergic/Immunologic: Negative. OBJECTIVE Objective: Physical Exam Constitutional: Appearance: Normal appearance. She is well-developed. Cardiovascular: Rate and Rhythm: Normal rate and regular rhythm. Pulmonary: Effort: Pulmonary effort is normal. Breath sounds: Normal breath sounds. Abdominal: General: Bowel sounds are normal. There is no distension. Palpations: Abdomen is soft. Tenderness: There is no abdominal tenderness. There is no guarding or rebound. Musculoskeletal: General: No swelling. Normal range of motion. Right lower leg: No edema. Left lower leg: No edema. Neurological: Mental Status: She is alert and oriented to person, place, and time. Skin: General: Skin is warm and dry. Psychiatric: Mood and Affect: Mood normal. Behavior: Behavior normal. Vitals and nursing note reviewed. Exam conducted with a chha present. Vitals: Estimated body mass index is 27.71 kg/m?? as calculated from the following: Height as of 02/10/23: 5' 2 . Weight as of this encounter: 151 lb 8 oz. BP: 122/64 Patient's last menstrual period was 06/08/2024. ASSESSMENT & PLAN ICD-10-CM 1. Second trimester ([facility]) Z34.92 POCT urinalysis dipstick manually resulted 2. 27 weeks gestation of ([facility]) Z3A.27 3. Monochorionic diamniotic twin gestation in second trimester ([facility]) O30.032 Return OB: Patient presents today for a routine obstetrics appointment. Patient is currently 27w0d . Patient states she is doing well but has complaints of being tired due to current . Patient has verbalizes frequent movement. labor precautions was discussed/given and patient was instructed to perform kick counts three times a day. Both babies are head down, baby a is atthe 4th% (IUGR), baby B at the 8th%. Orders Placed This Encounter Procedures POCT urinalysis dipstick manually resulted Follow Up: Patient is to return to office in 2 week for routine OB appointment. Documented by Anali Li LPN on behalf of: Saul Eugene DO documented in this encounter Plan of Treatment Upcoming Encounters Date Type Department Care Team (Late st Contact Info) Description 12/30/2024 11:30 AM EDT Routine [facility] [address] [place] [phone] Saul Eugene DO [address] [place] [address] 03/28/2025 2:00 PM EST Office Visit [facility] [address] [place] [address] Saul Eugene DO [address] [address] documented as of this encounter Goals Goal Patient Goal Type Associated Problems Recent Progress Patient-Stated? Author Reminders Care Plan OB Reminders No Open Scheduling, Background documented as of this encounter Procedures Procedure Name Priority Date/Time Associated Diagnosis Comments POCT URINALYSIS DIPSTICK Routine 12/14/2024 2:03 PM EDT Second trimester ([facility]) documented in this encounter Results * POCT urinalysis dipstick manually resulted (12/14/2024 2:03 PM EDT) Color, UA Yellow Clarity, UA Clear Glucose, UA Negative Negative - 2000(110) ++++ mg/dL Bilirubin, UA Negative Negative - 4(70) +++ mg/dL Ketones, UA Negative Negative - 160(16) ++++ mg/dL Spec Grav, UA 1.005 1 - 1.03 Blood, UA Negative Negative - 50 Nuno/mcL pH, UA 6.5 5 - 9 Protein, UA Negative Negative - 1999(20) ++++ mg/dL Urobilinogen, UA 0.2 0.2 - 12 mg/dL Leukocytes, UA Negative Negative - 500+++ Lisa/mcL Nitrite, UA Negative Negative - Positive Urine 12/14/2024 2:03 PM EDT Saul Eugene DO POINT OF CARE TEST ENTER/EDIT OR DERABLES Final Result documented in this encounter Visit Diagnoses Diagnosis Second trimester ([facility]) state, incidental 27 weeks gestation of ([facility]) Monochorionic diamniotic twin gestation in second trimester ([facility]) documented in this encounter Additional Health Concerns Active Problems Noted Date Diagnosed Date OB Reminders 08/14/2024 documented as of this encounter Care Teams Marketing Financial Analyst Relationship Specialty Start Date End Date Marlon aLguna MD [address] [place] [address] PCP - General Family Medicine 08/29/23 Saul Eugene DO [address] [place] [address] [place] [address] Referring Physician Obstetrics and Gynecology 08/16/24 documented as of this encounter
--- OUTSIDE RECORDS SUMMARY | 2024-12-20 14:54 | XMS_ITS | Encounter Summary ---
Author Organization [employer])[facility] centerParacosm [facility] tem Address [id number] [address] [place] [address] Care Team Providers Care Sand Temperer Name Role Phone Belén Rooney MD Primary Care Provider + [phone] Reason for Referral * Diagnostic Imaging (Routine) [...] without consult Blaise Woodall MD [address] [facility] 1st [place] [address] Phone: tel: fax: Maternal- Medicine at [facility] [address] [place] [address] Phone: tel: fax: Referral ID Status Reason Start Date Expiration Date V isits Requested Visits Authorized [id number] Pending Review 12/08/2024 12/08/2025 1 1 Reason [...] twin gestation in second trimester Procedures US [facility] with or without consult Blaise Woodall MD [address] [facility] 1st [place] [address] Phone: tel: fax: Maternal- Medicine at [facility] [address] [place] [address] Phone: tel: fax: Referral ID Status Reason Start Date Expiration Date V isits Requested Visits Authorized [id number] Pending Review 12/08/2024 12/08/2025 1 1 Encounter Details Date Type Department Care Team (Latest Contact Info) Description 12/20/2024 2:54 PM EDT - 12/20/2024 11:59 PM EDT Hospital Encounter [facility] US Imaging [address] [place] [address] Intrauterine growth restriction affecting antepartum [...] = 0.6 oz pur e alcohol) [facility] Utilities Answer Date Recorded In the past 12 months has [employer], gas, oil, or water [employer] threatened to shut off services in your [...] Info) Description 12/29/2024 11:00 AM EDT Appointment [facility] US Imaging [address] [place] [address] 12/29/2024 1:00 PM EDT Office Visit Maternal- Medicine at [facility] [address] [place] [address] Alex Subramanian MD [address], [address] [place] [address] 01/10/2025 8:30 AM EDT Office Visit Maternal- Medicine at [facility] [address] [place] [address] Jefferson Nava MD [address], [address] [place] [address] documented as of this encounter Procedures Procedure [...] 3:58 PM EDT) Anatomical Region Laterality Modality OB-ELECTRIC METER INSTALLER HELPER Ultrasound 12/20/2024 3:17 PM EDT Narrative 12/20/2024 4:11 PM EDT NAME: ALIVIA HARTMAN MANOJ : 1995 SEX: F Accession Number: [id number] ORDERING PHYSICIAN: BLAISE WOODALL REFERRING PHYSICIAN: VIC MCKEON Coding ----- --------- Procedures 30534: Limited OB / NATHAN, 1 or More Fetuses 27785: Doppler velocimetry, ; umbilical artery. 2 55508: Doppler velocimetry, ; middle cerebral artery. 2 75502: Doppler Ductus Venosus. 2 Indication ----- --------- [place] twin , IUGR-Poor growth-twin A & B, Pre term contractions, Supervision of high risk History ----- --------- OB History 1. Para 0 [id number] Maternal Assessment ----- --------- Physical Exam Height [...] HARTMAN : 1995 SEX: F Accession Number: [id number] ORDERING PHYSICIAN: BLAISE WOODALL REFERRING PHYSICIAN: VIC MCKEON Coding ----- --------- Procedures 36361: Limited OB / NATHAN, 1 or More Fetuses 43733: Doppler velocimetry, ; umbilical artery. 2 01493: Doppler velocimetry, ; middle cerebral artery. 2 88260: Doppler Ductus Venosus. 2 Indication ----- --------- [place] twin , IUGR-Poor growth-twin A & B, Pre termcontractions, Supervision of high risk History ----- --------- OB History 1. Para 0 [id number] Maternal Assessment ----- --------- Physical Exam Height [...] thepatient as necessary. us Blaise Woodall MD [facility] US ORDERABLES Final Result documented in this encounter Visit Diagnoses Diagnosis Intrauterine growth restriction affecting antepartum care of mother in second trimester, fetus 1 of multiple gestation Intrauterine growth restriction affecting antepartum care of mother in second trimester, fetus 2 of multiple gestation Monochorionic diamniotic twin gestation in second trimester documented in this encounter Care Teams Sand Temperer Relationship Specialty Start Date End Date Belén Rooney MD [address] [place] [address] (work) PCP - General Family Medicine 09/29/18 documented as of this encounter
--- OUTSIDE RECORDS SUMMARY | 2024-12-23 04:45 | XMS_ITS ---
Author Organization [facility] vices Address [address] [place] [phone] Care Team Providers Care Commodity Supervisor Name Role Phone Heaven Vera Unavailable [phone] Deshawn Moon Unavailable [phone] REASON FOR VISIT Recall (A) 29 Social History Sex Assigned At : Social History Observation Description Sex Assigned At Female Encounters Encounter Location Date Provider Diagnosis Dental Main [address] [place] [phone] 12/23/2024 Deshawn Moon Plan Of Treatment Next Appt Details Provider Name:Deshawn Moon , 06/10/2025 09:45:00 AM, [address] [place], [place], [phone], Progress Notes * Alia BUNCHDOB: [birth year] (29 yo F)Acc No.[id number]:12/23/2024 Patient: Alia BETANCOURT Provider: Christopher Moon DDS :1995 A ge:29 Y S ex:Female Date:12/23/2024 Address:[address] [place], [id number] Subjective: * Chief Complaints: * 1 . Recall (A) 29. * Medical History: Objective: * Vitals: Assessment: Plan: * Treatment: * Billing Information: * Visit Code: * Procedure Codes: * Electronic signature of Nessa Moon DDS on 12/28/2024 at 01:56 PM EDT Sign off status: Pending * Provider: Christopher Moon DDS Date: 0 12/23/2024 Generated for Denis salcedo/Uzair/Maribell on: 0 12/28/2024 01:56 PM EDT
--- NOTE | 2024-12-28 13:55 | US_ITS ---
[address] [address] Patient Name: MINNIE BUNCH MRN: [id number] date: 1995 Sex: F Assigned Patient Location: [facility] Current Patient Location: Accession/Order Number: [id number] Exam Date: 12/28/2024 15:37 Report Date: 12/28/2024 15:38 At the request of: VIC MCKEON DO Procedure: US OB BPP w non-stress Biophysical profile. Reason for exam: Twin COMPARISON: 12/24/2024 TECHNIQUE: The appraiser auditor reports a fetus A BPP of 8 out of 8. MVP is 4.8 cm. heart rate 141 bpm. The appraiser auditor reports fetus B BPP of 8 out of 8. MVP is 5.7 cm. heart rate 150 bpm. US/US OB BPP w non-stress IMPRESSION: BPP 8out of 8 for Fetus A. BPP 8 out of 8 for fetus B. Impression dictated by: Barrington Spears Jr., D.O. 12/28/2024 3:38 PM Dictation Location: [facility] Electronically authenticated by: [id number] Y Date: 12/28/2024 15:38
--- NOTE | 2024-12-28 13:55 | US_ITS ---
The [address] [address] Patient Name: MINNIE BUNCH MRN: [id number] date: 1995 Sex: F Assigned Patient Location: US Current Patient Location: Accession/Order Number: [id number] Exam Date: 12/28/2024 15:37 Report Date: 12/28/2024 15:38 At the request of: VIC MCKEON DO Procedure: US OB BPP w non-stress Biophysical profile. Reason for exam: Twin COMPARISON: 12/24/2024 TECHNIQUE: The personal clothing laundry aide reports a fetus A BPP of 8 out of 8. MVP is 4.8 cm. heart rate 141 bpm. The personal clothing laundry aide reports fetus B BPP of 8 out of 8. MVP is 5.7 cm. heart rate 150 bpm. US/US OB BPP w non-stress IMPRESSION: BPP 8out of 8 for Fetus A. BPP 8 out of 8 for fetus B. Impression dictated by: Barrington Spears Jr., D.O. 12/28/2024 3:38 PM Dictation Location: [place] [address] Electronically authenticated by: [id number] Y Date: 12/28/2024 15:38
--- OUTSIDE RECORDS SUMMARY | 2024-12-28 13:56 | XMS_ITS | Encounter Summary ---
Author Organization [facility] Address [address] [place] [address] Care Team Providers Care Licensing Registration Examiner Name Role Phone Marlon Laguna MD Primary Care Provider [phone] Saul Eugene DO Unavailable Encounter Details Date Type Department Care Team (Late st Contact Info) Description 08/16/2024 Abstract [facility] PALMER [address] [place] [phone] Saul Eugene DO [address] [place], [facility] Social History Tobacco Use Types Packs/Day [...] PALMER [address] [place] [address] Saul Eugene DO [address] [place] [address] 03/28/2025 2:00 PM EST Office Visit [facility] [address] [place] [phone] Saul Eugene DO [address] [facility] [place] [address] documented as of this encounter Goals Goal Patient Goal Type Associated Problems Recent Progress Patient-Stated? Author Reminders Care Plan OB Reminders No Open Scheduling, Background documented as of this encounter Visit Diagnoses Not on filedocumented in this encounter Additional Health Concerns Active Problems Noted Date Diagnosed Date OB Reminders 08/14/2024 documented as of this encounter Care Teams Licensing Registration Examiner Relationship Specialty Start Date End Date Marlon Laguna MD [address] [facility] [place] [address] PCP - General Family Medicine 08/29/23 Saul Eugene DO [address] [place] [address] Referring Physician Obstetrics and Gynecology 08/16/24 documented as of this encounter
--- OUTSIDE RECORDS SUMMARY | 2024-12-28 13:56 | XMS_ITS | Encounter Summary ---
Author Organization [facility] [employer] [facility] tem Address [facility] [id number] [address] [place] [address] Care Team Providers Care Tax Commissioner Name Role Phone Belén Rooney MD Primary Care Provider Encounter Details Date Type Department Care Team (Late st Contact Info) Description 11/23/2024 Orders Only Maternal- Medicine at [facility] [address] [facility] [place] [phone] Susan Beltran LPN Monochorionic diamniotic twin gestation [...] oz pur e alcohol) RARE [facility] Utilities Answer Date Recorded In the past 12 months has [employer] electric, gas, oil, or water company threatened [...] Info) Description 12/29/2024 11:00 AM EDT Appointment [facility] - [facility] US Imaging [address] [place] [phone] 12/29/2024 1:00 PM EDT Office Visit Maternal- Medicine at [facility] [address] [place] [phone] Alex Subramanian MD [address], [address] [place] [address] 01/10/2025 8:30 AM EDT Office Visit Maternal- Medicine at [facility] [address] [place] [phone] Jefferson Nava MD [address], [address] [place] [address] documented as of this encounter Procedures Procedure [...] Palpitations documented in this encounter Care Teams Tax Commissioner Relationship Specialty Start Date End Date Belén Rooney MD [address] [place] [phone] PCP - General Family Medicine 09/29/18 documented as of this encounter
--- OUTSIDE RECORDS SUMMARY | 2024-12-28 13:56 | XMS_ITS | Encounter Summary ---
Author Organization [facility] [employer] [facility] tem Address [id number] [address] [place] [address] Care Team Providers Care Lot Boss Name Role Phone Belén Rooney MD Primary Care Provider [phone] Encounter Details Date Type Department Care Team (Late st Contact Info) Description 12/06/2024 Orders Only Maternal- Medicine at [facility] [address] [place] [phone] Ref Prov, [place] [address] Social History Tobacco Use Types Packs/Day Years Used Date Smoking Tobacco: Never Smokeless Tobacco: Never Alcohol Use Standard Drinks/Week Comments Not Currently 0 (1 standard drink = 0.6 oz pur e alcohol) [facility]ARE [facility] Utilities Answer Date Recorded In the past 12 months has [employer], gas, oil, or water [employer] threatened to shut off services in your [...] Info) Description 12/29/2024 11:00 AM EDT Appointment [facility] - [facility] US Imaging [address] [place] [phone] 12/29/2024 1:00 PM EDT Office Visit Maternal- Medicine at [facility] [address] [place] [phone] Alex Subramanian MD [address], [address] [place] [address] 01/10/2025 8:30 AM EDT Office Visit Maternal- Medicine at [facility] [address] [place] [phone] Jefferson Nava MD [address], [address] [place] [address] documented as of this encounter Procedures Procedure [...] on filedocumented in this encounter Care Teams Lot Boss Relationship Specialty Start Date End Date Belén Rooney MD [address] [place] [phone] PCP - General Family Medicine 09/29/18 documented as of this encounter
--- OUTSIDE RECORDS SUMMARY | 2024-12-28 13:56 | XMS_ITS | Encounter Summary ---
Author Organization [employer] [facility] tem Address [id number] [address] [place] [address] Care Team Providers Care Malware Analyst Name Role Phone Belén Rooney MD Primary Care Provider [phone] Reason for Referral * Diagnostic Imaging (Routine) - Pending Review Specialty Diagnoses / Procedures Referred By Burt sellers Referred To Contact Maternal and Medicine Diagnoses Monochorionic diamniotic twin gestation in second trimester Procedures US [facility] with or without consult Benjamin Subramanian MD [address] [address] Phone: tel: fax: Maternal- Medicine at [facility] [address] [place] [address] Phone: tel: fax: Referral ID Status Reason Start Date Expiration Date V isits Requested Visits Authorized [id number] Pending Review 10/13/2024 10/13/2025 1 1 Encounter Details Date Type Department Care Team (Late st Contact Info) Description 10/13/2024 Orders Only Maternal- Medicine at [facility] [address] [place] [phone] Brooklyn Campos RN Monochorionic diamniotic twin gestation [...] Info) Description 12/29/2024 11:00 AM EDT Appointment [facility] - [facility] US Imaging [address] [place] [phone] 12/29/2024 1:00 PM EDT Office Visit Maternal- Medicine at [facility] [address] [place] [address] Benjamin Subramanian MD [address], [address] [place] [address] 01/10/2025 8:30 AM EDT Office Visit Maternal- Medicine at [facility] [address] [place] [phone] Jefferson Nava MD [address], [address] [place] [address] documented as of this encounter Results * US MFM LMTD OB, 1 OR MORE FETUS (11/22/2024 9:53 AM EDT) Anatomical Region Laterality Modality OB-SAMPLE SUPERVISOR Ultrasound 11/22/2024 8:10 AM EDT Narrative 11/22/2024 10:59 AM EDT NAME: ALIVIA HARTMAN : 1995 SEX: F Accession Number: [id number] ORDERING PHYSICIAN: BENJAMIN SUBRAMANIAN REFERRING PHYSICIAN: VIC MCKEON Coding ----- --------- Procedures 78771: Limited OB / NATHAN, 1 or More Fetuses 20820: Doppler velocimetry, ; umbilical artery. 2 15793: Doppler velocimetry, ; middle cerebral artery. 2 87550: Doppler Ductus Venosus. 2 Indication ----- --------- [place]-Di twin , IUGR-Poor growth-twin A, Pre term contractions, Supervision of high risk (elevated Doppler - Twin B) History ----- --------- OB History 1. Para 0 [id number] Maternal Assessment ----- --------- Physical Exam Height [...] view. RVOT view. LVOT view. 3-vessel view. 7-pjppla-fzqrewd view. Situs. Bicaval view. Cardiac position. Cardiac [...] HARTMAN : 1995 SEX: F Accession Number: [id number] ORDERING PHYSICIAN: BENJAMIN SUBRAMANIAN REFERRING PHYSICIAN: VIC MCKEON Coding ----- --------- Procedures 07410: Limited OB / NATHAN, 1 or More Fetuses 13052: Doppler velocimetry, ; umbilical artery. 2 96846: Doppler velocimetry, ; middle cerebral artery. 2 64120: Doppler Ductus Venosus. 2 Indication ----- --------- [place]-Di twin , IUGR-Poor growth-twin A, Pre termcontractions, Supervision of high risk (elevated Doppler - Twin B) History ----- --------- OB History 1. Para 0 [id number] Maternal Assessment ----- --------- Physical Exam Height [...] 4-chamber view. RVOT view. LVOT view. 3-vessel view.4-slesoe-zsgipax view. Situs. Bicaval view. Cardiac position. Cardiac [...] byprimary OB provider unless otherwise specified by [facility]. Results forwarded to ordering provider so they can follow up with thepatient as necessary. us Benjamin Subramanian MD IM US ORDERABLES Final Re sult documented in this encounter Visit Diagnoses Diagnosis Monochorionic diamniotic twin gestation in second trimester- Primary Monochorionic diamniotic twin gestation in second trimester documented in this encounter Care Teams Malware Analyst Relationship Specialty Start Date End Date Belén Rooney MD [address] [place] [phone] PCP - General Family Medicine 09/29/18 documented as of this encounter
--- OUTSIDE RECORDS SUMMARY | 2024-12-28 13:56 | XMS_ITS | Encounter Summary ---
Author Organization [employer] tem Address [facility][id number] [address] [place] [address] Care Team Providers Care Rail Car Driver Name Role Phone Belén Rooney MD Primary Care Provider Encounter Details Date Type Department Care Team (Latest Contact Info) Description 12/18/2024 Travel Social History Tobacco Use Types Packs/Day Years Used Date Smoking Tobacco: Never Smokeless Tobacco: Never Alcohol Use Standard Drinks/Week Comments Not Currently 0 (1 standard drink = 0.6 oz pur e alcohol) [facility]ARE [facility] Utilities Answer Date Recorded In the [...] Info) Description 12/29/2024 11:00 AM EDT Appointment [facility] US Imaging [address] [facility] [place] [address] 12/29/2024 1:00 PM EDT Office Visit Maternal- Medicine at [facility] [address] [facility] [place] [address] Alex Subramanian MD [address], [address] [place] [address] 01/10/2025 8:30 AM EDT Office Visit Maternal- Medicine at [facility] [address] [facility] [place] [address] Jefferson Nava MD [address], [address] [place] [address] documented as of this encounter Visit Diagnoses Not on filedocumented in this encounter Care Teams Rail Car Driver Relationship Specialty Start Date End Date Belén Rooney MD [address] [place] [phone] PCP - General Family Medicine 09/29/18 documented as of this encounter
--- OUTSIDE RECORDS SUMMARY | 2024-12-28 13:56 | XMS_ITS | Encounter Summary ---
Author Organization [facility] Address [address] [place] [address] Care Team Providers Care Tobacco Feeder Catcher Name Role Phone Marlon Laguna MD Primary Care Provider [phone] Saul Eugene DO Unavailable Encounter Details Date Type Department Care Team (Late st Contact Info) Description 08/16/2024 Abstract KOKO PALMER [address] [place] [phone] Saul Eugene DO [address] [place], [facility]11 Social History Tobacco Use Types Packs/Day [...] NOMKt PALMER [address] [place] [address] Saul Eugene DO [address] [place] [address] 03/28/2025 2:00 PM EST Office Visit [facility] [address] [facility] [place] [address] Saul Eugene DO [address] [facility] [place] [address] documented as of this encounter Goals Goal Patient Goal Type Associated Problems Recent Progress Patient-Stated? Author Reminders Care Plan OB Reminders No Open Scheduling, Background documented as of this encounter Visit Diagnoses Not on filedocumented in this encounter Additional Health Concerns Active Problems Noted Date Diagnosed Date OB Reminders 08/14/2024 documented as of this encounter Care Teams Tobacco Feeder Catcher Relationship Specialty Start Date End Date Marlon Laguna MD [address] [facility] [address] PCP - General Family Medicine 08/29/23 Saul Eugene DO [address] [place] [address] Referring Physician Obstetrics and Gynecology 08/16/24 documented as of this encounter
--- OUTSIDE RECORDS SUMMARY | 2024-12-28 13:56 | XMS_ITS | Encounter Summary ---
Author Organization [facility] Address [address] [place] [address] Care Team Providers Care Route Driver Coin Machines Name Role Phone Marlon Laguna MD Primary Care Provider [phone] Saul Eugene DO Unavailable Encounter Details Date Type Department Care Team (Late Contact Info) Description 03/03/2024 Orders Only [facility] [address] [place] [address] Gabrielle Mayer LPN [address] [place] [phone] Social History Tobacco Use Types Packs/Day Years [...] AM EDT Routine [facility] [address] [address] Saul Eugene DO [address] [facility] [place] [address] 03/28/2025 2:00 PM EST Office Visit [facility] [address] [facility] [place] [address] Saul Eugene DO [address] [facility] [place] [address] documented as of this encounter Procedures Procedure Name Priority Date/Time Associated Diagnosis Comments PAP SMEAR Routine 02/23/2024 12:00 AM EDT documented in this encounter Results * Pap Smear (02/23/2024 12:00 AM EDT) Swab Cervical swab / Unknown us Saul Eugene DO LAB CYTOLOGY ORDERABLES Final Re sult EXTERNAL LAB documented in this encounter Visit Diagnoses Not on filedocumented in this encounter Care Teams Route Driver Coin Machines Relationship Specialty Start Date End Date Marlon Laguna MD [address] [place] [address] PCP - General Family Medicine 08/29/23 Saul Eugene DO [address] [facility] [place] [address] Referring Physician Obstetrics and Gynecology 08/16/24 documented as of this encounter
--- OUTSIDE RECORDS SUMMARY | 2024-12-28 13:56 | XMS_ITS | Encounter Summary ---
Author Organization [facility] Address [address] [place] [address] Care Team Providers Care Satellite Tv Installer Name Role Phone Marlon Laguna MD Primary Care Provider [phone] Saul Eugene DO Unavailable Encounter Details Date Type Department Care Team (Late st Contact Info) Description 08/16/2024 Abstract KOKO PALMER [address] [place] [phone] Saul Eugene DO [address] [place], [facility]11 Social History Tobacco Use Types Packs/Day Years [...] NOMKt PALMER [address] [place] [address] Saul Eugene DO [address] [place] [address] 03/28/2025 2:00 PM EST Office Visit [facility] [address] [facility] [place] [address] Saul Eugene DO [address] [facility] [place] [address] documented as of this encounter Goals Goal Patient Goal Type Associated Problems Recent Progress Patient-Stated? Author Reminders Care Plan OB Reminders No Open Scheduling, Background documented as of this encounter Visit Diagnoses Not on filedocumented in this encounter Additional Health Concerns Active Problems Noted Date Diagnosed Date OB Reminders 08/14/2024 documented as of this encounter Care Teams Satellite Tv Installer Relationship Specialty Start Date End Date Marlon Laguna MD [address] [facility] [place] [address] PCP - General Family Medicine 08/29/23 Salu Eugene DO [address] [place] [address] Referring Physician Obstetrics and Gynecology 08/16/24 documented as of this encounter
--- OUTSIDE RECORDS SUMMARY | 2024-12-28 13:56 | XMS_ITS | Encounter Summary ---
Author Organization [employer] tem Address [id number] [address] [place] [address] Care Team Providers Care Machine Technician Name Role Phone Belén Rooney MD Primary Care Provider Encounter Details Date Type Department Care Team (Latest Contact Info) Description 12/27/2024 Travel Social History Tobacco Use Types Packs/Day [...] 12/29/2024 11:00 AM EDT Appointment [facility] US Imaging [address] [facility] [place] [address] 12/29/2024 1:00 PM EDT Office Visit Maternal- Medicine at [facility] [address] [facility] [place] [address] Alex Subramanian MD [address], [address] [place] [address] 01/10/2025 8:30 AM EDT Office Visit Maternal- Medicine at [facility] [address] [facility] [place] [address] Jefferson Nava MD [address], [address] [place] [address] documented as of this encounter Visit Diagnoses Not on filedocumented in this encounter Care Teams Machine Technician Relationship Specialty Start Date End Date Belén Rooney MD [address] [place] [phone] PCP - General Family Medicine 09/29/18 documented as of this encounter
--- OUTSIDE RECORDS SUMMARY | 2024-12-28 13:56 | XMS_ITS | Encounter Summary ---
Author Organization [facility] Address [address] [place] [address] Care Team Providers Care Crew Truck Driver Name Role Phone Marlon Laguna MD Primary Care Provider [phone] Saul Eugene DO Unavailable Encounter Details Date Type Department Care Team (Late st Contact Info) Description 12/01/2024 Abstract [facility] [address] [place] [address] Ximena Aly MA Social [...] EDT Routine [facility] [address] [place] [address] Saul Eugene DO [address] [place] [address] 03/28/2025 2:00 PM EST Office Visit [facility] [address] [place] [phone] Saul Eugene DO [address] [place] [address] documented as of this encounter Goals Goal Patient Goal Type Associated Problems Recent Progress Patient-Stated? Author Reminders Care Plan OB Reminders No Open Scheduling, Background documented as of this encounter Visit Diagnoses Not on filedocumented in this encounter Additional Health Concerns Active Problems Noted Date Diagnosed Date OB Reminders 08/14/2024 documented as of this encounter Care Teams Crew Truck Driver Relationship Specialty Start Date End Date Marlon Laguna MD [address] [facility] [place] [phone] PCP - General Family Medicine 08/29/23 Saul Eugene DO [address] [place] [address] Referring Physician Obstetrics and Gynecology 08/16/24 documented as of this encounter
--- OUTSIDE RECORDS SUMMARY | 2024-12-28 13:56 | XMS_ITS | Encounter Summary ---
Author Organization [facility] Address [address] [place] [address] Care Team Providers Care Injection Moulding Machine Operator Name Role Phone Marlon Laguna MD Primary Care Provider [phone] Saul Eugene DO Unavailable Encounter Details Date Type Department Care Team (Late st Contact Info) Description 12/06/2024 Abstract [facility] PALMER [address] [place] [phone] Saul Eugene DO [address] [place], [facility] Social History Tobacco Use Types Packs/Day Years [...] PALMER [address] [place] [address] Saul Eugene DO [address] [place] [address] 03/28/2025 2:00 PM EST Office Visit [facility] [address] [facility] [place] [address] Saul Eugene DO [address] [facility] [place] [address] documented as of this encounter Goals Goal Patient Goal Type Associated Problems Recent Progress Patient-Stated? Author Reminders Care Plan OB Reminders No Open Scheduling, Background documented as of this encounter Visit Diagnoses Not on filedocumented in this encounter Additional Health Concerns Active Problems Noted Date Diagnosed Date OB Reminders 08/14/2024 documented as of this encounter Care Teams Injection Moulding Machine Operator Relationship Specialty Start Date End Date Marlon Laguna MD [address] [facility] [place] [address] PCP - General Family Medicine 08/29/23 Saul Eugene DO [address] [place] [address] Referring Physician Obstetrics and Gynecology 08/16/24 documented as of this encounter
--- OUTSIDE RECORDS SUMMARY | 2024-12-28 13:56 | XMS_ITS | Encounter Summary ---
Author Organization [facility] tem Address [id number] [address] [place] [address] Care Team Providers Care Slasher Tender Helper Name Role Phone Belén Rooney MD Primary Care Provider Encounter Details Date Type Department Care Team (Late st Contact Info) Description 11/04/2024 Orders Only Maternal- Medicine at [facility] [address] [facility] [place] [phone] Susan Beltran LPN Intrauterine growth restriction affecting [...] oz pur e alcohol) [facility] Utilities Answer Date Recorded In the past 12 months has [employer] electric, gas, oil, or water company threatened [...] Info) Description 12/29/2024 11:00 AM EDT Appointment [facility] [address] [place] [phone] 12/29/2024 1:00 PM EDT Office Visit Maternal- Medicine at [facility] [address] [place] [phone] Alex Subramanian MD [address], [address] [place] [address] 01/10/2025 8:30 AM EDT Office Visit Maternal- Medicine at [facility] [address] [place] [phone] Jefferson Nava MD [address], [address] [place] [address] documented as of this encounter Procedures Procedure [...] Palpitations documented in this encounter Care Teams Slasher Tender Helper Relationship Specialty Start Date End Date Belén Rooney MD [address] [place] [phone] PCP - General Family Medicine 09/29/18 documented as of this encounter
--- OUTSIDE RECORDS SUMMARY | 2024-12-28 13:57 | XMS_ITS | Encounter Summary ---
Author Organization [facility] Address [address] [place] [address] Care Team Providers Care Solvent Plant Treater Name Role Phone Marlon Laguna MD Primary Care Provider [phone] Saul Eugene DO Unavailable Encounter Details Date Type Department Care Team (Late st Contact Info) Description 11/24/2024 Abstract [facility] [address] [place] [phone] Saul Eugene DO [address] [place], [id number] Social History Tobacco Use Types Packs/Day Years [...] [facility] [address] [place] [address] Saul Eugene DO [address] [place] [address] 03/28/2025 2:00 PM EST Office Visit [facility] [place] [facility] [address] [place] [phone] Saul Eugene DO [address] [facility] [address] [place] [address] documented as of this encounter Goals Goal Patient Goal Type Associated Problems Recent Progress Patient-Stated? Author Reminders Care Plan OB Reminders No Open Scheduling, Background documented as of this encounter Visit Diagnoses Not on filedocumented in this encounter Additional Health Concerns Active Problems Noted Date Diagnosed Date OB Reminders 08/14/2024 documented as of this encounter Care Teams Solvent Plant Treater Relationship Specialty Start Date End Date Marlon Laguna MD [address] [facility] [place] [address] PCP - General Family Medicine 08/29/23 Saul Eugene DO [address] [place] [address] Referring Physician Obstetrics and Gynecology 08/16/24 documented as of this encounter
--- OUTSIDE RECORDS SUMMARY | 2024-12-28 13:57 | XMS_ITS | Encounter Summary ---
Author Organization [facility] Address [address] [place] [address] Care Team Providers Care Medical Information Officer Name Role Phone Marlon Laguna MD Primary Care Provider [phone] Saul Eugene DO Unavailable Encounter Details Date Type Department Care Team (Late Contact Info) Description 10/01/2024 Orders Only [facility] [place] [facility] [address] [place] [address] Ximena Aly MA Social History Tobacco [...] Routine [facility] [place] [facility] [address] [place] [address] Saul Eugene DO [address] [place] [address] 03/28/2025 2:00 PM EST Office Visit [facility] [place] [facility] [address] [place] [phone] Saul Eugene DO [address] [address] documented as of this encounter Goals Goal [...] documented as of this encounter Care Teams Medical Information Officer Relationship Specialty Start Date End Date Marlon Laguna MD [address] [facility] [place] [address] PCP - General Family Medicine 08/29/23 Saul Eugene DO [address] [place] [address] Referring Physician Obstetrics and Gynecology 08/16/24 documented as of this encounter
--- OUTSIDE RECORDS SUMMARY | 2024-12-28 13:57 | XMS_ITS | Encounter Summary ---
Author Organization [facility] Address [address] [place] [address] Care Team Providers Care Wash Box Operator Name Role Phone Marlon Laguna MD Primary Care Provider [phone] Saul Eugene DO Unavailable Encounter Details Date Type Department Care Team (Late st Contact Info) Description 10/11/2024 Abstract [facility] [address] [place] [phone] Saul Eugene DO [address] [place], [id number] Social History Tobacco Use Types Packs/Day Years [...] [facility] [address] [place] [address] Saul Eugene DO [address] [place] [address] 03/28/2025 2:00 PM EST Office Visit [facility] [place] [facility] [address] [facility] [place] [phone] Saul Eugene DO [address] [facility] [place] [address] documented as of this encounter Goals Goal Patient Goal Type Associated Problems Recent Progress Patient-Stated? Author Reminders Care Plan OB Reminders No Open Scheduling, Background documented as of this encounter Visit Diagnoses Not on filedocumented in this encounter Additional Health Concerns Active Problems Noted Date Diagnosed Date OB Reminders 08/14/2024 documented as of this encounter Care Teams Wash Box Operator Relationship Specialty Start Date End Date Marlon Laguna MD [address] [facility] [place] [address] PCP - General Family Medicine 08/29/23 Saul Eugene DO [address] [place] [address] Referring Physician Obstetrics and Gynecology 08/16/24 documented as of this encounter
--- OUTSIDE RECORDS SUMMARY | 2024-12-28 13:57 | XMS_ITS | Encounter Summary ---
Author Organization [facility] Address [address] [place] [address] Care Team Providers Care Endocrinologist Name Role Phone Marlon Laguna MD Primary Care Provider [phone] Saul Eugene DO Unavailable Encounter Details Date Type Department Care Team (Late st Contact Info) Description 11/22/2024 Abstract [facility] [address] [place] [phone] Saul Eugene DO [address] [place], [place] [...] [facility] [address] [place] [address] Saul Eugene DO [address] [place] [address] 03/28/2025 2:00 PM EST Office Visit [facility] [place] [facility] [address] [facility] [place] [phone] Saul Eugene DO [address] [facility] [place] [address] documented as of this encounter Goals Goal Patient Goal Type Associated Problems Recent Progress Patient-Stated? Author Reminders Care Plan OB Reminders No Open Scheduling, Background documented as of this encounter Visit Diagnoses Not on filedocumented in this encounter Additional Health Concerns Active Problems Noted Date Diagnosed Date OB Reminders 08/14/2024 documented as of this encounter Care Teams Endocrinologist Relationship Specialty Start Date End Date Marlon Laguna MD [address] [facility] [place] [address] PCP - General Family Medicine 08/29/23 Saul Eugene DO [address] [place] [address] Referring Physician Obstetrics and Gynecology 08/16/24 documented as of this encounter
--- OUTSIDE RECORDS SUMMARY | 2024-12-28 13:57 | XMS_ITS | Encounter Summary ---
Author Organization [facility] Address [address] [place] [address] Care Team Providers Care Echocardiograph Tech Name Role Phone Marlon Laguna MD Primary Care Provider [phone] Saul Eugene DO Unavailable Encounter Details Date Type Department Care Team (Late st Contact Info) Description 09/28/2024 Abstract [facility] [address] [place] [phone] Saul Eugene DO [address] [place], [id number] Social History Tobacco Use Types Packs/Day Years [...] [facility] [address] [place] [address] Saul Eugene DO [address] [place] [address] 03/28/2025 2:00 PM EST Office Visit [facility] [place] [facility] [address] [place] [phone] Saul Eugene DO [address] [facility] [place] [address] documented as of this encounter Goals Goal Patient Goal Type Associated Problems Recent Progress Patient-Stated? Author Reminders Care Plan OB Reminders No Open Scheduling, Background documented as of this encounter Visit Diagnoses Not on filedocumented in this encounter Additional Health Concerns Active Problems Noted Date Diagnosed Date OB Reminders 08/14/2024 documented as of this encounter Care Teams Echocardiograph Tech Relationship Specialty Start Date End Date Marlon Laguna MD [address] [facility] [place] [address] PCP - General Family Medicine 08/29/23 Saul Eugene DO [address] [place] [address] Referring Physician Obstetrics and Gynecology 08/16/24 documented as of this encounter
--- OUTSIDE RECORDS SUMMARY | 2024-12-28 13:57 | XMS_ITS | Clinical Summary ---
Author Organization [employer] tem Address [id number] [address] [place] [address] Care Team Providers Care Second Facing Baster Name Role Phone Belén Rooney MD Primary Care Provider [phone] Allergies No known active allergies Medications PIRMELLA [...] Encounters Date Type Department Care Team Description 12/27/2024 Travel 12/20/2024 2:54 PM EDT - 12/20/2024 11:59 PM EDT Hospital Encounter [facility] [address] [place] [phone] Intrauterine growth restriction affecting antepartum care of mother in second trimester, fetus 1 of multiple gestation; Intrauterine growth restriction affecting antepartum care of mother in second trimester, fetus 2 of multiple gestation; Monochorionic diamniotic twin gestation in second trimester Discharge Disposition: Home 12/18/2024 Travel 12/13/2024 3:15 PM EDT - 12/13/2024 11:59 PM EDT Hospital Encounter [facility] Imaging [address] [place] [address] Intrauterine growth restriction affecting antepartum care of mother in second trimester, fetus 1 of multiple gestation; Intrauterine growth restriction affecting antepartum care of mother in second trimester, fetus 2 of multiple gestation; Monochorionic diamniotic twin gestation in second trimester Discharge Disposition: Home 12/11/2024 Travel 12/08/2024 Orders Only Maternal- Medicine at [facility] [address] [place] [address] Geeta Jacobs, RN Intrauterine growth restriction affecting antepartum care of mother in second trimester, fetus 1 of multiple gestation (Primary Dx); Intrauterine growth restriction affecting antepartum care of mother in second trimester, fetus 2 of multiple gestation; Monochorionic diamniotic twin gestation in second trimester 12/07/2024 Telephone Maternal- Medicine at [facility] [address] [place] [address] Susan Beltran LPN 12/06/2024 9:45 AM EDT Office Visit Maternal- Medicine at [facility] [address] [place] [address] Blaise Woodall MD Intrauterine growth restriction affecting antepartum [...] - 12/06/2024 11:59 PM EDT Hospital Encounter [facility] Imaging [address] [place] [address] Vasa previa, fetus 1 of multiple gestation; Intrauterine growth restriction affecting antepartum care of mother in second trimester, fetus 1; Monochorionic diamniotic twin gestation in second trimester Discharge Disposition: Home 12/06/2024 Orders Only Maternal- Medicine at [facility] [address] [place] [address] Ref Prov, Not In System 12/04/2024 Travel 12/01/2024 Orders Only Maternal- Medicine at [facility] [address] [place] [address] Arleth Jefferson CMA Vasa previa, fetus 1 of multiple gestation (Primary Dx); Intrauterine growth restriction affecting antepartum care of mother in second trimester, fetus 1; Monochorionic diamniotic twin gestation in second trimester 11/29/2024 2:56 PM EDT - 11/29/2024 11:59 PM EDT Hospital Encounter [facility] Imaging [address] [place] [address] Monochorionic diamniotic twin , antepartum; IUGR (intrauterine growth restriction) affecting care of mother, second trimester, not applicable or unspecified fetus Discharge Disposition: Home 11/27/2024 Travel 11/23/2024 Orders Only Maternal- Medicine at [facility] [address] [place] [address] Susan Beltran LPN Monochorionic diamniotic twin gestation in second trimester; Intrauterine growth restriction affecting antepartum care of mother in second trimester, fetus 1; Velamentous insertion of umbilical cord in second trimester; Vasa previa, fetus 1 of multiple gestation; Palpitations 11/23/2024 Orders Only Maternal- Medicine at [facility] [address] [place] [address] Susan Beltran, CRAYON MOLDING MACHINE OPERATOR Monochorionic diamniotic twin gestation in second trimester (Primary Dx); Intrauterine growth restriction affecting antepartum care of mother in second trimester, fetus 1; Velamentous insertion of umbilical cord in second trimester; Vasa previa, fetus 1 of multiple gestation; Palpitations 11/23/2024 Telephone Maternal- Medicine at [facility] [address] [place] [address] Susan Beltran LPN 11/22/2024 7:59 AM EDT - 11/22/2024 11:59 PM EDT Hospital Encounter [facility] Imaging [address] [place] [address] Monochorionic diamniotic twin gestation in second trimester Discharge Disposition: Home 11/20/2024 Travel 11/17/2024 Telephone Maternal- Medicine at [facility] [address] [place] [address] Jefferson Nava MD 11/15/2024 2:30 PM EDT Office Visit Maternal- Medicine at [facility] [address] [place] [address] Jefferson Nava MD Monochorionic diamniotic twin gestation in second trimester (Primary Dx) 11/15/2024 12:47 PM EDT - 11/15/2024 11:59 PM EDT Hospital Encounter [facility] Imaging [address] [place] [address] Encounter for other screening follow-up; Monochorionic diamniotic twin gestation in second trimester Discharge Disposition: Home 11/13/2024 Travel 11/08/2024 9:42 AM EDT - 11/08/2024 11:59 PM EDT Hospital Encounter [facility] Imaging [address] [place] [address] Discharge Disposition: Home 11/08/[address] [facility] Women's Services [address] [place] [address] Services, [facility] Women's 11/07/2024 9:04 AM EDT - 11/07/2024 11:59 PM EDT Hospital Encounter [facility] Imaging [address] [place] [phone] Discharge Disposition: Home 11/07/2024 6:22 AM EDT - 11/08/2024 2:17 PM EDT Hospital Encounter [facility] - GEN 3 Antepartum [address] [place] [address] Farshad Negro MD Discharge Disposition: Home 11/07/2024 Travel 11/04/2024 Orders Only Maternal- Medicine at [facility] [address] [place] [address] Susan Beltran LPN Intrauterine growth restriction affecting antepartum care of mother in second trimester, fetus 1; Velamentous insertion of umbilical cord in second trimester; Monochorionic diamniotic twin gestation in second trimester; Vasa previa, fetus 1 of multiple gestation; Palpitations 11/04/2024 Orders Only Maternal- Medicine at [facility] [address] [place] [phone] Susan Beltran LPN Intrauterine growth restriction affecting antepartum care of mother in second trimester, fetus 1 (Primary Dx); Velamentous insertion of umbilical cord in second trimester; Monochorionic diamniotic twin gestation in second trimester; Vasa previa, fetus 1 of multiple gestation; Palpitations 11/04/2024 Telephone Maternal- Medicine at [facility] [address] [place] [address] Susan Beltran LPN 11/01/2024 12:49 PM EDT - 11/01/2024 11:59 PM EDT Hospital Encounter [facility] Imaging [address] [place] [address] Monochorionic diamniotic twin gestation in second trimester Discharge Disposition: Home 11/01/2024 Travel 10/30/2024 Travel 10/26/2024 11:30 AM EDT Office Visit Maternal- Medicine at [facility] [address] [place] [address] Blaise Woodall MD Intrauterine growth restriction affecting antepartum care of mother in second trimester, fetus 1 (Primary Dx); 20 weeks gestation of ; Velamentous insertion of umbilical cord in second trimester; Monochorionic diamniotic twin gestation in second trimester; Vasa previa, fetus 1 of multiple gestation 10/26/2024 9:00 AM EDT - 10/26/2024 11:59 PM EDT Hospital Encounter [facility] US Imaging [address] [place] [address] Palpitations; Monochorionic diamniotic twin gestation in second trimester Discharge Disposition: Home 10/24/2024 Travel 10/13/2024 Orders Only Maternal- Medicine at [facility] [address] [place] [address] Brooklyn Campos RN Monochorionic diamniotic twin gestation in second trimester (Primary Dx) 10/11/2024 3:29 PM EDT - 10/11/2024 11:59 PM EDT Hospital Encounter [facility] Imaging [address] [place] [address] Palpitations; Monochorionic diamniotic twin gestation in second trimester Discharge Disposition: Home 10/10/2024 Travel 10/04/2024 4:45 PM EDT - 10/04/2024 11:59 PM EDT Hospital Encounter [facility] - Cardiovascular [address] [place] [address] Palpitations Discharge Disposition: Home 10/04/2024 Travel 10/01/2024 Telephone Maternal- Medicine at [facility] [address] [place] [address] Susan Beltran LPN 10/01/2024 Telephone Maternal- Medicine at [facility] [address] [place] [address] Susan Beltran LPN 09/27/2024 10:30 AM EDT Office Visit Maternal- Medicine at [facility] [address] [place] [address] Alex Subramanian MD Simmonds, Lisa E, MD Monochorionic diamniotic twin gestation in second trimester (Primary Dx) 09/27/2024 9:01 AM EDT - 09/27/2024 11:59 PM EDT Hospital Encounter [facility] Imaging [address] [place] [address] Screening, , for anatomic survey Discharge Disposition: Home 09/27/2024 Orders Only Maternal- Medicine at [facility] [address] [place] [address] Susan Beltran LPN Palpitations (Primary Dx); Monochorionic diamniotic twin gestation in second trimester 09/27/2024 Orders Only Maternal- Medicine at [facility] [address] [place] [address] Susan Beltran LPN Palpitations (Primary Dx) from Last 3 Months Family History Medical [...] 0.6 oz pur e alcohol) [facility] Utilities Answer Date Recorded In the [...] Info) Description 12/29/2024 11:00 AM EDT Appointment [facility] Imaging [address] [place] [address] 12/29/2024 1:00 PM EDT Office Visit Maternal- Medicine at [facility] [address] [place] [address] Alex Subramanian MD [address], [address] [place] [address] 01/10/2025 8:30 AM EDT Office Visit Maternal- Medicine at [facility] [address] [place] [address] Jefferson Nava MD [address] [place], [address] [place] [address] Health Maintenance Due Date Last Done Comments [...] fetus 1 of multiple gestation Palpitations US [facility] LMTD OB, 1 OR MORE FETUS Routine 10/11/2024 4:49 PM EDT Palpitations Monochorionic diamniotic twin gestation in second trimester ECG 12-LEAD Routine 10/04/2024 5:06 PM EDT Palpitations US [facility] BASIC OB >/=14 WEEKS, 1 FETUS Routine 09/27/2024 10:59 AM EDT Screening, , for anatomic survey from Last 3 Months Results * US [facility] LMTD OB, 1 OR MORE FETUS (12/20/2024 3:58 PM EDT) Only the most recent of12 resultswithin the time period is included. Anatomical Region Laterality Modality OB-SWITCHING OPERATOR Ultrasound 12/20/2024 3:17 PM EDT Narrative 12/20/2024 4:11 PM EDT NAME: ALIVIA HARTMAN MANOJ : 1995 SEX: F Accession Number: [id number] ORDERING PHYSICIAN: BLAISE WOODALL REFERRING PHYSICIAN: VIC MCKEON Coding ----- --------- Procedures 31396: Limited OB / NATHAN, 1 or More Fetuses 36288: Doppler velocimetry, ; umbilical artery. 2 01189: Doppler velocimetry, ; middle cerebral artery. 2 71354: Doppler Ductus Venosus. 2 Indication ----- --------- Augusta-Di twin , IUGR-Poor growth-twin A & B, Pre term contractions, Supervision of high risk History ----- --------- OB History 1. Para 0 [id number] Maternal Assessment ----- --------- Physical Exam Height [...] -11.88 cm/s S / D 3.98 88% Ikran Mid Cerebral Artery: normal PI 1.72 12% [...] primary OB provider unless otherwise specified by [facility]. Results forwarded to ordering provider so they can follow up with the patient as necessary. Procedure Note Jefferson Nava MD - 12/20/2024 NAME: ALIVIA HARTMAN : 1995 SEX: F Accession Number: [id number] ORDERING PHYSICIAN: BLAISE WOODALL REFERRING PHYSICIAN: VIC MCKEON Coding ----- --------- Procedures 40340: Limited OB / NATHAN, 1 or More Fetuses 65099: Doppler velocimetry, ; umbilical artery. 2 42503: Doppler velocimetry, ; middle cerebral artery. 2 43521: Doppler Ductus Venosus. 2 Indication ----- --------- Augusta-Di twin , IUGR-Poor growth-twin A & B, Pre termcontractions, Supervision of high risk History ----- --------- OB History 1. Para 0 [id number] Maternal Assessment ----- --------- Physical Exam Height [...] byprimary OB provider unless otherwise specified by [facility]. Results forwarded to ordering provider so they can follow up with thepatient as necessary. us Blaise Woodall MD [facility] ORDERABLES Final Result * Free Cell DNA (Non-[facility] Send Out) (11/13/2024 11:51 AM EDT) us Not In System Ref Prov LAB BLOOD ORDERABLES Inga l Result MANUALLY TRANSCRIBED RESULTS * Unlisted Lab Test (11/12/2024) Only the most recent of2 resultswithin the time period is included. Free Cell Dna LOW RISK MANUALLY TRANSCRIBED RESULTS Blood (Arm) 11/12/2024 us Blaise Woodall MD LAB BLOOD ORDERABLES Final Resul t MANUALLY TRANSCRIBED RESULTS * ABO Rh Repeat (11/07/2024 12:05 PM EDT) Only the most recent of2 resultswithin the time period is included. 11/07/2024 12:0 5 PM EDT us Melody Estes MD BLOOD BANK TEST ORDERABLES F inal Result [facility] * SST TOP (11/07/2024 10:18 AM EDT) Extra Tube Auto Resulted 11/07/2024 12:01 PM EDT [facility] Blood Venous blood / Unknown 11/07/2024 10:18 AM EDT 11/07/2024 10:18 AM EDT us Farshad Negro MD LAB BLOOD ORDERABLES Final Res ult Performing Organization Address City/[facility]/ZIP Co de Phone Number [facility] [address] [place] [address], [place] [phone] * (ABNORMAL) CBC auto differential (11/07/2024 10:03 AM EDT) WBC 9.6 4 - 11 x10E9/L 11/07/2024 10:34 AM EDT [facility] RBC Count 3.85 3.8 - 5.2 X10E12/L 11/07/2024 10:34 AM EDT [facility] Hemoglobin 11.3(L) 11.7 - 15.5 g/dL 11/07/2024 10:34 AM EDT [facility] Hematocrit 33.3(L) 35 - 47 % 11/07/2024 10:34 AM EDT [facility] MCV 86 80 - 100 fL 11/07/2024 10:34 AM EDT [facility] MCH 29.2 27 - 34 pg [facility] MCHC 33.9 32 - 36 g/dL 11/07/2024 10:34 AM EDT [facility] RDW 13.8 11.5 - 15 % 11/07/2024 10:34 AM EDT [facility] Platelet Count 253 150 - 450 X10E9/L 11/07/2024 10:34 AM EDT [facility] MPV 7.4 7 - 12 fL 11/07[facility]24 [facility] Neutrophils % 84.5 % 11/07[facility]24 [facility] Lymphocytes % 9.8 % 11/07/2024 10:34 AM EDT [facility] Monocytes % 5.5 % 11/07[facility]2024 [facility] Eosinophils % 0.1 % 11/07/2024 10:34 AM EDT [facility] Basophils % 0.1 % 11/07/2024 10:34 AM [facility] Neutrophils Absolute (A) 8.1(H) 1.5 - 6.6 10*3/uL 11/07/2024 10:34 AM EDT [facility] Lymphocytes Absolute 0.9(L) 1.0 - 3.5 10*3/uL 11/07/2024 10:34 AM EDT [facility] Monocytes Absolute 0.5 0.0 - 0.9 10*3/uL 11/07/2024 10:34 AM EDT [facility] Eosinophils Absolute 0.0 0.0 - 0.4 10*3/uL 11/07/2024 10:34 AM EDT [facility] Basophils Absolute 0.0 0.0 - 0.2 10*3/uL 11/07/2024 10:34 AM EDT [facility] Differential Type AUTOMATED DIFFERENTIAL 11/07/2024 10:34 AM EDT [facility] Blood Venous blood / Unknown Venipuncture / Unknown 11/07/2024 10:03 AM EDT 11/07/2024 10:03 AM EDT us Melody Estes MD LAB BLOOD ORDERABLES Final R esult [facility] [address] [place] [address], * Type and screen(includes indirect pedro) (11/07/2024 10:03 AM EDT) Pathologist [facility] ABO A 11/07/2024 10:48 AM EDT [facility] RH Positive 11/07/2024 10:48 AM EDT [facility] Antibody Screen Negative 11/07/2024 10:48 AM EDT [facility] Blood Venous blood / Unknown Venipuncture / Unknown 11/07/2024 10:03 AM EDT 11/07/2024 10:03 AM EDT us Melody Estes MD BLOOD BANK TEST ORDERABLES E dited Result - Final [facility] - [facility] [address] [place] [address], [facility] [address] [place] [address], * Chlamydia/GC by PCR Claritza Swab (11/07/2024 8:50 AM EDT) Pathologist [facility] CHLAMYDIA DNA(PCR) Negative Negative 11/08/2024 11:15 AM EDT [facility] Comment:Chlamydia trachomati s not detected by nucleic acid amplification. This does not exclude the possibility of infection because results are dependent on adequate specimen collection. GONORRHOEAE DNA(PCR) Negative Negative 11/08/2024 11:15 AM EDT [facility] Comment:Neisseria gonorrhoea e not detected by nucleic acid amplification. This does not exclude the possibility of infection because results are dependent on adequate specimen collection. Swab Vaginal structure / Unknown 11/07/2024 8:50 AM EDT 11/07/2024 9:12 AM EDT Lisa Lopez BULK GAS SPECIALIST-CNM MICROBIOLOGY - GENE RAL ORDERABLES Final Result [facility] [address] [place] [address], * Vaginitis Panel PCR (11/07/2024 8:50 AM EDT) BACT. VAGINOSIS DNA Not Detected Not Detected 11/07/2024 3:09 PM EDT [facility] Comment:Qualitative results are reported based on detection and quantitation of targeted organism markers which include: Lactobacillus spp. (L. crispatus and L. jensenii), Gardnerella vaginalis, Atopobium vaginae, Bacterial Vaginosis Associated Bacteria-2 (BVAB-2) and Megasphaera-1. KENYA SPECIES DNA Not Detected Not Detected 11/07/2024 3:09 PM EDT [facility] Comment:[place] species not detected include: C. albicans, C. tropicalis, C. parapsilosis or C. dubliniensis. KENYA KRUSEI DNA Not Detected Not Detected 11/07/2024 3:09 PM EDT [facility] Comment:No [place] krusei de tected. KENYA GLABRATA DNA Not Detected Not Detected 11/07/2024 3:09 PM EDT [facility] Comment:No [place] glabrata detected. TRICHOMONAS VAG DNA Not Detected Not Detected 11/07/2024 3:09 PM EDT [facility] Comment: No Trichomonas vaginalis detected. BD MAX Vaginal Panel has not been evaluated for patients under 18 years old. Results for these patients should be reviewed and assessed in accordance with clinical presentation to determine patient diagnosis. Swab Vaginal structure / Unknown 11/07/2024 8:50 AM EDT 11/07/2024 9:12 AM EDT Lisa Lopez BULK GAS SPECIALIST-DORIS MICROBIOLOGY - GENE RAL ORDERABLES Final Result Performing Organization Address City/[facility]/ZIP Co de Phone Number [facility] [address] [place] [address], [place] [phone] * Strep B screen (11/07/2024 8:50 AM EDT) CULTURE RESULTS NEGATIVE FOR GROUP B STREPTOCOCCUS BY NUCLEIC ACID AMPLIFICATION 11/08/2024 3:27 PM EDT [facility] Swab (Vagina/Rectum) 11/07/2024 8:50 AM EDT 11/07/2024 9:12 AM EDT Lisa Lopez APRN-CLARE MICROBIOLOGY - GENE RAL ORDERABLES Final Result Performing Organization Address [facility] de Phone Number [facility] [address] [place] [address], [place] [phone] * Er Extra Urine (11/07/2024 7:39 AM EDT) Extra Tube Auto Resulted 11/07/2024 9:01 AM EDT [facility] Urine Urine specimen collection, clean catch / Unknown 11/07/2024 7:39 AM EDT 11/07/2024 7:51 AM EDT Farshad Negro MD URINE ORDERABLES Final Result Performing Organization Address [facility]/ZIP Co de Phone Number [facility] [address] [place] [address], [place] [phone] * (ABNORMAL) Urinalysis (11/07/2024 7:39 AM EDT) COLOR Colorless Yellow, Colorless 11/07/2024 8:04 AM EDT [facility] TURBIDITY Hazy(A) Clear 11/07/2024 8:04 AM EDT [facility] SPECIFIC GRAVITY 1.003 1.003 - 1.035 11/07/2024 8:04 AM EDT [facility] NITRITE Negative Negative 11/07/2024 8:04 AM EDT [facility] PH,URINE 6.5 5.0 - 8.5 11/07/2024 8:04 AM EDT [facility] LEUKOCYTE ESTERASE Small(A) Negative 11/07/2024 8:04 AM EDT [facility] PROTEIN Negative Negative 11/07/2024 8:04 AM EDT [facility] KETONES (URINE) Negative Negative 8:04 AM EDT [facility] UROBILINOGEN <1.1 eu/dL <1.1 eu/dL 11/07/2024 8:04 AM EDT [facility] BILIRUBIN (URINE) Negative Negative 11/07/2024 8:04 AM EDT [facility] BLOOD/HGB Negative Negative 11/07/2024 8:04 AM EDT [facility] MUCOUS Present(A) None 11/07/2024 8:04 AM EDT [facility] R.B.CELLS 3 0 - 5 11/07/2024 8:04 AM EDT [facility] SQUAMOUS EPITHELIUM 9(H) 0 - 5 11/07/2024 8:04 AM EDT [facility] W.B.CELLS 9(H) 0 - 5 11/07/2024 8:04 AM EDT [facility] GLUCOSE (URINE) Negative Negative 8:04 AM EDT [facility] [facility] Urine 11/07/2024 7:39 AM EDT 11/07/2024 7:50 AM EDT us Lisa Lopez BULK GAS SPECIALIST-CNM URINE ORDERABLES Fi nal Result [facility] [address] [place] [address], [place] [phone] * Urine Culture Urine, Clean Catch Midstream (11/07/2024 7:39 AM EDT) CULTURE RESULTS NO GROWTH AT <1000 CFU/mL 11/08/2024 8:24 AM EDT [facility] Urine Urine specimen collection, clean catch / Unknown 11/07/2024 7:39 AM EDT 11/07/2024 7:50 AM EDT Lisa Lopez APRN-[facility] MICROBIOLOGY - GENE RAL ORDERABLES Final Result Performing Organization Address City/[facility]/ZIP Co de Phone Number [facility] [address] [place] [address], * CMV IgM (10/26/2024 12:37 PM EDT) CYTOMEGALOVIRUS IGM 0.2 <0.9 AI 10/26 2:54 PM EDT [facility] Blood Venous blood / Unknown Venipuncture / Unknown 10/26/2024 12:37 PM EDT 10/26/2024 12:37 PM EDT Narrative [facility] - 10/26/2024 2:54 PM EDT Intepretation < 0.9 Negative 0.9 - 1.0 Equivocal > 1.0 Positive The following results were obtained with the [facility] [address] IgM test. Results obtained from other Partition [employer]er's assay methods may not be used interchangeably. Blaise Woodall MD LAB BLOOD ORDERABLES Final Resul t [facility] [address] [place] [address], * (ABNORMAL) Cytomegalovirus antibody, IgG (10/26/2024 12:37 PM EDT) CYTOMEGALOVIRUS IGG >8.0(H) <0.9 AI 10/26 2:54 PM EDT [facility] Blood Venous blood / Unknown Venipuncture / Unknown 10/26/2024 12:37 PM EDT 10/26/2024 12:37 PM EDT Narrative [facility] - 10/26/2024 2:54 PM EDT Intepretation < 0.9 Negative 0.9 - 1.0 Equivocal > 1.0 Positive Blaise Woodall MD LAB BLOOD ORDERABLES Final Resul t [facility] [address] [place] [address], * ECG 12 lead (10/04/2024 5:06 PM EDT) 10/04/2024 5:06 PM EDT Narrative [facility] - 10/06/2024 11:23 AM EDT Mya Dumont MD ECG ORDERABLES Final Result Performing Organization Address City/State/[facility] Co de Phone Number [facility] from Last 3 Months Insurance [employer] Advance Directives * Full Code (Latest Code Status on File) Date Activated Date Inactivated Comments 11/07/2024 9:33 AM 11/08/2024 4:22 PM Care Teams Second Facing Baster Relationship Specialty Start Date End Date Belén Rooney MD [address] [place] [phone] PCP - General Family Medicine 09/29/18
--- OUTSIDE RECORDS SUMMARY | 2024-12-28 13:57 | XMS_ITS | Encounter Summary ---
Author Organization [facility] Address [address] [place] [address] Care Team Providers Care Expeller Worker Name Role Phone Marlon Laguna MD Primary Care Provider [phone] Saul Eugene DO Unavailable Encounter Details Date Type Department Care Team (Late st Contact Info) Description 12/14/2024 Abstract [facility] [address] [place] [phone] Saul Eugene DO [address] [place], [facility]11 Social History Tobacco Use Types Packs/Day Years [...] [facility] [address] [place] [address] Saul Eugene DO [address] [place] [address] 03/28/2025 2:00 PM EST Office Visit [facility] [place] [facility] [address] [facility] [place] [address] Saul Eugene DO [address] [facility] [place] [address] documented as of this encounter Goals Goal Patient Goal Type Associated Problems Recent Progress Patient-Stated? Author Reminders Care Plan OB Reminders No Open Scheduling, Background documented as of this encounter Visit Diagnoses Not on filedocumented in this encounter Additional Health Concerns Active Problems Noted Date Diagnosed Date OB Reminders 08/14/2024 documented as of this encounter Care Teams Expeller Worker Relationship Specialty Start Date End Date Marlon Laguna MD [address] [facility] [place] [address] PCP - General Family Medicine 08/29/23 Saul Eugene DO [address] [place] [address] Referring Physician Obstetrics and Gynecology 08/16/24 documented as of this encounter
--- OUTSIDE RECORDS SUMMARY | 2024-12-28 13:57 | XMS_ITS | Encounter Summary ---
Author Organization [facility] Address [address] [place] [address] Care Team Providers Care Accounting Manager Cpa Name Role Phone Marlon Laguna MD Primary Care Provider [phone] Saul Eugene DO Unavailable Encounter Details Date Type Department Care Team (Late st Contact Info) Description 10/12/2024 Abstract [facility] [address] [place] [phone] Saul Eugene DO [address] [place], [facility]11 Social History Tobacco Use Types [...] [facility] [address] [place] [address] Saul Eugene DO [address] [place] [address] 03/28/2025 2:00 PM EST Office Visit [facility] [place] [facility] [address] [facility] [place] [address] Saul Eugene DO [address] [facility] [address] documented as of this encounter Goals Goal Patient Goal Type Associated Problems Recent Progress Patient-Stated? Author Reminders Care Plan OB Reminders No Open Scheduling, Background documented as of this encounter Visit Diagnoses Not on filedocumented in this encounter Additional Health Concerns Active Problems Noted Date Diagnosed Date OB Reminders 08/14/2024 documented as of this encounter Care Teams Accounting Manager Cpa Relationship Specialty Start Date End Date Marlon Laguna MD [address] [facility] [place] [address] PCP - General Family Medicine 08/29/23 Saul Eugene DO [address] [place] [address] Referring Physician Obstetrics and Gynecology 08/16/24 documented as of this encounter
--- OUTSIDE RECORDS SUMMARY | 2024-12-28 13:57 | XMS_ITS | Patient Health Record ---
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 Stress is when someone feels tense, nervous, anxious, or can't sleep at night because their mind is troubled A little bit patient entered data In the past year have you sp ent more than 2 nights in a row in a fci, group home, penitentiary center, or juvenile correctional facility? No patient [...] Vital Signs Heart Rate 77 /min 11/19/2024 Height-cm 157.48 cm 11/19/2024 Blood pressure diastolic 63 mm Hg 11/19/2024 Weight-kg 66.23 kg 11/19/2024 Height 62 in 11/19/2024 Blood pressure systolic 101 mm Hg 11/19/2024 Weight 146 lbs 11/19/2024 BMI 26.7 kg/m2 11/19/2024 Encounters Encounter Location Date Provider Diagnosis [facility] [place], [place] [phone] 02/23/2024 Heaven French-Hudley Necrosis of pulp K 04.1 and Encounter for dental examination and cleaning without abnormal findings Z01.20 Dental Main [address] [place], [place] [id number] 11/19/2024 Yuliet Lozano Dental caries into dentine [...] Name:Deshawn Moon , 06/10/2025 09:45:00 AM, [address] [place], [place], [id number], Insurance Providers Payer Name Payer Address Payer Phone Subscriber Number Group Number Insured Name Patient Relationship to Insured Coverage Start Date Coverage End Date [facility] [facility] [address] [place], [place] [id number] Sukhwinder Pedro Spouse - patient is the spouse of the insured
--- OUTSIDE RECORDS SUMMARY | 2024-12-28 13:57 | XMS_ITS | Encounter Summary ---
Author Organization [facility] Address [address] [place] [address] Care Team Providers Care Cow Tender Name Role Phone Marlon Laguna MD Primary Care Provider [phone] Saul Eugene DO Unavailable Encounter Details Date Type Department Care Team (Late st Contact Info) Description 12/14/2024 Bamboo flowsheet [facility] [address] [facility] [place] [address] Saul Eugene DO [address] [place], [facility]11 Social History Tobacco Use Types [...] AM EDT Routine [facility] [place] [facility] [address] [facility] [place] [phone] Saul Eugene DO [address] [facility] [place] [address] 03/28/2025 2:00 PM EST Office Visit [facility] [place] [facility] [address] [facility] [place] [address] Saul Eugene DO [address] [facility] [place] [address] documented as of this encounter Goals Goal Patient Goal Type Associated Problems Recent Progress Patient-Stated? Author Reminders Care Plan OB Reminders No Open Scheduling, Background documented as of this encounter Visit Diagnoses Not on filedocumented in this encounter Additional Health Concerns Active Problems Noted Date Diagnosed Date OB Reminders 08/14/2024 documented as of this encounter Care Teams Cow Tender Relationship Specialty Start Date End Date Marlon Laguna MD [address] [facility] [place] [address] PCP - General Family Medicine 08/29/23 Saul Eugene DO [address] [facility] [place] [address] Referring Physician Obstetrics and Gynecology 08/16/24 documented as of this encounter
--- OUTSIDE RECORDS SUMMARY | 2024-12-28 13:57 | XMS_ITS | Encounter Summary ---
Author Organization [facility] Address [address] [place] [address] Care Team Providers Care Call Center Professional Name Role Phone Marlon Laguna MD Primary Care Provider [phone] Vic Eugene DO Unavailable Encounter Details Date Type Department Care Team (Late st Contact Info) Description 12/21/2024 Clinisync Result Encounter [facility] External Department Unsolicited Vic Eugene, [address] [place], [place] [phone] Social History Tobacco Use Types Packs/Day Years [...] AM EDT Routine [facility] [place] [facility] [address] [place] [address] Vic Eugene, DO [address] [facility] [place] [address] 03/28/2025 2:00 PM EST Office Visit [facility] [place] [facility] [address] [facility] [place] [phone] Vic Eugene, DO [address] [facility] [place] [address] documented as of this encounter Goals Goal [...] EDT Narrative 12/21/2024 3:02 PM EDT The [address] [address] Ultrasound Report Signed Patient: MINNIE BUNCH MR#: [id number] : 1995 Acct:[id number] Age/Sex: 29 / F ADM Date: 12/21/24 Loc: US Attending Dr: Vic Eugene D.O. Ordering Physician: Vic Eugene D.O. Date of Service: 12/21/24 Procedure(s): US OB BPP w non-stress Accession Number(s): [id number] cc: Vic Eugene D.O.; Marlon Laguna M.D. The [address] [address] Patient Name: MINNIE BUNCH MRN: [id number] date: 1995 Sex: F Assigned Patient Location: US Current Patient Location: Accession/Order Number: [id number] Exam Date: 12/21/2024 14:56 Report Date: 12/21/2024 15:00 At the request of: VIC EUGENE DO Procedure: US OB BPP w non-stress Biophysical profile. Reason for exam: No chorionic diamniotic twin gestation. COMPARISON: None TECHNIQUE: Transabdominal imaging of the gravid uterus was obtained. FINDINGS: The electric motor and generator assembler reports a fetus A BPP of 6 out of 8 with 0 points for breathing.. MVP is 6.3 cm. heart rate 135 bpm. The electric motor and generator assembler reports fetus B BPP of 8 out of 8. MVP is 3.7 cm. heart rate 139 bpm. US/US OB BPP w non-stress IMPRESSION: BPP 6out of 8 for Fetus A. Correlation with NST is recommended. BPP 8 out of 8 for fetus B. Impression dictated by: Barrington Spears Jr., D.O. 12/21/2024 3:00 PM Dictation Location: [place] [address] Electronically authenticated by: [id number] Y Date: 12/21/2024 15:00 Dictated By: Barrington Spears M.D. Signed By: 12/21/24 1502 DD/ 1500 TD/TT: Turn Machine Operator: Procedure Note Radiology, Radiologist, MD - 12/21/2024 [place] [address] Ultrasound Report Signed Patient: MINNIE BUNCH [facility]#: [id number] : 1995Acct:[id number] Age/Sex: Date: 12/21/24 Loc: US Attending Dr: Vic Eugene D.O. Ordering Physician: Vic Eugene D.O. Date of Service: 12/21/24 Procedure(s): US OB BPP w non-stress Accession Number(s): [id number] cc: Vic Eugene D.O.; Marlon Laguna M.D. The [place] [id number] Patient Name: MINNIE BUNCH MRN: [id number] date: 1995 Sex: F Assigned Patient Location: Current Patient Location: Accession/Order Number: [id number] Exam Date: 12/21/2024 14:56 Report Date: 12/21/2024 15:00 At the request of: VIC EUGENE DO Procedure: US OB BPP w non-stress Biophysical profile. Reason for exam: No chorionic diamniotic twin gestation. COMPARISON: None TECHNIQUE: Transabdominal imaging of the gravid uterus was obtained. FINDINGS: The electric motor and generator assembler reports a fetus A BPP of 6 out of 8 with 0points for breathing.. MVP is 6.3 cm. heart rate 135 bpm. The electric motor and generator assembler reports fetus B BPP of 8 out of 8. MVP is 3.7 cm. heart rate 139 bpm. US/US OB BPP w non-stress IMPRESSION: BPP 6out of 8 for Fetus A. Correlation with NST is recommended. BPP 8 out of 8 for fetus B. Impression dictated by: Barrington Spears Jr., D.O. 12/21/2024 3:00 PM Dictation Location: [place] [address] Electronically authenticated by: [id number] Y Date: 5:00 Dictated By: Barrington Spears M.D. Signed By:12/21/24 1502 DD/ 1500 TD/TT: Turn Machine Operator: Vic Eugene DO [facility] Final Result documented in this encounter Visit Diagnoses Not on filedocumented in this encounter Additional Health Concerns Active Problems Noted Date Diagnosed Date OB Reminders 08/14/2024 documented as of this encounter Care Teams Call Center Professional Relationship Specialty Start Date End Date Marlon Laguna MD [address] [facility] [place] [address] PCP - General Family Medicine 08/29/23 Vic Eugene DO [address] [place] [address] [place] [address] Referring Physician Obstetrics and Gynecology 08/16/24 documented as of this encounter
--- OUTSIDE RECORDS SUMMARY | 2024-12-28 13:57 | XMS_ITS | Encounter Summary ---
Author Organization [facility] Address [address] [place] [address] Care Team Providers Care Customer Servicer Name Role Phone Marlon Laguna MD Primary Care Provider [phone] Vic Eugene DO Unavailable Encounter Details Date Type Department Care Team (Late st Contact Info) Description 12/21/2024 Clinisync Result Encounter [facility] External Department Unsolicited Vic Eugene, [address] [place], [place] [phone] Social History Tobacco Use Types Packs/Day Years [...] AM EDT Routine [facility] [place] [facility] [address] [place] [address] Vic Euegne, DO [address] [facility] [place] [address] 03/28/2025 2:00 PM EST Office Visit [facility] [place] [facility] [address] [place] [phone] Vic Eugene, DO [address] [facility] [place] [address] documented as of this encounter Goals Goal [...] EDT Narrative 12/21/2024 3:02 PM EDT The [address] [address] Ultrasound Report Signed Patient: MINNIE BUNCH MR#: [id number] : 1995 Acct:[id number] Age/Sex: 29 / F ADM Date: 12/21/24 Loc: US Attending Dr: Vic Eugene D.O. Ordering Physician: Vic Eugene D.O. Date of Service: 12/21/24 Procedure(s): US OB BPP w non-stress Accession Number(s): [id number] cc: Vic Eugene D.O.; Marlon Laguna M.D. The [address] [address] Patient Name: MINNIE BUNCH MRN: [id number] date: 1995 Sex: F Assigned Patient Location: US Current Patient Location: Accession/Order Number: [id number] Exam Date: 12/21/2024 14:56 Report Date: 12/21/2024 15:00 At the request of: VIC EUGENE DO Procedure: US OB BPP w non-stress Biophysical profile. Reason for exam: No chorionic diamniotic twin gestation. COMPARISON: None TECHNIQUE: Transabdominal imaging of the gravid uterus was obtained. FINDINGS: The fuel cell designer reports a fetus A BPP of 6 out of 8 with 0 points for breathing.. MVP is 6.3 cm. heart rate 135 bpm. The fuel cell designer reports fetus B BPP of 8 out of 8. MVP is 3.7 cm. heart rate 139 bpm. US/US OB BPP w non-stress IMPRESSION: BPP 6out of 8 for Fetus A. Correlation with NST is recommended. BPP 8 out of 8 for fetus B. Impression dictated by: Barrington Spears Jr., D.O. 12/21/2024 3:00 PM Dictation Location: [place] [address] Electronically authenticated by: [id number] Y Date: 12/21/2024 15:00 Dictated By: Barrington Spears M.D. Signed By: 12/21/24 1502 DD/ 1500 TD/TT: Nursing Administrator: Procedure Note Radiology, Radiologist, MD - 12/21/2024 [place] [address] Ultrasound Report Signed Patient: MINNIE BNUCH [facility]#: [id number] : 1995Acct:[id number] Age/Sex: Date: 12/21/24 Loc: US Attending Dr: Vic Eugene D.O. Ordering Physician: Vic Eugene D.O. Date of Service: 12/21/24 Procedure(s): US OB BPP w non-stress Accession Number(s): [id number] cc: Vic Eugene D.O.; Marlon Laguna M.D. The [place] [id number] Patient Name: MINNIE BUNCH MRN: [id number] date: 1995 Sex: F Assigned Patient Location: Current Patient Location: Accession/Order Number: [id number] Exam Date: 12/21/2024 14:56 Report Date: 12/21/2024 15:00 At the request of: VIC EUGENE DO Procedure: US OB BPP w non-stress Biophysical profile. Reason for exam: No chorionic diamniotic twin gestation. COMPARISON: None TECHNIQUE: Transabdominal imaging of the gravid uterus was obtained. FINDINGS: The fuel cell designer reports a fetus A BPP of 6 out of 8 with 0points for breathing.. MVP is 6.3 cm. heart rate 135 bpm. The fuel cell designer reports fetus B BPP of 8 out of 8. MVP is 3.7 cm. heart rate 139 bpm. US/US OB BPP w non-stress IMPRESSION: BPP 6out of 8 for Fetus A. Correlation with NST is recommended. BPP 8 out of 8 for fetus B. Impression dictated by: Barrington Spears Jr., D.O. 12/21/2024 3:00 PM Dictation Location: [place] [address] Electronically authenticated by: [id number] Y Date: 5:00 Dictated By: Barrington Spears M.D. Signed By:12/21/24 1502 DD/ 1500 TD/TT: Nursing Administrator: Vic Eugene DO [facility] Final Result documented in this encounter Visit Diagnoses Not on filedocumented in this encounter Additional Health Concerns Active Problems Noted Date Diagnosed Date OB Reminders 08/14/2024 documented as of this encounter Care Teams Customer Servicer Relationship Specialty Start Date End Date Marlon Laguna MD [address] [facility] [place] [address] PCP - General Family Medicine 08/29/23 Vic Eugene DO [address] [place] [address] [place] [address] Referring Physician Obstetrics and Gynecology 08/16/24 documented as of this encounter
--- OUTSIDE RECORDS SUMMARY | 2024-12-28 13:57 | XMS_ITS | Encounter Summary ---
Author Organization [facility] Address [address] [place] [address] Care Team Providers Care Line Up Machine Operator Name Role Phone Marlon Laguna MD Primary Care Provider [phone] Saul Eugene DO Unavailable Encounter Details Date Type Department Care Team (Late st Contact Info) Description 09/12/2023 Clinisync Result Encounter [facility] External Department Unsolicited Saul Eugene DO [address] [place], [place] [phone] Social History Tobacco Use Types Packs/Day Years [...] AM EDT Routine [facility] [place] [facility] [address] [facility] [place] [phone] Saul Eugene DO [address] [place] [address] 03/28/2025 2:00 PM EST Office Visit [facility] [place] [facility] [address] [facility] [place] [phone] Saul Eugene DO [address] [facility] [place] [address] documented as of this encounter Procedures Procedure Name Priority Date/Time Associated Diagnosis Comments US BREAST LT LIMITED 09/12/2023 2:31 PM EDT documented in this encounter Results * US BREAST LT LIMITED (09/12/2023 2:31 PM EDT) Anatomical Region Laterality Modality Other 09/12/2023 2:31 PM EDT Narrative 09/12/2023 2:32 PM EDT [address] [address] Ultrasound Report Signed Patient: MINNIE SWIFT MR#: [id number] : 1995 Acct:[id number] Age/Sex: 28 / F ADM Date: 09/10/23 Loc: US Attending Dr: Saul Eugene D.O. Ordering Physician: Saul Eugene D.O. Date of Service: 09/10/23 Procedure(s): US breast LT limited Accession Number(s): [id number] cc: Saul Eugene D.O.; Marlon Laguna M.D. Patient Name: MINNIE SWIFT MR#: [id number] : 1995 Exam Date: 09/10/2023 Ordering Doctor: [...] Signed By: 09/12/23 1432 DD/ 1431 TD/TT: Licensing Representative: Procedure Note Radiology, Radiologist, MD - 09/12/2023 [place] [address] Ultrasound Report Signed Patient: MINNIE SWIFT [facility]#: [id number] : 1995Acct:[id number] Age/Sex: Date: 09/10/23 Loc: US Attending Dr: Saul Eugene D.O. Ordering Physician: Saul Eugene D.O. Date of Service: 09/10/23 Procedure(s): US breast LT limited Accession Number(s): [id number] cc: Saul Eugene D.O.; Marlon Laguna M.D. Patient Name: MINNIE SWIFT MR#: [id number] : 1995 Exam Date: 09/10/2023 Ordering Doctor: [...] M.D. Signed By:09/12/23 1432 DD/ 1431 TD/TT: Licensing Representative: Saul Eugene DO [facility] Final Result documented in this encounter Visit Diagnoses Not on filedocumented in this encounter Care Teams Line Up Machine Operator Relationship Specialty Start Date End Date Marlon Laguna MD [address] [place] [address] PCP - General Family Medicine 08/29/23 Saul Eugene DO [address] [place] [address] [place] [address] Referring Physician Obstetrics and Gynecology 08/16/24 documented as of this encounter
--- OUTSIDE RECORDS SUMMARY | 2024-12-28 13:57 | XMS_ITS | Encounter Summary ---
Author Organization [facility] Address [address] [place] [address] Care Team Providers Care Physical Therapy Technician Name Role Phone Marlon Laguna MD Primary Care Provider [phone] Saul Eugene DO Unavailable Encounter Details Date Type Department Care Team (Late st Contact Info) Description 10/27/2024 Abstract [facility] [address] [place] [phone] Saul Eugene DO [address] [place], [facility]11 Social History Tobacco Use Types [...] Description 12/30/2024 11:30 AM EDT Routine [facility] [address] [place] [address] Saul Eugene DO [address] [place] [address] 03/28/2025 2:00 PM EST Office Visit [facility] [place] [facility] [address] [facility] [place] [address] Saul Eugene DO [address] [facility] [place] [address] documented as of this encounter Goals Goal Patient Goal Type Associated Problems Recent Progress Patient-Stated? Author Reminders Care Plan OB Reminders No Open Scheduling, Background documented as of this encounter Visit Diagnoses Not on filedocumented in this encounter Additional Health Concerns Active Problems Noted Date Diagnosed Date OB Reminders 08/14/2024 documented as of this encounter Care Teams Physical Therapy Technician Relationship Specialty Start Date End Date Marlon Laguna MD [address] [facility] [place] [address] PCP - General Family Medicine 08/29/23 Saul Eugene DO [address] [place] [address] Referring Physician Obstetrics and Gynecology 08/16/24 documented as of this encounter
--- OUTSIDE RECORDS SUMMARY | 2024-12-28 13:57 | XMS_ITS | Clinical Summary ---
Author Organization [facility] Address [address] [place] [address] Care Team Providers Care Customer Service Clerk Name Role Phone Marlon Laguna MD Primary Care Provider [phone] Vic Eugene DO Unavailable Allergies No known [...] mg by mouth in the morning. Active Alcohol Swabs (Alcohol Prep Pad) 70 % padsIndications:G estational diabetes mellitus (GDM), antepartum, gestational diabetes method of control unspecified (HHS-HCC),Elevate d glucose tolerance test Apply 1 Pad topically Daily Use four times daily to check FSBS. 150 each 3 5 Active Blood Glucose Monitoring Suppl (D-Care Glucometer) w/Device kitIndications:Ge stational diabetes mellitus (GDM), antepartum, gestational diabetes method of control unspecified (HHS-HCC),Elevate d glucose tolerance test 1 kit Daily Use four times daily to check FSBS. In the morning prior to breakfast & 1 hour after each meal for a total of 4times daily. 1 kit 5 11/25/19 26 Active Lancets Ultra Thin miscIndications:G estational diabetes mellitus (GDM), antepartum, gestational diabetes method of control unspecified ([facility]),Elevate d glucose tolerance test 1 each by In Vitro route Daily Use to check FSBS four times daily 150 each 3 5 12/25/19 25 Glucose Blood (Blood Glucose Test) stripIndications: Gestational diabetes mellitus (GDM), antepartum, gestational diabetes method of control unspecified ([facility]),Elevate d glucose tolerance test 1 strip by In Vitro route Daily Use in the morning prior to breakfast, 1 hour after each meal for a total of 4times daily. 150 strip 3 5 12/25/19 25 Encounters Date Type Department Care Team Description 12/24/2024 Clinisync Result Encounter NOMS External Department Unsolicited Vic Eugene, DO 12/23/2024 Travel 12/21/2024 Clinisync Result Encounter NOMS External Department Unsolicited Vic Eugene, DO 12/21/2024 Clinisync Result Encounter NOMS External Department Unsolicited Vic Eugene, DO 12/14/2024 1:50 PM EDT Routine [facility] [address] [place] [address] Vic Eugene, DO Second trimester ([facility]); 27 weeks gestation of ([facility]); Monochorionic diamniotic twin gestation in second trimester ([facility]) 12/14/2024 Abstract [facility] [address] [place] [address] Vic Eugene, DO 12/14/2024 Bamboo flowsheet [facility] [address] [place] [address] Vic Eugene, DO 12/07/2024 Travel 12/06/2024 Abstract [facility] [address] [place] [address] Vic Eugene, DO 12/01/2024 Abstract [facility] [place] [facility] [address] [facility] [place] [address] Ximena Aly MA 11/30/2024 1:00 PM EDT Routine [facility] [place] [facility] [address] [facility] [place] [address] Vic Eugene, DO Second trimester ([facility]); 25 weeks gestation of ([facility]); Monochorionic diamniotic twin gestation in second trimester ([facility]) 11/30/2024 Bamboo flowsheet [facility] [place] [address] [place] [address] [place] [address] Vic Eugene, DO 11/24/2024 Abstract [facility] [address] [place] [address] [place] [address] Vic Eugene, DO 11/24/2024 Telephone [facility] [address] [place] [address] [place] [address] Vic Eugene, DO 11/24/2024 Clinisync Result Encounter NOMS External Department Unsolicited Vic Eugene, DO 11/23/2024 Travel 11/22/2024 Abstract [facility] [address] [place] [address] [place] [address] Vic Eugene, DO 11/22/2024 Abstract [facility] [address] [place] [address] [place] [address] Vic Eugene, DO 11/16/2024 2:20 PM EDT Routine [facility] [place] [address] [facility] [place] [address] Vic Eugene, DO Second trimester ([facility]); 23 weeks gestation of ([facility]); Diabetes mellitus screening; Monochorionic diamniotic twin gestation in second trimester ([facility]) 11/16/2024 Bamboo flowsheet [facility] [address] [facility] [place] [address] Vic Eugene, 11/09/2024 Travel 11/02/2024 Abstract [facility] [address] [facility] [place] [address] Ximena Aly, JIN 10/27/2024 Abstract [facility] [place] [address] [facility] [place] [address] Vic Eugene, 10/20/2024 3:50 PM EDT Routine [facility] [address] [facility] [place] [address] Vic Eugene, 19 weeks gestation of ([facility]); Second trimester ([facility]) 10/20/2024 Bamboo flowsheet [facility] [place] [address] [facility] [place] [address] Vic Eugene, DO 10/13/2024 Travel 10/12/2024 Abstract [facility] [place] [address] [facility] [place] [address] Vic Eugene, 10/11/2024 Abstract [facility] [place] [address] [facility] [place] [address] Vic Eugene, DO 10/01/2024 Orders Only [facility] [place] [address] [facility] [place] [address] Ximena Aly, JIN 09/28/2024 Abstract [facility] [place] [address] [facility] [place] [address] Vic Eugene, DO 09/27/2024 Abstract [facility] [address] [facility] [place] [address] Vic Eugene, from Last 3 Months Family History Medical [...] Routine [facility] [address] [place] [address] Vic Eugene DO [address] [place], [place] [id number] 03/28/2025 2:00 PM EST Office Visit [facility] [address] [place] [address] Vic Eugene DO [address] [facility] [place] [address] Goals Goal Patient Goal Type Associated Problems Recent Progress Patient-Stated? Author Reminders Care Plan OB Reminders No Open Scheduling, Background Procedures Procedure Name Priority Date/Time Associated Diagnosis Comments US OB BPP W NON-STRESS 12/24/2024 2:02 PM EDT US OB BPP W NON-STRESS 12/21/2024 3:00 PM EDT US OB BPP W NON-STRESS 12/21/2024 3:00 PM EDT POCT URINALYSIS DIPSTICK Routine 12/14/2024 2:03 PM EDT Second trimester ([facility]) GLUCOSE 1 HOUR Routine 11/24/2024 1:13 PM EDT ALL CBC WITH AUTO DIFF Routine 11/24/2024 1:13 PM EDT POCT URINALYSIS DIPSTICK Routine 10/20/2024 4:19 PM EDT 19 weeks gestation of ([facility]) Second trimester ([facility]) US OB 14+ WEEKS ANATOMY SCAN 09/27/2024 12:17 PM EDT from Last 3 Months Results * US OB BPP W NON-STRESS (12/24/2024 2:02 PM EDT) Only the most recent of3 resultswithin the time period is included. Anatomical Region Laterality Modality Other 12/24/2024 2:02 PM EDT Narrative 12/24/2024 2:05 PM EDT The [address] [address] Ultrasound Report Signed Patient: MINNIE BUNCH MR#: [id number] : 1995 Acct:[id number] Age/Sex: 29 / F ADM Date: 12/24/24 [place] [facility] [place]: Vic Eugene D.O. Ordering Physician: Vic Eugene D.O. Date of Service: 12/24/24 Procedure(s): US OB BPP w non-stress Accession Number(s): [id number] cc: Vic Eugene D.O.; Marlon Laguna M.D. The [place] [address] Patient Name: MINNIE BUNCH MRN: [facility]:[id number] date: 1995 Sex: F Assigned Patient [place] [facility] [place] Patient Location: Accession/Order Number: [id number] Exam Date: 12/24/2024 14:00 Report Date: 12/24/2024 14:02 At the request of: VIC EUGENE DO Procedure: US OB BPP w non-stress Biophysical profile. Reason for exam: Twin COMPARISON: 12/21/2024 TECHNIQUE: The garage construction equipment mechanic reports a fetus A BPP of 8 out of 8. MVP is 8.4 cm. heart rate 163 bpm. The garage construction equipment mechanic reports fetus B BPP of 8 out of 8. MVP is 5.4 cm. heart rate 147 bpm. US/US OB BPP w non-stress IMPRESSION: BPP 8out of 8 for Fetus A. BPP 8 out of 8 for fetus B. Impression dictated by: Barrington Spears Jr., D.O. 12/24/2024 2:02 PM Dictation Location: [place] [address] Electronically authenticated by: [id number] Y Date: 12/24/2024 14:02 Dictated By: Barrington Spears M.D. Signed By: 12/24/24 1405 DD/ 140 TD/TT: Computer Sciences Professor: Procedure Note Radiology, Radiologist, MD - 12/24/2024 [place] [address] Ultrasound Report Signed Patient: MINNIE BUNCH AMR#: [id number] : 1995Acct:[id number] Age/Sex: 29 / FADM Date: 12/24/24 Loc: [facility] Attending Dr: Vic Eugene D.O. Ordering Physician: Vic Eugene D.O. Date of Service: 12/24/24 Procedure(s): US OB BPP w non-stress Accession Number(s): [id number] cc: Vic Eugene D.O.; Marlon Laguna M.D. [place] [address] Patient Name: MINNIE BUNCH MRN: [facility]:[id number] date: 1995 Sex: F Assigned Patient [place] [facility] [place] Patient Location: Accession/Order Number: [id number] Exam Date: 12/24/2024 14:00 Report Date: 12/24/2024 14:02 At the request of: VIC EUGENE DO Procedure: US OB BPP w non-stress Biophysical profile. Reason for exam: Twin COMPARISON: 12/21/2024 TECHNIQUE: The garage construction equipment mechanic reports a fetus A BPP of 8 out of 8. MVP is8.4 cm. heart rate 163 bpm. The garage construction equipment mechanic reports fetus B BPP of 8 out of 8. MVP is 5.4 cm. heart rate 147 bpm. US/US OB BPP w non-stress IMPRESSION: BPP 8out of 8 for Fetus A. BPP 8 out of 8 for fetus B. Impression dictated by: Barrington Spears Jr., D.O. 12/24/2024 2:02 PM Dictation Location: [place] [address] Electronically authenticated by: [id number] Y Date: 4:02 Dictated By: Barrington Spears M.D. Signed By:12/24/24 1405 DD/ 140 TD/TT: Computer Sciences Professor: us Vic Eugene DO [facility] Final Result * POCT urinalysis dipstick manually resulted (12/14/2024 2:03 PM EDT) Only the most recent of2 resultswithin the time period is included. Color, [...] DO LAB BLOOD ORDERABLES Final Resul t [facility] * (ABNORMAL) ALL CBC WITH AUTO DIFF (11/24/2024 1:13 PM EDT) TBH WBC 10.0 4.0 - 11.0 10 3/uL TBH TBH RBC 3.67(L) 4.20 - 5.40 10 6/uL TBH TBH HGB 10.8(L) 12.0 - 16.0 g/dL TBH TBH HCT 32.1(L) 36.0 - 48.0 % TBH TBH MCV 87.5 81.0 - 99.0 fL TBH TBH MCH 29.4 26.7 - 34.0 pg TBH TBH MCHC 33.6 29.9 - 35.2 g/dL TBH TBH RDW 13.3 11.0 - 15.0 % TBH [...] - 11/24/2024 1:39 PM EDT us Vic Valorie DO [facility] Final Result [facility] * US OB 14+ weeks anatomy scan (09/27/2024 12:17 PM EDT) Anatomical Region Laterality Modality Body Ultrasound 09/27/2024 12:1 7 PM EDT Narrative 09/27/2024 12:17 PM EDT THIS EXAM WAS PERFORMED AT [facility] NAME: ALIVIA HARTMAN : 1995 SEX: F Accession Number: [id number] ORDERING PHYSICIAN: VIC EUGENE REFERRING PHYSICIAN: VIC EUGENE Coding ----- --------- Procedures 35610: Ultrasound, uterus, real time with image documentation, and maternal evaluation, after first trimester (> or = 14 weeks 0 days), transabdominal approach; single or first gestation. 2 Indication ----- --------- Screening for Anatomic Survey, [place] twin , History ----- --------- OB History 1. Para 0 [id number] Maternal Assessment ----- --------- Physical Exam Height [...] EFW (oz) 4 oz EFW by: Hadlock (XTF-QC-MW-FL) Extended Tibia 14.3 mm 15w 0d 17% [...] EFW (oz) 5 oz EFW by: Hadlock (TRN-VL-JY-FL) Extended Tibia 14.7 mm 15w 0d 21% [...] Thorax RVOT view. LVOT view. 3-vessel view. 8-adymca-lvladtl view. Diaphragm. Abdomen Kidneys. Right renal artery. [...] Thorax RVOT view. LVOT view. 3-vessel view. 3-jqpsnz-qjvatji view. Aortic arch view. Bicaval view. Ductal [...] 2.2 cm. Recommendations ----- --------- Please see [facility] documentation from today. Subsequent follow up or other follow up as clinically determined by primary OB provider unless otherwise specified by [facility]. Results forwarded to ordering provider so they can follow up with the patient as necessary. Procedure Note Radiology, Radiologist, MD - 09/27/2024 THIS EXAM WAS PERFORMED AT [facility] NAME: ALIVIA HARTMAN MANOJ : 1995 SEX: F Accession Number: [id number] ORDERING PHYSICIAN: VIC EUGENE REFERRING PHYSICIAN: VIC EUGENE Coding ----- --------- Procedures 38096: Ultrasound, uterus, real time with imagedocumentation, and maternal evaluation, after first trimester (> or = 14 weeks 0 days), transabdominalapproach; single or first gestation. 2 Indication ----- --------- Screening for Anatomic Survey, [place] twin , History ----- --------- OB History 1. Para 0 [id number] Maternal Assessment ----- --------- Physical Exam Height [...] EFW (oz) 4 oz EFW by: Hadlock (DLX-LB-VO-FL) Extended Tibia 14.3 mm 15w 0d 17% [...] EFW (oz) 5 oz EFW by: Hadlock (SUS-TX-RF-FL) Extended Tibia 14.7 mm 15w 0d 21% [...] Thorax RVOT view. LVOT view. 3-vessel view. 3-bxciuo-dtntjjbfxyl. Diaphragm. Abdomen Kidneys. Right renal artery. Left [...] Thorax RVOT view. LVOT view. 3-vessel view. 8-zebqlv-jpnchnd view.Aortic arch view. Bicaval view. Ductal arch [...] 2.2 cm. Recommendations ----- --------- Please see [facility] documentation from today. Subsequent follow up or other follow up as clinically determined byprimary OB provider unless otherwise specified by [facility]. Results forwarded to ordering provider so they can follow up with thepatient as necessary. us Vic BENTIO OB US PROCEDURES Final Resul t from Last 3 Months Additional Health Concerns Active Problems Noted Date Diagnosed Date OB Reminders 08/14/2024 Insurance * Guarantor: Minnie Bunch Account Type Relation to Patient Date of Phone Billing Address Personal/Family Self 1995 [phone] (Home) [address] [place] [address] [employer] Care Teams Customer Service Clerk Relationship Specialty Start Date End Date Marlon Laguna MD [address] [place] [address] PCP - General Family Medicine 08/29/23 Vic Eugene DO [address] [place] [address] [place] [address] Referring Physician Obstetrics and Gynecology 08/16/24
--- OUTSIDE RECORDS SUMMARY | 2024-12-28 13:57 | XMS_ITS | Encounter Summary ---
Author Organization [facility] Address [address] [place] [address] Care Team Providers Care Telemarketer Supervisor Name Role Phone Marlon Laguna MD Primary Care Provider [phone] Saul Eugene DO Unavailable Encounter Details Date Type Department Care Team (Late st Contact Info) Description 11/03/2023 Clinisync Result Encounter [facility] External Department Unsolicited Saul Eugene DO [address] [place], [place] [address] Social History Tobacco Use Types Packs/Day Years [...] AM EDT Routine [facility] [address] [facility] [place] [place] [address] Saul Eugene DO [address] [place] [address] 03/28/2025 2:00 PM EST Office Visit [facility] [address] [facility] [place] [address] Saul Eugene DO [address] [facility] [place] [address] documented as of this encounter Procedures Procedure Name Priority Date/Time Associated Diagnosis Comments MM TOMOSYNTHESIS DIAGNOSTIC BI 11/03/2023 1:17 PM EDT documented in this encounter Results * MM TOMOSYNTHESIS DIAGNOSTIC BI (11/03/2023 1:17 PM EDT) Anatomical Region Laterality Modality Other 11/03/2023 1:17 PM EDT Narrative 11/03/2023 1:18 PM EDT The [address] [address] Mammography Report Signed Patient: MINNIE SWIFT MR#: [id number] : 1995 Acct:[id number] Age/Sex: 28 / F ADM Date: 11/03/23 Loc: MAMMO Attending Dr: Saul Eugene D.O. Ordering Physician: Saul Eugene D.O. Results: Date of Service: 11/03/23 Follow Up: Procedure(s): MM tomosynthesis diagnostic BI Accession Number(s): [id number] cc: Saul Eugene D.O.; Marlon Laguna M.D. Patient Name: MINNIE SWIFT MR#: [id number] : 1995 Exam Date: 11/03/2023 Ordering Doctor: [...] Treatments None Family Cancers None LOCATION: [facility] BREAST COMPOSITION: There are scattered areas of fibroglandular density. FINDINGS: DIAGNOSTIC CATEGORY 1--NEGATIVE. Scattered benign-appearing lymph nodes are present. RIGHT BREAST: No significant suspicious finding. Hagerman marker upper outer quadrant, anterior breast corresponding [...] Signed By: 11/03/23 1318 DD/ 1317 TD/TT: Explosives Detonator: Procedure Note Radiology, Radiologist, MD - 11/03/2023 [place] [address] Mammography Report Signed Patient: MINNIE SWIFT AMR#: [id number] : 1995Acct:[id number] Age/Sex: Date: 11/03/23 Loc: MAMMO Attending Dr: Saul Eugene D.O. Ordering Physician: Saul Eugene D.O.Results: Date of Service: 11/03/23Follow Up: Procedure(s): MM tomosynthesis diagnostic BI Accession Number(s): [id number] cc: Saul Eugene D.O.; Marlon Laguna M.D. Patient Name: MINNIE SWIFT MR#: [id number] : 1995 Exam Date: 11/03/2023 Ordering Doctor: [...] Treatments None Family Cancers None LOCATION: [facility] BREAST COMPOSITION: There are scattered areas of fibroglandulardensity. FINDINGS: DIAGNOSTIC CATEGORY 1--NEGATIVE. Scattered benign-appearing lymph nodes are present. RIGHT BREAST: No significant suspicious finding. Hagerman marker upperouter quadrant, anterior breast corresponding to [...] Fitzgerald M.D. Signed By:11/03/23 1318 DD/ TD/TT: Explosives Detonator: Saul Eugene DO [facility] Final Result documented in this encounter Visit Diagnoses Not on filedocumented in this encounter Care Teams Telemarketer Supervisor Relationship Specialty Start Date End Date Marlon Laguna MD [address] [place] [address] PCP - General Family Medicine 08/29/23 Saul Eugene DO [address] [place] [address] [place] [address] Referring Physician Obstetrics and Gynecology 08/16/24 documented as of this encounter
--- OUTSIDE RECORDS SUMMARY | 2024-12-28 13:57 | XMS_ITS | Encounter Summary ---
Author Organization [facility] Address [address] [place] [address] Care Team Providers Care Planer Feeder Name Role Phone Marlon Laguna MD Primary Care Provider [phone] Saul Eugene DO Unavailable Encounter Details Date Type Department Care Team (Late st Contact Info) Description 11/02/2024 Abstract [facility] [address] [place] [address] Ximena Aly MA Social [...] Saul Eugene DO [address] [place] [address] 03/28/2025 2:00 PM EST Office Visit [facility] [address] [place] [address] Saul Eugene DO [address] [place] [address] documented as of this encounter Goals Goal Patient Goal Type Associated Problems Recent Progress Patient-Stated? Author Reminders Care Plan OB Reminders No Open Scheduling, Background documented as of this encounter Visit Diagnoses Not on filedocumented in this encounter Additional Health Concerns Active Problems Noted Date Diagnosed Date OB Reminders 08/14/2024 documented as of this encounter Care Teams Planer Feeder Relationship Specialty Start Date End Date Marlon Laguna MD [address] [facility] [place] [address] PCP - General Family Medicine 08/29/23 Saul Eugene DO [address] [place] [address] Referring Physician Obstetrics and Gynecology 08/16/24 documented as of this encounter
--- OUTSIDE RECORDS SUMMARY | 2024-12-28 13:57 | XMS_ITS | Encounter Summary ---
Author Organization [facility] Address [address] [place] [address] Care Team Providers Care Hadoop Java Developer Name Role Phone Marlon Laguna MD Primary Care Provider [phone] Saul Eugene DO Unavailable Encounter Details Date Type Department Care Team (Late st Contact Info) Description 11/22/2024 Abstract [facility] [address] [place] [address] Saul Eugene DO [address] [place], [facility] Social History Tobacco Use Types Packs/Day [...] [facility] [address] [place] [address] Saul Eugene DO [address] [place] [address] 03/28/2025 2:00 PM EST Office Visit [facility] [facility] [address] [facility] [address] Saul Eugene DO [address] [facility] [place] [address] documented as of this encounter Goals Goal Patient Goal Type Associated Problems Recent Progress Patient-Stated? Author Reminders Care Plan OB Reminders No Open Scheduling, Background documented as of this encounter Visit Diagnoses Not on filedocumented in this encounter Additional Health Concerns Active Problems Noted Date Diagnosed Date OB Reminders 08/14/2024 documented as of this encounter Care Teams Hadoop Java Developer Relationship Specialty Start Date End Date Marlon Laguna MD [address] [facility] [place] [address] PCP - General Family Medicine 08/29/23 Saul Eugene DO [address] [place] [address] Referring Physician Obstetrics and Gynecology 08/16/24 documented as of this encounter
--- OUTSIDE RECORDS SUMMARY | 2024-12-28 13:57 | XMS_ITS | Encounter Summary ---
Author Organization [facility] Address [address] [place] [address] Care Team Providers Care Diamond Assorter Name Role Phone Marlon Laguna MD Primary Care Provider [phone] Saul Eugene DO Unavailable Encounter Details Date Type Department Care Team (Late st Contact Info) Description 09/27/2024 Abstract [facility] [address] [place] [address] Saul Eugene DO [address] [place], [facility] Social History Tobacco Use Types [...] [facility] [address] [place] [address] Saul Eugene DO [address] [place] [address] 03/28/2025 2:00 PM EST Office Visit [facility] [address] [facility] [place] [address] Saul Eugene DO [address] [facility] [place] [address] documented as of this encounter Goals Goal Patient Goal Type Associated Problems Recent Progress Patient-Stated? Author Reminders Care Plan OB Reminders No Open Scheduling, Background documented as of this encounter Visit Diagnoses Not on filedocumented in this encounter Additional Health Concerns Active Problems Noted Date Diagnosed Date OB Reminders 08/14/2024 documented as of this encounter Care Teams Diamond Assorter Relationship Specialty Start Date End Date Marlon Laguna MD [address] [facility] [place] [address] PCP - General Family Medicine 08/29/23 Saul Eugene DO [address] [place] [address] Referring Physician Obstetrics and Gynecology 08/16/24 documented as of this encounter
--- OUTSIDE RECORDS SUMMARY | 2024-12-28 13:57 | XMS_ITS | Encounter Summary ---
Author Organization [facility] Address [address] [place] [address] Care Team Providers Care Comedian Name Role Phone Marlon Laguna MD Primary Care Provider [phone] Saul Eugene DO Unavailable Encounter Details Date [...] AM EDT Routine [facility] [facility] [address] [facility] [place] [address] Saul Eugene DO [address] [place], [place] [address] 03/28/2025 2:00 PM EST Office Visit [facility] [facility] [address] [place] [address] Saul Eugene DO [address] [place] [address] documented as of this encounter Goals Goal Patient Goal Type Associated Problems Recent Progress Patient-Stated? Author Reminders Care Plan OB Reminders No Open Scheduling, Background documented as of this encounter Visit Diagnoses Not on filedocumented in this encounter Additional Health Concerns Active Problems Noted Date Diagnosed Date OB Reminders 08/14/2024 documented as of this encounter Care Teams Comedian Relationship Specialty Start Date End Date Marlon Laguna MD [address] [facility] [place] [address] PCP - General Family Medicine 08/29/23 Saul Eugene DO [address] [place] [address] Referring Physician Obstetrics and Gynecology 08/16/24 documented as of this encounter
--- OUTSIDE RECORDS SUMMARY | 2024-12-28 13:58 | XMS_ITS | Patient Health Record ---
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 01 =G [facility] FLAG LEGEND: No. of containers..01 ThinPrep Vial Age Algo ACOG Jill... 21-29 01 Performed at: [address] [facility] [place] [address] Clinician Provided Cytology Information Yuni Barakat MD, Source.............Cervi x;Endocervix L-Low Normal,H-High Normal,LL-Alert Low,HH-Alert High <-Panic Low,>-Panic High,A-Abnormal,AA-Criti winsome Abnormal TESTS RESULT FLAG UNITS REF RANGE LAB IGP, rfx Aptima HPV ASCU Note . <-Panic Low,>-Panic High,A-Abnormal,AA-Criti winsome Abnormal . 02 Performed at: Yuni Barakat MD, Die Sizer: Yuni Barakat MD, Phone: [phone] Performed at: =[facility] detection of premalignant and malignant conditions of the This liquid based ThinPrep(R) pap test was screened with TESTS RESULT FLAG UNITS REF RANGE LAB Performed by: 02 Note: Note 02 L-Low Normal,H-High Normal,LL-Alert Low,HH-Alert High [address] [place] [address], [place] [phone] Test Methodology: Note 02 Die Sizer: Yuni Barakat MD, Phone: [phone] should not be used as the sole means of detecting cervical . [address] [place], [place] [address] [place] [phone] uterine cervix. It is not a diagnostic procedure and NEGATIVE FOR INTRAEPITHELIAL LESION OR MALIGNANCY. cells (endocervical component) are present. Specimen adequacy: 02 The Pap smear is a screening test designed to aid in the result therefore, no HPV testing was performed. [address] [facility] [address] Performed at: [facility] 02 WB [facility] [place] cancer. Both false-positive and false-negative reports do The HPV DNA reflex criteria were not met with this specimen Satisfactory for evaluation. Endocervical and/or squamous metaplastic occur. the use of an image guided system. Zak Coyle, Newspaper Clipper (ASCP) DIAGNOSIS: 02 FLAG LEGEND: Performing Lab: see note LC - [facility] LB CBC AUTO DIFF Reviewed date:08/13/2024 04:12:48 PM Interpretation: Performing Lab: Notes/Report: [facility] , White Blood Count 5.9 4.0-11.0 [...] Performing Lab: see note ML - [facility] LB DRUG SCREEN RAPID (URINE) Reviewed date:08/13/2024 04:12:48 PM Interpretation: Performing Lab: Notes/Report: [facility] , Cannabinoid Screen Urine NEGATIVE NEGATIVE Phencyclidine Screen Urine NEGATIVE NEGATIVE Cocaine Screen Urine NEGATIVE NEGATIVE Methamphetamines Screen Urine NEGATIVE NEGATIVE Opiate Screen Urine NEGATIVE NEGATIVE Amphetamine Screen Urine NEGATIVE NEGATIVE Benzodiazepines Screen Urine NEGATIVE NEGATIVE Tricyclic Antidepressant Urine NEGATIVE NEGATIVE Methadone Screen Urine NEGATIVE NEGATIVE Barbiturates Screen Urine NEGATIVE NEGATIVE Oxycodone Screen Urine NEGATIVE NEGATIVE Buprenorphine Screen Urine NEGATIVE NEGATIVE MTD (Methadone): 200 ng/mL OXY (Oxycodone): 100 ng/mL THC (Cannabinoids): 50 ng/mL AMP (Amphetamine): 500 ng/mL BAR (Barbiturates): 200 ng/mL DRUG CLASS TEST SYSTEM CUT-OFF CONCENTRATIONS ARE BZO (Benzodiazepines): 150 ng/mL mAMP (Methamphetamine): 500 ng/mL BUP (Buprenorphine): 10 ng/mL FOLLOWS: PCP (Phencyclidine): 25 ng/mL TCA (Trycyclic Antidepressants): 300 ng/mL CHICHI (Cocaine): 150 ng/mL OPI (Opiates): 100 ng/mL Performing Lab: see note ML - [facility] LB Rapid Plasma Reagin, Quant Reviewed date:08/14/2024 12:25:13 PM Interpretation: Performing Lab: Notes/Report: [facility] , Rapid Plasma Reagin, Quant Non Reactive NonRea<1:1 titer Rapid Plasma Reagin (RPR) Test With Reflex to Quantitative Die Sizer: Gen Oviedo PhD, Phone: [phone] infection, a reflex cascade that includes both RPR and a intended for following treatment response in patients being Performed at: - [facility] RPR and Confirmatory Treponema pallidum Antibodies Please Note: This test does not meet current guidelines for treponema-specific assay should be utilized, such as (113399). screening and diagnosis of syphilis. This test is Treponema pallidum (Syphilis) Screening [place] (015115) or [address] [place] [phone] treated for syphilis infection. To screen for syphilis Performing Lab: see note - [facility] LB HBsAg Screen Reviewed date:08/14/2024 12:25:02 PM Interpretation: Performing Lab: Notes/Report: [facility] , HBsAg Screen Negative Negative Performed at: [facility] [address] [place] [phone] Die Sizer: Gen Oviedo PhD, Phone: [phone] Performing Lab: see note [facility] LB Urine Culture, Routine Reviewed date:08/15/2024 09:38:56 AM Interpretation: Performing Lab: Notes/Report: [facility] , Urine Culture, Routine See Below For Report Urine Culture, Routine Urine Culture, Routine No growth Urine Culture, Routine Urine Culture, Routine Performed at: [facility] Urine Culture, Routine Urine Culture, Routine [address] [place] [phone] Urine Culture, Routine Urine Culture, Routine Die Sizer: Reuben Oviedo PhD, Phone: [phone] Urine Culture, Routine Performing Lab: see note - [facility] LB SEE REPORT - Glazier Helper Id information not found for OBX-specific marketing producer legend CBC AUTO DIFF Reviewed date:11/24/2024 06:33:39 PM Interpretation: Performing Lab: Notes/Report: [facility] , White Blood Count 10.0 4.0-11.0 10 [...] 3/uL Performing Lab: see note ML - [facility] LB Glucose 1 Hour Reviewed date:11/24/2024 06:33:39 PM Interpretation: Performing Lab: Notes/Report: [facility] , Glucose 1 Hour 165 <130 mg/dL Performing Lab: see note - [facility] LB US OB BPP w non-stress Reviewed date:12/26/2024 07:41:14 PM Interpretation: Performing Lab: Notes/Report: Source Facility: [place] [address] [place] [address] Ultrasound Report Signed Patient: MINNIE BUNCH MR#: [id number] : 1995 Acct:[id number] Age/Sex: 29 / F ADM Date: 12/24/24 Loc: [facility] Attending Dr: Vic Eugene D.O. Ordering Physician: LIZABETH BOOKER M.D. Date of Service: 12/24/24 Procedure(s): US OB BPP w non-stress Accession Number(s): [id number] cc: LIZABETH BOOKER M.D.; Marlon Laguna M.D. [place] [address] Patient Name: MINNIE BUNCH MRN: [id number] date: 1995 Sex: F Assigned Patient Location: [facility] Current Patient Location: Accession/Order Number: [id number] Exam Date: 12/24/2024 14:00 Report Date: 12/24/2024 14:02 At the request of: LIZABETH BOOKER MD Procedure: US OB BPP w non-stress Biophysical profile. Reason for exam: Twin COMPARISON: 12/21/2024 TECHNIQUE: The straight line edger reports a fetus A BPP of 8 out of 8. MVP is 8.4 cm. heart rate 163 bpm. The straight line edger reports fetus B BPP of 8 out of 8. MVP is 5.4 cm. heart rate 147 bpm. US/US OB BPP w non-stress IMPRESSION: BPP 8out of 8 for Fetus A. BPP 8 out of 8 for fetus B. Impression dictated by: Barrington Spears Jr., D.O. 12/24/2024 2:02 PM Dictation Location: [place] [address] Electronically authenticated by: [id number] Y Date: 12/24/2024 14:02 Dictated By: Barrington Spears M.D. Signed By: 12/24/241404 DD/ 01 TD/TT: Water Reclamation Systems Operator: [place] [address] Ultrasound Report Signed Patient: MINNIE BUNCH MR#: [id number] : 1995 Acct:[id number] Age/Sex: 29 / F ADM Date: 12/24/24 Loc: [facility] Attending Dr: Vic Eugene D.O. Ordering Physician: LIZABETH BOOKER M.D. Date of Service: 12/24/24 Procedure(s): US OB BPP w non-stress Accession Number(s): [id number] cc: ANIVAL BOOKER M.D.; Marlon Laguna M.D. [place] [id number] Patient Name: MINNIE BUNCH MRN: [id number] date: 1995 Sex: F Assigned Patient Location: [facility] Current Patient Location: Accession/Order Number: [id number] Exam Date: 12/24/2024 14:00 Report Date: 12/24/2024 14:02 At the request of: LIZABETH BOKOER MD Procedure: US OB BPP w non-stress Biophysical profile. Reason for exam: Twi n COMPARISON: 12/21/2024 TECHNIQUE: The straight line edger reports a fetus A BPP of 8 out of 8. MVP is 8.4 cm. heart rate 163 bpm. The straight line edger reports fetus B BPP of 8 out of 8. MVP is 5.4 cm. heart rate 147 bpm. US/US OB BPP w non-stress IMPRESSION: BPP 8out of 8 for Fetus A. BPP 8 out of 8 for fetus B. Impression dictated by: Barrington Spears Jr., D.O. 12/24/2024 2:02 PM Dictation Location: [place] [address] Electronically authenticated by: [id number] Y Date: 12/24/2024 14:02 Dictated By: Barrington Spears M.D. Signed By: 12/24/24 1405 DD/ 140 TD/TT: Water Reclamation Systems Operator: US OB BPP w non-stress Reviewed date:12/26/2024 07:41:14 PM Interpretation: Performing Lab: Notes/Report: Source Facility: [place] [address] Ultrasound Report Signed Patient: MINNIE BUNCH MR#: [id number] : 1995 Acct:[id number] Age/Sex: 29 / F ADM Date: 12/24/24 Loc: [facility] Attending Dr: Vic Eugene D.O. Ordering Physician: Vic Eugene D.O. Date of Service: 12/24/24 Procedure(s): US OB BPP w non-stress Accession Number(s): [id number] cc: Vic Eugene D.O.; Marlon Laguna M.D. [place] [address] Patient Name: MINNIE BUNCH MRN: [id number] date: 1995 Sex: F Assigned Patient Location: [facility] Current Patient Location: Accession/Order Number: [id number] Exam Date: 12/24/2024 14:00 Report Date: 12/24/2024 14:02 At the request of: VIC EUGENE DO Procedure: US OB BPP w non-stress Biophysical profile. Reason for exam: Twin COMPARISON: 12/21/2024 TECHNIQUE: The straight line edger reports a fetus A BPP of 8 out of 8. MVP is 8.4 cm. heart rate 163 bpm. The straight line edger reports fetus B BPP of 8 out of 8. MVP is 5.4 cm. heart rate 147 bpm. US/US OB BPP w non-stress IMPRESSION: BPP 8out of 8 for Fetus A. BPP 8 out of 8 for fetus B. Impression dictated by: Barrington Spears Jr., D.O. 12/24/2024 2:02 PM Dictation Location: [place] [address] Electronically authenticated by: [id number] Y Date: 12/24/2024 14:02 Dictated By: Barrington Spears M.D. Signed By: 12/24/24 1405 DD/ 140 TD/TT: Water Reclamation Systems Operator: [place] [address] Ultrasound Report Signed Patient: MINNIE BUNCH MR#: [id number] : 1995 Acct:[id number] Age/Sex: 29 / F ADM Date: 12/24/24 Loc: [facility] Attending Dr: Vic Eugene D.O. Ordering Physician: Vic Eugene D.O. Date of Service: 12/24/24 Procedure(s): US OB BPP w non-stress Accession Number(s): [id number] cc: Vic Eugene D.O. ; Marlon Laguna M.D. [place] [address] Patient Name: MINNIE BUNCH MRN: [id number] date: 1995 Sex: F Assigned Patient Location: [facility] Current Patient Location: Accession/Order Number: [id number] Exam Date: 12/24/2024 14:00 Report Date: 12/24/2024 14:02 At the request of: VIC EUGENE DO Procedure: US OB BPP w non-stress Biophysical profile. Reason for exam: Twi n COMPARISON: 12/21/2024 TECHNIQUE: The straight line edger reports a fetus A BPP of 8 out of 8. MVP is 8.4 cm. heart rate 163 bpm. The straight line edger reports fetus B BPP of 8 out of 8. MVP is 5.4 cm. heart rate 147 bpm. US/US OB BPP w non-stress IMPRESSION: BPP 8out of 8 for Fetus A. BPP 8 out of 8 for fetus B. Impression dictated by: Barrington Spears Jr., D.O. 12/24/2024 2:02 PM Dictation Location: [place] Electronically authenticated by: [id number] Y Date: 12/24/2024 14:02 Dictated By: Barrington Spears M.D. Signed By: 12/24/24 1405 DD/ 1402 TD/TT: Water Reclamation Systems Operator: HCV Antibody RFX to Quant PC R Reviewed date:08/14/2024 11:30:48 AM Interpretation: Performing Lab: Notes/Report: [facility] , HCV Ab Non Reactive Non Reactive Interpretation: Comment . individual), or other evidence exists to indicate HCV Not infected with HCV unless early or acute infection is infection. suspected (which may be delayed in an immunocompromised Performing Lab: see note - [facility] LB HIV Ab/p24 Ag with Reflex Reviewed date:08/14/2024 11:30:48 AM Interpretation: Performing Lab: Notes/Report: [facility] , HIV Ab/p24 Ag Screen Non Reactive Non Reactive Die Sizer: Gen Oviedo PhD, Phone: [phone] HIV Negative detected. There is no laboratory evidence of HIV infection. Performed at: - [address] [phone] HIV-1/HIV-2 antibodies and HIV-1 p24 antigen were NOT Performing Lab: see note - [facility] LB RUBELLA AB IGG Reviewed date:08/14/2024 11:30:48 AM Interpretation: Performing Lab: Notes/Report: [facility] , Rubella Antibodies, IgG <0.90 Immune > 0.99 index Die Sizer: Gen Oviedo PhD, Phone: [phone] [address], [place] [phone] Performed at: CB - [facility] [place] Equivocal 0.90 - 0.99 Non-immune <0.90 Immune >0.99 Performing Lab: see note - [facility] LB GLYCOHEMOGLOBIN A1C Reviewed date:08/13/2024 04:12:48 PM Interpretation: Performing Lab: Notes/Report: [facility] , Glycohemoglobin A1C 5.4 4.5-6.2 % ADA THERAPEUTIC TARGET < 7.0 ACTION SUGGESTED > 7.0 ADA RECOMMENDED LIMIT 4.0 - 6.0 Estimated Average Glucose 108 Performing Lab: see note - [facility] US OB BPP w non-stress Reviewed date:12/21/2024 03:07:55 PM Interpretation: Performing Lab: Notes/Report: Source Facility: [place] [address] Ultrasound Report Signed Patient: MINNIE BUNCH MR#: [id number] : 1995 Acct:[id number] Age/Sex: 29 / F ADM Date: 12/21/24 Loc: US Attending Dr: Vic Eugene D.O. Ordering Physician: Vic Eugene D.O. Date of Service: 12/21/24 Procedure(s): US OB BPP w non-stress Accession Number(s): [id number] cc: Vic Eugene D.O.; Marlon Laguna M.D. [place] [address] Patient Name: MINNIE BUNCH MRN: [id number] date: 1995 Sex: F Assigned Patient Location: US Current Patient Location: Accession/Order Number: [id number] Exam Date: 12/21/2024 14:56 Report Date: 12/21/2024 15:00 At the request of: VIC EUGENE DO Procedure: US OB BPP w non-stress Biophysical profile. Reason for exam: No chorionic diamniotic twin gestation. COMPARISON: None TECHNIQUE: Transabdominal imaging of the gravid uterus was obtained. FINDINGS: The straight line edger reports a fetus A BPP of 6 out of 8 with 0 points for breathing.. MVP is 6.3 cm. heart rate 135 bpm. The straight line edger reports fetus B BPP of 8 out of 8. MVP is 3.7 cm. heart rate 139 bpm. US/US OB BPP w non-stress IMPRESSION: BPP 6out of 8 for Fetus A. Correlation with NST is recommended. BPP 8 out of 8 for fetus B. Impression dictated by: Barrington Spears Jr., D.O. 12/21/2024 3:00 PM [facility]ictation [facility] authenticated by: [id number] Y Date: 12/21/2024 15:00 Dictated By: Barrington Spears M.D. Signed By: 12/21/24 1502 DD/ 1500 TD/TT: Water Reclamation Systems Operator: [place] [address] Ultrasound Report Signed Patient: MINNIE BUNCH MR#: [id number] : 1995 Acct:[id number] Age/Sex: 29 / F ADM Date: 12/21/24 Loc: US Attending Dr: Vic Eugene D.O. Ordering Physician: Vic Eugene D.O. Date of Service: 12/21/24 Procedure(s): US OB BPP w non-stress Accession Number(s): [id number] cc: Vic Eugene D.O. ; Marlon Laguna M.D. [place] [address] Patient Name: MINNIE BUNCH MRN: [id number]:[id number] date: 1995 Sex: F Assigned Patient Location: US Current Patient Location: Accession/Order Number: [id number] Exam Date: 12/21/2024 14:56 Report Date: 12/21/2024 15:00 At the request of: VIC EUGENE DO Procedure: US OB BPP w non-stress Biophysical profile. Reason for exam: No chorionic diamniotic twin gestation. COMPARISON: None TECHNIQUE: Transabdominal imaging of the gravid uterus was obtained. FINDINGS: The straight line edger reports a fetus A BPP of 6 out of 8 with 0 points for breathing. . MVP is 6.3 cm. heart rate 135 bpm. The straight line edger reports fetus B BPP of 8 out of 8. MVP is 3.7 cm. heart rate 139 bpm. US/US OB BPP w non-stress IMPRESSION: BPP 6out of 8 for Fetus A. Correlation with NST is recommended. BPP 8 out of 8 for fetus B. Impression dictated by: Barrington Spears Jr., D.O. 12/21/2024 3:00 PM Dictation Location: [place] [address] Electronically authenticated by: [id number] Y Date: 12/21/2024 15:00 Dictated By: Barrington Spears M.D. Signed By: 12/21/24 1502 DD/ 1500 TD/TT: Water Reclamation Systems Operator: US OB BPP w non-stress Reviewed date:12/21/2024 03:07:55 PM Interpretation: Performing Lab: Notes/Report: Source Facility: [place] [address] Ultrasound Report Signed Patient: MINNIE BUNCH MR#: [id number] : 1995 Acct:[id number] Age/Sex: 29 / F ADM Date: 12/21/24 Loc: US Attending Dr: Vic Eugene D.O. Ordering Physician: Vic Eugene D.O. Date of Service: 12/21/24 Procedure(s): US OB BPP w non-stress Accession Number(s): [id number] cc: Vic Eugene D.O.; Marlon Laguna M.D. [facility] [place] [address] Patient Name: MINNIE BUNCH MRN: [facility]:[id number] date: 1995 Sex: F Assigned Patient Location: US Current Patient Location: Accession/Order Number: [id number] Exam Date: 12/21/2024 14:56 Report Date: 12/21/2024 15:00 At the request of: VIC EUGENE DO Procedure: US OB BPP w non-stress Biophysical profile. Reason for exam: No chorionic diamniotic twin gestation. COMPARISON: None TECHNIQUE: Transabdominal imaging of the gravid uterus was obtained. FINDINGS: The straight line edger reports a fetus A BPP of 6 out of 8 with 0 points for breathing.. MVP is 6.3 cm. heart rate 135 bpm. The straight line edger reports fetus B BPP of 8 out of 8. MVP is 3.7 cm. heart rate 139 bpm. US/US OB BPP w non-stress IMPRESSION: BPP 6out of 8 for Fetus A. Correlation with NST is recommended. BPP 8 out of 8 for fetus B. Impression dictated by: Barrington Spears Jr., D.O. 12/21/2024 3:00 PM Dictation Location: [employer] Electronically authenticated by: [id number] Y Date: 12/21/2024 15:00 Dictated By: Barrington Spears M.D. Signed By: 12/21/24 1502 DD/ 1500 TD/TT: Water Reclamation Systems Operator: [place] [address] Ultrasound Report Signed Patient: MINNIE BUNCH MR#: [id number] : 1995 Acct:[id number] Age/Sex: 29 / F ADM Date: 12/21/24 Loc: US Attending Dr: Vic Eugene D.O. Ordering Physician: Vic Eugene D.O. Date of Service: 12/21/24 Procedure(s): US OB BPP w non-stress Accession Number(s): [id number] cc: Vic Eugene D.O. ; Marlon Laguna M.D. [place] [address] Patient Name: MINNIE BUNCH MRN: [facility]:[id number] date: 1995 Sex: F Assigned Patient Location: Current Patient Location: Accession/Order Number: [id number] Exam Date: 12/21/2024 14:56 Report Date: 12/21/2024 15:00 At the request of: VIC EUGENE DO Procedure: US OB BPP w non-stress Biophysical profile. Reason for exam: No chorionic diamniotic twin gestation. COMPARISON: None TECHNIQUE: Transabdominal imaging of the gravid uterus was obtained. FINDINGS: The straight line edger reports a fetus A BPP of 6 out of 8 with 0 points for breathing. . MVP is 6.3 cm. heart rate 135 bpm. The straight line edger reports fetus B BPP of 8 out of 8. MVP is 3.7 cm. heart rate 139 bpm. US/US OB BPP w non-stress IMPRESSION: BPP 6out of 8 for Fetus A. Correlation with NST is recommended. BPP 8 out of 8 for fetus B. Impression dictated by: Barrington Spears Jr., D.O. 12/21/2024 3:00 PM Dictation Location: [employer] Electronically authenticated by: [id number] Y Date: 12/21/2024 15:00 Dictated By: Barrington Spears M.D. Signed By: 12/21/24 1502 DD/ 1500 TD/TT: Water Reclamation Systems Operator: Delilah STUART HPV,Age Gdln Reviewed date:09/27/2024 07:57:34 PM Interpretation: Performing Lab: Notes/Report: SPATULA-ALONE CERVIX [facility] , Age Gdln ACOG Testing Note . 01 =G [facility] Rick TESTS RESULT FLAG UNITS REF RANGE LAB Source.............Cervi x <-Panic Low,>-Panic High,A-Abnormal,AA-Criti winsome Abnormal Performed at: Other..............Pregn ant Clinician Provided Cytology Information L-Low Normal,H-High Normal,LL-Alert Low,HH-Alert High Age Algo ACOG Jill... FLAG LEGEND: No. of containers..[address] [place] [address] Yuni Barakat MD, IGP, rfx Aptima HPV ASCU Note . Specimen adequacy: DIAGNOSIS: 02 FLAG LEGEND: Satisfactory for evaluation. No endocervical component is identified. Note: Note 02 L-Low Normal,H-High Normal,LL-Alert Low,HH-Alert High Die Sizer: Yuni Barakat MD, Phone: [phone] cancer. Both false-positive and false-negative reports do the use of an image guided system. Performed at: [facility] should not be used as the sole means of detecting cervical uterine cervix. It is not a diagnostic procedure and This liquid based ThinPrep(R) pap test was screened with [address] [place] [address], [place] [phone] result therefore, no HPV testing was performed. NEGATIVE FOR INTRAEPITHELIAL LESION OR MALIGNANCY. Performed at: =[facility] detection of premalignant and malignant conditions of the occur. Yuni Barakat MD, . 02 [facility] [place], [place] [phone] Die Sizer: Yuni Barakat MD, Phone: [phone] The Pap smear is a screening test designed to aid in the [place] [address] TESTS RESULT FLAG UNITS REF RANGE LAB Karen Fitzgerald Crm Marketing Specialist (ASCP) . 06 27 WB [facility] Rick Performed by: Performed at: Test Methodology: Note 02 An endocervical component is not commonly seen in the patient. The HPV DNA reflex criteria were not met with this specimen <-Panic Low,>-Panic High,A-Abnormal,AA-Criti winsome Abnormal Performing Lab: see note LC - [facility] LB Type and Screen Reviewed date:08/13/2024 04:12:48 PM Interpretation: Performing Lab: Notes/Report: [facility] , Blood Type A Positive Antibody Screen NEGATIVE Reason For Referral No Information Medications Medication [...] Problem Status W/U Status Risk Notes Problem 77452933 Other chronic pain (G89.29) Active confirmed Problem 09699150 Anxiety (F41.9) Active confirmed Problem Palpitations (76072673) Palpitation (R00.2) Active confirmed Problem Migraine (29880546) Migraine (G43.909) Active confirmed Problem 311681883 Hypoglycemia (E16.2) Active confirmed Problem Seasonal allergy (224477595) Seasonal allergies (J30.2) Active confirmed Problem 53871759 Left-sided face pain (R51) Active confirmed Problem [id number] Trigeminal neuralgia of left side of face (G50.0) Active confirmed Vital Signs Blood pressure diastolic 78 mm Hg 04/09/2024 Height 62.5 in 04/09/2024 Blood pressure systolic 126 mm Hg 04/09/2024 Weight 143.8 lbs 04/09/2024 BMI 25.88 kg/m2 04/09/2024 Encounters Encounter Location Date Provider Diagnosis [facility] [address] [place] [address] 04/09/2024 Harsh Randolphy Migraine G43.909 Assessments Encounter Date Diagnosis (ICD [...] Insured Coverage Start Date Coverage End Date [facility] [address] [place] [phone] [id number] Binta Bunch Spouse - patient is the spouse of the insured Medical (General) History Medical History History ICD Code Abdominal migraines Anxiety Trigeminal neuralgia Surgical History Surgery Date(Month/Year) wisdom teeth Appendectomy 08/08/2018 Hospitalization History Reason Date(Month/Year) See above
--- OUTSIDE RECORDS SUMMARY | 2024-12-28 13:58 | XMS_ITS | Encounter Summary ---
Author Organization [facility] tem Address [facility] [id number] [address] [place] [address] Care Team Providers Care Warper Fixer Name Role Phone Belén Rooney MD Primary Care Provider Encounter Details Date Type Department Care Team (Late st Contact Info) Description 04/26/2021 Orders Only [facility] Neurology - Farshad Ramsay MD [address] [phone] Farshad Ramsay MD [address] [place] [id number] Trigeminal neuralgia Social History Tobacco Use Types [...] Info) Description 12/29/2024 11:00 AM EDT Appointment [facility] US Imaging [address] [place] [address] 12/29/2024 1:00 PM EDT Office Visit Maternal- Medicine at [facility] [address] [place] [address] Alex Subramanian MD [address], [address] [place] [phone] 01/10/2025 8:30 AM EDT Office Visit Maternal- Medicine at [facility] [address] [place] [phone] Jefferson Nava MD [address], [address] [place] [address] documented as of this encounter Procedures Procedure Name Priority Date/Time Associated Diagnosis Comments CBC WITH AUTO DIFFERENTIAL Routine 04/25/2021 Trigeminal neuralgia LIVER PANEL Routine 04/25/2021 Trigeminal neuralgia documented in this encounter Results * CBC auto differential (04/25/2021) 04/25/2021 us Farshad Ramsay MD LAB BLOOD ORDERABLES Final Result Performing Organization Address City/[facility]/ZIP Co de Phone Number MANUALLY TRANSCRIBED RESULTS * Liver panel (04/25/2021) 04/25/2021 us Farshad Ramsay MD LAB BLOOD ORDERABLES Edited Result - Final MANUALLY TRANSCRIBED RESULTS documented in this encounter Visit Diagnoses Diagnosis Trigeminal neuralgia documented in this encounter Care Teams Warper Fixer Relationship Specialty Start Date End Date Belén Rooney MD [address] [place] [phone] PCP - General Family Medicine 09/29/18 documented as of this encounter
--- OUTSIDE RECORDS SUMMARY | 2024-12-28 13:58 | XMS_ITS | Encounter Summary ---
Author Organization [employer] s tem Address [id number] [address] [place] [address] Care Team Providers Care Director Instrumentation Name Role Phone Belén Rooney MD Primary Care Provider Reason for Visit * Reason Onset Date Comments Med Refill 07/05/2021 Encounter Details Date Type Department Care Team (Late st Contact Info) Description 07/05/2021 Refill [facility] Neu[facility] - Farshad Ramsay MD [address] [phone] Farshad Ramsay MD [address] [place] [address] Trigeminal neuralgia (Primary Dx) Social History Tobacco [...] Info) Description 12/29/2024 11:00 AM EDT Appointment [facility] US Imaging [address] [facility] [place] [phone] 12/29/2024 1:00 PM EDT Office Visit Maternal- Medicine at [facility] [address] [facility] [place] [address] Alex Subramanian MD [address] [facility] [place], [address] [place] [address] 01/10/2025 8:30 AM EDT Office Visit Maternal- Medicine at [facility] [address] [place] [address] Jefferson Nava MD [address], [address] [place] [address] documented as of this encounter Visit Diagnoses Diagnosis Trigeminal neuralgia- Primary documented in this encounter Care Teams Director Instrumentation Relationship Specialty Start Date End Date Belén Rooney MD [address] [place] [phone] PCP - General Family Medicine 09/29/18 documented as of this encounter
[2024-12-28 14:30] VITALS: BP 121/64; PULSE 77
== END 2024-12-28 15:00 | disposition home or self-care (01) ==
LOC: US 13:54 → FBC 13:55
PROVIDERS: PCP Family Medicine; Visit Provider Obstetrics & Gynecology
DX: O30.039 Twin pregnancy, monochorionic/diamniotic, unspecified trimester (principal)
CPT/HCPCS: 76818

== ENCOUNTER 2024-12-30 08:09 | Outpatient (OUT) | payer OTHER, SELFPAY ==
--- OUTSIDE RECORDS SUMMARY | 2023-12-18 13:03 | XMS_ITS ---
Author Organization The [facility] in [place] Address [address] [place] [address] Care Team Providers Care Regulatory Lead Name Role Phone Harsh Laguna Primary Care Provider REASON FOR VISIT Massage rx- Medications Medication SIG (Take, Route, Fr equency, Duration) Notes Start Date End Date Status Cyproheptadine HCl 4 MG Take 1 tablet by mouth once daily for 90 days Active Encounters Encounter Location Date Provider Diagnosis [facility] [address] [place] [address] 12/18/2023 Harsh Laguna Headache, unspecifie d R51.9 [...] Alia TURCIOS ADOB: [birth year] (28 yo F)Acc No.[id number]:12/18/2023 Patient: Christopher GONZALEZAlia ANGELA :1995 A ge:28 Y S ex:Female Address:[facility] [place] [address] * Refills Refill Cyproheptadine HCl Tablet, 4 MG, 90 Tablet, Take 1 tablet by mouth once daily, 90 days, Refills=3 * true * Date: Generated for Denis salcedo/Uzair/Maribell on: 0 12/30/2024 08:18 AM EDT
--- OUTSIDE RECORDS SUMMARY | 2023-12-18 13:18 | XMS_ITS ---
Author Organization The [facility] in [place] Address [address] [place] [address] Care Team Providers Care Garageman Name Role Phone Harsh Laguna Primary Care Provider REASON FOR VISIT RE:Doctor Encounters Encounter Location Date Provider Diagnosis [facility] [address] [place] [address] 12/18/2023 Harsh Laguna Plan Of Treatment No Information Progress Notes * Alia TURCIOS ADOB: [birth year] (28 yo F)Acc No.[id number]:12/18/2023 Patient: Christopher REYES Alia Avani :1995 A ge:28 Y S ex:Female Address:[facility] [address], [place] [address] * true * Date: Generated for Printi ng/Fadavidg/eTransmitting on: 0 12/30/2024 08:12 AM EDT
--- OUTSIDE RECORDS SUMMARY | 2024-04-09 07:00 | XMS_ITS ---
Author Organization The [facility] in [place] Address [address] [place] [address] Care Team Providers Care Nursing Student Name Role Phone Harsh Laguna Primary Care Provider [phone] Allergies No Known Allergies REASON FOR VISIT [...] day 04/09/2024 Active Vitamin D 50 MCG (1999) 1 capsule Ora lly Once a day [...] Problem Migraine (G43.909) Active confirmed Vital Signs Blood pressure systolic 126 mm Hg 04/09/20 24 Blood pressure diastolic 78 mm Hg 024 Height 62.5 in 04/09/2024 Weight 143.8 lbs 04/09/2024 BMI 25.88 kg/m2 04/09/2024 Encounters Encounter Location Date Provider Diagnosis [facility] [address] [facility] [place] [address] 04/09/2024 Harsh Laguna Migraine G43.909 Assessments Encounter [...] * SAQIBREBEKAAlia ADOB: [birth year] (28 yo F)Acc No.[id number]:04/09/2024 Progress Note Patient: Alia BETANCOURT Provider: Sandra Laguna ([facility])MD :1995 A ge:28 Y S ex:Female Date:04/09/2024 Address:[facility] [address], [facility] Check In:10:54 AM ESTCheck O ut:11:45 AM [...] now does more in necka nd into protestant area constant pressure Chnage in headche - [...] Procedure Codes: * Preventive Medicine: Screenings/Counseling: B [place] ACTION PLAN Above Normal BMI Follow-up D ietary management education, guidance, and counseling See treatment section of progress note for complete details of management plan. * * Sign off status: Completed Visit Status: C HK (Check Out) true * Provider: Sandra Laguna ([facility])MD Date: 1 06/09/2023 Generated for Printi denisse/Uzair/eTransmitting on: 0 12/30/2024 08:11 AM EDT History and Physical Notes * HPI (History of Present Illness) Category Sub-Category Detail Notes Category Not es Depression Screening PHQ-2 (2015 Edition) Little interest or pleasure in doing things?: Not at all was on gabapentin for trigeminal neuralgia - not had headaches in the pats\ now does more in necka nd into protestant area constant pressure Chnage in headche - [...]
--- OUTSIDE RECORDS SUMMARY | 2024-09-10 07:15 | XMS_ITS ---
Author Organization [facility] vices Address [address] [place] [phone] Care Team Providers Care Interlibrary Loan Specialist Name Role Phone Heaven Vera Unavailable [phone] Yuliet Lozano Unavailable [phone] REASON FOR VISIT Recall (A) (28) Social History Sex Assigned At : Social History Observation Description Sex Assigned At Female Encounters Encounter Location Date Provider Diagnosis [facility] [address] [place] [phone] 09/10/2024 Yuliet Lozano Plan Of Treatment Next Appt Details Provider Name:Deshawn Moon , 06/10/2025 09:45:00 AM, [address] [place] [address], [phone], Progress Notes * Alia BUNCHDOB: 6 (29 yo F)Acc No.[id number]:09/10/2024 Patient: Alia BETANCOURT Provider: Kimberlee Lozano DMD :1995 A ge:29 Y S ex:Female Date:09/10/2024 Address:[address], [id number] Subjective: * Chief Complaints: * 1 . Recall (A) (28). * Medical History: Objective: * Vitals: Assessment: Plan: * Treatment: * Billing Information: * Visit Code: * Procedure Codes: * Electronic signature of Audra Lozano DMD on 12/30/2024 at 08:18 AM EDT Sign off status: Pending * Provider: Kimberlee Lozano DMD Date: 0 09/10/2024 Generated for Denis salcedo/Uzair/Maribell on: 0 12/30/2024 08:18 AM EDT
--- OUTSIDE RECORDS SUMMARY | 2024-12-20 14:54 | XMS_ITS | Encounter Summary ---
Author Organization [facility] [facility] Productionsb[facility] southG[facility] tem Address [id number] [address] [place] [address] Care Team Providers Care Tombstone Carver Name Role Phone Belén Rooney MD Primary Care Provider + [phone] Reason for Referral * Diagnostic Imaging (Routine) [...] without consult Blaise Woodall MD [address] [facility] 1st [place] [address] Phone: tel: fax: Maternal- Medicine at [facility] [address] [place] [address] Phone: tel: fax: Referral ID Status Reason Start Date Expiration Date V isits Requested Visits Authorized [id number] Pending Review 12/08/2024 12/08/2025 1 1 Reason [...] twin gestation in second trimester Procedures US [facility] with or without consult Blaise Woodall MD [address] [facility] 1st [place] [address] Phone: tel: fax: Maternal- Medicine at [facility] [address] [place] [address] Phone: tel: fax: Referral ID Status Reason Start Date Expiration Date V isits Requested Visits Authorized [id number] Pending Review 12/08/2024 12/08/2025 1 1 Encounter Details Date Type Department Care Team (Latest Contact Info) Description 12/20/2024 2:54 PM EDT - 12/20/2024 11:59 PM EDT Hospital Encounter [facility] US Imaging [address] [place] [address] Intrauterine growth restriction affecting antepartum [...] = 0.6 oz pur e alcohol) [facility] Utilities Answer Date Recorded In the past 12 months has [employer], gas, oil, or water [employer] threatened to shut off services in your [...] Info) Description 01/06/2025 8:45 AM EDT Appointment [facility] US Imaging [address] [place] [address] 01/10/2025 8:30 AM EDT Office Visit Maternal- Medicine at [facility] [address] [facility] [place] [address] Jefferson Nava MD [address], [address] [place] [address] 01/12/2025 9:00 AM EDT Appointment [facility] US Imaging [address] [place] [address] documented as of this encounter Procedures Procedure [...] 3:58 PM EDT) Anatomical Region Laterality Modality OB-IRISH MOSS OPERATOR Ultrasound 12/20/2024 3:17 PM EDT Narrative 12/20/2024 4:11 PM EDT NAME: ALIVIA HARTMAN : 1995 SEX: F Accession Number: [id number] ORDERING PHYSICIAN: BLAISE WOODALL REFERRING PHYSICIAN: VIC MCKEON Coding ----- --------- Procedures 93214: Limited OB / NATHAN, 1 or More Fetuses 94607: Doppler velocimetry, ; umbilical artery. 2 92054: Doppler velocimetry, ; middle cerebral artery. 2 42315: Doppler Ductus Venosus. 2 Indication ----- --------- [place]-Di twin , IUGR-Poor growth-twin A & B, Pre term contractions, Supervision of high risk History ----- --------- OB History 1. Para 0 [id number] Maternal Assessment ----- --------- Physical Exam Height [...] HARTMAN : 1995 SEX: F Accession Number: [id number] ORDERING PHYSICIAN: BLAISE WOODALL REFERRING PHYSICIAN: VIC MCKEON Coding ----- --------- Procedures 89504: Limited OB / NATHAN, 1 or More Fetuses 05732: Doppler velocimetry, ; umbilical artery. 2 28639: Doppler velocimetry, ; middle cerebral artery. 2 54855: Doppler Ductus Venosus. 2 Indication ----- --------- [place] twin , IUGR-Poor growth-twin A & B, Pre termcontractions, Supervision of high risk History ----- --------- OB History 1. Para 0 [id number] Maternal Assessment ----- --------- Physical Exam Height [...] byprimary OB provider unless otherwise specified by [facility]. Results forwarded to ordering provider so they can follow up with thepatient as necessary. Blaise Woodall MD [facility] ORDERABLES Final Result documented in this encounter Visit Diagnoses Diagnosis Intrauterine growth restriction affecting antepartum care of mother in second trimester, fetus 1 of multiple gestation Intrauterine growth restriction affecting antepartum care of mother in second trimester, fetus 2 of multiple gestation Monochorionic diamniotic twin gestation in second trimester documented in this encounter Care Teams Tombstone Carver Relationship Specialty Start Date End Date Belén Rooney MD [facility] [place] [phone] PCP - General Family Medicine 09/29/18 documented as of this encounter
--- OUTSIDE RECORDS SUMMARY | 2024-12-23 04:45 | XMS_ITS ---
Author Organization [facility] vices Address [address] [place] [phone] Care Team Providers Care Tax Collection Coordinator Name Role Phone Heaven Vera Unavailable [phone] Deshawn Moon Unavailable [phone] REASON FOR VISIT Recall (A) 29 Social History Sex Assigned At : Social History Observation Description Sex Assigned At Female Encounters Encounter Location Date Provider Diagnosis [facility] Main [address] [place] [phone] 12/23/2024 Deshawn Moon Plan Of Treatment Next Appt Details Provider Name:Deshawn Moon , 06/10/2025 09:45:00 AM, [address] [place], [place], [phone], Progress Notes * Alia BUNCHDOB: 6 (29 yo F)Acc No.[id number]:12/23/2024 Patient: Alia BETANCOURT Provider: Christopher Moon DDS :1995 A ge:29 Y S ex:Female Date:12/23/2024 Address:[address] [place], [id number] Subjective: * Chief Complaints: * 1 . Recall (A) 29. * Medical History: Objective: * Vitals: Assessment: Plan: * Treatment: * Billing Information: * Visit Code: * Procedure Codes: * Electronic signature of Nessa Moon DDS on 12/30/2024 at 08:12 AM EDT Sign off status: Pending * Provider: Christopher Moon DDS Date: 0 12/23/2024 Generated for Denis salcedo/Uzair/Maribell on: 0 12/30/2024 08:12 AM EDT
--- OUTSIDE RECORDS SUMMARY | 2024-12-29 10:47 | XMS_ITS | Encounter Summary ---
Author Organization [facility] tem Address [id number] [address] [place] [address] Care Team Providers Care Mba Internship Name Role Phone Belén Rooney MD Primary Care Provider + [phone] Reason for Referral * Diagnostic Imaging (Routine) - Pending Review Specialty Diagnoses / Procedures Referred By Butr sellers Referred To Contact Maternal and Medicine Diagnoses Intrauterine growth restriction affecting antepartum care of mother in second trimester, fetus 1 of multiple gestation Intrauterine growth restriction affecting antepartum care of mother in second trimester, fetus 2 of multiple gestation Monochorionic diamniotic twin gestation in second trimester Procedures US MF with or without consult Gracy Wooadll MD [address] [facility] 1[address] [place] [address] Phone: tel: fax: Maternal- Medicine at [facility] [address] [place] [address] Phone: tel: fax: Referral ID Status Reason Start Date Expiration Date V isits Requested Visits Authorized [id number] Pending Review 12/08/2024 12/08/2025 1 1 Reason [...] twin gestation in second trimester Procedures US [facility] with or without consult Gracy Woodall MD [address] [facility] 1[address] [place] [address] Phone: tel: fax: Maternal- Medicine at [facility] [address] [place] [address] Phone: tel: fax: Referral ID Status Reason Start Date Expiration Date V isits Requested Visits Authorized [id number] Pending Review 12/08/2024 12/08/2025 1 1 Encounter Details Date Type Department Care Team (Latest Contact Info) Description 12/29/2024 10:47 AM EDT - 12/29/2024 11:59 PM EDT Hospital Encounter [facility] - [facility] US Imaging [address] [place] [address] Intrauterine growth restriction affecting antepartum [...] = 0.6 oz pur e alcohol) [facility] Utilities Answer Date Recorded In the past 12 months has [employer], gas, oil, or water [employer] threatened to shut off services in your [...] magnesium oxide (MAG-OX) 400 mg tablet 09/24/2016 magnesium oxide (MAGOX) 400 mg tablet Take 1 tablet (400 mg total) by mouth before bedtime. ondansetron (ZOFRAN) 4 mg tablet Take 4 [...] Info) Description 01/06/2025 8:45 AM EDT Appointment [facility] US Imaging [address] [place] [phone] 01/10/2025 8:30 AM EDT Office Visit Maternal- Medicine at [facility] [address] [place] [phone] Jefferson Nava MD [address] [facility], [address] [place] [address] 01/12/2025 9:00 AM EDT Appointment [facility] US Imaging [address] [place] [phone] Pending Results Name Type Priority Associated Diagnoses Date /Time US MFM with or without consult Imaging Routine Intrauterine growth restriction affecting antepartum care of mother in second trimester, fetus 1 of multiple gestation Intrauterine growth restriction affecting antepartum care of mother in second trimester, fetus 2 of multiple gestation Monochorionic diamniotic twin gestation in second trimester 12/29/2024 12:59 PM EDT Scheduled Orders Name Type Priority Associated Diagnoses Orde r Schedule US MFM with or without consult Imaging Routine Intrauterine growth restriction affecting antepartum care of mother in second trimester, fetus 1 of multiple gestation Intrauterine growth restriction affecting antepartum care of mother in second trimester, fetus 2 of multiple gestation Monochorionic diamniotic twin gestation in second trimester Once for 1 Occurrences starting 12/29/2024 until 12/29/2024 documented as of this encounter Visit Diagnoses Diagnosis Intrauterine growth restriction affecting antepartum care of mother in second trimester, fetus 1 of multiple gestation Intrauterine growth restriction affecting antepartum care of mother in second trimester, fetus 2 of multiple gestation Monochorionic diamniotic twin gestation in second trimester documented in this encounter Care Teams Mba Internship Relationship Specialty Start Date End Date Belén Rooney MD [address] [place] [phone] PCP - General Family Medicine 09/29/18 documented as of this encounter
--- OUTSIDE RECORDS SUMMARY | 2024-12-29 13:00 | XMS_ITS | Encounter Summary ---
Author Organization [facility] tem Address [id number] [address] [place] [address] Care Team Providers Care Property Management Supervisor Name Role Phone Belén Rooney MD Primary Care Provider Reason for Visit * Reason Comments [place]ata[place]-di twins FGR both babies Velamentous cord insertion twin A Encounter Details Date Type Department Care Team (Late st Contact Info) Description 12/29/2024 1:00 PM EDT Office Visit Maternal- Medicine at [facility] [address] [place] [phone] Alex Subramanian MD [address] [facility], [address] [place] [id number] Social History Tobacco Use Types Packs/Day Years Used Date Smoking Tobacco: Never Smokeless Tobacco: Never Alcohol Use Standard Drinks/Week Comments Not Currently 0 (1 standard drink = 0.6 oz pur e alcohol) [facility] Utilities Answer Date Recorded In the past 12 months has e [employer], gas, oil, or water company threatened to [...] Sign Reading Time Taken Comments Blood Pressure 121/73 12/29/2024 11:16 AM EDT Pulse 89 12/29/2024 11:16 AM EDT Temperature - - Respiratory Rate - - Oxygen Saturation - - Inhaled Oxygen Concentration - - Weight 69.9 kg (154 lb 3.2 oz) 12/29/2024 11:16 AM EDT Height 157.5 cm (5' 2 ) 12/29/2024 11:16 AM EDT Body Mass Index 28.2 12/29/2024 11:16 AM EDT documented in this encounter Plan of Treatment Upcoming Encounters Date Type Department Care Team (Late st Contact Info) Description 01/06/2025 8:45 AM EDT Appointment [facility] US Imaging [address] [place] [address] 01/10/2025 8:30 AM EDT Office Visit Maternal- Medicine at [facility] [address] [place] [address] Jefferson Nava MD [address] [place] [address] 01/12/2025 9:00 AM EDT Appointment [facility] US Imaging [address] [place] [phone] documented as of this encounter Visit Diagnoses Not on filedocumented in this encounter Care Teams Property Management Supervisor Relationship Specialty Start Date End Date Belén Rooney MD [address] [place] [phone] PCP - General Family Medicine 09/29/18 documented as of this encounter
--- OUTSIDE RECORDS SUMMARY | 2024-12-30 08:11 | XMS_ITS | Encounter Summary ---
Author Organization [facility] tem Address [id number] [address] [place] [address] Care Team Providers Care Boat Hop Name Role Phone Belén Rooney MD Primary Care Provider [phone] Encounter Details Date Type Department Care Team (Latest Contact Info) Description 12/27/2024 Travel Social History Tobacco Use Types Packs/Day Years Used Date Smoking Tobacco: Never Smokeless Tobacco: Never Alcohol Use Standard Drinks/Week Comments Not Currently 0 (1 standard drink = 0.6 oz pur e alcohol) [facility] Utilities Answer Date Recorded In the [...] Info) Description 01/06/2025 8:45 AM EDT Appointment [facility] US Imaging [address] [place] [phone] 01/10/2025 8:30 AM EDT Office Visit Maternal- Medicine at [facility] [address] [place] [address] Jefferson Nava MD [address] [facility] [facility] [address] [place] [address] 01/12/2025 9:00 AM EDT Appointment [facility] US Imaging [address] [place] [phone] documented as of this encounter Visit Diagnoses Not on filedocumented in this encounter Care Teams Boat Hop Relationship Specialty Start Date End Date Belén Rooney MD [address] [place] [phone] PCP - General Family Medicine 09/29/18 documented as of this encounter
--- OUTSIDE RECORDS SUMMARY | 2024-12-30 08:12 | XMS_ITS | Encounter Summary ---
Author Organization [facility] Address [address] [place] [address] Care Team Providers Care Scenery Builder Name Role Phone Marlon Laguna MD Primary Care Provider [phone] Saul Eugene DO Unavailable Encounter Details Date Type Department Care Team (Late Contact Info) Description 03/03/2024 Orders Only [facility] [address] [place] [address] Gabrielle Mayer LPN [address] [place] [id number] Social History Tobacco Use Types Packs/Day Years [...] AM EDT Routine [facility] [address] [place] [address] Saul Eugene DO [address] [facility] [place] [address] 03/28/2025 2:00 PM EST Office Visit [facility] [address] [facility] [address] [place] [phone] Saul Eugene DO [address] [place] [address] documented as of this encounter Procedures Procedure Name Priority Date/Time Associated Diagnosis Comments PAP SMEAR Routine 02/23/2024 12:00 AM EDT documented in this encounter Results * Pap Smear (02/23/2024 12:00 AM EDT) Swab Cervical swab / Unknown us Saul Eugene DO LAB CYTOLOGY ORDERABLES Final Re sult EXTERNAL LAB documented in this encounter Visit Diagnoses Not on filedocumented in this encounter Care Teams Scenery Builder Relationship Specialty Start Date End Date Marlon Laguna MD [address] [facility] [place] [address] PCP - General Family Medicine 08/29/23 Saul Eugene DO [address] [place] [address] Referring Physician Obstetrics and Gynecology 08/16/24 documented as of this encounter
--- OUTSIDE RECORDS SUMMARY | 2024-12-30 08:12 | XMS_ITS | Encounter Summary ---
Author Organization [facility] tem Address [id number] [address] [place] [address] Care Team Providers Care Access Rn Name Role Phone Belén Rooney MD Primary Care Provider Encounter Details Date Type Department Care Team (Late st Contact Info) Description 11/04/2024 Orders Only Maternal- Medicine at [facility] [address] [facility] [place] [phone] Susan Beltran LPN Intrauterine growth restriction affecting [...] pur e alcohol) [facility] Utilities Answer Date Recorded In the past 12 months has [employer], gas, oil, or water company threatened [...] Info) Description 01/06/2025 8:45 AM EDT Appointment [facility] US Imaging [address] [place] [address] 01/10/2025 8:30 AM EDT Office Visit Maternal- Medicine at [facility] [address] [place] [address] Jefferson Nava MD [address], [address] [place] [address] 01/12/2025 9:00 AM EDT Appointment [facility] US Imaging [address] [place] [address] documented as of this encounter Procedures Procedure [...] Palpitations documented in this encounter Care Teams Access Rn Relationship Specialty Start Date End Date Belén Rooney MD [address] [place] [phone] PCP - General Family Medicine 09/29/18 documented as of this encounter
--- OUTSIDE RECORDS SUMMARY | 2024-12-30 08:12 | XMS_ITS | Encounter Summary ---
Author Organization [facility] tem Address [id number] [address] [place] [address] Care Team Providers Care Special Needs Bus Driver Name Role Phone Belén Rooney MD Primary Care Provider [phone] Reason for Referral * Diagnostic Imaging (Routine) - Pending Review Specialty Diagnoses / Procedures Referred By Burt sellers Referred To Contact Maternal and Medicine Diagnoses Monochorionic diamniotic twin gestation in second trimester Procedures US [facility] with or without consult Benjamin Subramanian MD [address] [address] Phone: tel: fax: Maternal- Medicine at [facility] [address] [place] [address] Phone: tel: fax: Referral ID Status Reason Start Date Expiration Date V isits Requested Visits Authorized [id number] Pending Review 10/13/2024 10/13/2025 1 1 Encounter Details Date Type Department Care Team (Late st Contact Info) Description 10/13/2024 Orders Only Maternal- Medicine at [facility] [address] [place] [phone] Brooklyn Campos RN Monochorionic diamniotic twin gestation [...] Info) Description 01/06/2025 8:45 AM EDT Appointment [facility] US Imaging [address] [place] [phone] 01/10/2025 8:30 AM EDT Office Visit Maternal- Medicine at [facility] [address] [place] [address] Jefferson Nava MD [address], [address] [place], [place] [phone] 01/12/2025 9:00 AM EDT Appointment [facility] US Imaging [address] [place] [address] documented as of this encounter Results * US MFM LMTD OB, 1 OR MORE FETUS (11/22/2024 9:53 AM EDT) Anatomical Region Laterality Modality OB-STEAM PAN SPONGER Ultrasound 11/22/2024 8:10 AM EDT Narrative 11/22/2024 10:59 AM EDT NAME: ALIVIA HARTMAN : 1995 SEX: F Accession Number: [id number] ORDERING PHYSICIAN: BENJAMIN SUBRAMANIAN REFERRING PHYSICIAN: VIC MCKEON Coding ----- --------- Procedures 89064: Limited OB / NATHAN, 1 or More Fetuses 76740: Doppler velocimetry, ; umbilical artery. 2 73143: Doppler velocimetry, ; middle cerebral artery. 2 78806: Doppler Ductus Venosus. 2 Indication ----- --------- [place]-Di twin , IUGR-Poor growth-twin A, Pre term contractions, Supervision of high risk (elevated Doppler - Twin B) History ----- --------- OB History 1. Para 0 [id number] Maternal Assessment ----- --------- Physical Exam Height [...] view. RVOT view. LVOT view. 3-vessel view. 4-ndusji-auhbpde view. Situs. Bicaval view. Cardiac position. Cardiac [...] PI 1.34 4% Ebbing RI 0.76 39% Bannerlmann PS 29.59 cm/s PS 0.97 MoM ED [...] HARTMAN : 1995 SEX: F Accession Number: [id number] ORDERING PHYSICIAN: BENJAMIN SUBRAMANIAN REFERRING PHYSICIAN: VIC MCKEON Coding ----- --------- Procedures 36710: Limited OB / NATHAN, 1 or More Fetuses 22914: Doppler velocimetry, ; umbilical artery. 2 19095: Doppler velocimetry, ; middle cerebral artery. 2 89658: Doppler Ductus Venosus. 2 Indication ----- --------- [place]-Di twin , IUGR-Poor growth-twin A, Pre termcontractions, Supervision of high risk (elevated Doppler - Twin B) History ----- --------- OB History 1. Para 0 [id number] Maternal Assessment ----- --------- Physical Exam Height [...] 4-chamber view. RVOT view. LVOT view. 3-vessel view.3-ccqnrh-zzswijy view. Situs. Bicaval view. Cardiac position. Cardiac [...] byprimary OB provider unless otherwise specified by [facility]. Results forwarded to ordering provider so they can follow up with thepatient as necessary. us Benjamin Subramanian MD [facility] ORDERABLES Final Re sult documented in this encounter Visit Diagnoses Diagnosis Monochorionic diamniotic twin gestation in second trimester- Primary Monochorionic diamniotic twin gestation in second trimester documented in this encounter Care Teams Special Needs Bus Driver Relationship Specialty Start Date End Date Belén Rooney MD [address] [place] [phone] PCP - General Family Medicine 09/29/18 documented as of this encounter
--- OUTSIDE RECORDS SUMMARY | 2024-12-30 08:13 | XMS_ITS | Encounter Summary ---
Author Organization [facility] Address [address] [place] [address] Care Team Providers Care Bobbin Cleaner Name Role Phone Marlon Laguna MD Primary Care Provider [phone] Saul Eugene DO Unavailable Encounter Details Date Type Department Care Team (Late st Contact Info) Description 08/16/2024 Abstract [facility] [address] [place] [phone] Saul Eugene DO [address] [place], [facility] Social History Tobacco Use Types Packs/Day [...] [facility] PAL[facility] [address] [place] [address] Saul Eugene DO [address] [place] [address] 03/28/2025 2:00 PM EST Office Visit [facility] [address] [facility] [place] [address] Saul Eugene DO [address] [facility] [place] [address] documented as of this encounter Goals Goal Patient Goal Type Associated Problems Recent Progress Patient-Stated? Author Reminders Care Plan OB Reminders No Open Scheduling, Background documented as of this encounter Visit Diagnoses Not on filedocumented in this encounter Additional Health Concerns Active Problems Noted Date Diagnosed Date OB Reminders 08/14/2024 documented as of this encounter Care Teams Bobbin Cleaner Relationship Specialty Start Date End Date Marlon Laguna MD [address] [facility] [place] [address] PCP - General Family Medicine 08/29/23 Saul Eugene DO [address] [place] [address] Referring Physician Obstetrics and Gynecology 08/16/24 documented as of this encounter
--- OUTSIDE RECORDS SUMMARY | 2024-12-30 08:13 | XMS_ITS | Encounter Summary ---
Author Organization [facility] Address [address] [place] [address] Care Team Providers Care Er Nurse Name Role Phone Marlon Laguna MD Primary Care Provider [phone] Saul Eugene DO Unavailable Encounter Details Date Type Department Care Team (Late st Contact Info) Description 08/16/2024 Abstract [facility] PAL[facility] [address] [place] [phone] Salu Eugene DO [address] [place], [facility] Social History Tobacco Use Types Packs/Day Years [...] PALMER [address] [place] [address] Saul Eugene DO [address] [place] [address] 03/28/2025 2:00 PM EST Office Visit [facility] [address] [facility] [place] [address] Saul Eugene DO [address] [facility] [place] [address] documented as of this encounter Goals Goal Patient Goal Type Associated Problems Recent Progress Patient-Stated? Author Reminders Care Plan OB Reminders No Open Scheduling, Background documented as of this encounter Visit Diagnoses Not on filedocumented in this encounter Additional Health Concerns Active Problems Noted Date Diagnosed Date OB Reminders 08/14/2024 documented as of this encounter Care Teams Er Nurse Relationship Specialty Start Date End Date Marlon Laguna MD [address] [facility] [place] [address] PCP - General Family Medicine 08/29/23 Saul Eugene DO [address] [place] [address] Referring Physician Obstetrics and Gynecology 08/16/24 documented as of this encounter
--- OUTSIDE RECORDS SUMMARY | 2024-12-30 08:13 | XMS_ITS | Encounter Summary ---
Author Organization [facility] Address [address] [place] [address] Care Team Providers Care Asp Net Programmer Name Role Phone Marlon Laguna MD Primary Care Provider [phone] Saul Eugene DO Unavailable Encounter Details Date Type Department Care Team (Late st Contact Info) Description 08/16/2024 Abstract [facility] PAL[facility] [address] [place] [phone] Saul Eugene DO [address] [place], [facility] Social History Tobacco Use Types Packs/Day [...] [facility] [address] [place] [address] Saul Eugene DO [address] [place] [address] 03/28/2025 2:00 PM EST Office Visit [facility] [address] [facility] [phone] Saul Eugene DO [address] [facility] [place] [address] documented as of this encounter Goals Goal Patient Goal Type Associated Problems Recent Progress Patient-Stated? Author Reminders Care Plan OB Reminders No Open Scheduling, Background documented as of this encounter Visit Diagnoses Not on filedocumented in this encounter Additional Health Concerns Active Problems Noted Date Diagnosed Date OB Reminders 08/14/2024 documented as of this encounter Care Teams Asp Net Programmer Relationship Specialty Start Date End Date Marlon Laguna MD [address] [place] [address] PCP - General Family Medicine 08/29/23 Saul Eugene DO [address] [place] [address] Referring Physician Obstetrics and Gynecology 08/16/24 documented as of this encounter
--- OUTSIDE RECORDS SUMMARY | 2024-12-30 08:13 | XMS_ITS | Encounter Summary ---
Author Organization [facility] tem Address [id number] [address] [place] [address] Care Team Providers Care Sap Sd Analyst Name Role Phone Belén Rooney MD Primary Care Provider [phone] Encounter Details Date Type Department Care Team (Late st Contact Info) Description 12/06/2024 Orders Only Maternal- Medicine at [facility] [address] [place] [address] Ref Prov, [place] [address] Social History Tobacco Use Types Packs/Day Years Used Date Smoking Tobacco: Never Smokeless Tobacco: Never Alcohol Use Standard Drinks/Week Comments Not Currently 0 (1 standard drink = 0.6 oz pur e alcohol) [facility] Utilities Answer Date Recorded In the past 12 months has [employer], gas, oil, or water [employer] threatened to shut off services in your [...] Info) Description 01/06/2025 8:45 AM EDT Appointment [facility] US Imaging [address] [place] [address] 01/10/2025 8:30 AM EDT Office Visit Maternal- Medicine at [facility] [address] [place] [address] Jefferson Nava MD [address], [address] [place] [address] 01/12/2025 9:00 AM EDT Appointment [facility] US Imaging [address] [place] [address] documented as of this encounter Procedures Procedure [...] on filedocumented in this encounter Care Teams Sap Sd Analyst Relationship Specialty Start Date End Date Belén Rooney MD [address] [place] [address] PCP - General Family Medicine 09/29/18 documented as of this encounter
--- OUTSIDE RECORDS SUMMARY | 2024-12-30 08:14 | XMS_ITS | Encounter Summary ---
Author Organization [facility] Address [address] [place] [address] Care Team Providers Care Drill Punch Operator Name Role Phone Marlon Laguna MD Primary Care Provider [phone] Saul Eugene DO Unavailable Encounter Details Date Type Department Care Team (Late st Contact Info) Description 12/01/2024 Abstract [facility] [place] [facility] [address] [place] [address] Ximena Aly MA Social History Tobacco [...] EDT Routine [facility] [address] [place] [address] Saul Eugene DO [address] [place] [address] 03/28/2025 2:00 PM EST Office Visit [facility] [place] [facility] [address] [place] [phone] Saul Eugene DO [address] [place] [address] documented as of this encounter Goals Goal Patient Goal Type Associated Problems Recent Progress Patient-Stated? Author Reminders Care Plan OB Reminders No Open Scheduling, Background documented as of this encounter Visit Diagnoses Not on filedocumented in this encounter Additional Health Concerns Active Problems Noted Date Diagnosed Date OB Reminders 08/14/2024 documented as of this encounter Care Teams Drill Punch Operator Relationship Specialty Start Date End Date Marlon Laguna MD [address] [place] [phone] PCP - General Family Medicine 08/29/23 Saul Eugene DO [address] [place] [address] Referring Physician Obstetrics and Gynecology 08/16/24 documented as of this encounter
--- OUTSIDE RECORDS SUMMARY | 2024-12-30 08:14 | XMS_ITS | Encounter Summary ---
Author Organization [facility] Address [address] [place] [address] Care Team Providers Care Grounds Restoration Specialist Name Role Phone Marlon Laguna MD Primary Care Provider [phone] Saul Eugene DO Unavailable Encounter Details Date Type Department Care Team (Late st Contact Info) Description 12/06/2024 Abstract [facility] [address] [place] [phone] Saul Eugene DO [address] [place], [facility] Social History Tobacco Use Types Packs/Day [...] PALMER [address] [place] [address] Saul Eugene DO [address] [place] [address] 03/28/2025 2:00 PM EST Office Visit [facility] [place] [facility] [address] [place] [address] Saul Eugene DO [address] [facility] [place] [address] documented as of this encounter Goals Goal Patient Goal Type Associated Problems Recent Progress Patient-Stated? Author Reminders Care Plan OB Reminders No Open Scheduling, Background documented as of this encounter Visit Diagnoses Not on filedocumented in this encounter Additional Health Concerns Active Problems Noted Date Diagnosed Date OB Reminders 08/14/2024 documented as of this encounter Care Teams Grounds Restoration Specialist Relationship Specialty Start Date End Date Marlon Laguna MD [address] [facility] [place] [address] PCP - General Family Medicine 08/29/23 Saul Eugene DO [address] [place] [address] Referring Physician Obstetrics and Gynecology 08/16/24 documented as of this encounter
--- OUTSIDE RECORDS SUMMARY | 2024-12-30 08:14 | XMS_ITS | Encounter Summary ---
Author Organization [facility] [facility] tem Address [id number] [address] [place] [address] Care Team Providers Care Defect Repairer Glassware Name Role Phone Belén Rooney MD Primary Care Provider [phone] Encounter Details Date Type Department Care Team (Latest Contact Info) Description 12/18/2024 Travel Social History Tobacco Use Types Packs/Day Years Used Date Smoking Tobacco: Never Smokeless Tobacco: Never Alcohol Use Standard Drinks/Week Comments Not Currently 0 (1 standard drink = 0.6 oz pur e alcohol) [facility] Utilities Answer Date Recorded In [...] Appointment [facility] Imaging [address] [place] [phone] 01/10/2025 8:30 AM EDT Office Visit Maternal- Medicine at [facility] [address] [place] [address] Jefferson Nava MD [address] [facility], [address] [place] [address] 01/12/2025 9:00 AM EDT Appointment [facility] [address] [place] [phone] documented as of this encounter Visit Diagnoses Not on filedocumented in this encounter Care Teams Defect Repairer Glassware Relationship Specialty Start Date End Date Belén Rooney MD [address] [place] [phone] PCP - General Family Medicine 09/29/18 documented as of this encounter
--- OUTSIDE RECORDS SUMMARY | 2024-12-30 08:15 | XMS_ITS | Encounter Summary ---
Author Organization [facility] Address [address] [place] [address] Care Team Providers Care Software Test Specialist Name Role Phone Marlon Laguna MD Primary Care Provider [phone] Saul Eugene DO Unavailable Encounter Details Date Type Department Care Team (Late st Contact Info) Description 09/28/2024 Abstract [facility] [address] [place] [phone] Saul Eugene DO [address] [place], [facility]11 Social History Tobacco Use Types [...] [facility] [address] [place] [address] Saul Eugene DO [address] [place] [address] 03/28/2025 2:00 PM EST Office Visit [facility] [address] [facility] [place] [address] Saul Eugene DO [address] [facility] [place] [address] documented as of this encounter Goals Goal Patient Goal Type Associated Problems Recent Progress Patient-Stated? Author Reminders Care Plan OB Reminders No Open Scheduling, Background documented as of this encounter Visit Diagnoses Not on filedocumented in this encounter Additional Health Concerns Active Problems Noted Date Diagnosed Date OB Reminders 08/14/2024 documented as of this encounter Care Teams Software Test Specialist Relationship Specialty Start Date End Date Marlon Laguna MD [address] [facility] [place] [address] PCP - General Family Medicine 08/29/23 Saul Eugene DO [address] [place] [address] Referring Physician Obstetrics and Gynecology 08/16/24 documented as of this encounter
--- OUTSIDE RECORDS SUMMARY | 2024-12-30 08:15 | XMS_ITS | Encounter Summary ---
Author Organization [facility] [employer] [facility] tem Address [id number] [address] [place] [address] Care Team Providers Care Content Assistant Name Role Phone Belén Rooney MD Primary Care Provider Encounter Details Date Type Department Care Team (Late st Contact Info) Description 11/23/2024 Orders Only Maternal- Medicine at [facility] [address] [facility] [place] [phone] Susan Beltran LPN Monochorionic diamniotic twin gestation [...] = 0.6 oz pur e alcohol) [facility] Utilities Answer Date Recorded In the past 12 months has [employer] electric, gas, oil, or water company threatened [...] 01/06/2025 8:45 AM EDT Appointment [facility] Imaging [address] [place] [phone] 01/10/2025 8:30 AM EDT Office Visit Maternal- Medicine at [facility] [address] [place] [address] Jefferson Nava MD [address] [place] [address] 01/12/2025 9:00 AM EDT Appointment [facility] [address] [place] [address] documented as of this encounter Procedures Procedure [...] Palpitations documented in this encounter Care Teams Content Assistant Relationship Specialty Start Date End Date Belén Rooney MD [address] [place] [phone] PCP - General Family Medicine 09/29/18 documented as of this encounter
--- OUTSIDE RECORDS SUMMARY | 2024-12-30 08:15 | XMS_ITS | Encounter Summary ---
Author Organization [facility] Address [address] [place] [address] Care Team Providers Care Environmental Services Director Name Role Phone Marlon Laguna MD Primary Care Provider [phone] Vic Eugene DO Unavailable Encounter Details Date Type Department Care Team (Late st Contact Info) Description 12/28/2024 Clinisync Result Encounter [facility] External Department Unsolicited Vic Eugene, [address] [place], [place] [phone] Social History Tobacco Use Types Packs/Day Years [...] AM EDT Routine [facility] [place] [facility] [address] [place] [address] Vic Eugene, DO [address] [facility] [place] [address] 03/28/2025 2:00 PM EST Office Visit [facility] [place] [facility] [address] [place] [phone] Vic Eugene, DO [address] [facility] [place] [address] documented as of this encounter Goals Goal Patient Goal Type Associated Problems Recent Progress Patient-Stated? Author Reminders Care Plan OB Reminders No Open Scheduling, Background documented as of this encounter Procedures Procedure Name Priority Date/Time Associated Diagnosis Comments US OB BPP W NON-STRESS 12/28/2024 3:38 PM EDT documented in this encounter Results * US OB BPP W NON-STRESS (12/28/2024 3:38 PM EDT) Anatomical Region Laterality Modality Other 12/28/2024 3:38 PM EDT Narrative 12/28/2024 3:41 PM EDT The [address] [address] Ultrasound Report Signed Patient: MINNIE BUNCH MR#: [id number] : 1995 Acct:[id number] Age/Sex: 29 / F ADM Date: 12/28/24 Loc: US Attending Dr: Vic Eugene D.O. Ordering Physician: Vic Eugene D.O. Date of Service: 12/28/24 Procedure(s): US OB BPP w non-stress Accession Number(s): [id number] cc: Vic Eugene D.O.; Marlon Laguna M.D. The [address] [address] Patient Name: MINNIE BUNCH MRN: [id number] date: 1995 Sex: F Assigned Patient Location: [facility] Current Patient Location: Accession/Order Number: [id number] Exam Date: 12/28/2024 15:37 Report Date: 12/28/2024 15:38 At the request of: VIC EUGENE DO Procedure: US OB BPP w non-stress Biophysical profile. Reason for exam: Twin COMPARISON: 12/24/2024 TECHNIQUE: The central sterile technician reports a fetus A BPP of 8 out of 8. MVP is 4.8 cm. heart rate 141 bpm. The central sterile technician reports fetus B BPP of 8 out of 8. MVP is 5.7 cm. heart rate 150 bpm. US/US OB BPP w non-stress IMPRESSION: BPP 8out of 8 for Fetus A. BPP 8 out of 8 for fetus B. Impression dictated by: Barrington Spears Jr., D.O. 12/28/2024 3:38 PM Dictation Location: [place] [address] Electronically authenticated by: [id number] Y Date: 12/28/2024 15:38 Dictated By: Barrington Spears M.D. Signed By: 12/28/24 1541 DD/ 1538 TD/TT: Motorcycle Delivery Driver: Procedure Note Radiology, Radiologist, - 12/28/2024 [place] [address] Ultrasound Report Signed Patient: MINNIE BUNCH AMR#: [id number] : 1995Acct:[id number] Age/Sex: 29 / FADM Date: 12/28/24 Loc: US Attending Dr: Vic Eugene D.O. Ordering Physician: Vic Eugene D.O. Date of Service: 12/28/24 Procedure(s): US OB BPP w non-stress Accession Number(s): [id number] cc: Vic Eugene D.O.; Marlon Laguna M.D. The [place] [address] Patient Name: MINNIE BUNCH MRN: [facility]:[id number] date: 1995 Sex: F Assigned Patient Location: [facility] Current Patient Location: Accession/Order Number: [id number] Exam Date: 12/28/2024 15:37 Report Date: 12/28/2024 15:38 At the request of: VIC EUGENE DO Procedure: US OB BPP w non-stress Biophysical profile. Reason for exam: Twin COMPARISON: 12/24/2024 TECHNIQUE: The central sterile technician reports a fetus A BPP of 8 out of 8. MVP is4.8 cm. heart rate 141 bpm. The central sterile technician reports fetus B BPP of 8 out of 8. MVP is 5.7 cm. heart rate 150 bpm. US/US OB BPP w non-stress IMPRESSION: BPP 8out of 8 for Fetus A. BPP 8 out of 8 for fetus B. Impression dictated by: Barrington Spears Jr., D.O. 12/28/2024 3:38 PM Dictation Location: [place] [address] Electronically authenticated by: [id number] Y Date: 5:38 Dictated By: Barrington Spears M.D. Signed By:12/28/24 1541 DD/ 1538 TD/TT: Motorcycle Delivery Driver: Vic Eugene DO [facility] Final Result documented in this encounter Visit Diagnoses Not on filedocumented in this encounter Additional Health Concerns Active Problems Noted Date Diagnosed Date OB Reminders 08/14/2024 documented as of this encounter Care Teams Environmental Services Director Relationship Specialty Start Date End Date Marlon Laguna MD [address] [place] [address] PCP - General Family Medicine 08/29/23 Vic Eugene DO [address] [place] [address] [place] [address] Referring Physician Obstetrics and Gynecology 08/16/24 documented as of this encounter
--- OUTSIDE RECORDS SUMMARY | 2024-12-30 08:15 | XMS_ITS | Encounter Summary ---
Author Organization [facility] Address [address] [place] [address] Care Team Providers Care Asphalt Surface Heater Operator Name Role Phone Marlon Laguna MD Primary Care Provider [phone] Saul Eugene DO Unavailable Encounter Details Date Type Department Care Team (Late st Contact Info) Description 09/27/2024 Abstract [facility] [address] [place] [phone] Saul Eugene DO [address] [place], [facility]11 Social History Tobacco Use Types Packs/Day [...] [facility] [address] [place] [address] Saul Eugene DO [address] [place] [address] 03/28/2025 2:00 PM EST Office Visit [facility] [place] [facility] [address] [facility] [place] [phone] Saul Eugene DO [address] [facility] [place] [address] documented as of this encounter Goals Goal Patient Goal Type Associated Problems Recent Progress Patient-Stated? Author Reminders Care Plan OB Reminders No Open Scheduling, Background documented as of this encounter Visit Diagnoses Not on filedocumented in this encounter Additional Health Concerns Active Problems Noted Date Diagnosed Date OB Reminders 08/14/2024 documented as of this encounter Care Teams Asphalt Surface Heater Operator Relationship Specialty Start Date End Date Marlon Laguna MD [address] [facility] [place] [address] PCP - General Family Medicine 08/29/23 Saul Eugene DO [address] [place] [address] Referring Physician Obstetrics and Gynecology 08/16/24 documented as of this encounter
--- OUTSIDE RECORDS SUMMARY | 2024-12-30 08:15 | XMS_ITS | Clinical Summary ---
Author Organization Dryad tem Address [id number] [address] [place] [address] Care Team Providers Care Merchandise Execution Leader Name Role Phone Belén Rooney MD Primary Care Provider [phone] Allergies No known active allergies Medications PIRMELLA [...] total) by mouth in the morning. Active magnesium oxide (MAGOX) 400 mg tablet Take 1 tablet (400 mg total) by mouth before bedtime. Active Active Problems Problem Noted Date Diagnosed Date Monochorionic diamniotic twin gestation in secon d trimester 11/15/2024 uterine contractions 11/07/2024 Trigeminal neuralgia 04/11/2022 Estimated Date of Delivery Comme nts Yes 03/15/2025 Based on last me nstrual period of 06/08/2024 Encounters Date Type Department Care Team Description 12/29/2024 1:00 PM EDT Office Visit Maternal- Medicine at [facility] [address] [place] [address] Alex Subramanian MD 12/29/2024 10:47 AM EDT - 12/29/2024 11:59 PM EDT Hospital Encounter [facility] - [facility] US Imaging [address] [place] [address] Intrauterine growth restriction affecting antepartum care of mother in second trimester, fetus 1 of multiple gestation; Intrauterine growth restriction affecting antepartum care of mother in second trimester, fetus 2 of multiple gestation; Monochorionic diamniotic twin gestation in second trimester Discharge Disposition: Home 12/29/2024 Orders Only Maternal- Medicine at [facility] [address] [place] [address] Tressa Das RN Intrauterine growth restriction affecting antepartum care of mother in second trimester, fetus 1 of multiple gestation (Primary Dx); Monochorionic diamniotic twin gestation in second trimester; Velamentous insertion of umbilical cord in third trimester 12/29/2024 Orders Only Maternal- Medicine at [facility] [address] [place] [address] Tressa Das RN Intrauterine growth restriction affecting antepartum care of mother in second trimester, fetus 1 of multiple gestation (Primary Dx); Monochorionic diamniotic twin gestation in second trimester; Velamentous insertion of umbilical cord in third trimester 12/27/2024 Travel 12/20/2024 2:54 PM EDT - 12/20/2024 11:59 PM EDT Hospital Encounter [facility] - [facility] US Imaging [address] [place] [address] Intrauterine growth restriction affecting antepartum care of mother in second trimester, fetus 1 of multiple gestation; Intrauterine growth restriction affecting antepartum care of mother in second trimester, fetus 2 of multiple gestation; Monochorionic diamniotic twin gestation in second trimester Discharge Disposition: Home 12/18/2024 Travel 12/13/2024 3:15 PM EDT - 12/13/2024 11:59 PM EDT Hospital Encounter [facility] - [facility] US Imaging [address] [place] [address] Intrauterine growth restriction affecting antepartum care of mother in second trimester, fetus 1 of multiple gestation; Intrauterine growth restriction affecting antepartum care of mother in second trimester, fetus 2 of multiple gestation; Monochorionic diamniotic twin gestation in second trimester Discharge Disposition: Home 12/11/2024 Travel 12/08/2024 Orders Only Maternal- Medicine at [facility] [address] [place] [address] Geeta Jacobs RN Intrauterine growth restriction affecting antepartum care of mother in second trimester, fetus 1 of multiple gestation (Primary Dx); Intrauterine growth restriction affecting antepartum care of mother in second trimester, fetus 2 of multiple gestation; Monochorionic diamniotic twin gestation in second trimester 12/07/2024 Telephone Maternal- Medicine at [facility] [address] [place] [place] [address] Susan Beltran LPN 12/06/2024 9:45 AM EDT Office Visit Maternal- Medicine at [facility] [address] [place] [place] [address] Blaise Tse MD Intrauterine growth restriction affecting [...] - 12/06/2024 11:59 PM EDT Hospital Encounter [facility] - [facility] US Imaging [address] [place] [address] Vasa previa, fetus 1 of multiple gestation; Intrauterine growth restriction affecting antepartum care of mother in second trimester, fetus 1; Monochorionic diamniotic twin gestation in second trimester Discharge Disposition: Home 12/06/2024 Orders Only Maternal- Medicine at [facility] [address] [place] [address] Ref Prov, Not In System 12/04/2024 Travel 12/01/2024 Orders Only Maternal- Medicine at [facility] [address] [facility] [place] [phone] Arleth Jefferson, MOHINDER Vasa previa, fetus 1 of multiple gestation (Primary Dx); Intrauterine growth restriction affecting antepartum care of mother in second trimester, fetus 1; Monochorionic diamniotic twin gestation in second trimester 11/29/2024 2:56 PM EDT - 11/29/2024 11:59 PM EDT Hospital Encounter [facility] - [facility] US Imaging [address] [facility] [place] [address] Monochorionic diamniotic twin , antepartum; IUGR (intrauterine growth restriction) affecting care of mother, second trimester, not applicable or unspecified fetus Discharge Disposition: Home 11/27/2024 Travel 11/23/2024 Orders Only Maternal- Medicine at [facility] [address] [place] [address] Susan Beltran LPN Monochorionic diamniotic twin gestation in second trimester; Intrauterine growth restriction affecting antepartum care of mother in second trimester, fetus 1; Velamentous insertion of umbilical cord in second trimester; Vasa previa, fetus 1 of multiple gestation; Palpitations 11/23/2024 Orders Only Maternal- Medicine at [facility] [address] [place] [address] Susan Beltran LPN Monochorionic diamniotic twin gestation in second trimester (Primary Dx); Intrauterine growth restriction affecting antepartum care of mother in second trimester, fetus 1; Velamentous insertion of umbilical cord in second trimester; Vasa previa, fetus 1 of multiple gestation; Palpitations 11/23/2024 Telephone Maternal- Medicine at [facility] [address] [place] [address] Susan Beltran LPN 11/22/2024 7:59 AM EDT - 11/22/2024 11:59 PM EDT Hospital Encounter [facility] - [facility] US Imaging [address] [place] [address] Monochorionic diamniotic twin gestation in second trimester Discharge Disposition: Home 11/20/2024 Travel 11/17/2024 Telephone Maternal- Medicine at [facility] [address] [place] [address] Jefferson Nava MD 11/15/2024 2:30 PM EDT Office Visit Maternal- Medicine at [facility] [address] [place] [address] Jefferson Nava MD Monochorionic diamniotic twin gestation in second trimester (Primary Dx) 11/15/2024 12:47 PM EDT - 11/15/2024 11:59 PM EDT Hospital Encounter [facility] - [facility] US Imaging [address] [place] [address] Encounter for other screening follow-up; Monochorionic diamniotic twin gestation in second trimester Discharge Disposition: Home 11/13/2024 Travel 11/08/2024 9:42 AM EDT - 11/08/2024 11:59 PM EDT Hospital Encounter [facility] - [facility] US Imaging [address] [place] [address] Discharge Disposition: Home 11/08/2024 Telephone [facility] [address] [place] [address] Services, [facility]'s 11/07/2024 9:04 AM EDT - 11/07/2024 11:59 PM EDT Hospital Encounter [facility] - [facility] US Imaging [address] [place] [address] Discharge Disposition: Home 11/07/2024 6:22 AM EDT - 11/08/2024 2:17 PM EDT Hospital Encounter [facility] - GEN 3 Antepartum [address] [facility] [place] [phone] Farshad Negro MD Discharge Disposition: Home 11/07/2024 Travel 11/04/2024 Orders Only Maternal- Medicine at [facility] [address] [place] [address] Susan Beltran LPN Intrauterine growth restriction affecting antepartum care of mother in second trimester, fetus 1; Velamentous insertion of umbilical cord in second trimester; Monochorionic diamniotic twin gestation in second trimester; Vasa previa, fetus 1 of multiple gestation; Palpitations 11/04/2024 Orders Only Maternal- Medicine at [facility] [address] [place] [address] Susan Beltran LPN Intrauterine growth restriction affecting antepartum care of mother in second trimester, fetus 1 (Primary Dx); Velamentous insertion of umbilical cord in second trimester; Monochorionic diamniotic twin gestation in second trimester; Vasa previa, fetus 1 of multiple gestation; Palpitations 11/04/2024 Telephone Maternal- Medicine at [facility] [address] [place] [address] Susan Beltran LPN 11/01/2024 12:49 PM EDT - 11/01/2024 11:59 PM EDT Hospital Encounter [facility] - [facility] US Imaging [address] [place] [address] Monochorionic diamniotic twin gestation in second trimester Discharge Disposition: Home 11/01/2024 Travel 10/30/2024 Travel 10/26/2024 11:30 AM EDT Office Visit Maternal- Medicine at [facility] [address] [place] [address] Blaise Tse MD Intrauterine growth restriction affecting antepartum care of mother in second trimester, fetus 1 (Primary Dx); 20 weeks gestation of ; Velamentous insertion of umbilical cord in second trimester; Monochorionic diamniotic twin gestation in second trimester; Vasa previa, fetus 1 of multiple gestation 10/26/2024 9:00 AM EDT - 10/26/2024 11:59 PM EDT Hospital Encounter [facility] - [facility] US Imaging [address] [place] [address] Palpitations; Monochorionic diamniotic twin gestation in second trimester Discharge Disposition: Home 10/24/2024 Travel 10/13/2024 Orders Only Maternal- Medicine at [facility] [address] [place] [address] Brooklyn Campos RN Monochorionic diamniotic twin gestation in second trimester (Primary Dx) 10/11/2024 3:29 PM EDT - 10/11/2024 11:59 PM EDT Hospital Encounter [facility] - [facility] US Imaging [address] [place] [address] Palpitations; Monochorionic diamniotic twin gestation in second trimester Discharge Disposition: Home 10/10/2024 Travel 10/04/2024 4:45 PM EDT - 10/04/2024 11:59 PM EDT Hospital Encounter [facility] - Cardiovascular [address] [place] [address] Palpitations Discharge Disposition: Home 10/04/2024 Travel 10/01/2024 Telephone Maternal- Medicine at [facility] [address] [place] [address] Susan Beltran LPN 10/01/2024 Telephone Maternal- Medicine at [facility] [address] [facility] [place] [address] Susan Beltran LPN from Last 3 Months Family History Medical [...] alcohol) [facility] Utilities Answer Date Recorded In the past 12 months has th e [employer], gas, oil, or water miiCard threatened to shut off services in your [...] Pulse 89 12/29/2024 11:16 AM EDT Temperature 37 C (98.6 F) 11/08/2024 8:30 AM EDT Respiratory Rate 14 11/08/2024 8:30 AM EDT Oxygen Saturation 100% 02/04/2019 10:34 AM EDT Inhaled Oxygen Concentration - - Weight 69.9 kg (154 lb 3.2 oz) 12/29/2024 11:16 AM EDT Height 157.5 cm (5' 2 ) 12/29/2024 11:16 AM EDT Body Mass Index 28.2 12/29/2024 11:16 AM EDT Plan of Treatment Upcoming Encounters Date Type Department Care Team (Late st Contact Info) Description 01/06/2025 8:45 AM EDT Appointment [facility] US Imaging [address] [place] [address] 01/10/2025 8:30 AM EDT Office Visit Maternal- Medicine at [facility] [address] [place] [address] Jefferson Nava MD [address] [facility] [address] [place] [address] 01/12/2025 9:00 AM EDT Appointment [facility] US Imaging [address] [address] Health Maintenance Due Date Last Done Comments Depression Screening 2007 Adult BMI Follow Up Plan 08/06/2013 DTaP,Tdap and Td Vaccines (7 - Td or Tdap) 04/26/2023 04/26/2013, 08/28/2000, 12/27/1996, Additional history exists Influenza Vaccine 01/24/2025 03/09/2019, , 03/05/2017, Additional history exists Adult BMI Screening 12/29/2025 12/29/2024 Tobacco Screening 12/29/2025 12/29/2024 Pap Smear 09/24/2027 09/23/2024, 02/23/2024 Medical Devices [...] twin gestation in second trimester US MFM OB FOLLOW-UP, 1 FETUS Routine 12/06/2024 10:02 [...] twin gestation in second trimester US MFM OB FOLLOW-UP, 1 FETUS Routine [...] diamniotic twin gestation in second trimester US [facility] COMPREHENSIVE ANATOMIC SURVEY Routine 10/26/2024 12:47 [...] 12-LEAD Routine 10/04/2024 5:06 PM EDT Palpitations from Last 3 Months Results * US MFM LMTD OB, 1 OR MORE FETUS (12/20/2024 3:58 PM EDT) Only the most recent of11 resultswithin the time period is included. Anatomical Region Laterality Modality OB-HAND PAINTER Ultrasound 12/20/2024 3:17 PM EDT Narrative 12/20/2024 4:11 PM EDT NAME: ALIVIA HARTMAN MANOJ : 1995 SEX: F Accession Number: [id number] ORDERING PHYSICIAN: BLAISE TSE REFERRING PHYSICIAN: VIC MCKEON Coding ----- --------- Procedures 53644: Limited OB / NATHAN, 1 or More Fetuses 36426: Doppler velocimetry, ; umbilical artery. 2 55239: Doppler velocimetry, ; middle cerebral artery. 2 54844: Doppler Ductus Venosus. 2 Indication ----- --------- Starr-Di twin , IUGR-Poor growth-twin A & B, Pre term contractions, Supervision of high risk History ----- --------- OB History 1. Para 0 [id number] Maternal Assessment ----- --------- Physical Exam Height [...] HARTMAN : 1995 SEX: F Accession Number: [id number] ORDERING PHYSICIAN: BLAISE TSE REFERRING PHYSICIAN: VIC MCKEON Coding ----- --------- Procedures 56657: Limited OB / NATHAN, 1 or More Fetuses 73497: Doppler velocimetry, ; umbilical artery. 2 29058: Doppler velocimetry, ; middle cerebral artery. 2 66568: Doppler Ductus Venosus. 2 Indication ----- --------- Starr-Di twin , IUGR-Poor growth-twin A & B, Pre termcontractions, Supervision of high risk History ----- --------- OB History 1. Para 0 [id number] Maternal Assessment ----- --------- Physical Exam Height [...] byprimary OB provider unless otherwise specified by [facility]. Results forwarded to ordering provider so they can follow up with thepatient as necessary. us Blaise Tse MD [facility] US ORDERABLES Final Result * Free Cell DNA (Non-[facility] Send Out) (11/13/2024 11:51 AM EDT) us Not In System Ref Prov LAB BLOOD ORDERABLES Inga l Result MANUALLY TRANSCRIBED RESULTS * Unlisted Lab Test (11/12/2024) Only the most recent of2 resultswithin the time period is included. Free Cell Dna LOW RISK MANUALLY TRANSCRIBED RESULTS Blood (Arm) 11/12/2024 us Blaise Tse MD LAB BLOOD ORDERABLES Final Resul t MANUALLY TRANSCRIBED RESULTS * ABO Rh Repeat (11/07/2024 12:05 PM EDT) Only the most recent of2 resultswithin the time period is included. 11/07/2024 12:0 5 PM EDT us Melody Estes MD BLOOD BANK TEST ORDERABLES F inal Result Performing Organization Address City/[facility]/ZIP Co de Phone Number SUNQUEST * SST TOP (11/07/2024 10:18 AM EDT) Extra Tube Auto Resulted 11/07/2024 12:01 PM EDT [facility] Blood Venous blood / Unknown 11/07/2024 10:18 AM EDT 11/07/2024 10:18 AM EDT us Farshad Negro MD LAB BLOOD ORDERABLES Final Res ult Performing Organization Address City/[facility]/ZIP Co de Phone Number [facility] [address] [place] [address], [place] [phone] * (ABNORMAL) CBC auto differential (11/07/2024 10:03 AM EDT) WBC 9.6 4 - 11 x10E9/L 11/07/2024 10:34 AM EDT [facility] RBC Count 3.85 3.8 - 5.2 X10E12/L 11/07/2024 10:34 AM EDT [facility] Hemoglobin 11.3(L) 11.7 - 15.5 g/dL 11/07/2024 10:34 AM EDT [facility] Hematocrit 33.3(L) 35 - 47 % 11/07/2024 10:34 AM EDT [facility] MCV 86 80 - 100 fL 11/07/2024 10:34 AM EDT [facility] MCH 29.2 27 - 34 pg 11/07/2024 10:34 AM EDT [facility] MCHC 33.9 32 - 36 g/dL 11/07/2024 10:34 AM EDT [facility] RDW 13.8 11.5 - 15 % 11/07/2024 10:34 AM EDT [facility] Platelet Count 253 150 - 450 X10E9/L 11/07/2024 10:34 AM EDT [facility] MPV 7.4 7 - 12 fL 11/07/2024 10:34 AM EDT [facility] Neutrophils % 84.5 % 11/07/2024 10:34 AM EDT [facility] Lymphocytes % 9.8 % 11/07/2024 10:34 AM EDT [facility] Monocytes % 5.5 % 11/07/2024 10:34 AM EDT [facility] Eosinophils % 0.1 % 11/07/2024 10:34 AM EDT [facility] Basophils % 0.1 % 11/07/2024 10:34 AM EDT [facility] Neutrophils Absolute (A) 8.1(H) 1.5 - 6.6 10*3/uL 11/07/2024 10:34 AM EDT [facility] Lymphocytes Absolute 0.9(L) 1.0 - 3.5 10*3/uL 11/07/2024 10:34 AM EDT [facility] Monocytes Absolute 0.5 0.0 - 0.9 10*3/uL 11/07/2024 10:34 AM EDT [facility] Eosinophils Absolute 0.0 0.0 - 0.4 10*3/uL 11/07/2024 10:34 AM EDT [facility] Basophils Absolute 0.0 0.0 - 0.2 10*3/uL 11/07/2024 10:34 AM EDT [facility] Differential Type AUTOMATED DIFFERENTIAL 11/07/2024 10:34 AM EDT [facility] Blood Venous blood / Unknown Venipuncture / Unknown 11/07/2024 10:03 AM EDT 11/07/2024 10:03 AM EDT us Melody Estes MD LAB BLOOD ORDERABLES Final R esult [facility] [address] [place] [address], * Type and screen(includes indirect pedro) (11/07/2024 10:03 AM EDT) Pathologist [facility] ABO A 11/07/2024 10:48 AM EDT [facility] RH Positive 11/07/2024 10:48 AM EDT [facility] Antibody Screen Negative 11/07/2024 10:48 AM EDT [facility] Blood Venous blood / Unknown Venipuncture / Unknown 11/07/2024 10:03 AM EDT 11/07/2024 10:03 AM EDT Melody Estes MD BLOOD BANK TEST ORDERABLES E dited Result - Final Performing Organization Address City/[facility]/ZIP Co de Phone Number [facility] [address] [place] [address], [facility] [address] [place] [address], * Chlamydia/GC by PCR Claritza Swab (11/07/2024 8:50 AM EDT) CHLAMYDIA DNA(PCR) Negative Negative 11/08/2024 11:15 AM EDT [facility] Comment:Chlamydia trachomati s not detected by nucleic acid amplification. This does not exclude the possibility of infection because results are dependent on adequate specimen collection. GONORRHOEAE DNA(PCR) Negative Negative 11/08/2024 11:15 AM EDT [facility] Comment:Neisseria gonorrhoea e not detected by nucleic acid amplification. This does not exclude the possibility of infection because results are dependent on adequate specimen collection. Swab Vaginal structure / Unknown 11/07/2024 8:50 AM EDT 11/07/2024 9:12 AM EDT Lisa Lopez SALES ASSOCIATE CASHIER-CNM MICROBIOLOGY - GENE RAL ORDERABLES Final Result [facility] [address] [place] [address], * Vaginitis Panel PCR (11/07/2024 8:50 AM EDT) BACT. VAGINOSIS DNA Not Detected Not Detected 11/07/2024 3:09 PM EDT [facility] Comment:Qualitative results are reported based on detection and quantitation of targeted organism markers which include: Lactobacillus spp. (L. crispatus and L. jensenii), Gardnerella vaginalis, Atopobium vaginae, Bacterial Vaginosis Associated Bacteria-2 (BVAB-2) and Megasphaera-1. KENYA SPECIES DNA Not Detected Not Detected 11/07/2024 3:09 PM EDT [facility] Comment:[place] species not detected include: C. albicans, C. tropicalis, C. parapsilosis or C. dubliniensis. KENYA KRUSEI DNA Not Detected Not Detected 11/07/2024 3:09 PM EDT [facility] Comment:No [place] krusei de tected. KENYA GLABRATA DNA Not Detected Not Detected 11/07/2024 3:09 PM EDT [facility] Comment:No [place] glabrata detected. TRICHOMONAS VAG DNA Not Detected Not Detected 11/07/2024 3:09 PM EDT [facility] Comment: No Trichomonas vaginalis detected. BD [...] RAL ORDERABLES Final Result Performing Organization Address City/[facility]/ZIP Co de Phone Number [facility] [address] [place] [address], [place] [phone] * Strep B screen (11/07/2024 8:50 AM EDT) CULTURE RESULTS NEGATIVE FOR GROUP B STREPTOCOCCUS BY NUCLEIC ACID AMPLIFICATION 11/08/2024 3:27 PM EDT [facility] Swab (Vagina/Rectum) 11/07/2024 8:50 AM EDT 11/07/2024 9:12 AM EDT Lisa MINOR MICROBIOLOGY - GENE RAL ORDERABLES Final Result Performing Organization Address [facility] Co de Phone Number [facility] [address] [place] [address], [place] [phone] * Er Extra Urine (11/07/2024 7:39 AM EDT) Extra Tube Auto Resulted 11/07/2024 9:01 AM EDT [facility] Urine Urine specimen collection, clean catch / Unknown 11/07/2024 7:39 AM EDT 11/07/2024 7:51 AM EDT Farshad Negro MD URINE ORDERABLES Final Result Performing Organization Address City/[facility]/ZIP Co de Phone Number [facility] [address] [place] [address], [place] [phone] * (ABNORMAL) Urinalysis (11/07/2024 7:39 AM EDT) COLOR Colorless Yellow, Colorless 11/07/2024 8:04 AM EDT [facility] TURBIDITY Hazy(A) Clear 11/07/2024 8:04 AM EDT [facility] SPECIFIC GRAVITY 1.003 1.003 - 1.035 11/07/2024 8:04 AM EDT [facility] NITRITE Negative Negative 11/07/2024 8:04 AM EDT [facility] PH,URINE 6.5 5.0 - 8.5 11/07/2024 8:04 AM EDT [facility] LEUKOCYTE ESTERASE Small(A) Negative 11/07/2024 8:04 AM EDT [facility] PROTEIN Negative Negative 11/07/2024 8:04 AM EDT [facility] KETONES (URINE) Negative Negative 8:04 AM EDT [facility] UROBILINOGEN <1.1 eu/dL <1.1 eu/dL 11/07/2024 8:04 AM EDT [facility] BILIRUBIN (URINE) Negative Negative 11/07/2024 8:04 AM EDT [facility] BLOOD/HGB Negative Negative 11/07/2024 8:04 AM EDT [facility] MUCOUS Present(A) None 11/07/2024 8:04 AM EDT [facility] R.B.CELLS 3 0 - 5 11/07/2024 8:04 AM EDT [facility] SQUAMOUS EPITHELIUM 9(H) 0 - 5 11/07/2024 8:04 AM EDT [facility] W.B.CELLS 9(H) 0 - 5 11/07/2024 8:04 AM EDT [facility] GLUCOSE (URINE) Negative Negative 8:04 AM EDT [facility] Urine 11/07/2024 7:39 AM EDT 11/07/2024 7:50 AM EDT us Lisa Lopez SALES ASSOCIATE CASHIER-CNM URINE ORDERABLES Fi nal Result [facility] [address] [place] [address], [place] [phone] * Urine Culture Urine, Clean Catch Midstream (11/07/2024 7:39 AM EDT) CULTURE RESULTS NO GROWTH AT <1000 CFU/mL 11/08/2024 8:24 AM EDT [facility] Urine Urine specimen collection, clean catch / Unknown 11/07/2024 7:39 AM EDT 11/07/2024 7:50 AM EDT Lisa Lopez APRN-CLAREM MICROBIOLOGY - GENE RAL ORDERABLES Final Result [facility] [address] [place] [address], * CMV IgM (10/26/2024 12:37 PM EDT) CYTOMEGALOVIRUS IGM 0.2 <0.9 AI 10/26 2:54 PM EDT [facility] Blood Venous blood / Unknown Venipuncture / Unknown 10/26/2024 12:37 PM EDT 10/26/2024 12:37 PM EDT Narrative [facility] - 10/26/2024 2:54 PM EDT Intepretation < 0.9 Negative 0.9 - 1.0 Equivocal > 1.0 Positive The following results were obtained with the Colibri Heart Valve 2200 ToRC IgM test. Results obtained from other Radiological Engineer's assay methods may not be used interchangeably. Blaise Tse MD LAB BLOOD ORDERABLES Final Resul t [facility] [address] [place] [address], * (ABNORMAL) Cytomegalovirus antibody, IgG (10/26/2024 12:37 PM EDT) CYTOMEGALOVIRUS IGG >8.0(H) <0.9 AI 10/26 2:54 PM EDT [facility] Blood Venous blood / Unknown Venipuncture / Unknown 10/26/2024 12:37 PM EDT 10/26/2024 12:37 PM EDT Narrative [facility] - 10/26/2024 2:54 PM EDT Intepretation < 0.9 Negative 0.9 - 1.0 Equivocal > 1.0 Positive Blaise Tse MD LAB BLOOD ORDERABLES Final Resul t [facility] [address] [place] [address], * ECG 12 lead (10/04/2024 5:06 PM EDT) 10/04/2024 5:06 PM EDT Narrative [facility] - 10/06/2024 11:23 AM EDT Mya Dumont MD ECG ORDERABLES Final Result [facility] from Last 3 Months Insurance [employer] Advance Directives * Full Code (Latest Code Status on File) Date Activated Date Inactivated Comments 11/07/2024 9:33 AM 11/08/2024 4:22 PM Care Teams Merchandise Execution Leader Relationship Specialty Start Date End Date Belén Rooney MD [address] [place] [phone] PCP - General Family Medicine 09/29/18
--- OUTSIDE RECORDS SUMMARY | 2024-12-30 08:15 | XMS_ITS | Encounter Summary ---
Author Organization [facility] Address [address] [place] [address] Care Team Providers Care Account Executive Healthcare Name Role Phone Marlon Laguna MD Primary Care Provider [phone] Saul Eugene DO Unavailable Encounter Details Date Type Department Care Team (Late st Contact Info) Description 11/24/2024 Abstract [facility] [address] [place] [phone] Saul Eugene DO [address] [place], [facility]11 Social History Tobacco Use Types Packs/Day Years [...] [facility] [address] [place] [address] Saul Eugene DO [address] [place] [address] 03/28/2025 2:00 PM EST Office Visit [facility] [place] [facility] [address] [facility] [place] [place] [phone] Saul Eugene DO [address] [facility] [place] [address] documented as of this encounter Goals Goal Patient Goal Type Associated Problems Recent Progress Patient-Stated? Author Reminders Care Plan OB Reminders No Open Scheduling, Background documented as of this encounter Visit Diagnoses Not on filedocumented in this encounter Additional Health Concerns Active Problems Noted Date Diagnosed Date OB Reminders 08/14/2024 documented as of this encounter Care Teams Account Executive Healthcare Relationship Specialty Start Date End Date Marlon Laguna MD [address] [facility] [place] [address] PCP - General Family Medicine 08/29/23 Saul Eugene DO [address] [place] [address] Referring Physician Obstetrics and Gynecology 08/16/24 documented as of this encounter
--- OUTSIDE RECORDS SUMMARY | 2024-12-30 08:16 | XMS_ITS | Encounter Summary ---
Author Organization [facility] Address [address] [place] [address] Care Team Providers Care Medical Equipment Repair Technician Name Role Phone Marlon Laguna MD Primary Care Provider [phone] Saul Eugene DO Unavailable Encounter Details Date Type Department Care Team (Late Contact Info) Description 10/01/2024 Orders Only [facility] [place] [facility] [address] [place] [address] Ximena Aly [place] Social History Tobacco [...] Routine [facility] [place] [facility] [address] [place] [address] Saul Eugene DO [address] [place] [address] 03/28/2025 2:00 PM EST Office Visit [facility] [place] [facility] [address] [place] [phone] Saul Eugene DO [address] [place] [address] documented as of this encounter Goals Goal [...] as of this encounter Care Teams Medical Equipment Repair Technician Relationship Specialty Start Date End Date Marlon Laguna MD [address] [facility] [place] [address] PCP - General Family Medicine 08/29/23 Saul Eugene DO [address] [place] [address] Referring Physician Obstetrics and Gynecology 08/16/24 documented as of this encounter
--- OUTSIDE RECORDS SUMMARY | 2024-12-30 08:16 | XMS_ITS | Encounter Summary ---
Author Organization [facility] Address [address] [place] [address] Care Team Providers Care Salesperson Corsets Name Role Phone Marlon Laguna MD Primary Care Provider [phone] Saul Eugene DO Unavailable Encounter Details Date Type Department Care Team (Late st Contact Info) Description 10/11/2024 Abstract [facility] [address] [place] [phone] Saul Eugene DO [address] [place], [facility]11 Social History Tobacco Use Types Packs/Day [...] PALMER [address] [place] [address] Sual Eugene DO [address] [place] [address] 03/28/2025 2:00 PM EST Office Visit [facility] [place] [facility] [address] [facility] [place] [phone] Saul Eugene DO [address] [facility] [place] [address] documented as of this encounter Goals Goal Patient Goal Type Associated Problems Recent Progress Patient-Stated? Author Reminders Care Plan OB Reminders No Open Scheduling, Background documented as of this encounter Visit Diagnoses Not on filedocumented in this encounter Additional Health Concerns Active Problems Noted Date Diagnosed Date OB Reminders 08/14/2024 documented as of this encounter Care Teams Salesperson Corsets Relationship Specialty Start Date End Date Marlon Laguna MD [address] [facility] [place] [address] PCP - General Family Medicine 08/29/23 Saul Eugene DO [address] [place] [address] Referring Physician Obstetrics and Gynecology 08/16/24 documented as of this encounter
--- OUTSIDE RECORDS SUMMARY | 2024-12-30 08:16 | XMS_ITS | Encounter Summary ---
Author Organization [facility] Address [address] [place] [address] Care Team Providers Care Nurse Quality Name Role Phone Marlon Laguna MD Primary Care Provider [phone] Vic Eugene DO Unavailable Encounter Details Date Type Department Care Team (Late st Contact Info) Description 12/28/2024 Clinisync Result Encounter [facility] External Department Unsolicited Vic Eugene, [address] [place], [place] [phone] Social History Tobacco Use Types Packs/Day Years [...] AM EDT Routine [facility] [place] [facility] [address] [place] [address] Vic Eugene, DO [address] [facility] [place] [address] 03/28/2025 2:00 PM EST Office Visit [facility] [place] [facility] [address] [facility] [place] [address] Vic Eugene, DO [address] [facility] [place] [address] documented as of this encounter Goals Goal [...] EDT Narrative 12/28/2024 3:41 PM EDT The [address] [address] Ultrasound Report Signed Patient: MINNIE BUNCH MR#: [id number] : 1995 Acct:[id number] Age/Sex: 29 / F ADM Date: 12/28/24 Loc: US Attending Dr: Vic Eugene D.O. Ordering Physician: Vic Eugene D.O. Date of Service: 12/28/24 Procedure(s): US OB BPP w non-stress Accession Number(s): [id number] cc: Vic Eugene D.O.; Marlon Laguna M.D. The [address] [address] Patient Name: MINNIE BUNCH MRN: [id number] date: 1995 Sex: F Assigned Patient Location: US Current Patient Location: Accession/Order Number: [id number] Exam Date: 12/28/2024 15:37 Report Date: 12/28/2024 15:38 At the request of: VIC EUGENE DO Procedure: US OB BPP w non-stress Biophysical profile. Reason for exam: Twin COMPARISON: 12/24/2024 TECHNIQUE: The roller inspector and mender reports a fetus A BPP of 8 out of 8. MVP is 4.8 cm. heart rate 141 bpm. The roller inspector and mender reports fetus B BPP of 8 out of 8. MVP is 5.7 cm. heart rate 150 bpm. US/US OB BPP w non-stress IMPRESSION: BPP 8out of 8 for Fetus A. BPP 8 out of 8 for fetus B. Impression dictated by: Barrington Spears Jr., D.O. 12/28/2024 3:38 PM Dictation Location: [place] [address] Electronically authenticated by: [id number] Y Date: 12/28/2024 15:38 Dictated By: Barrington Spears M.D. Signed By: 12/28/24 1541 DD/ 1538 TD/TT: Tear Down Man: Procedure Note Radiology, Radiologist, - 12/28/2024 [place] [address] Ultrasound Report Signed Patient: MINNIE BUNCH AMR#: [id number] : 1995Acct:[id number] Age/Sex: 29 / FADM Date: 12/28/24 Loc: US Attending Dr: Vic Eugene D.O. Ordering Physician: Vic Eugene D.O. Date of Service: 12/28/24 Procedure(s): US OB BPP w non-stress Accession Number(s): [id number] cc: Vic Eugene D.O.; Marlon Laguna M.D. The [place] [id number] Patient Name: MINNIE BUNCH MRN: [facility]:[id number] date: 1995 Sex: F Assigned Patient Location: Current Patient Location: Accession/Order Number: [id number] Exam Date: 12/28/2024 15:37 Report Date: 12/28/2024 15:38 At the request of: VIC EUGENE DO Procedure: US OB BPP w non-stress Biophysical profile. Reason for exam: Twin COMPARISON: 12/24/2024 TECHNIQUE: The roller inspector and mender reports a fetus A BPP of 8 out of 8. MVP is4.8 cm. heart rate 141 bpm. The roller inspector and mender reports fetus B BPP of 8 out of 8. MVP is 5.7 cm. heart rate 150 bpm. US/US OB BPP w non-stress IMPRESSION: BPP 8out of 8 for Fetus A. BPP 8 out of 8 for fetus B. Impression dictated by: Barrington Spears Jr., D.O. 12/28/2024 3:38 PM Dictation Location: [place] [address] Electronically authenticated by: [id number] Y Date: 5:38 Dictated By: Barrington Spears M.D. Signed By:12/28/24 1541 DD/ 1538 TD/TT: Tear Down Man: Vic Eugene DO [facility] Final Result documented in this encounter Visit Diagnoses Not on filedocumented in this encounter Additional Health Concerns Active Problems Noted Date Diagnosed Date OB Reminders 08/14/2024 documented as of this encounter Care Teams Nurse Quality Relationship Specialty Start Date End Date Marlon Laguna MD [address] [facility] [place] [address] PCP - General Family Medicine 08/29/23 Vic Eugene DO [address] [place] [address] [place] [address] Referring Physician Obstetrics and Gynecology 08/16/24 documented as of this encounter
--- OUTSIDE RECORDS SUMMARY | 2024-12-30 08:17 | XMS_ITS | Encounter Summary ---
Author Organization [facility] Address [address] [place] [address] Care Team Providers Care Sprinkling System Installer Name Role Phone Marlon Laguna MD Primary Care Provider [phone] Saul Eugene DO Unavailable Encounter Details Date Type Department Care Team (Late st Contact Info) Description 11/22/2024 Abstract [facility] [address] [place] [phone] Saul Eugene DO [address] [place], [facility]11 Social History Tobacco Use Types Packs/Day [...] PALMER [address] [place] [address] Saul Eugene DO [address] [place] [address] 03/28/2025 2:00 PM EST Office Visit [facility] [place] [facility] [address] [facility] [place] [place] [phone] Saul Eugene DO [address] [facility] [place] [address] documented as of this encounter Goals Goal Patient Goal Type Associated Problems Recent Progress Patient-Stated? Author Reminders Care Plan OB Reminders No Open Scheduling, Background documented as of this encounter Visit Diagnoses Not on filedocumented in this encounter Additional Health Concerns Active Problems Noted Date Diagnosed Date OB Reminders 08/14/2024 documented as of this encounter Care Teams Sprinkling System Installer Relationship Specialty Start Date End Date Marlon Laguna MD [address] [facility] [place] [address] PCP - General Family Medicine 08/29/23 Saul Eugene DO [address] [place] [address] Referring Physician Obstetrics and Gynecology 08/16/24 documented as of this encounter
--- OUTSIDE RECORDS SUMMARY | 2024-12-30 08:17 | XMS_ITS | Encounter Summary ---
Author Organization [facility] Address [address] [place] [address] Care Team Providers Care Landscape Laborer Name Role Phone Marlon Laguna MD Primary Care Provider [phone] Saul Eugene DO Unavailable Encounter Details Date Type Department Care Team (Late st Contact Info) Description 10/12/2024 Abstract [facility] [address] [place] [phone] Saul Eugene DO [address] [place], [facility]11 Social History Tobacco Use Types Packs/Day Years [...] [facility] [address] [place] [address] Saul Eugene DO [address] [place] [address] 03/28/2025 2:00 PM EST Office Visit [facility] [place] [facility] [address] [facility] [place] [address] Saul Eugene DO [address] [facility] [place] [address] documented as of this encounter Goals Goal Patient Goal Type Associated Problems Recent Progress Patient-Stated? Author Reminders Care Plan OB Reminders No Open Scheduling, Background documented as of this encounter Visit Diagnoses Not on filedocumented in this encounter Additional Health Concerns Active Problems Noted Date Diagnosed Date OB Reminders 08/14/2024 documented as of this encounter Care Teams Landscape Laborer Relationship Specialty Start Date End Date Marlon Laguna MD [address] [facility] [place] [address] PCP - General Family Medicine 08/29/23 Saul Eugene DO [address] [place] [address] Referring Physician Obstetrics and Gynecology 08/16/24 documented as of this encounter
--- OUTSIDE RECORDS SUMMARY | 2024-12-30 08:17 | XMS_ITS | Encounter Summary ---
Author Organization [facility] Address [address] [place] [address] Care Team Providers Care Motorcycle Maker Name Role Phone Marlon Laguna MD Primary Care Provider [phone] Saul Eugene DO Unavailable Encounter Details Date Type Department Care Team (Late st Contact Info) Description 12/14/2024 Abstract [facility] [address] [place] [phone] Saul Eugene DO [address] [place], [facility]11 Social History Tobacco Use Types Packs/Day Years [...] PALMER [address] [place] [address] Saul Eugene DO [address] [place] [address] 03/28/2025 2:00 PM EST Office Visit [facility] [place] [facility] [address] [facility] [place] [place] [address] Saul Eugene DO [address] [facility] [place] [address] documented as of this encounter Goals Goal Patient Goal Type Associated Problems Recent Progress Patient-Stated? Author Reminders Care Plan OB Reminders No Open Scheduling, Background documented as of this encounter Visit Diagnoses Not on filedocumented in this encounter Additional Health Concerns Active Problems Noted Date Diagnosed Date OB Reminders 08/14/2024 documented as of this encounter Care Teams Motorcycle Maker Relationship Specialty Start Date End Date Marlon Laguna MD [address] [facility] [place] [address] PCP - General Family Medicine 08/29/23 Saul Eugene DO [address] [place] [address] Referring Physician Obstetrics and Gynecology 08/16/24 documented as of this encounter
--- OUTSIDE RECORDS SUMMARY | 2024-12-30 08:17 | XMS_ITS | Encounter Summary ---
Author Organization [facility] Address [address] [place] [address] Care Team Providers Care Rn Access Name Role Phone Marlon Laguna MD Primary Care Provider [phone] Saul Eugene DO Unavailable Encounter Details Date Type Department Care Team (Late st Contact Info) Description 11/03/2023 Clinisync Result Encounter [facility] External Department Unsolicited Saul Eugene DO [address] [place], [place] [phone] Social History Tobacco Use Types Packs/Day Years [...] AM EDT Routine [facility] [place] [facility] [address] [facility] [place] [phone] Saul Eugene DO [address] [place] [address] 03/28/2025 2:00 PM EST Office Visit [facility] [place] [facility] [address] [facility] [phone] Saul Eugene DO [address] [facility] [place] [address] documented as of this encounter Procedures Procedure Name Priority Date/Time Associated Diagnosis Comments MM TOMOSYNTHESIS DIAGNOSTIC BI 11/03/2023 1:17 PM EDT documented in this encounter Results * MM TOMOSYNTHESIS DIAGNOSTIC BI (11/03/2023 1:17 PM EDT) Anatomical Region Laterality Modality Other 11/03/2023 1:17 PM EDT Narrative 11/03/2023 1:18 PM EDT The [address] [address] Mammography Report Signed Patient: MINNIE SWIFT MR#: [id number] : 1995 Acct:[id number] Age/Sex: 28 / F ADM Date: 11/03/23 Loc: MAMMO Attending Dr: Saul Eugene D.O. Ordering Physician: Saul Eugene D.O. Results: Date of Service: 11/03/23 Follow Up: Procedure(s): MM tomosynthesis diagnostic BI Accession Number(s): [id number] cc: Saul Eugene D.O.; Marlon Laguna M.D. Patient Name: MINNIE SWIFT MR#: [id number] : 1995 Exam Date: 11/03/2023 Ordering Doctor: [...] Treatments None Family Cancers None LOCATION: The [facility] BREAST COMPOSITION: There are scattered areas of fibroglandular density. FINDINGS: DIAGNOSTIC CATEGORY 1--NEGATIVE. Scattered benign-appearing lymph nodes are present. RIGHT BREAST: No significant suspicious finding. [place] marker upper outer quadrant, anterior breast corresponding [...] Signed By: 11/03/23 1318 DD/ 1317 TD/TT: Auger Mill Operator: Procedure Note Radiology, Radiologist, MD - 11/03/2023 [place] [address] Mammography Report Signed Patient: MINNIE SWIFT AMR#: [id number] : 1995Acct:[id number] Age/Sex: Date: 11/03/23 Loc: MAMMO Attending Dr: Saul Eugene D.O. Ordering Physician: Saul Eugene D.O.Results: Date of Service: 11/03/23Follow Up: Procedure(s): MM tomosynthesis diagnostic BI Accession Number(s): [id number] cc: Saul Eugene D.O.; Marlon Laguna M.D. Patient Name: MINNIE SWIFT MR#: [id number] : 1995 Exam Date: 11/03/2023 Ordering Doctor: [...] Treatments None Family Cancers None LOCATION: The [facility] BREAST COMPOSITION: There are scattered areas of fibroglandulardensity. FINDINGS: DIAGNOSTIC CATEGORY 1--NEGATIVE. Scattered benign-appearing lymph nodes are present. RIGHT BREAST: No significant suspicious finding. [place] marker upperouter quadrant, anterior breast corresponding to [...] on 11/03/2023 at 13:12 Approved by: Farshad Fitzegrald MD on 11/03/2023 at 13:17 Dictated By: Farshad Fitzgerald M.D. Signed By:11/03/23 1318 DD/ TD/TT: Auger Mill Operator: Saul Eugene DO [facility] Final Result documented in this encounter Visit Diagnoses Not on filedocumented in this encounter Care Teams Rn Access Relationship Specialty Start Date End Date Marlon Laguna MD [address] [place] [address] PCP - General Family Medicine 08/29/23 Saul Eugene DO [address] [place] [address] [place] [address] Referring Physician Obstetrics and Gynecology 08/16/24 documented as of this encounter
--- OUTSIDE RECORDS SUMMARY | 2024-12-30 08:17 | XMS_ITS | Encounter Summary ---
Author Organization [facility] Address [address] [place] [address] Care Team Providers Care Green Energy Marketing Analyst Name Role Phone Marlon Laguna MD Primary Care Provider [phone] Saul Eugene DO Unavailable Encounter Details Date Type Department Care Team (Late st Contact Info) Description 11/22/2024 Abstract [facility] [address] [place] [phone] Saul Eugene DO [address] [place], [facility]11 Social History Tobacco Use Types Packs/Day [...] PALMER [address] [place] [address] Saul Eugene DO [address] [place] [address] 03/28/2025 2:00 PM EST Office Visit [facility] [place] [facility] [address] [facility] [place] [address] Saul Eugene DO [address] [facility] [place] [address] documented as of this encounter Goals Goal Patient Goal Type Associated Problems Recent Progress Patient-Stated? Author Reminders Care Plan OB Reminders No Open Scheduling, Background documented as of this encounter Visit Diagnoses Not on filedocumented in this encounter Additional Health Concerns Active Problems Noted Date Diagnosed Date OB Reminders 08/14/2024 documented as of this encounter Care Teams Green Energy Marketing Analyst Relationship Specialty Start Date End Date Marlon Laguna MD [address] [facility] [place] [address] PCP - General Family Medicine 08/29/23 Saul Eugene DO [address] [place] [address] Referring Physician Obstetrics and Gynecology 08/16/24 documented as of this encounter
--- OUTSIDE RECORDS SUMMARY | 2024-12-30 08:17 | XMS_ITS | Encounter Summary ---
Author Organization [facility] Address [address] [place] [address] Care Team Providers Care Personal Property Appraiser Name Role Phone Marlon Laguna MD Primary Care Provider [phone] Vic Eugene DO Unavailable Encounter Details Date Type Department Care Team (Late st Contact Info) Description 12/21/2024 Clinisync Result Encounter [facility] External Department Unsolicited Vic Eugene, [address] [place], [place] [id number] Social History Tobacco Use Types Packs/Day Years [...] AM EDT Routine [facility] [place] [facility] [address] [place] [address] Vic Eugene, DO [address] [facility] [place] [address] 03/28/2025 2:00 PM EST Office Visit [facility] [place] [facility] [address] [facility] [place] [phone] Vic Eugene, DO [address] [facility] [place] [address] documented as of this encounter Goals Goal [...] EDT Narrative 12/21/2024 3:02 PM EDT The [address] [address] Ultrasound Report Signed Patient: MINNIE BUNCH MR#: [id number] : 1995 Acct:[id number] Age/Sex: 29 / F ADM Date: 12/21/24 Loc: US Attending Dr: Vic Eugene D.O. Ordering Physician: Vic Eugene D.O. Date of Service: 12/21/24 Procedure(s): US OB BPP w non-stress Accession Number(s): [id number] cc: Vic Eugene D.O.; Marlon Laguna M.D. The [address] [address] Patient Name: MINNIE BUNCH MRN: [id number] date: 1995 Sex: F Assigned Patient Location: US Current Patient Location: Accession/Order Number: [id number] Exam Date: 12/21/2024 14:56 Report Date: 12/21/2024 15:00 At the request of: VIC EUGENE DO Procedure: US OB BPP w non-stress Biophysical profile. Reason for exam: No chorionic diamniotic twin gestation. COMPARISON: None TECHNIQUE: Transabdominal imaging of the gravid uterus was obtained. FINDINGS: The gear repair supervisor reports a fetus A BPP of 6 out of 8 with 0 points for breathing.. MVP is 6.3 cm. heart rate 135 bpm. The gear repair supervisor reports fetus B BPP of 8 out of 8. MVP is 3.7 cm. heart rate 139 bpm. US/US OB BPP w non-stress IMPRESSION: BPP 6out of 8 for Fetus A. Correlation with NST is recommended. BPP 8 out of 8 for fetus B. Impression dictated by: Barrington Spears Jr., D.O. 12/21/2024 3:00 PM Dictation Location: [place] [address] Electronically authenticated by: [id number] Y Date: 12/21/2024 15:00 Dictated By: Barrington Spears M.D. Signed By: 12/21/24 1502 DD/ 1500 TD/TT: Scraper Burrer: Procedure Note Radiology, Radiologist, MD - 12/21/2024 [place] [address] Ultrasound Report Signed Patient: MINNIE BUNCH [facility]#: [id number] : 1995Acct:[id number] Age/Sex: Date: 12/21/24 Loc: US Attending Dr: Vic Eugene D.O. Ordering Physician: Vic Eugene D.O. Date of Service: 12/21/24 Procedure(s): US OB BPP w non-stress Accession Number(s): [id number] cc: Vic Eugene D.O.; Marlon Laguna M.D. The [place] [id number] Patient Name: MINNIE BUNCH MRN: [id number] date: 1995 Sex: F Assigned Patient Location: Current Patient Location: Accession/Order Number: [id number] Exam Date: 12/21/2024 14:56 Report Date: 12/21/2024 15:00 At the request of: VIC EUGENE DO Procedure: US OB BPP w non-stress Biophysical profile. Reason for exam: No chorionic diamniotic twin gestation. COMPARISON: None TECHNIQUE: Transabdominal imaging of the gravid uterus was obtained. FINDINGS: The gear repair supervisor reports a fetus A BPP of 6 out of 8 with 0points for breathing.. MVP is 6.3 cm. heart rate 135 bpm. The gear repair supervisor reports fetus B BPP of 8 out of 8. MVP is 3.7 cm. heart rate 139 bpm. US/US OB BPP w non-stress IMPRESSION: BPP 6out of 8 for Fetus A. Correlation with NST is recommended. BPP 8 out of 8 for fetus B. Impression dictated by: Barrington Spears Jr., D.O. 12/21/2024 3:00 PM Dictation Location: [place] [address] Electronically authenticated by: [id number] Y Date: 5:00 Dictated By: Barrington Spears M.D. Signed By:12/21/24 1502 DD/ 1500 TD/TT: Scraper Burrer: Vic Eugene DO [facility] Final Result documented in this encounter Visit Diagnoses Not on filedocumented in this encounter Additional Health Concerns Active Problems Noted Date Diagnosed Date OB Reminders 08/14/2024 documented as of this encounter Care Teams Personal Property Appraiser Relationship Specialty Start Date End Date Marlon Laguna MD [address] [facility] [place] [address] PCP - General Family Medicine 08/29/23 Vic Eugene DO [address] [place] [address] [place] [address] Referring Physician Obstetrics and Gynecology 08/16/24 documented as of this encounter
--- OUTSIDE RECORDS SUMMARY | 2024-12-30 08:17 | XMS_ITS | Encounter Summary ---
Author Organization [facility] Address [address] [place] [address] Care Team Providers Care Product Applications Engineer Name Role Phone Marlon Laguna MD Primary Care Provider [phone] Saul Eugene DO Unavailable Encounter Details Date Type Department Care Team (Late st Contact Info) Description 11/02/2024 Abstract [facility] [place] [facility] [address] [place] [address] Ximena Aly MA Social History Tobacco [...] EDT Routine [facility] [address] [place] [address] Saul Eugene DO [address] [place] [address] 03/28/2025 2:00 PM EST Office Visit [facility] [place] [facility] [address] [place] [phone] Saul Eugene DO [address] [place] [address] documented as of this encounter Goals Goal Patient Goal Type Associated Problems Recent Progress Patient-Stated? Author Reminders Care Plan OB Reminders No Open Scheduling, Background documented as of this encounter Visit Diagnoses Not on filedocumented in this encounter Additional Health Concerns Active Problems Noted Date Diagnosed Date OB Reminders 08/14/2024 documented as of this encounter Care Teams Product Applications Engineer Relationship Specialty Start Date End Date Marlon Laguna MD [address] [facility] [place] [address] PCP - General Family Medicine 08/29/23 Saul Eugene DO [address] [place] [address] Referring Physician Obstetrics and Gynecology 08/16/24 documented as of this encounter
--- OUTSIDE RECORDS SUMMARY | 2024-12-30 08:17 | XMS_ITS | Patient Health Record ---
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 Stress is when someone feels tense, nervous, anxious, or can't sleep at night because their mind is troubled A little bit patient entered data In the past year have you sp ent more than 2 nights in a row in a long-term, penitentiary, mcc center, or juvenile correctional facility? No [...] Encounter Location Date Provider Diagnosis Dental Main [facility] [place], [place] [id number] 02/23/2024 Heaven French-Hudley Necrosis of pulp K 04.1 and Encounter for dental examination and cleaning without abnormal findings Z01.20 Dental Main [address] [place], [place] [id number] 11/19/2024 Yuliet Lozano Dental caries into dentine K02.62 and Encounter for dental examination and cleaning with abnormal findings Z01.21 Assessments Encounter Date Diagnosis (ICD Code) Assessment Notes Treatment Notes Treatment Clinical Notes Section Notes 11/19/2024 Dental caries into dentine (ICD-10 - K02.62) 02/23/2024 Necrosis of pulp (ICD-10 - K04.1) 11/19/2024 Encounter for dental examination and cleaning with abnormal findings (ICD-10 - Z01.21) 02/23/2024 Encounter for dental examination and cleaning without abnormal findings (ICD-10 - Z01.20) Plan Of Treatment Next Appt Details Provider Name:Deshawn Moon , 06/10/2025 09:45:00 AM, [address] [place], [place], [id number], Insurance Providers Payer Name Payer Address Payer Phone Subscriber Number Group Number Insured Name Patient Relationship to Insured Coverage Start Date Coverage End Date [facility] [address] [place], [place] [id number] [phone] [id number] Sukhwinder Pedro Spouse - patient is the spouse of the insured 4
--- OUTSIDE RECORDS SUMMARY | 2024-12-30 08:17 | XMS_ITS | Encounter Summary ---
Author Organization [facility] Address [address] [place] [address] Care Team Providers Care Account Leader Name Role Phone Marlon Laguna MD Primary Care Provider [phone] Saul Eugene DO Unavailable Encounter Details Date Type Department Care Team (Late st Contact Info) Description 10/27/2024 Abstract [facility] [address] [place] [phone] Saul Eugene DO [address] [place], [facility] Social History Tobacco Use Types Packs/Day [...] PALMER [address] [place] [address] Saul Eugene DO [address] [place] [address] 03/28/2025 2:00 PM EST Office Visit [facility] [place] [facility] [address] [facility] [place] [address] Saul Eugene DO [address] [facility] [place] [address] documented as of this encounter Goals Goal Patient Goal Type Associated Problems Recent Progress Patient-Stated? Author Reminders Care Plan OB Reminders No Open Scheduling, Background documented as of this encounter Visit Diagnoses Not on filedocumented in this encounter Additional Health Concerns Active Problems Noted Date Diagnosed Date OB Reminders 08/14/2024 documented as of this encounter Care Teams Account Leader Relationship Specialty Start Date End Date Marlon Laguna MD [address] [facility] [place] [address] PCP - General Family Medicine 08/29/23 Saul Eugene DO [address] [place] [address] Referring Physician Obstetrics and Gynecology 08/16/24 documented as of this encounter
--- OUTSIDE RECORDS SUMMARY | 2024-12-30 08:17 | XMS_ITS | Encounter Summary ---
Author Organization [facility] Address [address] [place] [address] Care Team Providers Care Recreation Attendant Supervisor Name Role Phone Marlon Laguna MD Primary Care Provider [phone] Saul Eugene DO Unavailable Encounter Details Date [...] AM EDT Routine [facility] [place] [facility] [address] [facility] [place] [address] Saul Eugene DO [address] [place], [place] [phone] 03/28/2025 2:00 PM EST Office Visit [facility] [place] [facility] [address] [place] [address] Saul Eugene DO [address] [place] [address] documented as of this encounter Goals Goal Patient Goal Type Associated Problems Recent Progress Patient-Stated? Author Reminders Care Plan OB Reminders No Open Scheduling, Background documented as of this encounter Visit Diagnoses Not on filedocumented in this encounter Additional Health Concerns Active Problems Noted Date Diagnosed Date OB Reminders 08/14/2024 documented as of this encounter Care Teams Recreation Attendant Supervisor Relationship Specialty Start Date End Date Marlon Laguna MD [address] [facility] [place] [address] PCP - General Family Medicine 08/29/23 Saul Eugene DO [address] [place] [address] Referring Physician Obstetrics and Gynecology 08/16/24 documented as of this encounter
--- OUTSIDE RECORDS SUMMARY | 2024-12-30 08:17 | XMS_ITS | Encounter Summary ---
Author Organization [facility] Address [address] [place] [address] Care Team Providers Care Country Sales Manager Name Role Phone Marlon Laguna MD Primary Care Provider [phone] Vic Eugene DO Unavailable Encounter Details Date Type Department Care Team (Late st Contact Info) Description 12/21/2024 Clinisync Result Encounter [facility] External Department Unsolicited Vic Eugene, [address] [place], [place] [phone] Social History Tobacco Use Types Packs/Day Years [...] AM EDT Routine [facility] [place] [facility] [address] [place] [address] Vic Eugene, DO [address] [facility] [place] [address] 03/28/2025 2:00 PM EST Office Visit [facility] [place] [facility] [address] [facility] [place] [phone] Vic Eugene, DO [address] [facility] [place] [address] documented as of this encounter Goals Goal [...] EDT Narrative 12/21/2024 3:02 PM EDT The [address] [address] Ultrasound Report Signed Patient: MINNIE BUNCH MR#: [id number] : 1995 Acct:[id number] Age/Sex: 29 / F ADM Date: 12/21/24 Loc: US Attending Dr: Vic Eugene D.O. Ordering Physician: Vic Eugene D.O. Date of Service: 12/21/24 Procedure(s): US OB BPP w non-stress Accession Number(s): [id number] cc: Vic Eugene D.O.; Marlon Laguna M.D. The [address] [address] Patient Name: MINNIE BUNCH MRN: [id number] date: 1995 Sex: F Assigned Patient Location: US Current Patient Location: Accession/Order Number: [id number] Exam Date: 12/21/2024 14:56 Report Date: 12/21/2024 15:00 At the request of: VIC EUGENE DO Procedure: US OB BPP w non-stress Biophysical profile. Reason for exam: No chorionic diamniotic twin gestation. COMPARISON: None TECHNIQUE: Transabdominal imaging of the gravid uterus was obtained. FINDINGS: The southeast regional sales manager reports a fetus A BPP of 6 out of 8 with 0 points for breathing.. MVP is 6.3 cm. heart rate 135 bpm. The southeast regional sales manager reports fetus B BPP of 8 out of 8. MVP is 3.7 cm. heart rate 139 bpm. US/US OB BPP w non-stress IMPRESSION: BPP 6out of 8 for Fetus A. Correlation with NST is recommended. BPP 8 out of 8 for fetus B. Impression dictated by: Barrington Spears Jr., D.O. 12/21/2024 3:00 PM Dictation Location: [place] [address] Electronically authenticated by: [id number] Y Date: 12/21/2024 15:00 Dictated By: Barrington Spears M.D. Signed By: 12/21/24 1502 DD/ 1500 TD/TT: Manager Strategic Marketing: Procedure Note Radiology, Radiologist, MD - 12/21/2024 [place] [address] Ultrasound Report Signed Patient: MINNIE BUNCH [facility]#: [id number] : 1995Acct:[id number] Age/Sex: Date: 12/21/24 Loc: US Attending Dr: Vic Eugene D.O. Ordering Physician: Vic Eugene D.O. Date of Service: 12/21/24 Procedure(s): US OB BPP w non-stress Accession Number(s): [id number] cc: Vic Eugene D.O.; Marlon Laguna M.D. The [place] [id number] Patient Name: MINNIE BUNCH MRN: [id number] date: 1995 Sex: F Assigned Patient Location: Current Patient Location: Accession/Order Number: [id number] Exam Date: 12/21/2024 14:56 Report Date: 12/21/2024 15:00 At the request of: VIC EUGENE DO Procedure: US OB BPP w non-stress Biophysical profile. Reason for exam: No chorionic diamniotic twin gestation. COMPARISON: None TECHNIQUE: Transabdominal imaging of the gravid uterus was obtained. FINDINGS: The southeast regional sales manager reports a fetus A BPP of 6 out of 8 with 0points for breathing.. MVP is 6.3 cm. heart rate 135 bpm. The southeast regional sales manager reports fetus B BPP of 8 out of 8. MVP is 3.7 cm. heart rate 139 bpm. US/US OB BPP w non-stress IMPRESSION: BPP 6out of 8 for Fetus A. Correlation with NST is recommended. BPP 8 out of 8 for fetus B. Impression dictated by: Barrington Spears Jr., D.O. 12/21/2024 3:00 PM Dictation Location: [place] [address] Electronically authenticated by: [id number] Y Date: 5:00 Dictated By: Barrington Spears M.D. Signed By:12/21/24 1502 DD/ 1500 TD/TT: Manager Strategic Marketing: Vic Eugene DO [facility] Final Result documented in this encounter Visit Diagnoses Not on filedocumented in this encounter Additional Health Concerns Active Problems Noted Date Diagnosed Date OB Reminders 08/14/2024 documented as of this encounter Care Teams Country Sales Manager Relationship Specialty Start Date End Date Marlon Laguna MD [address] [facility] [place] [address] PCP - General Family Medicine 08/29/23 Vic Eugene DO [address] [place] [address] [place] [address] Referring Physician Obstetrics and Gynecology 08/16/24 documented as of this encounter
--- OUTSIDE RECORDS SUMMARY | 2024-12-30 08:18 | XMS_ITS | Clinical Summary ---
Author Organization [facility] Address [address] [place] [address] Care Team Providers Care General Teller Name Role Phone Marlon Laguna MD Primary Care Provider [phone] Vic Eugene DO Unavailable Allergies No known [...] antepartum, gestational diabetes method of control unspecified ([facility]),Elevate d glucose tolerance test 1 each by In Vitro route Daily Use to check FSBS four times daily 150 each 3 5 12/25/19 25 Glucose Blood (Blood Glucose Test) stripIndications: Gestational diabetes mellitus (GDM), antepartum, gestational diabetes method of control unspecified ([facility]),Elevate d glucose tolerance test 1 strip by In Vitro route Daily Use in the morning prior to breakfast, 1 hour after each meal for a total of 4times daily. 150 strip 3 5 12/25/19 25 Encounters Date Type Department Care Team Description 12/28/2024 Clinisync Result Encounter [facility] External Department Unsolicited Vic Eugene, DO 12/28/2024 Clinisync Result Encounter [facility] External Department Unsolicited Vic Eugene, DO 12/24/2024 Clinisync Result Encounter [facility] External Department Unsolicited Vic Eugene, DO 12/23/2024 Travel 12/21/2024 Clinisync Result Encounter [facility] External Department Unsolicited Vic Eugene, DO 12/21/2024 Clinisync Result Encounter [facility] External Department Unsolicited Vic Eugene, DO 12/14/2024 1:50 PM EDT [place] [address] Vic Eugene, DO Second trimester ([facility]); 27 weeks gestation of ([facility]); Monochorionic diamniotic twin gestation in second trimester ([facility]) 12/14/2024 [place] [address] Vic Eugene, DO 12/14/2024 [place] [address] Vic Eugene, DO 12/07/2024 Travel 12/06/2024 Abstract [facility] [address] [place] [address] Vic Eugene, 12/01/2024 Abstract [facility] [address] [place] [address] Ximena Aly [place] 11/30/2024 1:00 PM EDT Routine [facility] [address] [place] [address] Vic Eugene, DO Second trimester ([facility]); 25 weeks gestation of ([facility]); Monochorionic diamniotic twin gestation in second trimester ([facility]) 11/30/2024 Bamboo flowsheet [facility] [address] [place] [address] Vic Eugene, DO 11/24/2024 Abstract [facility] [address] [place] [address] [place] [address] Vic Eugene, DO 11/24/2024 Telephone [facility] [address] [place] [address] [place] [address] Vic Eugene, DO 11/24/2024 Clinisync Result Encounter [facility] External Department Unsolicited Vic Eugene, DO 11/23/2024 Travel 11/22/2024 Abstract [facility] [address] [place] [address] Vic Eugene, DO 11/22/2024 Abstract [facility] [address] [place] [address] Vic Eugene, DO 11/16/2024 2:20 PM EDT Routine [facility] [address] [place] [address] Vic Eugene, DO Second trimester ([facility]); 23 weeks gestation of ([facility]); Diabetes mellitus screening; Monochorionic diamniotic twin gestation in second trimester ([facility]) 11/16/2024 Bamboo flowsheet [facility] [address] [place] [address] Vic Eugene, 11/09/2024 Travel 11/02/2024 Abstract [facility] [address] [place] [address] Ximena Aly [place] 10/27/2024 Abstract [facility] [address] [facility] [place] [address] Vic Eugene, 10/20/2024 3:50 PM EDT Routine [facility] [address] [facility] [place] [address] Vic Eugene, DO 19 weeks gestation of ([facility]); Second trimester ([facility]) 10/20/2024 Bamboo flowsheet [facility] [address] [place] [address] Vic Eugene, 10/13/2024 Travel 10/12/2024 Abstract [facility] [address] [place] [address] Vic Eugene, DO 10/11/2024 Abstract [facility] [address] [place] [address] Vic Eugene, DO 10/01/2024 Orders Only [facility] [address] [facility] [place] [address] Ximena Aly MA from Last 3 Months Family History Medical [...] EDT Routine [facility] [address] [place] [address] Vic Eugene, DO [address] [place] [address] 03/28/2025 2:00 PM EST Office Visit [facility] [address] [place] [address] Vic Eugene, DO [address] [place], [place] [id number] Goals Goal Patient Goal Type Associated Problems Recent Progress Patient-Stated? Author Reminders Care Plan OB Reminders No Open Scheduling, Background Procedures Procedure Name Priority Date/Time Associated Diagnosis Comments US OB BPP W NON-STRESS 12/28/2024 3:38 PM EDT US OB BPP W NON-STRESS 12/28/2024 3:38 PM EDT US OB BPP W NON-STRESS 12/24/2024 2:02 PM EDT US OB BPP W NON-STRESS 12/21/2024 3:00 PM EDT US OB BPP W NON-STRESS 12/21/2024 3:00 PM EDT POCT URINALYSIS DIPSTICK Routine 12/14/2024 2:03 PM EDT Second trimester ([facility]) GLUCOSE 1 HOUR Routine 11/24/2024 1:13 PM EDT ALL CBC WITH AUTO DIFF Routine 11/24/2024 1:13 PM EDT POCT URINALYSIS DIPSTICK Routine 10/20/2024 4:19 PM EDT 19 weeks gestation of ([facility]) Second trimester ([facility]) from Last 3 Months Results * US OB BPP W NON-STRESS (12/28/2024 3:38 PM EDT) Only the most recent of5 resultswithin the time period is included. Anatomical Region Laterality Modality Other 12/28/2024 3:38 PM EDT Narrative 12/28/2024 3:41 PM EDT The [address] [address] Ultrasound Report Signed Patient: MINNIE BUNCH MR#: [id number] : 1995 Acct:[id number] Age/Sex: 29 / F ADM Date: 12/28/24 Loc: US Attending Dr: Vic Eugene D.O. Ordering Physician: Vic Eugene D.O. Date of Service: 12/28/24 Procedure(s): US OB BPP w non-stress Accession Number(s): [id number] cc: Vic Eugene D.O.; Marlon Laguna M.D. The [place] [id number] Patient Name: MINNIE BUNCH MRN: [facility]:[id number] date: 1995 Sex: F Assigned Patient Location: [facility] Current Patient Location: Accession/Order Number: [id number] Exam Date: 12/28/2024 15:37 Report Date: 12/28/2024 15:38 At the request of: VIC EUGENE DO Procedure: US OB BPP w non-stress Biophysical profile. Reason for exam: Twin COMPARISON: 12/24/2024 TECHNIQUE: The sagger preparer reports a fetus A BPP of 8 out of 8. MVP is 4.8 cm. heart rate 141 bpm. The sagger preparer reports fetus B BPP of 8 out of 8. MVP is 5.7 cm. heart rate 150 bpm. US/US OB BPP w non-stress IMPRESSION: BPP 8out of 8 for Fetus A. BPP 8 out of 8 for fetus B. Impression dictated by: Barrington Spears Jr., D.O. 12/28/2024 3:38 PM Dictation Location: [place] [address] Electronically authenticated by: [id number] Y Date: 12/28/2024 15:38 Dictated By: Barrington Spears M.D. Signed By: 12/28/24 1541 DD/ 1538 TD/TT: Radio Mechanic: Procedure Note Radiology, Radiologist, - 12/28/2024 [place] [address] Ultrasound Report Signed Patient: MINNIE BUNCH AMR#: [id number] : 1995Acct:[id number] Age/Sex: 29 / FADM Date: 12/28/24 Loc: US Attending Dr: Vic Eugene D.O. Ordering Physician: Vic Eugene D.O. Date of Service: 12/28/24 Procedure(s): US OB BPP w non-stress Accession Number(s): [id number] cc: Vic Eugene D.O.; Marlon Laguna M.D. [place] [id number] Patient Name: MINNIE BUNCH MRN: [facility]:[id number] date: 1995 Sex: F Assigned Patient Location: [facility] Current Patient Location: Accession/Order Number: [id number] Exam Date: 12/28/2024 15:37 Report Date: 12/28/2024 15:38 At the request of: VIC EUGENE DO Procedure: US OB BPP w non-stress Biophysical profile. Reason for exam: Twin COMPARISON: 12/24/2024 TECHNIQUE: The sagger preparer reports a fetus A BPP of 8 out of 8. MVP is4.8 cm. heart rate 141 bpm. The sagger preparer reports fetus B BPP of 8 out of 8. MVP is 5.7 cm. heart rate 150 bpm. US/US OB BPP w non-stress IMPRESSION: BPP 8out of 8 for Fetus A. BPP 8 out of 8 for fetus B. Impression dictated by: Barrington Spears Jr., D.O. 12/28/2024 3:38 PM Dictation Location: [place] [address] Electronically authenticated by: [id number] Y Date: 5:38 Dictated By: Barrington Spears M.D. Signed By:12/28/24 1541 DD/ 1538 TD/TT: Radio Mechanic: Vic Eugene DO [facility] Final Result [...] GLUCOSE 1 HOUR (11/24/2024 1:13 PM EDT) Pathologist [facility] GLUCOSE 1 HOUR 165(H) <130 mg/dL [facility] 11/24/2024 1:13 PM EDT 11/24/2024 1:34 PM EDT Narrative [facility] - 11/24/2024 1:58 PM EDT Vic Valorie DO LAB BLOOD ORDERABLES Final Resul t [facility] * (ABNORMAL) ALL CBC WITH AUTO DIFF (11/24/2024 1:13 PM EDT) TB WBC 10.0 4.0 - 11.0 10 [...] Vic Valorie DO [facility] Final Result [facility] TB from Last 3 Months Additional Health Concerns Active Problems Noted Date Diagnosed Date OB Reminders 08/14/2024 Insurance Care Teams General Teller Relationship Specialty Start Date End Date Marlon Laguna MD [address] [place] [phone] PCP - General Family Medicine 08/29/23 Vic Eugene DO [address] [place] [address] [place] [address] Referring Physician Obstetrics and Gynecology 08/16/24
--- OUTSIDE RECORDS SUMMARY | 2024-12-30 08:18 | XMS_ITS | Encounter Summary ---
Author Organization [facility] Address [address] [place] [address] Care Team Providers Care Senior Analyst Developer Name Role Phone Marlon Laguna MD Primary Care Provider [phone] Saul Eugene DO Unavailable Encounter Details Date Type Department Care Team (Late st Contact Info) Description 09/12/2023 Clinisync Result Encounter [facility] External Department Unsolicited Saul Eugene DO [address] [place], [place] [phone] Social History Tobacco Use Types Packs/Day Years [...] AM EDT Routine [facility] [address] [place] [phone] Saul Eugene DO [address] [place] [address] 03/28/2025 2:00 PM EST Office Visit [facility] [address] [place] [address] Saul Eugene DO [address] [place] [address] documented as of this encounter Procedures Procedure Name Priority Date/Time Associated Diagnosis Comments US BREAST LT LIMITED 09/12/2023 2:31 PM EDT documented in this encounter Results * US BREAST LT LIMITED (09/12/2023 2:31 PM EDT) Anatomical Region Laterality Modality Other 09/12/2023 2:31 PM EDT Narrative 09/12/2023 2:32 PM EDT [address] [address] Ultrasound Report Signed Patient: MINNIE SWIFT MR#: [id number] : 1995 Acct:[id number] Age/Sex: 28 / F ADM Date: 09/10/23 Loc: US Attending Dr: Saul Eugene D.O. Ordering Physician: Saul Eugene D.O. Date of Service: 09/10/23 Procedure(s): US breast LT limited Accession Number(s): [id number] cc: Saul Eugene D.O.; Marlon Laguna M.D. Patient Name: MINNIE SWIFT MR#: [id number] : 1995 Exam Date: 09/10/2023 Ordering Doctor: [...] Signed By: 09/12/23 1432 DD/ 1431 TD/TT: Tape Cutting Machine Operator: Procedure Note Radiology, Radiologist, MD - 09/12/2023 [place] [address] Ultrasound Report Signed Patient: MINNIE SWIFT AMR#: [id number] : 1995Acct:[id number] Age/Sex: Date: 09/10/23 Loc: US Attending Dr: Saul Eugene D.O. Ordering Physician: Saul Eugene D.O. Date of Service: 09/10/23 Procedure(s): US breast LT limited Accession Number(s): [id number] cc: Saul Eugene D.O.; Marlon Laguna M.D. Patient Name: MINNIE SWIFT MR#: [id number] : 1995 Exam Date: 09/10/2023 Ordering Doctor: [...] M.D. Signed By:09/12/23 1432 DD/ 1431 TD/TT: Tape Cutting Machine Operator: Saul Eugene DO [facility] Final Result documented in this encounter Visit Diagnoses Not on filedocumented in this encounter Care Teams Senior Analyst Developer Relationship Specialty Start Date End Date Marlon Laguna MD [address] [place] [address] PCP - General Family Medicine 08/29/23 Saul Eugene DO [address] [place] [address] [place] [address] Referring Physician Obstetrics and Gynecology 08/16/24 documented as of this encounter
--- OUTSIDE RECORDS SUMMARY | 2024-12-30 08:19 | XMS_ITS | Patient Health Record ---
Author Organization [facility] in [place] Address [address] [place] [address] Care Team Providers Care Metal Drawer Name Role Phone Harsh Laguna Primary Care Provider [phone] Allergies No Known Allergies Results Component Value Reference Range Notes IGP,Aptima HPV,Age Gdln Reviewed date:02/29/2024 10:30:54 AM Interpretation: Performing Lab: Notes/Report: BRUSH-SPATULA CERVIX ENDOCERVIX [facility] , Age Gdln ACOG Testing Note . 01 =G [facility] FLAG LEGEND: No. of containers..01 ThinPrep Vial Age Algo ACOG Jill... 21-29 01 Performed at: [address] [facility] [place] [address] Clinician Provided Cytology Information Yuni Barakat MD, Source.............Cervi x;Endocervix L-Low Normal,H-High Normal,LL-Alert Low,HH-Alert High <-Panic Low,>-Panic High,A-Abnormal,AA-Criti winsome Abnormal TESTS RESULT FLAG UNITS REF RANGE LAB IGP, rfx Aptima HPV ASCU Note . <-Panic Low,>-Panic High,A-Abnormal,AA-Criti winsome Abnormal . 02 Performed at: Yuni Barakat MD, Reference Test Clerk: Yuni Barakat MD, Phone: [phone] Performed at: =[facility] detection of premalignant and malignant conditions of the This liquid based ThinPrep(R) pap test was screened with TESTS RESULT FLAG UNITS REF RANGE LAB Performed by: 02 Note: Note 02 L-Low Normal,H-High Normal,LL-Alert Low,HH-Alert High [address] [place] [address], [place] [phone] Test Methodology: Note 02 Reference Test Clerk: Yuni Barakat MD, Phone: [phone] should not be used as the sole means of detecting cervical . [address] [place], [place] [address] [place] [phone] uterine cervix. It is not a diagnostic procedure and NEGATIVE FOR INTRAEPITHELIAL LESION OR MALIGNANCY. cells (endocervical component) are present. Specimen adequacy: 02 The Pap smear is a screening test designed to aid in the result therefore, no HPV testing was performed. [address] [facility] [place] [address] Performed at: [facility] 02 WB [facility] [place] cancer. Both false-positive and false-negative reports do The HPV DNA reflex criteria were not met with this specimen Satisfactory for evaluation. Endocervical and/or squamous metaplastic occur. the use of an image guided system. Zak Coyle, Consulting Services Manager (ASCP) DIAGNOSIS: 02 FLAG LEGEND: Performing Lab: see note LC - [facility] LB CBC AUTO DIFF Reviewed date:08/13/2024 04:12:48 PM Interpretation: Performing Lab: Notes/Report: [facility] , White Blood Count 5.9 4.0-11.0 [...] 3/uL Performing Lab: see note ML - [facility] LB DRUG SCREEN RAPID (URINE) Reviewed date:08/13/2024 04:12:48 PM Interpretation: Performing Lab: Notes/Report: [facility] , Cannabinoid Screen Urine NEGATIVE NEGATIVE [...] ng/mL Performing Lab: see note ML - [facility] LB Type and Screen Reviewed date:08/13/2024 04:12:48 PM Interpretation: Performing Lab: Notes/Report: [facility] , Blood Type A Positive Antibody Screen NEGATIVE Urine Culture, Routine Reviewed date:08/15/2024 09:38:56 AM Interpretation: Performing Lab: Notes/Report: [facility] , Urine Culture, Routine See Below For Report Urine Culture, Routine Urine Culture, Routine No growth Urine Culture, Routine Urine Culture, Routine Performed at: - [facility] [place] Urine Culture, Routine Urine Culture, Routine [address] [place], [place] [phone] Urine Culture, Routine Urine Culture, Routine Reference Test Clerk: Reuben Oviedo PhD, Phone: [phone] Urine Culture, Routine Performing Lab: see note LC - [facility] LB SEE REPORT - Sales Representatives Id information not found for OBX-specific senior interactive producer legend Glucose 1 Hour Reviewed date:11/24/2024 06:33:39 PM Interpretation: Performing Lab: Notes/Report: [facility] , Glucose 1 Hour 165 <130 mg/dL Performing Lab: see note ML - [facility] US OB BPP w non-stress Reviewed date:12/26/2024 07:41:14 PM Interpretation: Performing Lab: Notes/Report: Source Facility: [place] [address] [place] [address] Ultrasound Report Signed Patient: MINNIE BUNCH MR#: [id number] : 1995 Acct:[id number] Age/Sex: 29 / F ADM Date: 12/24/24 Loc: FBCO Attending Dr: Vic Eugene D.O. Ordering Physician: LIZABETH BOOKER M.D. Date of Service: 12/24/24 Procedure(s): US OB BPP w non-stress Accession Number(s): [id number] cc: LIZABETH BOOKER M.D.; Marlon Laguna M.D. [place] [address] Patient Name: MINNIE BUNCH MRN: [facility]:[id number] date: 1995 Sex: F Assigned Patient Location: [facility] Current Patient Location: Accession/Order Number: [id number] Exam Date: 12/24/2024 14:00 Report Date: 12/24/2024 14:02 At the request of: LIZABETH BOOKER MD Procedure: US OB BPP w non-stress Biophysical profile. Reason for exam: Twin COMPARISON: 12/21/2024 TECHNIQUE: The commodities clerk reports a fetus A BPP of 8 out of 8. MVP is 8.4 cm. heart rate 163 bpm. The commodities clerk reports fetus B BPP of 8 out of 8. MVP is 5.4 cm. heart rate 147 bpm. US/US OB BPP w non-stress IMPRESSION: BPP 8out of 8 for Fetus A. BPP 8 out of 8 for fetus B. Impression dictated by: Barrington Spears Jr., D.O. 12/24/2024 2:02 PM Dictation Location: [place] [address] Electronically authenticated by: [id number] Y Date: 12/24/2024 14:02 Dictated By: Barrington Spears M.D. Signed By: 12/24/24 1405 DD/ 01 TD/TT: Teacher Learning Disabled: [place] [address] Ultrasound Report Signed Patient: MINNIE BUNCH MR#: [id number] : 1995 Acct:[id number] Age/Sex: 29 / F ADM Date: 12/24/24 Loc: FBCO Attending Dr: Vic Eugene D.O. Ordering Physician: LIZABETH BOOKER M.D. Date of Service: 12/24/24 Procedure(s): US OB BPP w non-stress Accession Number(s): [id number] cc: ANIVAL BOKOER M.D.; Marlon Laguna M.D. [place] [address] Patient Name: MINNIE BUNCH MRN: [facility]:[id number] date: 1995 Sex: F Assigned Patient Location: [facility] Current Patient Location: Accession/Order Number: [id number] Exam Date: 12/24/2024 14:00 Report Date: 12/24/2024 14:02 At the request of: LIZABETH BOOKER MD Procedure: US OB BPP w non-stress Biophysical profile. Reason for exam: Twi n COMPARISON: 12/21/2024 TECHNIQUE: The commodities clerk reports a fetus A BPP of 8 out of 8. MVP is 8.4 cm. heart rate 163 bpm. The commodities clerk reports fetus B BPP of 8 out of 8. MVP is 5.4 cm. heart rate 147 bpm. US/US OB BPP w non-stress IMPRESSION: BPP 8out of 8 for Fetus A. BPP 8 out of 8 for fetus B. Impression dictated by: Barrington Spears Jr., D.O. 12/24/2024 2:02 PM Dictation Location: [place] [address] Electronically authenticated by: [id number] Y Date: 12/24/2024 14:02 Dictated By: Barrington Spears M.D. Signed By: 12/24/24 1405 DD/ 140 TD/TT: Teacher Learning Disabled: US OB BPP w non-stress Reviewed date:12/26/2024 07:41:14 PM Interpretation: Performing Lab: Notes/Report: Source Facility: [place] [address] Ultrasound Report Signed Patient: MINNIE BUNCH MR#: [id number] : 1995 Acct:[id number] Age/Sex: 29 / F ADM Date: 12/24/24 Loc: [place] Attending Dr: Vic Eugene D.O. Ordering Physician: Vic Eugene D.O. Date of Service: 12/24/24 Procedure(s): US OB BPP w non-stress Accession Number(s): [id number] cc: Vic Eugene D.O.; Marlon Laguna M.D. [place] [address] Patient Name: MINNIE BUNCH MRN: [facility]:[id number] date: 1995 Sex: F Assigned Patient Location: [facility] Current Patient Location: Accession/Order Number: [id number] Exam Date: 12/24/2024 14:00 Report Date: 12/24/2024 14:02 At the request of: VIC EUGENE DO Procedure: US OB BPP w non-stress Biophysical profile. Reason for exam: Twin COMPARISON: 12/21/2024 TECHNIQUE: The commodities clerk reports a fetus A BPP of 8 out of 8. MVP is 8.4 cm. heart rate 163 bpm. The commodities clerk reports fetus B BPP of 8 out of 8. MVP is 5.4 cm. heart rate 147 bpm. US/US OB BPP w non-stress IMPRESSION: BPP 8out of 8 for Fetus A. BPP 8 out of 8 for fetus B. Impression dictated by: Barrington Spears Jr., D.O. 12/24/2024 2:02 PM Dictation Location: [place] [address] Electronically authenticated by: [id number] Y Date: 12/24/2024 14:02 Dictated By: Barrington Spears M.D. Signed By: 12/24/24 1405 DD/ 140 TD/TT: Teacher Learning Disabled: [place] [address] Ultrasound Report Signed Patient: MINNIE BUNCH MR#: [id number] : 1995 Acct:[id number] Age/Sex: 29 / F ADM Date: 12/24/24 Loc: [facility] Attending Dr: Vic Eugene D.O. Ordering Physician: Vic Eugene D.O. Date of Service: 12/24/24 Procedure(s): US OB BPP w non-stress Accession Number(s): [id number] cc: Vic Eugene D.O. ; Marlon Laguna M.D. [place] [address] Patient Name: MINNIE BUNCH MRN: [facility]:[id number] date: 1995 Sex: F Assigned Patient Location: [facility] Current Patient Location: Accession/Order Number: [id number] Exam Date: 12/24/2024 14:00 Report Date: 12/24/2024 14:02 At the request of: VIC EUGENE DO Procedure: US OB BPP w non-stress Biophysical profile. Reason for exam: Twi n COMPARISON: 12/21/2024 TECHNIQUE: The commodities clerk reports a fetus A BPP of 8 out of 8. MVP is 8.4 cm. heart rate 163 bpm. The commodities clerk reports fetus B BPP of 8 out of 8. MVP is 5.4 cm. heart rate 147 bpm. US/US OB BPP w non-stress IMPRESSION: BPP 8out of 8 for Fetus A. BPP 8 out of 8 for fetus B. Impression dictated by: Barrington Spears Jr., D.O. 12/24/2024 2:02 PM Dictation Location: [place] [address] Electronically authenticated by: [id number] Y Date: 12/24/2024 14:02 Dictated By: Barrington Spears M.D. Signed By: 12/24/24 1405 DD/ 140 TD/TT: Teacher Learning Disabled: US OB BPP w non-stress Reviewed date:12/29/2024 08:36:12 AM Interpretation: Performing Lab: Notes/Report: Source Facility: [place] [address] Ultrasound Report Signed Patient: MINNIE BUNCH MR#: [id number] : 1995 Acct:[id number] Age/Sex: 29 / F ADM Date: 12/28/24 Loc: US Attending Dr: Vic Eugene D.O. Ordering Physician: Vic Eugene D.O. Date of Service: 12/28/24 Procedure(s): US OB BPP w non-stress Accession Number(s): [id number] cc: Vic Eugene D.O.; Marlon Laguna M.D. [place] [address] Patient Name: MINNIE BUNCH MRN: [facility]:[id number] date: 1995 Sex: F Assigned Patient Location: [facility] Current Patient Location: Accession/Order Number: [id number] Exam Date: 12/28/2024 15:37 Report Date: 12/28/2024 15:38 At the request of: VIC EUGENE DO Procedure: US OB BPP w non-stress Biophysical profile. Reason for exam: Twin COMPARISON: 12/24/2024 TECHNIQUE: The commodities clerk reports a fetus A BPP of 8 out of 8. MVP is 4.8 cm. heart rate 141 bpm. The commodities clerk reports fetus B BPP of 8 out of 8. MVP is 5.7 cm. heart rate 150 bpm. US/US OB BPP w non-stress IMPRESSION: BPP 8out of 8 for Fetus A. BPP 8 out of 8 for fetus B. Impression dictated by: Barrington Spears Jr., D.O. 12/28/2024 3:38 PM Dictation Location: [place] [address] Electronically authenticated by: [id number] Y Date: 12/28/2024 15:38 Dictated By: Barrington Spears M.D. Signed By: 12/28/24 1541 DD/ 1538 TD/TT: Teacher Learning Disabled: [place] [address] Ultrasound Report Signed Patient: MINNIE BUNCH MR#: [id number] : 1995 Acct:[id number] Age/Sex: 29 / F ADM Date: 12/28/24 Loc: US Attending Dr: Vic Eugene D.O. Ordering Physician: Vic Eugene D.O. Date of Service: 12/28/24 Procedure(s): US OB BPP w non-stress Accession Number(s): [id number] cc: Vic Eugene D.O. ; Marlon Laguna M.D. [place] [address] Patient Name: MINNIE BUNCH MRN: [id number]:[id number] date: 1995 Sex: F Assigned Patient Location: [facility] Current Patient Location: Accession/Order Number: [id number] Exam Date: 12/28/2024 15:37 Report Date: 12/28/2024 15:38 At the request of: VIC EUGENE DO Procedure: US OB BPP w non-stress Biophysical profile. Reason for exam: Twi n COMPARISON: 12/24/2024 TECHNIQUE: The commodities clerk reports a fetus A BPP of 8 out of 8. MVP is 4.8 cm. heart rate 141 bpm. The commodities clerk reports fetus B BPP of 8 out of 8. MVP is 5.7 cm. heart rate 150 bpm. US/US OB BPP w non-stress IMPRESSION: BPP 8out of 8 for Fetus A. BPP 8 out of 8 for fetus B. Impression dictated by: Barrington Spears Jr., D.O. 12/28/2024 3:38 PM Dictation Location: [facility] Electronically authenticated by: [id number] Y Date: 12/28/2024 15:38 Dictated By: Barrington Spears M.D. Signed By: 12/28/24 1541 DD/ 1538 TD/TT: Teacher Learning Disabled: US OB BPP w non-stress Reviewed date:12/29/2024 08:36:12 AM Interpretation: Performing Lab: Notes/Report: Source Facility: [place] [address] Ultrasound Report Signed Patient: MINNIE BUNCH MR#: [id number] : 1995 Acct:[id number] Age/Sex: 29 / F ADM Date: 12/28/24 Loc: US Attending Dr: Vic Eugene D.O. Ordering Physician: Vic Eugene D.O. Date of Service: 12/28/24 Procedure(s): US OB BPP w non-stress Accession Number(s): [id number] cc: Vic Eugene D.O.; Marlon Laguna M.D. [place] [address] Patient Name: MINNIE BUNCH MRN: [facility]:[id number] date: 1995 Sex: F Assigned Patient Location: Current Patient Location: Accession/Order Number: [id number] Exam Date: 12/28/2024 15:37 Report Date: 12/28/2024 15:38 At the request of: VCI EUGENE DO Procedure: US OB BPP w non-stress Biophysical profile. Reason for exam: Twin COMPARISON: 12/24/2024 TECHNIQUE: The commodities clerk reports a fetus A BPP of 8 out of 8. MVP is 4.8 cm. heart rate 141 bpm. The commodities clerk reports fetus B BPP of 8 out of 8. MVP is 5.7 cm. heart rate 150 bpm. US/US OB BPP w non-stress IMPRESSION: BPP 8out of 8 for Fetus A. BPP 8 out of 8 for fetus B. Impression dictated by: Barrington Spears Jr., D.O. 12/28/2024 3:38 PM Dictation Location: [place] [address] Electronically authenticated by: [id number] Y Date: 12/28/2024 15:38 Dictated By: Barrington Spears M.D. Signed By: 12/28/24 1541 DD/ 1538 TD/TT: Teacher Learning Disabled: [place] [address] Ultrasound Report Signed Patient: MINNIE BUNCH MR#: [id number] : 1995 Acct:[id number] Age/Sex: 29 / F ADM Date: 12/28/24 Loc: US Attending Dr: Vic Eugene D.O. Ordering Physician: Vic Eugene D.O. Date of Service: 12/28/24 Procedure(s): US OB BPP w non-stress Accession Number(s): [id number] cc: Vic Eugene D.O. ; Marlon Laguna M.D. [place] [id number] Patient Name: MINNIE BUNCH MRN: [id number] date: 1995 Sex: F Assigned Patient Location: US Current Patient Location: Accession/Order Number: [id number] Exam Date: 12/28/2024 15:37 Report Date: 12/28/2024 15:38 At the request of: VIC EUGENE DO Procedure: US OB BPP w non-stress Biophysical profile. Reason for exam: Twi n COMPARISON: 12/24/2024 TECHNIQUE: The commodities clerk reports a fetus A BPP of 8 out of 8. MVP is 4.8 cm. heart rate 141 bpm. The commodities clerk reports fetus B BPP of 8 out of 8. MVP is 5.7 cm. heart rate 150 bpm. US/US OB BPP w non-stress IMPRESSION: BPP 8out of 8 for Fetus A. BPP 8 out of 8 for fetus B. Impression dictated by: Barrington Spears Jr., D.O. 12/28/2024 3:38 PM Dictation Location: [place] [address] Electronically authenticated by: [id number] Y Date: 12/28/2024 15:38 Dictated By: Barrington Spears M.D. Signed By: 12/28/24 1541 DD/ 1538 TD/TT: Teacher Learning Disabled: US OB BPP w non-stress Reviewed date:12/21/2024 03:07:55 PM Interpretation: Performing Lab: Notes/Report: Source Facility: [place] [address] Ultrasound Report Signed Patient: MINNIE BUNCH MR#: [id number] : 1995 Acct:[id number] Age/Sex: 29 / F ADM Date: 12/21/24 Loc: US Attending Dr: Vic Eugene D.O. Ordering Physician: Vic Eugene D.O. Date of Service: 12/21/24 Procedure(s): US OB BPP w non-stress Accession Number(s): [id number] cc: Vic Eugene D.O.; Marlon Laguna M.D. [place] [address] Patient Name: MINNIE BUNCH MRN: [id number] date: 1995 Sex: F Assigned Patient Location: US Current Patient Location: Accession/Order Number: [id number] Exam Date: 12/21/2024 14:56 Report Date: 12/21/2024 15:00 At the request of: VIC EUGENE DO Procedure: US OB BPP w non-stress Biophysical profile. Reason for exam: No chorionic diamniotic twin gestation. COMPARISON: None TECHNIQUE: Transabdominal imaging of the gravid uterus was obtained. FINDINGS: The commodities clerk reports a fetus A BPP of 6 out of 8 with 0 points for breathing.. MVP is 6.3 cm. heart rate 135 bpm. The commodities clerk reports fetus B BPP of 8 out of 8. MVP is 3.7 cm. heart rate 139 bpm. US/US OB BPP w non-stress IMPRESSION: BPP 6out of 8 for Fetus A. Correlation with NST is recommended. BPP 8 out of 8 for fetus B. Impression dictated by: Barrington Spears Jr., D.O. 12/21/2024 3:00 PM Dictation Location: [place] [address] Electronically authenticated by: [id number] Y Date: 12/21/2024 15:00 Dictated By: Barrington Spears M.D. Signed By: 12/21/24 1502 DD/ 1500 TD/TT: Teacher Learning Disabled: [place] [address] Ultrasound Report Signed Patient: MINNIE BUNCH MR#: [id number] : 1995 Acct:[id number] Age/Sex: 29 / F ADM Date: 12/21/24 Loc: US Attending Dr: Vic Eugene D.O. Ordering Physician: Vic Eugene D.O. Date of Service: 12/21/24 Procedure(s): US OB BPP w non-stress Accession Number(s): [id number] cc: Vic Eugene D.O. ; Marlon Laguna M.D. [place] [address] Patient Name: MINNIE BUNCH MRN: [id number]:[id number] date: 1995 Sex: F Assigned Patient Location: US Current Patient Location: Accession/Order Number: [id number] Exam Date: 12/21/2024 14:56 Report Date: 12/21/2024 15:00 At the request of: VIC EUGENE DO Procedure: US OB BPP w non-stress Biophysical profile. Reason for exam: No chorionic diamniotic twin gestation. COMPARISON: None TECHNIQUE: Transabdominal imaging of the gravid uterus was obtained. FINDINGS: The commodities clerk reports a fetus A BPP of 6 out of 8 with 0 points for breathing. . MVP is 6.3 cm. heart rate 135 bpm. The commodities clerk reports fetus B BPP of 8 out of 8. MVP is 3.7 cm. heart rate 139 bpm. US/US OB BPP w non-stress IMPRESSION: BPP 6out of 8 for Fetus A. Correlation with NST is recommended. BPP 8 out of 8 for fetus B. Impression dictated by: Barrington Spears Jr., D.O. 12/21/2024 3:00 PM Dictation Location: [place] [address] Electronically authenticated by: [id number] Y Date: 12/21/2024 15:00 Dictated By: Barrington Spears M.D. Signed By: 12/21/24 1502 DD/ 1500 TD/TT: Teacher Learning Disabled: US OB BPP w non-stress Reviewed date:12/21/2024 03:07:55 PM Interpretation: Performing Lab: Notes/Report: Source Facility: [place] [address] Ultrasound Report Signed Patient: MINNIE BUNCH MR#: [id number] : 1995 Acct:[id number] Age/Sex: 29 / F ADM Date: 12/21/24 Loc: US Attending Dr: Vic Eugene D.O. Ordering Physician: Vic Eugene D.O. Date of Service: 12/21/24 Procedure(s): US OB BPP w non-stress Accession Number(s): [id number] cc: Vic Eguene D.O.; Marlon Laguna M.D. [place] [address] Patient Name: MINNIE BUNCH MRN: [id number] date: 1995 Sex: F Assigned Patient Location: US Current Patient Location: Accession/Order Number: [id number] Exam Date: 12/21/2024 14:56 Report Date: 12/21/2024 15:00 At the request of: VIC EUGENE DO Procedure: US OB BPP w non-stress Biophysical profile. Reason for exam: No chorionic diamniotic twin gestation. COMPARISON: None TECHNIQUE: Transabdominal imaging of the gravid uterus was obtained. FINDINGS: The commodities clerk reports a fetus A BPP of 6 out of 8 with 0 points for breathing.. MVP is 6.3 cm. heart rate 135 bpm. The commodities clerk reports fetus B BPP of 8 out of 8. MVP is 3.7 cm. heart rate 139 bpm. US/US OB BPP w non-stress IMPRESSION: BPP 6out of 8 for Fetus A. Correlation with NST is recommended. BPP 8 out of 8 for fetus B. Impression dictated by: Barrington Spears Jr., D.O. 12/21/2024 3:00 PM Dictation Location: [facility] Electronically authenticated by: [id number] Y Date: 12/21/2024 15:00 Dictated By: Barrington Spears M.D. Signed By: 12/21/24 1502 DD/ 1500 TD/TT: Teacher Learning Disabled: [place] [address] Ultrasound Report Signed Patient: MINNIE BUNCH MR#: [id number] : 1995 Acct:[id number] Age/Sex: 29 / F ADM Date: 12/21/24 Loc: US Attending Dr: Vic Eugene D.O. Ordering Physician: Vic Eugene D.O. Date of Service: 12/21/24 Procedure(s): US OB BPP w non-stress Accession Number(s): [id number] cc: Vic Eugene D.O. ; Marlon Laguna M.D. [place] [phone] Patient Name: MINNIE BUNCH MRN: [facility]:[id number] date: 1995 Sex: F Assigned Patient Location: Current Patient Location: Accession/Order Number: [id number] Exam Date: 12/21/2024 14:56 Report Date: 12/21/2024 15:00 At the request of: VIC EUGENE DO Procedure: US OB BPP w non-stress Biophysical profile. Reason for exam: No chorionic diamniotic twin gestation. COMPARISON: None TECHNIQUE: Transabdominal imaging of the gravid uterus was obtained. FINDINGS: The commodities clerk reports a fetus A BPP of 6 out of 8 with 0 points for breathing. . MVP is 6.3 cm. heart rate 135 bpm. The commodities clerk reports fetus B BPP of 8 out of 8. MVP is 3.7 cm. heart rate 139 bpm. US/US OB BPP w non-stress IMPRESSION: BPP 6out of 8 for Fetus A. Correlation with NST is recommended. BPP 8 out of 8 for fetus B. Impression dictated by: Barrington Spears Jr., D.O. 12/21/2024 3:00 PM Dictation Location: [facility] Electronically authenticated by: [id number] Y Date: 12/21/2024 15:00 Dictated By: Barrington Spears M.D. Signed By: 12/21/24 1502 DD/ 1500 TD/TT: Teacher Learning Disabled: CBC AUTO DIFF Reviewed date:11/24/2024 06:33:39 PM Interpretation: Performing Lab: Notes/Report: [facility] , White Blood Count 10.0 4.0-11.0 10 [...] Performing Lab: see note ML - [facility] LB IGP,Aptima HPV,Age Gdln Reviewed date:09/27/2024 07:57:34 PM Interpretation: Performing Lab: Notes/Report: SPATULA-ALONE CERVIX [facility] , Age Gdln ACOG Testing Note . 01 =G [facility] [place] TESTS RESULT FLAG UNITS REF RANGE LAB Source.............Cervi x <-Panic Low,>-Panic High,A-Abnormal,AA-Criti winsome Abnormal Performed at: Other..............Pregn ant Clinician Provided Cytology Information L-Low Normal,H-High Normal,LL-Alert Low,HH-Alert High Age Algo ACOG Jill... 21-29 FLAG LEGEND: No. of containers..01 ThinPrep Vial [address] [place], [place] [address] [address] Yuni Barakat MD, IGP, rfx Aptima HPV ASCU Note . Specimen adequacy: DIAGNOSIS: 02 FLAG LEGEND: Satisfactory for evaluation. No endocervical component is identified. Note: Note 02 L-Low Normal,H-High Normal,LL-Alert Low,HH-Alert High Reference Test Clerk: Yuni Barakat MD, Phone: [phone] cancer. Both false-positive and false-negative reports do the use of an image guided system. Performed at: - [facility] should not be used as the sole means of detecting cervical uterine cervix. It is not a diagnostic procedure and This liquid based ThinPrep(R) pap test was screened with [address] [place] [address], [place] [id number] result therefore, no HPV testing was performed. NEGATIVE FOR INTRAEPITHELIAL LESION OR MALIGNANCY. Performed at: =[facility] detection of premalignant and malignant conditions of the occur. Yuni Barakat MD, . [address] [place] [address], [place] [phone] Reference Test Clerk: Yuni Barakat MD, Phone: [phone] The Pap smear is a screening test designed to aid in the [address] [place] [id number] TESTS RESULT FLAG UNITS REF RANGE LAB Karen Fitzgerald, Percussion Instructor (ASC) . 06 27 WB [facility] Rick Performed by: 02 Performed at: Test Methodology: Note 02 An endocervical component is not commonly seen in the patient. The HPV DNA reflex criteria were not met with this specimen <-Panic Low,>-Panic High,A-Abnormal,AA-Criti winsome Abnormal Performing Lab: see note - [facility] LB HBsAg Screen Reviewed date:08/14/2024 12:25:02 PM Interpretation: Performing Lab: Notes/Report: [facility] , HBsAg Screen Negative Negative Performed at: [address] [id number] Reference Test Clerk: Gen Oviedo PhD, Phone: [phone] Performing Lab: see note - [facility] LB HCV Antibody RFX to Quant PC [...] Reagin (RPR) Test With Reflex to Quantitative Reference Test Clerk: Gen Oviedo PhD, Phone: [phone] infection, a reflex cascade that includes both RPR and a intended for following treatment response in patients being Performed at: [facility] RPR and Confirmatory Treponema pallidum Antibodies Please Note: This test does not meet current guidelines for treponema-specific assay should be utilized, such as (012316). screening and diagnosis of syphilis. This test is Treponema pallidum (Syphilis) Screening [place] ([id number]) or [address] [place] [phone] treated for syphilis infection. To screen for syphilis Performing Lab: see note LC - [facility] LB HIV Ab/p24 Ag with Reflex Reviewed date:08/14/2024 11:30:48 AM Interpretation: Performing Lab: Notes/Report: [facility] , HIV Ab/p24 Ag Screen Non Reactive Non Reactive Reference Test Clerk: Gen Oviedo PhD, Phone: [phone] HIV Negative detected. There is no laboratory evidence of HIV infection. Performed at: [address] [id number] HIV-1/HIV-2 antibodies and HIV-1 p24 antigen were NOT Performing Lab: see note [facility] RUBELLA AB IGG Reviewed date:08/14/2024 11:30:48 AM Interpretation: Performing Lab: Notes/Report: [facility] , Rubella Antibodies, IgG <0.90 Immune > 0.99 index Reference Test Clerk: Gen Oviedo PhD, Phone: [phone] [address] [place] [phone] Performed at: [facility] Equivocal 0.90 - 0.99 Non-immune <0.90 Immune >0.99 Performing Lab: see note [facility] GLYCOHEMOGLOBIN A1C Reviewed date:08/13/2024 04:12:48 PM Interpretation: Performing Lab: Notes/Report: [facility] , Glycohemoglobin A1C 5.4 4.5-6.2 % ADA THERAPEUTIC TARGET < 7.0 ACTION SUGGESTED > 7.0 ADA RECOMMENDED LIMIT 4.0 - 6.0 Estimated Average Glucose 108 Performing Lab: see note - [facility] Reason For Referral No Information Medications Medication [...] Problem Status W/U Status Risk Notes Problem 63220179 Other chronic pain (G89.29) Active confirmed Problem 77977713 Anxiety (F41.9) Active confirmed Problem Palpitation (R00.2) Active confirmed Problem Migraine (63897581) Migraine (G43.909) Active confirmed Problem 314128628 Hypoglycemia (E16.2) Active confirmed Problem Seasonal allergy (018390585) Seasonal allergies (J30.2) Active confirmed Problem 08949443 Left-sided face pain (R51) Active confirmed Problem [id number] Trigeminal neuralgia of left side of face (G50.0) Active confirmed Vital Signs Blood pressure diastolic 78 mm Hg 04/09/2024 Height 62.5 in 04/09/2024 Blood pressure systolic 126 mm Hg 04/09/2024 Weight 143.8 lbs 04/09/2024 BMI 25.88 kg/m2 04/09/2024 Encounters Encounter Location Date Provider Diagnosis [facility] [address] [place] [address] 04/09/2024 Harsh Laguna Migraine G43.909 Assessments Encounter [...] Insured Coverage Start Date Coverage End Date [facility] [address] MARTHA GUPTA [phone] [id number] Binta Bunch Spouse - patient is the spouse of the insured Medical (General) History Medical History History ICD Code Abdominal migraines Anxiety Trigeminal neuralgia Surgical History Surgery Date(Month/Year) wisdom teeth Appendectomy 08/08/2018 Hospitalization History Reason Date(Month/Year) See above
--- OUTSIDE RECORDS SUMMARY | 2024-12-30 08:19 | XMS_ITS | Encounter Summary ---
Author Organization [facility] tem Address [id number] [address] [place] [address] Care Team Providers Care Agricultural Crop Farm Manager Name Role Phone Belén Rooney MD Primary Care Provider + [phone] Reason for Referral * Diagnostic Imaging (Routine) - Pending Review Specialty Diagnoses / Procedures Referred By Burt sellers Referred To Contact Maternal and Medicine Diagnoses Intrauterine growth restriction affecting antepartum care of mother in second trimester, fetus 1 of multiple gestation Monochorionic diamniotic twin gestation in second trimester Velamentous insertion of umbilical cord in third trimester Procedures US MFM with or without consult Alex Subramanian MD [address] [facility], [address] [place] [address] Phone: tel: fax: Maternal- Medicine at [facility] [address] [place] [address] Phone: tel: fax: Referral ID Status Reason Start Date Expiration Date V isits Requested Visits Authorized [id number] Pending Review 12/29/2024 12/29/2025 1 1 Encounter Details Date Type Department Care Team (Late st Contact Info) Description 12/29/2024 Orders Only Maternal- Medicine at [facility] [address] [place] [address] Tressa Das RN Intrauterine growth restriction affecting antepartum care of mother in second trimester, fetus 1 of multiple gestation (Primary Dx); Monochorionic diamniotic twin gestation in second trimester; Velamentous insertion of umbilical cord in third trimester Social History Tobacco Use Types Packs/Day Years Used Date Smoking Tobacco: Never Smokeless Tobacco: Never Alcohol Use Standard Drinks/Week Comments Not Currently 0 (1 standard drink = 0.6 oz pur e alcohol) [facility] Utilities Answer Date Recorded In the [...] Info) Description 01/06/2025 8:45 AM EDT Appointment [facility] US Imaging [address] [place] [address] 01/10/2025 8:30 AM EDT Office Visit Maternal- Medicine at [facility] [address] [place] [address] Jefferson Nava MD [address], [address] [place] [address] 01/12/2025 9:00 AM EDT Appointment [facility] US Imaging [address] [place] [address] Scheduled Orders Name Type Priority Associated Diagnoses Orde r Schedule US MFM with or without consult Imaging Routine Intrauterine growth restriction affecting antepartum care of mother in second trimester, fetus 1 of multiple gestation Monochorionic diamniotic twin gestation in second trimester Velamentous insertion of umbilical cord in third trimester Expected: 12/29/2025 (Approximate), Expires: 12/29/2025 documented as of this encounter Visit Diagnoses Diagnosis Intrauterine growth restriction affecting antepartum care of mother in second trimester, fetus 1 of multiple gestation- Primary Monochorionic diamniotic twin gestation in second trimester Velamentous insertion of umbilical cord in third trimester documented in this encounter Care Teams Agricultural Crop Farm Manager Relationship Specialty Start Date End Date Belén Rooney MD [address] [place] [phone] PCP - General Family Medicine 09/29/18 documented as of this encounter
--- OUTSIDE RECORDS SUMMARY | 2024-12-30 08:20 | XMS_ITS | Encounter Summary ---
Author Organization [employer] tem Address [id number] [address] [place] [address] Care Team Providers Care Clinical Abstractor Name Role Phone Belén Rooney MD Primary Care Provider [phone] Reason for Visit * Reason Onset Date Comments Med Refill 07/05/2021 Encounter Details Date Type Department Care Team (Late st Contact Info) Description 07/05/2021 Refill [facility] - Farshad Ramsay MD [address] [address] Farshad Ramsay MD [address] [place] [address] Trigeminal neuralgia (Primary Dx) Social History Tobacco [...] Info) Description 01/06/2025 8:45 AM EDT Appointment [facility] US Imaging [address] [place] [address] 01/10/2025 8:30 AM EDT Office Visit Maternal- Medicine at [facility] [address] [place] [address] Jefferson Nava MD [address] [facility], [address] [place] [address] 01/12/2025 9:00 AM EDT Appointment [facility] US Imaging [address] [place] [address] documented as of this encounter Visit Diagnoses Diagnosis Trigeminal neuralgia- Primary documented in this encounter Care Teams Clinical Abstractor Relationship Specialty Start Date End Date Belén Rooney MD [address] [place] [phone] PCP - General Family Medicine 09/29/18 documented as of this encounter
--- OUTSIDE RECORDS SUMMARY | 2024-12-30 08:20 | XMS_ITS | Encounter Summary ---
Author Organization [facility] Address [id number] [address] [place] [address] Care Team Providers Care Urban Renewal Manager Name Role Phone Belén Rooney MD Primary Care Provider Encounter Details Date Type Department Care Team (Late st Contact Info) Description 04/26/2021 Orders Only [facility] - Farshad Ramsay MD [address] [address] Farshad Ramsay MD [address] [place] [address] Trigeminal neuralgia Social History Tobacco Use Types [...] Info) Description 01/06/2025 8:45 AM EDT Appointment [facility] US Imaging [address] [place] [address] 01/10/2025 8:30 AM EDT Office Visit Maternal- Medicine at [facility] [address] [place] [address] Jefferson Naav MD [address], [address] [place] [address] 01/12/2025 9:00 AM EDT Appointment [facility] US Imaging [address] [place] [address] documented as of this encounter Procedures Procedure Name Priority Date/Time Associated Diagnosis Comments CBC WITH AUTO DIFFERENTIAL Routine 04/25/2021 Trigeminal neuralgia LIVER PANEL Routine 04/25/2021 Trigeminal neuralgia documented in this encounter Results * CBC auto differential (04/25/2021) 04/25/2021 us Farshad Ramsay MD LAB BLOOD ORDERABLES Final Result Performing Organization Address [facility] de Phone Number MANUALLY TRANSCRIBED RESULTS * Liver panel (04/25/2021) 04/25/2021 us Farshad Ramsay MD LAB BLOOD ORDERABLES Edited Result - Final Performing Organization Address [facility] Co de Phone Number MANUALLY TRANSCRIBED RESULTS documented in this encounter Visit Diagnoses Diagnosis Trigeminal neuralgia documented in this encounter Care Teams Urban Renewal Manager Relationship Specialty Start Date End Date Belén Rooney MD [address] [place] [phone] PCP - General Family Medicine 09/29/18 documented as of this encounter
--- OUTSIDE RECORDS SUMMARY | 2024-12-30 08:20 | XMS_ITS | Encounter Summary ---
Author Organization [facility] tem Address [id number] [address] [place] [address] Care Team Providers Care Waste Duster Name Role Phone Belén Rooney MD Primary Care Provider + [phone] Reason for Referral * Diagnostic Imaging (Routine) - Pending Review Specialty Diagnoses / Procedures Referred By Burt Referred To Contact Maternal and Medicine Diagnoses Intrauterine growth restriction affecting antepartum care of mother in second trimester, fetus 1 of multiple gestation Monochorionic diamniotic twin gestation in second trimester Velamentous insertion of umbilical cord in third trimester Procedures US MFM with or without consult Alex Subramanian MD [address] [address] Phone: tel: fax: Maternal- Medicine at [facility] [address] [place] [address] Phone: tel: fax: Referral ID Status Reason Start Date Expiration Date V isits Requested Visits Authorized [id number] Pending Review 12/29/2024 12/29/2025 1 1 * Diagnostic Imaging (Routine) - Pending Review Specialty Diagnoses / Procedures Referred By Contac t Referred To Contact Maternal and Medicine Diagnoses Intrauterine growth restriction affecting antepartum care of mother in second trimester, fetus 1 of multiple gestation Monochorionic diamniotic twin gestation in second trimester Velamentous insertion of umbilical cord in third trimester Procedures US MFM with or without consult Alex Subramanian MD [address], [address] [place] [address] Phone: tel: fax: Maternal- Medicine at [facility] [address] [facility] [place] [address] Phone: tel: fax: Referral ID Status Reason Start Date Expiration Date V isits Requested Visits Authorized [id number] Pending Review 12/29/2024 12/29/2025 1 1 Encounter Details Date Type Department Care Team (Late st Contact Info) Description 12/29/2024 Orders Only Maternal- Medicine at [facility] [address] [place] [address] Tressa Das RN Intrauterine growth [...] Recorded In the past 12 months has Bioxodes, gas, oil, or water [employer] threatened to shut off services in your [...] 01/06/2025 8:45 AM EDT Appointment [facility] US Imaging [address] [place] [address] 01/10/2025 8:30 AM EDT Office Visit Maternal- Medicine at [facility] [address] [place] [phone] Jefferson Nava MD [address], [address] [place] [address] 01/12/2025 9:00 AM EDT Appointment [facility] US Imaging [address] [facility] [place] [address] Scheduled Orders Name Type Priority Associated Diagnoses Orde r Schedule [facility] with or without consult Imaging Routine Intrauterine growth restriction affecting antepartum care of mother in second trimester, fetus 1 of multiple gestation Monochorionic diamniotic twin gestation in second trimester Velamentous insertion of umbilical cord in third trimester Expected: 12/29/2025 (Approximate), Expires: 12/29/2025 MFM with or without consult Imaging Routine [...] trimester documented in this encounter Care Teams Waste Duster Relationship Specialty Start Date End Date Belén Rooney MD [address] [place] [phone] PCP - General Family Medicine 09/29/18 documented as of this encounter
[2024-12-30 08:52] VITALS: BP 129/83; PULSE 86
== END 2024-12-30 09:19 | disposition home or self-care (01) ==
LOC: FBCO 08:09 → FBC 08:12
PROVIDERS: PCP Family Medicine; Visit Provider Obstetrics & Gynecology
DX: O30.039 Twin pregnancy, monochorionic/diamniotic, unspecified trimester (principal)
CPT/HCPCS: 59025

== ENCOUNTER 2025-01-04 11:03 | Outpatient (OUT) | payer OTHER, SELFPAY ==
--- OUTSIDE RECORDS SUMMARY | 2023-12-18 13:03 | XMS_ITS ---
Author Organization The [facility] in [place] Address [address] [place] [address] Care Team Providers Care Night Coordinator Name Role Phone Harsh Laguna Primary Care Provider REASON FOR VISIT Massage rx- Medications Medication SIG (Take, Route, Fr equency, Duration) Notes Start Date End Date Status Cyproheptadine HCl 4 MG Take 1 tablet by mouth once daily for 90 days Active Encounters Encounter Location Date Provider Diagnosis [facility] [address] [place] [address] 12/18/2023 Harsh Laguna Headache, unspecifie d R51.9 [...] Alia TURCIOS ADOB: [birth year] (28 yo F)Acc No.[id number]:12/18/2023 Patient: Christopher GONZALEZAlia ANGELA :1995 A ge:28 Y S ex:Female Address:[facility] [place] [address] * Refills Refill Cyproheptadine HCl Tablet, 4 MG, 90 Tablet, Take 1 tablet by mouth once daily, 90 days, Refills=3 * true * Date: Generated for Denis salcedo/Uzair/Maribell on: 0 01/04/2025 11:07 AM EDT
--- OUTSIDE RECORDS SUMMARY | 2023-12-18 13:18 | XMS_ITS ---
Author Organization The [facility] in [place] Address [address] [place] [address] Care Team Providers Care Tray Delivery Aide Name Role Phone Harsh Laguna Primary Care Provider REASON FOR VISIT RE:Doctor Encounters Encounter Location Date Provider Diagnosis [facility] [address] [place] [address] 12/18/2023 Harsh Laguna Plan Of Treatment No Information Progress Notes * Alia TURCIOS ADOB: [birth year] (28 yo F)Acc No.[id number]:12/18/2023 Patient: Christopher REYES Alia Avani :1995 A ge:28 Y S ex:Female Address:[facility] [address], [place] [address] * true * Date: Generated for Printi ng/Faxing/eTransmitting on: 0 01/04/2025 11:05 AM EDT
--- OUTSIDE RECORDS SUMMARY | 2024-04-09 07:00 | XMS_ITS ---
Author Organization [facility] in [place] Address [address] [place] [address] Care Team Providers Care Mask Inspector Name Role Phone Harsh Laguna Primary Care Provider Allergies No Known Allergies REASON FOR VISIT Presents to office with mom for c/o headaches for the past 2 months since stopping BCP, Also says she stopped the Cyproheptadine and Gabapentin Medications Medication SIG (Take, Route, Frequency, Duration) Notes Start Date End Date Status Flonase Allergy Relief 50 MCG/ACT 1 spray in each nostril Nasally Once a day for 60 Active Imitrex 100 MG 1 tablet at least 2 hours between doses as needed Orally Twice a day 04/09/2024 Active Vitamin D 50 MCG (1999 [place]) 1 capsule Ora lly Once a day Active Magnesium 200 MG 2 tablets with a jonah l Orally Once a day Active Social History Tobacco Use: Social History Observation Description Date Details (start date - stop date) Never Smoker NA - NA Tobacco Use/Smoking Question Answer Notes Patient is a nonsmoker AUDIT-C (Standard) Question Answer Notes Did you have a drink containing alcohol in the p ast year? 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 [address] [facility] [place] [address] 04/09/2024 Harsh Laguna Migraine G43.909 Assessments Encounter Date Diagnosis (ICD Code) Assessment Notes Treatment Notes Treatment Clinical Notes Section Notes 04/09/2024 Migraine (ICD-10 - G43.909) Plan Of Treatment Medication Medication Name Sig Start Date Stop Date Notes Imitrex 100 MG 1 tablet at least 2 hours between doses as needed Orally Twice a day 04/09/2024 Pending Test Test Name Order Date MRI BRAIN WO CON 04/09/2024 Progress Notes * SAQIBREBEKAAlia ADOB: [birth year] (28 yo F)Acc No.[id number]:04/09/2024 Progress Note Patient: Alia BETANCOURT Provider: Sandra Laguna ([facility])MD :1995 A ge:28 Y S ex:Female Date:04/09/2024 Address:[facility] [address], [facility] Check In:10:54 AM ESTCheck O ut:11:45 AM EST Subjective: * Chief Complaints: * P resents to office with mom for c/o headaches for the past 2 months since stopping BCPAlso says she stopped the Cyproheptadine and Gabapentin * HPI: D epression Screening: PHQ-2 (2015 Edition) L ittle interest or pleasure in doing things??Not at all F eeling down, depressed, or hopeless? N ot at all T otal Score 0 was on gabapentin for trigeminal neuralgia - not had headaches in the pats\ now does more in neck[place] nd into ep[place] area constant pressure Chnage in headche - didn't try imitrex - yanelis try merced - and if not colin - try nurtec. * ROS: E ENT: hearing changes d enies. v isual changes d enies.?non-healing mouth sores d enies. s wollen glands or neck lumps d enies. h oarseness d enies. s ore throat d enies. d ifficulty swallowing d enies. n ose bleeds d enies. n shon congestion d enies. e ar ache d enies. e ar discharge?denies. r inging in ears d enies. l ight sensitivity d enies. e ye pain d enies. b lurring d enies. e ye irritation d enies. d ouble vision d enies.?vision loss d enies. G eneral/Constitutional: Sweats: D enies. F atigue d enies. S leep problems d enies. A norexia d enies. M alaise d enies. W eight loss d enies.?Fatigue or Weakness d enies. F ever or Chills d enies. C ardiovascular: Shortness of Breath w/lying flat d enies. L ightheadedness/dizziness d enies. C hest tightness/ heavy pressure d enies. S welling of legs, ankles, or feet d enies. W aking up with shortness of breath d enies. C hest pain denies. P alpitations d enies. W eight gain d enies. R espiratory: Chronic or frequent cough d enies. C oughing up blood?denies. D ifficulty breathing d enies. P roductive cough d enies. S noring?denies. S hortness of breath that awakens from sleep (PND) d enies. C hest pain d enies. S putum production d enies. W heezing d enies. M usculoskeletal: Joint pain d enies. J oint Fluid d enies. B ack pain d enies. K nee pain d enies. N alfredo pain d enies. J oint Stiffness d enies. M uscle cramps d enies. W eakness of muscles d enies. A rthritis d enies. M uscle aches d enies. P ain in shoulder(s) d enies. S wollen joints d enies. * Active Problem List F41.9 Anxiety Modified On:05/27/2023W/U Status:confirmed J30.2 Seasonal allergies Modified On:04/15/2019W/U Status:confirmed R51 Left-sided face pain Modified On:07/13/2019W/U Status:confirmed G50.0 Trigeminal neuralgia of left side of face Modified On:08/31/2019W/U Status:confirmed E16.2 Hypoglycemia Modified On:08/24/2020W/U Status:confirmed G89.29 Other chronic pain Modified On:12/04/2022W/U Status:confirmed R00.2 Palpitation Modified On:03/19/2023W/U Status:confirmed G43.909 Migraine Modified On:04/09/2024W/U Status:confirmed * Medical History: * Surgical History: w isdom teeth Appendectomy 08/08/2018 * Hospitalization/Major Diagno stic Procedure: S ee above * Family History: F ather: , AVM- passed in 40's, diagnosed with Unspecified essential hypertension.?Mother: alive, Trigeminal Neuralgia. V-tach with cardiac ablation, diagnosed with Unspecified essential hypertension. P aternal Grandfather: , diagnosed with Unspecified heart disease.?Paternal Grandmother: , diagnosed with Other malignant neoplasm of unspecified site, Unspecified heart disease. M aternal Grandmother: diagnosed with Other malignant neoplasm of unspecified site. 2 brother(s) - healthy. . Paternal Grandmother - Lung Cance. * Social History: T obacco Use: T obacco Use/Smoking P atient is a n onsmoker D rug/Alcohol: A BEL-C (Standard) D id you have a drink containing alcohol in the past year? 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 * Medications: T akingFlonase Allergy Relief(Fluticasone Propionate) 50 MCG/ACT Suspension 1 spray in each nostril Nasally Once a day Magnesium 200 MG Tablet 2 tablets with a meal Orally Once a day Vitamin D 50 MCG (2000 UT) Capsule 1 capsule Orally Once a day Taking Flonase Allergy Relief(Fluticasone Propionate) 50 MCG/ACT Suspension 1 spray in each nostril Nasally Once a day Taking Magnesium 200 MG Tablet 2 tablets with a meal Orally Once a day Taking Vitamin D 50 MCG (2000 UT) Capsule 1 capsule Orally Once a day DiscontinuedCyproheptadine HCl 4 MG Tablet Take 1 tablet by mouth once daily Doxepin HCl 10 MG Capsule 1-2 capsule Orally every 6 hrs Gabapentin 100 MG Capsule 1 capsule Orally Once a day Loestrin 06/14 (21) Ondansetron 4 MG Tablet Disintegrating 1 tablet on the tongue and allow to dissolve Orally Q 6 hours PRN Medication List reviewed and reconciled with the patientDiscontinued Cyproheptadine HCl 4 MG Tablet Take 1 tablet by mouth once daily Discontinued Doxepin HCl 10 MG Capsule 1-2 capsule Orally every 6 hrs Discontinued Gabapentin 100 MG Capsule 1 capsule Orally Once a day Discontinued Loestrin 06/14 (21) Discontinued Ondansetron 4 MG Tablet Disintegrating 1 tablet on the tongue and allow to dissolve Orally Q 6 hours PRN Medication List reviewed and reconciled with the patient * Allergies: N .K.D.A.no[Allergies Verified] Objective: * Vitals: W t:143.8lbs, Ht: 62.5 in, BP:126/78mm Hg, BMI:25.88Index, Ht-cm: 158.75 cm, Wt- k.23 kg. * Examination: P hysical Exam: GENERAL: w ell developed, well nourished, in no acute distress. HEAD: n ormocephalic/atraumatic. EYES: p upils equal, round and reactive to light, conjunctivae and sclerae normal. EARS: n o deformity or lesion of external ear, canals and TM appear normal bilaterally, TM's intact, not inflamed with normal light reflex, hearing grossly normal to conversational speech. NOSE: n o deformity, discharge, inflammation, or lesions.? MOUTH: m ucous membranes moist, normal oropharynx and posterior pharynx without lesions or exudates, tongue normal, dentition normal. NECK: n alfredo supple, no masses or palpable cervical nodes, trachea midline, thyroid without nodules, masses, tenderness, or enlargement. CHEST: n o chest wall deformity, no chest wall tenderness.? LUNGS: n ormal respiratory effort and clear to auscultation, no wheezes, rales, or rhonchi, good air exchange. CARDIO: r egular rate and rhythm, normal S1 and S2, nor murmur, rub, or gallop. PULSES: n ormal capillary refill. ABDOMEN: s oft, non-distended, non-tender, no masses. MUSCULOSKELETAL: n o deformity or scoliosis noted, normal range of motion, joints normal, no erythema, edema, effusion, or ecchymosis. EXTREMITY: n o clubbing, cyanosis, edema, or deformity with normal ROM in both upper and lower bilateral extremities. NEUROLOGIC: g rossly normal. SKIN: n o rashes, ulcerations, or suspicious lesions. LYMPH NODES: n o cervical adenopathy, nodes normal. MENTAL STATUS: a lert and oriented x3, normal mood and affect. Assessment: * Assessment: 1. M igraine - G43.909 (Primary) Plan: * Treatment: * Procedure Codes: * Preventive Medicine: Screenings/Counseling: B IA ACTION PLAN Above Normal BMI Follow-up D ietary management education, guidance, and counseling See treatment section of progress note for complete details of management plan. * * Sign off status: Completed Visit Status: C HK (Check Out) true * Provider: Sandra Laguna ([facility])MD Date: 1 06/09/2023 Generated for Printi denisse/Uzair/eTransmitting on: 0 01/04/2025 11:05 AM EDT History and Physical Notes * HPI (History of Present Illness) Category Sub-Category Detail Notes Category Not es Depression Screening PHQ-2 (2015 Edition) Little interest or pleasure in doing things?: Not at all was on gabapentin for trigeminal neuralgia - not had headaches in the pats\ now does more in neck[place] nd into episcopal area constant pressure Chnage in headche - didn't try imitrex - yanelis try merced - and if not colin - try nurtec Feeling down, depressed, or hopeless?: N ot at all Total Score: 0 Examination Category Sub-Category Detail Notes Category Not es Physical Exam GENERAL: well developed, well nourished, in no acute distress HEAD: normocephalic/atraum atic EYES: pupils equal, round and reactive to light, conjunctivae and sclerae normal EARS: no deformity or lesi on of external ear, canals and TM appear normal bilaterally, TM's intact, not inflamed with normal light reflex, hearing grossly normal to conversational speech NOSE: no deformity, discha rge, inflammation, or lesions MOUTH: mucous membranes [address], normal oropharynx and posterior pharynx without lesions or exudates, tongue normal, dentition normal NECK: neck supple, no mass es or palpable cervical nodes, trachea midline, thyroid without nodules, masses, tenderness, or enlargement CHEST: no chest wall deform ity, no chest wall tenderness LUNGS: normal respiratory e ffort and clear to auscultation, no wheezes, rales, or rhonchi, good air exchange CARDIO: regular rate and rhy thm, normal S1 and S2, nor murmur, rub, or gallop PULSES: normal capillary ref ill ABDOMEN: soft, non-distended, non-tender, no masses RECTAL: MUSCULOSKELETAL: no deformity or scol iosis noted, normal range of motion, joints normal, no erythema, edema, effusion, or ecchymosis EXTREMITY: no clubbing, cyanosi s, edema, or deformity with normal ROM in both upper and lower bilateral extremities NEUROLOGIC: grossly normal SKIN: no rashes, ulceratio ns, or suspicious lesions LYMPH NODES: no cervical adenopat hy, nodes normal MENTAL STATUS: alert and oriented x 3, normal mood and affect
--- OUTSIDE RECORDS SUMMARY | 2024-09-10 07:15 | XMS_ITS ---
Author Organization [facility]ices Address [address] [place] [phone] Care Team Providers Care Regulatory Compliance Engineer Name Role Phone Heaven Vera Unavailable [phone] Yuliet Lozano Unavailable [phone] REASON FOR VISIT Recall (A) (28) Social History Sex Assigned At : Social History Observation Description Sex Assigned At Female Encounters Encounter Location Date Provider Diagnosis [facility] [address] [place] [phone] 09/10/2024 Yuliet Lozano Plan Of Treatment Next Appt Details Provider Name:Deshawn Moon , 06/10/2025 09:45:00 AM, [address] [place], [place], [phone], Progress Notes * Alia BUNCHDOB: 6 (29 yo F)Acc No.[id number]:09/10/2024 Patient: Alia BETANCOURT Provider: Kimberlee Lozano DMD :1995 A ge:29 Y S ex:Female Date:09/10/2024 Address[address], [id number] Subjective: * Chief Complaints: * 1 . Recall (A) (28). * Medical History: Objective: * Vitals: Assessment: Plan: * Treatment: * Billing Information: * Visit Code: * Procedure Codes: * Electronic signature of Audra Lozano DMD on 01/04/2025 at 11:06 AM EDT Sign off status: Pending * Provider: Kimberlee Lozano DMD Date: 0 09/10/2024 Generated for Denis salcedo/Uzair/Maribell on: 0 01/04/2025 11:06 AM EDT
--- OUTSIDE RECORDS SUMMARY | 2024-12-20 14:54 | XMS_ITS | Encounter Summary ---
Author Organization [facility] tem Address [id number] [address] [place] [address] Care Team Providers Care Iron Piler Name Role Phone Belén Rooney MD Primary Care Provider + [phone] Reason for Referral * Diagnostic Imaging (Routine) [...] without consult Blaise Woodall MD [address] [facility] 1st [place] [address] Phone: tel: fax: Maternal- Medicine at [facility] [address] [place] [address] Phone: tel: fax: Referral ID Status Reason Start Date Expiration Date V isits Requested Visits Authorized [id number] Pending Review 12/08/2024 12/08/2025 1 1 Reason [...] twin gestation in second trimester Procedures US [facility] with or without consult Blaise Woodall MD [address] [facility] 1st [place] [address] Phone: tel: fax: Maternal- Medicine at [facility] [address] [place] [address] Phone: tel: fax: Referral ID Status Reason Start Date Expiration Date V isits Requested Visits Authorized [id number] Pending Review 12/08/2024 12/08/2025 1 1 Encounter Details Date Type Department Care Team (Latest Contact Info) Description 12/20/2024 2:54 PM EDT - 12/20/2024 11:59 PM EDT Hospital Encounter [facility] - [facility] US Imaging [address] [place] [address] Intrauterine growth restriction affecting antepartum [...] = 0.6 oz pur e alcohol) [facility] Utilities Answer Date Recorded In the past 12 months has [employer], gas, oil, or water [employer] threatened to shut off services in your [...] Care Team (Late st Contact Info) Description 01/06/2025 8:45 AM EDT Appointment [facility] US Imaging [address] [place] [address] 01/10/2025 8:30 AM EDT Office Visit Maternal- Medicine at [facility] [address] [place] [address] Jefferson Nava MD [address] [facility] HERNANDEZBANNER [facility] CENTERSandra, [address] [place] [address] 01/12/2025 9:00 AM EDT Appointment [facility] US Imaging [address] [place] [address] 01/14/2025 10:30 AM EDT [facility] [address] [facility] [address] [place] [address] Morenita Euceda MD [address] [place] [address] 01/21/2025 8:00 AM EDT Appointment [facility] US Imaging [address] [place] [address] documented as of this encounter Procedures Procedure [...] 3:58 PM EDT) Anatomical Region Laterality Modality OB-CLOTH PIECER Ultrasound 12/20/2024 3:17 PM EDT Narrative 12/20/2024 4:11 PM EDT NAME: ALIVIA HARTMAN : 1995 SEX: F Accession Number: [id number] ORDERING PHYSICIAN: BLAISE WOODALL REFERRING PHYSICIAN: VIC MCKEON Coding ----- --------- Procedures 00989: Limited OB / NATHAN, 1 or More Fetuses 54851: Doppler velocimetry, ; umbilical artery. 2 69846: Doppler velocimetry, ; middle cerebral artery. 2 61645: Doppler Ductus Venosus. 2 Indication ----- --------- [place] twin , IUGR-Poor growth-twin A & B, Pre term contractions, Supervision of high risk History ----- --------- OB History 1. Para 0 [id number] Maternal Assessment ----- --------- Physical Exam Height [...] HARTMAN : 1995 SEX: F Accession Number: [id number] ORDERING PHYSICIAN: BLAISE WOODALL REFERRING PHYSICIAN: VIC MCKEON Coding ----- --------- Procedures 66460: Limited OB / NATHAN, 1 or More Fetuses 61271: Doppler velocimetry, ; umbilical artery. 2 02046: Doppler velocimetry, ; middle cerebral artery. 2 66733: Doppler Ductus Venosus. 2 Indication ----- --------- [place] twin , IUGR-Poor growth-twin A & B, Pre termcontractions, Supervision of high risk History ----- --------- OB History 1. Para 0 [id number] Maternal Assessment ----- --------- Physical Exam Height [...] byprimary OB provider unless otherwise specified by [facility]. Results forwarded to ordering provider so they can follow up with thepatient as necessary. Blaise Woodall MD [facility] US ORDERABLES Final Result documented in this encounter Visit Diagnoses Diagnosis Intrauterine growth restriction affecting antepartum care of mother in second trimester, fetus 1 of multiple gestation Intrauterine growth restriction affecting antepartum care of mother in second trimester, fetus 2 of multiple gestation Monochorionic diamniotic twin gestation in second trimester documented in this encounter Care Teams Iron Piler Relationship Specialty Start Date End Date Belén Rooney MD [address] [place] [address] PCP - General Family Medicine 09/29/18 documented as of this encounter
--- OUTSIDE RECORDS SUMMARY | 2024-12-23 04:45 | XMS_ITS ---
Author Organization [facility] vices Address [address] [place] [phone] Care Team Providers Care General Service Officer Name Role Phone Heaven Vera Unavailable [phone] Deshawn Moon Unavailable [phone] REASON FOR VISIT Recall (A) 29 Social History Sex Assigned At : Social History Observation Description Sex Assigned At Female Encounters Encounter Location Date Provider Diagnosis Dental Main [address] [place] [phone] 12/23/2024 Deshawn Moon Plan Of Treatment Next Appt Details Provider Name:Deshawn Moon , 06/10/2025 09:45:00 AM, [address] [place], [place], [phone], Progress Notes * Alia BUNCHDOB: 6 (29 yo F)Acc No.[id number]:12/23/2024 Patient: Alia BETANCOURT Provider: Christopher Moon DDS :1995 A ge:29 Y S ex:Female Date:12/23/2024 Address:[address] [place], [id number] Subjective: * Chief Complaints: * 1 . Recall (A) 29. * Medical History: Objective: * Vitals: Assessment: Plan: * Treatment: * Billing Information: * Visit Code: * Procedure Codes: * Electronic signature of Nessa Moon DDS on 01/04/2025 at 11:05 AM EDT Sign off status: Pending * Provider: Christopher Moon DDS Date: 0 12/23/2024 Generated for Denis salcedo/Uzair/Maribell on: 0 01/04/2025 11:05 AM EDT
--- OUTSIDE RECORDS SUMMARY | 2024-12-29 10:47 | XMS_ITS | Encounter Summary ---
Author Organization [employer] [facility] tem Address [id number] [address] [place] [address] Care Team Providers Care Can Cleaner Name Role Phone Belén Rooney MD Primary Care Provider + [phone] Reason for Referral * Diagnostic Imaging (Routine) [...] Blaise Woodall MD [address] [facility] 1st [place] [address] Phone: tel: fax: Maternal- Medicine at [facility] [address] [place] [address] Phone: tel: fax: Referral ID Status Reason Start Date Expiration Date V isits Requested Visits Authorized [id number] Pending Review 12/08/2024 12/08/2025 1 1 Reason [...] twin gestation in second trimester Procedures US [facility] with or without consult Blaise Woodall MD [address] [facility] 1st [place] [address] Phone: tel: fax: Maternal- Medicine at [facility] [address] [place] [address] Phone: tel: fax: Referral ID Status Reason Start Date Expiration Date V isits Requested Visits Authorized [id number] Pending Review 12/08/2024 12/08/2025 1 1 Encounter Details Date Type Department Care Team (Latest Contact Info) Description 12/29/2024 10:47 AM EDT - 12/29/2024 11:59 PM EDT Hospital Encounter [facility] - [facility] US Imaging [address] [place] [address] Intrauterine growth restriction affecting antepartum [...] 0.6 oz pur e alcohol) [facility] Utilities Answer Date Recorded In the past 12 months has [employer], gas, oil, or water [employer] threatened to shut off services in your [...] Info) Description 01/06/2025 8:45 AM EDT Appointment [facility] - [facility] US Imaging [address] [place] [phone] 01/10/2025 8:30 AM EDT Office Visit Maternal- Medicine at [facility] [address] [place] [phone] Jefferson Nava MD [address] [facility], [address] [place] [address] 01/12/2025 9:00 AM EDT Appointment [facility] - [facility] US Imaging [address] [place] [phone] 01/14/2025 10:30 AM EDT Office Visit [facility] Physicians Obstetrics/Gynecology [address] [facility] [address] [place] [address] Morenita Euceda MD [address] [facility] [place] [phone] 01/21/2025 8:00 AM EDT Appointment [facility] - [facility] US Imaging [address] [place] [phone] documented as of this encounter Procedures Procedure Name Priority Date/Time Associated Diagnosis Comments US MF OB FOLLOW-UP, 1 FETUS Routine 12/29/2024 12:59 PM EDT Intrauterine growth restriction affecting antepartum care of mother in second trimester, fetus 1 of multiple gestation Intrauterine growth restriction affecting antepartum care of mother in second trimester, fetus 2 of multiple gestation Monochorionic diamniotic twin gestation in second trimester documented in this encounter Results * US MF OB FOLLOW-UP, 1 FETUS (12/29/2024 12:59 PM EDT) Anatomical Region Laterality Modality [facility] Ultrasound 12/29/2024 11:3 5 AM EDT Narrative 12/30/2024 5:18 PM EDT NAME: ALIVIA HARTMAN : 1995 SEX: F Accession Number: [id number] ORDERING PHYSICIAN: BLAISE WOODALL REFERRING PHYSICIAN: VIC MCKEON Coding ----- --------- Procedures 30876: Follow-up Ultrasound, per fetus. 2 96942: Doppler velocimetry, ; umbilical artery. 2 09942: Doppler velocimetry, ; middle cerebral artery. 2 43943: Doppler Ductus Venosus. 2 Indication ----- --------- Polk-Di twin , IUGR-Poor growth ( Twin A) History ----- --------- OB History 1. Para 0 [id number] Maternal Assessment ----- --------- Physical Exam Height 157 cm, 5 ft 2 in. Initial weight 64 kg, 141 lb. Initial BMI 25.79 kg/m Method ----- --------- Transabdominal ultrasound examination ----- --------- Twin . Number of fetuses: 2. Monochorionic-diamniotic Dating ----- --------- LMP on: 06/08/2024 GA by LMP 29 w + 1 d VICTOR M by LMP: 03/15/2025 Ultrasound examination on: 12/29/2024 GA by U/S based upon: AC, BPD, Femur, HC GA by U/S 27 w + 5 d VICTOR M by U/S: 03/25/2025 GA by U/S based upon (Fetus 2): AC, BPD, Femur, HC GA by U/S (Fetus 2) 28 w + 1 d VICTOR M by U/S (Fetus 2): 03/22/2025 Assigned: based on the LMP, selected on 09/27/2024 Assigned GA 29 w + 1 d Assigned VICTOR M: 03/15/2025 Fetus A: General Evaluation ----- --------- Cardiac activity Present. FHR 145 bpm. Presentation: Lower right, cephalic Placenta: Placental site: posterior, previously documented away from cervical os Umbilical cord: Cord vessels: 3 vessel cord. Insertion site: documented previously Amniotic fluid: Amount of AF: normal amount. MVP 3.6 cm Fetus B: General Evaluation ----- --------- Cardiac activity Present. FHR 138 bpm. Presentation: Upper left, breech Placenta: Placental site: posterior, previously documented away from cervical os Umbilical cord: Cord vessels: 3 vessel cord. Insertion site: documented previously Amniotic fluid: Amount of AF: normal amount. MVP 5.7 cm Fetus A: Biometry ----- --------- Standard BPD 72.4 mm 29w 0d 35% Hadlock OFD 91.6 mm 29w 4d 61% Tamica HC 261.6 mm 28w 3d 6% Hadlock AC 213.8 mm 25w 6d <1% Hadlock Femur 51.0 mm 27w 2d 3% Hadlock Humerus 46.1 mm 27w 1d 5% Tamica HC / AC 1.22 EFW 987 g 1% Hadlock EFW discordance 16.1 % EFW (lb) 2 lb EFW (oz) 3 oz EFW by: Hadlock ([id number]) Extended Tibia 44.9 mm 27w 4d 8% Tamica Jukebox Checker 2.8 mm Head / Face / Neck Cephalic index 0.79 50% Nicolaides Extremities / Bony Struc FL / BPD 0.70 FL / HC 0.19 FL / AC 0.24 Other Structures FHR 145 bpm Fetus B: Biometry ----- --------- Standard BPD 71.0 mm 28w 4d 19% Hadlock OFD 90.0 mm 29w 0d 46% Tamica HC 258.0 mm 28w 0d 3% Hadlock Cerebellum tr 32.8 mm 27w 6d 21% Hill AC 242.7 mm 28w 4d 26% Hadlock Femur 51.3 mm 27w 3d 4% Hadlock Humerus 46.9 mm 27w 5d 9% Tamica HC / AC 1.06 EFW 1,177 g 11% Hadlock EFW discordance 16.1 % EFW (lb) 2 lb EFW (oz) 10 oz EFW by: Hadlock ([id number]) Extended Tibia 45.9 mm 28w 0d 16% Tamica Jukebox Checker 3.9 mm CM 4.6 mm 3% Nicolaides Head / Face / Neck Cephalic index 0.79 49% Nicolaides Extremities / Bony Struc FL / BPD 0.72 FL / HC 0.20 FL / AC 0.21 Other Structures FHR 138 bpm Fetus A: Anatomy ----- --------- The following structures appear normal: Head/Neck: Cranium. Lateral ventricles. Cavum septi pellucidi. Heart/Thorax: 4-chamber view. Cardiac position. Cardiac axis. Cardiac size. Cardiac rhythm. Diaphragm. Abdomen: Stomach. Kidneys. Bladder. Fetus B: Anatomy ----- --------- The following structures appear normal: Head / Neck Cranium. Lateral ventricles. Cavum septi pellucidi. Cerebellum. Cisterna magna. Heart / Thorax 4-chamber view. Cardiac position. Cardiac axis. Cardiac size. Cardiac rhythm. Diaphragm. Abdomen Stomach. Kidneys. Bladder. Fetus A: Doppler ----- --------- Umbilical Artery: normal PI 1.12 81% Ebbing PS -41.09 cm/s TAmax -26.07 cm/s MD -11.91 cm/s S / D 3.42 74% Kiran Mid Cerebral Artery: normal PI 2.05 38% Ebbing RI 0.88 87% Bahlmann PS 41.75 cm/s PS 1.07 MoM ED 5.13 cm/s TAmax 18.19 cm/s 65% Ebbing CPR PI 1.83 17% Ebbing Fetus B: Doppler ----- --------- Umbilical Artery: normal PI 1.10 77% Ebbing PS 55.80 cm/s 92% Ebbing TAmax 34.82 cm/s 83% Ebbing MD 16.59 cm/s S / D 3.34 71% Kiran Mid Cerebral Artery: normal PI 1.68 8% Ebbing RI 0.83 67% Bahlmann PS 45.10 cm/s PS 1.16 MoM ED 7.56 cm/s TAmax 21.25 cm/s 88% Ebbing CPR PI 1.53 5% Ebbing Maternal Structures ----- --------- Uterus Visualized Cervix Suboptimal Approach - Transabdominal Right Ovary Not visualized Left Ovary Not visualized Cul de Sac Suboptimal Impression ----- --------- Monochorionic-diamniotic twin at 29w 1d with an VICTOR M of 03/15/2025. Twin A is Lower right, cephalic. EFW measures 681g at the 1%, AC measures at the <1% . Consistent with severe growth restriction. Amniotic fluid MVP measures 3.6 cm. bladder and stomach are visualized. Umbilical artery Doppler S/D ratio in normal range. MCA PSV of 1.07 MoM is in the unremarkable range for the evaluation of anemia. Ductus venosus demonstrates continuous forward flow. Twin B is Upper left, breech. EFW measures 730g at the 11%, AC measures at the 26%. No longer meets criteria for growth restriction. Amniotic fluid MVP measures 5.7 cm. bladder and stomach are visualized. Umbilical artery S/D ratio in normal range. MCA PSV of 1.16 MoM is in the unremarkable range for the evaluation of anemia. Ductus venosus demonstrates continuous forward flow. Twin growth discordance is 16.1%. Known velamentous vs marginal cord insertion of twin A is, not evaluated on today's exam. Recommendations ----- --------- Please see follow up MFM documentation from today's encounter. Subsequent follow up or other follow up as clinically determined by primary OB provider unless otherwise specified by MFM. Results forwarded to ordering provider so they can follow up with the patient as necessary. Procedure Note Alex Subramanian MD - 12/30/2024 NAME: ALIVIA HARTMAN : 1995 SEX: F Accession Number: [id number] ORDERING PHYSICIAN: BLAISE WOODALL REFERRING PHYSICIAN: VIC MCKEON Coding ----- --------- Procedures [id number]: Follow-up Ultrasound, per fetus. 2 76014: Doppler velocimetry, ; umbilical artery. 2 75427: Doppler velocimetry, ; middle cerebral artery. 2 91153: Doppler Ductus Venosus. 2 Indication ----- --------- Polk-Di twin , IUGR-Poor growth ( Twin A) History ----- --------- OB History 1. Para 0 [id number] Maternal Assessment ----- --------- Physical Exam Height 157 cm, 5 ft 2 in. Initial weight 64 kg, 141 lb.Initial BMI 25.79 kg/m Method ----- --------- Transabdominal ultrasound examination ----- --------- Twin . Number of fetuses: 2. Monochorionic-diamniotic Dating ----- --------- LMP on: 06/08/2024 GA by LMP 29 w + 1 d VICTOR M by LMP: 03/15/2025 Ultrasound examination on: 12/29/2024 GA by U/S based upon: AC, BPD, Femur, HC GA by U/S 27 w + 5 d VICTOR M by U/S: 03/25/2025 GA by U/S based upon (Fetus 2): AC, BPD, Femur, HC GA by U/S (Fetus 2) 28 w + 1 d VICTOR M by U/S (Fetus 2): 03/22/2025 Assigned: based on the LMP, selected on 09/27/2024 Assigned GA 29 w + 1 d Assigned VICTOR M: 03/15/2025 Fetus A: General Evaluation ----- --------- Cardiac activity Present. FHR 145 bpm. Presentation: Lower right,cephalic Placenta: Placental site: posterior, previously documented away fromcervical os Umbilical cord: Cord vessels: 3 vessel cord. Insertion site: documentedpreviously Amniotic fluid: Amount of AF: normal amount. MVP 3.6 cm Fetus B: General Evaluation ----- --------- Cardiac activity Present. FHR 138 bpm. Presentation: Upper left, breech Placenta: Placental site: posterior, previously documented away fromcervical os Umbilical cord: Cord vessels: 3 vessel cord. Insertion site: documentedpreviously Amniotic fluid: Amount of AF: normal amount. MVP 5.7 cm Fetus A: Biometry ----- --------- Standard BPD 72.4 mm 29w 0d 35% Hadlock OFD 91.6 mm 29w 4d 61% Tamica HC 261.6 mm 28w 3d 6% Hadlock AC 213.8 mm 25w 6d <1% Hadlock Femur 51.0 mm 27w 2d 3% Hadlock Humerus 46.1 mm 27w 1d 5% Tamica HC / AC 1.22 EFW 987 g 1% Hadlock EFW discordance 16.1 % EFW (lb) 2 lb EFW (oz) 3 oz EFW by: Hadlock ([id number]) Extended Tibia 44.9 mm 27w 4d 8% Tamica Jukebox Checker 2.8 mm Head / Face / Neck Cephalic index 0.79 50% Nicolaides Extremities / Bony Struc FL / BPD 0.70 FL / HC 0.19 FL / AC 0.24 Other Structures FHR 145 bpm Fetus B: Biometry ----- --------- Standard BPD 71.0 mm 28w 4d 19% Hadlock OFD 90.0 mm 29w 0d 46% Tamica HC 258.0 mm 28w 0d 3% Hadlock Cerebellum tr 32.8 mm 27w 6d 21% Hill AC 242.7 mm 28w 4d 26% Hadlock Femur 51.3 mm 27w 3d 4% Hadlock Humerus 46.9 mm 27w 5d 9% Tamica HC / AC 1.06 EFW 1,177 g 11% Hadlock EFW discordance 16.1 % EFW (lb) 2 lb EFW (oz) 10 oz EFW by: Hadlock ([id number]) Extended Tibia 45.9 mm 28w 0d 16% Tamica Jukebox Checker 3.9 mm CM 4.6 mm 3% Nicolaides Head / Face / Neck Cephalic index 0.79 49% Nicolaides Extremities / Bony Struc FL / BPD 0.72 FL / HC 0.20 FL / AC 0.21 Other Structures FHR 138 bpm Fetus A: Anatomy ----- --------- The following structures appear normal: Head/Neck: Cranium. Lateral ventricles. Cavum septi pellucidi. Heart/Thorax: 4-chamber view. Cardiac position. Cardiac axis. Cardiacsize. Cardiac rhythm. Diaphragm. Abdomen: Stomach. Kidneys. Bladder. Fetus B: Anatomy ----- --------- The following structures appear normal: Head / Neck Cranium. Lateral ventricles. Cavum septi pellucidi.Cerebellum. Cisterna magna. Heart / Thorax 4-chamber view. Cardiac position. Cardiac axis. Cardiacsize. Cardiac rhythm. Diaphragm. Abdomen Stomach. Kidneys. Bladder. Fetus A: Doppler ----- --------- Umbilical Artery: normal PI 1.12 81% Ebbing PS -41.09 cm/s TAmax -26.07 cm/s MD -11.91 cm/s S / D 3.42 74% Kiran Mid Cerebral Artery: normal PI 2.05 38% Ebbing RI 0.88 87% [facility] PS 41.75 cm/s PS 1.07 MoM ED 5.13 cm/s TAmax 18.19 cm/s 65% Ebbing CPR PI 1.83 17% Ebbing Fetus B: Doppler ----- --------- Umbilical Artery: normal PI 1.10 77% Ebbing PS 55.80 cm/s 92% Ebbing TAmax 34.82 cm/s 83% Ebbing MD 16.59 cm/s S / D 3.34 71% Kiran Mid Cerebral Artery: normal PI 1.68 8% Ebbing RI 0.83 67% [facility] PS 45.10 cm/s PS 1.16 MoM ED 7.56 cm/s TAmax 21.25 cm/s 88% Ebbing CPR PI 1.53 5% Ebbing Maternal Structures ----- --------- Uterus Visualized Cervix Suboptimal Approach - Transabdominal Right Ovary Not visualized Left Ovary Not visualized Cul de Sac Suboptimal Impression ----- --------- Monochorionic-diamniotic twin at 29w 1d with an VICTOR M of03/15/2025. Twin A is Lower right, cephalic. EFW measures 681g at the 1%, AC measures at the <1% . Consistent withsevere growth restriction. Amniotic fluid MVP measures 3.6 cm. bladder and stomach are visualized. Umbilical artery Doppler S/D ratio in normal range. MCA PSV of 1.07 MoM is in the unremarkable range for the evaluation offetal anemia. Ductus venosus demonstrates continuous forward flow. Twin B is Upper left, breech. EFW measures 730g at the 11%, AC measures at the 26%. No longer meetscriteria for growth restriction. Amniotic fluid MVP measures 5.7 cm. bladder and stomach are visualized. Umbilical artery S/D ratio in normal range. MCA PSV of 1.16 MoM is in the unremarkable range for the evaluation offetal anemia. Ductus venosus demonstrates continuous forward flow. Twin growth discordance is 16.1%. Known velamentous vs marginal cord insertion of twin A is, not evaluatedon today's exam. Recommendations ----- --------- Please see follow up MFM documentation from today's encounter. Subsequent follow up or other follow up as clinically determined byprimary OB provider unless otherwise specified by MFM. Results forwarded to ordering provider so they can follow up with thepatient as necessary. Blaise Woodall MD [facility] US ORDERABLES Final Result documented in this encounter Visit Diagnoses Diagnosis Intrauterine growth restriction affecting antepartum care of mother in second trimester, fetus 1 of multiple gestation Intrauterine growth restriction affecting antepartum care of mother in second trimester, fetus 2 of multiple gestation Monochorionic diamniotic twin gestation in second trimester documented in this encounter Care Teams Can Cleaner Relationship Specialty Start Date End Date Belén Rooney MD [address] [place] [address] PCP - General Family Medicine 09/29/18 documented as of this encounter
--- OUTSIDE RECORDS SUMMARY | 2024-12-29 13:00 | XMS_ITS | Encounter Summary ---
Author Organization [facility] tem Address [id number] [address] [place] [address] Care Team Providers Care Railcar Brake Operator Name Role Phone Belén Rooney MD Primary Care Provider Reason for Visit * Reason Comments Burnett-di twins FGR both babies Velamentous cord insertion twin A Encounter Details Date Type Department Care Team (Late st Contact Info) Description 12/29/2024 1:00 PM EDT Office Visit Maternal- Medicine at [facility] [address] [place] [phone] Alex Subramanian MD [address] [facility], [address] [place] [phone] 29 weeks gestation of (Primary Dx); Monochorionic diamniotic twin gestation in third trimester; Poor growth affecting management of mother in third trimester, fetus 1 of multiple gestation Social History Tobacco Use Types Packs/Day Years Used Date Smoking Tobacco: Never Smokeless Tobacco: Never Alcohol Use Standard Drinks/Week Comments Not Currently 0 (1 standard drink = 0.6 oz pur e alcohol) [facility] Utilities Answer Date Recorded In the [...] 11:16 AM EDT documented in this encounter Patient Instructions * Attachments The following attachments cannot be sent through Care Everywhere. * Your baby's movement before (Cymro) * Preeclampsia (Cymro) documented in this encounter Progress Notes * Tressa Das RN - 12/29/2024 1:00 PM EDT Headache/epigastric pain/blurry vision/swelling? Denies Cramping/contractions? Patient reports tightening at nighttime, irregular Spotting or vaginal bleeding? No Loss or gush of fluid like your water may have broken? No Recent ER visits or hospitalizations? No Any concerns that you would like me to mention to the provider today? No * Alex Subramanian MD - 12/29/2024 1:00 PM EDT REASON FOR OFFICE VISIT: follow up HISTORY OF PRESENT ILLNESS: Alia Pedro is a pleasant 29 y.o. at 29w1d due on EstimatedDate of Delivery: 03/15/25 . has been complicated by: Monochorionic diamniotic twin FGR FGR Twin A severe, EFW 1%ile, AC <1%ile Normal Dopplers studies FGR B resolved EFW 11%ile, AC 26%ile Normal Doppler studies Velamentous cord insertion vs Marginal of twin A on posterior lower uterus traveling superiorly to posterior placenta. Velamentous cord measures >3cm from internal os prior imaging, no longer consistent with vasa previa please see prior MFM note Currently the patient has no complaints. The patient denies headaches, vision changes, nausea, vomiting, right upper quadrant/epigastric pain, SOB or chest pain. She denies contractions, vaginal bleeding, leaking of fluid. She reports good movement. Aneuploidy screening: Low risk cell free DNA for trisomy 13, 18, 21, monosomy X and 22q11 deletion.Monozygotic twins. Carrier screening: Baby Girls x2 I [...] the morning., Disp: , Rfl: magnesium oxide (MAGOX) 400 mg tablet, Take 1 tablet (400 mg total) by mouth before bedtime., Disp:, Rfl: no115/iron/folic acid ( 19 ORAL), Take [...] , Disp: , Rfl: PHYSICAL EXAMINATION: BP 121/73 (BP Site: Right Arm, BP Postition: Sitting, BP CUFF SIZE: M (9-13 inches)) Pulse 89 Ht 157.5 cm (5' 2 ) Wt 69.9 kg (154 lb 3.2 oz) LMP 06/08/2024 BMI 28.20 kg/m?? . Well-appearing, no acute distress Normal gait well oriented in time place and person. Respirations not labored, speaking comfortably in complete sentences Gravid abdomen Lab Results Component Value Date WBC 9.6 11/07/2024 HGB 11.3 (L) 11/07/2024 HCT 33.3 (L) 11/07/2024 MCV 86 11/07/2024 PLT 253 11/07/2024 OVERALL ASSESMENT -Alia Jordyn Pedro is a pleasant 29 y.o. at 29w1d -monochorionic diamniotic twin , spontaneous - growth restriction of twin A Counseling Ultrasound findings discussed with the patient Adverse outcomes with the growth restriction in the setting of monochorionic diamniotic twin gestation was discussed again She also has an increased risk of requiring a section Location of delivery discussed the patient desires delivery at [facility] She desires delivery at 34 weeks to decrease risks of prematurity [facility] Guideline Recommendations for Delivery Timing ( committee opinion #831) Multifetal gestation - uncomplicated Monochorionic diamniotic twins 34 0/7 - 37 6/7 Multi gestation complicated Monochorionic diamniotic twins with isolated growth restriction 32 0/7-34 6/7 Summary of Recommendations: Continue weekly umbilical artery Doppler, MCA Doppler and ductus venosus and DVPs in the setting ofisolated growth restriction and monochorionic diamniotic twin , through M Repeat growth ultrasound in 3 weeks The patient is undergoing twice weekly NSTs through her primary OB office continue with that Preeclampsia precautions reviewed movement precautions reviewed Delivery at 34 week gestation with ANCS prior to delivery though pending clinical course Recommend magnesium for neuroprotection/prematurity if delivery before 32 weeks Location of delivery at [facility] please initiate transfer of care Please send placenta to pathology Continue to address route of delivery with the patient. The patient desires repeat transvaginal ultrasound again to evaluate the lower uterine segment. DISPOSITION: At this point the patient is in complete care of her order make up clerk. Patient does have ultrasound and office visit scheduled with us. Thank you for allowing me to participate in the care of Alia Pedro. If there any questions please do not hesitate to contact us. Alex Subramanian MD, FACOG (she/hers) Maternal- Medicine [facility] [address] [facility] 1st [place] [address] This document was created with Pocket technology. Though I make every effort to review the dictation as it is transcribed, on occasion the spoken word can be misinterpreted by the technology leading to inappropriate words, phrases, or sentences. This note is addressed to the requesting provider as a consultation for clinical guidance. Specificmedical abbreviations are occasionally used and those are generally approved by the [place]?Board of?Obstetrics and?Gynecology?as well as?[place]???s abbreviations. The above plan of care was based solely on the diagnoses for which a consultation was requested. ?More frequent testing may be indicated based on her other medical/obstetrical conditions. The management of other or medical conditions is beyond the scope of requested consultation and will c ontinue to be followed by the primary order make up clerk or primary care provider. Note to patient: The Cures Act makes medical notes like these available to patients inthe interest of transparency. However, be advised this is a medical document. It is intended as peer to peer communication. It is written in medical language and may contain abbreviations or verbiagethat are unfamiliar. It may appear blunt or direct. Medical documents are intended to carry relevant information, facts as evident, and the clinical opinion of the practitioner. documented in this encounter Plan of Treatment Upcoming Encounters Date Type Department Care Team (Late st Contact Info) Description 01/06/2025 8:45 AM EDT Appointment [facility] US Imaging [address] [place] [phone] 01/10/2025 8:30 AM EDT Office Visit Maternal- Medicine at [facility] [address] [place] [phone] Jefferson Nava MD [address] [facility], [address] [place] [address] 01/12/2025 9:00 AM EDT Appointment [facility] US Imaging [address] [place] [address] 01/14/2025 10:30 AM EDT Office Visit [facility] [address] [facility] [address] [place] [address] Morenita Euceda MD [address] [facility], [address] [place] [address] 01/21/2025 8:00 AM EDT Appointment [facility] US Imaging [address] [place] [address] documented as of this encounter Visit Diagnoses Diagnosis 29 weeks gestation of - Primary Monochorionic diamniotic twin gestation in third trimester Poor growth affecting management of mother in third trimester, fetus 1 of multiple gestation documented in this encounter Care Teams Railcar Brake Operator Relationship Specialty Start Date End Date Belén Rooney MD [address] [place] [phone] PCP - General Family Medicine 09/29/18 documented as of this encounter
--- OUTSIDE RECORDS SUMMARY | 2024-12-30 11:30 | XMS_ITS | Encounter Summary ---
Author Organization [facility] Address [address] [place] [address] Care Team Providers Care Identification Printing Machine Setter Name Role Phone Marlon Laguna MD Primary Care Provider [phone] Saul Eugene DO Unavailable Encounter Details Date Type Department Care Team (Late st Contact Info) Description 12/30/2024 11:30 AM EDT Routine [facility] [place] [facility] [address] [phone] Saul Eugene DO [address] [facility] [address] [place], [id number] 29 weeks gestation of ([facility]); Monochorionic diamniotic twin gestation in second trimester ([facility]); Gestational diabetes mellitus (GDM), antepartum, gestational diabetes method of control unspecified ([facility]); Third trimester ([facility]) Social History Tobacco Use Types [...] Sign Reading Time Taken Comments Blood Pressure 110/62 12/30/2024 11:29 AM EDT Pulse - - Temperature - - Respiratory Rate - - Oxygen Saturation - - Inhaled Oxygen Concentration - - Weight 70.2 kg (154 lb 12.8 oz) 025 11:29 AM EDT Height - - Body Mass Index 28.31 02/10/2023 11:39 AM EDT documented in this encounter Progress Notes * Oneyda Choroberth, DORA - 12/30/2024 11:30 AM EDT Reason for Appointment: Patient ID: Alia Pedro is a 29 y.o. female who presents for No chief complaint on file. Patient presents today for Return OB appointment. MEDICATIONS Current Outpatient Medications Medication Instructions Alcohol Swabs (Alcohol Prep Pad) 70 % pads 1 Pad, Topical, Daily, Use four times daily to check FSBS. aspirin 81 mg, Daily RT Blood Glucose Monitoring Suppl (D-Care [...] APPENDECTOMY 07/2018 Dr. Bess WISDOM TOOTH EXTRACTION [place] teeth REVIEW OF SYSTEMS Review of Systems: [...] nursing note reviewed. Exam conducted with a motorcycle tester present. Vitals: Estimated body mass index is 28.31 kg/m?? as calculated from the following: Height as of 02/10/23: 5' 2 . Weight as of this encounter: 154 lb 12.8 oz. BP: 110/62 Patient's last menstrual period was 06/08/2024. ASSESSMENT & PLAN ICD-10-CM 1. 29 weeks gestation of ([facility]) Z3A.29 POCT urinalysis dipstick manually resulted 2. Monochorionic diamniotic twin gestation in second trimester ([facility]) O30.032 POCT urinalysis dipstick manually resulted 3. Gestational diabetes mellitus (GDM), antepartum, gestational diabetes method of control unspecified ([facility]) O24.419 POCT urinalysis dipstick manually resulted 4. Third trimester ([facility]) Z34.93 POCT urinalysis dipstick manually resulted Patient presents today for a routine obstetrics appointment. Patient is currently 29w2d with twin gestation with an Estimated Date of Delivery: 03/15/25. Patient saw MFM and stated recommendations are VICE PRESIDENT OF [employer]ELOPMENT in [place] that delivers at [facility] for remainder of and possible delivery at 34 weeks. Patient is agreeable to have referral to get established and will also setup follow up appointment locally to ensure comfort of transition. Reviewed patients sugar results and results appear WNL. Nursing to refer to [facility] Obstetrics/Gynecology located at [address] [place] [address] [address] [facility] [address]. Patient to return to clinic in 2 weeks. Documented by Oneyda Sood LPN on behalf of: Saul Eugene DO documented in this encounter Plan of Treatment Upcoming Encounters Date Type Department Care Team (Late st Contact Info) Description 01/18/2025 9:30 AM EDT Routine [facility] [address] [place] [address] [place] [address] Saul Eugene DO [address] [place] [address] 03/28/2025 2:00 PM EST Office Visit [facility] [address] [place], [place] [address] [address] Saul Eugene DO [address] [place] [address] documented as of this encounter Goals Goal Patient Goal Type Associated Problems Recent Progress Patient-Stated? Author Reminders Care Plan OB Reminders No Open Scheduling, Background documented as of this encounter Procedures Procedure Name Priority Date/Time Associated Diagnosis Comments POCT URINALYSIS DIPSTICK Routine 12/30/2024 11:36 AM EDT 29 weeks gestation of ([facility]) Monochorionic diamniotic twin gestation in second trimester ([facility]) Gestational diabetes mellitus (GDM), antepartum, gestational diabetes method of control unspecified ([facility]) Third trimester ([facility]) documented in this encounter Results * POCT urinalysis dipstick manually resulted (12/30/2024 11:36 AM EDT) Color, UA Yellow Clarity, UA Clear Glucose, UA Negative Negative - 2000(110) ++++ mg/dL Bilirubin, UA Negative Negative - 4(70) +++ mg/dL Ketones, UA Negative Negative - 160(16) ++++ mg/dL Spec Grav, UA 1.015 1 - 1.03 Blood, UA Negative Negative - 50 Nuno/mcL pH, UA 7.0 5 - 9 Protein, UA Negative Negative - 2000(20) ++++ mg/dL Urobilinogen, UA 1.0 0.2 - 12 mg/dL Leukocytes, UA Negative Negative - 500+++ Lisa/mcL Nitrite, UA Negative Negative - Positive Urine 12/30/2024 11:3 6 AM EDT Saul Eugene DO POINT OF CARE TEST ENTER/EDIT OR DERABLES Final Result documented in this encounter Visit Diagnoses Diagnosis 29 weeks gestation of ([facility]) Monochorionic diamniotic twin gestation in second trimester ([facility]) Gestational diabetes mellitus (GDM), antepartum, gestational diabetes method of control unspecified ([facility]) Third trimester ([facility]) state, incidental documented in this encounter Additional Health Concerns Active Problems Noted Date Diagnosed Date OB Reminders 08/14/2024 documented as of this encounter Care Teams Identification Printing Machine Setter Relationship Specialty Start Date End Date Marlon Laguna MD [address] [place] [address] PCP - General Family Medicine 08/29/23 Saul Eugene DO [address] [place] [address] [place] [address] Referring Physician Obstetrics and Gynecology 08/16/24 documented as of this encounter
--- NOTE | 2025-01-04 | US_ITS ---
The [address] [address] Patient Name: MINNIE BNUCH MRN: [id number] date: 1995 Sex: F Assigned Patient Location: US Current Patient Location: Accession/Order Number: [id number] Exam Date: 01/04/2025 14:53 Report Date: 01/04/2025 14:54 At the request of: VIC MCKEON DO Procedure: US OB BPP w non-stress Biophysical profile. Reason for exam: Twin COMPARISON: 12/24/2024 TECHNIQUE: The butadiene converter operator reports a fetus A BPP of 8 out of 8. MVP is 6.1 cm. heart rate 145 bpm. The butadiene converter operator reports fetus B BPP of 8 out of 8. MVP is 8.3 cm. heart rate 157 bpm. US/US OB BPP w non-stress IMPRESSION: BPP 8out of 8 for Fetus A. BPP 8 out of 8 for fetus B. Impression dictated by: Barrington Spears Jr., D.O. 01/04/2025 2:54 PM Dictation Location: [place] [address] Electronically authenticated by: [id number] Y Date: 01/04/2025 14:54
--- NOTE | 2025-01-04 | US_ITS ---
[address] [address] Patient Name: MINNIE BUNCH MRN: [id number] date: 1995 Sex: F Assigned Patient Location: [facility] Current Patient Location: Accession/Order Number: [id number] Exam Date: 01/04/2025 14:53 Report Date: 01/04/2025 14:54 At the request of: VIC MCKEON DO Procedure: US OB BPP w non-stress Biophysical profile. Reason for exam: Twin COMPARISON: 12/24/2024 TECHNIQUE: The linoleum tile layer reports a fetus A BPP of 8 out of 8. MVP is 6.1 cm. heart rate 145 bpm. The linoleum tile layer reports fetus B BPP of 8 out of 8. MVP is 8.3 cm. heart rate 157 bpm. US/US OB BPP w non-stress IMPRESSION: BPP 8out of 8 for Fetus A. BPP 8 out of 8 for fetus B. Impression dictated by: Barrington Spears Jr., D.O. 01/04/2025 2:54 PM Dictation Location: [place] [address] Electronically authenticated by: [id number] Y Date: 01/04/2025 14:54
--- OUTSIDE RECORDS SUMMARY | 2025-01-04 11:05 | XMS_ITS | Encounter Summary ---
Author Organization [employer] tem Address [facility] [id number] [address] [place] [address] Care Team Providers Care Assistant Infant Teacher Name Role Phone Belén Rooney MD Primary Care Provider Encounter Details Date Type Department Care Team (Latest Contact Info) Description 12/27/2024 Travel Social History Tobacco Use Types Packs/Day Years Used Date Smoking Tobacco: Never Smokeless Tobacco: Never Alcohol Use Standard Drinks/Week Comments Not Currently 0 (1 standard drink = 0.6 oz pur e alcohol) RARE [facility] Utilities Answer Date Recorded In the past [...] Info) Description 01/06/2025 8:45 AM EDT Appointment [facility] Imaging [address] [place] [phone] 01/10/2025 8:30 AM EDT Office Visit Maternal- Medicine at [facility] [address] [place] [address] Jeffesron Nava MD [address] [facility] [address] [place] [address] 01/12/2025 9:00 AM EDT Appointment [facility] US Imaging [address] [place] [phone] 01/14/2025 10:30 AM EDT Office Visit [facility] Obstetrics/Gynecology [address] [facility] [address] [place] [address] Morenita Euceda MD [address] [facility] [place] [address] 01/21/2025 8:00 AM EDT Appointment [facility] US Imaging [address] [place] [address] documented as of this encounter Visit Diagnoses Not on filedocumented in this encounter Care Teams Assistant Infant Teacher Relationship Specialty Start Date End Date Belén Rooney MD [address] [place] [phone] PCP - General Family Medicine 09/29/18 documented as of this encounter
--- OUTSIDE RECORDS SUMMARY | 2025-01-04 11:05 | XMS_ITS | Encounter Summary ---
Author Organization [facility] Address [address] [place] [address] Care Team Providers Care Main Entree Cook And Cashier Name Role Phone Marlon Laguna MD Primary Care Provider [phone] Saul Eugene DO Unavailable Encounter Details Date Type Department Care Team (Late st Contact Info) Description 08/16/2024 Abstract [facility] [address] [place] [phone] Saul Eugene DO [address] [place], [id number] Social History [...] 01/18/2025 9:30 AM EDT Routine [facility] [address] [place] [address] Saul Eugene DO [address] [place] [address] 03/28/2025 2:00 PM EST Office Visit [facility] [place] [facility] [address] [facility] [place] [address] Saul Eugene DO [address] [facility] [place] [address] documented as of this encounter Goals Goal Patient Goal Type Associated Problems Recent Progress Patient-Stated? Author Reminders Care Plan OB Reminders No Open Scheduling, Background documented as of this encounter Visit Diagnoses Not on filedocumented in this encounter Additional Health Concerns Active Problems Noted Date Diagnosed Date OB Reminders 08/14/2024 documented as of this encounter Care Teams Main Entree Cook And Cashier Relationship Specialty Start Date End Date Marlon Laguna MD [address] [place] [address] PCP - General Family Medicine 08/29/23 Saul Eugene DO [address] [place] [address] Referring Physician Obstetrics and Gynecology 08/16/24 documented as of this encounter
--- OUTSIDE RECORDS SUMMARY | 2025-01-04 11:05 | XMS_ITS | Encounter Summary ---
Author Organization [facility] Address [address] [place] [address] Care Team Providers Care Workers' Compensation Magistrate Name Role Phone Marlon Laguna MD Primary Care Provider [phone] Vic Eugene DO Unavailable Encounter Details Date Type Department Care Team (Late st Contact Info) Description 12/24/2024 Clinisync Result Encounter [facility] External Department Unsolicited Vic Eugene, [address] [place] [place], [place] [phone] Social History Tobacco Use Types Packs/Day Years [...] Info) Description 01/18/2025 9:30 AM EDT Routine [facility] [place] [facility] [address] [place] [address] Vic Eugene, DO [address] [facility] [place] [address] 03/28/2025 2:00 PM EST Office Visit [facility] [place] [facility] [address] [facility] [place] [address] Vic Eugene, DO [address] [facility] [place] [address] documented as of this encounter Goals Goal Patient Goal Type Associated Problems Recent Progress Patient-Stated? Author Reminders Care Plan OB Reminders No Open Scheduling, Background documented as of this encounter Procedures Procedure Name Priority Date/Time Associated Diagnosis Comments US OB BPP W NON-STRESS 12/24/2024 2:02 PM EDT documented in this encounter Results * US OB BPP W NON-STRESS (12/24/2024 2:02 PM EDT) Anatomical Region Laterality Modality Other 12/24/2024 2:02 PM EDT Narrative 12/24/2024 2:05 PM EDT The [address] [address] Ultrasound Report Signed Patient: MINNIE BUNCH MR#: [id number] : 1995 Acct:[id number] Age/Sex: 29 / F ADM Date: 12/24/24 Loc: [facility]BCO Attending Dr: Vic Eugene D.O. Ordering Physician: Vic Eugene D.O. Date of Service: 12/24/24 Procedure(s): US OB BPP w non-stress Accession Number(s): [id number] cc: Vic Eugene D.O.; Marlon Laguna M.D. The [address] [address] Patient Name: MINNIE BUNCH MRN: [id number] date: 1995 Sex: F Assigned Patient Location: [facility]O Current Patient Location: Accession/Order Number: [id number] Exam Date: 12/24/2024 14:00 Report Date: 12/24/2024 14:02 At the request of: VIC EUGENE DO Procedure: US OB BPP w non-stress Biophysical profile. Reason for exam: Twin COMPARISON: 12/21/2024 TECHNIQUE: The supervisor carbon paper coating reports a fetus A BPP of 8 out of 8. MVP is 8.4 cm. heart rate 163 bpm. The supervisor carbon paper coating reports fetus B BPP of 8 out of 8. MVP is 5.4 cm. heart rate 147 bpm. US/US OB BPP w non-stress IMPRESSION: BPP 8out of 8 for Fetus A. BPP 8 out of 8 for fetus B. Impression dictated by: Barrington Spears Jr., D.O. 12/24/2024 2:02 PM Dictation Location: [place] [address] Electronically authenticated by: [id number] Y Date: 12/24/2024 14:02 Dictated By: Barrington Spears M.D. Signed By: 12/24/24 1405 DD/ 1402 TD/TT: Shoe Shanker: Procedure Note Radiology, Radiologist, - 12/24/2024 [place] [address] Ultrasound Report Signed Patient: MINNIE BUNCH AMR#: [id number] : 1995Acct:[id number] Age/Sex: Date: 12/24/24 Loc: FBCO Attending Dr: Vic Eugene D.O. Ordering Physician: Vic Eugene D.O. Date of Service: 12/24/24 Procedure(s): US OB BPP w non-stress Accession Number(s): [id number] cc: Vic Eugene D.O.; Marlon Laguna M.D. The [place] [address] Patient Name: MINNIE BUNCH MRN: [facility]:[id number] date: 1995 Sex: F Assigned Patient Location: [facility] Current Patient Location: Accession/Order Number: [id number] Exam Date: 12/24/2024 14:00 Report Date: 12/24/2024 14:02 At the request of: VIC EUGENE DO Procedure: US OB BPP w non-stress Biophysical profile. Reason for exam: Twin COMPARISON: 12/21/2024 TECHNIQUE: The supervisor carbon paper coating reports a fetus A BPP of 8 out of 8. MVP is8.4 cm. heart rate 163 bpm. The supervisor carbon paper coating reports fetus B BPP of 8 out of 8. MVP is 5.4 cm. heart rate 147 bpm. US/US OB BPP w non-stress IMPRESSION: BPP 8out of 8 for Fetus A. BPP 8 out of 8 for fetus B. Impression dictated by: Barrington Spears Jr., D.O. 12/24/2024 2:02 PM Dictation Location: [place] [address] Electronically authenticated by: [id number] Y Date: 4:02 Dictated By: Barrington Spears M.D. Signed By:12/24/24 1405 DD/ 1402 TD/TT: Shoe Shanker: Vic Eugene DO [facility] Final Result documented in this encounter Visit Diagnoses Not on filedocumented in this encounter Additional Health Concerns Active Problems Noted Date Diagnosed Date OB Reminders 08/14/2024 documented as of this encounter Care Teams Workers' Compensation Magistrate Relationship Specialty Start Date End Date Marlon Laguna MD [address] [place] [facility] [place] [address] PCP - General Family Medicine 08/29/23 Vic Eugene DO [address] [place] [address] [place] [address] Referring Physician Obstetrics and Gynecology 08/16/24 documented as of this encounter
--- OUTSIDE RECORDS SUMMARY | 2025-01-04 11:05 | XMS_ITS | Encounter Summary ---
Author Organization [facility] Address [address] [place] [address] Care Team Providers Care Assembler Steam And Gas Turbine Name Role Phone Marlon Laguna MD Primary Care Provider [phone] Saul Eugene DO Unavailable Encounter Details Date Type Department Care Team (Late st Contact Info) Description 08/16/2024 Abstract [facility] PAL[facility] [address] [place] [phone] Saul Eugene DO [address] [place], [facility] [...] [facility] [address] [place] [address] Saul Eugene DO [address] [place] [address] 03/28/2025 2:00 PM EST Office Visit [facility] [place] [facility] [address] [facility] [address] Saul Eugene DO [address] [facility] [place] [address] documented as of this encounter Goals Goal Patient Goal Type Associated Problems Recent Progress Patient-Stated? Author Reminders Care Plan OB Reminders No Open Scheduling, Background documented as of this encounter Visit Diagnoses Not on filedocumented in this encounter Additional Health Concerns Active Problems Noted Date Diagnosed Date OB Reminders 08/14/2024 documented as of this encounter Care Teams Assembler Steam And Gas Turbine Relationship Specialty Start Date End Date Marlon Laguna MD [address] [facility] [address] PCP - General Family Medicine 08/29/23 Saul Eugene DO [address] [place] [address] Referring Physician Obstetrics and Gynecology 08/16/24 documented as of this encounter
--- OUTSIDE RECORDS SUMMARY | 2025-01-04 11:05 | XMS_ITS | Encounter Summary ---
Author Organization [facility] Address [address] [place] [address] Care Team Providers Care Project Portfolio Analyst Name Role Phone Marlon Laguna MD Primary Care Provider [phone] Saul Eugene DO Unavailable Encounter Details Date Type Department Care Team (Late st Contact Info) Description 12/01/2024 Abstract [facility] [place] [facility] [address] [place] [address] Ximena Aly MA Social History Tobacco [...] 9:30 AM EDT Routine [facility] [address] [place] [address] Saul Eugene DO [address] [place] [address] 03/28/2025 2:00 PM EST Office Visit [facility] [place] [facility] [address] [place] [address] Saul Eugene DO [address] [place] [address] documented as of this encounter Goals Goal Patient Goal Type Associated Problems Recent Progress Patient-Stated? Author Reminders Care Plan OB Reminders No Open Scheduling, Background documented as of this encounter Visit Diagnoses Not on filedocumented in this encounter Additional Health Concerns Active Problems Noted Date Diagnosed Date OB Reminders 08/14/2024 documented as of this encounter Care Teams Project Portfolio Analyst Relationship Specialty Start Date End Date Marlon Laguna MD [address] [facility] [address] PCP - General Family Medicine 08/29/23 Saul Eugene DO [address] [place] [address] Referring Physician Obstetrics and Gynecology 08/16/24 documented as of this encounter
--- OUTSIDE RECORDS SUMMARY | 2025-01-04 11:05 | XMS_ITS | Encounter Summary ---
Author Organization [facility] Address [address] [place] [address] Care Team Providers Care Truckman Name Role Phone Marlon Laguna MD Primary Care Provider [phone] Saul Eugene DO Unavailable Encounter Details Date Type Department Care Team (Late st Contact Info) Description 08/16/2024 Abstract [facility] PALMER [address] [place] [phone] Saul Eugene DO [address] [place], [id number] Social History Tobacco Use Types Packs/Day Years [...] PALMER [address] [place] [address] Saul Eugene DO [address] [place] [address] 03/28/2025 2:00 PM EST Office Visit [facility] [place] [facility] [address] [facility] [place] [address] Saul Eugene DO [address] [facility] [place] [address] documented as of this encounter Goals Goal Patient Goal Type Associated Problems Recent Progress Patient-Stated? Author Reminders Care Plan OB Reminders No Open Scheduling, Background documented as of this encounter Visit Diagnoses Not on filedocumented in this encounter Additional Health Concerns Active Problems Noted Date Diagnosed Date OB Reminders 08/14/2024 documented as of this encounter Care Teams Truckman Relationship Specialty Start Date End Date Marlon Laguna MD [address] [facility] [place] [address] PCP - General Family Medicine 08/29/23 Saul Eugene DO [address] [place] [address] Referring Physician Obstetrics and Gynecology 08/16/24 documented as of this encounter
--- OUTSIDE RECORDS SUMMARY | 2025-01-04 11:05 | XMS_ITS | Encounter Summary ---
Author Organization [facility] Address [address] [place] [address] Care Team Providers Care Historic Sites Registrar Name Role Phone Marlon Laguna MD Primary Care Provider [phone] Saul Eugene DO Unavailable Encounter Details Date Type Department Care Team (Late st Contact Info) Description 12/06/2024 Abstract [facility] PALMER [address] [place] [phone] Saul Eugene DO [address] [place], [facility] Social History Tobacco Use Types Packs/Day [...] PALMER [address] [place] [address] Saul Eugene DO [address] [place] [address] 03/28/2025 2:00 PM EST Office Visit [facility] [place] [facility] [address] [facility] [place] [address] Saul Eugene DO [address] [facility] [place] [address] documented as of this encounter Goals Goal Patient Goal Type Associated Problems Recent Progress Patient-Stated? Author Reminders Care Plan OB Reminders No Open Scheduling, Background documented as of this encounter Visit Diagnoses Not on filedocumented in this encounter Additional Health Concerns Active Problems Noted Date Diagnosed Date OB Reminders 08/14/2024 documented as of this encounter Care Teams Historic Sites Registrar Relationship Specialty Start Date End Date Marlon Laguna MD [address] [facility] [place] [address] PCP - General Family Medicine 08/29/23 Saul Eugene DO [address] [place] [address] Referring Physician Obstetrics and Gynecology 08/16/24 documented as of this encounter
--- OUTSIDE RECORDS SUMMARY | 2025-01-04 11:05 | XMS_ITS | Encounter Summary ---
Author Organization [facility] Address [address] [place] [address] Care Team Providers Care Degree Clerk Name Role Phone Marlon Laguna MD Primary Care Provider [phone] Saul Eugene DO Unavailable Encounter Details Date Type Department Care Team (Late Contact Info) Description 03/03/2024 Orders Only [facility] [place] [facility] [address] [place] [address] Gabrielle Mayer LPN [address] [employer] [place] [id number] Social History Tobacco Use Types Packs/Day Years [...] 01/18/2025 9:30 AM EDT Routine [facility] [place] [facility] [address] [place] [address] Saul Eugene DO [address] [facility] [place] [address] 03/28/2025 2:00 PM EST Office Visit [facility] [place] [facility] [address] [facility] [place] [address] Saul Eugene DO [address] [facility] [place] [address] documented as of this encounter Procedures Procedure Name Priority Date/Time Associated Diagnosis Comments PAP SMEAR Routine 02/23/2024 12:00 AM EDT documented in this encounter Results * Pap Smear (02/23/2024 12:00 AM EDT) Swab Cervical swab / Unknown us Saul Eugene DO LAB CYTOLOGY ORDERABLES Final Re sult EXTERNAL LAB documented in this encounter Visit Diagnoses Not on filedocumented in this encounter Care Teams Degree Clerk Relationship Specialty Start Date End Date Marlon Laguna MD [address] [facility] [place] [address] PCP - General Family Medicine 08/29/23 Saul Eugene DO [address] [facility] [place] [address] Referring Physician Obstetrics and Gynecology 08/16/24 documented as of this encounter
--- OUTSIDE RECORDS SUMMARY | 2025-01-04 11:05 | XMS_ITS | Encounter Summary ---
Author Organization [facility] [email or web address] [facility] tem Address [facility] [id number] [address] [place] [address] Care Team Providers Care Manpower Development Manager Name Role Phone Belén Rooney MD Primary Care Provider [phone] Encounter Details Date Type Department Care Team (Late st Contact Info) Description 12/06/2024 Orders Only Maternal- Medicine at [facility] [address] [place] [address] Ref Prov, [place] [address] Social History Tobacco Use Types Packs/Day Years Used Date Smoking Tobacco: Never Smokeless Tobacco: Never Alcohol Use Standard Drinks/Week Comments Not Currently 0 (1 standard drink = 0.6 oz pur e alcohol) RARE [facility] Utilities Answer Date Recorded In the past 12 months has [employer], gas, oil, or water [employer] threatened to shut off services in your [...] Appointment [facility] US Imaging [address] [place] [address] 01/10/2025 8:30 AM EDT Office Visit Maternal- Medicine at [facility] [address] [place] [address] Jefferson Nava MD [address] [facility], [address] [place] [address] 01/12/2025 9:00 AM EDT Appointment [facility] US Imaging [address] [place] [address] 01/14/2025 10:30 AM EDT [facility]ne[facility] [address] [facility] [address] [place] [address] Morenita Euceda MD [address] [facility] [place] [address] 01/21/2025 8:00 AM EDT Appointment [facility] US Imaging [address] [place] [address] documented as of this encounter Procedures Procedure [...] on filedocumented in this encounter Care Teams Manpower Development Manager Relationship Specialty Start Date End Date Belén Rooney MD [address] [place] [phone] PCP - General Family Medicine 09/29/18 documented as of this encounter
--- OUTSIDE RECORDS SUMMARY | 2025-01-04 11:05 | XMS_ITS | Encounter Summary ---
Author Organization [employer] tem Address [facility] [id number] [address] [place] [address] Care Team Providers Care Spark Plug Tester Name Role Phone Belén Rooney MD Primary Care Provider Encounter Details Date Type Department Care Team (Latest Contact Info) Description 01/04/2025 Travel Social History Tobacco Use Types Packs/Day Years Used Date Smoking Tobacco: Never Smokeless Tobacco: Never Alcohol Use Standard Drinks/Week Comments Not Currently 0 (1 standard drink = 0.6 oz pur e alcohol) RARE [facility] Utilities Answer Date Recorded In the [...] 01/06/2025 8:45 AM EDT Appointment [facility] US Imaging [address] [place] [address] 01/10/2025 8:30 AM EDT Office Visit Maternal- Medicine at [facility] [address] [place] [address] Jefferson Nava MD [address] [facility] [address] [place] [address] 01/12/2025 9:00 AM EDT Appointment [facility] US Imaging [address] [place] [address] 01/14/2025 10:30 AM EDT Office Visit [facility] Physicians Obstetrics/Gynecology [address] [facility] [address] [place] [address] Morenita Euceda MD [address] [facility] [place] [address] 01/21/2025 8:00 AM EDT Appointment [facility] US Imaging [address] [place] [address] documented as of this encounter Visit Diagnoses Not on filedocumented in this encounter Care Teams Spark Plug Tester Relationship Specialty Start Date End Date Belén Rooney MD [address] [place] [address] PCP - General Family Medicine 09/29/18 documented as of this encounter
--- OUTSIDE RECORDS SUMMARY | 2025-01-04 11:05 | XMS_ITS | Encounter Summary ---
Author Organization [facility] tem Address [facility] [id number] [address] [place] [address] Care Team Providers Care Tower Operator Name Role Phone Belén Rooney MD Primary Care Provider [phone] Encounter Details Date Type Department Care Team (Late st Contact Info) Description 11/04/2024 Orders Only Maternal- Medicine at [facility] [address] [facility] [place] [address] Susan Beltran LPN Intrauterine growth restriction affecting [...] = 0.6 oz pur e alcohol) [facility] [place] Utilities Answer Date Recorded In the past 12 months has [employer] electric, gas, oil, or water company threatened [...] Info) Description 01/06/2025 8:45 AM EDT Appointment [facility] US Imaging [address] [place] [address] 01/10/2025 8:30 AM EDT Office Visit Maternal- Medicine at [facility] [address] [place] [address] Jefferson Nava MD [address] [facility], [address] [place] [address] 01/12/2025 9:00 AM EDT Appointment [facility] US Imaging [address] [place] [phone] 01/14/2025 10:30 AM EDT Office Visit [facility] Physicians Obstetrics/Gynecology [address] [place] [address] [address] [place] [address] Morenita Euceda MD [address] [facility] [place] [address] 01/21/2025 8:00 AM EDT Appointment [facility] US Imaging [address] [place] [address] documented as of this encounter [...] Palpitations documented in this encounter Care Teams Tower Operator Relationship Specialty Start Date End Date Belén Rooney MD [address] [place] [phone] PCP - General Family Medicine 09/29/18 documented as of this encounter
--- OUTSIDE RECORDS SUMMARY | 2025-01-04 11:05 | XMS_ITS | Encounter Summary ---
Author Organization [employer] [facility] tem Address [id number] [address] [place] [address] Care Team Providers Care Photographic Process Worker Name Role Phone Belén Rooney MD Primary Care Provider [phone] Reason for Referral * Diagnostic Imaging (Routine) - Pending Review Specialty Diagnoses / Procedures Referred By Burt sellers Referred To Contact Maternal and Medicine Diagnoses Monochorionic diamniotic twin gestation in second trimester Procedures [facility] with or without consult Benjamin Subramanian MD [address] [address] Phone: tel: fax: Maternal- Medicine at [facility] [address] [place] [address] Phone: tel: fax: Referral ID Status Reason Start Date Expiration Date V isits Requested Visits Authorized [id number] Pending Review 10/13/2024 10/13/2025 1 1 Encounter Details Date Type Department Care Team (Late st Contact Info) Description 10/13/2024 Orders Only Maternal- Medicine at [facility] [address] [place] [phone] Brooklyn Campos RN Monochorionic diamniotic twin gestation [...] 01/06/2025 8:45 AM EDT Appointment [facility] Imaging [address] [place] [phone] 01/10/2025 8:30 AM EDT Office Visit Maternal- Medicine at [facility] [address] [place] [phone] Jefferson Nava MD [address], [address] [place] [address] 01/12/2025 9:00 AM EDT Appointment [facility] Imaging [address] [place] [phone] 01/14/2025 10:30 AM EDT [facility] [address] [facility] [address] [facility] [place] [address] Morenita Euceda MD [address] [facility] [place] [address] 01/21/2025 8:00 AM EDT Appointment [facility] US Imaging [address] [place] [address] documented as of this encounter Results * US MFM LMTD OB, 1 OR MORE FETUS (11/22/2024 9:53 AM EDT) Anatomical Region Laterality Modality OB-SELLING MANAGER Ultrasound 11/22/2024 8:10 AM EDT Narrative 11/22/2024 10:59 AM EDT NAME: ALIVIA HARTMAN MANOJ : 1995 SEX: F Accession Number: [id number] ORDERING PHYSICIAN: BENJAMIN SUBRAMANIAN REFERRING PHYSICIAN: VIC MCKEON Coding ----- --------- Procedures 40823: Limited OB / NATHAN, 1 or More Fetuses 39283: Doppler velocimetry, ; umbilical artery. 2 46259: Doppler velocimetry, ; middle cerebral artery. 2 99907: Doppler Ductus Venosus. 2 Indication ----- --------- [place]-Di twin , IUGR-Poor growth-twin A, Pre term contractions, Supervision of high risk (elevated Doppler - Twin B) History ----- --------- OB History 1. Para 0 [id number] Maternal Assessment ----- --------- Physical Exam Height [...] view. RVOT view. LVOT view. 3-vessel view. 3-doztal-jdlglem view. Situs. Bicaval view. Cardiac position. Cardiac [...] PI 1.34 4% [place] 0.76 39% [facility] PS 29.59 cm/s PS 0.97 MoM ED [...] HARTMAN : 1995 SEX: F Accession Number: [id number] ORDERING PHYSICIAN: BENJAMIN SUBRAMANIAN REFERRING PHYSICIAN: VIC MCKEON Coding ----- --------- Procedures 66317: Limited OB / NATHAN, 1 or More Fetuses 61801: Doppler velocimetry, ; umbilical artery. 2 15099: Doppler velocimetry, ; middle cerebral artery. 2 99680: Doppler Ductus Venosus. 2 Indication ----- --------- [place]-Di twin , IUGR-Poor growth-twin A, Pre termcontractions, Supervision of high risk (elevated Doppler - Twin B) History ----- --------- OB History 1. Para 0 [id number] Maternal Assessment ----- --------- Physical Exam Height [...] 4-chamber view. RVOT view. LVOT view. 3-vessel view.6-sbnjgs-zluemqe view. Situs. Bicaval view. Cardiac position. Cardiac [...] thepatient as necessary. us Benjamin Subramanian MD IMG ORDERABLES Final Re sult documented in this encounter Visit Diagnoses Diagnosis Monochorionic diamniotic twin gestation in second trimester- Primary Monochorionic diamniotic twin gestation in second trimester documented in this encounter Care Teams Photographic Process Worker Relationship Specialty Start Date End Date Belén Rooney MD [address] [place] [phone] PCP - General Family Medicine 09/29/18 documented as of this encounter
--- OUTSIDE RECORDS SUMMARY | 2025-01-04 11:06 | XMS_ITS | Encounter Summary ---
Author Organization [facility] Address [address] [place] [address] Care Team Providers Care Animal Hospital Clerk Name Role Phone Marlon Laguna MD Primary Care Provider [phone] Saul Eugene DO Unavailable Encounter Details Date Type Department Care Team (Late st Contact Info) Description 11/02/2024 Abstract [facility] [address] [place] [address] Ximena Aly MA Social [...] Saul Eugene DO [address] [place] [address] 03/28/2025 2:00 PM EST Office Visit [facility]BOS[facility] [address] [place] [phone] Saul Eugene DO [address] [place] [address] documented as of this encounter Goals Goal Patient Goal Type Associated Problems Recent Progress Patient-Stated? Author Reminders Care Plan OB Reminders No Open Scheduling, Background documented as of this encounter Visit Diagnoses Not on filedocumented in this encounter Additional Health Concerns Active Problems Noted Date Diagnosed Date OB Reminders 08/14/2024 documented as of this encounter Care Teams Animal Hospital Clerk Relationship Specialty Start Date End Date Marlon Laguna MD [address] [facility] [place] [phone] PCP - General Family Medicine 08/29/23 Saul Eugene DO [address] [place] [address] Referring Physician Obstetrics and Gynecology 08/16/24 documented as of this encounter
--- OUTSIDE RECORDS SUMMARY | 2025-01-04 11:06 | XMS_ITS | Encounter Summary ---
Author Organization [facility] Address [address] [place] [address] Care Team Providers Care Flat Sorting Machine Clerk Name Role Phone Marlon Laguna MD Primary Care Provider [phone] Saul Eugene DO Unavailable Encounter Details Date Type Department Care Team (Late st Contact Info) Description 09/27/2024 Abstract [facility] [address] [place] [phone] Saul Eugene DO [address] [place], [place] [...] PALMER [address] [place] [address] Saul Eugene DO [address] [place] [address] 03/28/2025 2:00 PM EST Office Visit [facility] [address] [facility] [place] [address] Saul Eugene DO [address] [facility] [place] [address] documented as of this encounter Goals Goal Patient Goal Type Associated Problems Recent Progress Patient-Stated? Author Reminders Care Plan OB Reminders No Open Scheduling, Background documented as of this encounter Visit Diagnoses Not on filedocumented in this encounter Additional Health Concerns Active Problems Noted Date Diagnosed Date OB Reminders 08/14/2024 documented as of this encounter Care Teams Flat Sorting Machine Clerk Relationship Specialty Start Date End Date Marlon Laguna MD [address] [facility] [place] [address] PCP - General Family Medicine 08/29/23 Saul Eugene DO [address] [place] [address] Referring Physician Obstetrics and Gynecology 08/16/24 documented as of this encounter
--- OUTSIDE RECORDS SUMMARY | 2025-01-04 11:06 | XMS_ITS | Encounter Summary ---
Author Organization [facility] Address [address] [place] [address] Care Team Providers Care Manager Sourcing Name Role Phone Marlon Laguna MD Primary Care Provider [phone] Saul Eugene DO Unavailable Encounter Details Date Type Department Care Team (Late st Contact Info) Description 10/12/2024 Abstract [facility] PALMER [address] [place] [phone] Saul Eugene DO [address] [place], [facility] Social History Tobacco Use Types [...] [facility] PALMER [address] [place] [address] Saul Eugene DO [address] [place] [address] 03/28/2025 2:00 PM EST Office Visit [facility] [address] [place] [phone] Saul Eugene DO [address] [facility] [place] [address] documented as of this encounter Goals Goal Patient Goal Type Associated Problems Recent Progress Patient-Stated? Author Reminders Care Plan OB Reminders No Open Scheduling, Background documented as of this encounter Visit Diagnoses Not on filedocumented in this encounter Additional Health Concerns Active Problems Noted Date Diagnosed Date OB Reminders 08/14/2024 documented as of this encounter Care Teams Manager Sourcing Relationship Specialty Start Date End Date Marlon Laguna MD [address] [place] [address] PCP - General Family Medicine 08/29/23 Saul Eugene DO [address] [place] [address] Referring Physician Obstetrics and Gynecology 08/16/24 documented as of this encounter
--- OUTSIDE RECORDS SUMMARY | 2025-01-04 11:06 | XMS_ITS | Encounter Summary ---
Author Organization [facility] Address [address] [place] [address] Care Team Providers Care Manager User Experience Name Role Phone Marlon Laguna MD Primary Care Provider [phone] Saul Eugene DO Unavailable Encounter Details Date Type Department Care Team (Late st Contact Info) Description 11/22/2024 Abstract [facility] PALMER [address] [place] [phone] Saul Eugene DO [address] [place], [facility] Social History Tobacco Use Types Packs/Day [...] PALMER [address] [place] [address] Saul Eugene DO [address] [place] [address] 03/28/2025 2:00 PM EST Office Visit [facility] [address] [facility] [phone] Saul Eugene DO [address] [facility] [place] [address] documented as of this encounter Goals Goal Patient Goal Type Associated Problems Recent Progress Patient-Stated? Author Reminders Care Plan OB Reminders No Open Scheduling, Background documented as of this encounter Visit Diagnoses Not on filedocumented in this encounter Additional Health Concerns Active Problems Noted Date Diagnosed Date OB Reminders 08/14/2024 documented as of this encounter Care Teams Manager User Experience Relationship Specialty Start Date End Date Marlon Laguna MD [address] [facility] [place] [address] PCP - General Family Medicine 08/29/23 Saul Eugene DO [address] [place] [address] Referring Physician Obstetrics and Gynecology 08/16/24 documented as of this encounter
--- OUTSIDE RECORDS SUMMARY | 2025-01-04 11:06 | XMS_ITS | Encounter Summary ---
Author Organization [employer] tem Address [id number] [address] [place] [address] Care Team Providers Care Emergency Room Physician Name Role Phone Belén Rooney MD Primary Care Provider Encounter Details Date Type Department Care Team (Late st Contact Info) Description 01/03/2025 [facility]phone [facility] [address] [facility] [address] [place] [address] Herlinda Moreira Social History Tobacco Use Types Packs/Day Years Used Date Smoking Tobacco: Never Smokeless Tobacco: Never Alcohol Use Standard Drinks/Week Comments Not Currently 0 (1 standard drink = 0.6 oz pur e alcohol) [facility] Utilities Answer Date Recorded In the past 12 months has e [employer], gas, oil, or water company threatened to [...] encounter Miscellaneous Notes * Telephone Encounter - Herlinda Moreira - 01/03/2025 12:37 PM EDT LVM-patient called earlier and talked to Tri and wanted to transfer her at 30 weeks with twins-wants to deliver at [facility]. Dr Raphael agreed to take transfer. M for her to call the office if she would like to schedule. documented in this encounter Plan of Treatment Upcoming Encounters Date Type Department Care Team (Late st Contact Info) Description 01/06/2025 8:45 AM EDT Appointment [facility] Imaging [address] [place] [address] 01/10/2025 8:30 AM EDT Office Visit Maternal- Medicine at [facility] [address] [place] [phone] Jefferson Nava MD [address] [place] [address] 01/12/2025 9:00 AM EDT Appointment [facility] Imaging [address] [place] [phone] 01/14/2025 10:30 AM EDT Office Visit [facility] Obstetrics/Gynecology [address] [facility] [address] [place] [address] Morenita Euceda MD [address] [facility] [place] [address] 01/21/2025 8:00 AM EDT Appointment [facility] US Imaging [address] [place] [phone] documented as of this encounter Visit Diagnoses Not on filedocumented in this encounter Care Teams Emergency Room Physician Relationship Specialty Start Date End Date Belén Rooney MD [address] [place] [phone] PCP - General Family Medicine 09/29/18 documented as of this encounter
--- OUTSIDE RECORDS SUMMARY | 2025-01-04 11:06 | XMS_ITS | Clinical Summary ---
Author Organization [employer] tem Address [facility]-[id number] [address] [place] [address] Care Team Providers Care Brim Pouncer Name Role Phone Belén Rooney MD Primary Care Provider [phone] Allergies No known active allergies Medications PIRMELLA [...] Active Problems Problem Noted Date Diagnosed Date Poor growth affecting management of mother in third trimester 01/03/2025 Monochorionic diamniotic twin gestation in secon d trimester 11/15/2024 uterine contractions 11/07/2024 Trigeminal neuralgia 04/11/2022 Estimated Date of Delivery Comme nts Yes 03/15/2025 Based on last me nstrual period of 06/08/2024 Encounters Date Type Department Care Team Description 01/04/2025 Documentation Maternal- Medicine at [facility] [address] [place] [address] Rima Echevarria, MAURICE-DORIS 01/04/2025 Travel 01/03/2025 Telephone [facility] Obstetrics/Gynecol ogy [address] [facility] [facility] [address] [place] [address] Herlinda Moreira 12/29/2024 1:00 PM EDT Office Visit Maternal- Medicine at [facility] [address] [place] [address] Alex Subramanian MD 29 weeks gestation of (Primary Dx); Monochorionic diamniotic twin gestation in third trimester; Poor growth affecting management of mother in third trimester, fetus 1 of multiple gestation 12/29/2024 10:47 AM EDT - 12/29/2024 11:59 PM EDT Hospital Encounter [facility] US Imaging [address] [place] [phone] Intrauterine growth restriction affecting antepartum care of mother in second trimester, fetus 1 of multiple gestation; Intrauterine growth restriction affecting antepartum care of mother in second trimester, fetus 2 of multiple gestation; Monochorionic diamniotic twin gestation in second trimester Discharge Disposition: Home 12/29/2024 Orders Only Maternal- Medicine at [facility] [address] [place] [address] Tressa Das RN Intrauterine growth restriction affecting antepartum care of mother in second trimester, fetus 1 of multiple gestation (Primary Dx); Monochorionic diamniotic twin gestation in second trimester; Velamentous insertion of umbilical cord in third trimester 12/29/2024 Orders Only Maternal- Medicine at [facility] [address] [place] [address] Tressa Das RN Intrauterine growth restriction affecting antepartum care of mother in second trimester, fetus 1 of multiple gestation (Primary Dx); Monochorionic diamniotic twin gestation in second trimester; Velamentous insertion of umbilical cord in third trimester 12/27/2024 Travel 12/20/2024 2:54 PM EDT - 12/20/2024 11:59 PM EDT Hospital Encounter [facility] - [facility] US Imaging [address] [place] [address] Intrauterine growth restriction affecting antepartum care of mother in second trimester, fetus 1 of multiple gestation; Intrauterine growth restriction affecting antepartum care of mother in second trimester, fetus 2 of multiple gestation; Monochorionic diamniotic twin gestation in second trimester Discharge Disposition: Home 12/18/2024 Travel 12/13/2024 3:15 PM EDT - 12/13/2024 11:59 PM EDT Hospital Encounter [facility] - [facility] US Imaging [address] [place] [address] Intrauterine growth restriction affecting antepartum care of mother in second trimester, fetus 1 of multiple gestation; Intrauterine growth restriction affecting antepartum care of mother in second trimester, fetus 2 of multiple gestation; Monochorionic diamniotic twin gestation in second trimester Discharge Disposition: Home 12/11/2024 Travel 12/08/2024 Orders Only Maternal- Medicine at [facility] [address] [place] [address] Geeta Jacobs RN Intrauterine growth restriction affecting antepartum care of mother in second trimester, fetus 1 of multiple gestation (Primary Dx); Intrauterine growth restriction affecting antepartum care of mother in second trimester, fetus 2 of multiple gestation; Monochorionic diamniotic twin gestation in second trimester 12/07/2024 Telephone Maternal- Medicine at [facility] [address] [place] [address] Susan Beltran LPN 12/06/2024 9:45 AM EDT Office Visit Maternal- Medicine at [facility] [address] [place] [address] Blaise Tse MD Intrauterine growth restriction affecting [...] - 12/06/2024 11:59 PM EDT Hospital Encounter [facility] - [facility] US Imaging [address] [place] [address] Vasa previa, fetus 1 of multiple gestation; Intrauterine growth restriction affecting antepartum care of mother in second trimester, fetus 1; Monochorionic diamniotic twin gestation in second trimester Discharge Disposition: Home 12/06/2024 Orders Only Maternal- Medicine at [facility] [address] [place] [address] Ref Prov, Not In System 12/04/2024 Travel 12/01/2024 Orders Only Maternal- Medicine at [facility] [address] [place] [address] Arleth Jefferson, JAILER CHIEF Vasa previa, fetus 1 of multiple gestation (Primary Dx); Intrauterine growth restriction affecting antepartum care of mother in second trimester, fetus 1; Monochorionic diamniotic twin gestation in second trimester 11/29/2024 2:56 PM EDT - 11/29/2024 11:59 PM EDT Hospital Encounter [facility] US Imaging [address] [place] [address] Monochorionic diamniotic twin , antepartum; IUGR (intrauterine growth restriction) affecting care of mother, second trimester, not applicable or unspecified fetus Discharge Disposition: Home 11/27/2024 Travel 11/23/2024 Orders Only Maternal- Medicine at [facility] [address] [place] [address] Susan Beltran LPN Monochorionic diamniotic twin gestation in second trimester; Intrauterine growth restriction affecting antepartum care of mother in second trimester, fetus 1; Velamentous insertion of umbilical cord in second trimester; Vasa previa, fetus 1 of multiple gestation; Palpitations 11/23/2024 Orders Only Maternal- Medicine at [facility] [address] [place] [address] Susan Beltran LPN Monochorionic diamniotic twin gestation in second trimester (Primary Dx); Intrauterine growth restriction affecting antepartum care of mother in second trimester, fetus 1; Velamentous insertion of umbilical cord in second trimester; Vasa previa, fetus 1 of multiple gestation; Palpitations 11/23/2024 Telephone Maternal- Medicine at [facility] [address] [place] [address] Susan Beltran LPN 11/22/2024 7:59 AM EDT - 11/22/2024 11:59 PM EDT Hospital Encounter [facility] US Imaging [address] [place] [address] Monochorionic diamniotic twin gestation in second trimester Discharge Disposition: Home 11/20/2024 Travel 11/17/2024 Telephone Maternal- Medicine at [facility] [address] [place] [address] Jefferson Nava MD 11/15/2024 2:30 PM EDT Office Visit Maternal- Medicine at [facility] [address] [place] [address] Jefferson Nava MD Monochorionic diamniotic twin gestation in second trimester (Primary Dx) 11/15/2024 12:47 PM EDT - 11/15/2024 11:59 PM EDT Hospital Encounter [facility] US Imaging [address] [place] [address] Encounter for other screening follow-up; Monochorionic diamniotic twin gestation in second trimester Discharge Disposition: Home 11/13/2024 Travel 11/08/2024 9:42 AM EDT - 11/08/2024 11:59 PM EDT Hospital Encounter [facility] US Imaging [address] [place] [phone] Discharge Disposition: Home 11/08/2024 [facility] Women's Services [address] [place] [address] Services, [facility] 11/07/2024 9:04 AM EDT - 11/07/2024 11:59 PM EDT Hospital Encounter [facility] US Imaging [address] [place] [phone] Discharge Disposition: Home 11/07/2024 6:22 AM EDT - 11/08/2024 2:17 PM EDT Hospital Encounter [facility] - GEN 3 Antepartum [address] [facility] [place] [phone] Farshad Negro MD Discharge Disposition: Home 11/07/2024 Travel 11/04/2024 Orders Only Maternal- Medicine at [facility] [address] [facility] [place] [address] Susan Beltrna, DORA Intrauterine growth restriction affecting antepartum care of mother in second trimester, fetus 1; Velamentous insertion of umbilical cord in second trimester; Monochorionic diamniotic twin gestation in second trimester; Vasa previa, fetus 1 of multiple gestation; Palpitations 11/04/2024 Orders Only Maternal- Medicine at [facility] [address] [place] [address] Susan Beltran LPN Intrauterine growth restriction affecting antepartum care of mother in second trimester, fetus 1 (Primary Dx); Velamentous insertion of umbilical cord in second trimester; Monochorionic diamniotic twin gestation in second trimester; Vasa previa, fetus 1 of multiple gestation; Palpitations 11/04/2024 Telephone Maternal- Medicine at [facility] [address] [place] [address] Susan Beltran LPN 11/01/2024 12:49 PM EDT - 11/01/2024 11:59 PM EDT Hospital Encounter [facility] US Imaging [address] [place] [address] Monochorionic diamniotic twin gestation in second trimester Discharge Disposition: Home 11/01/2024 Travel 10/30/2024 Travel 10/26/2024 11:30 AM EDT Office Visit Maternal- Medicine at [facility] [address] [place] [address] Blaise Tse MD Intrauterine growth restriction affecting antepartum care of mother in second trimester, fetus 1 (Primary Dx); 20 weeks gestation of ; Velamentous insertion of umbilical cord in second trimester; Monochorionic diamniotic twin gestation in second trimester; Vasa previa, fetus 1 of multiple gestation 10/26/2024 9:00 AM EDT - 10/26/2024 11:59 PM EDT Hospital Encounter [facility] US Imaging [address] [place] [address] Palpitations; Monochorionic diamniotic twin gestation in second trimester Discharge Disposition: Home 10/24/2024 Travel 10/13/2024 Orders Only Maternal- Medicine at [facility] [address] [place] [address] Brooklyn Campos RN Monochorionic diamniotic twin gestation in second trimester (Primary Dx) 10/11/2024 3:29 PM EDT - 10/11/2024 11:59 PM EDT Hospital Encounter [facility] US Imaging [address] [place] [address] Palpitations; Monochorionic diamniotic twin gestation in second trimester Discharge Disposition: Home 10/10/2024 Travel 10/04/2024 4:45 PM EDT - 10/04/2024 11:59 PM EDT Hospital Encounter [facility] [address] [place] [address] Palpitations Discharge Disposition: Home 10/04/2024 Travel from Last 3 Months Family History [...] pur e alcohol) [facility] Utilities Answer Date Recorded In the [...] 01/06/2025 8:45 AM EDT Appointment [facility] US Imaging [address] [place] [address] 01/10/2025 8:30 AM EDT Office Visit Maternal- Medicine at [facility] [address] [place] [address] Jefferson Nava MD [address] [place] [address] 01/12/2025 9:00 AM EDT Appointment [facility] US Imaging [address] [place] [address] 01/14/2025 10:30 AM EDT Office Visit [facility] Obstetrics/Gynecology [address] [facility] [place] [address] Morenita Euceda MD [address] [facility] [place] [address] 01/21/2025 8:00 AM EDT Appointment [facility] US Imaging [address] [place] [address] Health Maintenance Due Date Last Done Comments Depression Screening 2007 Adult BMI Follow Up Plan 08/06/2013 DTaP,Tdap and Td Vaccines (7 - Td or Tdap) 04/26/2023 04/26/2013, 08/28/2000, 12/27/1996, Additional history exists Influenza Vaccine 01/24/2025 03/09/2019, , 03/05/2017, Additional history exists Adult BMI Screening 12/29/2025 12/29/2024 Tobacco Screening 01/03/2026 01/03/2025 Pap Smear 09/24/2027 09/23/2024, 02/23/2024 Medical Devices Not on file Procedures Procedure Name Priority Date/Time Associated Diagnosis Comments US [facility] OB FOLLOW-UP, 1 FETUS Routine 12/29/2024 12:59 PM EDT Intrauterine growth restriction affecting antepartum care of mother in second trimester, fetus 1 of multiple gestation Intrauterine growth restriction affecting antepartum care of mother in second trimester, fetus 2 of multiple gestation Monochorionic diamniotic twin gestation in second trimester US [facility] LMTD OB, 1 OR MORE FETUS Routine 12/20/2024 3:58 PM EDT Intrauterine growth restriction affecting antepartum care of mother in second trimester, fetus 1 of multiple gestation Intrauterine growth restriction affecting antepartum care of mother in second trimester, fetus 2 of multiple gestation Monochorionic diamniotic twin gestation in second trimester US [facility] LMTD OB, 1 OR MORE FETUS [...] trimester, not applicable or unspecified fetus US M LMTD OB, 1 OR MORE [...] CULTURE STAT 11/07/2024 7:39 AM EDT US [facility] LMTD OB, 1 OR MORE FETUS Routine 11/01/2024 2:40 PM EDT Monochorionic diamniotic twin gestation in second trimester US [facility] COMPREHENSIVE ANATOMIC SURVEY Routine 10/26/2024 12:47 [...] Last 3 Months Results * US MFM OB FOLLOW-UP, 1 FETUS (12/29/2024 12:59 PM EDT) Only the most recent of12 resultswithin the time period is included. Anatomical Region Laterality Modality OB-DICTAPHONE TRANSCRIBER Ultrasound 12/29/2024 11:3 5 AM EDT Narrative 12/30/2024 5:18 PM EDT NAME: ALIVIA HARTMAN : 1995 SEX: F Accession Number: [id number] ORDERING PHYSICIAN: BLAISE TSE REFERRING PHYSICIAN: VIC MCKEON Coding ----- --------- Procedures 74452: Follow-up Ultrasound, per fetus. 2 22488: Doppler velocimetry, ; umbilical artery. 2 71809: Doppler velocimetry, ; middle cerebral artery. 2 62345: Doppler Ductus Venosus. 2 Indication ----- --------- [place]-Di twin , IUGR-Poor growth ( Twin A) History ----- --------- OB History 1. Para 0 [id number] Maternal Assessment ----- --------- Physical Exam Height [...] EFW (oz) 3 oz EFW by: Hadlock (PUL-OE-PB-FL) Extended Tibia 44.9 mm 27w 4d 8% Tamica Winder Fixer 2.8 mm Head / Face / Neck [...] EFW (oz) 10 oz EFW by: Hadlock (SYM-BM-UA-FL) Extended Tibia 45.9 mm 28w 0d 16% Tamica Winder Fixer 3.9 mm CM 4.6 mm 3% Nicolaides [...] HARTMAN : 1995 SEX: F Accession Number: [id number] ORDERING PHYSICIAN: BLAISE TSE REFERRING PHYSICIAN: VIC MCKEON Coding ----- --------- Procedures [id number]: Follow-up Ultrasound, per fetus. 2 34582: Doppler velocimetry, ; umbilical artery. 2 77684: Doppler velocimetry, ; middle cerebral artery. 2 17225: Doppler Ductus Venosus. 2 Indication ----- --------- [place]-Di twin , IUGR-Poor growth ( Twin A) History ----- --------- OB History 1. Para 0 [id number] Maternal Assessment ----- --------- Physical Exam Height [...] EFW (oz) 3 oz EFW by: Hadlock (SEG-UI-UN-FL) Extended Tibia 44.9 mm 27w 4d 8% Tamica Winder Fixer 2.8 mm Head / Face / Neck [...] EFW (oz) 10 oz EFW by: Hadlock (CKT-WM-ZH-FL) Extended Tibia 45.9 mm 28w 0d 16% Tamica Winder Fixer 3.9 mm CM 4.6 mm 3% Nicolaides [...] thepatient as necessary. us Blaise Tse MD IMG US ORDERABLES Final Result * Free Cell DNA (Non-[facility] Send Out) (11/13/2024 11:51 AM EDT) us Not In System Ref Prov LAB BLOOD ORDERABLES Inga l Result Performing Organization Address City/[facility]/ZIP Co de Phone Number MANUALLY TRANSCRIBED RESULTS * Unlisted Lab Test (11/12/2024) Only the most recent of2 resultswithin the time period is included. Free Cell Dna LOW RISK MANUALLY TRANSCRIBED RESULTS Blood (Arm) 11/12/2024 us Blaise Tse MD LAB BLOOD ORDERABLES Final Resul t Performing Organization Address City/[facility] Co de Phone Number MANUALLY TRANSCRIBED RESULTS * ABO Rh Repeat (11/07/2024 12:05 PM EDT) Only the most recent of2 resultswithin the time period is included. 11/07/2024 12:0 5 PM EDT us Melody Estes MD BLOOD BANK TEST ORDERABLES F inal Result Performing Organization Address City/[facility] Co de Phone Number [employer]QUEST * SST TOP (11/07/2024 10:18 AM EDT) Extra Tube Auto Resulted 11/07/2024 12:01 PM EDT [facility] Blood Venous blood / Unknown 11/07/2024 10:18 AM EDT 11/07/2024 10:18 AM EDT us Farshad Negro MD LAB BLOOD ORDERABLES Final Res ult Performing Organization Address City/[facility]/ZIP Co de Phone Number [facility] [address] [place] [address], [place] [phone] * (ABNORMAL) CBC auto differential (11/07/2024 10:03 AM EDT) WBC 9.6 4 - 11 x10E9/L 11/07/2024 10:34 AM EDT [facility] RBC Count 3.85 3.8 - 5.2 X10E12/L 11/07/2024 10:34 AM EDT [facility] Hemoglobin 11.3(L) 11.7 - 15.5 g/dL 11/07/2024 10:34 AM EDT [facility] Hematocrit 33.3(L) 35 - 47 % 11/07/2024 10:34 AM EDT [facility] MCV 86 80 - 100 fL 11/07/2024 10:34 AM EDT [facility] MCH 29.2 27 - 34 pg 11/07/2024 10:34 AM EDT [facility] MCHC 33.9 32 - 36 g/dL 11/07/2024 10:34 AM EDT [facility] RDW 13.8 11.5 - 15 % 11/07/2024 10:34 AM EDT [facility] Platelet Count 253 150 - 450 X10E9/L 11/07/2024 10:34 AM EDT [facility] MPV 7.4 7 - 12 fL 11/07/2024 10:34 AM EDT [facility] Neutrophils % 84.5 % 11/07/2024 10:34 AM EDT [facility] Lymphocytes % 9.8 % 11/07/2024 10:34 AM EDT [facility] Monocytes % 5.5 % 11/07/2024 10:34 AM EDT [facility] Eosinophils % 0.1 % 11/07/2024 10:34 AM EDT [facility] Basophils % 0.1 % 11/07/2024 10:34 AM EDT [facility] Neutrophils Absolute (A) 8.1(H) 1.5 - 6.6 10*3/uL 11/07/2024 10:34 AM EDT [facility] Lymphocytes Absolute 0.9(L) 1.0 - 3.5 10*3/uL 11/07/2024 10:34 AM EDT [facility] Monocytes Absolute 0.5 0.0 - 0.9 10*3/uL 11/07/2024 10:34 AM EDT [facility] Eosinophils Absolute 0.0 0.0 - 0.4 10*3/uL 11/07/2024 10:34 AM EDT [facility] Basophils Absolute 0.0 0.0 - 0.2 10*3/uL 11/07/2024 10:34 AM EDT [facility] Differential Type AUTOMATED DIFFERENTIAL 11/07/2024 10:34 AM EDT [facility] Blood Venous blood / Unknown Venipuncture / Unknown 11/07/2024 10:03 AM EDT 11/07/2024 10:03 AM EDT us Melody Estes MD LAB BLOOD ORDERABLES Final R esult [facility] [address] [place] [address], [place] [phone] * Type and screen(includes indirect pedro) (11/07/2024 10:03 AM EDT) ABO A 11/07/2024 10:48 AM EDT [facility] RH Positive 11/07/2024 10:48 AM EDT [facility] Antibody Screen Negative 11/07/2024 10:48 AM EDT [facility] Blood Venous blood / Unknown Venipuncture / Unknown 11/07/2024 10:03 AM EDT 11/07/2024 10:03 AM EDT us Melody Estes MD BLOOD BANK TEST ORDERABLES E dited Result - Final [facility] [address] [place] [address], [facility] [address] [place] [address], * Chlamydia/GC by PCR Claritza Swab (11/07/2024 8:50 AM EDT) CHLAMYDIA DNA(PCR) Negative Negative 11/08/2024 11:15 AM EDT [facility] Comment:Chlamydia trachomati s not detected by nucleic acid amplification. This does not exclude the possibility of infection because results are dependent on adequate specimen collection. GONORRHOEAE DNA(PCR) Negative Negative 11/08/2024 11:15 AM EDT [facility] Comment:Neisseria gonorrhoea e not detected by nucleic acid amplification. This does not exclude the possibility of infection because results are dependent on adequate specimen collection. Swab Vaginal structure / Unknown 11/07/2024 8:50 AM EDT 11/07/2024 9:12 AM EDT Lisa Lopez ORTHOPHOTO TECH/[facility] MICRO[facility] - [facility]ENE [facility] ORDERABLES Final Result [facility] [address] [place] [address], * Vaginitis Panel PCR (11/07/2024 8:50 AM EDT) [facility] BACT. VAGINOSIS DNA Not Detected Not Detected 11/07/2024 3:09 PM EDT [facility] Comment:Qualitative results are reported based on detection and quantitation of targeted organism markers which include: Lactobacillus spp. (L. crispatus and L. jensenii), Gardnerella vaginalis, Atopobium vaginae, Bacterial Vaginosis Associated Bacteria-2 (BVAB-2) and Megasphaera-1. KENYA SPECIES DNA Not Detected Not Detected 11/07/2024 3:09 PM EDT [facility] Comment:[place] species not detected include: C. albicans, C. tropicalis, C. parapsilosis or C. dubliniensis. KENYA KRUSEI DNA Not Detected Not Detected 11/07/2024 3:09 PM EDT [facility] Comment:No [place] krusei de tected. KENYA GLABRATA DNA Not Detected Not Detected 11/07/2024 3:09 PM EDT [facility] Comment:No [place] glabrata detected. TRICHOMONAS VAG DNA Not Detected Not Detected 11/07/2024 3:09 PM EDT [facility] Comment: No Trichomonas vaginalis detected. BD MAX Vaginal Panel has not been evaluated for patients under 18 years old. Results for these patients should be reviewed and assessed in accordance with clinical presentation to determine patient diagnosis. Swab Vaginal structure / Unknown 11/07/2024 8:50 AM EDT 11/07/2024 9:12 AM EDT us Lisa Lopez APRN-DORIS MICROBIOLOGY - GENE RAL ORDERABLES Final Result [facility] [address] [place] [address], * Strep B screen (11/07/2024 8:50 AM EDT) CULTURE RESULTS NEGATIVE FOR GROUP B STREPTOCOCCUS BY NUCLEIC ACID AMPLIFICATION 11/08/2024 3:27 PM EDT [facility] Swab (Vagina/Rectum) 11/07/2024 8:50 AM EDT 11/07/2024 9:12 AM EDT us Lisa Lopez APRN-DORIS MICROBIOLOGY - GENE RAL ORDERABLES Final Result [facility] [address] [place] [address], [place] [phone] * Er Extra Urine (11/07/2024 7:39 AM EDT) Extra Tube Auto Resulted 11/07/2024 9:01 AM EDT [facility] Urine Urine specimen collection, clean catch / Unknown 11/07/2024 7:39 AM EDT 11/07/2024 7:51 AM EDT us Farshad Negro MD URINE ORDERABLES Final Result [facility] [address] [place] [address], * (ABNORMAL) Urinalysis (11/07/2024 7:39 AM EDT) COLOR Colorless Yellow, Colorless 11/07/2024 8:04 AM EDT [facility] TURBIDITY Hazy(A) Clear 11/07/2024 8:04 AM EDT [facility] SPECIFIC GRAVITY 1.003 1.003 - 1.035 11/07/2024 8:04 AM EDT [facility] NITRITE Negative Negative 11/07/2024 8:04 AM EDT [facility] PH,URINE 6.5 5.0 - 8.5 11/07/2024 8:04 AM EDT [facility] LEUKOCYTE ESTERASE Small(A) Negative 11/07/2024 8:04 AM EDT [facility] PROTEIN Negative Negative 11/07/2024 8:04 AM EDT [facility] KETONES (URINE) Negative Negative 8:04 AM EDT [facility] UROBILINOGEN <1.1 eu/dL <1.1 eu/dL 11/07/2024 8:04 AM EDT [facility] BILIRUBIN (URINE) Negative Negative 11/07/2024 8:04 AM EDT [facility] BLOOD/HGB Negative Negative 11/07/2024 8:04 AM EDT [facility] MUCOUS Present(A) None 11/07/2024 8:04 AM EDT [facility] R.B.CELLS 3 0 - 5 11/07/2024 8:04 AM EDT [facility] SQUAMOUS EPITHELIUM 9(H) 0 - 5 11/07/2024 8:04 AM EDT [facility] W.B.CELLS 9(H) 0 - 5 11/07/2024 8:04 AM EDT [facility] GLUCOSE (URINE) Negative Negative 8:04 AM EDT [facility] Urine 11/07/2024 7:39 AM EDT 11/07/2024 7:50 AM EDT Lisa Lopez ORTHOPHOTO TECH/DRAFTSMAN-CNM URINE ORDERABLES Fi nal Result [facility] [address] [place] [address], * Urine Culture Urine, Clean Catch Midstream (11/07/2024 7:39 AM EDT) CULTURE RESULTS NO GROWTH AT <1000 CFU/mL 11/08/2024 8:24 AM EDT [facility] Urine Urine specimen collection, clean catch / Unknown 11/07/2024 7:39 AM EDT 11/07/2024 7:50 AM EDT Lisa Lopez ORTHOPHOTO TECH/DRAFTSMAN-CNM MICROBIOLOGY - GENE RAL ORDERABLES Final Result [facility] [address] [place] [address], * CMV IgM (10/26/2024 12:37 PM EDT) CYTOMEGALOVIRUS IGM 0.2 <0.9 AI 10/26 2:54 PM EDT [facility] Blood Venous blood / Unknown Venipuncture / Unknown 10/26/2024 12:37 PM EDT 10/26/2024 12:37 PM EDT Narrative [facility] - 10/26/2024 2:54 PM EDT Intepretation < 0.9 Negative 0.9 - 1.0 Equivocal > 1.0 Positive The following results were obtained with the [facility] [address] IgM test. Results obtained from other Rehabilitation Counselor's assay methods may not be used interchangeably. us Blaise Tse MD LAB BLOOD ORDERABLES Final Resul t Performing Organization Address City/[facility] Co de Phone Number [facility] [address] [place] [address], * (ABNORMAL) Cytomegalovirus antibody, IgG (10/26/2024 12:37 PM EDT) CYTOMEGALOVIRUS IGG >8.0(H) <0.9 AI 10/26 2:54 PM EDT [facility] Blood Venous blood / Unknown Venipuncture / Unknown 10/26/2024 12:37 PM EDT 10/26/2024 12:37 PM EDT Narrative [facility] - 10/26/2024 2:54 PM EDT Intepretation < 0.9 Negative 0.9 - 1.0 Equivocal > 1.0 Positive Blaise Tse MD LAB BLOOD ORDERABLES Final Resul t Performing Organization Address City/[facility]/ZIP Co de Phone Number [facility] [address] [place] [address], * ECG 12 lead (10/04/2024 5:06 PM EDT) 10/04/2024 5:06 PM EDT Narrative [facility] - 10/06/2024 11:23 AM EDT Mya Dumont MD ECG ORDERABLES Final Result Performing Organization Address City/[facility] Co de Phone Number [facility] from Last 3 Months Insurance [employer] Advance Directives * Full Code (Latest Code Status on File) Date Activated Date Inactivated Comments 11/07/2024 9:33 AM 11/08/2024 4:22 PM Care Teams Brim Pouncer Relationship Specialty Start Date End Date Belén Rooney MD [address] [place] [phone] PCP - General Family Medicine 09/29/18
--- OUTSIDE RECORDS SUMMARY | 2025-01-04 11:06 | XMS_ITS | Encounter Summary ---
Author Organization [facility] Address [address] [place] [address] Care Team Providers Care Data Processing Systems Consultant Name Role Phone Marlon Laguna MD Primary Care Provider [phone] Saul Eugene DO Unavailable Encounter Details Date Type Department Care Team (Late st Contact Info) Description 11/24/2024 Abstract [facility] [address] [place] [phone] Saul Eugene DO [address] [place], [facility] Social History Tobacco Use Types Packs/Day [...] PALMER [address] [place] [address] Saul Eugene DO [address] [place] [address] 03/28/2025 2:00 PM EST Office Visit [facility] [place] [facility] [address] [facility] [address] Saul Eugene DO [address] [facility] [place] [address] documented as of this encounter Goals Goal Patient Goal Type Associated Problems Recent Progress Patient-Stated? Author Reminders Care Plan OB Reminders No Open Scheduling, Background documented as of this encounter Visit Diagnoses Not on filedocumented in this encounter Additional Health Concerns Active Problems Noted Date Diagnosed Date OB Reminders 08/14/2024 documented as of this encounter Care Teams Data Processing Systems Consultant Relationship Specialty Start Date End Date Marlon Laguna MD [address] [facility] [place] [address] PCP - General Family Medicine 08/29/23 Saul Eugene DO [address] [place] [address] Referring Physician Obstetrics and Gynecology 08/16/24 documented as of this encounter
--- OUTSIDE RECORDS SUMMARY | 2025-01-04 11:06 | XMS_ITS | Clinical Summary ---
Author Organization [facility] Address [address] [place] [address] Care Team Providers Care Magistrate Judge Name Role Phone Marlon Laguna MD Primary Care Provider [phone] Vic Eugene DO Unavailable Allergies No known [...] antepartum, gestational diabetes method of control unspecified ([facility]),Elevate d glucose tolerance test 1 each by In Vitro route Daily Use to check FSBS four times daily 150 each 3 5 12/25/19 25 Glucose Blood (Blood Glucose Test) stripIndications: Gestational diabetes mellitus (GDM), antepartum, gestational diabetes method of control unspecified ([facility]),Elevate d glucose tolerance test 1 strip by In Vitro route Daily Use in the morning prior to breakfast, 1 hour after each meal for a total of 4times daily. 150 strip 3 5 12/25/19 25 Encounters Date Type Department Care Team Description 01/03/20[place] [address] Vic Eugene, 12/31/2024 [place] [address] Ximena Aly MA 12/30/2024 11:30 [place] [address] Vic Eugene, 29 weeks gestation of ([facility]); Monochorionic diamniotic twin gestation in second trimester ([facility]); Gestational diabetes mellitus (GDM), antepartum, gestational diabetes method of control unspecified ([facility]); Third trimester ([facility]) 12/30/2024 [place] [address] Vic Eugene, 12/28/2024 Clinisync Result Encounter [facility] External Department [...] [facility] [place] [address] Vic Eugene, DO Second trimester ([facility]); 27 weeks gestation of ([facility]); Monochorionic diamniotic twin gestation in second trimester ([facility]) 12/14/2024 Abstract [facility] [place] [facility] [address] [facility] [address] Vic Eugene, DO 12/14/2024 Bamboo flowsheet [facility] [place] [facility] [address] [facility] [place] [address] Vic Eugene, DO 12/07/2024 Travel 12/06/2024 Abstract [facility] [place] [facility] [address] [facility] [place] [address] Vic Eugene, DO 12/01/2024 Abstract [facility] [place] [facility] [address] [facility] [place] [address] Ximena Aly MA 11/30/2024 1:00 PM EDT Routine [facility] [place] [facility] [address] [facility] [place] [address] iVc Eugene, Second trimester ([facility]); 25 weeks gestation of ([facility]); Monochorionic diamniotic twin gestation in second trimester ([facility]) 11/30/2024 Bamboo flowsheet [facility] [place] [facility] [address] [facility] [place] [address] Vic Eugene, DO 11/24/2024 Abstract [facility] [place] [facility] [address] [facility] [place] [address] Vic Eugene, DO 11/24/2024 Telephone [facility] [place] [facility] [address] [facility] [place] [address] Vic Eugene, DO 11/24/2024 Clinisync Result Encounter [facility] External Department Unsolicited Vic Eugene, DO 11/23/2024 Travel 11/22/2024 Abstract [facility] [place] [facility] [address] [facility] [place] [address] Vic Eugene, DO 11/22/2024 Abstract [facility] [place] [facility] [address] [facility] [place] [address] Vic Eugene, DO 11/16/2024 2:20 PM EDT Routine [facility] [place] [facility] [address] [facility] [place] [address] Vic Eugene, DO Second trimester ([facility]); 23 weeks gestation of ([facility]); Diabetes mellitus screening; Monochorionic diamniotic twin gestation in second trimester ([facility]) 11/16/2024 Bamboo flowsheet [facility] [place] [facility] [address] [facility] [place] [address] Vic Eugene, DO 11/09/2024 Travel 11/02/2024 Abstract [facility] [place] [facility] [address] [facility] [place] [address] Ximena Aly MA 10/27/2024 Abstract [facility] [facility] [address] [facility] [place] [address] Vic Eugene, DO 10/20/2024 3:50 PM EDT Routine [facility] [place] [facility] [address] [facility] [place] [address] Vic Eugene, DO 19 weeks gestation of ([facility]); Second trimester ([facility]) 10/20/2024 Bamboo flowsheet [facility] [place] [facility] [address] [place] [address] Vic Eugene, 10/13/2024 Travel 10/12/2024 Abstract [facility] [place] [facility] [address] [place] [address] Vic Eugene, 10/11/2024 Abstract [facility] [place] [facility] [address] [place] [address] Vic Eugene DO from Last 3 Months [...] 12.8 oz) 025 11:29 AM EDT Height 157.5 cm (5' 2 ) 02/10/2023 11:3 9 AM EDT Body Mass Index 28.31 02/10/2023 11:39 AM EDT Plan of Treatment Upcoming Encounters Date Type Department Care Team (Late st Contact Info) Description 01/18/2025 9:30 AM EDT Routine [facility] [address] [facility] [place] [address] Vic Eugene, DO [address] [place] [address] 03/28/2025 2:00 PM EST Office Visit [facility] [address] [facility] [place] [address] Vic Eugene, DO [address] [place] [address] Goals Goal Patient Goal Type Associated Problems Recent Progress Patient-Stated? Author Reminders Care Plan OB Reminders No Open Scheduling, Background Procedures Procedure Name Priority Date/Time Associated Diagnosis Comments POCT URINALYSIS DIPSTICK Routine 12/30/2024 11:36 AM EDT 29 weeks gestation of ([facility]) Monochorionic diamniotic twin gestation in second trimester ([facility]) Gestational diabetes mellitus (GDM), antepartum, gestational diabetes method of control unspecified ([facility]) Third trimester ([facility]) US OB BPP W NON-STRESS 12/28/2024 3:38 PM EDT US OB BPP W NON-STRESS 12/28/2024 3:38 PM EDT US OB BPP W NON-STRESS 12/24/2024 2:02 PM EDT US OB BPP W NON-STRESS 12/21/2024 3:00 PM EDT US OB BPP W NON-STRESS 12/21/2024 3:00 PM EDT POCT URINALYSIS DIPSTICK Routine 12/14/2024 2:03 PM EDT Second trimester ([facility]) GLUCOSE 1 HOUR Routine 11/24/2024 1:13 PM EDT ALL CBC WITH AUTO DIFF Routine 11/24/2024 1:13 PM EDT POCT URINALYSIS DIPSTICK Routine 10/20/2024 4:19 PM EDT 19 weeks gestation of ([facility]) Second trimester ([facility]) from Last 3 Months Results * POCT urinalysis dipstick manually resulted (12/30/2024 11:36 AM EDT) Only the most recent of3 resultswithin [...] Positive Urine 12/30/2024 11:3 6 AM EDT us Vic Maloneo DO POINT OF CARE TEST ENTER/EDIT OR DERABLES Final Result * US OB BPP W NON-STRESS (12/28/2024 3:38 PM EDT) Only the most recent of5 resultswithin the time period is included. Anatomical Region Laterality Modality Other 12/28/2024 3:38 PM EDT Narrative 12/28/2024 3:41 PM EDT The [address] [address] Ultrasound Report Signed Patient: MINNIE BUNCH MR#: [id number] : 1995 Acct:[id number] Age/Sex: 29 / F ADM Date: 12/28/24 Loc: US Attending Dr: Vic Eugene D.O. Ordering Physician: Vic Eugene D.O. Date of Service: 12/28/24 Procedure(s): US OB BPP w non-stress Accession Number(s): [id number] cc: Vic Eugene D.O.; Marlon Laguna M.D. [address] [address] Patient Name: MINNIE BUNCH MRN: [id number] date: 1995 Sex: F Assigned Patient Location: [facility] Current Patient Location: Accession/Order Number: [id number] Exam Date: 12/28/2024 15:37 Report Date: 12/28/2024 15:38 At the request of: VIC EUGENE DO Procedure: US OB BPP w non-stress Biophysical profile. Reason for exam: Twin COMPARISON: 12/24/2024 TECHNIQUE: The wet trimmer reports a fetus A BPP of 8 out of 8. MVP is 4.8 cm. heart rate 141 bpm. The wet trimmer reports fetus B BPP of 8 out of 8. MVP is 5.7 cm. heart rate 150 bpm. US/US OB BPP w non-stress IMPRESSION: BPP 8out of 8 for Fetus A. BPP 8 out of 8 for fetus B. Impression dictated by: Barrington Spears Jr., D.O. 12/28/2024 3:38 PM Dictation Location: [place] [address] Electronically authenticated by: [id number] Y Date: 12/28/2024 15:38 Dictated By: Barrington Spears M.D. Signed By: 12/28/24 1541 DD/ 1538 TD/TT: Gis Web Developer: Procedure Note Radiology, Radiologist, - 12/28/2024 [place] [address] Ultrasound Report Signed Patient: MINNIE BUNCH AMR#: [id number] : 1995Acct:[id number] Age/Sex: 29 / FADM Date: 12/28/24 Loc: US Attending Dr: Vic Eugene D.O. Ordering Physician: Vic Eugene D.O. Date of Service: 12/28/24 Procedure(s): US OB BPP w non-stress Accession Number(s): [id number] cc: Vic Eugene D.O.; Marlon Laguna M.D. The [place] [address] Patient Name: MINNIE BUNCH MRN: [id number] date: 1995 Sex: F Assigned Patient Location: [facility] Current Patient Location: Accession/Order Number: [id number] Exam Date: 12/28/2024 15:37 Report Date: 12/28/2024 15:38 At the request of: VIC EUGENE DO Procedure: US OB BPP w non-stress Biophysical profile. Reason for exam: Twin COMPARISON: 12/24/2024 TECHNIQUE: The wet trimmer reports a fetus A BPP of 8 out of 8. MVP is4.8 cm. heart rate 141 bpm. The wet trimmer reports fetus B BPP of 8 out of 8. MVP is 5.7 cm. heart rate 150 bpm. US/US OB BPP w non-stress IMPRESSION: BPP 8out of 8 for Fetus A. BPP 8 out of 8 for fetus B. Impression dictated by: Barrington Spears Jr., D.O. 12/28/2024 3:38 PM Dictation Location: [place] [address] Electronically authenticated by: [id number] Y Date: 5:38 Dictated By: Barrington Spears M.D. Signed By:12/28/24 1541 DD/ 1538 TD/TT: Gis Web Developer: us Vic Valorie DO [facility] Final Result * (ABNORMAL) GLUCOSE 1 HOUR (11/24/2024 1:13 PM EDT) Pathologist [facility] GLUCOSE 1 HOUR 165(H) <130 mg/dL [facility] 11/24/2024 1:13 PM EDT 11/24/2024 1:34 PM EDT Narrative [facility] - 11/24/2024 1:58 PM EDT Vic Valorie DO LAB BLOOD ORDERABLES Final Resul t [facility] * (ABNORMAL) ALL CBC WITH AUTO DIFF (11/24/2024 1:13 PM EDT) Pathologist [facility] TB WBC 10.0 4.0 - 11.0 10 3/uL [facility] TB RBC 3.67(L) 4.20 - 5.40 10 6/uL [facility] HGB 10.8(L) 12.0 - 16.0 g/dL TB TB HCT 32.1(L) 36.0 - 48.0 % [facility] TB MCV 87.5 81.0 - 99.0 fL TBH TB[facility] MCH 29.4 26.7 - 34.0 pg TBH TBH MCHC 33.6 29.9 - 35.2 g/dL TB [...] Narrative [facility] - 11/24/2024 1:39 PM EDT Vic Eugene DO [facility] Final Result [facility] from Last 3 Months Additional Health Concerns Active Problems Noted Date Diagnosed Date OB Reminders 08/14/2024 Insurance [employer] Care Teams Magistrate Judge Relationship Specialty Start Date End Date Marlon Laguna MD [address] [place] [phone] PCP - General Family Medicine 08/29/23 Vic Eugene DO [address] [place] [address] [place] [address] Referring Physician Obstetrics and Gynecology 08/16/24
--- OUTSIDE RECORDS SUMMARY | 2025-01-04 11:06 | XMS_ITS | Encounter Summary ---
Author Organization [facility] Address [address] [place] [address] Care Team Providers Care Package Car Driver Name Role Phone Marlon Laguna MD Primary Care Provider [phone] Saul Eugene DO Unavailable Encounter Details Date Type Department Care Team (Late Contact Info) Description 10/01/2024 Orders Only [facility] [place] [facility] [address] [place] [address] Ximena Aly MA Social History Tobacco [...] Department Care Team (Late Contact Info) Description 01/18/2025 9:30 AM EDT Routine [facility] [place] [facility] [address] [place] [address] Saul Eugene DO [address] [place] [address] 03/28/2025 2:00 PM EST Office Visit [facility] [place] [facility] [address] [place] [phone] Saul Eugene DO [address] [place] [address] documented as of this encounter Goals Goal [...] documented as of this encounter Care Teams Package Car Driver Relationship Specialty Start Date End Date Marlon Laguna MD [address] [facility] [place] [address] PCP - General Family Medicine 08/29/23 Saul Eugene DO [address] [place] [address] Referring Physician Obstetrics and Gynecology 08/16/24 documented as of this encounter
--- OUTSIDE RECORDS SUMMARY | 2025-01-04 11:06 | XMS_ITS | Encounter Summary ---
Author Organization [facility] Address [address] [place] [address] Care Team Providers Care Pole Frame Construction Worker Name Role Phone Marlon Laguna MD Primary Care Provider [phone] Vic Eugene DO Unavailable Encounter Details Date Type Department Care Team (Late st Contact Info) Description 12/28/2024 Clinisync Result Encounter [facility] External Department Unsolicited Vic Eugene, [address] [place] [place], [place] [phone] Social History Tobacco Use Types Packs/Day Years [...] AM EDT Routine [facility] [place] [facility] [address] [place] [address] Vic Eugene, DO [address] [facility] [place] [address] 03/28/2025 2:00 PM EST Office Visit [facility] [place] [facility] [address] [facility] [place] [address] Vic Eugene, DO [address] [facility] [place] [address] documented as of this encounter Goals Goal [...] EDT Narrative 12/28/2024 3:41 PM EDT The [address] [address] Ultrasound Report Signed Patient: MINNIE BUNCH MR#: [id number] : 1995 Acct:[id number] Age/Sex: 29 / F ADM Date: 12/28/24 Loc: US Attending Dr: Vic Eugene D.O. Ordering Physician: Vic Eugene D.O. Date of Service: 12/28/24 Procedure(s): US OB BPP w non-stress Accession Number(s): [id number] cc: Vic Eugene D.O.; Marlon Laguna M.D. The [address] [address] Patient Name: MINNIE BUNCH MRN: [id number] date: 1995 Sex: F Assigned Patient Location: [facility] Current Patient Location: Accession/Order Number: [id number] Exam Date: 12/28/2024 15:37 Report Date: 12/28/2024 15:38 At the request of: VIC EUGENE DO Procedure: US OB BPP w non-stress Biophysical profile. Reason for exam: Twin COMPARISON: 12/24/2024 TECHNIQUE: The nurse instructor reports a fetus A BPP of 8 out of 8. MVP is 4.8 cm. heart rate 141 bpm. The nurse instructor reports fetus B BPP of 8 out of 8. MVP is 5.7 cm. heart rate 150 bpm. US/US OB BPP w non-stress IMPRESSION: BPP 8out of 8 for Fetus A. BPP 8 out of 8 for fetus B. Impression dictated by: Barrington Spears Jr., D.O. 12/28/2024 3:38 PM Dictation Location: [place] [address] Electronically authenticated by: [id number] Y Date: 12/28/2024 15:38 Dictated By: Barrington Spears M.D. Signed By: 12/28/24 1541 DD/ 1538 TD/TT: Bread Dumper: Procedure Note Radiology, Radiologist, - 12/28/2024 [place] [address] Ultrasound Report Signed Patient: MINNIE BUNCH AMR#: [id number] : 1995Acct:[id number] Age/Sex: 29 / FADM Date: 12/28/24 Loc: US Attending Dr: Vic Eugene D.O. Ordering Physician: Vic Eugene D.O. Date of Service: 12/28/24 Procedure(s): US OB BPP w non-stress Accession Number(s): [id number] cc: Vic Eugene D.O.; Marlon Laguna M.D. The [place] [address] Patient Name: MINNIE BUNCH MRN: [facility]:[id number] date: 1995 Sex: F Assigned Patient Location: [facility] Current Patient Location: Accession/Order Number: [id number] Exam Date: 12/28/2024 15:37 Report Date: 12/28/2024 15:38 At the request of: VIC EUGENE DO Procedure: US OB BPP w non-stress Biophysical profile. Reason for exam: Twin COMPARISON: 12/24/2024 TECHNIQUE: The nurse instructor reports a fetus A BPP of 8 out of 8. MVP is4.8 cm. heart rate 141 bpm. The nurse instructor reports fetus B BPP of 8 out of 8. MVP is 5.7 cm. heart rate 150 bpm. US/US OB BPP w non-stress IMPRESSION: BPP 8out of 8 for Fetus A. BPP 8 out of 8 for fetus B. Impression dictated by: Barrington Spears Jr., D.O. 12/28/2024 3:38 PM Dictation Location: [place] [address] Electronically authenticated by: [id number] Y Date: 5:38 Dictated By: Barrington Spears M.D. Signed By:12/28/24 1541 DD/ 1538 TD/TT: Bread Dumper: Vic Eugene DO [facility] Final Result documented in this encounter Visit Diagnoses Not on filedocumented in this encounter Additional Health Concerns Active Problems Noted Date Diagnosed Date OB Reminders 08/14/2024 documented as of this encounter Care Teams Pole Frame Construction Worker Relationship Specialty Start Date End Date Marlon Laguna MD [address] [place] [address] PCP - General Family Medicine 08/29/23 Vic Eugene DO [address] [place] [address] [place] [address] Referring Physician Obstetrics and Gynecology 08/16/24 documented as of this encounter
--- OUTSIDE RECORDS SUMMARY | 2025-01-04 11:06 | XMS_ITS | Encounter Summary ---
Author Organization [facility] Address [address] [place] [address] Care Team Providers Care Skip Miner Blasting Name Role Phone Marlon Laguna MD Primary Care Provider [phone] Vic Eugene DO Unavailable Encounter Details Date Type Department Care Team (Late st Contact Info) Description 12/21/2024 Clinisync Result Encounter [facility] External Department Unsolicited Vic Eugene, [address] [place], [place] [phone] Social History Tobacco Use Types Packs/Day Years [...] AM EDT Routine [facility] [place] [facility] [address] [place] [address] Vic Eugene, DO [address] [facility] [place] [address] 03/28/2025 2:00 PM EST Office Visit [facility] [place] [facility] [address] [facility] [place] [phone] Vic Eugene, DO [address] [facility] [place] [address] documented as of this encounter Goals Goal [...] EDT Narrative 12/21/2024 3:02 PM EDT The [address] [address] Ultrasound Report Signed Patient: MINNIE BUNCH MR#: [id number] : 1995 Acct:[id number] Age/Sex: 29 / F ADM Date: 12/21/24 Loc: US Attending Dr: Vic Eugene D.O. Ordering Physician: Vic Eugene D.O. Date of Service: 12/21/24 Procedure(s): US OB BPP w non-stress Accession Number(s): [id number] cc: Vic Eugene D.O.; Marlon Laguna M.D. The [address] [address] Patient Name: MINNIE BUNCH MRN: [id number] date: 1995 Sex: F Assigned Patient Location: US Current Patient Location: Accession/Order Number: [id number] Exam Date: 12/21/2024 14:56 Report Date: 12/21/2024 15:00 At the request of: VIC EUGENE DO Procedure: US OB BPP w non-stress Biophysical profile. Reason for exam: No chorionic diamniotic twin gestation. COMPARISON: None TECHNIQUE: Transabdominal imaging of the gravid uterus was obtained. FINDINGS: The aws architect reports a fetus A BPP of 6 out of 8 with 0 points for breathing.. MVP is 6.3 cm. heart rate 135 bpm. The aws architect reports fetus B BPP of 8 out of 8. MVP is 3.7 cm. heart rate 139 bpm. US/US OB BPP w non-stress IMPRESSION: BPP 6out of 8 for Fetus A. Correlation with NST is recommended. BPP 8 out of 8 for fetus B. Impression dictated by: Barrington Spears Jr., D.O. 12/21/2024 3:00 PM Dictation Location: [place] [address] Electronically authenticated by: [id number] Y Date: 12/21/2024 15:00 Dictated By: Barrington Spears M.D. Signed By: 12/21/24 1502 DD/ 1500 TD/TT: Marketing Lead: Procedure Note Radiology, Radiologist, MD - 12/21/2024 [place] [address] Ultrasound Report Signed Patient: MINNIE BUNCH [facility]#: [id number] : 1995Acct:[id number] Age/Sex: Date: 12/21/24 Loc: US Attending Dr: Vic Eugene D.O. Ordering Physician: Vic Eugene D.O. Date of Service: 12/21/24 Procedure(s): US OB BPP w non-stress Accession Number(s): [id number] cc: Vic Eugene D.O.; Marlon Laguna M.D. The [place] [id number] Patient Name: MINNIE BUNCH MRN: [id number] date: 1995 Sex: F Assigned Patient Location: Current Patient Location: Accession/Order Number: [id number] Exam Date: 12/21/2024 14:56 Report Date: 12/21/2024 15:00 At the request of: VIC EUGENE DO Procedure: US OB BPP w non-stress Biophysical profile. Reason for exam: No chorionic diamniotic twin gestation. COMPARISON: None TECHNIQUE: Transabdominal imaging of the gravid uterus was obtained. FINDINGS: The aws architect reports a fetus A BPP of 6 out of 8 with 0points for breathing.. MVP is 6.3 cm. heart rate 135 bpm. The aws architect reports fetus B BPP of 8 out of 8. MVP is 3.7 cm. heart rate 139 bpm. US/US OB BPP w non-stress IMPRESSION: BPP 6out of 8 for Fetus A. Correlation with NST is recommended. BPP 8 out of 8 for fetus B. Impression dictated by: Barrington Spears Jr., D.O. 12/21/2024 3:00 PM Dictation Location: [place] [address] Electronically authenticated by: [id number] Y Date: 5:00 Dictated By: Barrington Spears M.D. Signed By:12/21/24 1502 DD/ 1500 TD/TT: Marketing Lead: Vic Eugene DO [facility] Final Result documented in this encounter Visit Diagnoses Not on filedocumented in this encounter Additional Health Concerns Active Problems Noted Date Diagnosed Date OB Reminders 08/14/2024 documented as of this encounter Care Teams Skip Miner Blasting Relationship Specialty Start Date End Date Marlon Laguna MD [address] [facility] [place] [address] PCP - General Family Medicine 08/29/23 Vic Eugene DO [address] [place] [address] [place] [address] Referring Physician Obstetrics and Gynecology 08/16/24 documented as of this encounter
--- OUTSIDE RECORDS SUMMARY | 2025-01-04 11:06 | XMS_ITS | Encounter Summary ---
Author Organization [facility] Address [address] [place] [address] Care Team Providers Care Calibration Engineer Name Role Phone Marlon Laguna MD Primary Care Provider [phone] Saul Eugene DO Unavailable Encounter Details Date Type Department Care Team (Late st Contact Info) Description 10/11/2024 Abstract [facility] [address] [place] [phone] Saul Eugene DO [address] [place], [facility] [...] Description 01/18/2025 9:30 AM EDT Routine [facility] [address] [place] [address] Saul Eugene DO [address] [place] [address] 03/28/2025 2:00 PM EST Office Visit [facility] [place] [facility] [address] [facility] [place] [address] Saul Eugene DO [address] [facility] [place] [address] documented as of this encounter Goals Goal Patient Goal Type Associated Problems Recent Progress Patient-Stated? Author Reminders Care Plan OB Reminders No Open Scheduling, Background documented as of this encounter Visit Diagnoses Not on filedocumented in this encounter Additional Health Concerns Active Problems Noted Date Diagnosed Date OB Reminders 08/14/2024 documented as of this encounter Care Teams Calibration Engineer Relationship Specialty Start Date End Date Marlon Laguna MD [address] [facility] [place] [address] PCP - General Family Medicine 08/29/23 Saul Eugene DO [address] [place] [address] Referring Physician Obstetrics and Gynecology 08/16/24 documented as of this encounter
--- OUTSIDE RECORDS SUMMARY | 2025-01-04 11:06 | XMS_ITS | Encounter Summary ---
Author Organization [facility] Address [address] [place] [address] Care Team Providers Care Lease Administration Analyst Name Role Phone Marlon Laguna MD Primary Care Provider [phone] Saul Eugene DO Unavailable Encounter Details Date Type Department Care Team (Late st Contact Info) Description 10/27/2024 Abstract [facility] [address] [place] [phone] Saul Eugene DO [address] [place], [place] [...] PALMER [address] [place] [address] Saul Eugene DO [address] [place] [address] 03/28/2025 2:00 PM EST Office Visit [facility] [place] [facility] [address] [facility] [place] [address] Saul Eugene DO [address] [facility] [place] [address] documented as of this encounter Goals Goal Patient Goal Type Associated Problems Recent Progress Patient-Stated? Author Reminders Care Plan OB Reminders No Open Scheduling, Background documented as of this encounter Visit Diagnoses Not on filedocumented in this encounter Additional Health Concerns Active Problems Noted Date Diagnosed Date OB Reminders 08/14/2024 documented as of this encounter Care Teams Lease Administration Analyst Relationship Specialty Start Date End Date Marlon Laguna MD [address] [facility] [place] [address] PCP - General Family Medicine 08/29/23 Saul Eugene DO [address] [place] [address] Referring Physician Obstetrics and Gynecology 08/16/24 documented as of this encounter
--- OUTSIDE RECORDS SUMMARY | 2025-01-04 11:06 | XMS_ITS | Encounter Summary ---
Author Organization [facility] Address [address] [place] [address] Care Team Providers Care Data Processing Equipment Repairer Name Role Phone Marlon Laguna MD Primary Care Provider [phone] Saul Eugene DO Unavailable Encounter Details Date Type Department Care Team (Late st Contact Info) Description 09/28/2024 Abstract [facility] [address] [place] [phone] Saul Eugene DO [address] [place], [facility] Social History Tobacco Use Types Packs/Day Years [...] [facility] [address] [place] [address] Saul Eugene DO [address] [place] [address] 03/28/2025 2:00 PM EST Office Visit [facility] [place] [facility] [address] [facility] [place] [address] Saul Eugene DO [address] [facility] [place] [address] documented as of this encounter Goals Goal Patient Goal Type Associated Problems Recent Progress Patient-Stated? Author Reminders Care Plan OB Reminders No Open Scheduling, Background documented as of this encounter Visit Diagnoses Not on filedocumented in this encounter Additional Health Concerns Active Problems Noted Date Diagnosed Date OB Reminders 08/14/2024 documented as of this encounter Care Teams Data Processing Equipment Repairer Relationship Specialty Start Date End Date Marlon Laguna MD [address] [facility] [place] [address] PCP - General Family Medicine 08/29/23 Saul Eugene DO [address] [place] [address] Referring Physician Obstetrics and Gynecology 08/16/24 documented as of this encounter
--- OUTSIDE RECORDS SUMMARY | 2025-01-04 11:06 | XMS_ITS | Encounter Summary ---
Author Organization [facility] Address [address] [place] [address] Care Team Providers Care Inspector And Clerk Name Role Phone Marlon Laguna MD Primary Care Provider [phone] Saul Eugene DO Unavailable Encounter Details Date Type Department Care Team (Late st Contact Info) Description 11/03/2023 Clinisync Result Encounter [facility] External Department Unsolicited Saul Eugene DO [address] [place], [place] [phone] Social History Tobacco Use Types Packs/Day Years [...] AM EDT Routine [facility] [place] [facility] [address] [facility] [place] [phone] Saul Eugene DO [address] [place] [address] 03/28/2025 2:00 PM EST Office Visit [facility] [place] [facility] [address] [place] [address] Saul Eugene DO [address] [facility] [place] [address] documented as of this encounter Procedures Procedure Name Priority Date/Time Associated Diagnosis Comments MM TOMOSYNTHESIS DIAGNOSTIC BI 11/03/2023 1:17 PM EDT documented in this encounter Results * MM TOMOSYNTHESIS DIAGNOSTIC BI (11/03/2023 1:17 PM EDT) Anatomical Region Laterality Modality Other 11/03/2023 1:17 PM EDT Narrative 11/03/2023 1:18 PM EDT The [address] [address] Mammography Report Signed Patient: MINNIE SWIFT MR#: [id number] : 1995 Acct:[id number] Age/Sex: 28 / F ADM Date: 11/03/23 Loc: MAMMO Attending Dr: Saul Eugene D.O. Ordering Physician: Saul Eugene D.O. Results: Date of Service: 11/03/23 Follow Up: Procedure(s): MM tomosynthesis diagnostic BI Accession Number(s): [id number] cc: Saul Eugene D.O.; Marlon Laguna M.D. Patient Name: MINNIE SWIFT MR#: [id number] : 1995 Exam Date: 11/03/2023 Ordering Doctor: [...] Treatments None Family Cancers None LOCATION: The [facility] BREAST COMPOSITION: There are scattered areas of fibroglandular density. FINDINGS: DIAGNOSTIC CATEGORY 1--NEGATIVE. Scattered benign-appearing lymph nodes are present. RIGHT BREAST: No significant suspicious finding. [place] marker upper outer quadrant, anterior breast corresponding [...] Signed By: 11/03/23 1318 DD/ 1317 TD/TT: Business Process Architect: Procedure Note Radiology, Radiologist, MD - 11/03/2023 [place] [address] Mammography Report Signed Patient: MINNIE SWIFT AMR#: [id number] : 1995Acct:[id number] Age/Sex: Date: 11/03/23 Loc: MAMMO Attending Dr: Saul Eugene D.O. Ordering Physician: Saul Eugene D.O.Results: Date of Service: 11/03/23Follow Up: Procedure(s): MM tomosynthesis diagnostic BI Accession Number(s): [id number] cc: Saul Eugene D.O.; Marlon Laguna M.D. Patient Name: MINNIE SWIFT MR#: [id number] : 1995 Exam Date: 11/03/2023 Ordering Doctor: [...] Treatments None Family Cancers None LOCATION: [facility] BREAST COMPOSITION: There are scattered areas of fibroglandulardensity. FINDINGS: DIAGNOSTIC CATEGORY 1--NEGATIVE. Scattered benign-appearing lymph nodes are present. RIGHT BREAST: No significant suspicious finding. [place] marker upperouter quadrant, anterior breast corresponding to [...] Fitzgerald M.D. Signed By:11/03/23 1318 DD/ TD/TT: Business Process Architect: Saul Eugene DO [facility] Final Result documented in this encounter Visit Diagnoses Not on filedocumented in this encounter Care Teams Inspector And Clerk Relationship Specialty Start Date End Date Marlon Laguna MD [address] [place] [address] PCP - General Family Medicine 08/29/23 Saul Eugene DO [address] [place] [address] [place] [address] Referring Physician Obstetrics and Gynecology 08/16/24 documented as of this encounter
--- OUTSIDE RECORDS SUMMARY | 2025-01-04 11:06 | XMS_ITS | Encounter Summary ---
Author Organization [facility] Address [address] [place] [address] Care Team Providers Care Network Specialist Name Role Phone Marlon Laguna MD Primary Care Provider [phone] Saul Eugene DO Unavailable Encounter Details Date Type Department Care Team (Late st Contact Info) Description 12/14/2024 Abstract [facility] [address] [place] [phone] Saul Eugene DO [address] [place], [facility] Social History Tobacco Use Types Packs/Day [...] [facility] [address] [place] [address] Saul Eugene DO [address] [place] [address] 03/28/2025 2:00 PM EST Office Visit [facility] [place] [facility] [address] [facility] [place] [address] Saul Eugene DO [address] [facility] [place] [address] documented as of this encounter Goals Goal Patient Goal Type Associated Problems Recent Progress Patient-Stated? Author Reminders Care Plan OB Reminders No Open Scheduling, Background documented as of this encounter Visit Diagnoses Not on filedocumented in this encounter Additional Health Concerns Active Problems Noted Date Diagnosed Date OB Reminders 08/14/2024 documented as of this encounter Care Teams Network Specialist Relationship Specialty Start Date End Date Marlon Laguna MD [address] [facility] [place] [address] PCP - General Family Medicine 08/29/23 Saul Eugene DO [address] [place] [address] Referring Physician Obstetrics and Gynecology 08/16/24 documented as of this encounter
--- OUTSIDE RECORDS SUMMARY | 2025-01-04 11:06 | XMS_ITS | Encounter Summary ---
Author Organization [facility] tem Address [facility]-[id number] [address] [place] [address] Care Team Providers Care Spinning Room Worker Name Role Phone Belén Rooney MD Primary Care Provider Encounter Details Date Type Department Care Team (Late st Contact Info) Description 11/23/2024 Orders Only Maternal- Medicine at [facility] [address] [facility] [place] [address] Susan Beltran LPN Monochorionic diamniotic twin gestation [...] oz pur e alcohol) [facility] Utilities Answer Date Recorded In the past 12 months has [employer] electric, gas, oil, or water company threatened [...] Info) Description 01/06/2025 8:45 AM EDT Appointment [facility] [address] [place] [address] 01/10/2025 8:30 AM EDT Office Visit Maternal- Medicine at [facility] [address] [place] [address] Jefferson Nava MD [address] [facility], [address] [place] [address] 01/12/2025 9:00 AM EDT Appointment [facility] Imaging [address] [place] [phone] 01/14/2025 10:30 AM EDT [facility]Gynecology [address] [place] [address] [address] [place] [address] Morenita Euceda MD [address] [facility] [address] [place] [address] 01/21/2025 8:00 AM EDT Appointment [facility] - [facility] US Imaging [address] [place] [address] documented as of this encounter [...] Palpitations documented in this encounter Care Teams Spinning Room Worker Relationship Specialty Start Date End Date Belén Rooney MD [address] [place] [address] PCP - General Family Medicine 09/29/18 documented as of this encounter
--- OUTSIDE RECORDS SUMMARY | 2025-01-04 11:06 | XMS_ITS | Encounter Summary ---
Author Organization [facility] Address [address] [place] [address] Care Team Providers Care Quality Control Specialist Name Role Phone Marlon Laguna MD Primary Care Provider [phone] Saul Eugene DO Unavailable Encounter Details Date Type Department Care Team (Late st Contact Info) Description 09/12/2023 Clinisync Result Encounter N[facility] External Department Unsolicited Saul Eugene DO [address] [place] [place], [place] [phone] Social History Tobacco Use Types Packs/Day Years [...] AM EDT Routine [facility] [place] [facility] [address] [facility] [place] [phone] Saul Eugene DO [address] [place] [address] 03/28/2025 2:00 PM EST Office Visit [facility] [place] [facility] [address] [facility] [place] [address] Saul Eugene DO [address] [facility] [place] [address] documented as of this encounter Procedures Procedure Name Priority Date/Time Associated Diagnosis Comments US BREAST LT LIMITED 09/12/2023 2:31 PM EDT documented in this encounter Results * US BREAST LT LIMITED (09/12/2023 2:31 PM EDT) Anatomical Region Laterality Modality Other 09/12/2023 2:31 PM EDT Narrative 09/12/2023 2:32 PM EDT [address] [address] Ultrasound Report Signed Patient: MINNIE SWIFT MR#: [id number] : 1995 Acct:[id number] Age/Sex: 28 / F ADM Date: 09/10/23 Loc: US Attending Dr: Saul Eugene D.O. Ordering Physician: Saul Eugene D.O. Date of Service: 09/10/23 Procedure(s): US breast LT limited Accession Number(s): [id number] cc: Saul Eugene D.O.; Marlon Laguna M.D. Patient Name: MINNIE SWIFT MR#: [id number] : 1995 Exam Date: 09/10/2023 Ordering Doctor: [...] Signed By: 09/12/23 1432 DD/ 1431 TD/TT: Appellate Conferee: Procedure Note Radiology, Radiologist, MD - 09/12/2023 [place] [address] Ultrasound Report Signed Patient: MINNIE SWIFT AMR#: [id number] : 1995Acct:[id number] Age/Sex: Date: 09/10/23 Loc: US Attending Dr: Saul Eugene D.O. Ordering Physician: Saul Eugene D.O. Date of Service: 09/10/23 Procedure(s): US breast LT limited Accession Number(s): [id number] cc: Saul Eugene D.O.; Marlon Laguna M.D. Patient Name: MINNIE SWIFT MR#: [id number] : 1995 Exam Date: 09/10/2023 Ordering Doctor: [...] M.D. Signed By:09/12/23 1432 DD/ 1431 TD/TT: Appellate Conferee: Saul Eugene DO [facility] Final Result documented in this encounter Visit Diagnoses Not on filedocumented in this encounter Care Teams Quality Control Specialist Relationship Specialty Start Date End Date Marlon Laguna MD [address] [place] [address] PCP - General Family Medicine 08/29/23 Saul Eugene DO [address] [place] [address] [place] [address] Referring Physician Obstetrics and Gynecology 08/16/24 documented as of this encounter
--- OUTSIDE RECORDS SUMMARY | 2025-01-04 11:06 | XMS_ITS | Encounter Summary ---
Author Organization [facility] Address [address] [place] [address] Care Team Providers Care Spa Associate Name Role Phone Marlon Laguna MD Primary Care Provider [phone] Saul Eugene DO Unavailable Encounter Details Date Type Department Care Team (Late st Contact Info) Description 12/31/2024 Abstract [facility] [place] [facility] [address] [place] [address] Ximena Aly MA Social History Tobacco [...] AM EDT Routine [facility] [address] [place] [address] Saul Eugene DO [address] [place] [address] 03/28/2025 2:00 PM EST Office Visit [facility] [place] [facility] [address] [place] [address] Saul Eugene DO [address] [place] [address] documented as of this encounter Goals Goal Patient Goal Type Associated Problems Recent Progress Patient-Stated? Author Reminders Care Plan OB Reminders No Open Scheduling, Background documented as of this encounter Visit Diagnoses Not on filedocumented in this encounter Additional Health Concerns Active Problems Noted Date Diagnosed Date OB Reminders 08/14/2024 documented as of this encounter Care Teams Spa Associate Relationship Specialty Start Date End Date Marlon Laguna MD [address] [facility] [place] [address] PCP - General Family Medicine 08/29/23 Saul Eugene DO [address] [place] [address] Referring Physician Obstetrics and Gynecology 08/16/24 documented as of this encounter
--- OUTSIDE RECORDS SUMMARY | 2025-01-04 11:06 | XMS_ITS | Encounter Summary ---
Author Organization [facility] Address [address] [place] [address] Care Team Providers Care Hand Tile Maker Name Role Phone Marlon Laguna MD Primary Care Provider [phone] Saul Eugene DO Unavailable Encounter Details Date [...] AM EDT Routine [facility] [place] [facility] [address] [facility] [place] [address] Saul Eugene DO [address] [place], [place] [phone] 03/28/2025 2:00 PM EST Office Visit [facility] [place] [facility] [address] [place] [address] Saul Eugene DO [address] [place] [address] documented as of this encounter Goals Goal Patient Goal Type Associated Problems Recent Progress Patient-Stated? Author Reminders Care Plan OB Reminders No Open Scheduling, Background documented as of this encounter Visit Diagnoses Not on filedocumented in this encounter Additional Health Concerns Active Problems Noted Date Diagnosed Date OB Reminders 08/14/2024 documented as of this encounter Care Teams Hand Tile Maker Relationship Specialty Start Date End Date Marlon Laguna MD [address] [facility] [place] [address] PCP - General Family Medicine 08/29/23 Saul Eugene DO [address] [place] [address] Referring Physician Obstetrics and Gynecology 08/16/24 documented as of this encounter
--- OUTSIDE RECORDS SUMMARY | 2025-01-04 11:06 | XMS_ITS | Encounter Summary ---
Author Organization [facility] Address [address] [place] [address] Care Team Providers Care Chronometer Adjuster Name Role Phone Marlon Laguna MD Primary Care Provider [phone] Saul Eugene DO Unavailable Encounter Details Date Type Department Care Team (Late st Contact Info) Description 12/30/2024 Bamboo flowsheet KOKO PALMER [address] [facility] [place] [address] Saul Eugene DO [address] [place] [address] [place], [facility] [...] AM EDT Routine [facility] [place] [facility] [address] [facility] [place] [address] Saul Eugene DO [address] [facility] [place] [address] 03/28/2025 2:00 PM EST Office Visit [facility] [place] [facility] [address] [facility] [place] [address] Saul Eugene DO [address] [facility] [place] [address] documented as of this encounter Goals Goal Patient Goal Type Associated Problems Recent Progress Patient-Stated? Author Reminders Care Plan OB Reminders No Open Scheduling, Background documented as of this encounter Visit Diagnoses Not on filedocumented in this encounter Additional Health Concerns Active Problems Noted Date Diagnosed Date OB Reminders 08/14/2024 documented as of this encounter Care Teams Chronometer Adjuster Relationship Specialty Start Date End Date Marlon Laguna MD [address] [facility] [place] [address] PCP - General Family Medicine 08/29/23 Saul Eugene DO [address] [facility] [place] [address] Referring Physician Obstetrics and Gynecology 08/16/24 documented as of this encounter
--- OUTSIDE RECORDS SUMMARY | 2025-01-04 11:06 | XMS_ITS | Encounter Summary ---
Author Organization [facility] Address [address] [place] [address] Care Team Providers Care Bird Keeper Name Role Phone Marlon Laguna MD Primary Care Provider [phone] Vic Eugene DO Unavailable Encounter Details Date Type Department Care Team (Late st Contact Info) Description 12/28/2024 Clinisync Result Encounter [facility] External Department Unsolicited Vic Eugene, [address] [facility] [address] [place], [place] [phone] Social History Tobacco Use Types Packs/Day Years [...] AM EDT Routine [facility] [place] [facility] [address] [place] [address] Vic Eugene, DO [address] [facility] [place] [address] 03/28/2025 2:00 PM EST Office Visit [facility] [place] [facility] [address] [facility] [address] Vic Eugene, DO [address] [facility] [place] [address] documented as of this encounter Goals Goal [...] EDT Narrative 12/28/2024 3:41 PM EDT The [address] [address] Ultrasound Report Signed Patient: MINNIE BUNCH MR#: [id number] : 1995 Acct:[id number] Age/Sex: 29 / F ADM Date: 12/28/24 Loc: US Attending Dr: Vic Eugene D.O. Ordering Physician: Vic Eugene D.O. Date of Service: 12/28/24 Procedure(s): US OB BPP w non-stress Accession Number(s): [id number] cc: Vic Eugene D.O.; Marlon Laguna M.D. The [address] [address] Patient Name: MINNIE BUNCH MRN: [id number] date: 1995 Sex: F Assigned Patient Location: US Current Patient Location: Accession/Order Number: [id number] Exam Date: 12/28/2024 15:37 Report Date: 12/28/2024 15:38 At the request of: VIC EUGENE DO Procedure: US OB BPP w non-stress Biophysical profile. Reason for exam: Twin COMPARISON: 12/24/2024 TECHNIQUE: The water vessel captain reports a fetus A BPP of 8 out of 8. MVP is 4.8 cm. heart rate 141 bpm. The water vessel captain reports fetus B BPP of 8 out of 8. MVP is 5.7 cm. heart rate 150 bpm. US/US OB BPP w non-stress IMPRESSION: BPP 8out of 8 for Fetus A. BPP 8 out of 8 for fetus B. Impression dictated by: Barrington Spears Jr., D.O. 12/28/2024 3:38 PM Dictation Location: [place] [address] Electronically authenticated by: [id number] Y Date: 12/28/2024 15:38 Dictated By: Barrington Spears M.D. Signed By: 12/28/24 1541 DD/ 1538 TD/TT: Business Development Consultant: Procedure Note Radiology, Radiologist, - 12/28/2024 [place] [address] Ultrasound Report Signed Patient: MINNIE BUNCH AMR#: [id number] : 1995Acct:[id number] Age/Sex: 29 / FADM Date: 12/28/24 Loc: US Attending Dr: Vic Eugene D.O. Ordering Physician: Vic Eugene D.O. Date of Service: 12/28/24 Procedure(s): US OB BPP w non-stress Accession Number(s): [id number] cc: Vic Eugene D.O.; Marlon Laguna M.D. The [place] [id number] Patient Name: MINNIE BUNCH MRN: [facility]:[id number] date: 1995 Sex: F Assigned Patient Location: Current Patient Location: Accession/Order Number: [id number] Exam Date: 12/28/2024 15:37 Report Date: 12/28/2024 15:38 At the request of: VIC EUGENE DO Procedure: US OB BPP w non-stress Biophysical profile. Reason for exam: Twin COMPARISON: 12/24/2024 TECHNIQUE: The water vessel captain reports a fetus A BPP of 8 out of 8. MVP is4.8 cm. heart rate 141 bpm. The water vessel captain reports fetus B BPP of 8 out of 8. MVP is 5.7 cm. heart rate 150 bpm. US/US OB BPP w non-stress IMPRESSION: BPP 8out of 8 for Fetus A. BPP 8 out of 8 for fetus B. Impression dictated by: Barrington Spears Jr., D.O. 12/28/2024 3:38 PM Dictation Location: [place] [address] Electronically authenticated by: [id number] Y Date: 5:38 Dictated By: Barrington Spears M.D. Signed By:12/28/24 1541 DD/ 1538 TD/TT: Business Development Consultant: Vic Eugene DO [facility] Final Result documented in this encounter Visit Diagnoses Not on filedocumented in this encounter Additional Health Concerns Active Problems Noted Date Diagnosed Date OB Reminders 08/14/2024 documented as of this encounter Care Teams Bird Keeper Relationship Specialty Start Date End Date Marlon Laguna MD [address] [facility] [place] [address] PCP - General Family Medicine 08/29/23 Vic Eugene DO [address] [place] [address] [place] [address] Referring Physician Obstetrics and Gynecology 08/16/24 documented as of this encounter
--- OUTSIDE RECORDS SUMMARY | 2025-01-04 11:06 | XMS_ITS | Encounter Summary ---
Author Organization [facility] tem Address [id number] [address] [place] [address] Care Team Providers Care College Specialist Name Role Phone Belén Rooney MD Primary Care Provider [phone] Encounter Details Date Type Department Care Team (Late st Contact Info) Description 01/04/2025 Documentation Maternal- Medicine at [facility] [address] [place] [address] Rima Echevarria, COMBINATION MACHINE [facility] [address] [facility] [address] [place] [address] Social History Tobacco Use Types Packs/Day Years [...] on file documented as of this encounter Progress Notes * MILY Caban - 01/04/2025 9:25 AM EDT Left message for patient to return call to discuss next appointments with MFM, provider and ultrasound. MILY Caban 01/04/25 0926 documented in this encounter Plan of Treatment Upcoming Encounters Date Type Department Care Team (Late st Contact Info) Description 01/06/2025 8:45 AM EDT Appointment [facility] - [facility] US Imaging [address] [place] [address] 01/10/2025 8:30 AM EDT Office Visit Maternal- Medicine at [facility] [address] [place] [address] Jefferson Nava MD [address], [address] [place] [address] 01/12/2025 9:00 AM EDT Appointment [facility] US Imaging [address] [place] [address] 01/14/2025 10:30 AM EDT Office Visit [facility] Obstetrics/Gynecology [address] [facility] [address] [place] [address] Morenita Euceda MD [address] [facility] [place] [address] 01/21/2025 8:00 AM EDT Appointment [facility] US Imaging [address] [place] [address] documented as of this encounter Visit Diagnoses Not on filedocumented in this encounter Care Teams College Specialist Relationship Specialty Start Date End Date Belén Rooney MD [address] [place] [address] PCP - General Family Medicine 09/29/18 documented as of this encounter
--- OUTSIDE RECORDS SUMMARY | 2025-01-04 11:06 | XMS_ITS | Encounter Summary ---
Author Organization [facility] Address [address] [place] [address] Care Team Providers Care Collision Mechanic Name Role Phone Marlon Laguna MD Primary Care Provider [phone] Saul Eugene DO Unavailable Encounter Details Date Type Department Care Team (Late st Contact Info) Description 01/03/2025 Abstract KOKO PALMER [address] [place] [phone] Saul Eugene DO [address] [place], [facility] Social History Tobacco Use Types [...] NOMKt PALMER [address] [place] [address] Saul Eugene DO [address] [place] [address] 03/28/2025 2:00 PM EST Office Visit [facility] [place] [facility] [address] [facility] [address] Saul Eugene DO [address] [facility] [place] [address] documented as of this encounter Goals Goal Patient Goal Type Associated Problems Recent Progress Patient-Stated? Author Reminders Care Plan OB Reminders No Open Scheduling, Background documented as of this encounter Visit Diagnoses Not on filedocumented in this encounter Additional Health Concerns Active Problems Noted Date Diagnosed Date OB Reminders 08/14/2024 documented as of this encounter Care Teams Collision Mechanic Relationship Specialty Start Date End Date Marlon Laguna MD [address] [facility] [place] [address] PCP - General Family Medicine 08/29/23 Saul Eugene DO [address] [place] [address] Referring Physician Obstetrics and Gynecology 08/16/24 documented as of this encounter
--- OUTSIDE RECORDS SUMMARY | 2025-01-04 11:06 | XMS_ITS | Encounter Summary ---
Author Organization [facility] Address [address] [place] [address] Care Team Providers Care [employer] Industrial Arts Teacher Name Role Phone Marlon Laguna MD Primary Care Provider [phone] Vic Eugene DO Unavailable Encounter Details Date Type Department Care Team (Late st Contact Info) Description 12/21/2024 Clinisync Result Encounter [facility] External Department Unsolicited Vic Eugene, [address] [place], [place] [phone] Social History Tobacco Use Types Packs/Day Years [...] AM EDT Routine [facility] [place] [facility] [address] [place] [address] Vic Eugene, DO [address] [facility] [place] [address] 03/28/2025 2:00 PM EST Office Visit [facility] [place] [facility] [address] [facility] [place] [address] Vic Eugene, DO [address] [facility] [place] [address] documented as of this encounter Goals Goal [...] Narrative 12/21/2024 3:02 PM EDT The [address] [address] Ultrasound Report Signed Patient: MINNIE BUNCH MR#: [id number] : 1995 Acct:[id number] Age/Sex: 29 / F ADM Date: 12/21/24 Loc: US Attending Dr: Vic Eugene D.O. Ordering Physician: Vic Eugene D.O. Date of Service: 12/21/24 Procedure(s): US OB BPP w non-stress Accession Number(s): [id number] cc: Vic Eugene D.O.; Marlon Laguna M.D. The [address] [address] Patient Name: MINNIE BUNCH MRN: [id number] date: 1995 Sex: F Assigned Patient Location: US Current Patient Location: Accession/Order Number: [id number] Exam Date: 12/21/2024 14:56 Report Date: 12/21/2024 15:00 At the request of: VIC EUGENE DO Procedure: US OB BPP w non-stress Biophysical profile. Reason for exam: No chorionic diamniotic twin gestation. COMPARISON: None TECHNIQUE: Transabdominal imaging of the gravid uterus was obtained. FINDINGS: The mailroom associate reports a fetus A BPP of 6 out of 8 with 0 points for breathing.. MVP is 6.3 cm. heart rate 135 bpm. The mailroom associate reports fetus B BPP of 8 out of 8. MVP is 3.7 cm. heart rate 139 bpm. US/US OB BPP w non-stress IMPRESSION: BPP 6out of 8 for Fetus A. Correlation with NST is recommended. BPP 8 out of 8 for fetus B. Impression dictated by: Barrington Spears Jr., D.O. 12/21/2024 3:00 PM Dictation Location: [place] [address] Electronically authenticated by: [id number] Y Date: 12/21/2024 15:00 Dictated By: Barrington Spears M.D. Signed By: 12/21/24 1502 DD/ 1500 TD/TT: Crop Production Advisor: Procedure Note Radiology, Radiologist, MD - 12/21/2024 [place] [address] Ultrasound Report Signed Patient: MINNIE BUNCH [facility]#: [id number] : 1995Acct:[id number] Age/Sex: Date: 12/21/24 Loc: US Attending Dr: Vic Eugene D.O. Ordering Physician: Vic Eugene D.O. Date of Service: 12/21/24 Procedure(s): US OB BPP w non-stress Accession Number(s): [id number] cc: Vic Eugene D.O.; Marlon Laguna M.D. The [place] [id number] Patient Name: MINNIE BUNCH MRN: [id number] date: 1995 Sex: F Assigned Patient Location: Current Patient Location: Accession/Order Number: [id number] Exam Date: 12/21/2024 14:56 Report Date: 12/21/2024 15:00 At the request of: VIC EUGENE DO Procedure: US OB BPP w non-stress Biophysical profile. Reason for exam: No chorionic diamniotic twin gestation. COMPARISON: None TECHNIQUE: Transabdominal imaging of the gravid uterus was obtained. FINDINGS: The mailroom associate reports a fetus A BPP of 6 out of 8 with 0points for breathing.. MVP is 6.3 cm. heart rate 135 bpm. The mailroom associate reports fetus B BPP of 8 out of 8. MVP is 3.7 cm. heart rate 139 bpm. US/US OB BPP w non-stress IMPRESSION: BPP 6out of 8 for Fetus A. Correlation with NST is recommended. BPP 8 out of 8 for fetus B. Impression dictated by: Barrington Spears Jr., D.O. 12/21/2024 3:00 PM Dictation Location: [place] [address] Electronically authenticated by: [id number] Y Date: 5:00 Dictated By: Barrington Spears M.D. Signed By:12/21/24 1502 DD/ 1500 TD/TT: Crop Production Advisor: Vic Eugene DO [facility] Final Result documented in this encounter Visit Diagnoses Not on filedocumented in this encounter Additional Health Concerns Active Problems Noted Date Diagnosed Date OB Reminders 08/14/2024 documented as of this encounter Care Teams High [employer] Industrial Arts Teacher Relationship Specialty Start Date End Date Marlon Laguna MD [address] [facility] [place] [address] PCP - General Family Medicine 08/29/23 Vic Eugene DO [address] [place] [address] [place] [address] Referring Physician Obstetrics and Gynecology 08/16/24 documented as of this encounter
--- OUTSIDE RECORDS SUMMARY | 2025-01-04 11:06 | XMS_ITS | Patient Health Record ---
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 Stress is when someone feels tense, nervous, anxious, or can't sleep at night because their mind is troubled A little bit patient entered data In the past year have you sp ent more than 2 nights in a row in a correction, group home, snf center, or juvenile correctional facility? No patient [...] Encounter Location Date Provider Diagnosis Dental Main [facility] [place], [place] [phone] 02/23/2024 Heaven French-Hudley Necrosis of pulp K 04.1 and Encounter for dental examination and cleaning without abnormal findings Z01.20 Dental Main [address] [place], [place] [phone] 11/19/2024 Yuliet Lozano Dental caries into dentine [...] Name:Deshawn Moon , 06/10/2025 09:45:00 AM, [address] [place], [place], [id number], Insurance Providers Payer Name Payer Address Payer Phone Subscriber Number Group Number Insured Name Patient Relationship to Insured Coverage Start Date Coverage End Date [facility] [address] [place], [place] [id number] [phone] [id number] Sukhwinder Pedro Spouse - patient is the spouse of the insured
--- OUTSIDE RECORDS SUMMARY | 2025-01-04 11:06 | XMS_ITS | Encounter Summary ---
Author Organization [facility] Address [address] [place] [address] Care Team Providers Care Research Associate Molecular Biology Name Role Phone Marlon Laguna MD Primary Care Provider [phone] Saul Eugene DO Unavailable Encounter Details Date Type Department Care Team (Late st Contact Info) Description 11/22/2024 Abstract KOKO PALMER [address] [place] [phone] Saul Eugene DO [address] [place], [facility] Social History Tobacco Use Types Packs/Day Years [...] PALMER [address] [place] [address] Saul Eugene DO [address] [place] [address] 03/28/2025 2:00 PM EST Office Visit [facility] [place] [facility] [address] [facility] [place] [address] Saul Eugene DO [address] [facility] [place] [address] documented as of this encounter Goals Goal Patient Goal Type Associated Problems Recent Progress Patient-Stated? Author Reminders Care Plan OB Reminders No Open Scheduling, Background documented as of this encounter Visit Diagnoses Not on filedocumented in this encounter Additional Health Concerns Active Problems Noted Date Diagnosed Date OB Reminders 08/14/2024 documented as of this encounter Care Teams Research Associate Molecular Biology Relationship Specialty Start Date End Date Marlon Laguna MD [address] [facility] [place] [address] PCP - General Family Medicine 08/29/23 Saul Eugene DO [address] [place] [address] Referring Physician Obstetrics and Gynecology 08/16/24 documented as of this encounter
--- OUTSIDE RECORDS SUMMARY | 2025-01-04 11:08 | XMS_ITS | Encounter Summary ---
Author Organization [facility] Address [id number] [address] [place] [address] Care Team Providers Care Apiculture Teacher Name Role Phone Belén Rooney MD Primary Care Provider + [phone] Reason for Referral * Diagnostic Imaging (Routine) [...] without consult Alex Subramanian MD [address] [facility], [address] [place] [address] Phone: tel: fax: Maternal- Medicine at [facility] [address] [place] [address] Phone: tel: fax: Referral ID Status Reason Start Date Expiration Date V isits Requested Visits Authorized [id number] Pending Review 12/29/2024 12/29/2025 1 1 Encounter Details Date Type Department Care Team (Late st Contact Info) Description 12/29/2024 Orders Only Maternal- Medicine at [facility] [address] [place] [address] Tressa Das RN Intrauterine growth [...] Info) Description 01/06/2025 8:45 AM EDT Appointment [facility] US Imaging [address] [place] [address] 01/10/2025 8:30 AM EDT Office Visit Maternal- Medicine at [facility] [address] [place] [address] Jefferson Nava MD [address] [facility] [place], [address] [place] [address] 01/12/2025 9:00 AM EDT Appointment [facility] US Imaging [address] [place] [address] 01/14/2025 10:30 AM EDT Office Visit [facility] Obstetrics/Gynecology [address] [facility] [address] [place] [address] Morenita Euceda MD [address] [facility] [address] [place] [address] 01/21/2025 8:00 AM EDT Appointment [facility] US Imaging [address] [place] [address] Scheduled Orders Name Type Priority Associated Diagnoses [...] trimester documented in this encounter Care Teams Apiculture Teacher Relationship Specialty Start Date End Date Belén Rooney MD [address] [place] [phone] PCP - General Family Medicine 09/29/18 documented as of this encounter
--- OUTSIDE RECORDS SUMMARY | 2025-01-04 11:08 | XMS_ITS | Encounter Summary ---
Author Organization [facility] Address [id number] [address] [place] [address] Care Team Providers Care Traffic Safety Administrator Name Role Phone Belén Rooney MD Primary Care Provider Encounter Details Date Type Department Care Team (Late st Contact Info) Description 04/26/2021 Orders Only [facility] Neurology - Farshad Ramsay MD [address] [address] Farshad Ramsay MD [address] [place] [address] Trigeminal neuralgia Social History Tobacco Use Types [...] Info) Description 01/06/2025 8:45 AM EDT Appointment [facility] US Imaging [address] [place] [address] 01/10/2025 8:30 AM EDT Office Visit Maternal- Medicine at [facility] [address] [place] [address] Jefferson Nava MD [address] [facility] [address] [place] [address] 01/12/2025 9:00 AM EDT Appointment [facility] US Imaging [address] [place] [address] 01/14/2025 10:30 AM EDT [facility] [address] [facility] [address] [place] [address] Morenita Euceda MD [address] [facility] [address] [place] [address] 01/21/2025 8:00 AM EDT Appointment [facility] US Imaging [address] [place] [address] documented as of this encounter Procedures Procedure Name Priority Date/Time Associated Diagnosis Comments CBC WITH AUTO DIFFERENTIAL Routine 04/25/2021 Trigeminal neuralgia LIVER PANEL Routine 04/25/2021 Trigeminal neuralgia documented in this encounter Results * CBC auto differential (04/25/2021) 04/25/2021 us Farshad Ramsay MD LAB BLOOD ORDERABLES Final Result MANUALLY TRANSCRIBED RESULTS * Liver panel (04/25/2021) 04/25/2021 us Farshad Ramsay MD LAB BLOOD ORDERABLES Edited Result - Final Performing Organization Address City/State/[facility] Co de Phone Number MANUALLY TRANSCRIBED RESULTS documented in this encounter Visit Diagnoses Diagnosis Trigeminal neuralgia documented in this encounter Care Teams Traffic Safety Administrator Relationship Specialty Start Date End Date Belén Rooney MD [address] [place] [phone] PCP - General Family Medicine 09/29/18 documented as of this encounter
--- OUTSIDE RECORDS SUMMARY | 2025-01-04 11:08 | XMS_ITS | Encounter Summary ---
Author Organization [facility] tem Address [facility]-[id number] [address] [place] [address] Care Team Providers Care Commercial Development Manager Name Role Phone Belén Rooney MD Primary Care Provider [phone] Reason for Referral * Diagnostic Imaging (Routine) [...] without consult Alex Subramanian MD [address] [address] Phone: tel: fax: Maternal- Medicine at [facility] [address] [place] [address] Phone: tel: fax: Referral ID Status Reason Start Date Expiration Date V isits Requested Visits Authorized [id number] Pending Review 12/29/2024 12/29/2025 1 1 * [...] Alex Subramanian MD [address], [address] [place] [address] Phone: tel: fax: Maternal- Medicine at [facility] [address] [facility] [place] [address] Phone: tel: fax: Referral ID Status Reason Start Date Expiration Date V isits Requested Visits Authorized [id number] Pending Review 12/29/2024 12/29/2025 1 1 Encounter Details Date Type Department Care Team (Late st Contact Info) Description 12/29/2024 Orders Only Maternal- Medicine at [facility] [address] [place] [address] Tressa Das RN Intrauterine growth [...] 0.6 oz pur e alcohol) [facility] Utilities Answer Date Recorded In the past 12 months has [employer], gas, oil, or water [employer] threatened to shut off services in your [...] 8:45 AM EDT Appointment [facility] [address] [place] [phone] 01/10/2025 8:30 AM EDT Office Visit Maternal- Medicine at [facility] [address] [place] [address] Jefferson Nava MD [address] [facility] [address], [address] [place] [address] 01/12/2025 9:00 AM EDT Appointment [facility] [address] [facility] [place] [phone] 01/14/2025 10:30 AM EDT Office Visit [facility] Obstetrics/Gynecology [address] [facility] [address] [place] [address] Morenita Euceda MD [address] [facility], [facility] [address] [place] [address] 01/21/2025 8:00 AM EDT Appointment [facility] - MFM US Imaging [address] [place] [phone] Scheduled Orders Name Type Priority Associated Diagnoses Orde r Schedule US MFM with or without consult Imaging Routine Intrauterine growth restriction affecting antepartum care of mother in second trimester, fetus 1 of multiple gestation Monochorionic diamniotic twin gestation in second trimester Velamentous insertion of umbilical cord in third trimester Expected: 12/29/2025 (Approximate), Expires: 12/29/2025 US MFM with or without consult Imaging [...] documented in this encounter Care Teams Commercial Development Manager Relationship Specialty Start Date End Date Belén Rooney MD [address] [place] [phone] PCP - General Family Medicine 09/29/18 documented as of this encounter
--- OUTSIDE RECORDS SUMMARY | 2025-01-04 11:08 | XMS_ITS | Encounter Summary ---
Author Organization [employer] tem Address [facility]-[id number] [address] [place] [address] Care Team Providers Care Mica Builder Name Role Phone Belén oRoney MD Primary Care Provider [phone] Reason for Visit * Reason Onset Date Comments Med Refill 07/05/2021 Encounter Details Date Type Department Care Team (Late st Contact Info) Description 07/05/2021 Refill [facility] Neurology - Farshad Ramsay MD [address] [address] Farshad Ramsay MD [address] [place] [address] Trigeminal neuralgia (Primary Dx) Social History Tobacco [...] Info) Description 01/06/2025 8:45 AM EDT Appointment [facility] [address] [place] [phone] 01/10/2025 8:30 AM EDT Office Visit Maternal- Medicine at [facility] [address] [place] [address] Jefferson Nava MD [address] [facility] [place], [address] [place] [address] 01/12/2025 9:00 AM EDT Appointment [facility] Imaging [address] [place] [address] 01/14/2025 10:30 AM EDT Office Visit [facility] Obstetrics/Gynecology [address] [facility] [address] [place] [address] Morenita Euceda MD [address] [facility] [place] [address] [place] [address] 01/21/2025 8:00 AM EDT Appointment [facility] Imaging [address] [place] [phone] documented as of this encounter Visit Diagnoses Diagnosis Trigeminal neuralgia- Primary documented in this encounter Care Teams Mica Builder Relationship Specialty Start Date End Date Belén Rooney MD [address] [place] [address] PCP - General Family Medicine 09/29/18 documented as of this encounter
[2025-01-04 11:31] VITALS: BP 124/70; PULSE 89
== END 2025-01-04 11:50 | disposition home or self-care (01) ==
LOC: US 11:03 → FBC 11:05
PROVIDERS: PCP Family Medicine; Visit Provider Obstetrics & Gynecology
DX: O30.032 Twin pregnancy, monochorionic/diamniotic, second trimester (principal)
CPT/HCPCS: 76818

== ENCOUNTER 2025-01-07 12:00 | Outpatient (OUT) | payer OTHER, SELFPAY ==
[2025-01-07 12:07] VITALS: BP 124/76; PULSE 81
== END 2025-01-07 12:30 | disposition home or self-care (01) ==
LOC: FBCO 12:00 → FBC 12:01
PROVIDERS: PCP Family Medicine; Visit Provider Obstetrics & Gynecology
DX: O26.893 Other specified pregnancy related conditions, third trimester (principal); Z3A.30 30 weeks gestation of pregnancy
CPT/HCPCS: 59025

== ENCOUNTER 2025-03-22 10:11 | Outpatient (OUT) | payer OTHER, SELFPAY ==
--- OUTSIDE RECORDS SUMMARY | 2024-09-10 07:15 | XMS_ITS ---
Author Organization [facility] vices Address [address] [place] [phone] Care Team Providers Care Head Of Acquisitions Name Role Phone Heaven Vera Unavailable [phone] Yuliet Lozano Unavailable [phone] REASON FOR VISIT Recall (A) (28) Social History Sex Assigned At : Social History Observation Description Sex Assigned At Female Encounters Encounter Location Date Provider Diagnosis [facility] [address] [place] [phone] 09/10/2024 Yuliet Lozano Plan Of Treatment Next Appt Details Provider Name:Deshawn Moon , 06/10/2025 09:45:00 AM, [address] [place], [place], [phone], Progress Notes * Alia BUNCHDOB: [birth year] (29 yo F)Acc No.[id number]:09/10/2024 Patient:?Alia BUNCH :?Yuliet Lozano, DEMARDOB:1995???Age:29 Y ???Sex:FemaleDate:09/10/2024Phone:[phone]:[address] [facility] [place], [id number] Subjective: * Chief Complaints: * 1 . Recall (A) (28). * Medical History: Objective: * Vitals: Assessment: Plan: * Treatment: * Billing Information: * Visit Code: * Procedure Codes: * Electronic signature of Yuliet Lozano DMD on 03/22/2025 at 10:15 AM EDTSign off status: Pending * Provider: Kimberlee Lozano DMD Date: 0 09/10/2024 Generated for Printing/Faxing/eTransmitting on:?03/22/2025 10:15 AM EDT
--- OUTSIDE RECORDS SUMMARY | 2024-12-23 04:45 | XMS_ITS ---
Author Organization [facility] vices Address [address] [place] [phone] Care Team Providers Care Banking Services Clerk Name Role Phone Heaven Vera Unavailable [phone] Deshawn Moon Unavailable [phone] REASON FOR VISIT Recall (A) 29 Social History Sex Assigned At : Social History Observation Description Sex Assigned At Female Encounters Encounter Location Date Provider Diagnosis Dental Main [address] [place], [place] [phone] 12/23/2024 Deshawn Moon Plan Of Treatment Next Appt Details Provider Name:Deshawn Moon , 06/10/2025 09:45:00 AM, [address] [place], [place], [phone], Progress Notes * Alia BUNCHDOB: 6 (29 yo F)Acc No.[id number]:12/23/2024 Patient:?Alia BUNCH :?Deshawn Moon, DDSDOB:1995???Age:29 Y ???Sex:FemaleDate:12/23/2024Phone:[phone]:[address] [facility] [place], [id number] Subjective: * Chief Complaints: * 1 . Recall (A) 29. * Medical History: Objective: * Vitals: Assessment: Plan: * Treatment: * Billing Information: * Visit Code: * Procedure Codes: * Electronic signature of Deshawn Moon DDS on 03/22/2025 at 10:15 AM EDTSign off status: Pending * Provider: Christopher Moon DDS Date: 0 12/23/2024 Generated for Printing/Faxing/eTransmitting on:?03/22/2025 10:15 AM EDT
--- OUTSIDE RECORDS SUMMARY | 2025-03-18 11:15 | XMS_ITS | Encounter Summary ---
Author Organization [facility] tem Address [facility]-[id number] [address] [place] [address] Care Team Providers Care Radiological Technician Name Role Phone Marlon Laguna MD Primary Care Provider [phone] Reason for Visit * ReasonCommentsPostpartum Care Encounter Details DateTypeDepartmentCare Team (Latest Contact Info)Fayzmgpmzlp58/24/2025 11:15 AM EDTPostpartum Visit [facility] Obst[facility]Gynecology [address] [facility] [address] [place] [address] Morenita Euceda MD [address] [facility], [address] [place] [address] Encounter for visit (Primary Dx) Social History Tobacco UseTypesPacks/DayYears UsedDateSmoking Tobacco: NeverSmokeless Tobacco: Never Tobacco Cessation:Counseling Given: Not Answered Alcohol UseStandard Drinks/WeekCommentsNot Currently0 (1 standard drink = 0.6 oz pure alcohol)[facility] UtilitiesAnswerDate RecordedIn the past 12 months has the electric, gas, oil, or water company threatened to shut off services in your home?No11/07/2024PHQ-2AnswerDate RecordedTotal Uwmvd961PRAPARE - TransportationAnswerDate RecordedIn the past 12 months, has lack of transportation kept you from medical appointments or from getting medications?No 11/07/2024In the past 12 months, has lack of transportation kept you from meetings, work, or from getting things needed for daily living?No11/07/2024 Overall Financial Resource Strain (CARDIA)AnswerDate RecordedHow hard is it for you to pay for the very basics like food, housing, medical care, and heating?Not hard at all03/16/2025Edinburgh Depression ScaleAnswerDate Recorded [place] Depression Scale Ogjdf352The thought of harming myself has occurred to me.Never03/16/2025Housing InstabilityAnswerDate Recorded Are you worried or concerned that in the next two months you may not have stable housing that you own, rent or stay in as a part of a household?No11/07/2024 ChildcareAnswerDate RecordedDo problems getting childcare center administrator make it difficult for you to work or study?No03/16/2025EmploymentAnswerDate RecordedEmploymentUnknown 11/04/2018Hunger ScreeningAnswerDate RecordedWithin the past 12 months we worried whether our food would run out before we got money to buy more.Never True03/18/2025Within the past 12 months the food we bought just didn't last and we didn't have money to get more.Never True03/18/2025Purpose - LifeAnswerDate RecordedPurpose and direction in sfqdVpusijx60/11/2021CommentsNoSex and Gender InformationValueDate RecordedSex Assigned at BirthNot on fileLegal Sex Qbireg8612/29/2014 11:52 AM EDTGender BcudleywGmnscl52/12/2025 7:53 AM EDTSexual OrientationNot on filedocumented as of this encounter Last Filed Vital Signs Vital SignReadingTime TakenCommentsBlood Yeecfkcl693/8803/18/2025 11:21 AM EDT Pulse--Temperature--Respiratory Rate--Oxygen Saturation--Inhaled Oxygen Concentration--Gvodgz54 kg (141 lb)03/18/2025 11:21 AM QLVIoufof071.5 cm (5' 2 ) 03/18/2025 11:21 AM EDTBody Mass Index25.7903/18/2025 11:21 AM EDTdocumented in this encounter Progress Notes * Morenita Euceda MD - 03/18/2025 11:15 AM EDT OBGYN OFFICE VISIT 03/18/2025 Subjective: Ralf Pedro is a 29 y.o. female who presents for a 6wk visit. She delivered via of twins on 01/31/25 at 33w6d. was complicated by: [place] TIUP FGR twin A PPROM course has been uncomplicated. Both twin girls have been home for almost 3 weeks. Infants (Kait and Miriam) are doing well and has been seen by information technology auditor Baby is feeding by breasts Breasts - reports tj, seeing . Started procardia 10mg BID Abdominal pain - none bleeding - none Perineal pain - patient was seen for vulvar irritation 02/28/25 after 2 doses of diflucan did not resolve symptoms. Vaginitis swab and UCx were neg. States she thinks stitches have dissolved or fallenoff and the area feels much better Bowel function is normal. Bladder function is normal. Sexually active since delivery: denies Pt plan for contraception: condoms Symptoms of depression: denies Objective: BP 138/88 Ht 157.5 cm (5' 2 ) Wt 64 kg (141 lb) LMP 06/08/2024 Yes BMI 25.79 kg/m?? Physical Exam: Vitals: 03/18/25 1121 BP: 138/88 Weight: 64 kg (141 lb) Height: 157.5 cm (5' 2 ) Body mass index is 25.79 kg/m??. Gen: AOx3 HEENT: NCAT R: Even and non labored Neuro: No gross deficits MSK: No gross abnormalities Ext: neg BL LE Edema Abd: soft and non-tender, no rebound tenderness or guarding Pelvic exam: (Patient was offered a medical automatic brine mixer operator and declined. ) VULVA: normal appearing vulva with no masses, tenderness or lesions VAGINA: normal appearing vagina with normal color and discharge, no lesions CERVIX: normal appearing cervix without discharge or lesions UTERUS: uterus is normal size, shape, consistency and nontender ADNEXA: normal adnexa in size, nontender and no masses Assessment and Plan: 29 y.o. female 1. Encounter for visit - reviewed danger signs including s/s depression and mastitis - control method: condoms, reviewed 18mo interval for next - EPDS reviewed: score 0 RTO: prn/WWE documented in this encounter Plan of Treatment Not on file documented as of this encounter Visit Diagnoses Diagnosis Encounter for visit- Primary documented in this encounter Additional Health Concerns AssessmentNoted TimePHQ-9 Depression Total Score: 10:17 AM EDT documented as of this encounter Care Teams Team MemberRelationshipSpecialtyStart DateEnd Date Marlon Laguna MD [address] [place] [address] PCP - GeneralFamily Medicine01/14/25documented as of this encounter
--- OUTSIDE RECORDS SUMMARY | 2025-03-22 10:15 | XMS_ITS | Encounter Summary ---
Author Organization [facility] tem Address [facility]-[id number] [address] [place] [address] Care Team Providers Care Health Program Specialist Name Role Phone Marlon Laguna MD Primary Care Provider [phone] Encounter Details DateTypeDepartmentCare Team (Latest Contact Info)Zjmceyfrath85/22/2025Results Follow-Up [facility] Obstetrics/Gynecology [address] [facility] [address] [place] [address] Morenita Euceda MD [address] [facility] [place] [address] [place] [address] [employer] and [employer]BC Social History Tobacco UseTypesPacks/DayYears UsedDateSmoking Tobacco: NeverSmokeless Tobacco: NeverAlcohol UseStandard Drinks/WeekCommentsNot Currently0 (1 standard drink = 0.6 oz pure alcohol)[facility] UtilitiesAnswerDate RecordedIn the past 12 months has the electric, gas, oil, or water company threatened to shut off services in your home?No11/07/2024PHQ-2AnswerDate RecordedTotal Upcvm723PRAPARE - TransportationAnswerDate RecordedIn the past 12 months, [...] heating?Not hard at all03/16/2025Edinburgh Depression ScaleAnswerDate Recorded [place] Depression Scale Ijvlc066The thought of harming myself has occurred to me.Never03/16/2025Housing InstabilityAnswerDate Recorded Are you worried or concerned that in the next two months you may not have stable housing that you own, rent or stay in as a part of a household?No11/07/2024 ChildcareAnswerDate RecordedDo problems getting child adolescent psychiatrist make it difficult for you to work or study?No03/16/2025EmploymentAnswerDate RecordedEmploymentUnknown 11/04/2018Hunger ScreeningAnswerDate RecordedWithin the past 12 months we worried whether our food would run out before we got money to buy more.Never True03/16/2025Within the past 12 months the food we bought just didn't last and we didn't have money to get more.Never True03/16/2025Purpose - LifeAnswerDate RecordedPurpose and direction in uqujGqccsbu93/11/2021CommentsYesSex and Gender InformationValueDate RecordedSex Assigned at BirthNot on fileLegal Sex Mbluld1012/29/2014 11:52 AM EDTGender HuwvwgztPmukmx05/12/2025 7:53 AM EDTSexual OrientationNot on filedocumented as of this encounter Functional Status documented as of this encounter Plan of Treatment Not on file documented as of this encounter Visit Diagnoses Not on filedocumented in this encounter Care Teams Team MemberRelationshipSpecialtyStart DateEnd Marlon Laguna MD [address] [facility], [place] [address] PCP - GeneralFamily Medicine01/14/25documented as of this encounter
--- OUTSIDE RECORDS SUMMARY | 2025-03-22 10:15 | XMS_ITS | Patient Health Record ---
Author Organization [facility]ices Address [address] [place], [place] [address] Care Team Providers Care Senior Compliance Analyst Name Role Phone Heaven Vera Unavailable [phone] Deshawn Moon Unavailable [phone] Yuliet Lozano Unavailable [phone] Allergies No Known Allergies Reason For Referral No Information Medications Medication SIG (Take, Route, Frequency, Duration) Notes Start Date End Date Status Wilmer 24 FE 1-20 MG-MCG(24) 1 tablet Orally Once a day Not-TakingAspirin 81ActiveCyproheptadine HCl 4 MG1 tablet Orally Twice a day Not-TakingLexapro 20 MG1 tablet Orally Once a dayNot-TakingPrenatalActive Amoxicillin 500 MG1 tablet Orally Three times a day; Duration: 7 days09/15/2023 Not-TakingGabapentin 100 MG1 capsule Orally Once a dayNot-TakingIbuprofen 800 MG 1 tablet with food or milk as needed Orally every 8 hrs; Duration: 7 days 09/15/2023Not-TakingDiflucan 150 MG1 tablet Orally once; Duration: 1 days 09/15/2023Not-Taking Social History Sex Assigned At : Social [...] 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 Stress is when someone feels tense, nervous, anxious, or can't sleep at night because their mind is troubled A little bit patient entered data In the past year have you sp ent more than 2 nights in a row in a snf, long term, care home center, or juvenile correctional facility? No [...] Problem Status W/U Status Risk Notes Problem Body mass index 25-29 - overweig ht ([id number]) BMI 25.0-25.9,adult (Z68.25) Activeconfirmed Vital Signs Heart Rate 77 /min 11/19/2024 Height-cm157.48 cm11/19/2024lood pressure nnaqhpdpd22 mm Hg11/19/2024Weight-kg 66.23 kg11/19/20246244Bdxrfa20 in11/19/2024lood pressure cosxhrop976 mm Hg 11/19/20246815Yjejjm988 lbs11/19/2024BMI26.7 kg/m211/19/2024 Encounters Encounter Location Date Provider Diagnosis Dental Main [address] [place], [place] [address] 11/19/2024 Yuliet Lozano Dental caries into dentine K02.62 and Encounter for dental examination and cleaning with abnormal findings Z01.21 Assessments Encounter Date Diagnosis (ICD Code) Assessment Notes Treatment Notes Treatment Clinical Notes Section Notes 11/19/2024 Dental caries into dentine (ICD- 10 - K02.62) 11/19/2024Encounter for dental examination and cleaning with abnormal findings (ICD-10 - Z01.21) Plan Of Treatment Next Appt Details Provider Name:Deshawn Red , 06/10/2025 09:45:00 AM, [address] [place], [place], [id number], Insurance Providers Payer Name Payer Address Payer Phone Subscriber Number Group Number Insured Name Patient Relationship to Insured Coverage Start Date Coverage End Date [facility] [address] [place], [place] [id number] [phone] [id number] Sukhwinder Pedro Spouse - patient is the spouse of the insured 4
--- OUTSIDE RECORDS SUMMARY | 2025-03-22 10:15 | XMS_ITS | Encounter Summary ---
Author Organization [facility] Address [address] [place] [address] Care Team Providers Care Paper Inserter Name Role Phone Marlon Laguna MD Primary Care Provider [phone] Saul Eugene DO Unavailable Encounter Details DateTypeDepartmentCare Team (Latest Contact Info)Zvaojepudsb17/10/2024Clinisync Result Encounter [facility] External Department Unsolicited Saul Eugene, DO [address] [facility] [address] Social History Tobacco UseTypesPacks/DayYears UsedDateSmoking Tobacco: NeverAlcohol UseStandard Drinks/WeekCommentsNot Currently0 (1 standard drink = 0.6 oz pure alcohol) Occaisonal alcohol use Caffeine:1-2 cups per dayCommentsNoSex and Gender InformationValueDate RecordedSex Assigned at CszyjCdnwij06/18/2023 2:43 PM EDT Legal VdqXmkyvl90/15/2023 7:34 PM EDTGender FcceehkiBehbyx30/18/2023 2:43 PM EDT Sexual WmnhmimrdnjDtkgopgz30/18/2023 2:43 PM EDTdocumented as of this encounter Plan of Treatment Not on file documented as of this encounter Procedures Procedure NamePriorityDate/TimeAssociated DiagnosisCommentsMM TOMOSYNTHESIS DIAGNOSTIC BI11/03/2023 1:17 PM EDT documented in this encounter Results * MM TOMOSYNTHESIS DIAGNOSTIC BI (11/03/2023 1:17 PM EDT)Anatomical Region LateralityModalityOtherSpecimen (Source)Anatomical Location / Laterality Collection Method / VolumeCollection TimeReceived Time11/03/2023 1:17 PM EDT Narrative 11/03/2023 1:18 PM EDT [facility] ?[address] ? [place], [facility] ? Mammography Report ? Signed ? Patient: MINNIE SWIFT A ?MR#: [id number] ?? : 1995 ?Acct:[id number] ?? Age/Sex: 28 / F ?ADM Date: 11/03/23 ?? Loc: MAMMO ? Attending Dr: Saul Eugene D.O. ? Ordering Physician: Saul Eugene D.O. ?Results: ? Date of Service: 11/03/23 ?Follow Up: ? Procedure(s): MM tomosynthesis diagnostic BI ?? Accession Number(s): [id number] ? cc: Saul Eugene D.O.; Marlon Laguna M.D. ? Patient Name: ? MINNIE SWITF ? MR#: [id number] ? : 1995 ? Exam Date: 11/03/2023 ?? Ordering Doctor: DR Saul Eugene . ? RADIOLOGY REPORT ? PROCEDURE: ? MM TOMOSYNTHESIS DIAGNOSTIC BI ? COMPARISON: ? US BREAST LT LIMITED, 09/10/2023. ? INDICATIONS: ? Mass of Left Breast ? Calculator Name ? NCI Breast Cancer Risk Assessment Tool ?? 5 Year Breast Cancer Risk ? Not Applicable. ?? Lifetime Breast Cancer Risk ? Not Applicable. ?? Personal Breast Cancer ?No ?? Personal Ovarian Cancer ? No ?? Treatments ? None ?? Family Cancers ? None ? LOCATION: ? [facility] ? BREAST COMPOSITION: ? There are scattered areas of fibroglandular density. ? FINDINGS: ? DIAGNOSTIC CATEGORY 1--NEGATIVE. ? Scattered benign-appearing lymph nodes are present. ? RIGHT BREAST: ??No significant suspicious finding. ??[place] marker upper outer ?? quadrant, anterior breast corresponding to the patient's palpable abnormality. ?? No mammographic abnormality ? LEFT BREAST: ??No significant suspicious finding. ? RECOMMENDATIONS: ? No mammographic or ultrasound abnormality to correspond to the patient's left ?? breast mass. ??Further evaluation should be based on CLINICAL EVALUATION. ? PLEASE NOTE: ??A NORMAL MAMMOGRAM DOES NOT EXCLUDE THE POSSIBILITY OF BREAST ?? CANCER. ??A CLINICALLY SUSPICIOUS PALPABLE LUMP SHOULD BE BIOPSIED. ? Dictated by: Farshad Fitzgerald MD on 11/03/2023 at 13:12 ? Approved by: Farshad Fitzgerald MD on 11/03/2023 at 13:17 ? Dictated By: ?Farshad Fitzgerald M.D. ? Signed By: ?11/03/23 1318 ? DD/ 1317 ? TD/TT: ? Sports Broadcaster: Procedure Note Radiology, Radiologist, - 11/03/2023 [place] [address] Mammography Report Signed Patient: MINNIE SWIFT AMR#: [id number] : 1995Acct:[id number] Age/Sex: 28 FADM Date: 11/03/23 Loc: MAMMO Attending Dr: Saul Eugene D.O. Ordering Physician: Saul Eugene D.O.Results: Date of Service: 11/03/23Follow Up: Procedure(s): MM tomosynthesis diagnostic BI Accession Number(s): [id number] cc: Saul Eugene D.O.; Marlon Laguna M.D. Patient Name: MINNIE SWIFT MR#: [id number] : 1995 Exam Date: 11/03/2023 Ordering Doctor: [...] Treatments None Family Cancers None LOCATION: [facility] BREAST COMPOSITION: There are scattered areas of fibroglandulardensity. FINDINGS: DIAGNOSTIC CATEGORY 1--NEGATIVE. Scattered benign-appearing lymph nodes are present. RIGHT BREAST: No significant suspicious finding. [place] marker upperouter quadrant, anterior breast corresponding to [...] Farshad Fitzgerald M.D. Signed By:11/03/23 1318 DD/ 1317 TD/TT: Sports Broadcaster: Authorizing ProviderResult TypeResult StatusCorey Valorie DOCLINISYNC IMAGINGFinal Result documented in this encounter Visit Diagnoses Not on filedocumented in this encounter Care Teams Team MemberRelationshipSpecialtyStart DateEnd Date Marlon Laguna MD [address] [facility] [place] [address] PCP - GeneralFamily Medicine08/29/23 Saul Eugene DO [address] [place] [address] [place] [address] Referring PhysicianObstetrics and Gynecology08/16/24documented as of this encounter
--- OUTSIDE RECORDS SUMMARY | 2025-03-22 10:15 | XMS_ITS | Encounter Summary ---
Author Organization [facility] Address [address] [place] [address] Care Team Providers Care Venetian Blind Cleaner Name Role Phone Marlon Laguna MD Primary Care Provider [phone] Saul Eugene DO Unavailable Encounter Details DateTypeDepartmentCare Team (Latest Contact Info)Htfwxcgwrso19/19/2024Clinisync Result Encounter [facility] External Department Unsolicited Saul Eugene, DO [address] [facility] [address] [place], [place] [id number] Social History Tobacco UseTypesPacks/DayYears UsedDateSmoking Tobacco: NeverAlcohol UseStandard Drinks/WeekCommentsNot Currently0 (1 standard drink = 0.6 oz pure alcohol) Occaisonal alcohol use Caffeine:1-2 cups per dayCommentsNoSex and Gender InformationValueDate RecordedSex Assigned at VkebhGuraau35/18/2023 2:43 PM EDT Legal UtnZdqzfd18/15/2023 7:34 PM EDTGender KlpbcipgBmhjxz73/18/2023 2:43 PM EDT Sexual TeprvxrwjccSwixzwby47/18/2023 2:43 PM EDTdocumented as of this encounter Plan of Treatment Not on file documented as of this encounter Procedures Procedure NamePriorityDate/TimeAssociated DiagnosisCommentsUS BREAST LT LIMITED 09/12/2023 2:31 PM EDT documented in this encounter Results * US BREAST LT LIMITED (09/12/2023 2:31 PM EDT)Anatomical RegionLaterality ModalityOtherSpecimen (Source)Anatomical Location / LateralityCollection Method / VolumeCollection TimeReceived Time09/12/2023 2:31 PM EDT Narrative 09/12/2023 2:32 PM EDT [facility] ?[address] ? [place], [facility] ? Ultrasound Report ? Signed ? Patient: MINNIE SWIFT A ?MR#: [id number] ?? : 1995 ?Acct:[id number] ?? Age/Sex: 28 / F ?ADM Date: 09/10/23 ?? Loc: US ? Attending Dr: Saul Eugene D.O. ? Ordering Physician: Saul Eugene D.O. ?? Date of Service: 09/10/23 ?? Procedure(s): US breast LT limited ?? Accession Number(s): [id number] ? cc: Saul Eugene D.O.; Marlon Laguna M.D. ? Patient Name: ? MINNIE SWIFT ? MR#: [id number] ? : 1995 ? Exam Date: 09/10/2023 ?? Ordering Doctor: DR Saul Eugene . ? RADIOLOGY REPORT ? PROCEDURE: ? US BREAST LT LIMITED ? COMPARISON: ? None. ? INDICATIONS: ? mass of left breast, unspecified quadrant N63.20 ? TECHNIQUE: ? Breast ultrasound was performed, with evaluation focusing only ?? on specific areas of concern. ? FINDINGS: ? DIAGNOSTIC CATEGORY 0--INCOMPLETE: NEED ADDITIONAL IMAGING EVALUATION. ? LEFT BREAST: ??No abnormal or suspicious findings via ultrasound evaluation. ? If palpable finding persists diagnostic mammography of left breast should be ?? performed for further evaluation. ? RECOMMENDATIONS: ? MAMMOGRAPHIC VIEWS: LEFT BREAST - MLO, CC ? PLEASE NOTE: ??A NORMAL ULTRASOUND EXAMINATION DOES NOT EXCLUDE THE POSSIBILITY ?? OF BREAST CANCER. ??A CLINICALLY SUSPICIOUS PALPABLE LUMP SHOULD BE BIOPSIED. ? Dictated by: Daljit Chamberlain M.D. on 09/12/2023 at 14:28 ? Approved by: Daljit Chamberlain M.D. on 09/12/2023 at 14:31 ? Dictated By: ?Daljit Chamberlain M.D. ? Signed By: ?09/12/23 1432 ? DD/ ? TD/TT: ? Renal Medicine Physician: Procedure Note Radiology, Radiologist, MD - 09/12/2023 [place] [address] Ultrasound Report Signed Patient: MINNIE SWIFT [facility]#: [id number] : 1995Acct:[id number] Age/Sex: 28 / FADM Date: 09/10/23 Loc: US Attending Dr: Saul Eugene D.O. Ordering Physician: Saul Eugene D.O. Date of Service: 09/10/23 Procedure(s): US breast LT limited Accession Number(s): [id number] cc: Saul Eugene D.O.; Marlon Laguna M.D. Patient Name: MINNIE SWIFT MR#: [id number] : 1995 Exam Date: 09/10/2023 Ordering Doctor: [...] M.D. Signed By:09/12/23 1432 DD/ 1431 TD/TT: Renal Medicine Physician: Authorizing ProviderResult TypeResult StatusCorey Valorie DOCLINISYNC IMAGINGFinal Result documented in this encounter Visit Diagnoses Not on filedocumented in this encounter Care Teams Team MemberRelationshipSpecialtyStart DateEnd Date Marlon Laguna MD [address] [facility] [place] [address] PCP - GeneralFamily Medicine08/29/23 Saul Eugene DO [address] [place] [address] [place] [address] Referring PhysicianObstetrics and Gynecology08/16/24documented as of this encounter
--- OUTSIDE RECORDS SUMMARY | 2025-03-22 10:15 | XMS_ITS | Encounter Summary ---
Author Organization [facility] Address [id number] [address] [place] [address] Care Team Providers Care Sweat Box Attendant Name Role Phone Marlon Laguna MD Primary Care Provider [phone] Encounter Details DateTypeDepartmentCare Team (Latest Contact Info)Dbcwyvlekvd63/22/2025Travel Social History Tobacco UseTypesPacks/DayYears UsedDateSmoking Tobacco: NeverSmokeless Tobacco: NeverAlcohol UseStandard Drinks/WeekCommentsNot Currently0 (1 standard drink = 0.6 oz pure alcohol)[facility] UtilitiesAnswerDate RecordedIn the past 12 months has the electric, gas, oil, or water company threatened to shut off services in your home?No11/07/2024PHQ-2AnswerDate RecordedTotal Uwofl214PRAPARE - TransportationAnswerDate RecordedIn the past 12 months, [...] heating?Not hard at all03/16/2025Edinburgh Depression ScaleAnswerDate Recorded De Young Depression Scale [id number] thought of harming myself has occurred to me.Never03/16/2025Housing InstabilityAnswerDate Recorded Are you worried or concerned that in the next two months you may not have stable housing that you own, rent or stay in as a part of a household?No11/07/2024 ChildcareAnswerDate RecordedDo problems getting infant childcare provider make it difficult for you to work or study?No03/16/2025EmploymentAnswerDate RecordedEmploymentUnknown 11/04/2018Hunger ScreeningAnswerDate RecordedWithin the past 12 months we worried whether our food would run out before we got money to buy more.Never True03/16/2025Within the past 12 months the food we bought just didn't last and we didn't have money to get more.Never True03/16/2025Purpose - LifeAnswerDate RecordedPurpose and direction in qfliYaechcj67/11/2021CommentsNoSex and Gender InformationValueDate RecordedSex Assigned at BirthNot on fileLegal Sex Xuavqh5212/29/2014 11:52 AM EDTGender DqwzcflvKbwsfr34/12/2025 7:53 AM EDTSexual OrientationNot on filedocumented as of this encounter Plan of Treatment Not on file documented as of this encounter Visit Diagnoses Not on filedocumented in this encounter Additional Health Concerns AssessmentNoted TimePHQ-9 Depression Total Score: 10:17 AM EDT documented as of this encounter Care Teams Team MemberRelationshipSpecialtyStart DateEnd Date Marlon Laguna MD [address] [place] [address] PCP - GeneralFamily Medicine01/14/25documented as of this encounter
--- OUTSIDE RECORDS SUMMARY | 2025-03-22 10:15 | XMS_ITS | Clinical Summary ---
Author Organization [facility] Address [address] [place] [address] Care Team Providers Care Die Stamper Name Role Phone Marlon Laguna MD Primary Care Provider [phone] Vic Eugene DO Unavailable Allergies No known active allergies Medications MedicationSigDispense QuantityRefillsLast FilledStart DateEnd DateStatus magnesium oxide (Mag-Ox) 400 mg tablet Take 400 mg by mouth DailyActive docusate sodium (Colace) 100 MG capsule Take 100 mg by mouth in the morning and 100 mg before bedtime.Active aspirin 81 MG EC tablet Take 81 mg by mouth in the morning.Active Alcohol Swabs (Alcohol Prep Pad) 70 % pads Indications:Gestational diabetes mellitus (GDM), antepartum, gestational diabetes method of control unspecified([facility]),Elevated glucose tolerance test Apply 1 Pad topically Daily Use four times daily to check FSBS. 150 each 5Active Blood Glucose Monitoring Suppl (D-Care Glucometer) w/Device kit Indications:Gestational diabetes mellitus (GDM), antepartum, gestational diabetes method of control unspecified([facility]),Elevated glucose tolerance test1 kit Daily Use four times daily to check FSBS. In the morning prior to breakfast & 1 hour after each meal for a total of 4times daily. 1 kit 6Active NIFEdipine (Procardia) 10 MG capsule Indications:Hx of Raynaud's syndromeTake 1 capsule (10 mg) by mouth in the morning and 1 capsule (10 mg) before bedtime. 60 capsule 5Active Vit-Fe Fumarate-FA ( Vitamins) 28-0.8 MG tablet Indications:Well woman exam with routine gynecological examTake 1 tablet by mouth Daily 30 tablet Expired NIFEdipine XL (Procardia XL) 30 MG 24 hr tablet Indications:Raynaud's disease without gangreneTake 1 tablet (30 mg) by mouth Daily Do not crush, chew, or split. 30 tablet Discontinued(Other) NIFEdipine XL (Procardia XL) 30 MG 24 hr tablet Indications:Raynaud's disease without gangreneTake 1 tablet (30 mg) by mouth Daily Do not crush, chew, or split. 30 tablet Discontinued Encounters DateTypeDepartmentCare AqwqNokghqhvjip80/03/2025Telephone [facility] [address] [place] [phone] Oneyda Sood LPN 02/25/2025Telephone [facility] [address] [place] [phone] Natty Freitas MA 02/25/2025Refill [facility] [address] [place] [phone] Natty Freitas, JIN 02/24/2025Telephone [facility] [address] [place] [address] Ximena Aly MA 01/14/2025bstract [facility] [address] [place] [address] Vic Eugene DO 01/12/2025Telephone [facility] [address] [place] [phone] Natty Freitas MA 01/06/2025bstract [facility] [address] [place] [address] Vic Eugene, DO 01/04/2025linisync Result Encounter [facility] External Department Unsolicited Vic Eugene, DO 01/04/2025linisync Result Encounter [facility] External Department Unsolicited Vic Eugene, DO 01/03/2025bstract [facility] [address] [place] [address] Vic Eugene, DO 12/31/2024bstract [facility] [address] [place] [address] Ximena Aly MA 12/30/2024 11:30 AM EDTRoutine [facility] [address] [place] [address] Vic Eugene, DO 29 weeks gestation of ([facility]); Monochorionic diamniotic twin gestation in second trimester ([facility]); Gestational diabetes mellitus (GDM), antepartum, gestational diabetes method of control unspecified([facility]); Third trimester ([facility])12/30/2024amboo flowsheet [facility] [address] [place] [address] Vic Eugene, DO 12/28/2024linisync Result Encounter [facility] External Department Unsolicited Vic Eugene, DO 12/28/2024linisync Result Encounter [facility] External Department Unsolicited Vic Eugene, DO 5Clinisync Result Encounter [facility] External Department Unsolicited Vic Eugene, DO 12/23/20246359Byeemu80/29/2025linisync Result Encounter [facility] External Department Unsolicited Vic Eugnee, DO 12/21/2024linisync Result Encounter [facility] External Department Unsolicited iVc Eugene, DO from Last 3 Months Family History Medical HistoryRelationNameCommentsHypertensionFatherStrokeFatherDiabetes Maternal GrandfatherHeart diseaseMaternal GrandfatherBrain cancerMaternal GrandmotherLung cancerMaternal GrandmotherHypertensionMotherHeart disease Paternal GrandfatherLung cancerPaternal GrandmotherRelationNameStatusComments FatherDeceasedMaternal GrandfatherMaternal GrandmotherMotherAlivePaternal GrandfatherPaternal Grandmother Social History Tobacco UseTypesPacks/DayYears UsedDateSmoking Tobacco: Never Tobacco Cessation:Counseling Given: Not Answered Alcohol UseStandard Drinks/WeekCommentsNot Currently0 (1 standard drink = 0.6 oz pure alcohol)Occaisonal alcohol use Caffeine:1-2 cups per dayEstimated Date of TpflgyagYxuyntxqKyv16/21/2025Based on last menstrual period of 06/08/2024 Sex and Gender InformationValueDate RecordedSex Assigned at BirthFemale 02/10/2023 2:43 PM EDTLegal ZajUphalw84/15/2023 7:34 PM EDTGender IdentityFemale 02/10/2023 2:43 PM EDTSexual SrimfkgnjosAuqxrict27/18/2023 2:43 PM EDT Last Filed Vital Signs Vital SignReadingTime TakenCommentsBlood Suszohxt234/6208 11:29 AM EDT Pulse--Temperature--Respiratory Rate--Oxygen Saturation--Inhaled Oxygen Concentration--Bmbgbl82.2 kg (154 lb 12.8 oz)12/30/2024 11:29 AM VZBCrfkiy934.5 cm (5' 2 )02/10/2023 11:39 AM EDTBody Mass Index28.3109 11:39 AM EDT Plan of Treatment Not on file Goals GoalPatient Goal TypeAssociated ProblemsRecent ProgressPatient-Stated?Author Reminders Care PlanOB RemindersNoOpen Scheduling, Background Procedures Procedure NamePriorityDate/TimeAssociated DiagnosisCommentsUS OB BPP W NON-IEIYMT2701/04/2025 2:54 PM EDT US OB BPP W NON-ZZDFYQ5101/04/2025 2:54 PM EDT POCT URINALYSIS HRGHGZFDNkitqac69/07/2025 11:36 AM EDT 29 weeks gestation of ([facility]) Monochorionic diamniotic twin gestation in second trimester ([facility]) Gestational diabetes mellitus (GDM), antepartum, gestational diabetes method of control unspecified([facility]) Third trimester ([facility]) US OB BPP W NON-HWIGJE5212/28/2024 3:38 PM EDT OB BPP W NON-YDVECQ8912/28/2024 3:38 PM EDT US OB BPP W NON-UDPSYD6212/24/2024 2:02 PM EDT OB BPP W NON-QIUPQI7912/21/2024 3:00 PM EDT OB BPP W NON-ZAGNCK1312/21/2024 3:00 PM EDT from Last 3 Months Results * US OB BPP W NON-STRESS (01/04/2025 2:54 PM EDT) Only the most recent of7 resultswithin the time period is included. Anatomical RegionLateralityModalityOtherSpecimen (Source)Anatomical Location / LateralityCollection Method / VolumeCollection TimeReceived Time01/04/2025 2:54 PM EDT Narrative 01/04/2025 2:57 PM EDT [facility] ?[address] ? [place] [address] ? Ultrasound Report ? Signed ? Patient: MINNIE BUNCH ?MR#: [id number] ?? : 1995 ?Acct:[id number] ?? Age/Sex: 29 / F ?ADM Date: 01/04/25 ?? Loc: US ? Attending Dr: Vic Eugene D.O. ? Ordering Physician: Vic Eugene D.O. ?? Date of Service: 01/04/25 ?? Procedure(s): US OB BPP w non-stress ?? Accession Number(s): [id number] ? cc: Vic Eugene D.O.; Marlon Laguna M.D. ? [facility] ? [address] ? [place] [address] ? Patient Name: ?? MINNIE BUNCH ? MRN: [facility]:[id number] ? date: 1995 ?Sex: F ?? Assigned Patient Location: FB ?? Current Patient Location: ? Accession/Order Number: [id number] ?? Exam Date: 01/04/2025 ??14:53 ?Report Date: 01/04/2025 ??14:54 ? At the request of: ?? VIC ??VALORIE ??DO ? Procedure: ??US OB BPP w non-stress ? Biophysical profile. ? Reason for exam: Twin ? COMPARISON: 12/24/2024 ? TECHNIQUE: The de alcholizer reports a fetus A BPP of 8 out of 8. ??MVP is 6.1 ?? cm. ?? heart rate 145 bpm. ? The de alcholizer reports fetus B BPP of 8 out of 8. ??MVP is 8.3 ??cm. ? heart rate 157 bpm. ? US/US OB BPP w non-stress ?? IMPRESSION: ? BPP 8out of 8 for Fetus A. ? BPP 8 out of 8 for fetus B. ? Impression dictated by: Barrington Spears Jr., D.O. ??01/04/2025 2:54 PM ? Dictation Location: [facility]-- ? Electronically authenticated by: [id number] ??Y ?? Date: 01/04/2025 ??14:54 ? Dictated By: ?Barringotn Spears M.D. ? Signed By: ?01/04/25 1457 ? DD/ 53 ? TD/TT: ? Space Officer: Procedure Note Radiology, Radiologist, MD - 01/04/2025 [place] [address] Ultrasound Report Signed Patient: MINNIE BUNCH [facility]#: [id number] : 1995Acct:[id number] Age/Sex: 29 / FADM Date: 01/04/25 Loc: US Attending Dr: Vic Eugene D.O. Ordering Physician: Vic Eugene D.O. Date of Service: 01/04/25 Procedure(s): US OB BPP w non-stress Accession Number(s): [id number] cc: Vic Eugene D.O.; Marlon Laguna M.D. [place] [address] Patient Name: MINNIE BUNCH MRN: [id number] date: 1995 Sex: F Assigned Patient Location: [facility] Current Patient Location: Accession/Order Number: [id number] Exam Date: 01/04/2025 14:53 Report Date: 01/04/2025 14:54 At the request of: VIC EUGENE DO Procedure: US OB BPP w non-stress Biophysical profile. Reason for exam: Twin COMPARISON: 12/24/2024 TECHNIQUE: The de alcholizer reports a fetus A BPP of 8 out of 8. MVP is6.1 cm. heart rate 145 bpm. The de alcholizer reports fetus B BPP of 8 out of 8. MVP is 8.3 cm. heart rate 157 bpm. US/US OB BPP w non-stress IMPRESSION: BPP 8out of 8 for Fetus A. BPP 8 out of 8 for fetus B. Impression dictated by: Barrington Spears Jr., D.O. 01/04/2025 2:54 PM Dictation Location: [place] [address] Electronically authenticated by: [id number] Y Date: 4:54 Dictated By: Barrington Spears M.D. Signed By:01/04/25 1457 DD/ 1454 TD/TT: Space Officer: Authorizing ProviderResult TypeResult StatusCorey Valorie DOCLINISYNC IMAGINGFinal Result * POCT urinalysis dipstick manually resulted (12/30/2024 11:36 AM EDT)Component ValueRef RangeTest MethodAnalysis TimePerformed AtPathologist SignatureColor, UAYellowClarity, UAClearGlucose, UANegativeNegative - 2000(110) ++++ mg/dL Bilirubin, UANegativeNegative - 4(70) +++ mg/dLKetones, UANegativeNegative - 160(16) ++++ mg/dLSpec Grav, UA1.0151 - 1.03Blood, UANegativeNegative - 50 Nuno/mcLpH, UA7.05 - 9Protein, UANegativeNegative - 2000(20) ++++ mg/dL Urobilinogen, UA1.00.2 - 12 mg/dLLeukocytes, UANegativeNegative - 500+++ Lisa/mcLNitrite, UANegativeNegative - PositiveSpecimen (Source)Anatomical Location / LateralityCollection Method / VolumeCollection TimeReceived Time Urine12/30/2024 11:36 AM EDT Narrative Authorizing ProviderResult TypeResult StatusCorey Valorie DOPOINT OF CARE TEST ENTER/EDIT ORDERABLESFinal Result from Last 3 Months Additional Health Concerns Active ProblemsNoted DateDiagnosed DateOB Bzoisekur44/22/2025 Insurance Care Teams Team MemberRelationshipSpecialtyStart DateEnd Date Marlon Laguna MD [address] [place] [address] PCP - GeneralFamily Medicine08/29/23 Vic Eugene DO [address] [place] [address] [place] [address] Referring PhysicianObstetrics and Gynecology08/16/24
--- OUTSIDE RECORDS SUMMARY | 2025-03-22 10:16 | XMS_ITS | Clinical Summary ---
Author Organization [address] tem Address [id number] [address] [place] [address] Care Team Providers Care Insurance Adjustor Name Role Phone Marlon Laguna MD Primary Care Provider [phone] Allergies No known active allergies Medications MedicationSigDispense QuantityRefillsLast FilledStart DateEnd DateStatus no115/iron/folic acid ( 19 ORAL) Take 1 tablet by mouth in the morning.Active docusate sodium (COLACE) 100 mg capsule Take 1 capsule (100 mg total) by mouth in the morning and 1 capsule (100 mg total) before bedtime. 10 capsule 5Active Additional Information Patient not taking.Reported on 03/18/2025 acetaminophen (TYLENOL EXTRA STRENGTH) 500 mg tablet Take 2 tablets (1,000 mg total) by mouth every 8 (eight) hours as needed for pain. 30 tablet 5Active Additional Information Patient not taking.Reported on 03/18/2025 pyridoxine HCl, vitamin B6, (VITAMIN B-6 ORAL) Take by mouth.Active magnesium oxide (MAG-OX) 400 mg tablet Discontinued(Therapy completed) cyproheptadine (PERIACTIN) 4 mg tablet Discontinued(Therapy completed) busPIRone (BUSPAR) 5 mg tablet Take 1 tablet (5 mg total) by mouth in the morning and 1 tablet (5 mg total) before bedtime./10/2024Discontinued(Therapy completed) doxepin (SINEquan) 10 mg capsule Take 1 capsule (10 mg total) by mouth in the morning and 1 capsule (10 mg total) before bedtime./10/2024Discontinued(Therapy completed) escitalopram (LEXAPRO) 20 mg tablet Take 1 tablet (20 mg total) by mouth in the morning./10/2024 Discontinued(Therapy completed) magnesium oxide (MAGOX) 400 mg tablet Take 1 tablet (400 mg total) by mouth before bedtime.02/28/2025Discontinued (Therapy completed) ibuprofen (MOTRIN) 800 mg tablet Take 1 tablet (800 mg total) by mouth every 8 (eight) hours as needed (cramping). 30 tablet Discontinued(Therapy completed) fluconazole (DIFLUCAN) 150 mg tablet Take 1 tablet (150 mg total) by mouth once for 1 dose. 1 tablet Expired Active Problems ProblemNoted DateDiagnosed DateTrigeminal uqsyuoczu78/17/2022 Resolved Problems ProblemNoted DateDiagnosed DateResolved DatePreterm premature rupture of membranes in third nzpxfqyak12Normal labor Poor growth affecting management of mother in third vpcxjndry44/11/2025 03/17/2025Monochorionic diamniotic twin gestation in third oinmrdzdk30/23/2025 03/17/2025Preterm uterine skkxffmcjewx08 Encounters DateTypeDepartmentCare ZarpMzvctffzrhj50/24/2025 11:15 AM EDTPostpartum Visit [facility] [address] [place] [address] [address] [place] [address] Morenita Euceda MD Encounter for visit (Primary Dx)03/16/20257983Wzszof79/07/2025Results Follow-Up [facility] [address] [place] [address] [address] [place] [phone] Helen Powers MD Vaginitis Panel PCR02/28/2025 3:15 PM EDTPostpartum Visit [facility] [address] [facility] [address] [place] [address] Helen Powers MD Vaginal irritation (Primary Dx); Yeast infection of the vagina; Monochorionic diamniotic twin gestation in third trimester; Eawllvv7002/28/20258144Svlltd56/29/2025Lactation Encounter [facility] - GEN 3 ICU [address] [place] [address] 02/18/2025Lactation Encounter [facility] - GEN 3 ICU [address] [place] [address] 02/15/2025Orders Only [facility] [address] [facility] [address] [facility] [place] [address] Morenita Euceda MD 02/15/2025Lactation Encounter [facility] - GEN 3 ICU [address] [place] [address] 02/14/2025Orders Only [facility] [address] [facility] [address] [facility] [place] [address] Morenita Euceda MD 02/14/2025Lactation Encounter [facility] - GEN 3 ICU [address] [place] [address] 02/14/2025Telephone [facility] [address] [facility] [address] [facility] [place] [address] Herlinda Moreira 02/13/2025Lactation Encounter [facility] - GEN 3 ICU [address] [place] [address] 02/12/2025[facility] [address] [place] [address] 02/11/2025[facility] [address] [place] [address] 02/10/2025[facility] [address] [place] [address] 02/06/2025Lactation Encounter [facility] 3W NICU [address] [place] [address] 02/05/2025Lactation Encounter [facility] 3W NICU [address] [place] [address] 02/04/2025[facility]act[facility] [address] [place] [address] 02/01/2025Lactation Encounter [facility] 3W NICU [address] [place] [address] 01/31/2025 8:05 AM EDT - 01/31/2025 9:42 AM EDTSurgery [facility] [address] [place] [address] Morenita Euceda MD VAGINAL DELIVERY IN OR01/31/2025 12:55 AM EDTAnesthesia Event [facility] - Labor [address] [place] [address] Rohan Paris MD Caincross, Cory M, LEARNING DISABILITIES RESOURCE TEACHER-KILN STACKER 01/27/2025 3:39 PM EDT - 01/27/2025 11:59 PM EDTHospital Encounter [facility] [address] [place] [address] Discharge Disposition: Home01/27/20252792Kiavpi65/02/2025 12:39 PM EDT - 01/25/2025 11:59 PM EDTHospital Encounter [facility] - MFM US Imaging [address] [place] [address] Discharge Disposition: Home01/21/2025 10:19 AM EDT - 01/21/2025 11:59 PM EDT Hospital Encounter [facility] - MFM US Imaging [address] [place] [address] Discharge Disposition: Home01/20/2025Telephone [facility] [address] [facility] [address] [place] [phone] Velia Casey MD 01/17/2025 10:53 AM EDT - 01/17/2025 11:59 PM EDTHospital Encounter [facility] - MF US Imaging [address] [place] [address] Discharge Disposition: Home01/16/2025 6:04 AM EDT - 02/01/2025 2:05 PM EDT Hospital Encounter [facility] - GEN 4 [address] [place] [address] Helen Powers MD Discharge Disposition: Home01/14/2025 10:30 AM EDTOffice Visit [facility] [address] [facility] [address] [facility] [place] [address] Morenita Euceda MD Monochorionic diamniotic twin gestation in third trimester (Primary Dx); Poor growth affecting management of mother in third trimester, fetus 1 of multiple zcuvjfojr91/22/2025 8:15 AM EDTSupport Visit Maternal- Medicine at [facility] [address] [place] [address] Alex Subramanian MD Poor growth affecting management of mother in third trimester, fetus 1 of multiple gestation; Monochorionic diamniotic twin gestation in third gmdosqrhs20/22/2025 8:06 AM EDT - 01/14/2025 11:59 PM EDTHospital Encounter [facility] - [facility] US Imaging [address] [place] [address] Alex Subramanian MD Intrauterine growth restriction affecting antepartum care of mother in second trimester, fetus 1 ofmultiple gestation; Monochorionic diamniotic twin gestation in second trimester; Velamentous insertion of umbilical cord in third trimester Discharge Disposition: Home01/14/2025Results Follow-Up [facility]icians Obstetrics/Gynecology [address] [place] [address] [address] [place] [address] Morenita Euceda MD Iron and TIBC01/12/20256778Jcgycp93/19/2025 9:15 AM EDTSupport Visit Maternal- Medicine at [facility] [address] [place] [address] Poor growth affecting management of mother in third trimester, fetus 1 of multiple gestation; Monochorionic diamniotic twin gestation in third yvbnnjoni39/19/2025 9:06 AM EDT - 01/11/2025 11:59 PM EDTHospital Encounter [facility] - [facility] US Imaging [address] [place] [address] Monochorionic diamniotic twin gestation in second trimester; Poor growth affecting management of mother in third trimester, fetus 1 of multiple gestation; Velamentous insertion of umbilical cord in third trimester Discharge Disposition: Home01/10/2025 8:30 AM EDTTelemedicine Maternal- Medicine at [facility] [address] [place] [address] Jefferson Garcia MD Monochorionic diamniotic twin gestation in second trimester (Primary Dx); Poor growth affecting management of mother in third trimester, single or unspecified fetus01/09/20254038Mfvwuv94/15/2025Orders Only [facility]- Medicine at [facility] [address] [place] [address] Kiara Reza, URBAN REDEVELOPMENT SPECIALIST Monochorionic diamniotic twin gestation in second trimester (Primary Dx); Poor growth affecting management of mother in third trimester, fetus 1 of multiple gestation; Velamentous insertion of umbilical cord in third snpzwynji44/14/2025 10:15 AM EDTSupport Visit Maternal- Medicine at [facility] [address] [place] [address] Poor growth affecting management of mother in third trimester, fetus 1 of multiple gestation; Monochorionic diamniotic twin gestation in third xkpveiqtr96/14/2025 8:45 AM EDT - 01/06/2025 11:59 PM EDTHospital Encounter [facility] - [facility] US Imaging [address] [place] [address] Intrauterine growth restriction affecting antepartum care of mother in second trimester, fetus 1 ofmultiple gestation; Monochorionic diamniotic twin gestation in second trimester; Velamentous insertion of umbilical cord in third trimester Discharge Disposition: Home01/06/2025Orders Only [facility]- Medicine at [facility] [address] [place] [address] Geeta Jacobs RN Poor growth affecting management of mother in third trimester, fetus 1 of multiple gestation (Primary Dx); Monochorionic diamniotic twin gestation in third vkadzartn12/13/2025Orders Only [facility]- Medicine at [facility] [address] [place] [address] Tressa Das RN Velamentous insertion of umbilical cord in third trimester (Primary Dx); Monochorionic diamniotic twin gestation in third trimester; Poor growth affecting management of mother in third trimester, fetus 1 of multiple gestation; Poor growth affecting management of mother in third trimester, fetus 2 of multiple brnfnteht79/12/2025Documentation Maternal- Medicine at [facility] [address] [place] [address] Rima Echevarria, MAURICE-CLARE 01/04/20256450Etubzk56/11/2025Telephone [facility] Physicians Obstetrics/Gynecology [address] [place] [address] [address] [place] [address] Herlinda Moreira 12/29/2024 1:00 PM EDTOffice Visit [facility]- [facility] at [facility] [address] [place] [address] Alex Subramanian MD 29 weeks gestation of (Primary Dx); Monochorionic diamniotic twin gestation in third trimester; Poor growth affecting management of mother in third trimester, fetus 1 of multiple iztvmilha40/06/2025 10:47 AM EDT - 12/29/2024 11:59 PM EDTHospital Encounter [facility] US Imaging [address] [place] [address] Intrauterine growth restriction affecting antepartum care of mother in second trimester, fetus 1 ofmultiple gestation; Intrauterine growth restriction affecting antepartum care of mother in second trimester, fetus 2 ofmultiple gestation; Monochorionic diamniotic twin gestation in second trimester Discharge Disposition: Home12/29/2024Orders Only [facility]- Medicine at [facility] [address] [place] [address] Tressa Das RN Intrauterine growth restriction affecting antepartum care of mother in second trimester, fetus 1 ofmultiple gestation (Primary Dx); Monochorionic diamniotic twin gestation in second trimester; Velamentous insertion of umbilical cord in third ogzpqdwis54/06/2025Orders Only Maternal- Medicine at [facility] [address] [place] [address] Tressa Das RN Intrauterine growth restriction affecting antepartum care of mother in second trimester, fetus 1 ofmultiple gestation (Primary Dx); Monochorionic diamniotic twin gestation in second trimester; Velamentous insertion of umbilical cord in third dyskggocx38/04/2025Travel 12/20/2024 2:54 PM EDT - 12/20/2024 11:59 PM EDTHospital Encounter [facility] US Imaging [address] [place] [address] Intrauterine growth restriction affecting antepartum care of mother in second trimester, fetus 1 ofmultiple gestation; Intrauterine growth restriction affecting antepartum care of mother in second trimester, fetus 2 ofmultiple gestation; Monochorionic diamniotic twin gestation in second trimester Discharge Disposition: Homefrom Last 3 Months Immunizations No known immunizations Family History Medical HistoryRelationNameCommentsEarly deathFatherJoel KoonceunknownHeart diseaseFatherJoel KoonceHypertensionFatherJoel KoonceStrokeFatherJoel Jeanie CancerMaternal Aunt 1DepressionMaternal Aunt 2Claudia DavisMiscarriages / StillbirthsMaternal Aunt 2Claudia DavisUterine cancerMaternal Aunt 3Sue Mohit DiabetesMaternal GrandfatherMadaline FreehHeart diseaseMaternal Grandfather Garima FreehBrain cancerMaternal GrandmotherMadaline FreehBreast cancer Maternal GrandmotherMadaline FreehDepressionMaternal GrandmotherMadaline Freeh HypertensionMaternal GrandmotherMadaline FreehLung cancerMaternal Grandmother Garima FreehVision lossMaternal GrandmotherMadaline FreehDepressionMaternal Uncle 1Bobby DruckenmillerDepressionMaternal Uncle 2Billy Druckenmiller DepressionMotherKellie KoonceHypertensionMotherKellie KoonceHeart disease Paternal GrandfatherKoonceLung cancerPaternal GrandmotherShirley KoonceRelation NameStatusCommentsFatherJoel KoonceAliveMaternal Aunt 1Maternal Aunt 2Claudia DavisAliveMaternal Aunt 3Sue DavisAliveMaternal GrandfatherMadaline Freeh Maternal GrandmotherMadaline FreehAliveMaternal Uncle 1Bobby DruckenmillerAlive Maternal Uncle 2Billy DruckenmillerAliveMotherKellie KoonceAlivePaternal GrandfatherKooncePaternal GrandmotherShirbeatriz Swift Social History Tobacco UseTypesPacks/DayYears UsedDateSmoking Tobacco: NeverSmokeless Tobacco: Never Tobacco Cessation:Counseling Given: Not Answered Alcohol UseStandard Drinks/WeekCommentsNot Currently0 (1 standard drink = 0.6 oz pure alcohol)[facility] UtilitiesAnswerDate RecordedIn the past 12 months has the electric, gas, oil, or water company threatened to shut off services in your home?No11/07/2024PHQ-2AnswerDate RecordedTotal Hboke876PRAPARE - TransportationAnswerDate RecordedIn the past 12 months, [...] heating?Not hard at all03/16/2025Edinburgh Depression ScaleAnswerDate Recorded [place] Depression Scale Mibei386The thought of harming myself has occurred to me.Never03/16/2025Housing InstabilityAnswerDate Recorded Are you worried or concerned that in the next two months you may not have stable housing that you own, rent or stay in as a part of a household?No11/07/2024 ChildcareAnswerDate RecordedDo problems getting children's ministries director make it difficult for you to work or study?No03/16/2025EmploymentAnswerDate RecordedEmploymentUnknown 11/04/2018Hunger ScreeningAnswerDate RecordedWithin the past 12 months we worried whether our food would run out before we got money to buy more.Never True03/18/2025Within the past 12 months the food we bought just didn't last and we didn't have money to get more.Never True03/18/2025Purpose - LifeAnswerDate RecordedPurpose and direction in zdkvGhvltkt43/11/2021CommentsNoSex and Gender InformationValueDate RecordedSex Assigned at BirthNot on fileLegal Sex Piqdij9212/29/2014 11:52 AM EDTGender VaqyyywqQhgslv41/12/2025 7:53 AM EDTSexual OrientationNot on file Last Filed Vital Signs Vital SignReadingTime TakenCommentsBlood Uigxirvt246/8810 11:21 AM EDT Buxcz830302/28/2025 3:27 PM HJHVmucjymckhl61.9 ??C (98.4 ??F)02/01/2025 7:15 AM EDTRespiratory Hhrs381002/01/2025 7:15 AM EDTOxygen Iqchofezbc891%01/31/2025 2:30 AM EDTInhaled Oxygen Concentration--Kytwua08 kg (141 lb)03/18/2025 11:21 AM EDT Hcisko869.5 cm (5' 2 )03/18/2025 11:21 AM EDTBody Mass Index25.7903/18/2025 11:21 AM EDT Plan of Treatment Health MaintenanceDue DateLast DoneCommentsAdult BMI Follow Up Plan08/06/2013 DTaP,Tdap and Td Vaccines (7 - Td or Tdap)/06/2012, 08/28/2000, 12/27/1996, Additional history existsInfluenza Dnmbuuh00/, 03/10/2018, 03/05/2017, Additional history existsDepression Fccemydwy66/22/2026 03/16/2025, 03/16/2025dult BMI Ilslcnuid96Tobacco Screening Pap Smear, 02/23/2024 Medical Devices Not on file Procedures Procedure NamePriorityDate/TimeAssociated DiagnosisCommentsURINE CULTURERoutine 02/28/2025 4:39 PM EDT Dysuria VAGINITIS PANEL LBFDdpcqiu51/06/2025 3:35 PM EDT Yeast infection of the vagina BLOOD GAS, ARTERIAL, MRGIZkaykzl53/08/2025 9:04 AM EDT BLOOD GAS, VENOUS, YUCQEskppek39/08/2025 9:00 AM EDT VAGINAL DELIVERY IN OR01/31/2025 8:01 AM EDTANESTHESIA EPIDURAL BLOCKRoutine 01/31/2025 1:17 AM EDT EXTRA WDWZlecbag63/07/2025 9:24 AM EDT CBC (NO DIFF)STAT01/30/2025 9:24 AM EDT TYPE AND KDLIGYHbhgjid40/05/2025 7:39 AM EDT EXTRA TUBES SST WUOClioehy82/05/2025 7:38 AM EDT EXTRA TUBES LAVENDER OKWOexuftg09/05/2025 7:38 AM EDT EXTRA TUBES PST TZRMkcjgck70/05/2025 7:38 AM EDT EXTRA JEVBIFmmauow57/05/2025 7:38 AM EDT US MFM LMTD OB, 1 OR MORE QADXJXpsuphu08/04/2025 4:36 PM EDT US MFM LMTD OB, 1 OR MORE HYBTLJesgbst04/02/2025 1:31 PM EDT TYPE AND UEKCVRVvezdye46/01/2025 8:07 AM EDT ECG 12-KOLUXzctfnk21/30/2025 6:33 PM EDT CBC WITH AUTO CXUVGKYGSTYPAiqkmhf92/30/2025 7:06 AM EDT US MFM LMTD OB, 1 OR MORE BCWEEGbmwaaz48/29/2025 11:24 AM EDT BEDSIDE MERDUYEOodwfaa45/27/2025 9:06 AM EDT BEDSIDE JGISTDUHbcqwdo34/27/2025 6:31 AM EDT BEDSIDE TSXJXPRGrljtmj37/26/2025 6:37 PM EDT BEDSIDE VVUUWJWQryxcch73/26/2025 11:14 AM EDT BEDSIDE ZKLPNZLEjpzzde23/26/2025 5:55 AM EDT BEDSIDE QFKQQOJKqgfxay08/25/2025 9:36 PM EDT BEDSIDE PCWPKPOHylugtf51/25/2025 5:00 PM EDT BEDSIDE HQGXESNYkpokpj99/25/2025 12:12 PM EDT US MFM OB FOLLOW-UP, 1 EPJDIXfvdban61/25/2025 12:08 PM EDT BEDSIDE TEBZRVLRvqzsyj78/25/2025 5:28 AM EDT BEDSIDE GKDHBDQKuljxxv96/24/2025 11:02 PM EDT CHLAMYDIA/GC BY PCR CLARITZA LHFZQULB78/24/2025 7:06 AM EDT EXTRA TUBES PST KXKAxncuca11/24/2025 6:54 AM EDT TYPE AND BYWPLHQVAC23/24/2025 6:54 AM EDT EXTRA IQAQZWhgypfx16/24/2025 6:54 AM EDT CBC WITH AUTO EJEFYWFVPYNIHMUA75/24/2025 6:54 AM EDT SYPHILIS TOTAL(UNKNOWN SYPHILIS STATUS)Clvqajh0801/16/2025 6:54 AM EDT FENTANYL, URINE GXDOIQZTTVFAFVE40/24/2025 6:49 AM EDT DRUG SCREEN, BZNZQNWVJ46/24/2025 6:49 AM EDT VAGINITIS PANEL IUCGtlhgdl17/24/2025 6:49 AM EDT STREP B PCR PCR VAG/RXJZPpexsvm71/24/2025 6:49 AM EDT NONSTRESS NCGEKbaifhm09/22/2025 4:19 PM EDT Poor growth affecting management of mother in third trimester, fetus 1 of multiple gestation Monochorionic diamniotic twin gestation in third trimester MRPTYIQhhesua10/22/2025 11:04 AM EDT Monochorionic diamniotic twin gestation in third trimester VITAMIN V11Ddovguw32/22/2025 11:04 AM EDT Monochorionic diamniotic twin gestation in third trimester YXZHJBTAGubcegt02/22/2025 11:04 AM EDT Monochorionic diamniotic twin gestation in third trimester IRON AND FRZPZotfhjq36/22/2025 11:04 AM EDT Monochorionic diamniotic twin gestation in third trimester CBC (NO DIFF)Jdpciyn1101/14/2025 11:04 AM EDT Monochorionic diamniotic twin gestation in third trimester US MFM AMNIOTIC FLUID VOLUME KSAQPVDJCPFdqqyeu99/22/2025 9:26 AM EDT Intrauterine growth restriction affecting antepartum care of mother in second trimester, fetus 1 ofmultiple gestation Monochorionic diamniotic twin gestation in second trimester Velamentous insertion of umbilical cord in third trimester US [facility] LMTD OB, 1 OR MORE OMDUSExozejc98/19/2025 10:59 AM EDT Monochorionic diamniotic twin gestation in second trimester Poor growth affecting management of mother in third trimester, fetus 1 of multiple gestation Velamentous insertion of umbilical cord in third trimester NONSTRESS WALSIjditgk63/19/2025 Poor growth affecting management of mother in third trimester, fetus 1 of multiple gestation Monochorionic diamniotic twin gestation in third trimester NONSTRESS CNVSFpnyqbz52/15/2025 8:42 AM EDT Poor growth affecting management of mother in third trimester, fetus 1 of multiple gestation Monochorionic diamniotic twin gestation in third trimester US [facility] LMTD OB, 1 OR MORE FMLYAXdfmivp84/14/2025 12:56 PM EDT Intrauterine growth restriction affecting antepartum care of mother in second trimester, fetus 1 ofmultiple gestation Monochorionic diamniotic twin gestation in second trimester Velamentous insertion of umbilical cord in third trimester [facility] OB FOLLOW-UP, 1 MCPXYIteirck70/06/2025 12:59 PM EDT Intrauterine growth restriction affecting antepartum care of mother in second trimester, fetus 1 ofmultiple gestation Intrauterine growth restriction affecting antepartum care of mother in second trimester, fetus 2 ofmultiple gestation Monochorionic diamniotic twin gestation in second trimester US [facility] LMTD OB, 1 OR MORE JBKGYOgmixxv54/28/2025 3:58 PM EDT Intrauterine growth restriction affecting antepartum care of mother in second trimester, fetus 1 ofmultiple gestation Intrauterine growth restriction affecting antepartum care of mother in second trimester, fetus 2 ofmultiple gestation Monochorionic diamniotic twin gestation in second trimester from Last 3 Months Results * Urine culture (02/28/2025 4:39 PM EDT)ComponentValueRef RangeTest Method Analysis TimePerformed AtPathologist SignatureCULTURE RESULTSNO GROWTH AT <1000 CFU/mL03/01/2025 6:[address] [facility] LABORATORYSpecimen (Source)Anatomical Location / LateralityCollection Method / VolumeCollection TimeReceived TimeUrineUrine specimen collection, clean catch / Unknown 02/28/2025 4:39 PM EDT1 4:40 PM EDT Narrative Authorizing ProviderResult TypeResult StatusTiffany Andreas Powers MDMICROBIOLOGY - GENERAL ORDERABLESFinal ResultPerforming OrganizationAddressCity/State/ZIP Code Phone Number [facility] [address] [place] [address], * Vaginitis Panel PCR (02/28/2025 3:35 PM EDT) Only the most recent of2 resultswithin the time period is included. ComponentValueRef RangeTest MethodAnalysis TimePerformed AtPathologist Signature BACT. VAGINOSIS DNANot DetectedNot Yheglgpp54/07/2025 10:[address] [facility] LABORATORYComment:Qualitative results are reported based on detection and quantitation of targeted organism markers which include: Lactobacillus spp. (L. crispatus and L. jensenii), Gardnerella vaginalis, Atopobium vaginae, Bacterial Vaginosis Associated Bacteria-2 (BVAB-2) and Megasphaera-1.[place] SPECIES DNANot DetectedNot Afekfyhm27/07/2025 10:39 AM EDT [facility] LABORATORYComment:[place] species not detected include: C. albicans, C. tropicalis, C. parapsilosis or C. dubliniensis.[place] KRUSEI DNANot DetectedNot Rlfukwzu50/07/2025 10:[address] [facility] [facility] LABORATORYComment:No [place] krusei detected.[place] GLABRATA DNANot DetectedNot Vkruijbt97/07/2025 10:[address] [facility] LABORATORYComment:No [place] glabrata detected.TRICHOMONAS VAG DNANot DetectedNot Ycydpxsn55/07/2025 10:[address] [facility] LABORATORYComment: No Trichomonas vaginalis detected. BD MAX Vaginal Panel has not been evaluated for patients under 18 years old. Results for these patients should be reviewed and assessed in accordance with clinical presentation to determine patient diagnosis. Specimen (Source)Anatomical Location / LateralityCollection Method / Volume Collection TimeReceived TimeSwabVaginal structure / Xcdrhfh0902/28/2025 3:35 PM EDT1 3:35 PM EDT Narrative Authorizing ProviderResult TypeResult StatusTifxander Powers MDMICROBIOLOGY - GENERAL ORDERABLESFinal ResultPerforming OrganizationAddressCity/State/ZIP Code Phone Number [facility] [address] [place] [address], [place] [phone] * (ABNORMAL) Cord Arterial Blood Gas (01/31/2025 9:04 AM EDT)ComponentValueRef RangeTest MethodAnalysis TimePerformed AtPathologist SignatureSample type UMBILICAL CORD01/31/2025 9:17 AM [facility] LABORATORYpH, Arterial Cord7.9080201/31/2025 9:17 AM [facility] LABORATORYpCO2, Arterial Cord 48.7zoIO5301/31/2025 9:17 AM [facility] LABORATORYpO2, Arterial Cord14 mmHG01/31/2025 9:17 AM [facility] LABORATORYBase, Deficit-6.0(L)0.0 - 2.0 mmol/L01/31/2025 9:17 AM [facility]%O2 Saturation, Cord Mhuqebmk58.009 9:17 AM [facility] LABORATORYAllen's testN/A 01/31/2025 9:17 AM [facility] LABORATORYSample siteArt Cord01/31/2025 9:17 AM [facility] LABORATORYSource Of OxygenRoom Air01/31/2025 9:17 AM [facility] LABORATORYSpecimen (Source)Anatomical Location / LateralityCollection Method / VolumeCollection TimeReceived TimeUMBILICAL CORD Tongue structure / Nsdbrqm9401/31/2025 9:04 AM EDT01/31/2025 9:17 AM EDT Narrative Authorizing ProviderResult TypeResult StatusTifxander Powers MDLAB BLOOD ORDERABLESFinal ResultPerforming OrganizationAddressCity/State/ZIP CodePhone Number [facility] [address] [place] [address], [place] * (ABNORMAL) Cord Venous Blood Gas (01/31/2025 9:00 AM EDT)ComponentValueRef RangeTest MethodAnalysis TimePerformed AtPathologist SignatureSample type UMBILICAL CORD01/31/2025 9:17 AM [facility] LABORATORYpH, Cord Venous 7.3995901/31/2025 9:17 AM [facility] JMHMURXHGCPAO301.309 9:17 AM [facility] RJPDRKZLKYPX515(L)22 - 3509 9:17 AM [facility] LABORATORYBase, Deficit-5.0(L)0.0 - 2.0 mmol/L01/31/2025 9:17 AM EDT [facility] LABORATORYHCO3, Venous Ezro60kbch/L01/31/2025 9:17 AM EDT [facility] DZUNVCFVKOV104.0%01/31/2025 9:17 AM [facility] LABORATORYAllen's testN/A001/31/2025 9:17 AM [facility] Sample siteVen Cord01/31/2025 9:17 AM [facility] LABORATORYSource Of OxygenRoom Air01/31/2025 9:17 AM [facility] LABORATORYSpecimen (Source)Anatomical Location / LateralityCollection Method / VolumeCollection TimeReceived TimeUMBILICAL CORDTongue structure / Rxuzvpa7101/31/2025 9:00 AM EDT01/31/2025 9:17 AM EDT Narrative Authorizing ProviderResult TypeResult StatusTifxander Powers MDLAB BLOOD ORDERABLESFinal ResultPerforming OrganizationAddressCity/State/ZIP CodePhone Number [facility] [address] [place] [address], * PM EPIDURAL (01/31/2025 1:17 AM EDT) Narrative Javed Hobbs APRN-CRNA - 01/31/2025 1:17 AM EDT MICHAEL Mckeon 01/31/2025 1:18 AM Procedure: Epidural Block Patient Location: ??OB Start Time: ??01/30/2025 12:55 AM End Time: ??01/31/2025 1:04 AM IV In situ: Peripheral ?? General Information and Staff: Service Provider: ??Rohan Paris MD KILN STACKER: ??MICHAEL Mckeon Placed By: MICHAEL Mckeon Checklist: Patient Identified, IV Checked, Risks and Benefits Discussed, Surgical Consent, Monitors and Equipment Checked, Pre-op Evaluation and Timeout Performed Fire Risk Assessment Score: 0 Epidural: Patient Position: ??Sitting Prep: Chlorhexidine and Isopropyl Alcohol, Patient Draped and Maximum Sterile Barriers Used ?? Monitoring: ??Heart Rate, Monitor, Blood Pressure and Continuous Pulse Ox Oxygen Source: ??Room Air Approach: ??Midline Location: ??L4-L5 Injection Technique: ??LULY w/Air Injection Method: Catheter Secured with: Transparent Dressing and Taped Dressing Type: Tape Local Infiltration: ??Lidocaine 1% Dose: ??3 mL Needle and Epidural Catheter: Needle Type: ??Tuohy Needle Gauge: ??17 G Needle Length: ??9 cm OR LULY: 5 Catheter Type: ??Side Hole Catheter Size: ??20 G Catheter at Skin Depth: ??11 cm Number of Attempts: ??1 Test Dose: Negative and Lidocaine 1.5% with Epinephrine 1:200,000 Dose: ??3 mL Date and Time Given: 01/31/2025 1:04 AM Patient Tolerance: Tolerated Well Injection Assessment: ??Negative Aspiration for Blood, No Paresthesia on Injection, Negative CSF flow and Negative for S/S of Intravenous or Intrathecal Injection Authorizing ProviderResult TypeResult StatusShvarunef Christopher Paris MDANESTHESIA ORDERABLESFinal Result * Extra SST (01/30/2025 9:24 AM EDT)ComponentValueRef RangeTest MethodAnalysis TimePerformed AtPathologist SignatureExtra TubeAuto Uaukdagy66/07/2025 11:[address] [facility] LABORATORYSpecimen (Source)Anatomical Location / LateralityCollection Method / VolumeCollection TimeReceived TimeBloodVenous blood / Ukykhtd4101/30/2025 9:24 AM EDT01/30/2025 9:38 AM EDT Narrative Authorizing ProviderResult TypeResult StatusTifxander Powers MDLAB BLOOD ORDERABLESFinal ResultPerforming OrganizationAddressCity/State/ZIP CodePhone Number [facility] [address] [place] [address], * (ABNORMAL) CBC without diff (01/30/2025 9:24 AM EDT) Only the most recent of2 resultswithin the time period is included. ComponentValueRef RangeTest MethodAnalysis TimePerformed AtPathologist Signature WBC13.8(H)4 - 11 x10E9/L01/30/2025 9:[address] [facility] LABORATORYRBC Count3.833.8 - 5.2 X10E12/L01/30/2025 9:[address] [facility] HAPAZAXEIMDheleztwzw69.0(L)11.7 - 15.5 g/dL01/30/2025 9:[address] [facility] FMBZDFUFQNKufoklezuj23.7(L)35 - 47 %01/30/2025 9:45 AM EDT [facility] XGLGECQRHCDJZ1947 - 100 fL01/30/2025 9:[address] [facility] OJUWNJKJZJGIF78.727 - 34 pg01/30/2025 9:[address] [facility] LRPTTUAKBTHFJT12.632 - 36 g/dL01/30/2025 9:[address] [facility] NKLJCLNEBKJMT33.111.5 - 15 %01/30/2025 9:[address] [facility] LABORATORYPlatelet Zgqdh981658 - 450 X10E9/L01/30/2025 9:[address] [facility] LABORATORYMPV7.77 - 12 fL01/30/2025 9:45 AM EDT [facility] LABORATORYSpecimen (Source)Anatomical Location / LateralityCollection Method / VolumeCollection TimeReceived TimeBloodVenous blood / UnknownVenipuncture / Fywlzyn9701/30/2025 9:24 AM EDT01/30/2025 9:36 AM EDT Narrative Authorizing ProviderResult TypeResult StatusKassidy Rejent MDLAB BLOOD ORDERABLESFinal ResultPerforming OrganizationAddressCity/State/ZIP CodePhone Number [facility] [address] [place] [address], * Type and screen(includes indirect pedro) (01/28/2025 7:39 AM EDT) Only the most recent of3 resultswithin the time period is included. ComponentValueRef RangeTest MethodAnalysis TimePerformed AtPathologist Signature ABOA01/28/2025 9:27 AM [facility] DNKNJTOEQGLDJtsacxgc39/05/2025 9:27 AM [facility] LABORATORYAntibody SdmatwDxoffhuf71/05/2025 9:27 AM [facility] LABORATORYSpecimen (Source)Anatomical Location / LateralityCollection Method / VolumeCollection TimeReceived TimeBloodVenous blood / Unknown Venipuncture / Xawxccw6001/28/2025 7:39 AM EDT01/28/2025 8:07 AM EDT Narrative Authorizing ProviderResult TypeResult StatusJesarthak Preciado MDBLOOD BANK TEST ORDERABLESEdited Result - FinalPerforming OrganizationAddressCity/State/ZIP CodePhone Number [facility] [address] [place] [address], [facility] [address] [place] [address], * SST TOP (01/28/2025 7:38 AM EDT)ComponentValueRef RangeTest MethodAnalysis TimePerformed AtPathologist SignatureExtra TubeAuto Zxooabor35/05/2025 9:[address] [facility] LABORATORYSpecimen (Source)Anatomical Location / LateralityCollection Method / VolumeCollection TimeReceived TimeBloodVenous blood / Pochcok4601/28/2025 7:38 AM EDT01/28/2025 8:37 AM EDT Narrative Authorizing ProviderResult TypeResult StatusTifxander Powers MDLAB BLOOD ORDERABLESFinal ResultPerforming OrganizationAddressCity/State/ZIP CodePhone Number [facility] [address] [place] [address], * Lavender Top (01/28/2025 7:38 AM EDT)ComponentValueRef RangeTest Method Analysis TimePerformed AtPathologist SignatureExtra TubeAuto Resulted 01/28/2025 9:[address] [facility] LABORATORYSpecimen (Source) Anatomical Location / LateralityCollection Method / VolumeCollection Time Received TimeBloodVenous blood / Uftpfxu4101/28/2025 7:38 AM EDT01/28/2025 8:37 AM EDT Narrative Authorizing ProviderResult TypeResult StatusTifxander Powers MDLAB BLOOD ORDERABLESFinal ResultPerforming OrganizationAddressCity/State/ZIP CodePhone Number [facility] [address] [place] [address], * PST TOP (01/28/2025 7:38 AM EDT) Only the most recent of2 resultswithin the time period is included. ComponentValueRef RangeTest MethodAnalysis TimePerformed AtPathologist Signature Extra TubeAuto Lgqdayzd28/05/2025 9:[address] [facility] Specimen (Source)Anatomical Location / LateralityCollection Method / Volume Collection TimeReceived TimeBloodVenous blood / Eqkxocl5501/28/2025 7:38 AM EDT 01/28/2025 8:37 AM EDT Narrative Authorizing ProviderResult TypeResult StatusTifxander CONNORS BLOOD ORDERABLESFinal ResultPerforming OrganizationAddressCity/State/ZIP CodePhone Number [facility] [address] [address] [place] [address], * MFM LMTD OB, 1 OR MORE FETUS (01/27/2025 4:36 PM EDT) Only the most recent of9 resultswithin the time period is included. Anatomical RegionLateralityModalityOB-GYNUltrasoundSpecimen (Source)Anatomical Location / LateralityCollection Method / VolumeCollection TimeReceived Time 01/27/2025 3:47 PM EDT Narrative 01/28/2025 10:49 AM EDT NAME: ??ALIVIA HARTMAN : 1995 SEX: F Accession Number: [id number] ORDERING PHYSICIAN: CHARLIE SCHMIDT REFERRING PHYSICIAN: VIC MCKEON Coding Procedures ? 81910: Limited OB / NATHAN, 1 or More Fetuses ? 53955: Doppler velocimetry, ; umbilical artery. 2 ? 25631: Doppler velocimetry, ; middle cerebral artery. 2 ? 82427: Doppler Ductus Venosus. 2 STAT Patient Location: Inpatient Indication [place]-Di twin , IUGR-Poor growth-twin A, Supervision of high risk . History OB History ? 1. Para 0 ? [id number] Maternal Assessment Physical Exam ??Height 157 cm, 5 ft 2 in. Initial weight 64 kg, 141 lb. Initial BMI 25.79 kg/m?? Method Transabdominal ultrasound examination. Twin . Number of fetuses: 2. Monochorionic-diamniotic Dating LMP on: ?06/08/2024 GA by LMP ?33 w + 2 d VICTOR M by LMP: ?03/15/2025 Assigned: ?based on the LMP, selected on 09/27/2024 Assigned GA (weeks days) ? 33 w + 2 d Assigned VICTOR M: ??03/15/2025 Fetus A: General Evaluation Cardiac activity Present. FHR 144 bpm. Presentation: cephalic, lower right Placenta: Placental site: posterior, previously documented away from cervical os Umbilical cord: Cord vessels: 3 vessel cord Amniotic fluid: Amount of AF: normal amount. MVP 3.1 cm Fetus B: General Evaluation Cardiac activity Present. FHR 141 bpm. Presentation: breech, upper left Placenta: Placental site: posterior, previously documented away from cervical os Umbilical cord: Cord vessels: 3 vessel cord Amniotic fluid: Amount of AF: normal amount. MVP 3.8 cm Fetus A: Anatomy The following structures appear normal: Abdomen: Stomach. Bladder. Fetus B: Anatomy The following structures appear normal: Abdomen ?Stomach. Bladder. Fetus A: Doppler Umbilical Artery: normal PI ?1.13 ?? 93% ? Ebbing PS ?-37.19 cm/s TAmax ??-22.60 ??cm/s MD ?-12.22 cm/s S / D ??3.09 ?76% ? Kiran Mid Cerebral Artery: normal PI 1.33 <1% Ebbing RI ?0.72 ?? 24% ? Deja PS ?62.94 ??cm/s PS ?1.33 ?? MoM ED ?17.78 ??cm/s TAmax 33.95 cm/s >99% Ebbing CPR PI 1.18 <1% Ebbing Fetus B: Doppler Umbilical Artery: normal PI ?1.14 ?? 94% ? Ebbing PS ?51.48 ??cm/s ?64% ? Ebbing TAmax ??31.93 ?? cm/s ?50% ? Ebbing MD ?19.86 ??cm/s S / D ??3.19 ?81% ? Kiran Mid Cerebral Artery: normal PI ?1.79 ?? 18% ? Ebbing RI ?0.81 ?? 70% ? Bahlmann PS ?56.36 ??cm/s PS ?1.20 ?? MoM ED ?10.43 ??cm/s TAmax ??25.60 ?? cm/s ?83% ? Ebbing CPR PI 1.57 ?4% ?Ebbing Maternal Structures Uterus Visualized Cervix Suboptimal ? Approach - Transabdominal Right Ovary ?Not visualized Left Ovary ? Not visualized Cul de Sac ? Suboptimal Impression Monochorionic-diamniotic twin at 33w2d gestation. Twin A is cephalic, lower right with known FGR. Amniotic fluid MVP measures 3.1 cm. bladder and stomach are visualized. Umbilical artery S/D ratio in normal range. MCA PSV is in the unremarkable range for the evaluation of anemia. Ductus venosus demonstrates continuous forward flow. Previously suspected velamentous vs marginal cord insertion was not evaluated on today's exam. Twin B is breech, upper left. Amniotic fluid MVP measures 3.8 cm. bladder and stomach are visualized. Umbilical artery S/D ratio in normal range. MCA PSV is in the unremarkable range for the evaluation of anemia. Ductus venosus demonstrates continuous forward flow. There is no evidence of twin-twin transfusion syndrome or twin anemia polycythemia sequence. Recommendations Please see [facility] recommendations from prior clinical and/or ultrasound report documentation. Subsequent follow up or other follow up as clinically determined by primary OB provider unless otherwise specified by M. Results forwarded to ordering provider so they can follow up with the patient as necessary. Procedure Note Gracy Woodall MD - 01/28/2025 NAME: ALIVIA HARTMAN : 1995 SEX: F Accession Number: [id number] ORDERING PHYSICIAN: CHARLIE SCHMIDT REFERRING PHYSICIAN: VIC MCKEON Coding Procedures 40564: Limited OB / NATHAN, 1 or More Fetuses 65084: Doppler velocimetry, ; umbilical artery. 2 20170: Doppler velocimetry, ; middle cerebral artery. 2 26668: Doppler Ductus Venosus. 2 STAT Patient Location: Inpatient Indication [place]-Di twin , IUGR-Poor growth-twin A, Supervision of highrisk . History OB History 1. Para 0 [id number] Maternal Assessment Physical Exam Height 157 cm, 5 ft 2 in. Initial weight 64 kg, 141 lb.Initial BMI 25.79 kg/m?? Method Transabdominal ultrasound examination. Twin . Number of fetuses: 2. Monochorionic-diamniotic Dating LMP on: 06/08/2024 GA by LMP 33 w + 2 d VICTOR M by LMP: 03/15/2025 Assigned: based on the LMP, selected on 09/27/2024 Assigned GA (weeks days) 33 w + 2 d Assigned VICTOR M: 03/15/2025 Fetus A: General Evaluation Cardiac activity Present. FHR 144 bpm. Presentation: cephalic, lowerright Placenta: Placental site: posterior, previously documented away fromcervical os Umbilical cord: Cord vessels: 3 vessel cord Amniotic fluid: Amount of AF: normal amount. MVP 3.1 cm Fetus B: General Evaluation Cardiac activity Present. FHR 141 bpm. Presentation: breech, upper left Placenta: Placental site: posterior, previously documented away fromcervical os Umbilical cord: Cord vessels: 3 vessel cord Amniotic fluid: Amount of AF: normal amount. MVP 3.8 cm Fetus A: Anatomy The following structures appear normal: Abdomen: Stomach. Bladder. Fetus B: Anatomy The following structures appear normal: Abdomen Stomach. Bladder. Fetus A: Doppler Umbilical Artery: normal PI 1.13 93% Ebbing PS -37.19 cm/s TAmax -22.60 cm/s MD -12.22 cm/s S / D 3.09 76% Kiran Mid Cerebral Artery: normal PI 1.33 <1% Ebbing RI 0.72 24% Bahlmann PS 62.94 cm/s PS 1.33 MoM ED 17.78 cm/s TAmax 33.95 cm/s >99% Ebbing CPR PI 1.18 <1% Ebbing Fetus B: Doppler Umbilical Artery: normal PI 1.14 94% Ebbing PS 51.48 cm/s 64% Ebbing TAmax 31.93 cm/s 50% Ebbing MD 19.86 cm/s S / D 3.19 81% Kiran Mid Cerebral Artery: normal PI 1.79 18% Ebbing RI 0.81 70% Bahlmann PS 56.36 cm/s PS 1.20 MoM ED 10.43 cm/s TAmax 25.60 cm/s 83% Ebbing CPR PI 1.57 4% Ebbing Maternal Structures Uterus Visualized Cervix Suboptimal Approach - Transabdominal Right Ovary Not visualized Left Ovary Not visualized Cul de Sac Suboptimal Impression Monochorionic-diamniotic twin at 33w2d gestation. Twin A is cephalic, lower right with known FGR. Amniotic fluid MVP measures 3.1 cm. bladder and stomach are visualized. Umbilical artery S/D ratio in normal range. MCA PSV is in the unremarkable range for the evaluation of anemia. Ductus venosus demonstrates continuous forward flow. Previously suspected velamentous vs marginal cord insertion was notevaluated on today's exam. Twin B is breech, upper left. Amniotic fluid MVP measures 3.8 cm. bladder and stomach are visualized. Umbilical artery S/D ratio in normal range. MCA PSV is in the unremarkable range for the evaluation of anemia. Ductus venosus demonstrates continuous forward flow. There is no evidence of twin-twin transfusion syndrome or twin anemia polycythemia sequence. Recommendations Please see [facility] recommendations from prior clinical and/or ultrasoundreport documentation. Subsequent follow up or other follow up as clinically determined byprimary OB provider unless otherwise specified by [facility]. Results forwarded to ordering provider so they can follow up with thepatient as necessary. Authorizing ProviderResult TypeResult StatusLaura Schmidt DOIMG ORDERABLESFinal Result * ECG 12 lead (01/22/2025 6:33 PM EDT)Specimen (Source)Anatomical Location / LateralityCollection Method / VolumeCollection TimeReceived Time01/22/2025 6:33 PM EDT Narrative [facility] - 01/26/2025 8:58 PM EDT Authorizing ProviderResult TypeResult StatusDiana Lucius MDECG ORDERABLES Final ResultPerforming OrganizationAddressCity/State/ZIP CodePhone Number [facility] * (ABNORMAL) CBC auto differential (01/22/2025 7:06 AM EDT) Only the most recent of2 resultswithin the time period is included. ComponentValueRef RangeTest MethodAnalysis TimePerformed AtPathologist Signature WBC11.04 - 11 x10E9/L01/22/2025 7:[address] [facility] RBC Count4.003.8 - 5.2 X10E12/L01/22/2025 7:[address] [facility] YVYDPBXLVVOhfrsrwlgy61.6(L)11.7 - 15.5 g/dL01/22/2025 7:[address] [facility] OJAXVDQDPPRfokkoiido66.9(L)35 - 47 %01/22/2025 7:[address] [facility] IBNITEXHCNLMP3579 - 100 fL01/22/2025 7:[address] [facility] ZBABCRIXQHFPD73.927 - 34 pg01/22/2025 7:[address] [facility] JUYSWIQRFEOXAP52.232 - 36 g/dL01/22/2025 7:[address] [facility] ARMEXDPEVPWID05.611.5 - 15 %01/22/2025 7:[address] [facility] LABORATORYPlatelet Nqkhz919124 - 450 X10E9/L01/22/2025 7:[address] [facility] LABORATORYMPV7.77 - 12 fL01/22/2025 7:46 AM EDT [facility] LABORATORYNeutrophils %74.9%01/22/2025 7:46 AM EDT [facility] LABORATORYLymphocytes %15.4%01/22/2025 7:46 AM EDT [facility] LABORATORYMonocytes %8.6%01/22/2025 7:[address] [facility] LABORATORYEosinophils %1.0%01/22/2025 7:[address] [facility] LABORATORYBasophils %0.1%01/22/2025 7:[address] [facility] LABORATORYNeutrophils Absolute (A)8.3(H)1.5 - 6.6 10*3/uL01/22/2025 7:[address] [facility] LABORATORYLymphocytes Absolute1.71.0 - 3.5 10*3/01/22/2025 7:[address] [facility] LABORATORYMonocytes Absolute0.90.0 - 0.9 10*3/01/22/2025 7:[address] [facility] LABORATORYEosinophils Absolute0.10.0 - 0.4 10*3/01/22/2025 7:[address] [facility] LABORATORYBasophils Absolute0.00.0 - 0.2 10*3/01/22/2025 7:[address] [facility] LABORATORYDifferential TypeAUTOMATED QRBAGSOTSFTR57/30/2025 7:[address] [facility] LABORATORYSpecimen (Source)Anatomical Location / LateralityCollection Method / VolumeCollection TimeReceived TimeBloodVenous blood / UnknownVenipuncture / Zijyeup4101/22/2025 7:06 AM EDT01/22/2025 7:27 AM EDT Narrative Authorizing ProviderResult TypeResult StatusHaloleg Grace MDLAB BLOOD ORDERABLESFinal ResultPerforming OrganizationAddressCity/State/ZIP CodePhone Number [facility] [address] [place] [address], * (ABNORMAL) Bedside Glucose *Place/Obtain serum glucose if >500 per glucometer. (01/19/2025 9:06 AM EDT) Only the most recent of10 resultswithin the time period is included. ComponentValueRef RangeTest MethodAnalysis TimePerformed AtPathologist Signature Bedside Glucose (POC)120(H)65 - 99 mg/dL01/19/2025 9:12 AM [facility] LABORATORYSpecimen (Source)Anatomical Location / LateralityCollection Method / VolumeCollection TimeReceived Timearterial/xntoslusu18/27/2025 9:06 AM EDT 01/19/2025 9:12 AM EDT Narrative Authorizing ProviderResult TypeResult StatusTiffany R Gio MDPOINT OF CARE TEST ORDERABLESFinal ResultPerforming OrganizationAddressCity/State/ZIP CodePhone Number [facility] [address] [place] [address], [place] * Chlamydia/GC by PCR Claritza Swab (01/16/2025 7:06 AM EDT)ComponentValueRef Range Test MethodAnalysis TimePerformed AtPathologist SignatureCHLAMYDIA DNA(PCR) EokjajciQcwstczt06/24/2025 3:[address] [facility] Comment:Chlamydia trachomatis not detected by nucleic acid amplification. This does not exclude the possibility of infection because results are dependent on adequate specimen collection.GONORRHOEAE DNA(PCR)MtxzjqllJesmuqul20/24/2025 3:[address] [facility] LABORATORYComment:Neisseria gonorrhoeae not detected by nucleic acid amplification. This does not exclude the possibil ity of infection because results are dependent on adequate specimen collection.Specimen (Source)Anatomical Location / LateralityCollection Method / VolumeCollection TimeReceived TimeSwabVaginal structure / Bphoupw8301/16/2025 7:06 AM EDT01/16/2025 7:24 AM EDT Narrative Authorizing ProviderResult TypeResult StatusTracy Germaine Summers LEARNING DISABILITIES RESOURCE TEACHER-CNMMICROBIOLOGY - GENERAL ORDERABLESFinal ResultPerforming OrganizationAddressCity/State/ZIP CodePhone Number [facility] [address] [place] [address], [place] [phone] * Syphilis Total (Unknown Syphilis Status) (01/16/2025 6:54 AM EDT)Component ValueRef RangeTest MethodAnalysis TimePerformed AtPathologist Signature SYPHILIS TOTAL<0.2<=0.8 AI01/17/2025 9:[address] [facility] LABORATORYSpecimen (Source)Anatomical Location / LateralityCollection Method / VolumeCollection TimeReceived TimeBloodVenous blood / UnknownVenipuncture / Knctegp3701/16/2025 6:54 AM EDT01/16/2025 7:12 AM EDT Narrative [facility] - 01/17/2025 9:16 AM EDT NON REACTIVE No serologic evidence of infection to Treponema pallidum. Repeat testing may be considered in patients with suspected acute or primary syphilis in 2 to 4 weeks. Authorizing ProviderResult TypeResult StatusTracy Germaine Summers APRN-CNMLAB BLOOD ORDERABLESFinal ResultPerforming OrganizationAddressCity/State/ZIP CodePhone Number [facility] [address] [place] [address], * Fentanyl, Urine Qualitative (01/16/2025 6:49 AM EDT)ComponentValueRef Range Test MethodAnalysis TimePerformed AtPathologist SignatureFENTANYL, URINE QUAL. HbnuayfaMtqxvpyd49/24/2025 7:[address] [facility] Specimen (Source)Anatomical Location / LateralityCollection Method / Volume Collection TimeReceived TimeUrineUrine specimen collection, clean catch / Nidtbxc1901/16/2025 6:49 AM EDT01/16/2025 7:16 AM EDT Narrative [facility] - 01/16/2025 7:46 AM EDT Fentanyl screening cutoff = 5ng/ml This report is intended for use in clinical monitoring or management of patients. Authorizing ProviderResult TypeResult StatusTracy Germaine Summers APRN-CNMURINE ORDERABLESFinal ResultPerforming OrganizationAddressCity/State/ZIP CodePhone Number [facility] [address] [place] [address], * Strep B PCR vag/rect (01/16/2025 6:49 AM EDT)ComponentValueRef RangeTest MethodAnalysis TimePerformed AtPathologist SignatureSTREP B PCR VAG/RECT YtqxtsnsSsqurqrm24/24/2025 8:[address] [facility] Specimen (Source)Anatomical Location / LateralityCollection Method / Volume Collection TimeReceived TimeSwab (Vagina/Rectum)01/16/2025 6:49 AM EDT 01/16/2025 7:05 AM EDT Narrative Authorizing ProviderResult TypeResult StatusTracy Germaine Summers LEARNING DISABILITIES RESOURCE TEACHER-CNMMICROBIOLOGY - GENERAL ORDERABLESFinal ResultPerforming OrganizationAddressCity/State/ZIP CodePhone Number [facility] [address] [place] [address], * Drug Screen, Urine (01/16/2025 6:49 AM EDT)ComponentValueRef RangeTest Method Analysis TimePerformed AtPathologist SignatureAMPHETAMINE/METHAMPNegative Finiytwk35/24/2025 7:[address] [facility]: AMPH/METH screening cut off = 1000 ng/mLCOCAINE METABOLITENegativeNegative 01/16/2025 7:[address] [facility] [facility]:Cocaine screening cut off value = 300 ng/qJHAOQHEUAcepazfrIjtagmjg79/24/2025 7:[address] [facility]:Ecstasy screening cut off value = 500 ng/oJPDJRZVDUXEvwgfwjpYxbngedw40/24/2025 7:[address] [facility]:Methadone screening cut off value = 300 ng/mL.OPIATES AwfjqfusTpubokvr48/24/2025 7:[address] [facility] Comment: Opiates screening cut off value = 300 ng/mL This test is used for the detection of codeine, hydrocodone (>1000 ng/mL), morphine and hydromorphone (>900 ng/mL) in urine. SOVHOWOFMJfffluwaZurermed68/24/2025 7:[address] [facility]: Oxycodone screening cut off value = 300 ng/mL This test is used for the detection of oxycodone and oxymorphone in urine. NQNSHUEVZXRYEKoaymdkrSghqqmzd61/24/2025 7:[address] [facility]:Phencyclidine screening cut off value = 25 ng/mLCANNABINOIDS KvxyrwwpCgawfrkj47/24/2025 7:[address] [facility] Comment:Cannabinoids/THC screening cut off value = 50 ng/mLUrine Barbiturates RpripbanUuhkmexv17/24/2025 7:[address] [facility] Comment:Barbiturates screening cut off value = 200 ng/mLBENZODIAZEPINESNegative Wfkyusfu27/24/2025 7:[address] [facility] [facility]: Benzodiazepines screening cut off value = 200 ng/mLSpecimen (Source)Anatomical Location / LateralityCollection Method / VolumeCollection TimeReceived TimeUrine Urine specimen collection, clean catch / Ubngqjc8801/16/2025 6:49 AM EDT01/16/2025 7:16 AM EDT Narrative Authorizing ProviderResult TypeResult StatusTracy L Bartavery LEARNING DISABILITIES RESOURCE TEACHER-CNMURINE ORDERABLESFinal ResultPerforming OrganizationAddressCity/State/ZIP CodePhone Number [facility] [address] [place] [address], * nonstress test - Maternal Medicine (01/14/2025 4:19 PM EDT) Narrative [facility] - 01/14/2025 4:19 PM EDT Patient Name: Minnie Bunch Patient : 1995 NST Objective Findings: Variability: Moderate Decelerations: None Accelerations: Yes Acoustic Stimulator: No Baseline: 130 BPM Uterine Irritability: Yes (patient does not feel) Contractions: Not present Comments: FKC, labor precautions, and bleeding precautions reviewed with patient. Patient verbalizes understanding. Lots audible fm noted. Baby A to RLQ. Baby B to LUQ. Patient drinking cold water and juice. Patient denies uti s/s or abnormal discharge. Patient states she had recent sex. NST Interpretation: Nonstress Test Interpretation: Reactive (Jefferson Garcia MD) Fetus B: Baseline Fetus B: 135 BPM Variability Fetus B: Moderate Accelerations Fetus B: Yes Decelerations Fetus B: Variable Acoustic Stimulator Fetus B: No ?? Fetus B Provider Interpretation: Nonstress Test Interpretation Fetus B: Reactive (Jefferson Garcia MD) ? NST performed by: Isabel Quintero RN ?01/14/2025 ? Authorizing ProviderResult TypeResult StatusAlex Subramanian MDOB GYNE ORDERABLESFinal ResultPerforming OrganizationAddressCity/State/ZIP CodePhone Number [facility] * (ABNORMAL) Iron and TIBC (01/14/2025 11:04 AM EDT)ComponentValueRef RangeTest MethodAnalysis TimePerformed AtPathologist RsgphuatsXHIY77(L)50 - 170 ug/dL 01/14/2025 2:[address] [facility] FZPJCVXVCISARKDOFBVCA926(H)168 - 336 mg/dL01/14/2025 2:[address] [facility] LABORATORYIRON FKSSMZT267(H)250 - 425 ug/dL01/14/2025 2:[address] [facility]ORATORYIRON SATURATION9(L)15 - 50 % TRCAWTEXAF44/22/2025 2:[address] [facility] LABORATORYSpecimen (Source)Anatomical Location / Laterality Collection Method / VolumeCollection TimeReceived TimeBloodVenous blood / UnknownVenipuncture / Drmpqus0801/14/2025 11:04 AM EDT01/14/2025 11:04 AM EDT Narrative Authorizing ProviderResult TypeResult StatusMorenita CONNORS BLOOD ORDERABLESFinal ResultPerforming OrganizationAddressCity/State/ZIP CodePhone Number [facility] [address] [place] [address] [address] [place] [address], * Folate (01/14/2025 11:04 AM EDT)ComponentValueRef RangeTest MethodAnalysis TimePerformed AtPathologist SignatureFOLIC ACID15.1>5.8 ng/mL01/14/2025 2:[address] [facility] LABORATORYSpecimen (Source)Anatomical Location / LateralityCollection Method / VolumeCollection TimeReceived TimeBloodVenous blood / UnknownVenipuncture / Npqlvmt8501/14/2025 11:04 AM EDT01/14/2025 11:04 AM EDT Narrative Authorizing ProviderResult TypeResult StatusSondaniel CONNORS BLOOD ORDERABLESFinal ResultPerforming OrganizationAddressCity/State/ZIP CodePhone Number [facility] [address] [place] [address], * Ferritin (01/14/2025 11:04 AM EDT)ComponentValueRef RangeTest MethodAnalysis TimePerformed AtPathologist BwhvgrpyeEUJORLHG9582 - 307 ng/mL01/14/2025 2:[address] [facility] LABORATORYSpecimen (Source)Anatomical Location / LateralityCollection Method / VolumeCollection TimeReceived TimeBloodVenous blood / UnknownVenipuncture / Pcsbkbz1001/14/2025 11:04 AM EDT01/14/2025 11:04 AM EDT Narrative Authorizing ProviderResult TypeResult StatusSonyoturner Euceda MDLAB BLOOD ORDERABLESFinal ResultPerforming OrganizationAddressCity/State/ZIP CodePhone Number [facility] [address] [place] [address], * Vitamin B12 (01/14/2025 11:04 AM EDT)ComponentValueRef RangeTest Method Analysis TimePerformed AtPathologist SignatureVITAMIN [id number] - 914 pg/mL 01/14/2025 2:[address] [facility]ORATORYSpecimen (Source) Anatomical Location / LateralityCollection Method / VolumeCollection Time Received TimeBloodVenous blood / UnknownVenipuncture / Jottemg2201/14/2025 11:04 AM EDT01/14/2025 11:04 AM EDT Narrative Authorizing ProviderResult TypeResult StatusSonyoturner Raphael-Kirt MDLAB BLOOD ORDERABLESFinal ResultPerforming OrganizationAddressCity/State/ZIP CodePhone Number [facility] [address] [place] [address], * nonstress test - Maternal Medicine (01/11/2025) Narrative [facility] - 01/11/2025 Patient Name: Minnie Bunch Patient : 1995 NST Objective Findings: Variability: Moderate Decelerations: None Accelerations: Yes Acoustic Stimulator: No Baseline: 135 BPM Comments: Early deceleration/variable noted. Tracing reviewed with dr garcia, no new orders. FKC and labor precautions reviewed Fetus B: Baseline Fetus B: 125 BPM Variability Fetus B: Moderate Accelerations Fetus B: Yes Decelerations Fetus B: Variable Acoustic Stimulator Fetus B: No ?? Fetus B Provider Interpretation: Nonstress Test Interpretation Fetus B: Reactive (Jefferson Garcia MD) ? Fetus C Provider Interpretation: Nonstress Test Interpretation Fetus C: Reactive (Jefferson Garcia MD) ? NST performed by: Amy Whitney RN ?01/11/2025 ? 4:08 PM Authorizing ProviderResult TypeResult StatusAlex Subramanian MDOB GYNE ORDERABLESFinal ResultPerforming OrganizationAddressCity/State/ZIP CodePhone Number [facility] * nonstress test - Maternal Medicine (01/07/2025 8:42 AM EDT) Narrative [facility] - 01/07/2025 8:42 AM EDT Patient Name: Minnie Bunch Patient : 1995 NST Objective Findings: Variability: Moderate Decelerations: None Accelerations: Yes Acoustic Stimulator: No Baseline: 135 BPM Uterine Irritability: Yes (patient does not feel) Comments: FKC, labor precautions, and bleeding precautions reviewed with patient. Patient verbalizes understanding. Patient drinking cold water and eating crackers. Patient denies uti s/s, abnormal discharge, or dehydration. Patient states she had recent sex. Audible hiccups noted. Lots audible fm noted. rn readjusting efm as needed. Dr Subramanian notified and reviews tracing. No new orders. NST Interpretation: Nonstress Test Interpretation: Reactive (Alex Subramanian MD) Fetus B: Baseline Fetus B: 130 BPM Variability Fetus B: Moderate Accelerations Fetus B: Yes Decelerations Fetus B: None Acoustic Stimulator Fetus B: No ?? Fetus B Provider Interpretation: Nonstress Test Interpretation Fetus B: Reactive (Alex Subramanian MD) ? NST performed by: Isabel Quintero RN ?01/06/2025 ? Authorizing ProviderResult TypeResult Angus Subrmaanian MDOB GYNE ORDERABLESFinal ResultPerforming OrganizationAddressCity/State/ZIP CodePhone Number [facility] from Last 3 Months Insurance Advance Directives * Full Code (Latest Code Status on File) Date ActivatedDate InactivatedComments01/16/2025 6:43 AM02/01/2025 4:39 PM * Full Code Date ActivatedDate InactivatedComments11/07/2024 9:33 AM11/08/2024 4:22 PM Care Teams Team MemberRelationshipSpecialtyStart DateEnd Date Marlon Laguna MD [address] [place] [address] PCP - GeneralFamily Medicine01/14/25
--- OUTSIDE RECORDS SUMMARY | 2025-03-22 10:16 | XMS_ITS | Patient Health Record ---
Author Organization [facility] in [place] Address [address] [place] [address] Care Team Providers Care Test Rider Name Role Phone Harsh Laguna Primary Care Provider Allergies No Known Allergies Results Component Value Reference Range Notes CBC AUTO DIFF Reviewed date:08/13/2024 04:12:48 PM Interpretation: Performing Lab: Notes/Report: [facility] , White Blood Count 5.9 4.0-11.0 10 3/uL Red Blood Count4.114.20-5.40 10 6/qELgbfloujwk56.412.0-16.0 g/zZFaarikjnfo45.0 36.0-48.0 %Mean Corpuscular Xspvun92.281.0-99.0 fLMean Corpuscular Hemoglobin 30.226.7-34.0 pgMean Corpuscular HGB Conc35.429.9-35.2 g/dLRed Cell Distribution Width12.311.0-15.0 %Platelet Gnxdm323494-388 10 3/uLMean Platelet Volume9.19.5- 13.5 fLNeutrophils Percent Auto73.443.0-75.0 %Lymphocytes Percent Auto18.620.5- 60.0 %Monocytes Percent Auto7.51.7-12.0 %Eosinophils Percent Auto0.30.9-7.0 % Basophils Percent Auto0.00.2-2.0 %Immature Granulocytes Pct Auto0.20.0-0.5 % Neutrophils Absolute Auto4.31.4-6.5 10 3/uLLymphocytes Absolute Auto1.11.2-3.8 10 3/uLMonocytes Absolute Auto0.40.3-0.8 10 3/uLEosinophils Absolute Auto0.00.0- 0.7 10 3/uLBasophils Absolute Auto0.00.0-0.1 10 3/uLImmature Granulocytes Abs Auto0.010.00-0.03 10 3/uLPerforming Lab:see noteML - [facility] LB DRUG SCREEN RAPID (URINE) Reviewed date:08/13/2024 04:12:48 PM Interpretation: Performing Lab: Notes/Report: [facility] ,Cannabinoid Screen UrineNEGATIVENEGATIVEPhencyclidine Screen UrineNEGATIVE NEGATIVECocaine Screen UrineNEGATIVENEGATIVEMethamphetamines Screen Urine NEGATIVENEGATIVEOpiate Screen UrineNEGATIVENEGATIVEAmphetamine Screen Urine NEGATIVENEGATIVEBenzodiazepines Screen UrineNEGATIVENEGATIVETricyclic Antidepressant UrineNEGATIVENEGATIVEMethadone Screen UrineNEGATIVENEGATIVE Barbiturates Screen UrineNEGATIVENEGATIVEOxycodone Screen UrineNEGATIVENEGATIVE Buprenorphine Screen UrineNEGATIVENEGATIVE DRUG CLASS TEST SYSTEM CUT-OFF CONCENTRATIONS ARE FOLLOWS: AMP (Amphetamine): 500 ng/mL BAR (Barbiturates): 200 ng/mL BZO (Benzodiazepines): 150 ng/mL BUP (Buprenorphine): 10 ng/mL CHICHI (Cocaine): 150 ng/mL mAMP (Methamphetamine): 500 ng/mL MTD (Methadone): 200 ng/mL OPI (Opiates): 100 ng/mL OXY (Oxycodone): 100 ng/mL PCP (Phencyclidine): 25 ng/mL THC (Cannabinoids): 50 ng/mL TCA (Trycyclic Antidepressants): 300 ng/mL Performing Lab:see note - [facility] LBGLYCOHEMOGLOBIN A1C Reviewed date:08/13/2024 04:12:48 PM Interpretation: Performing Lab: Notes/Report: [facility] ,Glycohemoglobin A1C5.44.5-6.2 % ADA RECOMMENDED LIMIT 4.0 - 6.0 ADA THERAPEUTIC TARGET < 7.0 ACTION SUGGESTED > 7.0 Estimated Average Nihzbvo604Idyahkytvn Lab:see note - [facility] RUBELLA AB IGG Reviewed date:08/14/2024 11:30:48 AM Interpretation: Performing Lab: Notes/Report: [facility] ,Rubella Antibodies, IgG<0.90Immune >0.99 index Non-immune <0.90 Equivocal 0.90 - 0.99 Immune >0.99 Performed at: [address] [id number] Ground Defence Officer: Gen Oviedo PhD, Phone: [phone] Performing Lab:see [facility] LBType and Screen Reviewed date:08/13/2024 04:12:48 PM Interpretation: Performing Lab: Notes/Report: [facility] ,Blood TypeA PositiveAntibody ScreenNEGATIVEHIV Ab/p24 Ag with Reflex Reviewed date:08/14/2024 11:30:48 AM Interpretation: Performing Lab: Notes/Report: [facility] ,HIV Ab/p24 Ag ScreenNon ReactiveNon Reactive HIV-1/HIV-2 antibodies and HIV-1 p24 antigen were NOT detected. There is no laboratory evidence of HIV infection. HIV Negative Performed at: [address] [id number] Ground Defence Officer: Gen Oviedo PhD, Phone: [phone] Performing Lab:[facility] LBRapid Plasma Reagin, Quant Reviewed date:08/14/2024 12:25:13 PM Interpretation: Performing Lab: Notes/Report: [facility] ,Rapid Plasma Reagin, QuantNon ReactiveNonRea<1:1 titer Please Note: This test does not meet current guidelines for screening and diagnosis of syphilis. This test is intended for following treatment response in patients being treated for syphilis infection. To screen for syphilis infection, a reflex cascade that includes both RPR and a treponema-specific assay should be utilized, such as Treponema pallidum (Syphilis) Screening Wolfe (854513) or Rapid Plasma Reagin (RPR) Test With Reflex to Quantitative RPR and Confirmatory Treponema pallidum Antibodies (465910). Performed at: [address] [id number] Ground Defence Officer: Gen Oviedo PhD, Phone: [phone] Performing Lab:[facility] LBHCV Antibody RFX to Quant PCR Reviewed date:08/14/2024 11:30:48 AM Interpretation: Performing Lab: Notes/Report: [facility] ,HCV AbNon ReactiveNon ReactiveInterpretation:Comment. Not infected with HCV unless early or acute infection is suspected (which may be delayed in an immunocompromised individual), or other evidence exists to indicate HCV infection. Performing Lab:[facility] LBHBsAg Screen Reviewed date:08/14/2024 12:25:02 PM Interpretation: Performing Lab: Notes/Report: [facility] ,HBsAg ScreenNegativeNegative Performed at: [facility] [address] [place] [id number] Ground Defence Officer: Gen Oviedo PhD, Phone: [phone] Performing Lab:[facility] LBUrine Culture, Routine Reviewed date:08/15/2024 09:38:56 AM Interpretation: Performing Lab: Notes/Report: [facility] ,Urine Culture, RoutineSee Below For Report Urine Culture, Routine Urine Culture, RoutineNo growth Urine Culture, Routine Urine Culture, RoutinePerformed at: [facility] Urine Culture, Routine Urine Culture, [address] [place], [place] [id number] Urine Culture, Routine Urine Culture, RoutineLab Director: Gen Oviedo PhD, Phone: [phone] Urine Culture, Routine Performing Lab:see note [facility] LB SEE REPORT - Cash Applications Clerk Id information not found for OBX-specific email producer legend IGP,Aptima HPV,Age Gdln Reviewed date:09/27/2024 07:57:34 PM Interpretation: Performing Lab: Notes/Report: SPATULA-ALONE CERVIX [facility] ,Age Gdln ACOG TestingNote. TESTS RESULT FLAG UNITS REF RANGE LAB Clinician Provided Cytology Information Source.............Cervix Other.............. No. of containers..01 ThinPrep Vial Age Algo ACOG Jill... FLAG LEGEND: L-Low Normal,H-High Normal,LL-Alert Low,HH-Alert High <-Panic Low,>-Panic High,A-Abnormal,AA-Critical Abnormal Performed at: 01 =[facility] [address] [place] [address] Yuni Barakat MD, IGP, rfx Aptima HPV ASCUNote. TESTS RESULT FLAG UNITS REF RANGE LAB DIAGNOSIS: 02 NEGATIVE FOR INTRAEPITHELIAL LESION OR MALIGNANCY. Specimen adequacy: 02 Satisfactory for evaluation. No endocervical component is identified. An endocervical component is not commonly seen in the patient. Performed by: Mateus Fitzgerald, Precision Instrument Maker (ASCP) . 02 Note: Note 02 The [...] <-Panic Low,>-Panic High,A-Abnormal,AA-Critical Abnormal Performed at: [address] [address] Yuni Barakat MD, Performed at: =[facility] [id number] Ground Defence Officer: Yuni Barakat MD, Phone: [phone] Performed at: [address] [id number] Ground Defence Officer: Yuni Barakat MD, Phone: [phone] Performing Lab:[facility] LBCBC AUTO DIFF Reviewed date:11/24/2024 06:33:39 PM Interpretation: Performing Lab: Notes/Report: [facility] ,White Blood Count10.04.0-11.0 10 3/uLRed Blood Count3.674.20-5.40 10 6/uL Fxpkukeqyu08.812.0-16.0 g/dOGtcgbtqoaz53.136.0-48.0 %Mean Corpuscular Wccerw71.5 81.0-99.0 fLMean Corpuscular Elzcgupoww44.426.7-34.0 pgMean Corpuscular HGB Conc 33.629.9-35.2 g/dLRed Cell Distribution Width13.311.0-15.0 %Platelet Etesp349 150-450 10 3/uLMean Platelet Volume9.39.5-13.5 fLNeutrophils Percent Auto83.0 43.0-75.0 %Lymphocytes Percent Auto10.420.5-60.0 %Monocytes Percent Auto5.51.7- 12.0 %Eosinophils Percent Auto0.40.9-7.0 %Basophils Percent Auto0.10.2-2.0 % Immature Granulocytes Pct Auto0.60.0-0.5 %Neutrophils Absolute Auto8.31.4-6.5 10 3/uLLymphocytes Absolute Auto1.01.2-3.8 10 3/uLMonocytes Absolute Auto0.60.3-0.8 10 3/uLEosinophils Absolute Auto0.00.0-0.7 10 3/uLBasophils Absolute Auto0.00.0- 0.1 10 3/uLImmature Granulocytes Abs Auto0.060.00-0.03 10 3/uLPerforming Lab:see note - [facility] LBGlucose 1 Hour Reviewed date:11/24/2024 06:33:39 PM Interpretation: Performing Lab: Notes/Report: [facility] ,Glucose 1 Yzbz810<130 mg/dLPerforming Lab:see note - [facility] LB US OB BPP w non-stress Reviewed date:12/21/2024 03:07:55 PM Interpretation: Performing Lab: Notes/Report: Source Facility: [place] [address] Ultrasound Report Signed Patient: MINNIE BUNCH MR#: [id number] : 1995 Acct:[id number] Age/Sex: 29 / F ADM Date: 12/21/24 Loc: US Attending Dr: Vic Eugene D.O. Ordering Physician: Vic Eugene D.O. Date of Service: 12/21/24 Procedure(s): US OB BPP w non-stress Accession Number(s): [id number] cc: Vic Eugene D.O.; Marlon Laguna M.D. [place] [address] Patient Name: MINNIE BUNCH MRN: [id number] date: 1995 Sex: F Assigned Patient Location: Current Patient Location: Accession/Order Number: [id number] Exam Date: 12/21/2024 14:56 Report Date: 12/21/2024 15:00 At the request of: VIC EUGENE DO Procedure: US OB BPP w non-stress Biophysical profile. Reason for exam: No chorionic diamniotic twin gestation. COMPARISON: None TECHNIQUE: Transabdominal imaging of the gravid uterus was obtained. FINDINGS: The parts classifier reports a fetus A BPP of 6 out of 8 with 0 points for breathing.. MVP is 6.3 cm. heart rate 135 bpm. The parts classifier reports fetus B BPP of 8 out of 8. MVP is 3.7 cm. heart rate 139 bpm. US/US OB BPP w non-stress IMPRESSION: BPP 6out of 8 for Fetus A. Correlation with NST is recommended. BPP 8 out of 8 for fetus B. Impression dictated by: Barrington Spears Jr., D.O. 12/21/2024 3:00 PM Dictation Location: [employer] Electronically authenticated by: [id number] Y Date: 12/21/2024 15:00 Dictated By: Barrington Spears M.D. Signed By: 12/21/24 1502 DD/ 1500 TD/TT: [employer] Certified Internetwork Expert:US OB BPP w non-stress Reviewed date:12/21/2024 03:07:55 PM Interpretation: Performing Lab: Notes/Report: Source Facility: [place] [address] Ultrasound Report Signed Patient: MINNIE BUNCH MR#: [id number] : 1995 Acct:[id number] Age/Sex: 29 / F ADM Date: 12/21/24 Loc: US Attending Dr: Vic Eugene D.O. Ordering Physician: Vic Eugene D.O. Date of Service: 12/21/24 Procedure(s): US OB BPP w non-stress Accession Number(s): [id number] cc: Vic Eugene D.O.; Marlon Laguna M.D. [place] [address] Patient Name: MINNIE BUNCH MRN: [facility]:[id number] date: 1995 Sex: F Assigned Patient Location: Current Patient Location: Accession/Order Number: [id number] Exam Date: 12/21/2024 14:56 Report Date: 12/21/2024 15:00 At the request of: VIC EUGENE DO Procedure: US OB BPP w non-stress Biophysical profile. Reason for exam: No chorionic diamniotic twin gestation. COMPARISON: None TECHNIQUE: Transabdominal imaging of the gravid uterus was obtained. FINDINGS: The parts classifier reports a fetus A BPP of 6 out of 8 with 0 points for breathing.. MVP is 6.3 cm. heart rate 135 bpm. The parts classifier reports fetus B BPP of 8 out of 8. MVP is 3.7 cm. heart rate 139 bpm. US/US OB BPP w non-stress IMPRESSION: BPP 6out of 8 for Fetus A. Correlation with NST is recommended. BPP 8 out of 8 for fetus B. Impression dictated by: Barrington Spears Jr., D.O. 12/21/2024 3:00 PM Dictation Location: [place] [address] Electronically authenticated by: [id number] Y Date: 12/21/2024 15:00 Dictated By: Barrington Spears M.D. Signed By: 12/21/24 1502 DD/ 1500 TD/TT: [employer] Certified Internetwork Expert:US OB BPP w non-stress Reviewed date:12/26/2024 07:41:14 PM Interpretation: Performing Lab: Notes/Report: Source Facility: [place] [address] [place] [address] Ultrasound Report Signed Patient: MINNIE BUNCH MR#: [id number] : 1995 Acct:[id number] Age/Sex: 29 / F ADM Date: 12/24/24 Loc: FBCO Attending Dr: Vic Eugene D.O. Ordering Physician: LIZABETH BOOKER M.D. Date of Service: 12/24/24 Procedure(s): US OB BPP w non-stress Accession Number(s): [id number] cc: LIZABETH BOOKER M.D.; Marlon Laguna M.D. [place] [address] Patient Name: MINNIE BUNCH MRN: [id number] date: 1995 Sex: F Assigned Patient Location: [facility] Current Patient Location: Accession/Order Number: [id number] Exam Date: 12/24/2024 14:00 Report Date: 12/24/2024 14:02 At the request of: LIZABETH BOOKER MD Procedure: US OB BPP w non-stress Biophysical profile. Reason for exam: Twin COMPARISON: 12/21/2024 TECHNIQUE: The parts classifier reports a fetus A BPP of 8 out of 8. MVP is 8.4 cm. heart rate 163 bpm. The parts classifier reports fetus B BPP of 8 out of 8. MVP is 5.4 cm. heart rate 147 bpm. US/US OB BPP w non-stress IMPRESSION: BPP 8out of 8 for Fetus A. BPP 8 out of 8 for fetus B. Impression dictated by: Barrington Spears Jr., D.O. 12/24/2024 2:02 PM Dictation Location: [place] [address] Electronically authenticated by: [id number] Y Date: 12/24/2024 14:02 Dictated By: Barrington Spears M.D. Signed By: 12/24/24 1405 DD/ 140 TD/TT: [employer] Certified Internetwork Expert:US OB BPP w non-stress Reviewed date:12/26/2024 07:41:14 PM Interpretation: Performing Lab: Notes/Report: Source Facility: [facility]-[address] [place] [address] [place] [address] Ultrasound Report Signed Patient: MINNIE BUNCH MR#: [id number] : 1995 Acct:[id number] Age/Sex: 29 / F ADM Date: 12/24/24 Loc: FBCO Attending Dr: Vic Eugene D.O. Ordering Physician: Vic Eugene D.O. Date of Service: 12/24/24 Procedure(s): US OB BPP w non-stress Accession Number(s): [id number] cc: Vic Eugene D.O.; Marlon Laguna M.D. [place] [address] Patient Name: MINNIE BUNCH MRN: [facility]:[id number] date: 1995 Sex: F [place] [facility] [place] Location: Accession/Order Number: [id number] Exam Date: 12/24/2024 14:00 Report Date: 12/24/2024 14:02 At the request of: VIC EUGENE DO Procedure: US OB BPP w non-stress Biophysical profile. Reason for exam: Twin COMPARISON: 12/21/2024 TECHNIQUE: The parts classifier reports a fetus A BPP of 8 out of 8. MVP is 8.4 cm. heart rate 163 bpm. The parts classifier reports fetus B BPP of 8 out of 8. MVP is 5.4 cm. heart rate 147 bpm. US/US OB BPP w non-stress IMPRESSION: BPP 8out of 8 for Fetus A. BPP 8 out of 8 for fetus B. Impression dictated by: Barrington Spears Jr., D.O. 12/24/2024 2:02 PM Dictation Location: [place] [address] Electronically authenticated by: [id number] Y Date: 12/24/2024 14:02 Dictated By: Barrington Spears M.D. Signed By: 12/24/24 1405 DD/ 140 TD/TT: [employer] Certified Internetwork Expert:US OB BPP w non-stress Reviewed date:12/29/2024 08:36:12 AM Interpretation: Performing Lab: Notes/Report: Source Facility: [place] [address] [place] [address] Ultrasound Report Signed Patient: MINNIE BUNCH MR#: [id number] : 1995 Acct:[id number] Age/Sex: 29 / F ADM Date: 12/28/24 Loc: US Attending Dr: Vic Eugene D.O. Ordering Physician: Vic Eugene D.O. Date of Service: 12/28/24 Procedure(s): US OB BPP w non-stress Accession Number(s): [id number] cc: Vic Eugene D.O.; Marlon Laguna M.D. [place] [address] Patient Name: MINNIE BUNCH MRN: [facility]:[id number] date: 1995 Sex: F Assigned Patient Location: US Current Patient Location: Accession/Order Number: [id number] Exam Date: 12/28/2024 15:37 Report Date: 12/28/2024 15:38 At the request of: VIC EUGENE DO Procedure: US OB BPP w non-stress Biophysical profile. Reason for exam: Twin COMPARISON: 12/24/2024 TECHNIQUE: The parts classifier reports a fetus A BPP of 8 out of 8. MVP is 4.8 cm. heart rate 141 bpm. The parts classifier reports fetus B BPP of 8 out of 8. MVP is 5.7 cm. heart rate 150 bpm. US/US OB BPP w non-stress IMPRESSION: BPP 8out of 8 for Fetus A. BPP 8 out of 8 for fetus B. Impression dictated by: Barrington Spears Jr., D.O. 12/28/2024 3:38 PM Dictation Location: [place] [address] Electronically authenticated by: [id number] Y Date: 12/28/2024 15:38 Dictated By: Barrington Spears M.D. Signed By: 12/28/24 1541 DD/ 1538 TD/TT: [employer] Certified Internetwork Expert:US OB BPP w non-stress Reviewed date:12/29/2024 08:36:12 AM Interpretation: Performing Lab: Notes/Report: Source Facility: [facility] [place] [address] Ultrasound Report Signed Patient: MINNIE BUNCH MR#: [id number] : 1995 Acct:[id number] Age/Sex: 29 / F ADM Date: 12/28/24 Loc: US Attending Dr: Vic Eugene D.O. Ordering Physician: Vic Eugene D.O. Date of Service: 12/28/24 Procedure(s): US OB BPP w non-stress Accession Number(s): [id number] cc: Vic Eugene D.O.; Marlon Laguna M.D. [place] [address] Patient Name: MINNIE BUNCH MRN: [id number] date: 1995 Sex: F Assigned Patient Location: [facility] Current Patient Location: Accession/Order Number: [id number] Exam Date: 12/28/2024 15:37 Report Date: 12/28/2024 15:38 At the request of: VIC EUGENE DO Procedure: US OB BPP w non-stress Biophysical profile. Reason for exam: Twin COMPARISON: 12/24/2024 TECHNIQUE: The parts classifier reports a fetus A BPP of 8 out of 8. MVP is 4.8 cm. heart rate 141 bpm. The parts classifier reports fetus B BPP of 8 out of 8. MVP is 5.7 cm. heart rate 150 bpm. US/US OB BPP w non-stress IMPRESSION: BPP 8out of 8 for Fetus A. BPP 8 out of 8 for fetus B. Impression dictated by: Barrington Spears Jr., D.O. 12/28/2024 3:38 PM Dictation Location: [place] [address] Electronically authenticated by: [id number] Y Date: 12/28/2024 15:38 Dictated By: Barrington Spears M.D. Signed By: 12/28/24 1541 DD/ 1538 TD/TT: [employer] Certified Internetwork Expert:US OB BPP w non-stress Reviewed date:01/04/2025 04:11:06 PM Interpretation: Performing Lab: Notes/Report: Source Facility: [place] [address] Ultrasound Report Signed Patient: MINNIE BUNCH MR#: [id number] : 1995 Acct:[id number] Age/Sex: 29 / F ADM Date: 01/04/25 Loc: US Attending Dr: Vic Eugene D.O. Ordering Physician: Vic Eugene D.O. Date of Service: 01/04/25 Procedure(s): US OB BPP w non-stress Accession Number(s): [id number] cc: Vic Eugene D.O.; Marlon Laguna M.D. [place] [address] Patient Name: MINNIE BUNCH MRN: [facility]:[id number] date: 1995 Sex: F Assigned Patient Location: US Current Patient Location: Accession/Order Number: [id number] Exam Date: 01/04/2025 14:53 Report Date: 01/04/2025 14:54 At the request of: VIC EUGENE DO Procedure: US OB BPP w non-stress Biophysical profile. Reason for exam: Twin COMPARISON: 12/24/2024 TECHNIQUE: The parts classifier reports a fetus A BPP of 8 out of 8. MVP is 6.1 cm. heart rate 145 bpm. The parts classifier reports fetus B BPP of 8 out of 8. MVP is 8.3 cm. heart rate 157 bpm. US/US OB BPP w non-stress IMPRESSION: BPP 8out of 8 for Fetus A. BPP 8 out of 8 for fetus B. Impression dictated by: Barrington Spears Jr., D.O. 01/04/2025 2:54 PM Dictation Location: [place] [address] Electronically authenticated by: [id number] Y Date: 01/04/2025 14:54 Dictated By: Barrington Spears M.D. Signed By: 01/04/25 1457 DD/ 1454 TD/TT: [employer] Certified Internetwork Expert:US OB BPP w non-stress Reviewed date:01/04/2025 04:11:06 PM Interpretation: Performing Lab: Notes/Report: Source Facility: [place] [address] [place] [address] Ultrasound Report Signed Patient: MINNIE BUNCH MR#: [id number] : 1995 Acct:[id number] Age/Sex: 29 / F ADM Date: 01/04/25 Loc: US Attending Dr: Vic Eugene D.O. Ordering Physician: Vic Eugene D.O. Date of Service: 01/04/25 Procedure(s): US OB BPP w non-stress Accession Number(s): [id number] cc: Vic Eugene D.O.; Marlon Laguna M.D. [place] [address] Patient Name: MINNIE BUNCH MRN: [facility]:[id number] date: 1995 Sex: F Assigned Patient Location: [facility] Current Patient Location: Accession/Order Number: [id number] Exam Date: 01/04/2025 14:53 Report Date: 01/04/2025 14:54 At the request of: VIC EUGENE DO Procedure: US OB BPP w non-stress Biophysical profile. Reason for exam: Twin COMPARISON: 12/24/2024 TECHNIQUE: The parts classifier reports a fetus A BPP of 8 out of 8. MVP is 6.1 cm. heart rate 145 bpm. The parts classifier reports fetus B BPP of 8 out of 8. MVP is 8.3 cm. heart rate 157 bpm. US/US OB BPP w non-stress IMPRESSION: BPP 8out of 8 for Fetus A. BPP 8 out of 8 for fetus B. Impression dictated by: Barrington Spears Jr., D.O. 01/04/2025 2:54 PM Dictation Location: [place] [address] Electronically authenticated by: [id number] Y Date: 01/04/2025 14:54 Dictated By: Barrington Spears M.D. Signed By: 01/04/25 1457 DD/ 1454 TD/TT: [employer] Certified Internetwork Expert: Reason For Referral No Information Medications Medication SIG (Take, Route, Frequency, Duration) Notes Start Date End Date Status Imitrex 100 MG 1 tablet at least 2 hours between doses as needed Orally Twice a day 4ActiveFlonase Allergy Relief 50 MCG/ACT1 spray in each nostril Nasally Once a day; Duration: 60ActiveVitamin D 50 MCG (1999 UT)1 capsule Orally Once a dayActiveMagnesium 200 MG2 tablets with a meal Orally Once a dayActive Immunizations Vaccine Route Administration Date Status Comme nts Tdap Unknown 04/26/2013 Administered Social History Tobacco Use: Social History Observation Description Date Details (start date - stop date) Never Smoker NA - NA Tobacco Use/Smoking Question Answer Notes Patient is a nonsmoker Alcohol Screen (Audit-C) Question Answer Notes Did you have a drink containing alcohol in the p ast year? Yes How often did you have 6 or more drinks on one occasion in the past year?Never (0 point)How many drinks did you have on a typical day when you were drinking in the past year?1 or 2 drinks (0 point)How often did you have a drink containing alcohol in the past year?Less than monthly (1 point)Cheqwj5Jxcynmmtqjqumr NegativeAUDIT-C (Standard) Question Answer Notes Did you have a drink containing alcohol in the p ast year? 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 RN [...] Problem Status W/U Status Risk Notes Problem Chronic pain (89174068) Other chronic cipriano n (G89.29) ActiveconfirmedProblemAnxiety (73808737)Anxiety (F41.9)ActiveconfirmedProblem Palpitations (51178340)Palpitation (R00.2)ActiveconfirmedProblemMigraine (49209834)Migraine (G43.909)ActiveconfirmedProblemHypoglycemia (702794399) Hypoglycemia (E16.2)ActiveconfirmedProblemSeasonal allergy (776473423)Seasonal allergies (J30.2)ActiveconfirmedProblemHeadache (27051803)Left-sided face pain (R51)ActiveconfirmedProblemTrigeminal neuralgia (15748371)Trigeminal neuralgia of left side of face (G50.0)Activeconfirmed Vital Signs Blood pressure diastolic 78 mm Hg 04/09/2024 Pukpff95.5 in04/09/2024lood pressure pblupfcd369 mm Hg04/09/20246070Eufcvo732.8 lbs 04/09/2024BMI25.88 kg/m204/09/2024 Encounters Encounter Location Date Provider Diagnosis [facility] [address] [place] [address] 04/09/2024 Harsh Hoy Migraine G43.909 Assessments Encounter [...] Insured Coverage Start Date Coverage End Date [facility] [address] [address] [address] [place] [id number] Eliz Bunch - patient is the spouse of the insured Medical (General) History Medical History History ICD Code Abdominal migraines AnxietyTrigeminal neuralgiaSurgical History Surgery Date(Month/Year) wisdom teeth Shpxngrzicbj69/16/2019Hospitalization History Reason Date(Month/Year) See above
== END 2025-03-22 18:02 | disposition home or self-care (01) ==
PROVIDERS: PCP Family Medicine; Visit Provider Obstetrics & Gynecology
DX: Z39.1 Encounter for care and examination of lactating mother (principal)